=== PATIENT | male | born 1965 | race Caucasian/White ===

== ENCOUNTER 2017-05-06 04:30 | Inpatient (IN) | payer MEDICARE ==
--- NOTE | 2017-05-06 04:35 | ER Document Report ---
ED General - General Chief Complaint: Chest Pain Stated Complaint: PAIN UNDER LEFT ARM/BACK PAIN Time Seen by Provider: 05/06/17 04:33 Notes: Patient is a 52 year old male who presents to the ED via EMS with a chief complaint of sudden onset left subscapular pain with SOB and pain with inspiration. States it feels like when he had a PE in the past. Describes it as a sudden onset sharp stabbing pain below his scapula without any alleviating factors. Worse with inhalation. Denies productive cough, BALDERAS, orthopnea. Denies nausea, vomiting, fevers, chills, lethargy, weakness. 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 He is currently taking coumadin 2mg and recently holding it due to diverticulitis within the past month. His INR was 3 about one week ago and has been taking 2mg PO daily. PMH: PE, PVD with edema TRAVEL OUTSIDE OF THE [place] IN LAST 30 DAYS: No - Related Data Allergies/Adverse Reactions: Penicillins Allergy (Verified 05/06/17 07:00) Home Medications: Current Home Medications Unobtainable [Unobtainable] 05/06/17 [History] Past Medical History - Social History Smoking Status: Current Every Day Smoker Family History: Reviewed & Not Pertinent Review of Systems - Review of Systems Constitutional: No symptoms reported Cardiovascular: See HPI Respiratory: See HPI Gastrointestinal: No symptoms reported Skin: No symptoms reported Neurological/Psychological: No symptoms reported Physical Exam - Vital signs Vitals: Temp Pulse Resp BP Pulse Ox 98.0 F 111 H 24 H 115/75 98 05/06/17 04:35 05/06/17 04:35 05/06/17 04:35 05/06/17 04:35 05/06/17 04:35 - Notes Notes: PHYSICAL EXAM GENERAL: Alert, interacts well. HEAD: Normocephalic, atraumatic. EYES: Pupils equal, round, and reactive to light. Extraocular movements intact. ENT: Oral mucosa moist, tongue midline. NECK: Full range of motion. Supple. Trachea midline. LUNGS: Clear to auscultation bilaterally, no wheezes, rales, or rhonchi. No respiratory distress. HEART: Regular rate and rhythm. No murmurs, gallops, or rubs. ABDOMEN: Soft, nondistended, nontender. No guarding, rebound, or rigidity.. Bowel sounds present in all 4 quadrants. EXTREMITIES: Moves all 4 extremities spontaneously. plaques covering distal extremities with chronic vascular changes 3+ pitting edema, radial and dorsalis pedis pulses 2/4 bilaterally. No cyanosis. NEUROLOGICAL: Alert and oriented x4. Normal speech. PSYCH: Normal affect, normal mood. SKIN: Warm, dry, normal turgor. Course - Re-evaluation Re-evalutation: 05/06/17 06:15 Patient has a left upper lobe cavitary lesion concerning for tuberculosis. Patient is hemodynamically stable, no acute distress and afebrile. Pain is controlled at this time. Patient has been accepted by hospitalist for workup to rule out TB. Patient agrees with plan. 05/06/17 8:00 Lactic elevated at 3/1, IV fluids initiated and hospitalist will come eval the patient to assess for appropriate dispo/floor with negative pressure room - Vital Signs Vital signs: Temp Pulse Resp BP Pulse Ox 97.8 F 78 20 120/65 95 05/07/17 03:27 05/07/17 03:27 05/07/17 03:27 05/07/17 03:27 05/07/17 03:27 - Laboratory Result Diagrams: 05/07/17 03:53 05/07/17 03:53 Laboratory results interpreted by me: 05/06/17 05/06/17 05/06/17 04:45 04:45 07:24 RBC 3.87 L Hgb 12.9 L Hct 37.8 L MCV 98 H RDW 14.2 H Lactic Acid 3.1 H ALT 20 L Creatine Kinase 35 L - Diagnostic Test Radiology reviewed: Image reviewed, Reports reviewed - EKG Interpretation by Me EKG shows normal: Sinus rhythm Rate: Normal Rhythm: NSR When compared to previous EKG there are: Previous EKG unavailable Discharge - Discharge Clinical Impression: Cavitary lesion of lung Condition: Stable Disposition: ADMITTED INPATIENT Admitting Provider: Hospitalist
[2017-05-06 05:14] LABS: ABSOLUTE BASOPHILS # (AUTO) 0.1 10^3/uL (0.0-0.2); ABSOLUTE EOSINOPHILS # (AUTO) 0.2 10^3/uL (0.0-0.6); ABSOLUTE LYMPHOCYTES (AUTO) 1.7 10^3/uL (0.5-4.7); ABSOLUTE MONOCYTES (AUTO) 0.8 10^3/uL (0.1-1.4); ABSOLUTE NEUT (AUTO) 7.4 10^3/uL (1.7-8.2); BASOPHILS % (AUTO) 1.3 % (0-2); EOSINOPHILS % (AUTO) 2.2 % (0-6); HEMATOCRIT 37.8 % (37.9-51.0); HEMOGLOBIN 12.9 g/dL (13.5-17.0); LYMPHOCYTES % (AUTO) 16.9 % (13-45); MEAN CORPUSCULAR HEMOGLOBIN 33.4 pg (27.0-33.4); MEAN CORPUSCULAR HGB CONC 34.1 g/dL (32.0-36.0); MEAN CORPUSCULAR VOLUME 98 fl (80-97); MONOCYTES % (AUTO) 7.8 % (3-13); PLATELET COUNT 406 10^3/uL (150-450); RED BLOOD COUNT 3.87 10^6/uL (4.35-5.55); RED CELL DISTRIBUTION WIDTH 14.2 % (11.5-14.0); SEGMENTED NEUTROPHILS % (AUTO) 71.8 % (42-78); TOTAL CELLS COUNTED % (AUTO) 100 %; WHITE BLOOD COUNT 10.2 10^3/uL (4.0-10.5)
[2017-05-06 05:17] LABS: INTERNATIONAL RATION (INR) 1.08; PROTHROMBIN TIME 14.7 SEC (11.4-15.4)
[2017-05-06 05:35] LABS: ALANINE AMINOTRANSFERASE 20 U/L (21-72); ALKALINE PHOSPHATASE 59 U/L (38-126); ANION GAP 15 (5-19); ASPARTATE AMINO TRANSFERASE 39 U/L (17-59); BILIRUBIN,DIRECT 0.4 mg/dL (0.0-0.4); BILIRUBIN,TOTAL 0.4 mg/dL (0.2-1.3); BLOOD UREA NITROGEN 18 mg/dL (7-20); CALCIUM 9.6 mg/dL (8.4-10.2); CARBON DIOXIDE 25 mmol/L (22-30); CHLORIDE 100 mmol/L (98-107); CREATINE KINASE 35 U/L (55-170); GLUCOSE 105 mg/dL (75-110); POTASSIUM 3.8 mmol/L (3.6-5.0); SODIUM 139.9 mmol/L (137-145); TOTAL PROTEIN 7.9 g/dL (6.3-8.2)
--- NOTE | 2017-05-06 05:37 | RADIOLOGY REPORT (SQ) ---
EXAM DESCRIPTION: CHEST SINGLE VIEW CLINICAL HISTORY: chest pain COMPARISON: None. FINDINGS: Single frontal view of the chest. The cardiomediastinal silhouette has normal size and contour. 3.4 cm cavitary appearing lesion in the left upper lobe. No displaced rib fractures identified. Upper abdominal soft tissues are unremarkable. IMPRESSION: 1. 3.4 similar cavitary appearing lesion in the left upper lobe. This could be of infectious, inflammatory, or neoplastic etiology. CT of the chest recommended for further characterization.
[2017-05-06] MEDS ORDERED: ASPIRIN 81 MG TABLET, CHEWABLE PO ONE (05:46)
[2017-05-06 05:49] LABS: CREATINE KINASE MB < 0.22 ng/mL (<4.55); TROPONIN I < 0.012 ng/mL
--- NOTE | 2017-05-06 06:30 | RADIOLOGY REPORT (SQ) ---
EXAM DESCRIPTION: CTA of the chest per PE protocol with contrast. CLINICAL HISTORY: chest pain, h/o PE COMPARISON: None Available. TECHNIQUE: CTA of the chest obtained following the uncomplicated intravenous administration of 100 mL Isovue-370. 3-D/MIP reformatted images of the chest available for evaluation. FINDINGS: Chest: Mediastinal windows demonstrate an excellent contrast bolus. No pulmonary embolus identified. Enlargement of the main pulmonary artery. This could be seen with pulmonary arterial hypertension. Visualized thyroid gland is unremarkable. Great vessels have normal anatomic configuration. Atherosclerotic calcification aortic arch. Cardiomegaly. No definite calcified coronary artery atherosclerosis. No significant pericardial effusion. No abnormalities of the esophagus. Scattered mediastinal lymph nodes are not enlarged by CT criteria. Lung windows demonstrate left upper lobe thick-walled cavitary lesion measuring 3.6 x 3.4 cm. No abnormalities of the visualized trachea or airways. No other cavitary lesions identified. No pneumothorax, consolidation, or pleural effusion. Limited images of the upper abdomen demonstrate no abnormalities of visualized portions of the liver, spleen, pancreas, adrenal glands, and left kidney. No destructive osseous lesions. DLP: 452.14 mGycm IMPRESSION: 1. No pulmonary embolus. 2. There is 3.6 cm left upper lobe thick-walled cavitary lesion. This could be related to infectious causes such as abscess, mycobacterial pneumonia, or fungal pneumonia. This could be related to inflammatory causes such as Elin's granulomatosis. This could be seen with neoplastic lesions of primary or secondary etiology. This exam was performed according to our departmental dose-optimization program, which includes automated exposure control, adjustment of the mA and/or kV according to patient size and/or use of iterative reconstruction technique.
--- NOTE | 2017-05-06 07:56 | EKG REPORT ---
SEVERITY:- ABNORMAL ECG - SINUS TACHYCARDIA BORDERLINE LEFT AXIS DEVIATION ABNRM R PROG, CONSIDER ASMI OR LEAD PLACEMENT : Confirmed by: Jamey Modi MD 06-May-2017 07:55:33
[2017-05-06] MEDS ORDERED: NORMAL SALINE 1000 ML 2,000 ML IV ONE (08:13)
[2017-05-06] MEDS ORDERED: ONDANSETRON 4 MG TAB.RAPDIS PO PRN (08:33)
[2017-05-06] MEDS ORDERED: ACETAMINOPHEN 325 MG TABLET PO PRN (08:33)
[2017-05-06] MEDS ORDERED: LORAZEPAM INJ 2 MG/1 ML VIAL IV PRN (08:41)
--- NOTE | 2017-05-06 09:15 | PDOC H&P ---
History of Present Illness Admission Date/PCP: 05/06/17 08:21 Patient complains of: Left upper chest pain History of Present Illness: Mikael WHEATLEY JR is a 52 year old male presents with complaint of left shoulder pain patient states that he has not had fever or weight loss nausea vomiting or decreased appetite. Patient also states that he has not had a productive cough. Patient reports that he drinks bourbon nightly and he also reports that he uses tobacco productives regularly. Past Medical History Cardiac Medical History: Reports: Hypertension Pulmonary Medical History: Reports: None EENT Medical History: Reports: None Neurological Medical History: Reports: None Endocrine Medical History: Reports: None Renal/ Medical History: Reports: None Malignancy Medical History: Reports: None GI Medical History: Reports: None Musculoskeltal Medical History: Reports: None Psychiatric Medical History: Reports: None Traumatic Medical History: Reports: None Hematology: Reports: None Infectious Medical History: Reports: None Past Surgical History Past Surgical History: Reports: None Social History Information Source: Patient Lives with: Alone Smoking Status: Unknown if Ever Smoked Frequency of Alcohol Use: Heavy Hx Recreational Drug Use: No Drugs: None Family History Parental Family History Reviewed: Yes Children Family History Reviewed: Yes Sibling(s) Family History Reviewed.: Yes Medication/Allergy Allergies/Adverse Reactions: Penicillins Allergy (Verified 05/06/17 07:00) Review of Systems Constitutional: ABSENT: chills, fever(s), headache(s), weight gain, weight loss Eyes: ABSENT: visual disturbances Ears: ABSENT: hearing changes Cardiovascular: ABSENT: chest pain, dyspnea on exertion, edema, orthropnea, palpitations Respiratory: ABSENT: cough, hemoptysis Gastrointestinal: ABSENT: abdominal pain, constipation, diarrhea, hematemesis, hematochezia, nausea, vomiting Genitourinary: ABSENT: dysuria, hematuria Musculoskeletal: ABSENT: joint swelling Integumentary: ABSENT: rash, wounds Neurological: ABSENT: abnormal gait, abnormal speech, confusion, dizziness, focal weakness, syncope Psychiatric: ABSENT: anxiety, depression, homidical ideation, suicidal ideation Endocrine: ABSENT: cold intolerance, heat intolerance, polydipsia, polyuria Hematologic/Lymphatic: ABSENT: easy bleeding, easy bruising Physical Exam Vital Signs: Temp Pulse Resp BP Pulse Ox 98.0 F 97 27 H 128/73 H 94 05/06/17 04:35 05/06/17 05:01 05/06/17 07:01 05/06/17 07:00 05/06/17 08:42 General appearance: PRESENT: no acute distress, well-developed, well-nourished Head exam: PRESENT: atraumatic, normocephalic Eye exam: PRESENT: conjunctiva pink, EOMI. ABSENT: scleral icterus Ear exam: PRESENT: bleeding Mouth exam: PRESENT: moist, tongue midline Neck exam: ABSENT: carotid bruit, JVD, lymphadenopathy, thyromegaly Respiratory exam: PRESENT: clear to auscultation joe. ABSENT: rales, rhonchi, wheezes Cardiovascular exam: PRESENT: RRR, other - Bilateral lower extremity edema +3. ABSENT: diastolic murmur, rubs, systolic murmur Pulses: PRESENT: normal dorsalis pedis pul Vascular exam: PRESENT: normal capillary refill GI/Abdominal exam: PRESENT: normal bowel sounds, soft. ABSENT: distended, guarding, mass, organolmegaly, rebound, tenderness Rectal exam: PRESENT: deferred Extremities exam: PRESENT: full ROM, pedal edema, other - +3 pitting edema of lower extremities. ABSENT: calf tenderness, clubbing Musculoskeletal exam: PRESENT: full ROM Neurological exam: PRESENT: alert, awake, oriented to person, oriented to place , oriented to time, oriented to situation, CN II-XII grossly intact. ABSENT: motor sensory deficit Psychiatric exam: PRESENT: appropriate affect, normal mood. ABSENT: homicidal ideation, suicidal ideation Skin exam: PRESENT: dry, intact, warm, other - +3 lower extremity pitting with thick crusty skin. ABSENT: cyanosis, rash Results Impressions: Chest X-Ray 05/06/17 05:02 IMPRESSION: 1. 3.4 similar cavitary appearing lesion in the left upper lobe. This could be of infectious, inflammatory, or neoplastic etiology. CT of the chest recommended for further characterization. Chest/Abdomen CTA 05/06/17 05:02 IMPRESSION: 1. No pulmonary embolus. 2. There is 3.6 cm left upper lobe thick-walled cavitary lesion. This could be related to infectious causes such as abscess, mycobacterial pneumonia, or fungal pneumonia. This could be related to inflammatory causes such as Elin's granulomatosis. This could be seen with neoplastic lesions of primary or secondary etiology. This exam was performed according to our departmental dose-optimization program, which includes automated exposure control, adjustment of the mA and/or kV according to patient size and/or use of iterative reconstruction technique. Assessment & Plan - Diagnosis (1) Cavitary lesion of lung Is this a current diagnosis for this admission?: Yes Plan: Suspected tuberculosis: We will place patient in respiratory isolation. Will order AFBs daily. Will consult pulmonary. Will place patient on Zithromax to cover for mycoplasma (2) Left shoulder pain Qualifiers: Chronicity: chronic Qualified Code(s): M25.512 - Pain in left shoulder; G89.29 - Other chronic pain; G89.29 - Other chronic pain Is this a current diagnosis for this admission?: Yes Plan: Secondary to left upper lobe cavity: Supportive care (3) History of DVT of lower extremity Is this a current diagnosis for this admission?: Yes Plan: We will continue patient's Coumadin. INR subtherapeutic. Patient was diagnosed with DVT in 2009 has been on chronic anticoagulation. (4) EtOH dependence Is this a current diagnosis for this admission?: Yes Plan: We will give rally bag. Will also write for as needed Ativan for EtOH withdrawal (5) Lymphedema Is this a current diagnosis for this admission?: Yes Plan: Suspect bilateral lower extremity lymphedema: We will place patient on Lasix (6) Tobacco dependence Is this a current diagnosis for this admission?: Yes Plan: We will write for nicotine patch - Time Time Spent: 30 to 50 Minutes Anticipated discharge: Home
[2017-05-06] MEDS: AZITHROMYCIN 500 MG in DEXTROSE 5%-WATER 250 ML IV SCH (09:42)
[2017-05-06] MEDS ORDERED: LEVOFLOXACIN 500 MG/D5W RTU 500 MG/100 ML RTUPB IV SCH (10:00)
[2017-05-06 13:45] LABS: HEMATOCRIT 38.4 % (37.9-51.0); HEMOGLOBIN 13.5 g/dL (13.5-17.0); MEAN CORPUSCULAR HEMOGLOBIN 33.5 pg (27.0-33.4); MEAN CORPUSCULAR HGB CONC 35.1 g/dL (32.0-36.0); MEAN CORPUSCULAR VOLUME 95 fl (80-97); PLATELET COUNT 343 10^3/uL (150-450); RED BLOOD COUNT 4.03 10^6/uL (4.35-5.55); RED CELL DISTRIBUTION WIDTH 14.2 % (11.5-14.0); WHITE BLOOD COUNT 8.3 10^3/uL (4.0-10.5)
[2017-05-06 13:49] LABS: INTERNATIONAL RATION (INR) 1.18; PROTHROMBIN TIME 15.8 SEC (11.4-15.4)
[2017-05-06] MEDS: HEPARIN SOD (PORCINE) 5,000 UNIT/ML 1 ML SYRINGE SUBCUT SCH ×2 (14:03→22:47)
[2017-05-06] MEDS ORDERED: NORMAL SALINE 1000 ML 1,000 ML with POTASSIUM CHLORIDE 20 MEQ, MAGNESIUM SULFATE 8 MEQ,... IV SCH ×5 (18:00)
[2017-05-06] MEDS: WARFARIN SODIUM 2.5 MG TABLET PO SCH (22:47)
[2017-05-07 02:39] LABS: APPEARANCE,URINE CLEAR; BILIRUBIN,URINE NEGATIVE (NEGATIVE); COLOR,URINE YELLOW; GLUCOSE, URINE NEGATIVE (NEGATIVE); KETONES,URINE NEGATIVE (NEGATIVE); LEUKOCYTE ESTERASE,URINE NEGATIVE (NEGATIVE); NITRITE,URINE NEGATIVE (NEGATIVE); PROTEIN,URINE NEGATIVE (NEGATIVE); URINE SPECIFIC GRAVITY 1.012; UROBILINOGEN,URINE NEGATIVE mg/dL (<2.0)
[2017-05-07 04:33] LABS: HEMATOCRIT 33.5 % (37.9-51.0); HEMOGLOBIN 11.5 g/dL (13.5-17.0); MEAN CORPUSCULAR HEMOGLOBIN 33.3 pg (27.0-33.4); MEAN CORPUSCULAR HGB CONC 34.4 g/dL (32.0-36.0); MEAN CORPUSCULAR VOLUME 97 fl (80-97); PLATELET COUNT 299 10^3/uL (150-450); RED BLOOD COUNT 3.46 10^6/uL (4.35-5.55); RED CELL DISTRIBUTION WIDTH 14.5 % (11.5-14.0)
[2017-05-07 04:55] LABS: ANION GAP 8 (5-19); BLOOD UREA NITROGEN 12 mg/dL (7-20); CALCIUM 9.4 mg/dL (8.4-10.2); CARBON DIOXIDE 24 mmol/L (22-30); CHLORIDE 105 mmol/L (98-107); CHOLESTEROL 138.54 mg/dL (0-200); GLUCOSE 94 mg/dL (75-110); SODIUM 137.1 mmol/L (137-145); TRIGLYCERIDES 167 mg/dL (<150)
[2017-05-07 05:02] LABS: ABSOLUTE LYMPHOCYTES# (MANUAL) 1.8 10^3/uL (0.5-4.7); ABSOLUTE MONOCYTES # (MANUAL) 0.5 10^3/uL (0.1-1.4); ABSOLUTE NEUTROPHILS# (MANUAL) 4.5 10^3/uL (1.7-8.2); BASOPHILS % (MANUAL) 0 % (0-2); EOSINOPHILS % (MANUAL) 3 % (0-6); LYMPHOCYTES % (MANUAL) 26 % (13-45); MONOCYTES % (MANUAL) 7 % (3-13); SEGMENTED NEUTROPHILS % (MAN) 64 % (42-78); TOTAL CELLS COUNTED 100
[2017-05-07 05:03] LABS: PLATELET COMMENT ADEQUATE; RBC MORPHOLOGY COMMENT NORMO-CYTIC/CHROMIC
[2017-05-07 05:05] LABS: DIRECT LDL 65 mg/dL (<100)
[2017-05-07 05:10] LABS: VLDL CHOLESTEROL 33.4 mg/dL (10-31)
[2017-05-07 05:12] LABS: FREE T4 (FREE THYROXINE) 1.48 ng/dL (0.78-2.19)
[2017-05-07 05:25] LABS: THYROID STIMULATING HORMONE 3.23 uIU/mL (0.47-4.68)
[2017-05-07] MEDS: LANSOPRAZOLE 30 MG TAB.RAP.DR PO SCH (05:53)
[2017-05-07] MEDS: HEPARIN SOD (PORCINE) 5,000 UNIT/ML 1 ML SYRINGE SUBCUT SCH ×3 (05:53→21:23)
[2017-05-07] MEDS ORDERED: NORMAL SALINE 1000 ML 1,000 ML with POTASSIUM CHLORIDE 20 MEQ, MAGNESIUM SULFATE 8 MEQ,... IV SCH ×11 (08:00→18:00)
--- NOTE | 2017-05-07 08:46 | PDOC PROGRESS REPORT ---
Subjective Progress Note for:: 05/07/17 Subjective:: She states that he is feeling well today. Nursing states that they will place a PPD today. Reason For Visit: SUSPECT TB, ETOH DEPENDENCE Physical Exam Vital Signs: Temp Pulse Resp BP Pulse Ox 98.7 F 72 18 121/71 94 05/07/17 07:42 05/07/17 07:42 05/07/17 07:42 05/07/17 07:42 05/07/17 07:42 Intake & Output 05/06/17 05/07/17 05/08/17 06:59 06:59 06:59 Intake Total 1000 Output Total 0 Balance 1000 Weight 78 kg General appearance: PRESENT: no acute distress, well-developed, well-nourished Head exam: PRESENT: atraumatic, normocephalic Eye exam: PRESENT: conjunctiva pink, EOMI. ABSENT: scleral icterus Ear exam: PRESENT: normal external ear exam Mouth exam: PRESENT: moist, tongue midline Neck exam: ABSENT: carotid bruit, JVD, lymphadenopathy, thyromegaly Respiratory exam: PRESENT: clear to auscultation joe. ABSENT: rales, rhonchi, wheezes Cardiovascular exam: PRESENT: RRR. ABSENT: diastolic murmur, rubs, systolic murmur Pulses: PRESENT: normal dorsalis pedis pul Vascular exam: PRESENT: normal capillary refill GI/Abdominal exam: PRESENT: normal bowel sounds, soft. ABSENT: distended, guarding, mass, organolmegaly, rebound, tenderness Rectal exam: PRESENT: deferred Extremities exam: PRESENT: full ROM. ABSENT: calf tenderness, clubbing, pedal edema Neurological exam: PRESENT: alert, awake, oriented to person, oriented to place , oriented to time, oriented to situation, CN II-XII grossly intact. ABSENT: motor sensory deficit Psychiatric exam: PRESENT: appropriate affect, normal mood. ABSENT: homicidal ideation, suicidal ideation Skin exam: PRESENT: dry, intact, warm. ABSENT: cyanosis, rash Results Laboratory Results: 05/07/17 03:53 05/07/17 03:53 05/06/17 05/06/17 05/07/17 11:49 13:29 02:05 WBC 8.3 RBC 4.03 L Hgb 13.5 Hct 38.4 MCV 95 MCH 33.5 H MCHC 35.1 RDW 14.2 H Plt Count 343 Seg Neutrophils % Lymphocytes % Monocytes % Eosinophils % Basophils % Absolute Neutrophils Absolute Lymphocytes Absolute Monocytes Absolute Eosinophils Absolute Basophils Sodium Potassium Chloride Carbon Dioxide Anion Gap BUN Creatinine Est GFR ( Amer) Est GFR (Non-Af Amer) Glucose Lactic Acid 1.4 Calcium Triglycerides Cholesterol LDL Cholesterol Direct VLDL Cholesterol HDL Cholesterol TSH Free T4 Urine Color YELLOW Urine Appearance CLEAR Urine pH 6.0 Ur Specific Watson 1.012 Urine Protein NEGATIVE Urine Glucose (UA) NEGATIVE Urine Ketones NEGATIVE Urine Blood SMALL H Urine Nitrite NEGATIVE Ur Leukocyte Esterase NEGATIVE Urine WBC (Auto) 0 Urine RBC (Auto) 2 05/07/17 05/07/17 05/07/17 03:53 03:53 03:53 WBC 7.0 RBC 3.46 L Hgb 11.5 L Hct 33.5 L MCV 97 MCH 33.3 MCHC 34.4 RDW 14.5 H Plt Count 299 Seg Neutrophils % Not Reportable Lymphocytes % Not Reportable Monocytes % Not Reportable Eosinophils % Not Reportable Basophils % Not Reportable Absolute Neutrophils Not Reportable Absolute Lymphocytes Not Reportable Absolute Monocytes Not Reportable Absolute Eosinophils Not Reportable Absolute Basophils Not Reportable Sodium 137.1 Potassium 4.0 Chloride 105 Carbon Dioxide 24 Anion Gap 8 BUN 12 Creatinine 0.78 Est GFR ( Amer) > 60 Est GFR (Non-Af Amer) > 60 Glucose 94 Lactic Acid Calcium 9.4 Triglycerides 167 H Cholesterol 138.54 LDL Cholesterol Direct 65 VLDL Cholesterol 33.4 H HDL Cholesterol 41 TSH 3.23 Free T4 1.48 Urine Color Urine Appearance Urine pH Ur Specific Watson Urine Protein Urine Glucose (UA) Urine Ketones Urine Blood Urine Nitrite Ur Leukocyte Esterase Urine WBC (Auto) Urine RBC (Auto) 05/06/17 13:29 Troponin I < 0.012 Impressions: Chest X-Ray 05/06/17 05:02 IMPRESSION: 1. 3.4 similar cavitary appearing lesion in the left upper lobe. This could be of infectious, inflammatory, or neoplastic etiology. CT of the chest recommended for further characterization. Chest/Abdomen CTA 05/06/17 05:02 IMPRESSION: 1. No pulmonary embolus. 2. There is 3.6 cm left upper lobe thick-walled cavitary lesion. This could be related to infectious causes such as abscess, mycobacterial pneumonia, or fungal pneumonia. This could be related to inflammatory causes such as Elin's granulomatosis. This could be seen with neoplastic lesions of primary or secondary etiology. This exam was performed according to our departmental dose-optimization program, which includes automated exposure control, adjustment of the mA and/or kV according to patient size and/or use of iterative reconstruction technique. Assessment & Plan - Diagnosis (1) Cavitary lesion of lung Is this a current diagnosis for this admission?: Yes Plan: Suspected tuberculosis: Will continue patient's respiratory isolation. AFBs pending. Pulmonary Consulted. Will continue Zithromax to cover for mycoplasma (2) Left shoulder pain Qualifiers: Chronicity: chronic Qualified Code(s): M25.512 - Pain in left shoulder; G89.29 - Other chronic pain; G89.29 - Other chronic pain Is this a current diagnosis for this admission?: Yes Plan: Secondary to left upper lobe cavity: Supportive care (3) History of DVT of lower extremity Is this a current diagnosis for this admission?: Yes Plan: We will continue patient's Coumadin. INR subtherapeutic. Patient was diagnosed with DVT in 2009 has been on chronic anticoagulation. Will continue checking INR. (4) EtOH dependence Is this a current diagnosis for this admission?: Yes Plan: Will continue current treatment. Pt has received Rally bag. (5) Lymphedema Is this a current diagnosis for this admission?: Yes Plan: Suspect bilateral lower extremity lymphedema: Lasix 40 mg PO Qdaily. Will continue to monitor. (6) Tobacco dependence Is this a current diagnosis for this admission?: Yes Plan: Will continue nicotine patch - Time Time Spent with patient: 15-24 minutes
[2017-05-07 10:12] LABS: INTERNATIONAL RATION (INR) 1.14; PROTHROMBIN TIME 15.3 SEC (11.4-15.4)
[2017-05-07] MEDS: AZITHROMYCIN 500 MG in DEXTROSE 5%-WATER 250 ML IV SCH (10:19)
[2017-05-07] MEDS: FUROSEMIDE 40 MG TABLET PO SCH (10:19)
[2017-05-07] MEDS: AMMONIUM LACTATE 12% LOTION 225GM BOTTLE TP SCH ×2 (10:25→17:39)
--- NOTE | 2017-05-07 11:42 | PDOC CONSULTATION ---
Consultation Consult Date: 05/06/17 Attending physician:: SLAVA RENEE Consult reason:: abn cxr History of Present Illness Admission Date/PCP: 05/06/17 08:21 History of Present Illness: Mikael WHEATLEY JR is a 52 year old male began to experience left scapular pain approximately 3 days prior to presentation the became worse and he defeated with him taking a deep breath so he subsequently presented to the emergency room normal chest x-ray and CT scan. He denies shortness of breath or dyspnea on exertion although he admits that he really exerts himself. He denies a productive cough or hemoptysis he is unaware of any prior PPDs. He denies a history of chronic lung disease as a child or adolescent. He admits to exposure to large amounts of passive smoke as a child as well as an adult. He is smoked one half packs a day for 36 years him approximately [id number] history and he continues to smoke up until the time of admission. Occupational exposure to potential respiratory toxins. He has no pets. He denies any recent travel. He denies angina-like chest pain, sleeps on 2 pillows, no PND, no nocturnal cough and occasional admits to edema. He is unaware of any snoring , denies restless sleep, denies nocturia, denies unrestful sleep or excessive daytime somnolence. Past Medical History Cardiac Medical History: Reports: Hypertension, Peripheral Vascular Disease Pulmonary Medical History: Reports: None EENT Medical History: Denies: Ears, Nose Neurological Medical History: Denies: Migraine, Multiple Sclerosis, Seizures Endocrine Medical History: Denies: Gestational Diabetes, Hyperthyroidism, Hypothyroidism, Obesity Renal/ Medical History: Denies: End Stage Renal Disease, Nephrolithiasis Malignancy Medical History: Reports: None GI Medical History: Reports: None Musculoskeltal Medical History: Reports: None Psychiatric Medical History: Reports: Tobacco Dependency Traumatic Medical History: Denies: Gunshot Wound, Stab Wound, Traumatic Brain Injury Hematology: Reports: None Denies: Sickle Cell Disease, Bleeding Tendencies Infectious Medical History: Reports: None Denies: Hepatitis B, Hepatitis C Past Surgical History Past Surgical History: Reports: None Social History Information Source: Patient, [facility] Records Lives with: Alone Smoking Status: Current Every Day Smoker Cigarettes Packs Per Day: 1.5 Number of Years Smokin Passive smoke exposure as: Both Frequency of Alcohol Use: Heavy Hx Recreational Drug Use: No Drugs: None Hx Prescription Drug Abuse: No Do you have pets?: No Have you had any respiratory illnesses as a child?: No Have you been exposed to any sick contacts recently?: No Have you had any recent respiratory illnesses?: No Past Social History Note: Denies any recent incarceration or being around people that have recently been incarcerated Family History Family History: Hypertension, Malignancy Parental Family History Reviewed: Yes Children Family History Reviewed: NA Sibling(s) Family History Reviewed.: NA Medication/Allergy Home Medications: Unobtainable [Unobtainable] 05/06/17 Allergies/Adverse Reactions: Penicillins Allergy (Verified 05/06/17 07:00) Review of Systems Constitutional: ABSENT: anorexia, chills, fatigue, headache(s), night sweats, weakness, weight gain, weight loss Eyes: ABSENT: visual disturbances Ears: ABSENT: hearing changes Nose, Mouth, and Throat: ABSENT: mouth pain, sore throat Cardiovascular: PRESENT: chest pain. ABSENT: dyspnea on exertion, orthropnea, palpitations Respiratory: PRESENT: cough, dyspnea. ABSENT: hemoptysis Gastrointestinal: ABSENT: abdominal pain, bloating, coffee ground emesis, constipation, diarrhea, dysphagia, heartburn, hematemesis, hematochezia, melena , nausea Genitourinary: ABSENT: difficulty urinating, dysuria, hematuria, nocturia Musculoskeletal: ABSENT: back pain, deformity, joint swelling Integumentary: ABSENT: pruritus, rash Neurological: ABSENT: abnormal gait, abnormal movements, abnormal speech, confusion, focal weakness, frequent falls, memory loss Psychiatric: ABSENT: hallucinations, homidical ideation, suicidal ideation Endocrine: ABSENT: cold intolerance, flushing, heat intolerance, menstrual abnormalities, polydipsia, polyuria Physical Exam Vital Signs: Temp Pulse Resp BP Pulse Ox 98.0 F 97 19 124/69 96 05/06/17 04:35 05/06/17 05:01 05/06/17 12:01 05/06/17 12:01 05/06/17 12:01 General appearance: PRESENT: no acute distress, cooperative, disheveled, thin, well-developed. ABSENT: mild distress, morbidly obese, obese, severe distress Head exam: PRESENT: atraumatic, normocephalic Eye exam: PRESENT: conjunctiva pale, EOMI. ABSENT: conjunctival injection, conjunctiva pink, nystagmus, periorbital swelling, scleral icterus Mouth exam: PRESENT: dry mucosa, neck supple, tongue midline. ABSENT: laceration, moist Neck exam: ABSENT: carotid bruit, JVD, lymphadenopathy, thyromegaly, tracheal deviation, tracheostomy Respiratory exam: PRESENT: decreased breath sounds, prolonged expiratory phas, rales, rhonchi, symmetrical, unlabored. ABSENT: accessory muscle use, chest wall tenderness, clear to auscultation joe, crackles, retraction, stridor, tachypnea Cardiovascular exam: PRESENT: RRR, +S1, +S2. ABSENT: rubs Pulses: PRESENT: normal radial pulses GI/Abdominal exam: PRESENT: diminished bowel sounds, soft. ABSENT: tenderness Extremities exam: ABSENT: clubbing, joint swelling Musculoskeletal exam: ABSENT: deformity, dislocation Neurological exam: PRESENT: alert, awake Psychiatric exam: PRESENT: normal mood Skin exam: PRESENT: dry, warm Results Laboratory Results: 05/06/17 13:29 05/06/17 05/06/17 11:49 13:29 WBC 8.3 RBC 4.03 L Hgb 13.5 Hct 38.4 MCV 95 MCH 33.5 H MCHC 35.1 RDW 14.2 H Plt Count 343 Lactic Acid 1.4 05/06/17 13:29 Troponin I < 0.012 Impressions: Chest X-Ray 05/06/17 05:02 IMPRESSION: 1. 3.4 similar cavitary appearing lesion in the left upper lobe. This could be of infectious, inflammatory, or neoplastic etiology. CT of the chest recommended for further characterization. Chest/Abdomen CTA 05/06/17 05:02 IMPRESSION: 1. No pulmonary embolus. 2. There is 3.6 cm left upper lobe thick-walled cavitary lesion. This could be related to infectious causes such as abscess, mycobacterial pneumonia, or fungal pneumonia. This could be related to inflammatory causes such as Elin's granulomatosis. This could be seen with neoplastic lesions of primary or secondary etiology. This exam was performed according to our departmental dose-optimization program, which includes automated exposure control, adjustment of the mA and/or kV according to patient size and/or use of iterative reconstruction technique. Assessment & Plan - Diagnosis (1) Cavitary lesion of lung Is this a current diagnosis for this admission?: Yes Plan: ro tbc YOU ARE DOING COVER WITH ABX FOR ASPIRATION BUT SUSPECT PATIENT WILL NEED BRONCHOSCOPY (2) EtOH dependence Is this a current diagnosis for this admission?: Yes Plan: DT PRECAUTIONS (3) Left shoulder pain Qualifiers: Chronicity: chronic Qualified Code(s): M25.512 - Pain in left shoulder; G89.29 - Other chronic pain; G89.29 - Other chronic pain Is this a current diagnosis for this admission?: Yes (4) Tobacco dependence Is this a current diagnosis for this admission?: Yes Plan: TRANSDERMAL NICOTINE
[2017-05-07] MEDS ORDERED: NICOTINE 21 MG/24 HR PATCH.TD24 TD ONE ×2 (13:15→23:00)
[2017-05-07] MEDS: NICOTINE 21 MG/24 HR PATCH.TD24 TD SCH (13:35)
[2017-05-07] MEDS: WARFARIN SODIUM 2.5 MG TABLET PO SCH (21:23)
[2017-05-08] MEDS: LANSOPRAZOLE 30 MG TAB.RAP.DR PO SCH (05:32)
[2017-05-08] MEDS: HEPARIN SOD (PORCINE) 5,000 UNIT/ML 1 ML SYRINGE SUBCUT SCH ×3 (05:32→21:31)
[2017-05-08 05:39] LABS: HEMATOCRIT 32.5 % (37.9-51.0); HEMOGLOBIN 11.2 g/dL (13.5-17.0); MEAN CORPUSCULAR HEMOGLOBIN 33.3 pg (27.0-33.4); MEAN CORPUSCULAR HGB CONC 34.3 g/dL (32.0-36.0); MEAN CORPUSCULAR VOLUME 97 fl (80-97); PLATELET COUNT 282 10^3/uL (150-450); RED BLOOD COUNT 3.36 10^6/uL (4.35-5.55); RED CELL DISTRIBUTION WIDTH 14.4 % (11.5-14.0); WHITE BLOOD COUNT 5.5 10^3/uL (4.0-10.5)
[2017-05-08 06:18] LABS: ABSOLUTE LYMPHOCYTES# (MANUAL) 1.9 10^3/uL (0.5-4.7); ABSOLUTE MONOCYTES # (MANUAL) 0.4 10^3/uL (0.1-1.4); BASOPHILS % (MANUAL) 0 % (0-2); EOSINOPHILS % (MANUAL) 2 % (0-6); LYMPHOCYTES % (MANUAL) 33 % (13-45); MONOCYTES % (MANUAL) 8 % (3-13); SEGMENTED NEUTROPHILS % (MAN) 55 % (42-78); TOTAL CELLS COUNTED 100
[2017-05-08 06:20] LABS: ALANINE AMINOTRANSFERASE 26 U/L (21-72); ALKALINE PHOSPHATASE 50 U/L (38-126); ANION GAP 7 (5-19); ASPARTATE AMINO TRANSFERASE 20 U/L (17-59); BILIRUBIN,DIRECT 0.2 mg/dL (0.0-0.4); BILIRUBIN,TOTAL 0.3 mg/dL (0.2-1.3); BLOOD UREA NITROGEN 15 mg/dL (7-20); CALCIUM 9.6 mg/dL (8.4-10.2); CARBON DIOXIDE 26 mmol/L (22-30); CHLORIDE 104 mmol/L (98-107); GLUCOSE 98 mg/dL (75-110); HYPOCHROMASIA SLIGHT; MAGNESIUM 1.4 mg/dL (1.6-2.3); POTASSIUM 4.2 mmol/L (3.6-5.0); SODIUM 137.2 mmol/L (137-145)
[2017-05-08 06:21] LABS: ANISOCYTOSIS SLIGHT; PLATELET COMMENT ADEQUATE; PLATELET LARGE PRESENT; POIKILOCYTOSIS SLIGHT; STOMATOCYTES SLIGHT
[2017-05-08] MEDS: FUROSEMIDE 40 MG TABLET PO SCH (09:28)
[2017-05-08] MEDS: AZITHROMYCIN 500 MG in DEXTROSE 5%-WATER 250 ML IV SCH (09:28)
[2017-05-08] MEDS ORDERED: TUBERCULIN,PURIF.PROT.DERIV. 5 TU/0.1 ML TEST 1 ML VIAL ID ONE (10:00)
[2017-05-08 11:19] LABS: INTERNATIONAL RATION (INR) 0.96; PROTHROMBIN TIME 13.5 SEC (11.4-15.4)
--- NOTE | 2017-05-08 14:11 | PDOC PROGRESS REPORT ---
Subjective Progress Note for:: 05/08/17 Subjective:: Pt states that he is feeling well. Pt states that he is not coughing up much. Reason For Visit: SUSPECT TB, ETOH DEPENDENCE Physical Exam Vital Signs: Temp Pulse Resp BP Pulse Ox 98.2 F 79 18 123/83 99 05/08/17 11:27 05/08/17 13:42 05/08/17 11:27 05/08/17 11:27 05/08/17 11:27 Intake & Output 05/07/17 05/08/17 05/09/17 06:59 06:59 06:59 Intake Total 1000 474 237 Output Total 0 0 Balance 1000 474 237 Weight 78 kg 78.1 kg General appearance: PRESENT: no acute distress, well-developed, well-nourished Head exam: PRESENT: atraumatic, normocephalic Eye exam: PRESENT: conjunctiva pink, EOMI. ABSENT: scleral icterus Ear exam: PRESENT: normal external ear exam Mouth exam: PRESENT: moist, tongue midline Neck exam: ABSENT: carotid bruit, JVD, lymphadenopathy, thyromegaly Respiratory exam: PRESENT: clear to auscultation joe. ABSENT: rales, rhonchi, wheezes Cardiovascular exam: PRESENT: RRR. ABSENT: diastolic murmur, rubs, systolic murmur Pulses: PRESENT: normal dorsalis pedis pul Vascular exam: PRESENT: normal capillary refill GI/Abdominal exam: PRESENT: normal bowel sounds, soft. ABSENT: distended, guarding, mass, organolmegaly, rebound, tenderness Extremities exam: PRESENT: other - Pt with lower ext edema +2 pitting edema bilaterally, + thick flakey crusted debrie on lower ext. Musculoskeletal exam: PRESENT: full ROM Neurological exam: PRESENT: alert, awake, oriented to person, oriented to place , oriented to time, oriented to situation, CN II-XII grossly intact. ABSENT: motor sensory deficit Psychiatric exam: PRESENT: appropriate affect, normal mood. ABSENT: homicidal ideation, suicidal ideation Skin exam: PRESENT: warm, other - + 2 pitting edema Bilateral but improving, + thick flakey crusty skin on bilateral lower ext.. ABSENT: cyanosis, rash Results Laboratory Results: 05/08/17 05:12 05/08/17 05:12 05/08/17 05/08/17 05:12 05:12 WBC 5.5 RBC 3.36 L Hgb 11.2 L Hct 32.5 L MCV 97 MCH 33.3 MCHC 34.3 RDW 14.4 H Plt Count 282 Seg Neutrophils % Not Reportable Lymphocytes % Not Reportable Monocytes % Not Reportable Eosinophils % Not Reportable Basophils % Not Reportable Absolute Neutrophils Not Reportable Absolute Lymphocytes Not Reportable Absolute Monocytes Not Reportable Absolute Eosinophils Not Reportable Absolute Basophils Not Reportable Sodium 137.2 Potassium 4.2 Chloride 104 Carbon Dioxide 26 Anion Gap 7 BUN 15 Creatinine 1.01 Est GFR ( Amer) > 60 Est GFR (Non-Af Amer) > 60 Glucose 98 Calcium 9.6 Magnesium 1.4 L Total Bilirubin 0.3 AST 20 ALT 26 Alkaline Phosphatase 50 Total Protein 6.0 L Albumin 3.0 L 05/06/17 13:29 Troponin I < 0.012 Impressions: Chest X-Ray 05/06/17 05:02 IMPRESSION: 1. 3.4 similar cavitary appearing lesion in the left upper lobe. This could be of infectious, inflammatory, or neoplastic etiology. CT of the chest recommended for further characterization. Chest/Abdomen CTA 05/06/17 05:02 IMPRESSION: 1. No pulmonary embolus. 2. There is 3.6 cm left upper lobe thick-walled cavitary lesion. This could be related to infectious causes such as abscess, mycobacterial pneumonia, or fungal pneumonia. This could be related to inflammatory causes such as Elin's granulomatosis. This could be seen with neoplastic lesions of primary or secondary etiology. This exam was performed according to our departmental dose-optimization program, which includes automated exposure control, adjustment of the mA and/or kV according to patient size and/or use of iterative reconstruction technique. Assessment & Plan - Diagnosis (1) Cavitary lesion of lung Is this a current diagnosis for this admission?: Yes Plan: Suspected tuberculosis: Will continue patient's respiratory isolation. AFBs pending. Pulmonary Consulted. Will continue Zithromax to cover for mycoplasma (2) Left shoulder pain Qualifiers: Chronicity: chronic Qualified Code(s): M25.512 - Pain in left shoulder; G89.29 - Other chronic pain; G89.29 - Other chronic pain Is this a current diagnosis for this admission?: Yes Plan: Secondary to left upper lobe cavity: Supportive care (3) History of DVT of lower extremity Is this a current diagnosis for this admission?: Yes Plan: Will increase Coumadin 5 mg QHS. INR subtherapeutic. Patient was diagnosed with DVT in 2009 has been on chronic anticoagulation. (4) EtOH dependence Is this a current diagnosis for this admission?: Yes (5) Lymphedema Is this a current diagnosis for this admission?: Yes Plan: Suspect bilateral lower extremity lymphedema: Lasix 40 mg PO Qdaily. Will continue to monitor. (6) Hypomagnesemia Is this a current diagnosis for this admission?: Yes Plan: Will give magnesium replacement. Will check Magnesium in am (7) Tobacco dependence Is this a current diagnosis for this admission?: Yes Plan: Will continue nicotine patch - Time Time Spent with patient: 15-24 minutes
[2017-05-08] MEDS: COLLAGENASE CLOSTRIDIUM HIST. OINT 30 GM TOP SCH (14:27)
[2017-05-08] MEDS: MAGNESIUM SULFATE/D5W 1 GM/100 ML RTUPB IV SCH ×2 (16:36→18:25)
[2017-05-08] MEDS ORDERED: WARFARIN SODIUM 5 MG TABLET PO SCH (22:00)
[2017-05-09 05:03] LABS: ABSOLUTE EOSINOPHILS # (AUTO) 0.2 10^3/uL (0.0-0.6); ABSOLUTE LYMPHOCYTES (AUTO) 1.7 10^3/uL (0.5-4.7); ABSOLUTE MONOCYTES (AUTO) 0.5 10^3/uL (0.1-1.4); ABSOLUTE NEUT (AUTO) 2.9 10^3/uL (1.7-8.2); BASOPHILS % (AUTO) 0.3 % (0-2); EOSINOPHILS % (AUTO) 3.8 % (0-6); HEMOGLOBIN 11.4 g/dL (13.5-17.0); LYMPHOCYTES % (AUTO) 32.3 % (13-45); MEAN CORPUSCULAR HEMOGLOBIN 33.3 pg (27.0-33.4); MEAN CORPUSCULAR HGB CONC 34.4 g/dL (32.0-36.0); MEAN CORPUSCULAR VOLUME 97 fl (80-97); MONOCYTES % (AUTO) 8.8 % (3-13); PLATELET COUNT 282 10^3/uL (150-450); RED BLOOD COUNT 3.41 10^6/uL (4.35-5.55); RED CELL DISTRIBUTION WIDTH 14.2 % (11.5-14.0); SEGMENTED NEUTROPHILS % (AUTO) 54.8 % (42-78); TOTAL CELLS COUNTED % (AUTO) 100 %; WHITE BLOOD COUNT 5.3 10^3/uL (4.0-10.5)
[2017-05-09] MEDS: LANSOPRAZOLE 30 MG TAB.RAP.DR PO SCH (05:21)
[2017-05-09] MEDS: HEPARIN SOD (PORCINE) 5,000 UNIT/ML 1 ML SYRINGE SUBCUT SCH (05:21)
[2017-05-09 05:29] LABS: ANION GAP 8 (5-19); BLOOD UREA NITROGEN 18 mg/dL (7-20); CALCIUM 9.6 mg/dL (8.4-10.2); CARBON DIOXIDE 27 mmol/L (22-30); CHLORIDE 103 mmol/L (98-107); GLUCOSE 84 mg/dL (75-110); MAGNESIUM 1.8 mg/dL (1.6-2.3); POTASSIUM 4.5 mmol/L (3.6-5.0); SODIUM 138.3 mmol/L (137-145)
[2017-05-09] MEDS ORDERED: LEVALBUTEROL HCL NEB 1.25 MG/3 ML AMPUL NEB ONE (08:00)
--- NOTE | 2017-05-09 08:41 | RADIOLOGY REPORT (SQ) ---
EXAM DESCRIPTION: CHEST PA/LAT COMPLETED DATE/TIME: 05/09/2017 7:47 am REASON FOR STUDY: L lung lesion COMPARISON: 05/06/2017 NUMBER OF VIEWS: Two view TECHNIQUE: Frontal and lateral radiographic images of the chest acquired. LIMITATIONS: None. FINDINGS: LUNGS AND PLEURA: Left upper lobe cavitary mass not significantly changed. The right lung is clear. MEDIASTINUM AND HILAR STRUCTURES: Stable heart size and mediastinal structures. HEART AND VASCULAR STRUCTURES: Stable appearance. BONES: No acute findings. HARDWARE: None in the chest. OTHER: No other significant finding. IMPRESSION: Unchanged cavitary mass left upper lobe. TECHNICAL DOCUMENTATION: JOB ID: [id number] [employer]- All Rights Reserved
[2017-05-09] MEDS: NICOTINE 21 MG/24 HR PATCH.TD24 TD SCH (09:47)
[2017-05-09] MEDS ORDERED: DEXTROSE 40% GEL 15 GM TUBE PO PRN ×2 (09:47)
[2017-05-09] MEDS ORDERED: DEXTROSE 50%-WATER 25 GM/50 ML DISP.SYRIN IV PRN ×2 (09:47)
[2017-05-09] MEDS: FUROSEMIDE 40 MG TABLET PO SCH (09:47)
[2017-05-09] MEDS: AZITHROMYCIN 500 MG in DEXTROSE 5%-WATER 250 ML IV SCH (09:47)
[2017-05-09] MEDS ORDERED: GLUCAGON,HUMAN RECOMB 1 MG INJ SUBCUT PRN (09:47)
[2017-05-09] MEDS: COLLAGENASE CLOSTRIDIUM HIST. OINT 30 GM TOP SCH (09:54)
[2017-05-09 10:04] LABS: INTERNATIONAL RATION (INR) 0.96; PROTHROMBIN TIME 13.5 SEC (11.4-15.4)
[2017-05-09] MEDS ORDERED: PHYTONADIONE INJ 10 MG/1 ML AMPULE SUBCUT PRN (11:00)
--- NOTE | 2017-05-09 12:25 | PDOC PROGRESS REPORT ---
Subjective Progress Note for:: 05/09/17 Subjective:: Awake and alert Reason For Visit: SUSPECT TB, ETOH DEPENDENCE Physical Exam Vital Signs: Temp Pulse Resp BP Pulse Ox 98.1 F 62 12 130/72 H 100 05/09/17 07:51 05/09/17 07:51 05/09/17 07:51 05/09/17 07:51 05/09/17 07:51 Intake & Output 05/08/17 05/09/17 05/10/17 06:59 06:59 06:59 Intake Total 474 1066 Output Total 0 Balance 474 1066 Weight 78.1 kg 76.7 kg General appearance: PRESENT: no acute distress, cooperative, disheveled, well- developed, well-nourished. ABSENT: mild distress, morbidly obese, obese, severe distress, thin Head exam: PRESENT: atraumatic, normocephalic Eye exam: PRESENT: conjunctiva pale, EOMI. ABSENT: conjunctival injection, conjunctiva pink, nystagmus, periorbital swelling, scleral icterus Mouth exam: PRESENT: moist, neck supple, tongue midline. ABSENT: dry mucosa, laceration Neck exam: ABSENT: carotid bruit, JVD, lymphadenopathy, thyromegaly, tracheal deviation, tracheostomy Respiratory exam: PRESENT: decreased breath sounds, prolonged expiratory phas, rhonchi, symmetrical, unlabored. ABSENT: accessory muscle use, chest wall tenderness, rales, retraction, stridor, tachypnea Cardiovascular exam: PRESENT: RRR, +S1, +S2 Pulses: PRESENT: normal radial pulses GI/Abdominal exam: PRESENT: normal bowel sounds, soft Extremities exam: ABSENT: clubbing, joint swelling Musculoskeletal exam: ABSENT: deformity, dislocation Neurological exam: PRESENT: alert, awake Psychiatric exam: PRESENT: normal mood Skin exam: PRESENT: dry, warm Results Laboratory Results: 05/09/17 03:58 05/09/17 03:58 05/09/17 05/09/17 03:58 03:58 WBC 5.3 RBC 3.41 L Hgb 11.4 L Hct 33.0 L MCV 97 MCH 33.3 MCHC 34.4 RDW 14.2 H Plt Count 282 Seg Neutrophils % 54.8 Lymphocytes % 32.3 Monocytes % 8.8 Eosinophils % 3.8 Basophils % 0.3 Absolute Neutrophils 2.9 Absolute Lymphocytes 1.7 Absolute Monocytes 0.5 Absolute Eosinophils 0.2 Absolute Basophils 0.0 Sodium 138.3 Potassium 4.5 Chloride 103 Carbon Dioxide 27 Anion Gap 8 BUN 18 Creatinine 1.11 Est GFR ( Amer) > 60 Est GFR (Non-Af Amer) > 60 Glucose 84 Calcium 9.6 Magnesium 1.8 05/06/17 13:29 Troponin I < 0.012 Impressions: Chest/Abdomen CTA 05/06/17 05:02 IMPRESSION: 1. No pulmonary embolus. 2. There is 3.6 cm left upper lobe thick-walled cavitary lesion. This could be related to infectious causes such as abscess, mycobacterial pneumonia, or fungal pneumonia. This could be related to inflammatory causes such as Elin's granulomatosis. This could be seen with neoplastic lesions of primary or secondary etiology. This exam was performed according to our departmental dose-optimization program, which includes automated exposure control, adjustment of the mA and/or kV according to patient size and/or use of iterative reconstruction technique. Chest X-Ray 05/09/17 06:00 IMPRESSION: Unchanged cavitary mass left upper lobe. Assessment & Plan - Diagnosis (1) Cavitary lesion of lung Is this a current diagnosis for this admission?: Yes Plan: Fiberoptic bronchoscopy with bronchoalveolar lavage and transbronchial biopsies scheduled for Tuesday 10 AM risk and dangers benefits discussed with patient and he agrees that he would like to continue (2) EtOH dependence Is this a current diagnosis for this admission?: Yes Plan: No evidence of DTs (3) Left shoulder pain Qualifiers: Chronicity: chronic Qualified Code(s): M25.512 - Pain in left shoulder; G89.29 - Other chronic pain; G89.29 - Other chronic pain Is this a current diagnosis for this admission?: Yes Plan: Decreased but not resolved (4) Tobacco dependence Is this a current diagnosis for this admission?: Yes Plan: TRANSDERMAL NICOTINE
[2017-05-09 14:11] LABS: APPEARANCE,URINE CLEAR; BILIRUBIN,URINE NEGATIVE (NEGATIVE); COLOR,URINE YELLOW; GLUCOSE, URINE NEGATIVE (NEGATIVE); KETONES,URINE NEGATIVE (NEGATIVE); LEUKOCYTE ESTERASE,URINE NEGATIVE (NEGATIVE); NITRITE,URINE NEGATIVE (NEGATIVE); PROTEIN,URINE NEGATIVE (NEGATIVE); URINE SPECIFIC GRAVITY 1.012; UROBILINOGEN,URINE NEGATIVE mg/dL (<2.0)
[2017-05-10 05:31] LABS: ALANINE AMINOTRANSFERASE 31 U/L (21-72); ALBUMIN 3.3 g/dL (3.5-5.0); ALKALINE PHOSPHATASE 54 U/L (38-126); ANION GAP 8 (5-19); ASPARTATE AMINO TRANSFERASE 27 U/L (17-59); BILIRUBIN,DIRECT 0.2 mg/dL (0.0-0.4); BILIRUBIN,TOTAL 0.3 mg/dL (0.2-1.3); BLOOD UREA NITROGEN 22 mg/dL (7-20); CALCIUM 9.7 mg/dL (8.4-10.2); CARBON DIOXIDE 25 mmol/L (22-30); CHLORIDE 105 mmol/L (98-107); GLUCOSE 87 mg/dL (75-110); POTASSIUM 4.4 mmol/L (3.6-5.0); SODIUM 138.2 mmol/L (137-145); TOTAL PROTEIN 6.4 g/dL (6.3-8.2)
[2017-05-10] MEDS: LANSOPRAZOLE 30 MG TAB.RAP.DR PO SCH (05:32)
[2017-05-10] MEDS ORDERED: ONDANSETRON HCL INJ/PF 4 MG/2 ML SDV ONE (08:21)
[2017-05-10] MEDS ORDERED: SUCCINYLCHOLINE CHLORIDE INJ 200 MG/10 ML VIAL ONE (08:21)
[2017-05-10] MEDS ORDERED: LIDOCAINE 2% INJ-PF (20 MG/ML) 2 ML AMPUL ONE (08:21)
[2017-05-10] MEDS: FUROSEMIDE 40 MG TABLET PO SCH (08:36)
[2017-05-10] MEDS ORDERED: EPINEPHRINE INJ 1 MG/10 ML DISP.SYRIN ONE (10:30)
[2017-05-10] MEDS ORDERED: MIDAZOLAM 2 MG/2 ML INJ ONE (10:39)
[2017-05-10] MEDS ORDERED: PROPOFOL INJ 200 MG/20 ML VIAL IV ONE (10:39)
[2017-05-10] MEDS ORDERED: FENTANYL CITRATE INJ/PF 100 MCG/2 ML AMPUL ONE (10:39)
--- NOTE | 2017-05-10 12:45 | RADIOLOGY REPORT (SQ) ---
EXAM DESCRIPTION: CHEST SINGLE VIEW COMPLETED DATE/TIME: 05/10/2017 12:13 pm REASON FOR STUDY: S/P Lung Biospy and bronchoscopy COMPARISON: CT angio chest 05/06/2017 Chest film 05/06/2017, 05/09/2017 EXAM PARAMETERS: NUMBER OF VIEWS: One view. TECHNIQUE: Single frontal radiographic view of the chest acquired. RADIATION DOSE: NA LIMITATIONS: None. FINDINGS: LUNGS AND PLEURA: 3 to 4 cm cavitary mass left upper lobe is unchanged from prior studies. No focal infiltrates. No pleural effusion. No pneumothorax. MEDIASTINUM AND HILAR STRUCTURES: No masses. Contour normal. HEART AND VASCULAR STRUCTURES: Heart normal in size. Normal vasculature. BONES: No acute findings. HARDWARE: None in the chest. OTHER: No other significant finding. IMPRESSION: No pneumothorax post left lung biopsy. 3 to 4 cm cavitary mass left upper lobe stable compared to previous studies TECHNICAL DOCUMENTATION: JOB ID: [id number] [employer]- All Rights Reserved
[2017-05-10 13:31] LABS: FLUID APPEARANCE CLEAR; FLUID COLOR COLORLESS; FLUID SOURCE LUNG; FLUID TYPE BRONCHIAL WASH; FLUID VISCOSITY LIQUID
--- NOTE | 2017-05-10 13:31 | RADIOLOGY REPORT (SQ) ---
EXAM DESCRIPTION: CHEST SINGLE VIEW; NO CHG FLUORO COMPLETED DATE/TIME: 05/10/2017 1:19 pm REASON FOR STUDY: S/P LUNG BIOPSY COMPARISON: Two-view chest 05/09/2017 FLUOROSCOPY TIME: 3.1 minutes 2 digital C-arm images saved to PACS. TECHNIQUE: Intra-operative images acquired during surgical procedure to evaluate progress. NUMBER OF IMAGES: 2 digital C-arm images LIMITATIONS: None. FINDINGS: Intra procedural imaging and fluoro during bronchoscopy. IMPRESSION: Intra procedural imaging and fluoro COMMENT: Quality ID [id number]: Final reports for procedures using fluoroscopy that document radiation exp osure indices, or exposure time and number of fluorographic images (if radiation exposure indices are not available) Please consult full operative report of the attending physician for description of the procedure. TECHNICAL DOCUMENTATION: JOB ID: [id number] [employer]- All Rights Reserved
--- NOTE | 2017-05-10 13:31 | RADIOLOGY REPORT (SQ) ---
EXAM DESCRIPTION: CHEST SINGLE VIEW; NO CHG FLUORO COMPLETED DATE/TIME: 05/10/2017 1:19 pm REASON FOR STUDY: S/P LUNG BIOPSY COMPARISON: Two-view chest 05/09/2017 FLUOROSCOPY TIME: 3.1 minutes 2 digital C-arm images saved to PACS. TECHNIQUE: Intra-operative images acquired during surgical procedure to evaluate progress. NUMBER OF IMAGES: 2 digital C-arm images LIMITATIONS: None. FINDINGS: Intra procedural imaging and fluoro during bronchoscopy. IMPRESSION: Intra procedural imaging and fluoro COMMENT: Quality ID [id number]: Final reports for procedures using fluoroscopy that document radiation exp osure indices, or exposure time and number of fluorographic images (if radiation exposure indices are not available) Please consult full operative report of the attending physician for description of the procedure. TECHNICAL DOCUMENTATION: JOB ID: [id number] [employer]- All Rights Reserved
[2017-05-10] MEDS: AZITHROMYCIN 250 MG TABLET PO SCH (13:45)
[2017-05-10] MEDS: NICOTINE 21 MG/24 HR PATCH.TD24 TD SCH (13:46)
[2017-05-10] MEDS: COLLAGENASE CLOSTRIDIUM HIST. OINT 30 GM TOP SCH (13:47)
[2017-05-10 14:09] LABS: INTERNATIONAL RATION (INR) 1.01
--- NOTE | 2017-05-10 14:23 | Operative Report ---
Operative Report DATE OF SURGERY: 05/10/17 Operative Report: Patient was kept n.p.o. 14 hours prior to procedure. Taken to the preop area where IV access was secured consents were reviewed and signatures confirmed. He was then taken to the bronchoscopy suite where he was intubated by anesthesiology. Then using a T size [place] bronchoscope was tracheobronchial tree was explored there were no abnormalities of his distal trachea no splaying of the mary is right mainstem bronchus right bronchus intermedius right middle lobe right lower lobe and right upper lobe all appear to be within normal limits. There are no abnormalities of the left mainstem bronchus left lower lobe or lingula. There were no mucosal abnormalities or changes in the subsegments of the left upper left upper lobe multiple lavages of the left upper lobe and transbronchial biopsy of the left upper lobe were taken and sent to the laboratory for appropriate cultures and studies postprocedure chest x- ray showed no pneumothorax is postprocedure SaO2 was 99% . PREOPERATIVE DIAGNOSIS: EUSEBIO cavation POSTOPERATIVE DIAGNOSIS: same OPERATION: fiberoptic bronchoscopy with bronchchoalveolar lavage and trans bronchial biopsies SURGEON: FAIZA TIJERINA ANESTHESIA: GA TISSUE REMOVED OR ALTERED: EUSEBIO lavage. EUSEBIO transbroncial bx COMPLICATIONS: none ESTIMATED BLOOD LOSS: 0 ml
--- NOTE | 2017-05-10 15:46 | PDOC PROGRESS REPORT ---
Subjective Progress Note for:: 05/10/17 Reason For Visit: SUSPECT TB, ETOH DEPENDENCE 52-year-old male with history of Alcohol dependence Lymphedema Lower extremity DVT Tobacco dependence. He presented to the hospital with left-sided shoulder pain and was found to have a left upper lobe cavitary lung lesion. He is on respiratory isolation and AFBs are pending. Pulmonology service is following the patient and he is on Zithromax. Physical Exam Vital Signs: Temp Pulse Resp BP Pulse Ox 97.8 F 62 18 121/80 98 05/09/17 19:18 05/10/17 02:00 05/09/17 19:18 05/09/17 19:18 05/09/17 19:18 Intake & Output 05/09/17 05/10/17 05/11/17 06:59 06:59 06:59 Intake Total 1066 655 Balance 1066 655 Weight 76.7 kg General appearance: PRESENT: no acute distress Head exam: PRESENT: atraumatic, normocephalic Eye exam: PRESENT: conjunctiva pink Mouth exam: PRESENT: moist Neck exam: ABSENT: tracheal deviation Respiratory exam: PRESENT: clear to auscultation joe, symmetrical, unlabored. ABSENT: accessory muscle use, crackles Cardiovascular exam: PRESENT: RRR. ABSENT: systolic murmur Vascular exam: ABSENT: pallor GI/Abdominal exam: PRESENT: normal bowel sounds, soft. ABSENT: tenderness Rectal exam: PRESENT: deferred Extremities exam: PRESENT: other - positive pedal edema and chronic venous stasis skin changes bilateral lower extremities Results Laboratory Results: 05/09/17 03:58 05/10/17 04:11 05/09/17 05/09/17 05/10/17 13:50 13:50 04:11 Sodium 138.2 Potassium 4.4 Chloride 105 Carbon Dioxide 25 Anion Gap 8 BUN 22 H Creatinine 0.99 Est GFR ( Amer) > 60 Est GFR (Non-Af Amer) > 60 Glucose 87 Calcium 9.7 Total Bilirubin 0.3 AST 27 ALT 31 Alkaline Phosphatase 54 Total Protein 6.4 Albumin 3.3 L Urine Color YELLOW Urine Appearance CLEAR Urine pH 7.0 Ur Specific [place] 1.012 Urine Protein NEGATIVE Urine Glucose (UA) NEGATIVE Urine Ketones NEGATIVE Urine Blood NEGATIVE Urine Nitrite NEGATIVE Ur Leukocyte Esterase NEGATIVE Urine WBC (Auto) 2 Urine RBC (Auto) 1 Stool Occult Blood NEGATIVE 05/07/17 09:22 Sputum Gram Stain - Final 05/07/17 09:22 Sputum Sputum Culture - Final NORMAL MANDY 05/06/17 13:29 Troponin I < 0.012 Impressions: Chest/Abdomen CTA 05/06/17 05:02 IMPRESSION: 1. No pulmonary embolus. 2. There is 3.6 cm left upper lobe thick-walled cavitary lesion. This could be related to infectious causes such as abscess, mycobacterial pneumonia, or fungal pneumonia. This could be related to inflammatory causes such as Elin's granulomatosis. This could be seen with neoplastic lesions of primary or secondary etiology. This exam was performed according to our departmental dose-optimization program, which includes automated exposure control, adjustment of the mA and/or kV according to patient size and/or use of iterative reconstruction technique. Chest X-Ray 05/09/17 06:00 IMPRESSION: Unchanged cavitary mass left upper lobe. Assessment & Plan - Diagnosis (1) Cavitary lesion of lung Is this a current diagnosis for this admission?: Yes Plan: Bronchoscopy done today- will follow up on results (2) EtOH dependence Is this a current diagnosis for this admission?: Yes (3) History of DVT of lower extremity Is this a current diagnosis for this admission?: Yes (4) Hypomagnesemia Is this a current diagnosis for this admission?: Yes Plan: Replace and monitor (5) Left shoulder pain Qualifiers: Chronicity: chronic Qualified Code(s): M25.512 - Pain in left shoulder; G89.29 - Other chronic pain; G89.29 - Other chronic pain Is this a current diagnosis for this admission?: Yes Plan: Analgesics prn. (6) Lung mass Is this a current diagnosis for this admission?: Yes Plan: s/p Bronchoscopy. (7) Lymphedema Is this a current diagnosis for this admission?: Yes Plan: chronic. (8) Tobacco dependence Is this a current diagnosis for this admission?: Yes - Time Time Spent with patient: 25-34 minutes
[2017-05-11] MEDS: LANSOPRAZOLE 30 MG TAB.RAP.DR PO SCH (05:06)
[2017-05-11 05:14] LABS: HEMATOCRIT 33.8 % (37.9-51.0); HEMOGLOBIN 11.6 g/dL (13.5-17.0); MEAN CORPUSCULAR HEMOGLOBIN 33.2 pg (27.0-33.4); MEAN CORPUSCULAR HGB CONC 34.2 g/dL (32.0-36.0); MEAN CORPUSCULAR VOLUME 97 fl (80-97); PLATELET COUNT 242 10^3/uL (150-450); RED BLOOD COUNT 3.49 10^6/uL (4.35-5.55); RED CELL DISTRIBUTION WIDTH 14.2 % (11.5-14.0)
[2017-05-11 05:18] LABS: INTERNATIONAL RATION (INR) 1.05; PROTHROMBIN TIME 14.4 SEC (11.4-15.4)
[2017-05-11 05:40] LABS: ALANINE AMINOTRANSFERASE 33 U/L (21-72); ALBUMIN 3.3 g/dL (3.5-5.0); ALKALINE PHOSPHATASE 56 U/L (38-126); ANION GAP 8 (5-19); ASPARTATE AMINO TRANSFERASE 26 U/L (17-59); BILIRUBIN,DIRECT 0.2 mg/dL (0.0-0.4); BILIRUBIN,TOTAL 0.6 mg/dL (0.2-1.3); BLOOD UREA NITROGEN 19 mg/dL (7-20); CALCIUM 9.9 mg/dL (8.4-10.2); CARBON DIOXIDE 24 mmol/L (22-30); CHLORIDE 105 mmol/L (98-107); GLUCOSE 77 mg/dL (75-110); MAGNESIUM 1.6 mg/dL (1.6-2.3); POTASSIUM 4.1 mmol/L (3.6-5.0); SODIUM 137.4 mmol/L (137-145); TOTAL PROTEIN 6.5 g/dL (6.3-8.2)
[2017-05-11] MEDS: AZITHROMYCIN 250 MG TABLET PO SCH (09:51)
[2017-05-11] MEDS: NICOTINE 21 MG/24 HR PATCH.TD24 TD SCH (09:51)
[2017-05-11] MEDS: COLLAGENASE CLOSTRIDIUM HIST. OINT 30 GM TOP SCH (09:53)
[2017-05-11] MEDS: FUROSEMIDE 40 MG TABLET PO SCH (09:54)
[2017-05-11] MEDS: MAGNESIUM SULFATE/D5W 1 GM/100 ML RTUPB IV SCH ×2 (11:52→13:55)
[2017-05-11 15:42] VITALS: BP 123/79
--- NOTE | 2017-05-11 15:54 | PDOC PROGRESS REPORT ---
Subjective Progress Note for:: 05/11/17 Subjective:: 52-year-old male with history of Alcohol dependence Lymphedema Lower extremity DVT Tobacco dependence. He presented to the hospital with left-sided shoulder pain and was found to have a left upper lobe cavitary lung lesion. CT scan of the chest showed a 3.6 cm left upper lobe thick-walled cavitary lesion. Differential diagnosis includes abscess, mycobacterial pneumonia or fungal pneumonia. Primary or secondary neoplastic lesions or Elin's granulomatosis are also in the differential diagnosis. Bronchoscopy was performed on May [address] Avilez. Multiple lavages of the left upper lobe and transbronchial biopsy were performed. Postprocedure chest x-ray showed no pneumothorax and the patient did well. Sputum AFB smear showed no acid-fast bacilli. Results are pending. Sputum Gram stain and culture were negative. Blood cultures, 2 sets have been negative for 4 days. Reason For Visit: SUSPECT TB, ETOH DEPENDENCE Physical Exam Vital Signs: Temp Pulse Resp BP Pulse Ox 97.6 F 65 12 135/80 H 99 05/11/17 07:38 05/11/17 07:38 05/11/17 07:38 05/11/17 07:38 05/11/17 07:38 Intake & Output 05/10/17 05/11/17 05/12/17 06:59 06:59 06:59 Intake Total 655 1187 Output Total 10 Balance 655 1177 Weight 77.9 kg General appearance: PRESENT: no acute distress Eye exam: ABSENT: nystagmus Ear exam: PRESENT: normal external ear exam Neck exam: ABSENT: tracheal deviation Respiratory exam: PRESENT: rhonchi, unlabored. ABSENT: wheezes GI/Abdominal exam: PRESENT: normal bowel sounds, soft. ABSENT: tenderness Rectal exam: PRESENT: deferred Results Laboratory Results: 05/11/17 03:59 05/11/17 03:59 05/10/17 05/11/17 05/11/17 11:14 03:59 03:59 WBC 9.0 RBC 3.49 L Hgb 11.6 L Hct 33.8 L MCV 97 MCH 33.2 MCHC 34.2 RDW 14.2 H Plt Count 242 Sodium 137.4 Potassium 4.1 Chloride 105 Carbon Dioxide 24 Anion Gap 8 BUN 19 Creatinine 1.02 Est GFR ( Amer) > 60 Est GFR (Non-Af Amer) > 60 Glucose 77 Calcium 9.9 Phosphorus 4.0 Magnesium 1.6 Total Bilirubin 0.6 AST 26 ALT 33 Alkaline Phosphatase 56 Total Protein 6.5 Albumin 3.3 L Fluid Type BRONCHIAL WASH Fluid Source LUNG Fluid Color COLORLESS Fluid Appearance CLEAR Fluid Viscosity LIQUID Fluid WBC 14 Fluid RBC 17 05/06/17 13:29 Troponin I < 0.012 Impressions: Chest/Abdomen CTA 05/06/17 05:02 IMPRESSION: 1. No pulmonary embolus. 2. There is 3.6 cm left upper lobe thick-walled cavitary lesion. This could be related to infectious causes such as abscess, mycobacterial pneumonia, or fungal pneumonia. This could be related to inflammatory causes such as Elin's granulomatosis. This could be seen with neoplastic lesions of primary or secondary etiology. This exam was performed according to our departmental dose-optimization program, which includes automated exposure control, adjustment of the mA and/or kV according to patient size and/or use of iterative reconstruction technique. Fluoroscopy 05/10/17 00:00 IMPRESSION: Intra procedural imaging and fluoro Chest X-Ray 05/10/17 09:48 IMPRESSION: No pneumothorax post left lung biopsy. 3 to 4 cm cavitary mass left upper lobe stable compared to previous studies Assessment & Plan - Diagnosis (1) Cavitary lesion of lung Is this a current diagnosis for this admission?: Yes (2) EtOH dependence Is this a current diagnosis for this admission?: Yes (3) History of DVT of lower extremity Is this a current diagnosis for this admission?: Yes (4) Hypomagnesemia Is this a current diagnosis for this admission?: Yes (5) Left shoulder pain Qualifiers: Chronicity: chronic Qualified Code(s): M25.512 - Pain in left shoulder; G89.29 - Other chronic pain; G89.29 - Other chronic pain Is this a current diagnosis for this admission?: Yes (6) Lung mass Is this a current diagnosis for this admission?: Yes (7) Lymphedema Is this a current diagnosis for this admission?: Yes (8) Tobacco dependence Is this a current diagnosis for this admission?: Yes - Time Time Spent with patient: 15-24 minutes
--- NOTE | 2017-05-11 15:59 | PDOC DISCHARGE SUMMARY ---
General - Admit/Disc Date/PCP Admission Date/Primary Care Provider: 05/06/17 08:21 Dr. Alexandra Huerta Pulm: Dr. Dario Avilez Discharge Date: 05/11/17 - Discharge Diagnosis (1) Cavitary lesion of lung Is this a current diagnosis for this admission?: Yes Summary: s/p bronchoscopy with lavage and biopsies on 05/10/17- to f/u with Dr. Avilez (2) EtOH dependence Is this a current diagnosis for this admission?: Yes (3) History of DVT of lower extremity Is this a current diagnosis for this admission?: Yes (4) Hypomagnesemia Is this a current diagnosis for this admission?: Yes (5) Left shoulder pain Is this a current diagnosis for this admission?: Yes (6) Lung mass Is this a current diagnosis for this admission?: Yes (7) Lymphedema Is this a current diagnosis for this admission?: Yes (8) Tobacco dependence Is this a current diagnosis for this admission?: Yes - Additional Information Resuscitation Status: Full Code Discharge Diet: As Tolerated Discharge Activity: Activity As Tolerated Home Medications: Lisinopril [Zestril] 5 mg PO DAILY 05/11/17 Magnesium Oxide [Mag-Ox 400 mg Tablet] 400 mg PO DAILY@1100 tablet 05/11/17 Nicotine [Nicoderm 21 mg/24 Hr Transderm Patch] 1 each TD DAILY #0 patch.td24 Warfarin Sodium [Coumadin 4 mg Tablet] 4 mg PO DAILY 05/11/17 Warfarin Sodium [Coumadin 5 mg Tablet] 5 mg PO QHS tablet 05/11/17 History of Present Illness History of Present Illness: Mikael WHEATLEY JR is a 52 year old male with history of Alcohol dependence Lymphedema Lower extremity DVT Tobacco dependence. He presented to the hospital with left-sided shoulder pain and was found to have a left upper lobe cavitary lung lesion. Sputum AFB negative x 3 Bronchoscopy with lavage and biopsy done on 05/10/[address] Avilez. He tolerated the procedure well, and is stable for discharge. He needs to follow up with his PCP in [address] Avilez in 1 week Physical Exam Vital Signs: Temp Pulse Resp BP Pulse Ox 97.8 F 59 L 18 123/79 100 05/11/17 15:25 05/11/17 15:25 05/11/17 15:25 05/11/17 15:25 05/11/17 15:25 Intake & Output 05/10/17 05/11/17 05/12/17 06:59 06:59 06:59 Intake Total 655 1187 Output Total 10 Balance 655 1177 Weight 77.9 kg General appearance: PRESENT: no acute distress Eye exam: ABSENT: nystagmus Mouth exam: PRESENT: neck supple Neck exam: ABSENT: tracheal deviation Respiratory exam: PRESENT: rhonchi, unlabored Cardiovascular exam: PRESENT: RRR - He has b/l Lower extremity lymphedema Results Laboratory Results: 05/11/17 03:59 05/11/17 03:59 05/11/17 05/11/17 03:59 03:59 WBC 9.0 RBC 3.49 L Hgb 11.6 L Hct 33.8 L MCV 97 MCH 33.2 MCHC 34.2 RDW 14.2 H Plt Count 242 Sodium 137.4 Potassium 4.1 Chloride 105 Carbon Dioxide 24 Anion Gap 8 BUN 19 Creatinine 1.02 Est GFR ( Amer) > 60 Est GFR (Non-Af Amer) > 60 Glucose 77 Calcium 9.9 Phosphorus 4.0 Magnesium 1.6 Total Bilirubin 0.6 AST 26 ALT 33 Alkaline Phosphatase 56 Total Protein 6.5 Albumin 3.3 L 05/10/17 11:14 Bronchial Washings AFB Smear Concentration - Final 05/10/17 11:14 Bronchial Washings Acid Fast Bacilli Smear - Final 05/08/17 05:30 Sputum AFB Smear Concentration - Final 05/08/17 05:30 Sputum Acid Fast Bacilli Smear - Final 05/07/17 09:22 Sputum AFB Smear Concentration - Final 05/07/17 09:22 Sputum Acid Fast Bacilli Smear - Final 05/06/17 21:00 Sputum AFB Smear Concentration - Final 05/06/17 21:00 Sputum Acid Fast Bacilli Smear - Final 05/06/17 13:29 Blood Blood Culture - Final NO GROWTH IN 5 DAYS 05/06/17 09:45 Blood Blood Culture - Final NO GROWTH IN 5 DAYS 05/06/17 13:29 Troponin I < 0.012 Impressions: Chest/Abdomen CTA 05/06/17 05:02 IMPRESSION: 1. No pulmonary embolus. 2. There is 3.6 cm left upper lobe thick-walled cavitary lesion. This could be related to infectious causes such as abscess, mycobacterial pneumonia, or fungal pneumonia. This could be related to inflammatory causes such as Elin's granulomatosis. This could be seen with neoplastic lesions of primary or secondary etiology. This exam was performed according to our departmental dose-optimization program, which includes automated exposure control, adjustment of the mA and/or kV according to patient size and/or use of iterative reconstruction technique. Fluoroscopy 05/10/17 00:00 IMPRESSION: Intra procedural imaging and fluoro Chest X-Ray 05/10/17 09:48 IMPRESSION: No pneumothorax post left lung biopsy. 3 to 4 cm cavitary mass left upper lobe stable compared to previous studies Status: Image reviewed by me Plan Time Spent: Greater than 30 Minutes
[2017-05-12] MEDS ORDERED: MAGNESIUM OXIDE 400 MG TABLET PO SCH (11:00)
--- NOTE | 2017-05-12 19:17 | PDOC PROGRESS REPORT ---
Subjective Progress Note for:: 05/11/17 Subjective:: Awake and alert Reason For Visit: SUSPECT TB, ETOH DEPENDENCE Physical Exam Vital Signs: Temp Pulse Resp BP Pulse Ox 97.8 F 59 L 18 123/79 100 05/11/17 15:25 05/11/17 15:25 05/11/17 15:25 05/11/17 15:25 05/11/17 15:25 Intake & Output 05/11/17 05/12/17 05/13/17 06:59 06:59 06:59 Intake Total 1187 Output Total 10 Balance 1177 Weight 77.9 kg General appearance: PRESENT: no acute distress, cooperative, disheveled, thin, well-developed. ABSENT: mild distress, morbidly obese, obese, severe distress Head exam: PRESENT: atraumatic, normocephalic Eye exam: PRESENT: conjunctiva pale, EOMI. ABSENT: conjunctival injection, conjunctiva pink, scleral icterus Mouth exam: PRESENT: moist, neck supple, tongue midline. ABSENT: dry mucosa, laceration Neck exam: ABSENT: carotid bruit, JVD, lymphadenopathy, thyromegaly, tracheal deviation, tracheostomy Respiratory exam: PRESENT: decreased breath sounds, prolonged expiratory phas, rhonchi, symmetrical, unlabored. ABSENT: accessory muscle use, chest wall tenderness, clear to auscultation joe, crackles, rales, retraction, stridor, tachypnea Cardiovascular exam: PRESENT: RRR, +S1, +S2 Pulses: PRESENT: normal radial pulses GI/Abdominal exam: PRESENT: diminished bowel sounds, soft Extremities exam: PRESENT: full ROM. ABSENT: clubbing, joint swelling Musculoskeletal exam: PRESENT: ambulatory, full ROM. ABSENT: deformity, dislocation Neurological exam: PRESENT: alert, awake Psychiatric exam: PRESENT: normal mood Skin exam: PRESENT: dry, warm Results Laboratory Results: 05/11/17 03:59 05/11/17 03:59 05/10/17 11:14 Bronchial Washings Gram Stain - Final 05/10/17 11:14 Bronchial Washings Bronchial Washings Culture - Final NORMAL MANDY 05/10/17 11:14 Bronchial Washings AFB Smear Concentration - Final 05/10/17 11:14 Bronchial Washings Acid Fast Bacilli Smear - Final 05/08/17 05:30 Sputum AFB Smear Concentration - Final 05/08/17 05:30 Sputum Acid Fast Bacilli Smear - Final 05/07/17 09:22 Sputum AFB Smear Concentration - Final 05/07/17 09:22 Sputum Acid Fast Bacilli Smear - Final 05/06/17 21:00 Sputum AFB Smear Concentration - Final 05/06/17 21:00 Sputum Acid Fast Bacilli Smear - Final 05/06/17 13:29 Troponin I < 0.012 Impressions: Chest/Abdomen CTA 05/06/17 05:02 IMPRESSION: 1. No pulmonary embolus. 2. There is 3.6 cm left upper lobe thick-walled cavitary lesion. This could be related to infectious causes such as abscess, mycobacterial pneumonia, or fungal pneumonia. This could be related to inflammatory causes such as Elin's granulomatosis. This could be seen with neoplastic lesions of primary or secondary etiology. This exam was performed according to our departmental dose-optimization program, which includes automated exposure control, adjustment of the mA and/or kV according to patient size and/or use of iterative reconstruction technique. Fluoroscopy 05/10/17 00:00 IMPRESSION: Intra procedural imaging and fluoro Chest X-Ray 05/10/17 09:48 IMPRESSION: No pneumothorax post left lung biopsy. 3 to 4 cm cavitary mass left upper lobe stable compared to previous studies Assessment & Plan - Diagnosis (1) Cavitary lesion of lung Is this a current diagnosis for this admission?: Yes Plan: awaiting path report (2) EtOH dependence Is this a current diagnosis for this admission?: Yes Plan: No evidence of DTs (3) Left shoulder pain Qualifiers: Chronicity: chronic Qualified Code(s): M25.512 - Pain in left shoulder; G89.29 - Other chronic pain; G89.29 - Other chronic pain Is this a current diagnosis for this admission?: Yes Plan: improved (4) Tobacco dependence Is this a current diagnosis for this admission?: Yes Plan: TRANSDERMAL NICOTINE
== END 2017-05-11 16:00 | disposition home or self-care (01) | DRG 168 ==
LOC: ER 04:30 → EH 08:21 → 3N 20:45 → 4N 05-10 18:20
PROVIDERS: ADMIT Emergency Medicine; ATTEND Emergency Medicine
PROC: 0BBG8ZX Excision of Left Upper Lung Lobe, Via Natural or Artificial Opening Endoscopic, Diagnostic (ICD-10-PCS; principal; 2017-05-10 10:00)
PROC: 0B9G8ZX Drainage of Left Upper Lung Lobe, Via Natural or Artificial Opening Endoscopic, Diagnostic (ICD-10-PCS; 2017-05-10 10:00)
DX: R91.8 Other nonspecific abnormal finding of lung field (principal); I10 Essential (primary) hypertension; I73.1 Thromboangiitis obliterans [Buerger's disease]; F10.20 Alcohol dependence, uncomplicated; M25.512 Pain in left shoulder; G89.29 Other chronic pain; E83.42 Hypomagnesemia; I89.0 Lymphedema, not elsewhere classified; Z79.01 Long term (current) use of anticoagulants; Z79.899 Other long term (current) drug therapy; Z86.718 Personal history of other venous thrombosis and embolism; F17.210 Nicotine dependence, cigarettes, uncomplicated; Z88.0 Allergy status to penicillin
CPT/HCPCS: 31624; 31628; 36415; 520; 71045; 71046; 71275; 80048; 80053; 80061; 81001; 82272; 82550; 82553; 83036; 83605; 83735; 84100; 84439; 84443; 84484; 85025; 85027; 85610; 87015; 87040; 87070; 87101; 87116; 87205; 87206; 88305; 89050; 93005; 93010; 99285; J0171; J0330; J0456; J1644; J2250; J2405; J2704; J3010; J3411; J3475; J3480; J3490; J7030; J7060

== ENCOUNTER 2018-07-20 08:03 | Inpatient (IN) | payer MEDICARE ==
--- NOTE | 2018-07-20 09:28 | ER Document Report ---
ED General - General Chief Complaint: Abnormal Lab Results Stated Complaint: ABNORMAL LABS Time Seen by Provider: 07/20/18 09:00 TRAVEL OUTSIDE OF THE [place] IN LAST 30 DAYS: No - HPI Notes: Patient is a 53-year-old male that presents to the emergency department for chief complaint of anemia and chest pain. Patient was told to come the emergency room yesterday by his primary care doctor for anemia. He does have a history of anemia in the past. He denies any hemoptysis, hematemesis, or black/bloody stools. He states he did require blood transfusion the last time he was in the hospital. Patient is complaining of pain over his left chest that has been constant for the last few days. He states it is achy with periods of sharp exacerbation. He states it is worse with coughing. He denies associated fevers or chills. He does have a history of a cavitary lung lesion in his left upper lobe and states he is not on any active treatment for that currently. He states he has an appointment with Dr. Avilez, pulmonology, on October 25. He states that the lung lesion biopsies have all returned indeterminant or normal. Past Medical History: History of alcohol abuse, history of DVT, anemia, cavitary lung lesion Past Surgical History: Bronchoscopy x2, pulmonary biopsy Social History: Reviewed in chart Family History: Reviewed and noncontributory for presenting illness Allergies: Reviewed, see documented allergy list. REVIEW OF SYSTEMS: CONSTITUTIONAL : No fever No chills No diaphoresis No recent illness EENT: No vision changes No congestion No sore throat CARDIOVASCULAR: chest pain No palpitations RESPIRATORY: No shortness of breath cough No difficulty breathing GASTROINTESTINAL: No abdominal pain No nausea No vomiting No diarrhea GENITOURINARY: No dysuria No hematuria No difficulty urinating MUSCULOSKELETAL: No back pain No leg pain No arm pain SKIN: No rashes No lesions LYMPHATIC: No swollen, enlarged glands. NEUROLOGICAL: No lightheadedness No headache No weakness No paresthesias PSYCHIATRIC: No anxiety No depression PHYSICAL EXAMINATION: Vital signs reviewed, nursing noted reviewed. GENERAL: Well-appearing, well-nourished and in no acute distress. HEAD: Atraumatic, normocephalic. EYES: Eyes appear normal, extraocular movements intact, sclera anicteric, conjunctiva are pale ENT: nares patent, oropharynx clear without exudates. Moist mucous membranes. NECK: Normal range of motion, supple without lymphadenopathy LUNGS: Breath sounds diminished to auscultation bilaterally, left greater than right. No wheezes rales or rhonchi. No tachypnea or accessory muscle use HEART: Regular rate and rhythm without murmurs ABDOMEN: Soft, nontender, normoactive bowel sounds. No rebound, guarding, or rigidity. No masses appreciated. EXTREMITIES: Nontender, good range of motion, no pitting or edema. NEUROLOGICAL: No focal neurological deficits. Moves all extremities spontaneously Motor and sensory grossly intact on exam. PSYCH: Normal mood, normal affect. SKIN: Warm, Dry, normal turgor, no rashes or lesions noted on exposed skin, pale - Related Data Allergies/Adverse Reactions: Penicillins Allergy (Verified 07/20/18 08:05) Past Medical History - Social History Smoking Status: Never Smoker Family History: Hypertension, Malignancy - Mother with breast cancer - Past Medical History Cardiac Medical History: Reports: Hx Hypertension, Hx Peripheral Vascular Disease Pulmonary Medical History: Reports: Hx Pneumonia - With left upper lobe cavitation, negative AFB and bronchoscopy April 2017 Neurological Medical History: Denies: Hx Migraine, Hx Seizures Endocrine Medical History: Denies: Hx Hyperthyroidism, Hx Hypothyroidism Renal/ Medical History: Denies: Hx End Stage Renal Disease, Hx Peritoneal Dialysis Traumatic Medical History: Denies: Hx Gunshot Wound, Hx Traumatic Brain Injury Physical Exam - Vital signs Vitals: Temp Pulse Resp BP Pulse Ox 97.6 F 74 18 159/71 H 96 07/20/18 08:11 07/20/18 08:11 07/20/18 08:11 07/20/18 08:11 07/20/18 08:11 Course - Re-evaluation Re-evalutation: 07/20/18 09:27 Vitals reviewed. Nursing notes reviewed. Patient was unsure of the abnormal lab value when he presented so I did contact [facility] who informed me that he had a hemoglobin of 6.8 on blood draw Tuesday. Repeat hemoglobin will be obtained today however patient does appear pale so this is likely accurate. He has no signs of active bleeding. He is otherwise hemodynamically stable and in no acute distress. 07/20/18 10:51 Patient reevaluated and is still hemodynamically stable. He has no current complaints. His hemoglobin is 6.6 and he will be transfused 2 units packed red blood cells. Patient is also supratherapeutic on his INR greater than 6. Because of his acute anemia a dose of oral vitamin K will be given for INR reversal. Patient still has no signs of active bleeding. He does have chronic anemia however this is more significant than his baseline. Patient's chest x- ray shows a left upper lobe lesion consistent with his prior x-rays however does appear slightly enlarged. Patient has no leukocytosis or fevers. Antibiotics will be held until pulmonary consult can be obtained given the chronic nature of his lung lesion and history of biopsy in the past. Patient in agreement with admission. Case discussed with Dr. Avalos and Jodi Lutz NP who accepted admission. Laboratory 07/20/18 07/20/18 07/20/18 09:20 09:20 09:20 WBC 7.4 RBC 2.89 L Hgb 6.6 L Hct 21.3 L MCV 74 L MCH 22.8 L MCHC 31.0 L RDW 21.3 H Plt Count 378 Seg Neutrophils % 77.1 Lymphocytes % 11.3 L Monocytes % 7.4 Eosinophils % 3.8 Basophils % 0.4 Absolute Neutrophils 5.7 Absolute Lymphocytes 0.8 Absolute Monocytes 0.5 Absolute Eosinophils 0.3 Absolute Basophils 0.0 PT INR APTT Sodium 135.6 L Potassium 3.0 L* Chloride 100 Carbon Dioxide 27 Anion Gap 9 BUN 9 Creatinine 0.71 Est GFR ( Amer) > 60 Est GFR (Non-Af Amer) > 60 Glucose 82 Calcium 8.8 Total Bilirubin 0.2 Direct Bilirubin 0.1 Neonat Total Bilirubin Not Reportable Neonat Direct Bilirubin Not Reportable Neonat Indirect Bili Not Reportable AST 23 ALT 16 L Alkaline Phosphatase 97 Troponin I Total Protein 7.4 Albumin 3.3 L Blood Type A NEGATIVE Antibody Screen NEGATIVE Crossmatch See Detail 07/20/18 07/20/18 09:20 09:20 WBC RBC Hgb Hct MCV MCH MCHC RDW Plt Count Seg Neutrophils % Lymphocytes % Monocytes % Eosinophils % Basophils % Absolute Neutrophils Absolute Lymphocytes Absolute Monocytes Absolute Eosinophils Absolute Basophils PT 61.2 H* INR 6.68 H* APTT 100.8 H Sodium Potassium Chloride Carbon Dioxide Anion Gap BUN Creatinine Est GFR ( Amer) Est GFR (Non-Af Amer) Glucose Calcium Total Bilirubin Direct Bilirubin Neonat Total Bilirubin Neonat Direct Bilirubin Neonat Indirect Bili AST ALT Alkaline Phosphatase Troponin I < 0.012 Total Protein Albumin Blood Type Antibody Screen Crossmatch Chest X-Ray 07/20/18 09:20 IMPRESSION: There is increased size and conspicuity of a masslike opacity of the left upper lobe. Findings are very worrisome for malignancy although infection and inflammation are differential considerations per previously imaged cavitary lesion at this location. Recommend CT to further evaluate. - Vital Signs Vital signs: Temp Pulse Resp BP Pulse Ox 97.6 F 74 18 139/67 H 98 07/20/18 08:11 07/20/18 08:11 07/20/18 10:01 07/20/18 10:01 07/20/18 10:01 - Laboratory Result Diagrams: 07/20/18 09:20 07/20/18 09:20 Laboratory results interpreted by me: 07/20/18 07/20/18 07/20/18 09:20 09:20 09:20 RBC 2.89 L Hgb 6.6 L Hct 21.3 L MCV 74 L MCH 22.8 L MCHC 31.0 L RDW 21.3 H Lymphocytes % 11.3 L PT INR APTT Sodium 135.6 L Potassium 3.0 L* ALT 16 L Albumin 3.3 L Crossmatch See Detail 07/20/18 09:20 RBC Hgb Hct MCV MCH MCHC RDW Lymphocytes % PT 61.2 H* INR 6.68 H* APTT 100.8 H Sodium Potassium ALT Albumin Crossmatch - EKG Interpretation by Me Additional EKG results interpreted by me: 07/20/18 10:02 Interpreted by myself [id number]: Normal sinus rhythm, rate 79, PACs, first-degree AV block with LA of 212, normal axis Discharge - Discharge Clinical Impression: Supratherapeutic INR, Consolidation of left upper lobe of lung Anemia Qualifiers: Anemia type: other cause Other causes of anemia: other cause, not classified Qualified Code(s): D64.89 - Other specified anemias Condition: Stable Disposition: ADMITTED INPATIENT Admitting Provider: Hospitalist Unit Admitted: Medical Floor
[2018-07-20 09:41] LABS: ABSOLUTE EOSINOPHILS # (AUTO) 0.3 10^3/uL (0.0-0.6); ABSOLUTE LYMPHOCYTES (AUTO) 0.8 10^3/uL (0.5-4.7); ABSOLUTE MONOCYTES (AUTO) 0.5 10^3/uL (0.1-1.4); ABSOLUTE NEUT (AUTO) 5.7 10^3/uL (1.7-8.2); BASOPHILS % (AUTO) 0.4 % (0-2); EOSINOPHILS % (AUTO) 3.8 % (0-6); HEMATOCRIT 21.3 % (37.9-51.0); LYMPHOCYTES % (AUTO) 11.3 % (13-45); MEAN CORPUSCULAR HEMOGLOBIN 22.8 pg (27.0-33.4); MEAN CORPUSCULAR VOLUME 74 fl (80-97); MONOCYTES % (AUTO) 7.4 % (3-13); PLATELET COUNT 378 10^3/uL (150-450); RED BLOOD COUNT 2.89 10^6/uL (4.35-5.55); RED CELL DISTRIBUTION WIDTH 21.3 % (11.5-14.0); SEGMENTED NEUTROPHILS % (AUTO) 77.1 % (42-78); TOTAL CELLS COUNTED % (AUTO) 100 %; WHITE BLOOD COUNT 7.4 10^3/uL (4.0-10.5)
[2018-07-20 09:55] LABS: PARTIAL THROMBOPLASTIN TIME 100.8 SEC (23.5-35.8)
[2018-07-20 10:05] LABS: ALANINE AMINOTRANSFERASE 16 U/L (21-72); ALBUMIN 3.3 g/dL (3.5-5.0); ALKALINE PHOSPHATASE 97 U/L (38-126); ANION GAP 9 (5-19); ASPARTATE AMINO TRANSFERASE 23 U/L (17-59); BILIRUBIN,DIRECT 0.1 mg/dL (0.0-0.4); BILIRUBIN,TOTAL 0.2 mg/dL (0.2-1.3); BLOOD UREA NITROGEN 9 mg/dL (7-20); CALCIUM 8.8 mg/dL (8.4-10.2); CARBON DIOXIDE 27 mmol/L (22-30); CHLORIDE 100 mmol/L (98-107); GLUCOSE 82 mg/dL (75-110); SODIUM 135.6 mmol/L (137-145); TOTAL PROTEIN 7.4 g/dL (6.3-8.2)
[2018-07-20 10:09] LABS: HEMOGLOBIN 6.6 g/dL (13.5-17.0)
[2018-07-20 10:13] LABS: INTERNATIONAL RATION (INR) 6.68; PROTHROMBIN TIME 61.2 SEC (11.4-15.4)
[2018-07-20] MEDS ORDERED: NORMAL SALINE 250 ML IV PRN ×2 (10:17)
[2018-07-20] MEDS ORDERED: PHYTONADIONE 5 MG TABLET PO ONE (10:18)
[2018-07-20] MEDS ORDERED: POTASSIUM CHLORIDE 10 MEQ CAPSULE.ER PO ONE (10:18)
--- NOTE | 2018-07-20 10:49 | RADIOLOGY REPORT (SQ) ---
EXAM DESCRIPTION: CHEST SINGLE VIEW COMPLETED DATE/TIME: 07/20/2018 10:03 am REASON FOR STUDY: cough, hx of cavitary lesion COMPARISON: 12/26/2017 EXAM PARAMETERS: NUMBER OF VIEWS: One view. TECHNIQUE: Single frontal radiographic view of the chest acquired. RADIATION DOSE: NA LIMITATIONS: None. FINDINGS: LUNGS AND PLEURA: There is increased size and conspicuity of a masslike opacity of the lef t upper lobe. MEDIASTINUM AND HILAR STRUCTURES: No masses. Contour normal. HEART AND VASCULAR STRUCTURES: Heart normal in size. Normal vasculature. BONES: No acute findings. HARDWARE: None in the chest. OTHER: No other significant finding. IMPRESSION: There is increased size and conspicuity of a masslike opacity of the left upper lobe. F indings are very worrisome for malignancy although infection and inflammation are differential consid erations per previously imaged cavitary lesion at this location. Recommend CT to further evaluate. TECHNICAL DOCUMENTATION: JOB ID: [id number] [facility]- All Rights Reserved Reading location - IP/workstation name: [email or web address]
[2018-07-20] MEDS ORDERED: IPRATROPIUM/ALBUTEROL 0.5-2.5 MG/3 ML AMPUL NEB PRN (11:47)
[2018-07-20] MEDS ORDERED: ACETAMINOPHEN 325 MG TABLET PO PRN (11:47)
[2018-07-20] MEDS ORDERED: MAG HYDROX/AL HYDROX/SIMETH SUSP 30 ML UDCUP PO PRN (11:53)
[2018-07-20] MEDS ORDERED: ONDANSETRON HCL INJ/PF 4 MG/2 ML SDV IV PRN (11:53)
[2018-07-20 12:46] LABS: ABSOLUTE RETICS # 0.037 10^6/uL (0.028-0.122); RETICULOCYTE COUNT (AUTO) 1.28 % (0.66-2.85)
[2018-07-20] MEDS: PANTOPRAZOLE SODIUM 40 MG VIAL IV SCH (13:00)
[2018-07-20] MEDS: NORMAL SALINE 1000 ML 1,000 ML IV PRN (13:02)
--- NOTE | 2018-07-20 14:47 | EKG REPORT ---
SEVERITY:- ABNORMAL ECG - SINUS RHYTHM ATRIAL PREMATURE COMPLEX FIRST DEGREE AV BLOCK CONSIDER ANTEROSEPTAL INFARCT : Confirmed by: Sanam Talbot MD 20-Jul-2018 14:45:43
[2018-07-20 15:02] LABS: IRON(TIBC) 47.3 ug/dL (49-181)
--- NOTE | 2018-07-20 15:07 | RADIOLOGY REPORT (SQ) ---
EXAM DESCRIPTION: CT CHEST WITH COMPLETED DATE/TIME: 07/20/2018 2:46 pm REASON FOR STUDY: EUSEBIO cavitary mass COMPARISON: CT 12/22/2017. Chest x-ray 07/20/2018. TECHNIQUE: CT scan of the chest performed using helical scanning technique with dynamic intravenous contrast injection. Images reviewed with lung, soft tissue and bone windows. Reconstructed coronal and sagittal MPR and MIP images reviewed. All images stored on PACS. All CT scanners at this facility use dose modulation, iterative reconstruction, and/or weight based d osing when appropriate to reduce radiation dose to as low as reasonably achievable (ALARA). [facility]: Dose Right [facility]: CareDose [facility]: Dose Right [facility]: Teradose 4D [facility]: Revokom CONTRAST TYPE AND DOSE: contrast/concentration: Isovue 350.00 mg/ml; Total Contrast Delivered: 80.0 ml; Total Saline Delivered: 38.1 ml RENAL FUNCTION: BUN 9 creatinine 0.71 RADIATION DOSE: CT Rad equipment meets quality standard of care and radiation dose reduction techniq ues were employed. CTDIvol: 7.6 mGy. DLP: 318 mGy-cm. . LIMITATIONS: None. FINDINGS: LUNGS AND PLEURA: There is now a 66 x 67 mm mass in the left side of the chest. There is rib invasion. The mass is somewhat heterogeneous. There is no cavitation. HILAR AND MEDIASTINAL STRUCTURES: There is precarinal adenopathy with a node having short axis diamet er of 17 mm. HEART AND VASCULAR STRUCTURES: No aneurysm or dissection. No central pulmonary emboli. No pericardi al effusion. HARDWARE: None in the chest. UPPER ABDOMEN: Fatty liver. Cholelithiasis. THYROID AND OTHER SOFT TISSUES: No masses. No adenopathy. BONES: There is invasion of 2 ribs on the left side of the chest. No other osseous lesions are seen. OTHER: No other significant finding. IMPRESSION: 1. Left upper lobe lung mass is larger. There is chest wall invasion with involvement of two ribs. Precarinal adenopathy. 2. Fatty liver. Cholelithiasis. TECHNICAL DOCUMENTATION: JOB ID: [id number] Quality ID # [id number]: Final reports with documentation of one or more dose reduction techniques (e.g., Au tomated exposure control, adjustment of the mA and/or kV according to patient size, use of iterative reconstruction technique) 2010 [employer] All Rights Reserved Reading location - IP/workstation name: [email or web address]
[2018-07-20 16:08] LABS: FOLATE 2.48 ng/mL (>2.76)
[2018-07-20] MEDS ORDERED: LORAZEPAM INJ 2 MG/1 ML VIAL IV PRN (18:16)
[2018-07-20] MEDS: NICOTINE 21 MG/24 HR PATCH.TD24 TD SCH (19:00)
[2018-07-20] MEDS: MINERAL OIL/PETROLATUM,WHITE CREAM 114 GM TP SCH (19:00)
--- NOTE | 2018-07-20 19:01 | PDOC H&P ---
History of Present Illness Admission Date/PCP: 07/20/18 11:36 Patient complains of: abnormal labs, chest wall pain History of Present Illness: Mikael WHEATLEY JR is a 53 year old male with a past medical history significant for hypertension, left upper lobe lung mass (negative AFBs December 2017), multiple DVTs/PE, on chronic Coumadin, chronic anemia, tobacco dependence, alcohol dependence, and noncompliance who presents to the emergency department today with complaint of "abnormal labs." The patient reports that he sees his PCP every 1-3 months for routine labs (INR) and was called and instructed to report to the emergency department for abnormal labs related to Tuesday blood draw. He also reports left chest wall discomfort that has been present for several weeks to months and progressively worsening associated with chronic dyspnea. Patient has a known upper lobe mass followed by Dr. Comer (last visit March); reports he does not intend to return due to recommendations to have a "GPS bronchoscopy in [place]." Otherwise, he has no complaints. Evaluation in the ED revealed Hgb 6.6 (unknown baseline; during last admission Hgb was 9.1 at discharge), INR 6.68, hypokalemia (K 3.0), serum EtOH 42, and EUSEBIO mass noted on cXR (appeared enlarged from previous imaging). The patient was referred to the hospitalist service for admission and management of his anemia and supratherapeutic INR. Past Medical History Cardiac Medical History: Reports: Hypertension, Peripheral Vascular Disease Pulmonary Medical History: Reports: Pneumonia Neurological Medical History: Denies: Migraine, Seizures Endocrine Medical History: Denies: Diabetes Mellitus Type 2, Hypothyroidism Renal/ Medical History: Denies: Chronic Kidney Disease Malignancy Medical History: Reports: None GI Medical History: Reports: Gastroesophageal Reflux Disease Psychiatric Medical History: Reports: Alcohol Dependency, Tobacco Dependency Traumatic Medical History: Denies: Gunshot Wound, Traumatic Brain Injury Hematology: Reports: Anemia Denies: Bleeding Tendencies Social History Information Source: Patient Lives with: Spouse/Significant other Smoking Status: Current Every Day Smoker Cigarettes Packs Per Day: 1.5 Number of Years Smokin Frequency of Alcohol Use: Heavy Hx Recreational Drug Use: No Drugs: None Hx Prescription Drug Abuse: No - Advance Directive Resuscitation Status: Full Code Family History Family History: Hypertension, Malignancy - Mother with breast cancer Parental Family History Reviewed: Yes Children Family History Reviewed: Yes Sibling(s) Family History Reviewed.: Yes Medication/Allergy Home Medications: Lisinopril/Hydrochlorothiazide [Lisinopril-Hctz 20-25 mg Tab] 1 each PO DAILY 12/22/17 Warfarin Sodium 4 mg PO DAILY 07/20/18 Allergies/Adverse Reactions: Penicillins Allergy (Verified 07/20/18 08:05) Review of Systems Constitutional: ABSENT: chills, fever(s), headache(s), weight gain, weight loss Eyes: ABSENT: visual disturbances Ears: ABSENT: hearing changes Cardiovascular: ABSENT: chest pain, dyspnea on exertion, edema, orthropnea, palpitations Respiratory: PRESENT: dyspnea, other - left chest wall pain. ABSENT: cough, hemoptysis Gastrointestinal: ABSENT: abdominal pain, constipation, diarrhea, hematemesis, hematochezia, nausea, vomiting Genitourinary: ABSENT: dysuria, hematuria Musculoskeletal: ABSENT: joint swelling Integumentary: ABSENT: rash, wounds Neurological: ABSENT: abnormal gait, abnormal speech, confusion, dizziness, focal weakness, syncope Psychiatric: ABSENT: anxiety, depression, homidical ideation, suicidal ideation Endocrine: ABSENT: cold intolerance, heat intolerance, polydipsia, polyuria Hematologic/Lymphatic: ABSENT: easy bleeding, easy bruising Physical Exam Vital Signs: Temp Pulse Resp BP Pulse Ox 97.5 F 86 18 168/75 H 100 07/20/18 17:14 07/20/18 17:14 07/20/18 17:14 07/20/18 17:14 07/20/18 17:14 Intake & Output 07/19/18 07/20/18 07/21/18 06:59 06:59 06:59 Intake Total 600 Balance 600 Weight 72.8 kg General appearance: PRESENT: no acute distress, disheveled, well-developed Head exam: PRESENT: atraumatic, normocephalic Eye exam: PRESENT: conjunctiva pale, EOMI, PERRLA. ABSENT: scleral icterus Ear exam: PRESENT: normal external ear exam Mouth exam: PRESENT: moist, tongue midline Teeth exam: PRESENT: poor dentation Neck exam: ABSENT: carotid bruit, JVD, lymphadenopathy, thyromegaly Respiratory exam: PRESENT: clear to auscultation joe, decreased breath sounds - left, symmetrical, unlabored. ABSENT: rales, rhonchi, wheezes Cardiovascular exam: PRESENT: irregular rhythm. ABSENT: diastolic murmur, rubs, systolic murmur Pulses: PRESENT: normal dorsalis pedis pul Vascular exam: PRESENT: pallor GI/Abdominal exam: PRESENT: normal bowel sounds, soft. ABSENT: distended, guarding, mass, organolmegaly, rebound, tenderness Rectal exam: PRESENT: deferred Extremities exam: PRESENT: full ROM, +2 edema - pitting edema BLE. ABSENT: calf tenderness, clubbing, pedal edema Neurological exam: PRESENT: alert, awake, oriented to person, oriented to place, oriented to time, oriented to situation, CN II-XII grossly intact. ABSENT: motor sensory deficit Psychiatric exam: PRESENT: appropriate affect, normal mood. ABSENT: homicidal ideation, suicidal ideation Skin exam: PRESENT: dry, intact, warm, other - chronic venous stasis changes BLE. ABSENT: cyanosis, rash Results Laboratory Results: 07/20/18 09:20 07/20/18 09:20 07/20/18 07/20/18 07/20/18 09:20 09:20 09:20 WBC 7.4 RBC 2.89 L Hgb 6.6 L Hct 21.3 L MCV 74 L MCH 22.8 L MCHC 31.0 L RDW 21.3 H Plt Count 378 Seg Neutrophils % 77.1 Lymphocytes % 11.3 L Monocytes % 7.4 Eosinophils % 3.8 Basophils % 0.4 Absolute Neutrophils 5.7 Absolute Lymphocytes 0.8 Absolute Monocytes 0.5 Absolute Eosinophils 0.3 Absolute Basophils 0.0 Retic Count (auto) Absolute Retic Sodium 135.6 L Potassium 3.0 L* Chloride 100 Carbon Dioxide 27 Anion Gap 9 BUN 9 Creatinine 0.71 Est GFR ( Amer) > 60 Est GFR (Non-Af Amer) > 60 Glucose 82 Calcium 8.8 Iron TIBC % Saturation Ferritin Total Bilirubin 0.2 AST 23 ALT 16 L Alkaline Phosphatase 97 Total Protein 7.4 Albumin 3.3 L Vitamin B12 Folate Blood Type A NEGATIVE Antibody Screen NEGATIVE 07/20/18 07/20/18 07/20/18 09:20 09:20 14:18 WBC RBC Hgb Hct MCV MCH MCHC RDW Plt Count Seg Neutrophils % Lymphocytes % Monocytes % Eosinophils % Basophils % Absolute Neutrophils Absolute Lymphocytes Absolute Monocytes Absolute Eosinophils Absolute Basophils Retic Count (auto) 1.28 Absolute Retic 0.037 Sodium Potassium Chloride Carbon Dioxide Anion Gap BUN Creatinine Est GFR ( Amer) Est GFR (Non-Af Amer) Glucose Calcium Iron Cancelled 47.3 L TIBC Cancelled 380 % Saturation Cancelled 12 Ferritin Cancelled 15.20 L Total Bilirubin AST ALT Alkaline Phosphatase Total Protein Albumin Vitamin B12 Cancelled 418.0 Folate Cancelled 2.48 L Blood Type Antibody Screen 07/20/18 09:20 Troponin I < 0.012 Impressions: Chest CT 07/20/18 00:00 IMPRESSION: 1. Left upper lobe lung mass is larger. There is chest wall invasion with involvement of two ribs. Precarinal adenopathy. 2. Fatty liver. Cholelithiasis. Chest X-Ray 07/20/18 09:20 IMPRESSION: There is increased size and conspicuity of a masslike opacity of the left upper lobe. Findings are very worrisome for malignancy although infection and inflammation are differential considerations per previously imaged cavitary lesion at this location. Recommend CT to further evaluate. Assessment and Plan - Diagnosis (1) Anemia Qualifiers: Anemia type: iron deficiency Iron deficiency anemia type: unspecified iron deficiency Qualified Code(s): D50.9 - Iron deficiency anemia, unspecified Is this a current diagnosis for this admission?: Yes Plan: Patient was admitted with hemoglobin 6.6; unknown baseline. At discharge (December 2017) hemoglobin was 9.1. Patient denies active bleeding, hemoptysis, melena, [place] [facility]. He does continue to have heavy EtOH dependence; likely component of nutritional deficiency. Now s/p 2 units PRBC. Has received Vit K for elevated INR. Gentle IVF; banana bag nightly. We will monitor serial CBCs and transfuse for Hgb <8.0 (2) Supratherapeutic INR Is this a current diagnosis for this admission?: Yes Plan: Secondary to chronic Coumadin use and EtOH. During the last admission, it was decided that the patient was not safe to be discharged on Coumadin. He was recommended to transition to Xarelto. Patient reports that he never filled his Xarelto due to limited health insurance. He reports that he has his INR checked every 1-3 months. INR 6.68 Has received Vit K. s/p 2 units PRBC Gentle IVF Holding Coumadin. Hematology is consulted (pt reports multiple DVT/PEs; ?underlying coagulopathy); would appreciate assistance in evaluating safer anticoagulation options. Monitor daily PT/INR. (3) EtOH dependence Is this a current diagnosis for this admission?: Yes Plan: Patient with chronic heavy EtOH dependence. He denies history of withdrawal/seizure. Banana bag nightly. Scheduled p.o. Valium. As needed Ativan for anxiety/agitation/withdrawal symptoms. Fall, seizure, aspiration precautions. (4) Lung mass Is this a current diagnosis for this admission?: Yes Plan: Patient with known left upper lobe mass; during his last admission December 2017 he was evaluated with bronchoscopy (negative for malignancy) and TB was ruled out with serial sputum AFBs. Patient reports that he has been following with pulmonology; was recommended to go to [place] for specialized bronchoscopy procedure which he has declined to do. He does continue to smoke. Chest x-ray shows a left upper lobe mass which is lower from previous imaging. Recommended CT follow-up. Contrasted chest CT shows left upper lobe lung mass with chest wall invasion of 2 ribs with precarinal adenopathy. Pulmonology and oncology are consulted. (5) Tobacco dependence Is this a current diagnosis for this admission?: Yes Plan: Smoking cessation is encouraged; nicotine replacement therapies are provided. - Time Time Spent with patient: 35 or more minutes Medications reviewed and adjusted accordingly: Yes Anticipated discharge: Home - Inpatient Certification Based on my medical assessment, after consideration of the patient's comorbidities, presenting symptoms, or acuity I expect that the services needed warrant INPATIENT care.: Yes I certify that my determination is in accordance with my understanding of Medicare's requirements for reasonable and necessary INPATIENT services [42 CFR 412.3e].: Yes Medical Necessity: Need Close Monitoring Due to Risk of Patient Decompensation, Risk of Complication if Not Cared For in Hospital, Risk of Diagnosis Which Will Require Inpatient Eval/Care/Monitoring
[2018-07-20 19:47] LABS: HEMATOCRIT 26.6 % (37.9-51.0); HEMOGLOBIN 8.6 g/dL (13.5-17.0); MEAN CORPUSCULAR HEMOGLOBIN 23.9 pg (27.0-33.4); MEAN CORPUSCULAR HGB CONC 32.4 g/dL (32.0-36.0); MEAN CORPUSCULAR VOLUME 74 fl (80-97); PLATELET COUNT 357 10^3/uL (150-450); RED CELL DISTRIBUTION WIDTH 22.8 % (11.5-14.0); WHITE BLOOD COUNT 9.3 10^3/uL (4.0-10.5)
[2018-07-20 20:14] LABS: ANION GAP 10 (5-19); BLOOD UREA NITROGEN 11 mg/dL (7-20); CARBON DIOXIDE 25 mmol/L (22-30); CHLORIDE 98 mmol/L (98-107); GLUCOSE 137 mg/dL (75-110); POTASSIUM 3.7 mmol/L (3.6-5.0); SODIUM 132.8 mmol/L (137-145)
[2018-07-20] MEDS: MAGNESIUM SULFATE 1 GM/D5W 100 ML IV SCH ×2 (22:15→23:24)
[2018-07-20] MEDS: NORMAL SALINE 1000 ML 1,000 ML with POTASSIUM CHLORIDE 20 MEQ, MAGNESIUM SULFATE 8 MEQ,... IV SCH ×5 (22:16)
[2018-07-20] MEDS: DIAZEPAM 5 MG TABLET PO SCH (23:24)
[2018-07-21 01:52] LABS: ABSOLUTE BASOPHILS # (AUTO) 0.1 10^3/uL (0.0-0.2); ABSOLUTE EOSINOPHILS # (AUTO) 0.2 10^3/uL (0.0-0.6); ABSOLUTE LYMPHOCYTES (AUTO) 1.2 10^3/uL (0.5-4.7); ABSOLUTE MONOCYTES (AUTO) 0.7 10^3/uL (0.1-1.4); BASOPHILS % (AUTO) 1.1 % (0-2); EOSINOPHILS % (AUTO) 2.6 % (0-6); LYMPHOCYTES % (AUTO) 14.2 % (13-45); MEAN CORPUSCULAR HEMOGLOBIN 24.2 pg (27.0-33.4); MEAN CORPUSCULAR HGB CONC 32.5 g/dL (32.0-36.0); MEAN CORPUSCULAR VOLUME 75 fl (80-97); MONOCYTES % (AUTO) 8.1 % (3-13); PLATELET COUNT 274 10^3/uL (150-450); RED BLOOD COUNT 3.09 10^6/uL (4.35-5.55); RED CELL DISTRIBUTION WIDTH 22.2 % (11.5-14.0); TOTAL CELLS COUNTED % (AUTO) 100 %; WHITE BLOOD COUNT 8.2 10^3/uL (4.0-10.5)
[2018-07-21 01:53] LABS: HEMOGLOBIN 7.5 g/dL (13.5-17.0)
[2018-07-21] MEDS: DIAZEPAM 5 MG TABLET PO SCH ×4 (05:28→23:00)
[2018-07-21 06:27] LABS: APPEARANCE,URINE CLEAR; BILIRUBIN,URINE NEGATIVE (NEGATIVE); COLOR,URINE YELLOW; GLUCOSE, URINE NEGATIVE (NEGATIVE); KETONES,URINE NEGATIVE (NEGATIVE); LEUKOCYTE ESTERASE,URINE NEGATIVE (NEGATIVE); NITRITE,URINE NEGATIVE (NEGATIVE); PROTEIN,URINE 100 mg/dL (NEGATIVE); URINE SPECIFIC GRAVITY 1.036; UROBILINOGEN,URINE NEGATIVE mg/dL (<2.0)
[2018-07-21 08:23] LABS: HEMATOCRIT 23.2 % (37.9-51.0); MEAN CORPUSCULAR HGB CONC 31.6 g/dL (32.0-36.0); MEAN CORPUSCULAR VOLUME 76 fl (80-97); PLATELET COUNT 279 10^3/uL (150-450); RED BLOOD COUNT 3.06 10^6/uL (4.35-5.55); RED CELL DISTRIBUTION WIDTH 21.3 % (11.5-14.0); WHITE BLOOD COUNT 7.8 10^3/uL (4.0-10.5)
[2018-07-21 08:26] LABS: HEMOGLOBIN 7.3 g/dL (13.5-17.0)
[2018-07-21] MEDS ORDERED: MAGNESIUM HYDROXIDE SUSP 30 ML UDCUP PO ONE (08:29)
[2018-07-21] MEDS: NORMAL SALINE 1000 ML 1,000 ML IV PRN (08:33)
[2018-07-21 08:34] LABS: INTERNATIONAL RATION (INR) 2.19
--- NOTE | 2018-07-21 08:45 | PDOC CONSULTATION ---
Consultation Consult Date: 07/21/18 Attending physician:: SANCHEZ ROSSI Consult reason:: Left lung mass History of Present Illness Admission Date/PCP: 07/20/18 11:36 History of Present Illness: Mikael WHEATLEY JR is a 53 year old male with known history of a left lung mass. He originally presented in April of last year with a 3.3 cm left lung mass. Unfortunately, he has transportation to get to local office visits but does not have any family support to be able to get to subspecialist visits out of town. So that is been a limiting factor for him. At that time he had a bronchoscopy by Dr. Avilez that was nondiagnostic, he then presented in December of last year with supratherapeutic INR and once again a lung mass was noted and this time it was up to 4.[address] Comer attempted bronchoscopy, but once again it was nondiagnostic. He then did have follow-up couple times with Dr. Comer, who set him up for a navigational bronchoscopy in [place] but unfortunately the patient did not have transportation to get there. He presented here with increasing left-sided chest pain, over the last 2 months it has been worsening in a faster pace. INR was 6.6, hemoglobin was in the 6 range, he was transfused 2 units and dropped again thereafter. His INR still supratherapeutic today. Of note he is on 10-year history of warfarin because he has had recurrent bilateral DVT and PE. He is on lifelong anticoagulation. Of note he does have a [id number] history of tobacco and continues to smoke. He also has heavy EtOH history in the past, was up to almost 1/5 a day 5-6 years ago but currently only drinks 3-4 shots per day. Last drink was about 48 hours ago. However on 2 previous prolonged admissions he did not drink at all and did not have any withdrawal. Past Medical History Cardiac Medical History: Reports: Hypertension, Peripheral Vascular Disease Pulmonary Medical History: Reports: Pneumonia Neurological Medical History: Denies: Migraine, Seizures Endocrine Medical History: Denies: Diabetes Mellitus Type 2, Hyperthyroidism, Hypothyroidism Renal/ Medical History: Denies: Chronic Kidney Disease, End Stage Renal Disease Malignancy Medical History: Reports: None GI Medical History: Reports: Gastroesophageal Reflux Disease Psychiatric Medical History: Reports: Alcohol Dependency, Tobacco Dependency Traumatic Medical History: Denies: Gunshot Wound, Traumatic Brain Injury Hematology: Reports: Anemia Denies: Bleeding Tendencies Past Surgical History Past Surgical History: Reports: Other - Bronchoscopy x2 Social History Lives with: Spouse/Significant other Smoking Status: Current Every Day Smoker Cigarettes Packs Per Day: 1.5 Number of Years Smokin Frequency of Alcohol Use: Heavy Amount of Alcoholic Beverages Per Day: 4 Hx Recreational Drug Use: No Drugs: None Hx Prescription Drug Abuse: No - Advance Directive Resuscitation Status: Full Code Family History Family History: Hypertension, Malignancy - Mother with breast cancer Parental Family History Reviewed: Yes Children Family History Reviewed: Yes Sibling(s) Family History Reviewed.: Yes Medication/Allergy Home Medications: Lisinopril/Hydrochlorothiazide [Lisinopril-Hctz 20-25 mg Tab] 1 each PO DAILY 12/22/17 Warfarin Sodium 4 mg PO DAILY 07/20/18 Allergies/Adverse Reactions: Penicillins Allergy (Verified 07/20/18 08:05) Review of Systems Constitutional: ABSENT: chills, fever(s), headache(s), weight gain, weight loss Eyes: ABSENT: visual disturbances Ears: ABSENT: hearing changes Cardiovascular: ABSENT: chest pain, dyspnea on exertion, edema, orthropnea, palpitations Respiratory: ABSENT: cough, hemoptysis Gastrointestinal: ABSENT: abdominal pain, constipation, diarrhea, hematemesis, hematochezia, nausea, vomiting Genitourinary: ABSENT: dysuria, hematuria Musculoskeletal: ABSENT: joint swelling Integumentary: ABSENT: rash, wounds Neurological: ABSENT: abnormal gait, abnormal speech, confusion, dizziness, focal weakness, syncope Psychiatric: ABSENT: anxiety, depression, homidical ideation, suicidal ideation Endocrine: ABSENT: cold intolerance, heat intolerance, polydipsia, polyuria Hematologic/Lymphatic: ABSENT: easy bleeding, easy bruising Physical Exam Vital Signs: Temp Pulse Resp BP Pulse Ox 98.0 F 91 16 143/84 H 97 07/21/18 00:02 07/21/18 02:00 07/21/18 00:02 07/21/18 00:02 07/21/18 00:02 Intake & Output 07/20/18 07/21/18 07/22/18 06:59 06:59 06:59 Intake Total 2066 Output Total 500 Balance 1566 Weight 72.4 kg General appearance: PRESENT: no acute distress, well-developed, well-nourished Head exam: PRESENT: atraumatic, normocephalic Eye exam: PRESENT: conjunctiva pink, EOMI, PERRLA. ABSENT: scleral icterus Ear exam: PRESENT: normal external ear exam Mouth exam: PRESENT: moist, tongue midline Neck exam: ABSENT: carotid bruit, JVD, lymphadenopathy, thyromegaly Respiratory exam: PRESENT: clear to auscultation joe. ABSENT: rales, rhonchi, wheezes Cardiovascular exam: PRESENT: RRR. ABSENT: diastolic murmur, rubs, systolic murmur Pulses: PRESENT: normal dorsalis pedis pul Vascular exam: PRESENT: normal capillary refill GI/Abdominal exam: PRESENT: normal bowel sounds, soft. ABSENT: distended, guarding, mass, organolmegaly, rebound, tenderness Rectal exam: PRESENT: deferred Extremities exam: PRESENT: full ROM. ABSENT: calf tenderness, clubbing, pedal edema Neurological exam: PRESENT: alert, awake, oriented to person, oriented to place, oriented to time, oriented to situation, CN II-XII grossly intact. ABSENT: motor sensory deficit Psychiatric exam: PRESENT: appropriate affect, normal mood. ABSENT: homicidal ideation, suicidal ideation Skin exam: PRESENT: dry, intact, warm. ABSENT: cyanosis, rash Results Laboratory Results: 07/21/18 07:30 07/20/18 07/20/18 07/20/18 09:20 09:20 09:20 WBC 7.4 RBC 2.89 L Hgb 6.6 L Hct 21.3 L MCV 74 L MCH 22.8 L MCHC 31.0 L RDW 21.3 H Plt Count 378 Seg Neutrophils % 77.1 Lymphocytes % 11.3 L Monocytes % 7.4 Eosinophils % 3.8 Basophils % 0.4 Absolute Neutrophils 5.7 Absolute Lymphocytes 0.8 Absolute Monocytes 0.5 Absolute Eosinophils 0.3 Absolute Basophils 0.0 Retic Count (auto) Absolute Retic Sodium 135.6 L Potassium 3.0 L* Chloride 100 Carbon Dioxide 27 Anion Gap 9 BUN 9 Creatinine 0.71 Est GFR ( Amer) > 60 Est GFR (Non-Af Amer) > 60 Glucose 82 Calcium 8.8 Magnesium Iron TIBC % Saturation Ferritin Total Bilirubin 0.2 AST 23 ALT 16 L Alkaline Phosphatase 97 Total Protein 7.4 Albumin 3.3 L Vitamin B12 Folate Urine Color Urine Appearance Urine pH Ur Specific [place] Urine Protein Urine Glucose (UA) Urine Ketones Urine Blood Urine Nitrite Ur Leukocyte Esterase Urine WBC (Auto) Urine RBC (Auto) Blood Type A NEGATIVE Antibody Screen NEGATIVE 07/20/18 07/20/18 07/20/18 09:20 09:20 14:18 WBC RBC Hgb Hct MCV MCH MCHC RDW Plt Count Seg Neutrophils % Lymphocytes % Monocytes % Eosinophils % Basophils % Absolute Neutrophils Absolute Lymphocytes Absolute Monocytes Absolute Eosinophils Absolute Basophils Retic Count (auto) 1.28 Absolute Retic 0.037 Sodium Potassium Chloride Carbon Dioxide Anion Gap BUN Creatinine Est GFR ( Amer) Est GFR (Non-Af Amer) Glucose Calcium Magnesium Iron Cancelled 47.3 L TIBC Cancelled 380 % Saturation Cancelled 12 Ferritin Cancelled 15.20 L Total Bilirubin AST ALT Alkaline Phosphatase Total Protein Albumin Vitamin B12 Cancelled 418.0 Folate Cancelled 2.48 L Urine Color Urine Appearance Urine pH Ur Specific [place] Urine Protein Urine Glucose (UA) Urine Ketones Urine Blood Urine Nitrite Ur Leukocyte Esterase Urine WBC (Auto) Urine RBC (Auto) Blood Type Antibody Screen 07/20/18 07/20/18 07/20/18 19:31 19:31 19:31 WBC 9.3 RBC 3.60 L Hgb 8.6 L Hct 26.6 L MCV 74 L MCH 23.9 L MCHC 32.4 RDW 22.8 H Plt Count 357 Seg Neutrophils % Lymphocytes % Monocytes % Eosinophils % Basophils % Absolute Neutrophils Absolute Lymphocytes Absolute Monocytes Absolute Eosinophils Absolute Basophils Retic Count (auto) Absolute Retic Sodium 132.8 L Potassium 3.7 Chloride 98 Carbon Dioxide 25 Anion Gap 10 BUN 11 Creatinine 0.93 Est GFR ( Amer) > 60 Est GFR (Non-Af Amer) > 60 Glucose 137 H Calcium 9.0 Magnesium 1.2 L* Iron TIBC % Saturation Ferritin Total Bilirubin AST ALT Alkaline Phosphatase Total Protein Albumin Vitamin B12 Folate Urine Color Urine Appearance Urine pH Ur Specific [place] Urine Protein Urine Glucose (UA) Urine Ketones Urine Blood Urine Nitrite Ur Leukocyte Esterase Urine WBC (Auto) Urine RBC (Auto) Blood Type Antibody Screen 07/21/18 07/21/18 07/21/18 01:14 05:30 07:30 WBC 8.2 7.8 RBC 3.09 L 3.06 L Hgb 7.5 L 7.3 L Hct 23.0 L 23.2 L MCV 75 L 76 L MCH 24.2 L 24.0 L MCHC 32.5 31.6 L RDW 22.2 H 21.3 H Plt Count 274 279 Seg Neutrophils % 74.0 Lymphocytes % 14.2 Monocytes % 8.1 Eosinophils % 2.6 Basophils % 1.1 Absolute Neutrophils 6.0 Absolute Lymphocytes 1.2 Absolute Monocytes 0.7 Absolute Eosinophils 0.2 Absolute Basophils 0.1 Retic Count (auto) Absolute Retic Sodium Potassium Chloride Carbon Dioxide Anion Gap BUN Creatinine Est GFR ( Amer) Est GFR (Non-Af Amer) Glucose Calcium Magnesium Iron TIBC % Saturation Ferritin Total Bilirubin AST ALT Alkaline Phosphatase Total Protein Albumin Vitamin B12 Folate Urine Color YELLOW Urine Appearance CLEAR Urine pH 6.0 Ur Specific [place] 1.036 Urine Protein 100 H Urine Glucose (UA) NEGATIVE Urine Ketones NEGATIVE Urine Blood MODERATE H Urine Nitrite NEGATIVE Ur Leukocyte Esterase NEGATIVE Urine WBC (Auto) 1 Urine RBC (Auto) 25 Blood Type Antibody Screen 07/20/18 09:20 Troponin I < 0.012 Impressions: Chest CT 07/20/18 00:00 IMPRESSION: 1. Left upper lobe lung mass is larger. There is chest wall invasion with involvement of two ribs. Precarinal adenopathy. 2. Fatty liver. Cholelithiasis. Chest X-Ray 07/20/18 09:20 IMPRESSION: There is increased size and conspicuity of a masslike opacity of the left upper lobe. Findings are very worrisome for malignancy although infection and inflammation are differential considerations per previously imaged cavitary lesion at this location. Recommend CT to further evaluate. Status: Image reviewed by me Assessment & Plan - Diagnosis (1) Cavitary lesion of lung Is this a current diagnosis for this admission?: Yes Plan: Growing consolidation in the left lung overall worrisome for primary lung cancer. Discussed with radiology, CT-guided biopsy is possible. Plan for CT- guided biopsy to be done probably on Tuesday hopefully the INR will be under 1.5 by then. Otherwise we will have to wait until it gets done. At this point I would not discharge him without getting a biopsy done. (2) Anemia Qualifiers: Anemia type: iron deficiency Iron deficiency anemia type: chronic blood loss Qualified Code(s): D50.0 - Iron deficiency anemia secondary to blood loss (chronic) Is this a current diagnosis for this admission?: Yes Plan: Probably blood loss somewhere, on previous admission he had Hemoccult positive. Warfarin is not the right drug from unfortunately because I believe his vitamin K intake is not appropriate, especially with the malignancy ongoing and probably poor nutrition because of that. His ferritin was only 12 plan for IV iron x2, hold on transfusion for today but if it drops into the 6 range I will give him another 1-2 units. (3) History of DVT of lower extremity Is this a current diagnosis for this admission?: Yes Plan: Supratherapeutic INR, holding warfarin, but ultimately L get him on Xarelto. The cost was an issue before but will try and mitigate that issue for him. (4) Supratherapeutic INR Is this a current diagnosis for this admission?: Yes Plan: Holding warfarin, asked hospitalist to put a small dose of vitamin K on. Hopefully, that is not on back ordered we have some in-house. Would like to use oral vitamin K if possible. (5) EtOH dependence Qualifiers: Substance use status: uncomplicated Qualified Code(s): F10.20 - Alcohol dependence, uncomplicated Is this a current diagnosis for this admission?: Yes Plan: He does have EtOH use, but did not have withdrawal on last few hospital stay so hopefully that will not happen but we will need to watch closely. - Time Time Spent: Greater than 70 Minutes - Inpatient Certification Based on my medical assessment, after consideration of the patient's comorbidities, presenting symptoms, or acuity I expect that the services needed warrant INPATIENT care.: Yes I certify that my determination is in accordance with my understanding of Medicare's requirements for reasonable and necessary INPATIENT services [42 CFR 412.3e].: Yes Medical Necessity: Need for Surgery, Risk of Complication if Not Cared For in Hospital
[2018-07-21 09:07] LABS: ANION GAP 8 (5-19); BLOOD UREA NITROGEN 9 mg/dL (7-20); CALCIUM 8.5 mg/dL (8.4-10.2); CARBON DIOXIDE 25 mmol/L (22-30); CHLORIDE 103 mmol/L (98-107); GLUCOSE 92 mg/dL (75-110); POTASSIUM 3.8 mmol/L (3.6-5.0); SODIUM 136.2 mmol/L (137-145)
[2018-07-21 09:33] LABS: PROTHROMBIN TIME 25.4 SEC (11.4-15.4)
[2018-07-21] MEDS ORDERED: HYDRALAZINE HCL INJ/PF 20 MG/1 ML SDV IV PRN (09:37)
[2018-07-21] MEDS ORDERED: (PENDING PHARMACY ID) (Lisinopril/Hydrochlorothiazide [Lisinopril-Hctz 20-25 Mg Tab] 1 EAC PO SCH (10:00)
[2018-07-21] MEDS: FERUMOXYTOL (NON-ESRD) 510 MG/NS 100 ML IV SCH ×2 (10:33)
[2018-07-21] MEDS: LISINOPRIL 10 MG TABLET PO SCH (10:34)
[2018-07-21] MEDS: MINERAL OIL/PETROLATUM,WHITE CREAM 114 GM TP SCH ×2 (10:34→17:00)
[2018-07-21] MEDS: HYDROCHLOROTHIAZIDE 25 MG TABLET PO SCH (10:34)
[2018-07-21] MEDS: NICOTINE 21 MG/24 HR PATCH.TD24 TD SCH (10:34)
[2018-07-21] MEDS: DOCUSATE SODIUM 100 MG CAPSULE PO SCH (10:34)
[2018-07-21] MEDS: PANTOPRAZOLE SODIUM 40 MG VIAL IV SCH (10:39)
[2018-07-21] MEDS ORDERED: PHYTONADIONE 5 MG TABLET PO ONE (12:00)
--- NOTE | 2018-07-21 17:44 | PDOC PROGRESS REPORT ---
Subjective Progress Note for:: 07/21/18 Subjective:: Mikael WHEATLEY JR is a 53 year old male with a past medical history significant for hypertension, left upper lobe lung mass (negative AFBs December 2017), multiple DVTs/PE, on chronic Coumadin, chronic anemia, tobacco dependence, alcohol dependence, and noncompliance who was admitted 07/20/2018 for supratherapeutic INR and anemia. Patient seen on morning rounds. He is found resting in bed comfortably on room air. He reports that he is feeling well today and his only complaint is his left chest wall pain that worsens with movement and deep breath. He reports that his pain is well controlled at present. He is appreciative of having met with Dr. Chavez this morning and is looking forward to seeing Dr. Avilez today as well. He denies gross hematuria, hemoptysis, melena and hematochezia. He is reminded that he needs to provide a stool sample today so that we can rule out GI bleeding. He denies fever, chills, cardiac chest pain symptoms, palpitations, dyspnea, orthopnea, abdominal pain, nausea vomiting and diarrhea. He has no new questions or concerns. No concerns per nursing. Reason For Visit: ANEMIA,SUPRATHERAPEUTIC INR, LUNG MASS Physical Exam Vital Signs: Temp Pulse Resp BP Pulse Ox 97.4 F 85 18 154/83 H 100 07/21/18 16:00 07/21/18 16:00 07/21/18 16:00 07/21/18 16:00 07/21/18 16:00 Intake & Output 07/20/18 07/21/18 07/22/18 06:59 06:59 06:59 Intake Total 2066 1123 Output Total 500 288 Balance 1566 835 Weight 72.4 kg 72.4 kg General appearance: PRESENT: no acute distress, well-developed, well-nourished Head exam: PRESENT: atraumatic, normocephalic Eye exam: PRESENT: conjunctiva pale, EOMI, PERRLA. ABSENT: scleral icterus Mouth exam: PRESENT: moist, tongue midline Teeth exam: PRESENT: poor dentation Neck exam: ABSENT: carotid bruit, JVD, lymphadenopathy, thyromegaly Respiratory exam: PRESENT: clear to auscultation joe, decreased breath sounds - Left, symmetrical, unlabored. ABSENT: rales, rhonchi, wheezes Cardiovascular exam: PRESENT: RRR, +S1, +S2. ABSENT: diastolic murmur, rubs, systolic murmur Pulses: PRESENT: normal dorsalis pedis pul Vascular exam: PRESENT: normal capillary refill GI/Abdominal exam: PRESENT: normal bowel sounds, soft. ABSENT: distended, guarding, mass, organolmegaly, rebound, tenderness Rectal exam: PRESENT: deferred Extremities exam: PRESENT: full ROM. ABSENT: calf tenderness, clubbing, pedal edema Neurological exam: PRESENT: alert, awake, oriented to person, oriented to place, oriented to time, oriented to situation, CN II-XII grossly intact. ABSENT: motor sensory deficit Psychiatric exam: PRESENT: appropriate affect, normal mood. ABSENT: homicidal ideation, suicidal ideation Skin exam: PRESENT: dry, intact, warm, other - Chronic venous stasis changes BLE. ABSENT: cyanosis, rash Results Laboratory Results: 07/21/18 07:30 07/21/18 07:30 07/20/18 07/20/18 07/20/18 19:31 19:31 19:31 WBC 9.3 RBC 3.60 L Hgb 8.6 L Hct 26.6 L MCV 74 L MCH 23.9 L MCHC 32.4 RDW 22.8 H Plt Count 357 Seg Neutrophils % Lymphocytes % Monocytes % Eosinophils % Basophils % Absolute Neutrophils Absolute Lymphocytes Absolute Monocytes Absolute Eosinophils Absolute Basophils Sodium 132.8 L Potassium 3.7 Chloride 98 Carbon Dioxide 25 Anion Gap 10 BUN 11 Creatinine 0.93 Est GFR ( Amer) > 60 Est GFR (Non-Af Amer) > 60 Glucose 137 H Calcium 9.0 Magnesium 1.2 L* Urine Color Urine Appearance Urine pH Ur Specific [place] Urine Protein Urine Glucose (UA) Urine Ketones Urine Blood Urine Nitrite Ur Leukocyte Esterase Urine WBC (Auto) Urine RBC (Auto) Stool Occult Blood 07/21/18 07/21/18 07/21/18 01:14 05:30 07:30 WBC 8.2 7.8 RBC 3.09 L 3.06 L Hgb 7.5 L 7.3 L Hct 23.0 L 23.2 L MCV 75 L 76 L MCH 24.2 L 24.0 L MCHC 32.5 31.6 L RDW 22.2 H 21.3 H Plt Count 274 279 Seg Neutrophils % 74.0 Lymphocytes % 14.2 Monocytes % 8.1 Eosinophils % 2.6 Basophils % 1.1 Absolute Neutrophils 6.0 Absolute Lymphocytes 1.2 Absolute Monocytes 0.7 Absolute Eosinophils 0.2 Absolute Basophils 0.1 Sodium Potassium Chloride Carbon Dioxide Anion Gap BUN Creatinine Est GFR ( Amer) Est GFR (Non-Af Amer) Glucose Calcium Magnesium Urine Color YELLOW Urine Appearance CLEAR Urine pH 6.0 Ur Specific [place] 1.036 Urine Protein 100 H Urine Glucose (UA) NEGATIVE Urine Ketones NEGATIVE Urine Blood MODERATE H Urine Nitrite NEGATIVE Ur Leukocyte Esterase NEGATIVE Urine WBC (Auto) 1 Urine RBC (Auto) 25 Stool Occult Blood 07/21/18 07/21/18 07:30 12:32 WBC RBC Hgb Hct MCV MCH MCHC RDW Plt Count Seg Neutrophils % Lymphocytes % Monocytes % Eosinophils % Basophils % Absolute Neutrophils Absolute Lymphocytes Absolute Monocytes Absolute Eosinophils Absolute Basophils Sodium 136.2 L Potassium 3.8 Chloride 103 Carbon Dioxide 25 Anion Gap 8 BUN 9 Creatinine 0.74 Est GFR ( Amer) > 60 Est GFR (Non-Af Amer) > 60 Glucose 92 Calcium 8.5 Magnesium Urine Color Urine Appearance Urine pH Ur Specific [place] Urine Protein Urine Glucose (UA) Urine Ketones Urine Blood Urine Nitrite Ur Leukocyte Esterase Urine WBC (Auto) Urine RBC (Auto) Stool Occult Blood NEGATIVE 07/20/18 09:20 Troponin I < 0.012 Impressions: Chest CT 07/20/18 00:00 IMPRESSION: 1. Left upper lobe lung mass is larger. There is chest wall invasion with involvement of two ribs. Precarinal adenopathy. 2. Fatty liver. Cholelithiasis. Chest X-Ray 07/20/18 09:20 IMPRESSION: There is increased size and conspicuity of a masslike opacity of the left upper lobe. Findings are very worrisome for malignancy although infection and inflammation are differential considerations per previously imaged cavitary lesion at this location. Recommend CT to further evaluate. Assessment and Plan - Diagnosis (1) Anemia Qualifiers: Anemia type: iron deficiency Iron deficiency anemia type: chronic blood loss Qualified Code(s): D50.0 - Iron deficiency anemia secondary to blood loss (chronic) Is this a current diagnosis for this admission?: Yes Plan: Patient was admitted with hemoglobin 6.6; unknown baseline. At discharge (December 2017) hemoglobin was 9.1. Patient denies active bleeding, hematuria, hemoptysis, melena, hematochezia. He does continue to have heavy EtOH dependence; likely component of nutritional deficiency. Anemia panel revealed low iron (47.3) and low ferritin (15.20), and low folate (2.48). Now s/p 2 units PRBC. Hgb 6.6-> 8.6-> 7.5-> 7.3. He appears asymptomatic (normotensive, nml HR) Has received p.o. Vit K for elevated INR; improved today. Gentle IVF; banana bag nightly. Hematology is consulted; spoke with Dr. Chavez. Plans for IV iron infusion today and possible repeat transfusion tomorrow. We will monitor serial CBCs and transfuse for Hgb <7.0 (per discussion with Dr. Chavez). (2) Supratherapeutic INR Is this a current diagnosis for this admission?: Yes Plan: Improved; INR 6.68-> 2.19 Secondary to chronic Coumadin use and EtOH. During the last admission, it was decided that the patient was not safe to be discharged on Coumadin. He was recommended to transition to Xarelto. Patient reports that he never filled his Xarelto due to limited health insurance. He reports that he has his INR checked every 1-3 months. Has received p.o. Vit K 5 mg yesterday; repeat 2.5 mg today per discussion with Dr. Chavez. s/p 2 units PRBC Gentle IVF Holding Coumadin. Hematology is consulted (pt reports multiple DVT/PEs; ?underlying coagulopathy); would appreciate assistance in evaluating safer anticoagulation options. Monitor daily PT/INR. (3) EtOH dependence Qualifiers: Substance use status: uncomplicated Qualified Code(s): F10.20 - Alcohol dependence, uncomplicated Is this a current diagnosis for this admission?: Yes Plan: Patient with chronic heavy EtOH dependence. He denies history of withdrawal/seizure. Banana bag nightly. Scheduled p.o. Valium; dose decreased slightly due to lethargy. As needed Ativan for anxiety/agitation/withdrawal symptoms. Fall, seizure, aspiration precautions. (4) Lung mass Is this a current diagnosis for this admission?: Yes Plan: Patient with known left upper lobe mass; during his last admission December 2017 he was evaluated with bronchoscopy (negative for malignancy) and TB was ruled out with serial sputum AFBs. Patient reports that he has been following with pulmonology; was recommended to go to [place] for specialized bronchoscopy procedure which he has declined to do. He does continue to smoke. Chest x-ray shows a left upper lobe mass which is lower from previous imaging. Recommended CT follow-up. Contrasted chest CT shows left upper lobe lung mass with chest wall invasion of 2 ribs with precarinal adenopathy. Pulmonology and oncology are consulted. Dr. Chavez is planning for CT Guided needle biopsy once INR is acceptable. (5) Tobacco dependence Is this a current diagnosis for this admission?: Yes Plan: Smoking cessation is encouraged; nicotine replacement therapies are provided. (6) Hypokalemia Is this a current diagnosis for this admission?: Yes Plan: Replete. (7) Hypomagnesemia Is this a current diagnosis for this admission?: Yes Plan: Replaced; will follow labs and continue to replace as necessary. - Time Time Spent with patient: 25-34 minutes Medications reviewed and adjusted accordingly: Yes Anticipated discharge: Home
[2018-07-21] MEDS: NORMAL SALINE 1000 ML 1,000 ML with POTASSIUM CHLORIDE 20 MEQ, MAGNESIUM SULFATE 8 MEQ,... IV SCH ×5 (22:55)
[2018-07-22] MEDS: DIAZEPAM 5 MG TABLET PO SCH ×4 (05:57→23:30)
[2018-07-22 08:02] LABS: BLOOD UREA NITROGEN 7 mg/dL (7-20); CALCIUM 8.4 mg/dL (8.4-10.2); GLUCOSE 85 mg/dL (75-110); POTASSIUM 3.4 mmol/L (3.6-5.0)
[2018-07-22 08:05] LABS: INTERNATIONAL RATION (INR) 1.31; PROTHROMBIN TIME 16.9 SEC (11.4-15.4)
[2018-07-22 08:07] LABS: CARBON DIOXIDE 27 mmol/L (22-30); CHLORIDE 103 mmol/L (98-107); SODIUM 134.3 mmol/L (137-145)
[2018-07-22 08:11] LABS: ANION GAP 4 (5-19)
[2018-07-22 08:38] LABS: HEMATOCRIT 21.1 % (37.9-51.0); MEAN CORPUSCULAR HEMOGLOBIN 24.2 pg (27.0-33.4); MEAN CORPUSCULAR HGB CONC 32.2 g/dL (32.0-36.0); MEAN CORPUSCULAR VOLUME 75 fl (80-97); PLATELET COUNT 229 10^3/uL (150-450); RED BLOOD COUNT 2.79 10^6/uL (4.35-5.55); RED CELL DISTRIBUTION WIDTH 22.8 % (11.5-14.0); WHITE BLOOD COUNT 8.3 10^3/uL (4.0-10.5)
[2018-07-22 08:43] LABS: HEMOGLOBIN 6.8 g/dL (13.5-17.0)
[2018-07-22] MEDS ORDERED: NORMAL SALINE 250 ML IV PRN ×2 (08:57)
[2018-07-22] MEDS: DOCUSATE SODIUM 100 MG CAPSULE PO SCH (09:24)
[2018-07-22] MEDS: HYDROCHLOROTHIAZIDE 25 MG TABLET PO SCH (09:33)
[2018-07-22] MEDS: NICOTINE 21 MG/24 HR PATCH.TD24 TD SCH (09:34)
[2018-07-22] MEDS: LISINOPRIL 10 MG TABLET PO SCH (09:34)
[2018-07-22] MEDS: PANTOPRAZOLE SODIUM 40 MG VIAL IV SCH (09:34)
[2018-07-22] MEDS: MINERAL OIL/PETROLATUM,WHITE CREAM 114 GM TP SCH ×2 (09:38→17:31)
--- NOTE | 2018-07-22 12:36 | PDOC PROGRESS REPORT ---
Subjective Progress Note for:: 07/22/18 Subjective:: Mikael WHEATLEY JR is a 53 year old male with a past medical history significant for hypertension, left upper lobe lung mass (negative AFBs December 2017), multiple DVTs/PE, on chronic Coumadin, chronic anemia, tobacco dependence, alcohol dependence, and noncompliance who was admitted 07/20/2018 for supratherapeutic INR and anemia. Patient seen on morning rounds. He is found resting in bed comfortably on room air. He was sleeping when I entered the room but woke easily when I said his name. His only complaint is his left chest wall pain that worsens with movement and deep breath. He reports that his pain is well controlled at present. He denies gross hematuria, hemoptysis, melena and hematochezia. He denies fever, chills, cardiac chest pain symptoms, palpitations, dyspnea, orthopnea, abdominal pain, nausea vomiting and diarrhea. He has no new questions or concerns. No concerns per nursing. Reason For Visit: ANEMIA,SUPRATHERAPEUTIC INR, LUNG MASS Physical Exam Vital Signs: Temp Pulse Resp BP Pulse Ox 98.0 F 81 20 143/73 H 99 07/22/18 11:15 07/22/18 11:15 07/22/18 11:15 07/22/18 11:15 07/22/18 11:15 Intake & Output 07/21/18 07/22/18 07/23/18 06:59 06:59 06:59 Intake Total 2066 2273 1023 Output Total 500 288 Balance 1566 1985 1023 Weight 72.4 kg 75.9 kg General appearance: PRESENT: no acute distress, disheveled - Poor hygiene/body order, well-developed, well-nourished Head exam: PRESENT: atraumatic, normocephalic Eye exam: PRESENT: conjunctiva pink, EOMI, PERRLA. ABSENT: scleral icterus Mouth exam: PRESENT: moist, tongue midline Teeth exam: PRESENT: poor dentation Neck exam: ABSENT: carotid bruit, JVD, lymphadenopathy, thyromegaly Respiratory exam: PRESENT: clear to auscultation joe, symmetrical, unlabored. ABSENT: rales, rhonchi, wheezes Cardiovascular exam: PRESENT: RRR, +S1, +S2. ABSENT: diastolic murmur, rubs, systolic murmur Vascular exam: PRESENT: normal capillary refill GI/Abdominal exam: PRESENT: normal bowel sounds, soft. ABSENT: distended, guarding, mass, organolmegaly, rebound, tenderness Rectal exam: PRESENT: deferred Extremities exam: PRESENT: full ROM. ABSENT: calf tenderness, clubbing, pedal edema Neurological exam: PRESENT: alert, awake, oriented to person, oriented to place, oriented to time, oriented to situation, CN II-XII grossly intact, other - Tremulous hands. ABSENT: motor sensory deficit Psychiatric exam: PRESENT: normal mood, unusual affect. ABSENT: homicidal ideation, suicidal ideation Skin exam: PRESENT: dry, intact, warm. ABSENT: cyanosis, rash Results Laboratory Results: 07/22/18 07:18 07/22/18 07:18 07/20/18 07/21/18 07/22/18 09:20 12:32 07:18 WBC RBC Hgb Hct MCV MCH MCHC RDW Plt Count Sodium 134.3 L Potassium 3.4 L Chloride 103 Carbon Dioxide 27 Anion Gap 4 L BUN 7 Creatinine 0.66 Est GFR ( Amer) > 60 Est GFR (Non-Af Amer) > 60 Glucose 85 Calcium 8.4 Magnesium 1.9 Stool Occult Blood NEGATIVE Blood Type A NEGATIVE Antibody Screen NEGATIVE 07/22/18 07:18 WBC 8.3 RBC 2.79 L Hgb 6.8 L Hct 21.1 L MCV 75 L MCH 24.2 L MCHC 32.2 RDW 22.8 H Plt Count 229 Sodium Potassium Chloride Carbon Dioxide Anion Gap BUN Creatinine Est GFR ( Amer) Est GFR (Non-Af Amer) Glucose Calcium Magnesium Stool Occult Blood Blood Type Antibody Screen 07/20/18 09:20 Troponin I < 0.012 Impressions: Chest CT 07/20/18 00:00 IMPRESSION: 1. Left upper lobe lung mass is larger. There is chest wall invasion with involvement of two ribs. Precarinal adenopathy. 2. Fatty liver. Cholelithiasis. Chest X-Ray 07/20/18 09:20 IMPRESSION: There is increased size and conspicuity of a masslike opacity of the left upper lobe. Findings are very worrisome for malignancy although infection and inflammation are differential considerations per previously imaged cavitary lesion at this location. Recommend CT to further evaluate. Assessment and Plan - Diagnosis (1) Anemia Qualifiers: Anemia type: iron deficiency Iron deficiency anemia type: chronic blood loss Qualified Code(s): D50.0 - Iron deficiency anemia secondary to blood loss (chronic) Is this a current diagnosis for this admission?: Yes Plan: Patient was admitted with hemoglobin 6.6; unknown baseline. At discharge (December 2017) hemoglobin was 9.1. Patient denies active bleeding, hematuria, hemoptysis, melena, hematochezia. He does continue to have heavy EtOH dependence; likely component of nutritional deficiency. Anemia panel revealed low iron (47.3) and low ferritin (15.20), and low folate (2.48). Now s/p 2 units PRBC. Hgb 6.6-> 8.6-> 7.5-> 7.3-> 6.8. He appears asymptomatic (normotensive, nml HR) Occult stool is negative. Supratherapeutic INR has resolved. Gentle IVF; banana bag nightly. Hematology is consulted; spoke with Dr. Chavez. Has received 1 of 2 iron infusions. Transfuse an additional 1 unit PRBC today for hemoglobin 6.8. We will monitor serial CBCs and transfuse for Hgb <7.0 (per discussion with Dr. Chavez). (2) Supratherapeutic INR Is this a current diagnosis for this admission?: Yes Plan: Resolved; INR 6.68-> 2.19-> 1.31 Secondary to chronic Coumadin use and EtOH. During the last admission, it was decided that the patient was not safe to be discharged on Coumadin. He was recommended to transition to Xarelto. Patient reports that he never filled his Xarelto due to limited health insurance. He reports that he has his INR checked every 1-3 months. Has received p.o. Vit K x2 doses s/p 2 units PRBC; additional unit planned today. Gentle IVF Holding Coumadin. Hematology is consulted (pt reports multiple DVT/PEs; ?underlying coagulopathy); would appreciate assistance in evaluating safer anticoagulation options. Monitor daily PT/INR. (3) EtOH dependence Qualifiers: Substance use status: uncomplicated Qualified Code(s): F10.20 - Alcohol dependence, uncomplicated Is this a current diagnosis for this admission?: Yes Plan: Patient with chronic heavy EtOH dependence. He denies history of withdrawal/seizure. Some evidence of early withdrawal today; patient was tremulous. Banana bag nightly. Scheduled p.o. Valium As needed Ativan for anxiety/agitation/withdrawal symptoms. Fall, seizure, aspiration precautions. (4) Lung mass Is this a current diagnosis for this admission?: Yes Plan: Patient with known left upper lobe mass; during his last admission December 2017 he was evaluated with bronchoscopy (negative for malignancy) and TB was ruled out with serial sputum AFBs. Patient reports that he has been following with pulmonology; was recommended to go to [place] for specialized bronchoscopy procedure which he has declined to do. He does continue to smoke. Chest x-ray shows a left upper lobe mass which is lower from previous imaging. Recommended CT follow-up. Contrasted chest CT shows left upper lobe lung mass with chest wall invasion of 2 ribs with precarinal adenopathy. Pulmonology and oncology are consulted. Dr. Chavez is planning for CT Guided needle biopsy once INR is acceptable; possibly Tuesday. (5) Tobacco dependence Is this a current diagnosis for this admission?: Yes Plan: Smoking cessation is encouraged; nicotine replacement therapies are provided. (6) Hypokalemia Is this a current diagnosis for this admission?: Yes Plan: Replete. We will monitor with daily chemistries and replace as necessary. (7) Hypomagnesemia Is this a current diagnosis for this admission?: Yes Plan: Replete. - Time Time Spent with patient: 15-24 minutes Medications reviewed and adjusted accordingly: Yes Anticipated discharge: Home
--- NOTE | 2018-07-22 12:40 | PDOC PROGRESS REPORT ---
Subjective Progress Note for:: 07/22/18 Subjective:: Patient feeling okay today, hemoglobin is dropped so transfusion ongoing now. INR is down to 1.3. Reason For Visit: ANEMIA,SUPRATHERAPEUTIC INR, LUNG MASS Physical Exam Vital Signs: Temp Pulse Resp BP Pulse Ox 98.0 F 81 20 143/73 H 99 07/22/18 11:15 07/22/18 11:15 07/22/18 11:15 07/22/18 11:15 07/22/18 11:15 Intake & Output 07/21/18 07/22/18 07/23/18 06:59 06:59 06:59 Intake Total 2066 2273 1023 Output Total 500 288 Balance 1566 1985 1023 Weight 72.4 kg 75.9 kg General appearance: PRESENT: no acute distress, well-developed, well-nourished Head exam: PRESENT: atraumatic, normocephalic Eye exam: PRESENT: conjunctiva pink, EOMI, PERRLA. ABSENT: scleral icterus Ear exam: PRESENT: normal external ear exam Mouth exam: PRESENT: moist, tongue midline Neck exam: ABSENT: carotid bruit, JVD, lymphadenopathy, thyromegaly Respiratory exam: PRESENT: clear to auscultation joe. ABSENT: rales, rhonchi, wheezes Cardiovascular exam: PRESENT: RRR. ABSENT: diastolic murmur, rubs, systolic murmur Pulses: PRESENT: normal dorsalis pedis pul Vascular exam: PRESENT: normal capillary refill GI/Abdominal exam: PRESENT: normal bowel sounds, soft. ABSENT: distended, guarding, mass, organolmegaly, rebound, tenderness Rectal exam: PRESENT: deferred Extremities exam: PRESENT: full ROM. ABSENT: calf tenderness, clubbing, pedal edema Neurological exam: PRESENT: alert, awake, oriented to person, oriented to place, oriented to time, oriented to situation, CN II-XII grossly intact. ABSENT: motor sensory deficit Psychiatric exam: PRESENT: appropriate affect, normal mood. ABSENT: homicidal ideation, suicidal ideation Skin exam: PRESENT: dry, intact, warm. ABSENT: cyanosis, rash Results Laboratory Results: 07/22/18 07:18 07/22/18 07:18 07/20/18 07/21/18 07/22/18 09:20 12:32 07:18 WBC RBC Hgb Hct MCV MCH MCHC RDW Plt Count Sodium 134.3 L Potassium 3.4 L Chloride 103 Carbon Dioxide 27 Anion Gap 4 L BUN 7 Creatinine 0.66 Est GFR ( Amer) > 60 Est GFR (Non-Af Amer) > 60 Glucose 85 Calcium 8.4 Magnesium 1.9 Stool Occult Blood NEGATIVE Blood Type A NEGATIVE Antibody Screen NEGATIVE 07/22/18 07:18 WBC 8.3 RBC 2.79 L Hgb 6.8 L Hct 21.1 L MCV 75 L MCH 24.2 L MCHC 32.2 RDW 22.8 H Plt Count 229 Sodium Potassium Chloride Carbon Dioxide Anion Gap BUN Creatinine Est GFR ( Amer) Est GFR (Non-Af Amer) Glucose Calcium Magnesium Stool Occult Blood Blood Type Antibody Screen 07/20/18 09:20 Troponin I < 0.012 Impressions: Chest CT 07/20/18 00:00 IMPRESSION: 1. Left upper lobe lung mass is larger. There is chest wall invasion with involvement of two ribs. Precarinal adenopathy. 2. Fatty liver. Cholelithiasis. Chest X-Ray 07/20/18 09:20 IMPRESSION: There is increased size and conspicuity of a masslike opacity of the left upper lobe. Findings are very worrisome for malignancy although infection and inflammation are differential considerations per previously imaged cavitary lesion at this location. Recommend CT to further evaluate. Assessment & Plan - Diagnosis (1) Cavitary lesion of lung Is this a current diagnosis for this admission?: Yes Plan: Plan for CT-guided biopsy on Tuesday, INR is now appropriate for procedure (2) Anemia Qualifiers: Anemia type: iron deficiency Iron deficiency anemia type: chronic blood loss Qualified Code(s): D50.0 - Iron deficiency anemia secondary to blood loss (chronic) Is this a current diagnosis for this admission?: Yes Plan: Status post transfusion again, awaiting repeat CBCs. (3) History of DVT of lower extremity Is this a current diagnosis for this admission?: Yes Plan: Holding anticoagulation for procedure, ultimately will switch over to Xarelto (4) Supratherapeutic INR Is this a current diagnosis for this admission?: Yes Plan: Resolved now, monitor (5) EtOH dependence Qualifiers: Substance use status: uncomplicated Qualified Code(s): F10.20 - Alcohol dependence, uncomplicated Is this a current diagnosis for this admission?: Yes Plan: No evidence of withdrawal as of yet - Time Time Spent with patient: 35 or more minutes - Inpatient Certification Based on my medical assessment, after consideration of the patient's comorbidities, presenting symptoms, or acuity I expect that the services needed warrant INPATIENT care.: Yes I certify that my determination is in accordance with my understanding of Medicare's requirements for reasonable and necessary INPATIENT services [42 CFR 412.3e].: Yes Medical Necessity: Need for Surgery, Risk of Complication if Not Cared For in Hospital
[2018-07-22] MEDS: FOLIC ACID 1 MG TABLET PO SCH (14:21)
[2018-07-22 16:29] LABS: ABSOLUTE BASOPHILS # (AUTO) 0.1 10^3/uL (0.0-0.2); ABSOLUTE EOSINOPHILS # (AUTO) 0.2 10^3/uL (0.0-0.6); ABSOLUTE MONOCYTES (AUTO) 0.8 10^3/uL (0.1-1.4); ABSOLUTE NEUT (AUTO) 7.7 10^3/uL (1.7-8.2); BASOPHILS % (AUTO) 1.2 % (0-2); EOSINOPHILS % (AUTO) 2.5 % (0-6); HEMATOCRIT 24.1 % (37.9-51.0); LYMPHOCYTES % (AUTO) 9.9 % (13-45); MEAN CORPUSCULAR HEMOGLOBIN 24.4 pg (27.0-33.4); MEAN CORPUSCULAR HGB CONC 31.9 g/dL (32.0-36.0); MEAN CORPUSCULAR VOLUME 77 fl (80-97); MONOCYTES % (AUTO) 7.7 % (3-13); PLATELET COUNT 259 10^3/uL (150-450); RED BLOOD COUNT 3.15 10^6/uL (4.35-5.55); RED CELL DISTRIBUTION WIDTH 21.5 % (11.5-14.0); SEGMENTED NEUTROPHILS % (AUTO) 78.7 % (42-78); TOTAL CELLS COUNTED % (AUTO) 100 %; WHITE BLOOD COUNT 9.7 10^3/uL (4.0-10.5)
[2018-07-22 16:30] LABS: HEMOGLOBIN 7.7 g/dL (13.5-17.0)
[2018-07-22 20:10] LABS: MEAN CORPUSCULAR HEMOGLOBIN 24.5 pg (27.0-33.4); MEAN CORPUSCULAR HGB CONC 32.2 g/dL (32.0-36.0); MEAN CORPUSCULAR VOLUME 76 fl (80-97); PLATELET COUNT 261 10^3/uL (150-450); RED BLOOD COUNT 3.28 10^6/uL (4.35-5.55); RED CELL DISTRIBUTION WIDTH 21.6 % (11.5-14.0); WHITE BLOOD COUNT 9.6 10^3/uL (4.0-10.5)
[2018-07-22] MEDS: NORMAL SALINE 1000 ML 1,000 ML with POTASSIUM CHLORIDE 20 MEQ, MAGNESIUM SULFATE 8 MEQ,... IV SCH ×5 (21:57)
[2018-07-23] MEDS: DIAZEPAM 5 MG TABLET PO SCH ×4 (05:19→23:42)
[2018-07-23 07:41] LABS: PROTHROMBIN TIME 14.8 SEC (11.4-15.4)
[2018-07-23 07:48] LABS: HEMATOCRIT 24.9 % (37.9-51.0); MEAN CORPUSCULAR HEMOGLOBIN 24.1 pg (27.0-33.4); MEAN CORPUSCULAR HGB CONC 31.7 g/dL (32.0-36.0); MEAN CORPUSCULAR VOLUME 76 fl (80-97); PLATELET COUNT 234 10^3/uL (150-450); RED BLOOD COUNT 3.28 10^6/uL (4.35-5.55); RED CELL DISTRIBUTION WIDTH 21.8 % (11.5-14.0); WHITE BLOOD COUNT 7.6 10^3/uL (4.0-10.5)
[2018-07-23 07:49] LABS: HEMOGLOBIN 7.9 g/dL (13.5-17.0)
[2018-07-23 07:54] LABS: ANION GAP 8 (5-19); BLOOD UREA NITROGEN 7 mg/dL (7-20); CALCIUM 8.7 mg/dL (8.4-10.2); CARBON DIOXIDE 26 mmol/L (22-30); CHLORIDE 100 mmol/L (98-107); GLUCOSE 84 mg/dL (75-110); POTASSIUM 3.6 mmol/L (3.6-5.0); SODIUM 133.8 mmol/L (137-145)
[2018-07-23] MEDS: HYDROCHLOROTHIAZIDE 25 MG TABLET PO SCH (10:32)
[2018-07-23] MEDS: NICOTINE 21 MG/24 HR PATCH.TD24 TD SCH (10:32)
[2018-07-23] MEDS: LISINOPRIL 10 MG TABLET PO SCH (10:32)
[2018-07-23] MEDS: FERUMOXYTOL (NON-ESRD) 510 MG/NS 100 ML IV SCH ×2 (10:32)
[2018-07-23] MEDS: FOLIC ACID 1 MG TABLET PO SCH (10:32)
[2018-07-23] MEDS: MINERAL OIL/PETROLATUM,WHITE CREAM 114 GM TP SCH ×2 (10:43→17:27)
[2018-07-23] MEDS: DOCUSATE SODIUM 100 MG CAPSULE PO SCH (10:43)
[2018-07-23] MEDS: PANTOPRAZOLE SODIUM 40 MG VIAL IV SCH (11:27)
--- NOTE | 2018-07-23 13:37 | PDOC PROGRESS REPORT ---
Subjective Progress Note for:: 07/23/18 Subjective:: Patient did well post transfusion hemoglobin is in the 7 range now. Reason For Visit: ANEMIA,SUPRATHERAPEUTIC INR, LUNG MASS Physical Exam Vital Signs: Temp Pulse Resp BP Pulse Ox 98.8 F 89 18 179/88 H 100 07/23/18 07:44 07/23/18 07:44 07/23/18 07:44 07/23/18 07:44 07/23/18 07:44 Intake & Output 07/22/18 07/23/18 07/24/18 06:59 06:59 06:59 Intake Total 2273 2198 1123 Output Total 288 Balance 1985 2198 1123 Weight 75.9 kg 79.8 kg General appearance: PRESENT: no acute distress, well-developed, well-nourished Head exam: PRESENT: atraumatic, normocephalic Eye exam: PRESENT: conjunctiva pink, EOMI, PERRLA. ABSENT: scleral icterus Ear exam: PRESENT: normal external ear exam Mouth exam: PRESENT: moist, tongue midline Neck exam: ABSENT: carotid bruit, JVD, lymphadenopathy, thyromegaly Respiratory exam: PRESENT: clear to auscultation joe. ABSENT: rales, rhonchi, wheezes Cardiovascular exam: PRESENT: RRR. ABSENT: diastolic murmur, rubs, systolic murmur Pulses: PRESENT: normal dorsalis pedis pul Vascular exam: PRESENT: normal capillary refill GI/Abdominal exam: PRESENT: normal bowel sounds, soft. ABSENT: distended, guarding, mass, organolmegaly, rebound, tenderness Rectal exam: PRESENT: deferred Extremities exam: PRESENT: full ROM. ABSENT: calf tenderness, clubbing, pedal edema Neurological exam: PRESENT: alert, awake, oriented to person, oriented to place, oriented to time, oriented to situation, CN II-XII grossly intact. ABSENT: motor sensory deficit Psychiatric exam: PRESENT: appropriate affect, normal mood. ABSENT: homicidal ideation, suicidal ideation Skin exam: PRESENT: dry, intact, warm. ABSENT: cyanosis, rash Results Laboratory Results: 07/23/18 06:56 07/23/18 06:56 07/22/18 07/22/18 07/23/18 16:08 20:03 06:56 WBC 9.7 9.6 7.6 RBC 3.15 L 3.28 L 3.28 L Hgb 7.7 L 8.0 L 7.9 L Hct 24.1 L 25.0 L 24.9 L MCV 77 L 76 L 76 L MCH 24.4 L 24.5 L 24.1 L MCHC 31.9 L 32.2 31.7 L RDW 21.5 H 21.6 H 21.8 H Plt Count 259 261 234 Seg Neutrophils % 78.7 H Lymphocytes % 9.9 L Monocytes % 7.7 Eosinophils % 2.5 Basophils % 1.2 Absolute Neutrophils 7.7 Absolute Lymphocytes 1.0 Absolute Monocytes 0.8 Absolute Eosinophils 0.2 Absolute Basophils 0.1 Sodium Potassium Chloride Carbon Dioxide Anion Gap BUN Creatinine Est GFR ( Amer) Est GFR (Non-Af Amer) Glucose Calcium 07/23/18 06:56 WBC RBC Hgb Hct MCV MCH MCHC RDW Plt Count Seg Neutrophils % Lymphocytes % Monocytes % Eosinophils % Basophils % Absolute Neutrophils Absolute Lymphocytes Absolute Monocytes Absolute Eosinophils Absolute Basophils Sodium 133.8 L Potassium 3.6 Chloride 100 Carbon Dioxide 26 Anion Gap 8 BUN 7 Creatinine 0.73 Est GFR ( Amer) > 60 Est GFR (Non-Af Amer) > 60 Glucose 84 Calcium 8.7 07/20/18 09:20 Troponin I < 0.012 Impressions: Chest CT 07/20/18 00:00 IMPRESSION: 1. Left upper lobe lung mass is larger. There is chest wall invasion with involvement of two ribs. Precarinal adenopathy. 2. Fatty liver. Cholelithiasis. Chest X-Ray 07/20/18 09:20 IMPRESSION: There is increased size and conspicuity of a masslike opacity of the left upper lobe. Findings are very worrisome for malignancy although infection and inflammation are differential considerations per previously imaged cavitary lesion at this location. Recommend CT to further evaluate. Assessment & Plan - Diagnosis (1) Cavitary lesion of lung Is this a current diagnosis for this admission?: Yes Plan: Hopeful biopsy by tomorrow, INR is in appropriate range now. (2) Anemia Qualifiers: Anemia type: iron deficiency Iron deficiency anemia type: chronic blood loss Qualified Code(s): D50.0 - Iron deficiency anemia secondary to blood loss (chronic) Is this a current diagnosis for this admission?: Yes Plan: Will watch closely, will probably need another transfusion prior to discharge. (3) History of DVT of lower extremity Is this a current diagnosis for this admission?: Yes Plan: Holding all anticoagulation until biopsy is completed, thereafter we will need to initiate Xarelto. (4) Supratherapeutic INR Is this a current diagnosis for this admission?: Yes Plan: Resolved (5) EtOH dependence Qualifiers: Substance use status: uncomplicated Qualified Code(s): F10.20 - Alcohol dependence, uncomplicated Is this a current diagnosis for this admission?: Yes Plan: Doing well
--- NOTE | 2018-07-23 13:57 | PDOC PROGRESS REPORT ---
Subjective Progress Note for:: 07/23/18 Subjective:: Mikael WHEATLEY JR is a 53 year old male with a past medical history significant for hypertension, left upper lobe lung mass (negative AFBs December 2017), multiple DVTs/PE, on chronic Coumadin, chronic anemia, tobacco dependence, alcohol dependence, and noncompliance who was admitted 07/20/2018 for supratherapeutic INR and anemia. Patient seen on morning rounds. He is found sitting up to the edge of the bed comfortably on room air. He reports continued left chest wall pain that worsens with movement and deep breath. He is reminded that he has prn toradol which he has not been using. He denies gross hematuria, hemoptysis, melena and hematochezia. He denies fever, chills, cardiac chest pain symptoms, palpitations, dyspnea, orthopnea, abdominal pain, nausea vomiting and diarrhea. He has no new questions or concerns. No concerns per nursing. Reason For Visit: ANEMIA,SUPRATHERAPEUTIC INR, LUNG MASS Physical Exam Vital Signs: Temp Pulse Resp BP Pulse Ox 98.8 F 89 18 179/88 H 100 07/23/18 07:44 07/23/18 07:44 07/23/18 07:44 07/23/18 07:44 07/23/18 07:44 Intake & Output 07/22/18 07/23/18 07/24/18 06:59 06:59 06:59 Intake Total 2273 2198 1123 Output Total 288 Balance 1985 2198 1123 Weight 75.9 kg 79.8 kg General appearance: PRESENT: no acute distress, disheveled - Poor hygiene/body order, well-developed, well-nourished Head exam: PRESENT: atraumatic, normocephalic Eye exam: PRESENT: conjunctiva pink, EOMI, PERRLA. ABSENT: scleral icterus Ear exam: PRESENT: normal external ear exam Mouth exam: PRESENT: moist, tongue midline Neck exam: ABSENT: carotid bruit, JVD, lymphadenopathy, thyromegaly Respiratory exam: PRESENT: clear to auscultation joe, decreased breath sounds - decreased on left, symmetrical, unlabored. ABSENT: rales, rhonchi, wheezes Cardiovascular exam: PRESENT: RRR. ABSENT: diastolic murmur, rubs, systolic murmur Pulses: PRESENT: normal dorsalis pedis pul Vascular exam: PRESENT: normal capillary refill Rectal exam: PRESENT: deferred Extremities exam: PRESENT: full ROM, +2 edema - BLE; slightly worse on Left. ABSENT: calf tenderness, clubbing, pedal edema Neurological exam: PRESENT: alert, awake, oriented to person, oriented to place, oriented to time, oriented to situation, CN II-XII grossly intact. ABSENT: motor sensory deficit Psychiatric exam: PRESENT: appropriate affect, normal mood. ABSENT: homicidal ideation, suicidal ideation Skin exam: PRESENT: dry, intact, warm, other - chronic venous stasis changes BLE. ABSENT: cyanosis, rash Results Laboratory Results: 07/23/18 06:56 07/23/18 06:56 07/22/18 07/22/18 07/23/18 16:08 20:03 06:56 WBC 9.7 9.6 7.6 RBC 3.15 L 3.28 L 3.28 L Hgb 7.7 L 8.0 L 7.9 L Hct 24.1 L 25.0 L 24.9 L MCV 77 L 76 L 76 L MCH 24.4 L 24.5 L 24.1 L MCHC 31.9 L 32.2 31.7 L RDW 21.5 H 21.6 H 21.8 H Plt Count 259 261 234 Seg Neutrophils % 78.7 H Lymphocytes % 9.9 L Monocytes % 7.7 Eosinophils % 2.5 Basophils % 1.2 Absolute Neutrophils 7.7 Absolute Lymphocytes 1.0 Absolute Monocytes 0.8 Absolute Eosinophils 0.2 Absolute Basophils 0.1 Sodium Potassium Chloride Carbon Dioxide Anion Gap BUN Creatinine Est GFR ( Amer) Est GFR (Non-Af Amer) Glucose Calcium 07/23/18 06:56 WBC RBC Hgb Hct MCV MCH MCHC RDW Plt Count Seg Neutrophils % Lymphocytes % Monocytes % Eosinophils % Basophils % Absolute Neutrophils Absolute Lymphocytes Absolute Monocytes Absolute Eosinophils Absolute Basophils Sodium 133.8 L Potassium 3.6 Chloride 100 Carbon Dioxide 26 Anion Gap 8 BUN 7 Creatinine 0.73 Est GFR ( Amer) > 60 Est GFR (Non-Af Amer) > 60 Glucose 84 Calcium 8.7 07/20/18 09:20 Troponin I < 0.012 Impressions: Chest CT 07/20/18 00:00 IMPRESSION: 1. Left upper lobe lung mass is larger. There is chest wall inv asion with involvement of two ribs. Precarinal adenopathy. 2. Fatty liver. Cholelithiasis. Chest X-Ray 07/20/18 09:20 IMPRESSION: There is increased size and conspicuity of a masslike opacity of the left upper lobe. Findings are very worrisome for malignancy although infection and inflammation are differential considerations per previously imaged cavitary lesion at this location. Recommend CT to further evaluate. Assessment and Plan - Diagnosis (1) Anemia Qualifiers: Anemia type: iron deficiency Iron deficiency anemia type: chronic blood loss Qualified Code(s): D50.0 - Iron deficiency anemia secondary to blood loss (chronic) Is this a current diagnosis for this admission?: Yes Plan: Patient was admitted with hemoglobin 6.6; unknown baseline. At discharge (December 2017) hemoglobin was 9.1. Patient denies active bleeding, hematuria, hemoptysis, melena, hematochezia. He does continue to have heavy EtOH dependence; likely component of nutritional deficiency. Anemia panel revealed low iron (47.3) and low ferritin (15.20), and low folate (2.48). Now s/p 3 units PRBC. Hgb 6.6-> 8.6-> 7.5-> 7.3-> 6.8-> 7.7-> 8.0-> 7.9. He appears asymptomatic (normotensive, nml HR) Occult stool is negative. Supratherapeutic INR has resolved. Banana bag nightly. Hematology is consulted; spoke with Dr. Chavez. Has received 2 of 2 iron infusions. We will monitor serial CBCs and transfuse for Hgb <7.0 (per discussion with Dr. Chavez). (2) Supratherapeutic INR Is this a current diagnosis for this admission?: Yes Plan: Resolved; INR 6.68-> 2.19-> 1.31-> 1.10 Secondary to chronic Coumadin use and EtOH. During the last admission, it was decided that the patient was not safe to be discharged on Coumadin. He was recommended to transition to Xarelto. Patient reports that he never filled his Xarelto due to limited health insurance. He reports that he has his INR checked every 1-3 months. Has received p.o. Vit K x2 doses s/p 3 units PRBC Holding Coumadin. Hematology is consulted (pt reports multiple DVT/PEs; ?underlying coagulopathy); would appreciate assistance in evaluating safer anticoagulation options. Plans Xarelto at discharge Monitor daily PT/INR. (3) EtOH dependence Qualifiers: Substance use status: uncomplicated Qualified Code(s): F10.20 - Alcohol dependence, uncomplicated Is this a current diagnosis for this admission?: Yes Plan: Patient with chronic heavy EtOH dependence; doing well, no withdrawal symptoms. He denies history of withdrawal/seizure. Banana bag nightly. Scheduled p.o. Valium As needed Ativan for anxiety/agitation/withdrawal symptoms. Fall, seizure, aspiration precautions. (4) Lung mass Is this a current diagnosis for this admission?: Yes Plan: Patient with known left upper lobe mass; during his last admission December 2017 he was evaluated with bronchoscopy (negative for malignancy) and TB was ruled out with serial sputum AFBs. Patient reports that he has been following with pulmonology; was recommended to go to [place] for specialized bronchoscopy procedure which he has declined to do. He does continue to smoke. Chest x-ray shows a left upper lobe mass which is lower from previous imaging. Recommended CT follow-up. Contrasted chest CT shows left upper lobe lung mass with chest wall invasion of 2 ribs with precarinal adenopathy. Pulmonology and oncology are consulted. Dr. Chavez is planning for CT Guided needle biopsy once INR is acceptable; likely tomorrow. (5) Tobacco dependence Is this a current diagnosis for this admission?: Yes Plan: Smoking cessation is encouraged; nicotine replacement therapies are provided. (6) Hypokalemia Is this a current diagnosis for this admission?: Yes Plan: Replete. We will monitor with daily chemistries and replace as necessary. (7) Hypomagnesemia Is this a current diagnosis for this admission?: Yes Plan: Replete. - Time Time Spent with patient: 15-24 minutes Medications reviewed and adjusted accordingly: Yes Anticipated discharge: Home Within: within 48 hours
[2018-07-23] MEDS: TRAMADOL HCL 50 MG TABLET PO PRN ×2 (17:44→23:37)
[2018-07-23] MEDS: NORMAL SALINE 1000 ML 1,000 ML with POTASSIUM CHLORIDE 20 MEQ, MAGNESIUM SULFATE 8 MEQ,... IV SCH ×5 (21:11)
[2018-07-24] MEDS: DIAZEPAM 5 MG TABLET PO SCH ×2 (06:09→12:35)
[2018-07-24 06:54] LABS: HEMATOCRIT 23.8 % (37.9-51.0); MEAN CORPUSCULAR HEMOGLOBIN 24.2 pg (27.0-33.4); MEAN CORPUSCULAR VOLUME 76 fl (80-97); PLATELET COUNT 201 10^3/uL (150-450); RED BLOOD COUNT 3.14 10^6/uL (4.35-5.55); RED CELL DISTRIBUTION WIDTH 22.3 % (11.5-14.0); WHITE BLOOD COUNT 7.2 10^3/uL (4.0-10.5)
[2018-07-24 06:56] LABS: HEMOGLOBIN 7.6 g/dL (13.5-17.0)
[2018-07-24 07:01] LABS: INTERNATIONAL RATION (INR) 1.02; PROTHROMBIN TIME 13.9 SEC (11.4-15.4)
[2018-07-24 07:02] LABS: PARTIAL THROMBOPLASTIN TIME 36.4 SEC (23.5-35.8)
--- NOTE | 2018-07-24 08:31 | PDOC PROGRESS REPORT ---
Subjective Progress Note for:: 07/24/18 Subjective:: No acute events overnight, patient is having some pain, getting only tramadol but needs something stronger. Plan for CT-guided biopsy today. Reason For Visit: ANEMIA,SUPRATHERAPEUTIC INR, LUNG MASS Physical Exam Vital Signs: Temp Pulse Resp BP Pulse Ox 98.1 F 77 18 130/69 H 98 07/24/18 07:25 07/24/18 07:25 07/24/18 07:25 07/24/18 07:25 07/24/18 07:25 Intake & Output 07/23/18 07/24/18 07/25/18 06:59 06:59 06:59 Intake Total 2198 2146 Balance 2198 2146 Weight 79.8 kg General appearance: PRESENT: no acute distress, well-developed, well-nourished Head exam: PRESENT: atraumatic, normocephalic Eye exam: PRESENT: conjunctiva pink, EOMI, PERRLA. ABSENT: scleral icterus Ear exam: PRESENT: normal external ear exam Mouth exam: PRESENT: moist, tongue midline Neck exam: ABSENT: carotid bruit, JVD, lymphadenopathy, thyromegaly Respiratory exam: PRESENT: clear to auscultation joe. ABSENT: rales, rhonchi, wheezes Cardiovascular exam: PRESENT: RRR. ABSENT: diastolic murmur, rubs, systolic murmur Pulses: PRESENT: normal dorsalis pedis pul Vascular exam: PRESENT: normal capillary refill GI/Abdominal exam: PRESENT: normal bowel sounds, soft. ABSENT: distended, guarding, mass, organolmegaly, rebound, tenderness Rectal exam: PRESENT: deferred Extremities exam: PRESENT: full ROM. ABSENT: calf tenderness, clubbing, pedal edema Neurological exam: PRESENT: alert, awake, oriented to person, oriented to place, oriented to time, oriented to situation, CN II-XII grossly intact. ABSENT: motor sensory deficit Psychiatric exam: PRESENT: appropriate affect, normal mood. ABSENT: homicidal ideation, suicidal ideation Skin exam: PRESENT: dry, intact, warm. ABSENT: cyanosis, rash Results Laboratory Results: 07/24/18 06:34 07/23/18 06:56 07/24/18 06:34 WBC 7.2 RBC 3.14 L Hgb 7.6 L Hct 23.8 L MCV 76 L MCH 24.2 L MCHC 32.0 RDW 22.3 H Plt Count 201 07/20/18 09:20 Troponin I < 0.012 Impressions: Chest CT 07/20/18 00:00 IMPRESSION: 1. Left upper lobe lung mass is larger. There is chest wall invasion with involvement of two ribs. Precarinal adenopathy. 2. Fatty liver. Cholelithiasis. Chest X-Ray 07/20/18 09:20 IMPRESSION: There is increased size and conspicuity of a masslike opacity of the left upper lobe. Findings are very worrisome for malignancy although infection and inflammation are differential considerations per previously imaged cavitary lesion at this location. Recommend CT to further evaluate. Assessment & Plan - Diagnosis (1) Cavitary lesion of lung Is this a current diagnosis for this admission?: Yes Plan: CT-guided biopsy today (2) Anemia Qualifiers: Anemia type: iron deficiency Iron deficiency anemia type: chronic blood loss Qualified Code(s): D50.0 - Iron deficiency anemia secondary to blood loss (chronic) Is this a current diagnosis for this admission?: Yes Plan: After biopsy we will see what hemoglobin looks like tomorrow may benefit from another unit of blood prior to discharge. (3) History of DVT of lower extremity Is this a current diagnosis for this admission?: Yes Plan: Holding anticoagulation until biopsy. Will need Xarelto thereafter. (4) Supratherapeutic INR Is this a current diagnosis for this admission?: Yes Plan: Resolved (5) EtOH dependence Qualifiers: Substance use status: uncomplicated Qualified Code(s): F10.20 - Alcohol dependence, uncomplicated Is this a current diagnosis for this admission?: Yes Plan: No withdrawal symptoms as of yet
[2018-07-24] MEDS: NICOTINE 21 MG/24 HR PATCH.TD24 TD SCH (10:01)
[2018-07-24] MEDS ORDERED: MIDAZOLAM 2 MG/2 ML INJ ONE (10:34)
[2018-07-24] MEDS ORDERED: LIDOCAINE 1% INJ-PF (10 MG/ML) 30 ML SDV ONE (10:35)
[2018-07-24] MEDS ORDERED: FENTANYL CITRATE INJ/PF 100 MCG/2 ML AMPUL ONE (10:35)
--- NOTE | 2018-07-24 12:12 | RADIOLOGY REPORT (SQ) ---
EXAM DESCRIPTION: CHEST SINGLE VIEW COMPLETED DATE/TIME: 07/24/2018 11:55 am REASON FOR STUDY: POST LUNG BIOPSY COMPARISON: Chest film 07/20/2018 EXAM PARAMETERS: NUMBER OF VIEWS: One view. TECHNIQUE: Single frontal radiographic view of the chest acquired. RADIATION DOSE: NA LIMITATIONS: None. FINDINGS: LUNGS AND PLEURA: 7 cm left upper lobe mass with adjacent erosion of the left 3rd and 4th ribs. No pneumothorax post lung biopsy. Trace left pleural effusion with minimal blunting the lateral costophrenic sulcus, new compared to fi lms 07/20/2018. 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 Right lung well inflated and clear. No right pleural effusion or pneumothorax. MEDIASTINUM AND HILAR STRUCTURES: Widened upper mediastinum from adenopathy HEART AND VASCULAR STRUCTURES: Heart normal in size. Normal vasculature. BONES: Erosions of the left lateral 3rd and 4th ribs HARDWARE: None in the chest. OTHER: No other significant finding. IMPRESSION: No pneumothorax post left upper lobe lung mass biopsy. TECHNICAL DOCUMENTATION: JOB ID: [id number] [employer]- All Rights Reserved Reading location - IP/workstation name: [email or web address]
[2018-07-24] MEDS: LISINOPRIL 10 MG TABLET PO SCH (12:35)
[2018-07-24] MEDS: THIAMINE HCL 100 MG TABLET PO SCH (12:35)
[2018-07-24] MEDS: HYDROCHLOROTHIAZIDE 25 MG TABLET PO SCH (12:35)
[2018-07-24] MEDS: MULTIVITAMIN TABLET PO SCH (12:35)
[2018-07-24] MEDS: FOLIC ACID 1 MG TABLET PO SCH (12:35)
[2018-07-24] MEDS: DOCUSATE SODIUM 100 MG CAPSULE PO SCH (12:40)
[2018-07-24] MEDS: MINERAL OIL/PETROLATUM,WHITE CREAM 114 GM TP SCH ×2 (12:41→17:30)
--- NOTE | 2018-07-24 12:59 | RADIOLOGY REPORT (SQ) ---
EXAM DESCRIPTION: CT BIOPSY LUNG/MEDIASTINUM; CT NEEDLE PLACEMENT COMPLETED DATE/TIME: 07/24/2018 11:36 am; 07/24/2018 11:35 am REASON FOR STUDY: LUNG MASS; LUNG BIOPSY D50.9 IRON DEFICIENCY ANEMIA, UNSPECIFIED COMPARISON: CT angio chest 05/06/2017, 12/22/2017, 07/20/2018 TECHNIQUE: CT guided biopsy of the left upper lobe primary lung mass performed with conscious sedati on. CT Fluoroscopy Time: 8.[address] scanners at this facility use dose modulation, iterative reconstruction, and/or weight based d osing when appropriate to reduce radiation dose to as low as reasonably achievable (ALARA). [facility]: Dose Right [facility]: CareDose [facility]: Dose Right [facility]: Teradose 4D [facility]: [employer] RADIATION DOSE: mGy. FINDINGS: After obtaining informed consent and explaining the risks and benefits of conscious sedati on,the patient agreed to the procedure. Prior to the procedure, a time out was performed to verify th e patient's identity and planned procedure. IV sedation was administered and physician direction by the registered nurse using 1 milligrams of Ve rsed and 75 micrograms of fentanyl, for conscious sedation. Physiologic monitoring was provided befor e, during, and after sedation. The total sedation time was 32 minutes. Documentation face to face time, the performing proceduralist, spent monitoring the patient: [address] scanning was performed to localize the percutaneous site for the biopsy approach. After sterile skin prep and local lidocaine for skin and deep tissue anesthesia, a coaxial biopsy nee dle was used to obtain multiple cores of tissue. Dr Simeon from pathology was present during sampling, evaluating adequacy of the specimen. The biopsy tissue was submitted to the lab in formalin. A Bios entry closure device was placed along the biopsy tract upon removing the needle from the left thorax. There were no immediate complications. Post procedure chest x-ray dictated separately demonstrates no immediate post procedure pneumothorax. Follow-up chest film in 2 hours will be obtained. Pathology is pending at the time of dictation. IMPRESSION: CT GUIDED BIOPSY OF THE left upper lobe mass PERFORMED WITHOUT IMMEDIATE COMPLICATION. PATHOLOGY PENDING. IV conscious sedation COMMENT: Quality ID [id number]: Final reports for procedures using fluoroscopy that document radiation exp osure indices, or exposure time and number of fluorographic images (if radiation exposure indices are not available) Patient medication list reviewed: Yes- Quality ID# [id number]:Eligible professional attests to documenting i n the medical record they obtained, updated, or reviewed the patient's current medications.. TECHNICAL DOCUMENTATION: JOB ID: [id number] Quality ID# [id number]: Final reports with documentation of one or more dose reduction techniques (e.g., Aut omated exposure control, adjustment of the mA and/or kV according to patient size, use of iterative r econstruction technique) 2010 [employer]- All Rights Reserved Reading location - IP/workstation name: [email or web address]
--- NOTE | 2018-07-24 15:06 | RADIOLOGY REPORT (SQ) ---
EXAM DESCRIPTION: CHEST SINGLE VIEW COMPLETED DATE/TIME: 07/24/2018 2:20 pm REASON FOR STUDY: POST LUNG BIOPSY *2 HOUR FILM* COMPARISON: Earlier the same day. EXAM PARAMETERS: NUMBER OF VIEWS: One view. TECHNIQUE: Single frontal radiographic view of the chest acquired. RADIATION DOSE: NA LIMITATIONS: None. FINDINGS: LUNGS AND PLEURA: Left upper lobe mass is again noted. Small left effusion. Left basilar airspace disease probably atelectasis. No pneumothorax 2 hours following left lung biopsy. MEDIASTINUM AND HILAR STRUCTURES: No masses. Contour normal. HEART AND VASCULAR STRUCTURES: Heart normal in size. Normal vasculature. BONES: No acute findings. HARDWARE: None in the chest. OTHER: No other significant finding. IMPRESSION: No pneumothorax 2 hours following left lung biopsy. TECHNICAL DOCUMENTATION: JOB ID: [id number] [employer]- All Rights Reserved Reading location - IP/workstation name: [email or web address]
--- NOTE | 2018-07-24 15:37 | PDOC PROGRESS REPORT ---
Subjective Progress Note for:: 07/24/18 Subjective:: Mikael WHEATLEY JR is a 53 year old male with a past medical history significant for hypertension, left upper lobe lung mass (negative AFBs December 2017), multiple DVTs/PE, on chronic Coumadin, chronic anemia, tobacco dependence, alcohol dependence, and noncompliance who was admitted 07/20/2018 for supratherapeutic INR and anemia. Patient seen on morning rounds. He is found sitting up to the edge of the bed comfortably on room air. He reports continued left chest wall pain that worsens with movement and deep breath; especially at night. He denies gross hematuria, hemoptysis, melena and hematochezia. He denies fever, chills, cardiac chest pain symptoms, palpitations, dyspnea, orthopnea, abdominal pain, nausea vomiting and diarrhea. He has no new questions or concerns. No concerns per nursing. Reason For Visit: ANEMIA,SUPRATHERAPEUTIC INR, LUNG MASS Physical Exam Vital Signs: Temp Pulse Resp BP Pulse Ox 97.8 F 82 16 164/82 H 99 07/24/18 12:31 07/24/18 12:31 07/24/18 12:31 07/24/18 12:31 07/24/18 12:31 Intake & Output 07/23/18 07/24/18 07/25/18 06:59 06:59 06:59 Intake Total 2198 2146 Balance 2198 2146 Weight 79.8 kg General appearance: PRESENT: no acute distress, disheveled - Poor hygiene/body odor, well-developed, well-nourished Head exam: PRESENT: atraumatic, normocephalic Eye exam: PRESENT: conjunctiva pink, EOMI, PERRLA. ABSENT: scleral icterus Mouth exam: PRESENT: moist, tongue midline Neck exam: ABSENT: carotid bruit, JVD, lymphadenopathy, thyromegaly Respiratory exam: PRESENT: clear to auscultation joe, decreased breath sounds - Left upper hanna, symmetrical, unlabored. ABSENT: rales, rhonchi, wheezes Cardiovascular exam: PRESENT: RRR. ABSENT: diastolic murmur, rubs, systolic murmur Vascular exam: PRESENT: normal capillary refill GI/Abdominal exam: PRESENT: normal bowel sounds, soft. ABSENT: distended, guarding, mass, organolmegaly, rebound, tenderness Rectal exam: PRESENT: deferred Extremities exam: PRESENT: full ROM, +2 edema - BLE; worse on left. ABSENT: calf tenderness, clubbing, pedal edema Neurological exam: PRESENT: alert, awake, oriented to person, oriented to place, oriented to time, oriented to situation, CN II-XII grossly intact. ABSENT: motor sensory deficit Psychiatric exam: PRESENT: normal mood, unusual affect. ABSENT: homicidal ideation, suicidal ideation Skin exam: PRESENT: dry, intact, warm, other - chronic venous stasis changes BLE. ABSENT: cyanosis, rash Results Laboratory Results: 07/24/18 06:34 07/23/18 06:56 07/24/18 06:34 WBC 7.2 RBC 3.14 L Hgb 7.6 L Hct 23.8 L MCV 76 L MCH 24.2 L MCHC 32.0 RDW 22.3 H Plt Count 201 07/20/18 09:20 Troponin I < 0.012 Impressions: Chest CT 07/20/18 00:00 IMPRESSION: 1. Left upper lobe lung mass is larger. There is chest wall invasion with involvement of two ribs. Precarinal adenopathy. 2. Fatty liver. Cholelithiasis. Chest X-Ray 07/24/18 00:00 IMPRESSION: No pneumothorax 2 hours following left lung biopsy. Guidance Needle Placement CT 07/24/18 00:00 IMPRESSION: CT GUIDED BIOPSY OF THE left upper lobe mass PERFORMED WITHOUT IMMEDIATE COMPLICATION. PATHOLOGY PENDING. IV conscious sedation Lung Biopsy CT 07/24/18 00:00 IMPRESSION: CT GUIDED BIOPSY OF THE left upper lobe mass PERFORMED WITHOUT IMMEDIATE COMPLICATION. PATHOLOGY PENDING. IV conscious sedation Assessment and Plan - Diagnosis (1) Anemia Qualifiers: Anemia type: iron deficiency Iron deficiency anemia type: chronic blood loss Qualified Code(s): D50.0 - Iron deficiency anemia secondary to blood loss (chronic) Is this a current diagnosis for this admission?: Yes Plan: Patient was admitted with hemoglobin 6.6; unknown baseline. At discharge (December 2017) hemoglobin was 9.1. Patient denies active bleeding, hematuria, hemoptysis, melena, hematochezia. He does continue to have heavy EtOH dependence; likely component of nutritional deficiency. Anemia panel revealed low iron (47.3) and low ferritin (15.20), and low folate (2.48). Now s/p 3 units PRBC and 2 iron infusions. Hgb 6.6-> 8.6-> 7.5-> 7.3-> 6.8-> 7.7-> 8.0-> 7.9-> 7.6. He appears asy mptomatic (normotensive, nml HR) Occult stool is negative. Supratherapeutic INR has resolved. Multivitamin, thiamin, and folic acid daily. Hematology is consulted; spoke with Dr. Chavez. We will monitor serial CBCs and transfuse for Hgb <7.0 (per discussion with Dr. Chavez). (2) Supratherapeutic INR Is this a current diagnosis for this admission?: Yes Plan: Resolved; INR 6.68-> 2.19-> 1.31-> 1.10-> 1.02 Secondary to chronic Coumadin use and EtOH. During the last admission, it was decided that the patient was not safe to be discharged on Coumadin. He was recommended to transition to Xarelto. Patient reports that he never filled his Xarelto due to limited health insurance. He reports that he has his INR checked every 1-3 months. Has received p.o. Vit K x2 doses s/p 3 units PRBC Holding Coumadin. Hematology is consulted (pt reports multiple DVT/PEs; ?underlying coagulopathy); would appreciate assistance in evaluating safer anticoagulation options. Plans Xarelto at discharge (3) EtOH dependence Qualifiers: Substance use status: uncomplicated Qualified Code(s): F10.20 - Alcohol dependence, uncomplicated Is this a current diagnosis for this admission?: Yes Plan: Patient with chronic heavy EtOH dependence; doing well, no withdrawal symptoms. He denies history of withdrawal/seizure. Multivitamin, thiamine, folic acid daily supplementation. Scheduled p.o. Valium; will decrease dose again today. As needed Ativan for anxiety/agitation/withdrawal symptoms. Fall, seizure, aspiration precautions. (4) Lung mass Is this a current diagnosis for this admission?: Yes Plan: Patient with known left upper lobe mass; during his last admission December 2017 he was evaluated with bronchoscopy (negative for malignancy) and TB was ruled out with serial sputum AFBs. Patient reports that he has been following with pulmonology; was recommended to go to [place] for specialized bronchoscopy procedure which he has declined to do. He does continue to smoke. Chest x-ray shows a left upper lobe mass which is lower from previous imaging. Recommended CT follow-up. Contrasted chest CT shows left upper lobe lung mass with chest wall invasion of 2 ribs with precarinal adenopathy. Pulmonology and oncology are consulted. CT-guided needle biopsy done today; pathology pending. (5) Tobacco dependence Is this a current diagnosis for this admission?: Yes Plan: Smoking cessation is encouraged; nicotine replacement therapies are provided. (6) Hypokalemia Is this a current diagnosis for this admission?: Yes Plan: Replete. We will monitor with daily chemistries and replace as necessary. (7) Hypomagnesemia Is this a current diagnosis for this admission?: Yes Plan: Replete. (8) Hyponatremia Is this a current diagnosis for this admission?: Yes Plan: Mild; appears stable. Not clinically significant at this time. Likely secondary to low-sodium diet and HCTZ use for management of hypertension. May also be related to lung mass. Patient did receive IV fluids; now on p.o. only. We will continue to monitor on daily chemistries. - Time Time Spent with patient: 15-24 minutes Medications reviewed and adjusted accordingly: Yes Anticipated discharge: Home Within: within 24 hours - Monitor following lung biopsy today. Scott Brown with at discharge.
--- NOTE | 2018-07-24 16:15 | PDOC CONSULTATION ---
Consultation Consult Date: 07/21/18 Attending physician:: AVILA ESTEBAN Consult reason:: Lung abscess History of Present Illness Admission Date/PCP: 07/20/18 11:36 History of Present Illness: Mikael WHEATLEY JR is a 53 year old male Past Medical History Cardiac Medical History: Reports: Hypertension, Peripheral Vascular Disease Pulmonary Medical History: Reports: Pneumonia Neurological Medical History: Denies: Migraine, Seizures Endocrine Medical History: Denies: Diabetes Mellitus Type 2, Hyperthyroidism, Hypothyroidism Renal/ Medical History: Denies: Chronic Kidney Disease, End Stage Renal Disease Malignancy Medical History: Reports: None GI Medical History: Reports: Gastroesophageal Reflux Disease Psychiatric Medical History: Reports: Alcohol Dependency, Tobacco Dependency Traumatic Medical History: Denies: Gunshot Wound, Traumatic Brain Injury Hematology: Reports: Anemia Denies: Bleeding Tendencies Past Surgical History Past Surgical History: Reports: Other - Bronchoscopy x2 Social History Lives with: Spouse/Significant other Smoking Status: Current Every Day Smoker Cigarettes Packs Per Day: 1.5 Number of Years Smokin Frequency of Alcohol Use: Heavy Hx Recreational Drug Use: No Drugs: None Hx Prescription Drug Abuse: No - Advance Directive Resuscitation Status: Full Code Family History Family History: Hypertension, Malignancy - Mother with breast cancer Medication/Allergy Home Medications: Lisinopril/Hydrochlorothiazide [Lisinopril-Hctz 20-25 mg Tab] 1 each PO DAILY 12/22/17 Warfarin Sodium 4 mg PO DAILY 07/20/18 Allergies/Adverse Reactions: Penicillins Allergy (Verified 07/20/18 08:05) Physical Exam Vital Signs: Temp Pulse Resp BP Pulse Ox 97.8 F 82 16 164/82 H 99 07/24/18 12:31 07/24/18 12:31 07/24/18 12:31 07/24/18 12:31 07/24/18 12:31 Intake & Output 07/23/18 07/24/18 07/25/18 06:59 06:59 06:59 Intake Total 2198 2146 Balance 2198 2146 Weight 79.8 kg Results Laboratory Results: 07/24/18 06:34 07/23/18 06:56 07/24/18 06:34 WBC 7.2 RBC 3.14 L Hgb 7.6 L Hct 23.8 L MCV 76 L MCH 24.2 L MCHC 32.0 RDW 22.3 H Plt Count 201 07/20/18 09:20 Troponin I < 0.012 Impressions: Chest CT 07/20/18 00:00 IMPRESSION: 1. Left upper lobe lung mass is larger. There is chest wall invasion with involvement of two ribs. Precarinal adenopathy. 2. Fatty liver. Cholelithiasis. Chest X-Ray 07/24/18 00:00 IMPRESSION: No pneumothorax 2 hours following left lung biopsy. Guidance Needle Placement CT 07/24/18 00:00 IMPRESSION: CT GUIDED BIOPSY OF THE left upper lobe mass PERFORMED WITHOUT IMMEDIATE COMPLICATION. PATHOLOGY PENDING. IV conscious sedation Lung Biopsy CT 07/24/18 00:00
[2018-07-24] MEDS: DIAZEPAM 2 MG TABLET PO SCH (21:46)
[2018-07-24] MEDS: OXYCODONE HCL IR 5 MG TABLET PO PRN (23:40)
[2018-07-25] MEDS: DIAZEPAM 2 MG TABLET PO SCH ×3 (05:06→22:02)
[2018-07-25 05:45] LABS: HEMATOCRIT 24.1 % (37.9-51.0); MEAN CORPUSCULAR HEMOGLOBIN 24.8 pg (27.0-33.4); MEAN CORPUSCULAR HGB CONC 32.5 g/dL (32.0-36.0); MEAN CORPUSCULAR VOLUME 76 fl (80-97); PLATELET COUNT 215 10^3/uL (150-450); RED BLOOD COUNT 3.16 10^6/uL (4.35-5.55); RED CELL DISTRIBUTION WIDTH 22.7 % (11.5-14.0); WHITE BLOOD COUNT 7.1 10^3/uL (4.0-10.5)
[2018-07-25 05:49] LABS: HEMOGLOBIN 7.8 g/dL (13.5-17.0)
[2018-07-25 06:09] LABS: BLOOD UREA NITROGEN 9 mg/dL (7-20); CALCIUM 9.1 mg/dL (8.4-10.2); CARBON DIOXIDE 25 mmol/L (22-30); CHLORIDE 98 mmol/L (98-107); GLUCOSE 87 mg/dL (75-110); POTASSIUM 3.3 mmol/L (3.6-5.0); SODIUM 130.2 mmol/L (137-145)
[2018-07-25 06:10] LABS: ALANINE AMINOTRANSFERASE 12 U/L (21-72); ALBUMIN 2.5 g/dL (3.5-5.0); ALKALINE PHOSPHATASE 77 U/L (38-126); ANION GAP 7 (5-19); ASPARTATE AMINO TRANSFERASE 14 U/L (17-59); BILIRUBIN,DIRECT 0.3 mg/dL (0.0-0.4); BILIRUBIN,TOTAL 0.4 mg/dL (0.2-1.3); TOTAL PROTEIN 5.7 g/dL (6.3-8.2)
--- NOTE | 2018-07-25 08:41 | PDOC PROGRESS REPORT ---
Subjective Progress Note for:: 07/25/18 Subjective:: Biopsy done yesterday, hemoglobin 7.8 today Reason For Visit: ANEMIA,SUPRATHERAPEUTIC INR, LUNG MASS Physical Exam Vital Signs: Temp Pulse Resp BP Pulse Ox 98.7 F 79 18 152/78 H 95 07/25/18 00:00 07/25/18 07:00 07/25/18 04:00 07/25/18 04:00 07/25/18 04:00 Intake & Output 07/24/18 07/25/18 07/26/18 06:59 06:59 06:59 Intake Total 2146 1163 Balance 2146 1163 Weight 79.9 kg General appearance: PRESENT: no acute distress, well-developed, well-nourished Head exam: PRESENT: atraumatic, normocephalic Eye exam: PRESENT: conjunctiva pink, EOMI, PERRLA. ABSENT: scleral icterus Ear exam: PRESENT: normal external ear exam Mouth exam: PRESENT: moist, tongue midline Neck exam: ABSENT: carotid bruit, JVD, lymphadenopathy, thyromegaly Respiratory exam: PRESENT: clear to auscultation joe. ABSENT: rales, rhonchi, wheezes Cardiovascular exam: PRESENT: RRR. ABSENT: diastolic murmur, rubs, systolic murmur Pulses: PRESENT: normal dorsalis pedis pul Vascular exam: PRESENT: normal capillary refill GI/Abdominal exam: PRESENT: normal bowel sounds, soft. ABSENT: distended, guarding, mass, organolmegaly, rebound, tenderness Rectal exam: PRESENT: deferred Extremities exam: PRESENT: full ROM. ABSENT: calf tenderness, clubbing, pedal edema Neurological exam: PRESENT: alert, awake, oriented to person, oriented to place, oriented to time, oriented to situation, CN II-XII grossly intact. ABSENT: motor sensory deficit Psychiatric exam: PRESENT: appropriate affect, normal mood. ABSENT: homicidal ideation, suicidal ideation Skin exam: PRESENT: dry, intact, warm. ABSENT: cyanosis, rash Results Laboratory Results: 07/25/18 05:02 07/25/18 05:02 07/24/18 07/25/18 07/25/18 16:35 05:02 05:02 WBC 7.1 RBC 3.16 L Hgb 7.8 L Hct 24.1 L MCV 76 L MCH 24.8 L MCHC 32.5 RDW 22.7 H Plt Count 215 Sodium 130.2 L Potassium 3.3 L Chloride 98 Carbon Dioxide 25 Anion Gap 7 BUN 9 Creatinine 0.81 Est GFR ( Amer) > 60 Est GFR (Non-Af Amer) > 60 Glucose 87 Calcium 9.1 Total Bilirubin 0.4 AST 14 L ALT 12 L Alkaline Phosphatase 77 Total Protein 5.7 L Albumin 2.5 L Stool Occult Blood NEGATIVE 07/20/18 09:20 Troponin I < 0.012 Impressions: Chest CT 07/20/18 00:00 IMPRESSION: 1. Left upper lobe lung mass is larger. There is chest wall invasion with involvement of two ribs. Precarinal adenopathy. 2. Fatty liver. Cholelithiasis. Chest X-Ray 07/24/18 00:00 IMPRESSION: No pneumothorax 2 hours following left lung biopsy. Guidance Needle Placement CT 07/24/18 00:00 IMPRESSION: CT GUIDED BIOPSY OF THE left upper lobe mass PERFORMED WITHOUT IMMEDIATE COMPLICATION. PATHOLOGY PENDING. IV conscious sedation Lung Biopsy CT 07/24/18 00:00 IMPRESSION: CT GUIDED BIOPSY OF THE left upper lobe mass PERFORMED WITHOUT IMMEDIATE COMPLICATION. PATHOLOGY PENDING. IV conscious sedation Assessment & Plan - Diagnosis (1) Cavitary lesion of lung Is this a current diagnosis for this admission?: Yes Plan: Patient will follow up with biopsy in 1 week (2) Anemia Qualifiers: Anemia type: iron deficiency Iron deficiency anemia type: chronic blood loss Qualified Code(s): D50.0 - Iron deficiency anemia secondary to blood loss (chronic) Is this a current diagnosis for this admission?: Yes Plan: Ordered 1 more unit of blood today. Patient should receive 1 more Feraheme infusion tomorrow (3) History of DVT of lower extremity Is this a current diagnosis for this admission?: Yes Plan: Lower extremity ultrasound today. I am considering letting him go tomorrow without anticoagulation, to make sure that the biopsy does show a diagnostic finding, as well as to make sure that the patient does not bleed further. (4) Supratherapeutic INR Is this a current diagnosis for this admission?: Yes Plan: Resolved (5) EtOH dependence Qualifiers: Substance use status: uncomplicated Qualified Code(s): F10.20 - Alcohol dependence, uncomplicated Is this a current diagnosis for this admission?: Yes Plan: Stable - Time Time Spent with patient: 35 or more minutes
[2018-07-25] MEDS: MINERAL OIL/PETROLATUM,WHITE CREAM 114 GM TP SCH ×2 (09:17→18:44)
[2018-07-25] MEDS: DOCUSATE SODIUM 100 MG CAPSULE PO SCH (09:17)
[2018-07-25] MEDS: HYDROCHLOROTHIAZIDE 25 MG TABLET PO SCH (11:26)
[2018-07-25] MEDS: THIAMINE HCL 100 MG TABLET PO SCH (11:26)
[2018-07-25] MEDS: MULTIVITAMIN TABLET PO SCH (11:26)
[2018-07-25] MEDS: FOLIC ACID 1 MG TABLET PO SCH (11:26)
[2018-07-25] MEDS: LISINOPRIL 10 MG TABLET PO SCH (11:27)
[2018-07-25] MEDS: NICOTINE 21 MG/24 HR PATCH.TD24 TD SCH (11:27)
[2018-07-25] MEDS ORDERED: POTASSIUM CHLORIDE 10 MEQ CAPSULE.ER PO ONE ×2 (11:54→15:00)
--- NOTE | 2018-07-25 12:53 | RADIOLOGY REPORT (SQ) ---
EXAM DESCRIPTION: VENOUS BILATERAL LOWER COMPLETED DATE/TIME: 07/25/2018 12:14 pm REASON FOR STUDY: B/L LE U/S INDICATION DVT D50.9 IRON DEFICIENCY ANEMIA, UNSPECIFIED COMPARISON: None. TECHNIQUE: Dynamic and static winn scale and color images acquired of both lower extremity venous sy stems. Selected spectral images acquired with additional compression and augmentation maneuvers. Imag es stored on PACS. LIMITATIONS: None. FINDINGS: RIGHT LEG COMMON FEMORAL AND FEMORAL: Patent common femoral vein. Partially occlusive thrombus in the femoral vein. POPLITEAL: Partially occlusive thrombus. CALF VESSELS: Normal compression and augmentation. No visualized echogenic material on winn scale. No defects on color image. GSV AND SSV: Normal compression. No visualized echogenic material on winn scale. No defects on color images. ANY DEEP VENOUS INSUFFICIENCY: Not evaluated. ANY EVIDENCE OF POPLITEAL CYST: No. OTHER: No other significant finding. LEFT LEG COMMON FEMORAL AND FEMORAL: Normal phasicity, compression and augmentation. No visualized echogenic m aterial on winn scale. No defects on color images. POPLITEAL: Normal compression and augmentation. No visualized echogenic material on winn scale. No de fects on color images. CALF VESSELS: Normal compression and augmentation. No visualized echogenic material on winn scale. No defects on color images. GSV AND SSV: Superficial thrombosis in a segment of the greater saphenous vein in the thigh. Patent SSV. ANY DEEP VENOUS INSUFFICIENCY: Not evaluated. ANY EVIDENCE POPLITEAL CYST: No. OTHER: No other significant finding. IMPRESSION: 1. PARTIALLY OCCLUSIVE DEEP VENOUS THROMBOSIS IN THE FEMORAL VEIN AND POPLITEAL VEIN OF THE RIGHT LEG . 2. SHORT SEGMENT SUPERFICIAL VENOUS THROMBOSIS IN THE GREATER SAPHENOUS VEIN OF THE LEFT THIGH. NO D VT IN THE LEFT LEG. COMMENT: Preliminary report was called by the technologist to the referring clinician's office at th e time of the exam. TECHNICAL DOCUMENTATION: JOB ID: [id number] [employer]- All Rights Reserved Reading location - IP/workstation name: [email or web address]
[2018-07-25] MEDS: RIVAROXABAN 10 MG TABLET PO SCH (14:05)
[2018-07-25 18:49] LABS: ABSOLUTE BASOPHILS # (AUTO) 0.1 10^3/uL (0.0-0.2); ABSOLUTE EOSINOPHILS # (AUTO) 0.2 10^3/uL (0.0-0.6); ABSOLUTE LYMPHOCYTES (AUTO) 0.9 10^3/uL (0.5-4.7); ABSOLUTE MONOCYTES (AUTO) 1.1 10^3/uL (0.1-1.4); ABSOLUTE NEUT (AUTO) 5.4 10^3/uL (1.7-8.2); BASOPHILS % (AUTO) 1.5 % (0-2); EOSINOPHILS % (AUTO) 2.5 % (0-6); HEMATOCRIT 26.6 % (37.9-51.0); HEMOGLOBIN 8.8 g/dL (13.5-17.0); LYMPHOCYTES % (AUTO) 11.8 % (13-45); MEAN CORPUSCULAR HEMOGLOBIN 25.2 pg (27.0-33.4); MEAN CORPUSCULAR HGB CONC 32.9 g/dL (32.0-36.0); MEAN CORPUSCULAR VOLUME 77 fl (80-97); MONOCYTES % (AUTO) 14.8 % (3-13); PLATELET COUNT 251 10^3/uL (150-450); RED BLOOD COUNT 3.48 10^6/uL (4.35-5.55); RED CELL DISTRIBUTION WIDTH 22.8 % (11.5-14.0); SEGMENTED NEUTROPHILS % (AUTO) 69.4 % (42-78); TOTAL CELLS COUNTED % (AUTO) 100 %; WHITE BLOOD COUNT 7.7 10^3/uL (4.0-10.5)
[2018-07-25] MEDS: POTASSIUM CHLORIDE 10 MEQ CAPSULE.ER PO SCH (22:02)
[2018-07-25] MEDS: OXYCODONE HCL IR 5 MG TABLET PO PRN (23:53)
[2018-07-26 04:03] LABS: HEMATOCRIT 26.2 % (37.9-51.0); HEMOGLOBIN 8.5 g/dL (13.5-17.0); MEAN CORPUSCULAR HGB CONC 32.2 g/dL (32.0-36.0); MEAN CORPUSCULAR VOLUME 78 fl (80-97); PLATELET COUNT 246 10^3/uL (150-450); RED BLOOD COUNT 3.38 10^6/uL (4.35-5.55); RED CELL DISTRIBUTION WIDTH 22.5 % (11.5-14.0); WHITE BLOOD COUNT 7.7 10^3/uL (4.0-10.5)
[2018-07-26 04:27] LABS: ANION GAP 6 (5-19); BLOOD UREA NITROGEN 9 mg/dL (7-20); CALCIUM 9.3 mg/dL (8.4-10.2); CARBON DIOXIDE 26 mmol/L (22-30); CHLORIDE 97 mmol/L (98-107); GLUCOSE 89 mg/dL (75-110); POTASSIUM 3.7 mmol/L (3.6-5.0); SODIUM 128.9 mmol/L (137-145)
[2018-07-26] MEDS: DIAZEPAM 2 MG TABLET PO SCH ×3 (06:05→21:00)
--- NOTE | 2018-07-26 08:37 | PDOC PROGRESS REPORT ---
Subjective Progress Note for:: 07/26/18 Subjective:: Patient doing well, no acute events overnight. Yesterday we had results of the biopsy, this indicated squamous cell carcinoma, lower extremity ultrasound indicated positive DVT, I started patient on Xarelto 20 mg daily yesterday. Reason For Visit: ANEMIA,SUPRATHERAPEUTIC INR, LUNG MASS Physical Exam Vital Signs: Temp Pulse Resp BP Pulse Ox 98.5 F 77 17 149/72 H 97 07/26/18 04:00 07/26/18 04:00 07/26/18 04:00 07/26/18 04:00 07/26/18 04:00 Intake & Output 07/25/18 07/26/18 07/27/18 06:59 06:59 06:59 Intake Total 1163 2311 Balance 1163 2311 Weight 79.9 kg 79.8 kg General appearance: PRESENT: no acute distress, well-developed, well-nourished Head exam: PRESENT: atraumatic, normocephalic Eye exam: PRESENT: conjunctiva pink, EOMI, PERRLA. ABSENT: scleral icterus Ear exam: PRESENT: normal external ear exam Mouth exam: PRESENT: moist, tongue midline Neck exam: ABSENT: carotid bruit, JVD, lymphadenopathy, thyromegaly Respiratory exam: PRESENT: clear to auscultation joe. ABSENT: rales, rhonchi, wheezes Cardiovascular exam: PRESENT: RRR. ABSENT: diastolic murmur, rubs, systolic murmur Pulses: PRESENT: normal dorsalis pedis pul Vascular exam: PRESENT: normal capillary refill GI/Abdominal exam: PRESENT: normal bowel sounds, soft. ABSENT: distended, guarding, mass, organolmegaly, rebound, tenderness Rectal exam: PRESENT: deferred Extremities exam: PRESENT: full ROM. ABSENT: calf tenderness, clubbing, pedal edema Neurological exam: PRESENT: alert, awake, oriented to person, oriented to place, oriented to time, oriented to situation, CN II-XII grossly intact. ABSENT: motor sensory deficit Psychiatric exam: PRESENT: appropriate affect, normal mood. ABSENT: homicidal ideation, suicidal ideation Skin exam: PRESENT: dry, intact, warm. ABSENT: cyanosis, rash Results Laboratory Results: 07/26/18 03:40 07/26/18 03:40 07/25/18 07/25/18 07/26/18 09:25 18:37 03:40 WBC 7.7 7.7 RBC 3.48 L 3.38 L Hgb 8.8 L 8.5 L Hct 26.6 L 26.2 L MCV 77 L 78 L MCH 25.2 L 25.0 L MCHC 32.9 32.2 RDW 22.8 H 22.5 H Plt Count 251 246 Seg Neutrophils % 69.4 Lymphocytes % 11.8 L Monocytes % 14.8 H Eosinophils % 2.5 Basophils % 1.5 Absolute Neutrophils 5.4 Absolute Lymphocytes 0.9 Absolute Monocytes 1.1 Absolute Eosinophils 0.2 Absolute Basophils 0.1 Sodium Potassium Chloride Carbon Dioxide Anion Gap BUN Creatinine Est GFR ( Amer) Est GFR (Non-Af Amer) Glucose Calcium Blood Type A NEGATIVE Antibody Screen NEGATIVE 07/26/18 03:40 WBC RBC Hgb Hct MCV MCH MCHC RDW Plt Count Seg Neutrophils % Lymphocytes % Monocytes % Eosinophils % Basophils % Absolute Neutrophils Absolute Lymphocytes Absolute Monocytes Absolute Eosinophils Absolute Basophils Sodium 128.9 L Potassium 3.7 Chloride 97 L Carbon Dioxide 26 Anion Gap 6 BUN 9 Creatinine 0.81 Est GFR ( Amer) > 60 Est GFR (Non-Af Amer) > 60 Glucose 89 Calcium 9.3 Blood Type Antibody Screen 07/20/18 09:20 Troponin I < 0.012 Impressions: Chest CT 07/20/18 00:00 IMPRESSION: 1. Left upper lobe lung mass is larger. There is chest wall invasion with involvement of two ribs. Precarinal adenopathy. 2. Fatty liver. Cholelithiasis. Chest X-Ray 07/24/18 00:00 IMPRESSION: No pneumothorax 2 hours following left lung biopsy. Guidance Needle Placement CT 07/24/18 00:00 IMPRESSION: CT GUIDED BIOPSY OF THE left upper lobe mass PERFORMED WITHOUT IMMEDIATE COMPLICATION. PATHOLOGY PENDING. IV conscious sedation Lung Biopsy CT 07/24/18 00:00 IMPRESSION: CT GUIDED BIOPSY OF THE left upper lobe mass PERFORMED WITHOUT IMMEDIATE COMPLICATION. PATHOLOGY PENDING. IV conscious sedation Venous Doppler Study 07/25/18 08:15 IMPRESSION: 1. PARTIALLY OCCLUSIVE DEEP VENOUS THROMBOSIS IN THE FEMORAL VEIN AND POPLITEAL VEIN OF THE RIGHT LEG. 2. SHORT SEGMENT SUPERFICIAL VENOUS THROMBOSIS IN THE GREATER SAPHENOUS VEIN OF THE LEFT THIGH. NO DVT IN THE LEFT LEG. Assessment & Plan - Diagnosis (1) Anemia Qualifiers: Anemia type: iron deficiency Iron deficiency anemia type: chronic blood loss Qualified Code(s): D50.0 - Iron deficiency anemia secondary to blood loss (chronic) Is this a current diagnosis for this admission?: Yes Plan: Hemoglobin stable post transfusion and IV iron, we will need to follow closely as an outpatient (2) History of DVT of lower extremity Is this a current diagnosis for this admission?: Yes Plan: Has active DVT, continue Xarelto 20 mg daily, I will be getting him a 2-week supply of free medication (3) EtOH dependence Qualifiers: Substance use status: uncomplicated Qualified Code(s): F10.20 - Alcohol dependence, uncomplicated Is this a current diagnosis for this admission?: Yes Plan: Stable, hopefully will remain abstinent as an outpatient (4) Cancer of lung, upper lobe Qualifiers: Laterality: left Qualified Code(s): C34.12 - Malignant neoplasm of upper lobe, left bronchus or lung Is this a current diagnosis for this admission?: Yes Plan: Left upper lobe squamous cell carcinoma, 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 Okay to discharge home today, he will need a small course of pain medication for 1 week. We will take over pain control as an outpatient. We will set him up for a PET/CT this weekend and give him the instructions for that as well as follow-up in our office thereafter. - Time Time Spent with patient: 35 or more minutes Disposition: Had long discussion about patient course, he understands his prognosis and next steps of care.
[2018-07-26] MEDS: THIAMINE HCL 100 MG TABLET PO SCH (09:05)
[2018-07-26] MEDS: LISINOPRIL 10 MG TABLET PO SCH (09:06)
[2018-07-26] MEDS: DOCUSATE SODIUM 100 MG CAPSULE PO SCH (09:07)
[2018-07-26] MEDS: RIVAROXABAN 10 MG TABLET PO SCH (09:07)
[2018-07-26] MEDS: HYDROCHLOROTHIAZIDE 25 MG TABLET PO SCH (09:07)
[2018-07-26] MEDS: FOLIC ACID 1 MG TABLET PO SCH (09:07)
[2018-07-26] MEDS: NICOTINE 21 MG/24 HR PATCH.TD24 TD SCH (09:08)
[2018-07-26] MEDS: POTASSIUM CHLORIDE 10 MEQ CAPSULE.ER PO SCH ×2 (09:10→21:00)
[2018-07-26] MEDS: MULTIVITAMIN TABLET PO SCH (09:10)
[2018-07-26] MEDS: MINERAL OIL/PETROLATUM,WHITE CREAM 114 GM TP SCH ×2 (09:13→17:44)
[2018-07-26 16:40] LABS: ANION GAP 5 (5-19); BLOOD UREA NITROGEN 11 mg/dL (7-20); CALCIUM 9.6 mg/dL (8.4-10.2); CARBON DIOXIDE 30 mmol/L (22-30); CHLORIDE 96 mmol/L (98-107); GLUCOSE 123 mg/dL (75-110); SODIUM 130.9 mmol/L (137-145)
--- NOTE | 2018-07-26 17:04 | PDOC PROGRESS REPORT ---
Subjective Progress Note for:: 07/26/18 - seen on rounds this morning Subjective:: States that he is feeling fine. Would like to know when he can go home. I spoke with Dr. Chavez this morning and he has cleared the patient for discharge. I did speak with patient about his low sodium levels and I am concerned that this may continue to drop. I advised that he should stay another day or so to evaluate this. Spoke with patient and he tells me that he has no pain at this time-denies chest pain, shortness of breath, abdominal pain, nausea vomiting or dizziness. Reason For Visit: ANEMIA,SUPRATHERAPEUTIC INR, LUNG MASS Physical Exam Vital Signs: Temp Pulse Resp BP Pulse Ox 98.5 F 83 17 149/72 H 97 07/26/18 04:00 07/26/18 07:00 07/26/18 04:00 07/26/18 04:00 07/26/18 04:00 Intake & Output 07/25/18 07/26/18 07/27/18 06:59 06:59 06:59 Intake Total 1163 2311 Balance 1163 2311 Weight 176 lb 2.389 oz 175 lb 14.862 oz General appearance: PRESENT: no acute distress Head exam: PRESENT: atraumatic, normocephalic Eye exam: PRESENT: EOMI. ABSENT: conjunctival injection, scleral icterus Ear exam: PRESENT: normal external ear exam Mouth exam: PRESENT: moist, tongue midline Neck exam: ABSENT: tracheal deviation Respiratory exam: PRESENT: clear to auscultation joe, symmetrical Cardiovascular exam: PRESENT: +S1, +S2, systolic murmur Pulses: PRESENT: +2 pedal pulses bilateral GI/Abdominal exam: PRESENT: normal bowel sounds, soft. ABSENT: tenderness Extremities exam: PRESENT: pedal edema Neurological exam: PRESENT: alert, awake, oriented to person, oriented to place, oriented to time, oriented to situation, CN II-XII grossly intact Skin exam: PRESENT: dry, warm Results Laboratory Results: 07/26/18 03:40 07/26/18 03:40 07/25/18 07/25/18 07/26/18 09:25 18:37 03:40 WBC 7.7 7.7 RBC 3.48 L 3.38 L Hgb 8.8 L 8.5 L Hct 26.6 L 26.2 L MCV 77 L 78 L MCH 25.2 L 25.0 L MCHC 32.9 32.2 RDW 22.8 H 22.5 H Plt Count 251 246 Seg Neutrophils % 69.4 Lymphocytes % 11.8 L Monocytes % 14.8 H Eosinophils % 2.5 Basophils % 1.5 Absolute Neutrophils 5.4 Absolute Lymphocytes 0.9 Absolute Monocytes 1.1 Absolute Eosinophils 0.2 Absolute Basophils 0.1 Sodium Potassium Chloride Carbon Dioxide Anion Gap BUN Creatinine Est GFR ( Amer) Est GFR (Non-Af Amer) Glucose Calcium Blood Type A NEGATIVE Antibody Screen NEGATIVE 07/26/18 03:40 WBC RBC Hgb Hct MCV MCH MCHC RDW Plt Count Seg Neutrophils % Lymphocytes % Monocytes % Eosinophils % Basophils % Absolute Neutrophils Absolute Lymphocytes Absolute Monocytes Absolute Eosinophils Absolute Basophils Sodium 128.9 L Potassium 3.7 Chloride 97 L Carbon Dioxide 26 Anion Gap 6 BUN 9 Creatinine 0.81 Est GFR ( Amer) > 60 Est GFR (Non-Af Amer) > 60 Glucose 89 Calcium 9.3 Blood Type Antibody Screen 07/20/18 09:20 Troponin I < 0.012 Impressions: Chest CT 07/20/18 00:00 IMPRESSION: 1. Left upper lobe lung mass is larger. There is chest wall invasion with involvement of two ribs. Precarinal adenopathy. 2. Fatty liver. Cholelithiasis. Chest X-Ray 07/24/18 00:00 IMPRESSION: No pneumothorax 2 hours following left lung biopsy. Guidance Needle Placement CT 07/24/18 00:00 IMPRESSION: CT GUIDED BIOPSY OF THE left upper lobe mass PERFORMED WITHOUT IMMEDIATE COMPLICATION. PATHOLOGY PENDING. IV conscious sedation Lung Biopsy CT 07/24/18 00:00 IMPRESSION: CT GUIDED BIOPSY OF THE left upper lobe mass PERFORMED WITHOUT IMMEDIATE COMPLICATION. PATHOLOGY PENDING. IV conscious sedation Venous Doppler Study 07/25/18 08:15 IMPRESSION: 1. PARTIALLY OCCLUSIVE DEEP VENOUS THROMBOSIS IN THE FEMORAL VEIN AND POPLITEAL VEIN OF THE RIGHT LEG. 2. SHORT SEGMENT SUPERFICIAL VENOUS THROMBOSIS IN THE GREATER SAPHENOUS VEIN OF THE LEFT THIGH. NO DVT IN THE LEFT LEG. Assessment and Plan - Diagnosis (1) Cancer of lung, upper lobe Qualifiers: Laterality: left Qualified Code(s): C34.12 - Malignant neoplasm of upper lobe, left bronchus or lung Is this a current diagnosis for this admission?: Yes Plan: EUSEBIO mass- biopsy done- shows squamous cell Ca unfortunately. Dr Chavez consulted, appreciate his assistance. patient will f/u with him outpatient. he's cleared from Oncology for discharge. he will likely get PET scan next week. Dr Mitchell also requests that we d/c patient with some pain medications for his cancer (2) Hyponatremia Is this a current diagnosis for this admission?: Yes Plan: his Na has been slowly trending down- i have stopped his HCTz at this time. repeat BMP this evening. concern for SIADH given his EUSEBIO lung ca recently diagnosed. will fluid restrict to 1.5L (3) Supratherapeutic INR Is this a current diagnosis for this admission?: Yes Plan: resolved- started on xarelto (4) Cavitary lesion of lung Is this a current diagnosis for this admission?: Yes Plan: see plan above for lung ca (5) Constipation Is this a current diagnosis for this admission?: Yes (6) History of DVT of lower extremity Is this a current diagnosis for this admission?: Yes Plan: started on xarelto (7) Tobacco dependence Is this a current diagnosis for this admission?: Yes - Plan Summary Plan Summary: i think he can be discharged once his Na has improved
[2018-07-26] MEDS: OXYCODONE HCL IR 5 MG TABLET PO PRN (23:33)
[2018-07-27 03:28] VITALS: BP 130/75
[2018-07-27] MEDS: DIAZEPAM 2 MG TABLET PO SCH (05:33)
[2018-07-27 06:14] LABS: ABSOLUTE BASOPHILS # (AUTO) 0.1 10^3/uL (0.0-0.2); ABSOLUTE EOSINOPHILS # (AUTO) 0.2 10^3/uL (0.0-0.6); ABSOLUTE LYMPHOCYTES (AUTO) 1.2 10^3/uL (0.5-4.7); ABSOLUTE MONOCYTES (AUTO) 1.2 10^3/uL (0.1-1.4); ABSOLUTE NEUT (AUTO) 4.7 10^3/uL (1.7-8.2); BASOPHILS % (AUTO) 1.8 % (0-2); EOSINOPHILS % (AUTO) 3.1 % (0-6); HEMATOCRIT 27.5 % (37.9-51.0); HEMOGLOBIN 8.9 g/dL (13.5-17.0); LYMPHOCYTES % (AUTO) 15.8 % (13-45); MEAN CORPUSCULAR HEMOGLOBIN 25.3 pg (27.0-33.4); MEAN CORPUSCULAR HGB CONC 32.5 g/dL (32.0-36.0); MEAN CORPUSCULAR VOLUME 78 fl (80-97); MONOCYTES % (AUTO) 16.4 % (3-13); PLATELET COUNT 285 10^3/uL (150-450); RED BLOOD COUNT 3.52 10^6/uL (4.35-5.55); RED CELL DISTRIBUTION WIDTH 24.8 % (11.5-14.0); SEGMENTED NEUTROPHILS % (AUTO) 62.9 % (42-78); TOTAL CELLS COUNTED % (AUTO) 100 %; WHITE BLOOD COUNT 7.4 10^3/uL (4.0-10.5)
[2018-07-27 06:28] LABS: ANION GAP 7 (5-19); BLOOD UREA NITROGEN 10 mg/dL (7-20); CALCIUM 9.5 mg/dL (8.4-10.2); CARBON DIOXIDE 25 mmol/L (22-30); CHLORIDE 97 mmol/L (98-107); GLUCOSE 85 mg/dL (75-110); POTASSIUM 4.1 mmol/L (3.6-5.0); SODIUM 129.3 mmol/L (137-145)
[2018-07-27 06:41] LABS: ANISOCYTOSIS 3+; HYPOCHROMASIA SLIGHT; PLATELET COMMENT ADEQUATE
[2018-07-27] MEDS: POTASSIUM CHLORIDE 10 MEQ CAPSULE.ER PO SCH (08:59)
[2018-07-27] MEDS: DOCUSATE SODIUM 100 MG CAPSULE PO SCH (08:59)
[2018-07-27] MEDS: MULTIVITAMIN TABLET PO SCH (08:59)
[2018-07-27] MEDS: NICOTINE 21 MG/24 HR PATCH.TD24 TD SCH (08:59)
[2018-07-27] MEDS: THIAMINE HCL 100 MG TABLET PO SCH (08:59)
[2018-07-27] MEDS: RIVAROXABAN 10 MG TABLET PO SCH (08:59)
[2018-07-27] MEDS: FOLIC ACID 1 MG TABLET PO SCH (08:59)
[2018-07-27] MEDS: LISINOPRIL 10 MG TABLET PO SCH (08:59)
[2018-07-27] MEDS: MINERAL OIL/PETROLATUM,WHITE CREAM 114 GM TP SCH (09:00)
--- NOTE | 2018-07-27 22:23 | PDOC PROGRESS REPORT ---
Subjective Progress Note for:: 07/25/18 Subjective:: The patient is sitting at the edge of the bed resting comfortably. He does have discomfort in the left axilla. Ultrasound reveals deep venous thrombosis in his leg. Reason For Visit: ANEMIA,SUPRATHERAPEUTIC INR, LUNG MASS Physical Exam Vital Signs: Temp Pulse Resp BP Pulse Ox 98.7 F 79 18 152/78 H 95 07/25/18 00:00 07/25/18 07:00 07/25/18 04:00 07/25/18 04:00 07/25/18 04:00 Intake & Output 07/24/18 07/25/18 07/26/18 06:59 06:59 06:59 Intake Total 2146 1163 Balance 2146 1163 Weight 79.9 kg General appearance: PRESENT: no acute distress, well-developed Head exam: PRESENT: atraumatic, normocephalic Eye exam: PRESENT: conjunctiva pale. ABSENT: scleral icterus Ear exam: PRESENT: normal external ear exam Mouth exam: PRESENT: moist, tongue midline Respiratory exam: PRESENT: rales - On the left, rhonchi - Coarse on the left clear on the right, symmetrical, unlabored. ABSENT: tachypnea, wheezes Cardiovascular exam: PRESENT: RRR, +S1, +S2 GI/Abdominal exam: PRESENT: normal bowel sounds, soft. ABSENT: distended, tenderness Rectal exam: PRESENT: deferred Extremities exam: PRESENT: pedal edema, +2 edema Neurological exam: PRESENT: alert, awake, oriented to person, oriented to place, oriented to time, oriented to situation Psychiatric exam: PRESENT: normal mood. ABSENT: agitated, anxious Focused psych exam: ABSENT: delusional, restlessness Results Laboratory Results: 07/25/18 05:02 07/25/18 05:02 07/24/18 07/25/18 07/25/18 16:35 05:02 05:02 WBC 7.1 RBC 3.16 L Hgb 7.8 L Hct 24.1 L MCV 76 L MCH 24.8 L MCHC 32.5 RDW 22.7 H Plt Count 215 Sodium 130.2 L Potassium 3.3 L Chloride 98 Carbon Dioxide 25 Anion Gap 7 BUN 9 Creatinine 0.81 Est GFR ( Amer) > 60 Est GFR (Non-Af Amer) > 60 Glucose 87 Calcium 9.1 Total Bilirubin 0.4 AST 14 L ALT 12 L Alkaline Phosphatase 77 Total Protein 5.7 L Albumin 2.5 L Stool Occult Blood NEGATIVE Blood Type Antibody Screen 07/25/18 09:25 WBC RBC Hgb Hct MCV MCH MCHC RDW Plt Count Sodium Potassium Chloride Carbon Dioxide Anion Gap BUN Creatinine Est GFR ( Amer) Est GFR (Non-Af Amer) Glucose Calcium Total Bilirubin AST ALT Alkaline Phosphatase Total Protein Albumin Stool Occult Blood Blood Type A NEGATIVE Antibody Screen NEGATIVE 07/20/18 09:20 Troponin I < 0.012 Impressions: Chest CT 07/20/18 00:00 IMPRESSION: 1. Left upper lobe lung mass is larger. There is chest wall invasion with involvement of two ribs. Precarinal adenopathy. 2. Fatty liver. Cholelithiasis. Chest X-Ray 07/24/18 00:00 IMPRESSION: No pneumothorax 2 hours following left lung biopsy. Guidance Needle Placement CT 07/24/18 00:00 IMPRESSION: CT GUIDED BIOPSY OF THE left upper lobe mass PERFORMED WITHOUT IMMEDIATE COMPLICATION. PATHOLOGY PENDING. IV conscious sedation Lung Biopsy CT 07/24/18 00:00 IMPRESSION: CT GUIDED BIOPSY OF THE left upper lobe mass PERFORMED WITHOUT IMMEDIATE COMPLICATION. PATHOLOGY PENDING. IV conscious sedation Assessment and Plan - Diagnosis (1) Cancer of lung, upper lobe Qualifiers: Laterality: left Qualified Code(s): C34.12 - Malignant neoplasm of upper lobe, left bronchus or lung Is this a current diagnosis for this admission?: Yes Plan: Biopsy results provided to the patient. Dr. Piter toth will be following the patient as an outpatient. Biopsy is positive for squamous cell carcinoma. (2) EtOH dependence Qualifiers: Substance use status: uncomplicated Qualified Code(s): F10.20 - Alcohol dependence, uncomplicated Is this a current diagnosis for this admission?: Yes Plan: Continue diazepam as well as thiamine and vitamins. (3) History of DVT of lower extremity Is this a current diagnosis for this admission?: Yes Plan: Patient is now on Xarelto. (4) Hypokalemia Is this a current diagnosis for this admission?: Yes Plan: Monitor potassium level and replete as indicated. (5) Hypomagnesemia Is this a current diagnosis for this admission?: Yes Plan: Monitor magnesium level and replete as indicated. (6) Hyponatremia Is this a current diagnosis for this admission?: Yes Plan: Most likely related to the squamous cell carcinoma. Continue to monitor the sodium and if it continues to worsen we will likely introduce a fluid restriction. - Time Time Spent with patient: 15-24 minutes Medications reviewed and adjusted accordingly: Yes Anticipated discharge: Home
--- NOTE | 2018-07-27 22:34 | PDOC DISCHARGE SUMMARY ---
General - Admit/Disc Date/PCP Admission Date/Primary Care Provider: 07/20/18 11:36 Discharge Date: 07/27/18 - Discharge Diagnosis (1) Cancer of lung, upper lobe Is this a current diagnosis for this admission?: Yes Summary: Biopsy-proven squamous cell carcinoma of the lung. Follow-up with Dr. Piter toth for outpatient management. (2) EtOH dependence Is this a current diagnosis for this admission?: Yes Summary: Continue Valium as well as thiamine and multivitamins. Encourage abstinence from alcohol. (3) Anemia Is this a current diagnosis for this admission?: Yes Summary: The patient required 4 units of packed red blood cells. Oncology will follow his anemia as an outpatient. Continue vitamins and consider iron supplement. (4) History of DVT of lower extremity Is this a current diagnosis for this admission?: Yes Summary: The patient was on warfarin therapy. He did have a supratherapeutic INR and he will now be on Eliquis. (5) Hypomagnesemia Is this a current diagnosis for this admission?: Yes Summary: Serum magnesium is now normal. Follow serum magnesium level as an outpatient. (6) Hyponatremia Is this a current diagnosis for this admission?: Yes Summary: A 1.5 L fluid restriction was instituted yesterday. The hydrochlorothiazide component of his antihypertensive medication was removed. The sodium is beginning to improve. The patient will continue a fluid restriction and to use only the lisinopril. If his blood pressure increases then additional adjustments can be made as an outpatient. He will have blood work at the oncology office next week. - Additional Information Resuscitation Status: Full Code Discharge Diet: Cardiac Discharge Activity: Activity As Tolerated, Balance Activity w/Rest Prescriptions: Diazepam [Valium 2 mg Tablet] 2 mg PO Q12 PRN 7 Days #14 tablet PRN Reason: Anxiety Lisinopril 20 mg PO DAILY 30 Days #30 tablet Oxycodone HCl [Oxy-Ir 5 mg Tablet] 5 mg PO Q6HP PRN 7 Days #20 tablet PRN Reason: Potassium Chloride [Klor-Con 10 Meq Capsule ER] 20 meq PO Q12 7 Days #14 capsule.er Rivaroxaban [Xarelto] 20 mg PO DAILY 30 Days #30 tablet Home Medications: Diazepam [Valium 2 mg Tablet] 2 mg PO Q12 PRN 7 Days #14 tablet 07/27/18 Docusate Sodium [Colace 100 mg Capsule] 100 mg PO DAILY capsule 07/27/18 Folic Acid [Folvite 1 mg Tablet] 1 mg PO DAILY tablet 07/27/18 Lisinopril 20 mg PO DAILY 30 Days #30 tablet 07/27/18 Mineral Oil/Petrolatum,White [Eucerin Cream 114 gm] 1 applic TP BID jar 07/27/18 Multivitamin [Tab-A-Tiki (Multiple Vitamin) Tablet] 1 tab PO DAILY tablet 07/27/18 Nicotine [Nicoderm 21 mg/24 Hr Transderm Patch] 1 each TD DAILY patch.td24 07/27/18 Oxycodone HCl [Oxy-Ir 5 mg Tablet] 5 mg PO Q6HP PRN 7 Days #20 tablet 07/27/18 Potassium Chloride [Klor-Con 10 Meq Capsule ER] 20 meq PO Q12 7 Days #14 capsule.er 07/27/18 Rivaroxaban [Xarelto] 20 mg PO DAILY 30 Days #30 tablet 07/27/18 Thiamine HCl [Thiamine 100 mg Tablet] 100 mg PO DAILY tablet 07/27/18 History of Present Illness Patient complains of: Referred to the emergency department for supratherapeutic INR as well as hypokalemia History of Present Illness: Mikael WHEATLEY JR is a 53 year old male with a history of alcohol and tobacco dependence. He has a history of deep venous thromboses and a known mass in the left lung. He is on warfarin therapy for history of DVT. After routine blood work his primary care provider instructed him to go to the emergency department. His INR was supratherapeutic at 6.68 with hemoglobin of 6.6 as well as low potassium, elevated serum alcohol level in the left upper lobe mass that in fact have been causing increasing left upper chest pain. The patient was referred to the hospital service for admission. Hospital Course Hospital Course: The patient had multiple issues during the admission. He received 4 units of packed red blood cells by transfusion. He was placed on thiamine, multivitamins and diazepam for alcohol withdrawal prophylaxis. His serum potassium and magnesium were low and supplemented. Biopsy of the lung mass revealed squamous cell carcinoma. The patient did begin to exhibit decreasing serum sodium levels. Changes were made in his regimen as outlined above and his serum sodium level began to improve. He is stable for discharge and will be seeing Dr. Piter toth as an outpatient. Physical Exam Vital Signs: Temp Pulse Resp BP Pulse Ox 98.3 F 70 16 130/75 H 98 07/27/18 09:27 07/27/18 09:27 07/27/18 09:27 07/27/18 09:27 07/27/18 09:27 Intake & Output 07/26/18 07/27/18 07/28/18 06:59 06:59 06:59 Intake Total 2311 1078 Balance 2311 1078 Weight 79.8 kg 79.8 kg General appearance: PRESENT: no acute distress, cooperative, well-developed Eye exam: PRESENT: conjunctiva pale. ABSENT: scleral icterus Mouth exam: PRESENT: moist, tongue midline Respiratory exam: PRESENT: clear to auscultation joe, symmetrical, unlabored. ABSENT: chest wall tenderness, rales, rhonchi, tachypnea, wheezes Cardiovascular exam: PRESENT: RRR, +S1, +S2 GI/Abdominal exam: PRESENT: normal bowel sounds, soft. ABSENT: distended, tend erness Rectal exam: PRESENT: deferred Gentrourinary exam: ABSENT: indwelling catheter Extremities exam: PRESENT: pedal edema Neurological exam: PRESENT: alert, awake, oriented to person, oriented to place, oriented to time, oriented to situation Psychiatric exam: PRESENT: appropriate affect, normal mood. ABSENT: agitated, anxious Focused psych exam: ABSENT: delusional, restlessness Results Laboratory Results: 07/27/18 05:34 07/27/18 05:34 07/26/18 07/27/18 07/27/18 15:30 05:34 05:34 WBC 7.4 RBC 3.52 L Hgb 8.9 L Hct 27.5 L MCV 78 L MCH 25.3 L MCHC 32.5 RDW 24.8 H Plt Count 285 Seg Neutrophils % 62.9 Lymphocytes % 15.8 Monocytes % 16.4 H Eosinophils % 3.1 Basophils % 1.8 Absolute Neutrophils 4.7 Absolute Lymphocytes 1.2 Absolute Monocytes 1.2 Absolute Eosinophils 0.2 Absolute Basophils 0.1 Sodium 130.9 L 129.3 L Potassium 4.0 4.1 Chloride 96 L 97 L Carbon Dioxide 30 25 Anion Gap 5 7 BUN 11 10 Creatinine 0.90 0.82 Est GFR ( Amer) > 60 > 60 Est GFR (Non-Af Amer) > 60 > 60 Glucose 123 H 85 Calcium 9.6 9.5 03/28/19 09:20 Troponin I < 0.012 Impressions: Chest CT 07/20/18 00:00 IMPRESSION: 1. Left upper lobe lung mass is larger. There is chest wall invasion with involvement of two ribs. Precarinal adenopathy. 2. Fatty liver. Cholelithiasis. Chest X-Ray 07/24/18 00:00 IMPRESSION: No pneumothorax 2 hours following left lung biopsy. Guidance Needle Placement CT 07/24/18 00:00 IMPRESSION: CT GUIDED BIOPSY OF THE left upper lobe mass PERFORMED WITHOUT IMMEDIATE COMPLICATION. PATHOLOGY PENDING. IV conscious sedation Lung Biopsy CT 07/24/18 00:00 IMPRESSION: CT GUIDED BIOPSY OF THE left upper lobe mass PERFORMED WITHOUT IMMEDIATE COMPLICATION. PATHOLOGY PENDING. IV conscious sedation Venous Doppler Study 07/25/18 08:15 IMPRESSION: 1. PARTIALLY OCCLUSIVE DEEP VENOUS THROMBOSIS IN THE FEMORAL VEIN AND POPLITEAL VEIN OF THE RIGHT LEG. 2. SHORT SEGMENT SUPERFICIAL VENOUS THROMBOSIS IN THE GREATER SAPHENOUS VEIN OF THE LEFT THIGH. NO DVT IN THE LEFT LEG. Qualifiers - * PATIENT BEING DISCHARGED WITH ANY OF THE FOLLOWING DIAGNOSIS: No Plan Discharge Plan: Follow-up with oncology as well as primary care. Time Spent: Greater than 30 Minutes
== END 2018-07-27 11:45 | disposition home or self-care (01) | DRG 181 ==
LOC: ER 08:03 → INTOOBSV 11:36 → OBSVTOIN 11:36 → EH 11:36 → 4S 16:58
PROVIDERS: ADMIT Internal Medicine; ATTEND Internal Medicine
PROC: 30233N1 Transfusion of Nonautologous Red Blood Cells into Peripheral Vein, Percutaneous Approach (ICD-10-PCS; 2018-07-20)
PROC: 3E0F73Z Introduction of Anti-inflammatory into Respiratory Tract, Via Natural or Artificial Opening (ICD-10-PCS; 2018-07-21)
PROC: 30233N1 Transfusion of Nonautologous Red Blood Cells into Peripheral Vein, Percutaneous Approach (ICD-10-PCS; 2018-07-22)
PROC: 0BBG3ZX Excision of Left Upper Lung Lobe, Percutaneous Approach, Diagnostic (ICD-10-PCS; principal; 2018-07-24)
PROC: 30233N1 Transfusion of Nonautologous Red Blood Cells into Peripheral Vein, Percutaneous Approach (ICD-10-PCS; 2018-07-25)
DX: C34.12 Malignant neoplasm of upper lobe, left bronchus or lung (principal); E87.1 Hypo-osmolality and hyponatremia; F10.239 Alcohol dependence with withdrawal, unspecified; Y90.2 Blood alcohol level of 40-59 mg/100 ml; E83.42 Hypomagnesemia; I73.9 Peripheral vascular disease, unspecified; I10 Essential (primary) hypertension; K21.9 Gastro-esophageal reflux disease without esophagitis; D50.0 Iron deficiency anemia secondary to blood loss (chronic); F17.210 Nicotine dependence, cigarettes, uncomplicated; R79.1 Abnormal coagulation profile; T45.515A Adverse effect of anticoagulants, initial encounter; K59.00 Constipation, unspecified; Z91.19 Patient's noncompliance with other medical treatment and regimen; Z86.718 Personal history of other venous thrombosis and embolism; Z79.899 Other long term (current) drug therapy; Z79.01 Long term (current) use of anticoagulants; Z88.0 Allergy status to penicillin; Z82.49 Family history of ischemic heart disease and other diseases of the circulatory system; Z80.3 Family history of malignant neoplasm of breast
CPT/HCPCS: 32405; 36415; 36430; 71045; 71260; 77012; 80048; 80053; 80307; 81001; 82272; 82607; 82728; 82746; 83540; 83550; 83735; 84484; 85025; 85027; 85045; 85610; 85730; 86850; 86900; 86901; 86920; 88305; 93005; 93010; 93970; 99285; G0378; J2250; J3010; J3411; J3475; J3480; J3490; J7030; P9016; Q0138; S0164

== ENCOUNTER 2018-08-01 01:48 | Emergency (ER) | payer MEDICARE ==
[2018-08-01] MEDS ORDERED: NORMAL SALINE 1000 ML 1,000 ML IV ONE ×2 (02:31→04:50)
--- NOTE | 2018-08-01 02:37 | ER Document Report ---
ED General - General Stated Complaint: FALL Time Seen by Provider: 08/01/18 01:57 Primary Care Provider: ULICES MCGEE MD [Primary Care Provider] - Follow up as needed TRAVEL OUTSIDE OF THE [place] IN LAST 30 DAYS: No - HPI Notes: Patient is a 53-year-old male that presents to the emergency department for chief complaint of generalized fatigue and frequent falls. Patient reports just being diagnosed with lung cancer. He states he is not coping well and has been using alcohol to manage his pain. He reports drinking 5 shots of whiskey today. Patient has had multiple falls in the last 2 days. He states yesterday he fell twice and today he fell once. He states all of the falls have been related to loss of balance. He denied any injury during any of the falls. Today he was turning off the light and pivoted tripping over a chair. He states he landed on his buttocks in the chair but had a hard time getting back up. He called EMS because he was too fatigued to get back up. Patient is currently on Xarelto for history of DVT and PE. He denies any black or bloody stools. He does state he also has chronic iron deficiency anemia and has required blood transfusion recently for hemoglobin of 6.6. He denies any lightheadedness or syncope Past Medical History: Lung cancer, DVT/PE, hypertension, iron deficiency anemia Past Surgical History: Reviewed in chart Social History: Frequent heavy alcohol consumption, daily tobacco, denies drug use Family History: Reviewed and noncontributory for presenting illness Allergies: Reviewed, see documented allergy list. REVIEW OF SYSTEMS: CONSTITUTIONAL : No fever No chills No diaphoresis No recent illness Generalized weakness EENT: No vision changes No congestion No sore throat CARDIOVASCULAR: No chest pain No palpitations RESPIRATORY: No shortness of breath No cough No difficulty breathing GASTROINTESTINAL: No abdominal pain No nausea No vomiting No diarrhea GENITOURINARY: No dysuria No hematuria No difficulty urinating MUSCULOSKELETAL: No back pain No leg pain No arm pain SKIN: No rashes No lesions LYMPHATIC: No swollen, enlarged glands. NEUROLOGICAL: No lightheadedness No headache No weakness No paresthesias PSYCHIATRIC: No anxiety No depression PHYSICAL EXAMINATION: Vital signs reviewed, nursing noted reviewed. GENERAL: Appears intoxicated g, well-nourished and in no acute distress. HEAD: Atraumatic, normocephalic. EYES: Eyes appear normal, extraocular movements intact, sclera anicteric, conjunctiva are pale ENT: nares patent, oropharynx clear without exudates. Dry mucous membranes. NECK: Normal range of motion, supple without lymphadenopathy LUNGS: Breath sounds clear to auscultation bilaterally and equal. No wheezes rales or rhonchi. HEART: Regular rate and rhythm without murmurs ABDOMEN: Soft, nontender, normoactive bowel sounds. No rebound, guarding, or rigidity. No masses appreciated. EXTREMITIES: Clubbing of fingers, nontender, good range of motion, bilateral +2 pitting edema in the lower extremity with chronic venous stasis NEUROLOGICAL: No focal neurological deficits. Moves all extremities spontaneously Motor and sensory grossly intact on exam. PSYCH: Normal mood, normal affect. SKIN: Warm, Dry, normal turgor, venous stasis color changes to bilateral lower extremities - Related Data Allergies/Adverse Reactions: Penicillins Allergy (Verified 07/20/18 08:05) Past Medical History - Social History Smoking Status: Current Every Day Smoker Family History: Hypertension, Malignancy - Past Medical History Cardiac Medical History: Reports: Hx Hypertension, Hx Peripheral Vascular Disease Pulmonary Medical History: Reports: Hx Pneumonia Neurological Medical History: Denies: Hx Migraine, Hx Seizures Endocrine Medical History: Denies: Hx Diabetes Mellitus Type 2, Hx Hyperthy roidism, Hx Hypothyroidism Renal/ Medical History: Denies: Hx End Stage Renal Disease, Hx Peritoneal Dialysis GI Medical History: Reports: Hx Gastroesophageal Reflux Disease Traumatic Medical History: Denies: Hx Gunshot Wound, Hx Traumatic Brain Injury Past Surgical History: Reports: Other - Bronchoscopy x2 Physical Exam - Vital signs Vitals: Temp Pulse Resp BP Pulse Ox 97.4 F 97 17 117/65 93 08/01/18 01:58 08/01/18 01:58 08/01/18 01:58 08/01/18 01:58 08/01/18 01:58 Course - Re-evaluation Re-evalutation: 08/01/18 02:35 Vitals reviewed. Nursing notes reviewed. Patient has no signs of acute injury from his recent falls. He denies any head injury and can describe his falls accurately. He does have a history of anemia and appears pale. Blood work will be obtained. Patient given IV hydration. 08/01/18 04:57 Patient reevaluated. His hemoglobin is 9.9 which is improved from his previous hospitalization. He has no signs of active bleeding. Patient does have a hyponatremia at 127. Chart review shows he was 129 and he left the hospital. Patient has been drinking alcohol and is dehydrated. He received 2 L normal saline bolus in the emergency room. His x-ray is consistent with his new diagnosis of lung cancer with no other acute process. I did offer admission to the hospital for monitoring of his hyponatremia and referral to rehab given his recent falls. Patient does not wish to be readmitted to the hospital. He would like to be discharged home. He has an appointment with Dr. Garibay on 08/08/18 which he will keep. Patient has capacity to make decisions and is clinically sober. He is able to ambulate. Patient will be discharged home in stable condition with close outpatient follow-up. He was counseled on return precautions and verbalized understanding. Laboratory 08/01/18 08/01/18 08/01/18 03:10 03:10 03:10 WBC 10.6 H RBC 3.83 L Hgb 9.9 L Hct 30.2 L MCV 79 L MCH 25.8 L MCHC 32.7 RDW 27.7 H Plt Count 435 Total Counted 100 Seg Neutrophils % Not Reportable Seg Neuts % (Manual) 89 H Band Neutrophils % 1 L Lymphocytes % Not Reportable Lymphocytes % (Manual) 5 L Monocytes % Not Reportable Monocytes % (Manual) 2 L Eosinophils % Not Reportable Eosinophils % (Manual) 1 Basophils % Not Reportable Basophils % (Manual) 2 Absolute Neutrophils Not Reportable Abs Neuts (Manual) 9.5 H Absolute Lymphocytes Not Reportable Abs Lymphs (Manual) 0.5 Absolute Monocytes Not Reportable Abs Monocytes (Manual) 0.2 Absolute Eosinophils Not Reportable Absolute Eos (Manual) 0.1 Absolute Basophils Not Reportable Abs Basophils (Manual) 0.2 Toxic Granulation 2+ Platelet Comment ADEQUATE Poikilocytosis 3+ Anisocytosis 3+ Tear Drop Cells 1+ Ovalocytes 2+ Ajith Cells SLIGHT Schistocytes SLIGHT Sodium 127.6 L Potassium 4.3 Chloride 96 L Carbon Dioxide 19 L Anion Gap 13 BUN 6 L Creatinine 0.76 Est GFR ( Amer) > 60 Est GFR (Non-Af Amer) > 60 Glucose 90 Calcium 9.1 Total Bilirubin 0.2 Direct Bilirubin 0.2 Neonat Total Bilirubin Not Reportable Neonat Direct Bilirubin Not Reportable Neonat Indirect Bili Not Reportable AST 24 ALT 18 L Alkaline Phosphatase 96 Troponin I < 0.012 Total Protein 6.5 Albumin 3.1 L Chest X-Ray 08/01/18 02:30 IMPRESSION: Persistent left upper lobe mass most likely representing malignancy. Please correlate with patient's prior imaging and prior biopsy results. - Vital Signs Vital signs: Temp Pulse Resp BP Pulse Ox 97.4 F 97 17 117/65 93 08/01/18 01:58 08/01/18 01:58 08/01/18 01:58 08/01/18 01:58 08/01/18 01:58 - Laboratory Result Diagrams: 08/01/18 03:10 08/01/18 03:10 Laboratory results interpreted by me: 08/01/18 08/01/18 03:10 03:10 WBC 10.6 H RBC 3.83 L Hgb 9.9 L Hct 30.2 L MCV 79 L MCH 25.8 L RDW 27.7 H Seg Neuts % (Manual) 89 H Band Neutrophils % 1 L Lymphocytes % (Manual) 5 L Monocytes % (Manual) 2 L Abs Neuts (Manual) 9.5 H Sodium 127.6 L Chloride 96 L Carbon Dioxide 19 L BUN 6 L ALT 18 L Albumin 3.1 L - EKG Interpretation by Me Additional EKG results interpreted by me: 08/01/18 02:54 Interpreted by myself [id number]: Normal sinus rhythm, rate 93, borderline left axis, no STEMI, no significant change from 07/20/18 Discharge - Discharge Clinical Impression: Hyponatremia Alcohol intoxication Qualifiers: Complication of substance-induced condition: uncomplicated Qualified Code(s): F 10.920 - Alcohol use, unspecified with intoxication, uncomplicated Falls Qualifiers: Encounter type: initial encounter Qualified Code(s): W19.XXXA - Unspecified fall, initial encounter Condition: Stable Disposition: HOME, SELF-CARE Instructions: Hyponatremia ([facility]), Chronic Alcoholism ([facility]) Additional Instructions: Please return to the emergency department if you have any worsening, or concern of your symptoms. Please return to the emergency department if you develop chest pain, difficulty breathing, severe abdominal pain, or ongoing vomiting. Please follow-up with your primary care physician in 2-3 days and any other recommended physicians. If prescribed, take all medications as directed. If you have any questions or concerns do not hesitate to return the emergency department for evaluation. Your sodium levels were low today. You need to increase the amount of water you are drinking at home. Referrals: ULICES CMGEE MD [Primary Care Provider] - Follow up in 3-5 days
[2018-08-01 03:32] LABS: HEMATOCRIT 30.2 % (37.9-51.0); HEMOGLOBIN 9.9 g/dL (13.5-17.0); MEAN CORPUSCULAR HEMOGLOBIN 25.8 pg (27.0-33.4); MEAN CORPUSCULAR HGB CONC 32.7 g/dL (32.0-36.0); MEAN CORPUSCULAR VOLUME 79 fl (80-97); PLATELET COUNT 435 10^3/uL (150-450); RED BLOOD COUNT 3.83 10^6/uL (4.35-5.55); RED CELL DISTRIBUTION WIDTH 27.7 % (11.5-14.0); WHITE BLOOD COUNT 10.6 10^3/uL (4.0-10.5)
[2018-08-01 03:49] LABS: ALANINE AMINOTRANSFERASE 18 U/L (21-72); ALBUMIN 3.1 g/dL (3.5-5.0); ALKALINE PHOSPHATASE 96 U/L (38-126); ANION GAP 13 (5-19); ASPARTATE AMINO TRANSFERASE 24 U/L (17-59); BILIRUBIN,DIRECT 0.2 mg/dL (0.0-0.4); BILIRUBIN,TOTAL 0.2 mg/dL (0.2-1.3); BLOOD UREA NITROGEN 6 mg/dL (7-20); CALCIUM 9.1 mg/dL (8.4-10.2); CARBON DIOXIDE 19 mmol/L (22-30); CHLORIDE 96 mmol/L (98-107); GLUCOSE 90 mg/dL (75-110); POTASSIUM 4.3 mmol/L (3.6-5.0); SODIUM 127.6 mmol/L (137-145); TOTAL PROTEIN 6.5 g/dL (6.3-8.2)
[2018-08-01 04:30] LABS: ABSOLUTE LYMPHOCYTES# (MANUAL) 0.5 10^3/uL (0.5-4.7); ABSOLUTE MONOCYTES # (MANUAL) 0.2 10^3/uL (0.1-1.4); ABSOLUTE NEUTROPHILS# (MANUAL) 9.5 10^3/uL (1.7-8.2); BAND NEUTROPHILS % (MANUAL) 1 % (3-5); BASOPHILS % (MANUAL) 2 % (0-2); EOSINOPHILS % (MANUAL) 1 % (0-6); LYMPHOCYTES % (MANUAL) 5 % (13-45); MONOCYTES % (MANUAL) 2 % (3-13); SEGMENTED NEUTROPHILS % (MAN) 89 % (42-78); TOTAL CELLS COUNTED 100
[2018-08-01 04:33] LABS: ANISOCYTOSIS 3+; BURR CELLS SLIGHT; OVALOCYTES 2+; POIKILOCYTOSIS 3+; TOXIC GRANULATION 2+
[2018-08-01 04:34] LABS: PLATELET COMMENT ADEQUATE; SCHISTOCYTES SLIGHT; TEAR DROP CELLS 1+
--- NOTE | 2018-08-01 04:40 | RADIOLOGY REPORT (SQ) ---
Chest single view on 08/01/2018 at 4:22 AM CLINICAL INDICATION: Chest pain after fall COMPARISON: 07/24/2018 FINDINGS: There remains left upper lobe mass most consistent with malignancy, please correlate with prior imaging and tissue diagnosis. Lungs are otherwise clear. Cardiac, hilar and mediastinal contours are within normal limits. Pulmonary vascularity is within normal limits. IMPRESSION: Persistent left upper lobe mass most likely representing malignancy. Please correlate with patient's prior imaging and prior biopsy results.
[2018-08-01 05:30] VITALS: BP 128/73
--- NOTE | 2018-08-01 23:58 | EKG REPORT ---
SEVERITY:- ABNORMAL ECG - SINUS RHYTHM ABNRM R PROG, CONSIDER ASMI OR LEAD PLACEMENT : Confirmed by: Harvinder Tilley 01-Aug-2018 23:57:09
== END 2018-08-01 06:25 | disposition home or self-care (01) ==
LOC: ER 01:48
DX: E87.1 Hypo-osmolality and hyponatremia (principal); F10.920 Alcohol use, unspecified with intoxication, uncomplicated; F17.200 Nicotine dependence, unspecified, uncomplicated; C34.90 Malignant neoplasm of unspecified part of unspecified bronchus or lung; W19.XXXA Unspecified fall, initial encounter; I10 Essential (primary) hypertension; Z88.0 Allergy status to penicillin; Z86.718 Personal history of other venous thrombosis and embolism; Z79.01 Long term (current) use of anticoagulants
CPT/HCPCS: 93005; 99284; 96360; 36415; 85025; 80053; 84484; 71045; 93010; J7030

== ENCOUNTER → 2018-08-27 | Outpatient (CLI) | payer MEDICARE ==
--- NOTE | 2018-08-28 09:47 | RADIOLOGY REPORT (SQ) ---
EXAM DESCRIPTION: PET CT SKULL/THIGH COMPLETED DATE/TIME: 08/28/2018 9:16 am REASON FOR STUDY: C34.12 MALIGNANT NEOPLASM OF UPPER LOBE, LEFT BRONCHUS OR LUNG C34.12 MALIGNANT N EOPLASM OF UPPER LOBE, LEFT BRONCHUS OR BALBIR COMPARISON: None. RADIONUCLIDE AND DOSE: 11.08 mCi F18 FDG The route of agent administration: Intravenous FASTING BLOOD SUGAR: 130 mg/dl CONTRAST TYPE AND DOSE: No CT contrast given. TECHNIQUE: Blood glucose level was verified. Above dose of FDG was injected intravenously. 2-D seg mented attenuation correction images were obtained from the base of the skull to the midthighs. Nonc ontrast CT images were obtained for attenuation correction and fusion with emission images. CT image s were performed without oral or intravenous contrast and are not sensitive for parenchymal lesions. A series of overlapping emission PET images were obtained. Images reviewed and manipulated at [facility] work station by the radiologist. Images stored on PACS. LIMITATIONS: None. FINDINGS: HEAD AND NECK: No areas of abnormal metabolic activity in the soft tissues of the head and neck. CHEST: 9 cm mass left upper lobe measuring 18 SUV. 1.7 cm level 4 node measuring 9.8 SUV. 1.5 cm 10 R node measuring 5.8 SUV. ABDOMEN AND PELVIS: No areas of abnormal metabolic activity in the abdomen or pelvis. Expected physi ologic activity is present in the genitourinary system and bowel. PROXIMAL LOWER EXTREMITIES: No areas of abnormal metabolic activity in the soft tissues of the lower extremities. BONES: Hypermetabolic activity associated with chest wall invasion/rib destruction left upper lobe ma ss. ADDITIONAL CT FINDINGS: Cholelithiasis. OTHER: No other significant findings. IMPRESSION: Hypermetabolic left upper lobe mass. Hypermetabolic mediastinal and hilar lymph nodes. TECHNICAL DOCUMENTATION: JOB ID: [id number] [employer]- All Rights Reserved Reading location - IP/workstation name: [email or web address]
== END ==
LOC: RAD 17:22
PROVIDERS: ATTEND Internal Medicine
DX: C34.12 Malignant neoplasm of upper lobe, left bronchus or lung (principal)
CPT/HCPCS: 78815; A9552

== ENCOUNTER → 2018-09-04 | Outpatient (CLI) | payer MEDICARE ==
--- NOTE | 2018-09-04 16:25 | RADIOLOGY REPORT (SQ) ---
EXAM DESCRIPTION: MRI HEAD COMBO COMPLETED DATE/TIME: 09/04/2018 4:09 pm REASON FOR STUDY: C34.12 MALIGNANT NEOPLASM OF UPPER LOBE, LEFT BRONCHUS OR LUNG C34.12 MALIGNANT N EOPLASM OF UPPER LOBE, LEFT BRONCHUS OR BALBIR COMPARISON: None. TECHNIQUE: Multiplanar imaging includes noncontrasted T1, T2, FLAIR, diffusion with ADC map and post gadolinium contrast T1 sequences. Images stored on PACS. CONTRAST TYPE AND DOSE: 10 mL Dotarem. RENAL FUNCTION: Not indicated. ACR Type II contrast agent associated with few, if any, unconfounded cases of NSF LIMITATIONS: None. FINDINGS: ANATOMY: No anomalies. Normal vascular flow voids. Pituitary fossa normal. CSF SPACES: Normal in size and contour. No hemorrhage. CEREBRUM: Sulci and gyri normal in size and contour. Normal white matter signal on FLAIR imaging. No evidence of hemorrhage, mass, or extraaxial fluid collection. No abnormal enhancement post contrast. POSTERIOR FOSSA: No signal alteration. No hemorrhage. No edema, masses, or mass effect. Internal ame tory canals, cerebellopontine angles, normal. Small amount of fluid left mastoids. No enhancing lesi ons. No abnormal enhancement post contrast. DIFFUSION IMAGING: Negative for acute or subacute infarction. ORBITS: No masses. Globes normal. PARANASAL SINUSES: No fluid levels. Mucosa normal. OTHER: No other significant finding. IMPRESSION: No evidence of metastatic disease. EVIDENCE OF ACUTE STROKE: NO. TECHNICAL DOCUMENTATION: JOB ID: [id number] [employer]- All Rights Reserved Reading location - IP/workstation name: [email or web address]
== END ==
LOC: RAD 15:20
PROVIDERS: ATTEND Internal Medicine
DX: C34.12 Malignant neoplasm of upper lobe, left bronchus or lung (principal)
CPT/HCPCS: 70553; A9576

== ENCOUNTER 2018-09-20 11:09 | Inpatient (IN) | payer MEDICARE ==
--- NOTE | 2018-09-20 11:45 | ER Document Report ---
ED Medical Screen (RME) - General Chief Complaint: Fever Stated Complaint: WEAKNESS Time Seen by Provider: 09/20/18 11:32 Primary Care Provider: BERNARD FRANKEL PA-C [Primary Care Provider] - Follow up as needed Mode of Arrival: Ambulatory Information source: Patient Notes: 53-year-old male presented to ED for possible sepsis. He was sent by his primary care provider. Patient has a history of stage III lung cancer recent chemo temperature 101 in the clinic hemoglobin 6.7 with an tachycardic. He will have blood urine x-rays and evaluated for sepsis. She is alert oriented respirations regular and unlabored. He states she does not feel any different from normal he is just tired and weak. I have greeted and performed a rapid initial assessment of this patient. A comprehensive ED assessment and evaluation of the patient, analysis of test results and completion of medical decision making process will be conducted by an additional ED providers. Dictation of this chart was performed using voice recognition software; therefore, there may be some unintended grammatical errors. TRAVEL OUTSIDE OF THE [place] IN LAST 30 DAYS: No - Related Data Allergies/Adverse Reactions: Penicillins Allergy (Verified 09/20/18 11:13) Past Medical History - Social History Frequency of alcohol use: Heavy Drug Abuse: None - Past Medical History Cardiac Medical History: Reports: Hx Hypertension, Hx Peripheral Vascular Disease Pulmonary Medical History: Reports: Hx Pneumonia Neurological Medical History: Denies: Hx Migraine, Hx Seizures Endocrine Medical History: Denies: Hx Diabetes Mellitus Type 2, Hx Hyperthyroidism, Hx Hypothyroidism Renal/ Medical History: Denies: Hx End Stage Renal Disease, Hx Peritoneal Dialysis GI Medical History: Reports: Hx Gastroesophageal Reflux Disease Traumatic Medical History: Denies: Hx Gunshot Wound, Hx Traumatic Brain Injury Past Surgical History: Reports: Other - Bronchoscopy x2 - Immunizations History of Influenza Vaccine for 01/2017 - 06/2017 Season: Refused Physical Exam - Vital signs Vitals: Temp Pulse Resp BP Pulse Ox 100.5 F H 138 H 18 120/58 L 100 09/20/18 11:18 09/20/18 11:18 09/20/18 11:18 09/20/18 11:18 09/20/18 11:18 Course - Vital Signs Vital signs: Temp Pulse Resp BP Pulse Ox 100.5 F H 138 H 18 120/58 L 100 09/20/18 11:18 09/20/18 11:18 09/20/18 11:18 09/20/18 11:18 09/20/18 11:18 Doctor's Discharge - Discharge Referrals: BERNARD FRANKEL PA-C [Primary Care Provider] - Follow up as needed
[2018-09-20 12:13] LABS: VENOUS BLOOD BASE EXCESS -2.2 mmol/L; VENOUS BLOOD HCO3 22.2 mmol/L (20-32); VENOUS BLOOD PCO2 36.1 mmHg (35-63); VENOUS BLOOD PH 7.41 (7.30-7.42)
[2018-09-20 12:18] LABS: ABSOLUTE LYMPHOCYTES (AUTO) 0.1 10^3/uL (0.5-4.7); ABSOLUTE MONOCYTES (AUTO) 0.1 10^3/uL (0.1-1.4); ABSOLUTE NEUT (AUTO) 0.1 10^3/uL (1.7-8.2); BASOPHILS % (AUTO) 1.9 % (0-2); EOSINOPHILS % (AUTO) 7.4 % (0-6); HEMATOCRIT 20.1 % (37.9-51.0); LYMPHOCYTES % (AUTO) 41.9 % (13-45); MEAN CORPUSCULAR HEMOGLOBIN 28.8 pg (27.0-33.4); MEAN CORPUSCULAR HGB CONC 33.5 g/dL (32.0-36.0); MEAN CORPUSCULAR VOLUME 86 fl (80-97); MONOCYTES % (AUTO) 23.2 % (3-13); RED BLOOD COUNT 2.33 10^6/uL (4.35-5.55); RED CELL DISTRIBUTION WIDTH 24.1 % (11.5-14.0); SEGMENTED NEUTROPHILS % (AUTO) 25.6 % (42-78); TOTAL CELLS COUNTED % (AUTO) 100 %
[2018-09-20 12:20] LABS: INTERNATIONAL RATION (INR) 1.03
--- NOTE | 2018-09-20 12:29 | RADIOLOGY REPORT (SQ) ---
EXAM DESCRIPTION: CHEST 2 VIEWS COMPLETED DATE/TIME: 09/20/2018 12:16 pm REASON FOR STUDY: Possible sepsis COMPARISON: None. EXAM PARAMETERS: NUMBER OF VIEWS: two views TECHNIQUE: Digital Frontal and Lateral radiographic views of the chest acquired. RADIATION DOSE: NA LIMITATIONS: none FINDINGS: LUNGS AND PLEURA: Left upper lobe lung mass now shows eccentric cavitation. MEDIASTINUM AND HILAR STRUCTURES: No masses or contour abnormalities. HEART AND VASCULAR STRUCTURES: Heart normal size. No evidence for failure. BONES: No acute findings. HARDWARE: None in the chest. OTHER: No other significant finding. IMPRESSION: Persistent left upper lobe lung mass narrow shows cavitation. No acute infiltrate. TECHNICAL DOCUMENTATION: JOB ID: [id number] [employer]- All Rights Reserved Reading location - IP/workstation name: [email or web address]
[2018-09-20] MEDS: NORMAL SALINE 1000 ML 1,000 ML IV PRN ×2 (12:30→17:47)
[2018-09-20 12:32] LABS: ALANINE AMINOTRANSFERASE 13 U/L (21-72); ALBUMIN 2.9 g/dL (3.5-5.0); ALKALINE PHOSPHATASE 81 U/L (38-126); ANION GAP 15 (5-19); ASPARTATE AMINO TRANSFERASE 14 U/L (17-59); BILIRUBIN,DIRECT 0.4 mg/dL (0.0-0.4); BILIRUBIN,TOTAL 0.6 mg/dL (0.2-1.3); BLOOD UREA NITROGEN 31 mg/dL (7-20); CARBON DIOXIDE 21 mmol/L (22-30); CHLORIDE 102 mmol/L (98-107); GLUCOSE 88 mg/dL (75-110); POTASSIUM 3.5 mmol/L (3.6-5.0); SODIUM 138.3 mmol/L (137-145); TOTAL PROTEIN 6.1 g/dL (6.3-8.2)
[2018-09-20 12:41] LABS: CALCIUM 6.8 mg/dL (8.4-10.2)
[2018-09-20] MEDS ORDERED: CALCIUM GLUCONATE 1000 MG/10 ML INJ IV ONE (12:47)
[2018-09-20 12:53] LABS: PLATELET COUNT 48 10^3/uL (150-450)
[2018-09-20 12:57] LABS: HEMOGLOBIN 6.7 g/dL (13.5-17.0); WHITE BLOOD COUNT 0.3 10^3/uL (4.0-10.5)
[2018-09-20 12:59] LABS: ANISOCYTOSIS 2+; HYPOCHROMASIA 2+
[2018-09-20 13:01] LABS: PLATELET COMMENT DECREASED
[2018-09-20] MEDS ORDERED: MEROPENEM 1 GM VIAL IV ONE (13:51)
[2018-09-20] MEDS ORDERED: NORMAL SALINE 250 ML IV PRN (13:53)
[2018-09-20] MEDS ORDERED: VANCOMYCIN HCL INJ 1000 MG VIAL IV ONE (13:58)
--- NOTE | 2018-09-20 14:06 | ER Document Report ---
ED General - General Chief Complaint: Fever Stated Complaint: WEAKNESS Time Seen by Provider: 09/20/18 11:32 Primary Care Provider: BERNARD FRANKEL PA-C [ALLIED HEALTH PROFESSIONAL] - Follow up as needed Mode of Arrival: Ambulatory TRAVEL OUTSIDE OF THE [place] IN LAST 30 DAYS: No - HPI Notes: Patient is a 53-year-old dominant with a history of stage IV lung cancer, currently receiving chemotherapy, who presents to the emergency department for evaluation. He went to have his second chemo treatment today. On arrival he found him to be febrile and tachycardic, so they sent to the emergency department. Patient states he is felt extremely weak. He has had some diarrhea. Otherwise he has a minimal cough, no worse than what his normal is. He denies any drainage or redness to his skin. No dental pain. No nausea or vomiting. Mildly diminished appetite, which again is not new. - Related Data Allergies/Adverse Reactions: Penicillins Allergy (Verified 09/20/18 11:13) Past Medical History - General Information source: Patient - Social History Smoking Status: Current Every Day Smoker Frequency of alcohol use: Heavy Drug Abuse: None Family History: Hypertension, Malignancy - Mother with breast cancer Patient has suicidal ideation: No Patient has homicidal ideation: No - Past Medical History Cardiac Medical History: Reports: Hx Hypertension, Hx Peripheral Vascular Disease Pulmonary Medical History: Reports: Hx Pneumonia Neurological Medical History: Denies: Hx Migraine, Hx Seizures Endocrine Medical History: Denies: Hx Diabetes Mellitus Type 2, Hx Hyperthyroidism, Hx Hypothyroidism Renal/ Medical History: Denies: Hx End Stage Renal Disease, Hx Peritoneal Dialysis GI Medical History: Reports: Hx Gastroesophageal Reflux Disease Traumatic Medical History: Denies: Hx Gunshot Wound, Hx Traumatic Brain Injury Past Surgical History: Reports: Other - Bronchoscopy x2 Review of Systems - Review of Systems Constitutional: See HPI EENT: No symptoms reported Cardiovascular: No symptoms reported Respiratory: No symptoms reported Gastrointestinal: See HPI Genitourinary: No symptoms reported Musculoskeletal: No symptoms reported Skin: No symptoms reported Neurological/Psychological: No symptoms reported Physical Exam - Vital signs Vitals: Temp Pulse Resp BP Pulse Ox 100.5 F H 138 H 18 120/58 L 100 09/20/18 11:18 09/20/18 11:18 09/20/18 11:18 09/20/18 11:18 09/20/18 11:18 - Notes Notes: 53-year-old gentleman, appears stated age in no acute distress. Vital signs reviewed, please refer to chart. Head is normocephalic, atraumatic. Pupils equal round, reactive to light. Neck is supple without meningismus. Heart is regular rate and rhythm. Lungs reveal diminished breath sounds without wheezes, rales, rhonchi. Abdomen is soft, nontender, normoactive bowel sounds throughout. Extremities without cyanosis, clubbing. Appearing skin changes to bilateral lower extremities. Posterior calves are nontender. Peripheral pulses are equal. Skin is warm and dry. Patient is awake, alert, neurological exam is nonfocal. Course - Re-evaluation Re-evalutation: 09/20/18 14:03 Patient presents to the emergency department for evaluation. He has stage III cancer. He is febrile and tachycardic upon arrival. His lactate is normal. Laboratory investigations revealed leukopenia, anemia, hypocalcemia, hypomagnesemia. Patient was administered calcium. He was administered magnesium. He was given vancomycin and Merrem to cover for his neutropenic fever. No obvious source has been found. He is 2 units of packed red blood cells ordered. I spoke with Dr. Chavez, who agrees that the patient is admitted to the hospital. He will see the patient in consult. Awaiting conversation with Dr. Puente regarding acceptance of this patient. 09/20/18 14:04 - Vital Signs Vital signs: Temp Pulse Resp BP Pulse Ox 100.5 F H 138 H 18 120/58 L 100 09/20/18 11:18 09/20/18 11:18 09/20/18 11:18 09/20/18 11:18 09/20/18 11:18 - Laboratory Result Diagrams: 09/20/18 11:58 09/20/18 11:58 Laboratory results interpreted by me: 09/20/18 09/20/18 09/20/18 11:58 11:58 11:58 WBC 0.3 L* RBC 2.33 L Hgb 6.7 L Hct 20.1 L RDW 24.1 H Plt Count 48 L Seg Neutrophils % 25.6 L Monocytes % 23.2 H Eosinophils % 7.4 H Absolute Neutrophils 0.1 L Absolute Lymphocytes 0.1 L Potassium 3.5 L Carbon Dioxide 21 L BUN 31 H Creatinine 1.68 H Est GFR ( Amer) 52 L Est GFR (Non-Af Amer) 43 L Calcium 6.8 L* Magnesium AST 14 L ALT 13 L Total Protein 6.1 L Albumin 2.9 L Crossmatch See Detail 09/20/18 11:58 WBC RBC Hgb Hct RDW Plt Count Seg Neutrophils % Monocytes % Eosinophils % Absolute Neutrophils Absolute Lymphocytes Potassium Carbon Dioxide BUN Creatinine Est GFR ( Amer) Est GFR (Non-Af Amer) Calcium Magnesium 0.7 L* AST ALT Total Protein Albumin Crossmatch - Diagnostic Test Radiology reviewed: Reports reviewed Radiology results interpreted by me: 09/20/18 14:05 Chest X-Ray 09/20/18 11:43 IMPRESSION: Persistent left upper lobe lung mass narrow shows cavitation. No acute infiltrate. - EKG Interpretation by Me Additional EKG results interpreted by me: 09/20/18 14:05 Sinus mechanism with a rate of 96 bpm. PVCs and PACs noted. Normal axis and intervals, no acute ST changes concerning for ischemia or infarction. Critical Care Note - Critical Care Note Total time excluding time spent on procedures (mins): 20 Discharge - Discharge Clinical Impression: Neutropenic fever, Sepsis, Hypomagnesemia, Hypocalcemia Condition: Stable Disposition: ADMITTED INPATIENT Admitting Provider: Kwame (Hospitalist) - Bushra Perera NP Unit Admitted: IMCU Referrals: BERNARD FRANKEL PA-C [ALLIED HEALTH PROFESSIONAL] - Follow up as needed
[2018-09-20] MEDS ORDERED: ONDANSETRON 4 MG TAB.RAPDIS PO PRN (15:18)
[2018-09-20] MEDS ORDERED: ACETAMINOPHEN 325 MG TABLET PO PRN (15:18)
[2018-09-20] MEDS ORDERED: OXYCODONE-ACETAMINOPHEN 5-325 MG TABLET PO PRN (15:18)
[2018-09-20] MEDS ORDERED: ACETAMINOPHEN 325 MG TABLET ONE (15:43)
[2018-09-20] MEDS: MAGNESIUM SULFATE/D5W 1 GM/100 ML RTUPB IV SCH ×3 (15:45→20:07)
--- NOTE | 2018-09-20 16:50 | PDOC H&P ---
History of Present Illness Admission Date/PCP: 09/20/18 14:25 GRETA CEDILLO PA-C Patient complains of: ABNORMAL LABS History of Present Illness: Mikael WHEATLEY II is a 53 year old male with a PMH significant for left upper lobe lung mass (undergoing chemotherapy, first treatment 09/12/2018), multiple DVTs/PE, on chronic Xarelto, chronic anemia, tobacco dependence, alcohol dependence. The patient reports he went to Dr. Millard's office for " IVF infusion." Upon arrival to the facility, the patient was noted to be tachycardic, febrile (unknown temperature), and laboratory studies indicative of leukopenia and significant anemia. The patient was sent to [facility] emergency department by his oncologist. Upon arrival to the ED, EKG reveals sinus tachycardia, no evidence of ischemia or infarction. CXR reveals left upper lobe lung mass, now showing cavitation. No acute infiltrate. Laboratory studies reveal leukopenia (WBC 0.3), anemia (Hgb 6.7), cytopenia (platelets 48k), hypocalcemia (Ca 6.3) and hypomagnesemia (MG 0.7). Upon assessment, patient is resting comfortably in bed on room air. He denies any symptoms of fever, chills, malaise, nausea or vomiting. The patient endorses symptoms of profound weakness and "0 energy "for the last "few weeks."Additionally, the patient states he has been experiencing intermittent diarrhea for the last week, since his initial chemotherapy treatment. In the emergency department, the patient received meropenem and vancomycin IV for empiric treatment of his neutropenic fever. Additionally, the patient received 2 U PRBC for his Hgb of 6.7. Plan to admit to hospitalist service for neutropenic fever and anemia. Oncology has been consulted. Past Medical History Cardiac Medical History: Reports: Peripheral Vascular Disease Pulmonary Medical History: Reports: Pneumonia Neurological Medical History: Denies: Migraine, Seizures Endocrine Medical History: Denies: Diabetes Mellitus Type 2, Hyperthyroidism, Hypothyroidism Renal/ Medical History: Denies: End Stage Renal Disease GI Medical History: Reports: Gastroesophageal Reflux Disease Traumatic Medical History: Denies: Gunshot Wound, Traumatic Brain Injury Hematology: Reports: Anemia Denies: Bleeding Tendencies Past Surgical History Past Surgical History: Reports: Other - Bronchoscopy x2 Social History Information Source: Patient Lives with: Alone Smoking Status: Current Every Day Smoker Number of Years Smokin Frequency of Alcohol Use: Heavy - 8 SHOTS OF LIQUOR PER DAY Hx Recreational Drug Use: No Drugs: None Hx Prescription Drug Abuse: No - Advance Directive Resuscitation Status: Full Code Family History Family History: Hypertension, Malignancy - Mother with breast cancer Parental Family History Reviewed: Yes Children Family History Reviewed: NA Sibling(s) Family History Reviewed.: NA Medication/Allergy Home Medications: Potassium Chloride 20 meq PO DAILY 09/20/18 Rivaroxaban [Xarelto] 20 mg PO DAILY 09/20/18 Allergies/Adverse Reactions: Penicillins Allergy (Verified 09/20/18 11:13) Review of Systems Constitutional: PRESENT: weakness Eyes: ABSENT: visual disturbances Ears: ABSENT: hearing changes Nose, Mouth, and Throat: ABSENT: mouth pain, sore throat Cardiovascular: PRESENT: edema - LOWER EXTREMITIES. ABSENT: palpitations Respiratory: ABSENT: dyspnea, hemoptysis Gastrointestinal: PRESENT: diarrhea - INCONTINENT OF STOOL INTERMITTENTLY X 1 WK Genitourinary: ABSENT: dysuria Musculoskeletal: PRESENT: deformity, joint swelling - LOWER EXTREMITIES Integumentary: ABSENT: diaphoresis Neurological: PRESENT: weakness. ABSENT: confusion, syncope Psychiatric: ABSENT: anxiety Endocrine: ABSENT: cold intolerance, heat intolerance Hematologic/Lymphatic: PRESENT: easy bruising Physical Exam Vital Signs: Temp Pulse Resp BP Pulse Ox 101.6 F H 99 31 H 116/76 95 09/20/18 15:20 09/20/18 15:20 09/20/18 15:20 09/20/18 15:20 09/20/18 15:20 Intake & Output 09/19/18 09/20/18 09/21/18 06:59 06:59 06:59 Intake Total 0 Balance 0 Weight 65.4 kg General appearance: PRESENT: thin Head exam: PRESENT: atraumatic Eye exam: PRESENT: conjunctiva pale, PERRLA Mouth exam: PRESENT: moist, tongue midline Teeth exam: PRESENT: poor dentation Neck exam: PRESENT: full ROM Respiratory exam: PRESENT: clear to auscultation joe, decreased breath sounds - RML RLL, symmetrical, unlabored Cardiovascular exam: PRESENT: RRR, tachycardia Pulses: PRESENT: normal radial pulses Vascular exam: PRESENT: pallor GI/Abdominal exam: PRESENT: normal bowel sounds, soft. ABSENT: distended, tenderness Rectal exam: PRESENT: deferred Extremities exam: PRESENT: full ROM, pedal edema - SEVERE Musculoskeletal exam: PRESENT: full ROM Neurological exam: PRESENT: alert, awake, oriented to person, oriented to place, oriented to time, oriented to situation Psychiatric exam: PRESENT: appropriate affect Skin exam: PRESENT: pallor Results Laboratory Results: 09/20/18 11:58 09/20/18 11:58 09/20/18 09/20/18 09/20/18 11:58 11:58 11:58 WBC 0.3 L* RBC 2.33 L Hgb 6.7 L Hct 20.1 L MCV 86 MCH 28.8 MCHC 33.5 RDW 24.1 H Plt Count 48 L Seg Neutrophils % 25.6 L Lymphocytes % 41.9 Monocytes % 23.2 H Eosinophils % 7.4 H Basophils % 1.9 Absolute Neutrophils 0.1 L Absolute Lymphocytes 0.1 L Absolute Monocytes 0.1 Absolute Eosinophils 0.0 Absolute Basophils 0.0 VBG pH VBG pCO2 VBG HCO3 VBG Base Excess Sodium 138.3 Potassium 3.5 L Chloride 102 Carbon Dioxide 21 L Anion Gap 15 BUN 31 H Creatinine 1.68 H Est GFR ( Amer) 52 L Est GFR (Non-Af Amer) 43 L Glucose 88 Lactic Acid Calcium 6.8 L* Magnesium Total Bilirubin 0.6 AST 14 L ALT 13 L Alkaline Phosphatase 81 Total Protein 6.1 L Albumin 2.9 L Blood Type A NEGATIVE Antibody Screen NEGATIVE 09/20/18 09/20/18 09/20/18 11:58 11:58 11:58 WBC RBC Hgb Hct MCV MCH MCHC RDW Plt Count Seg Neutrophils % Lymphocytes % Monocytes % Eosinophils % Basophils % Absolute Neutrophils Absolute Lymphocytes Absolute Monocytes Absolute Eosinophils Absolute Basophils VBG pH 7.41 VBG pCO2 36.1 VBG HCO3 22.2 VBG Base Excess -2.2 Sodium Potassium Chloride Carbon Dioxide Anion Gap BUN Creatinine Est GFR ( Amer) Est GFR (Non-Af Amer) Glucose Lactic Acid 1.6 Calcium Magnesium 0.7 L* Total Bilirubin AST ALT Alkaline Phosphatase Total Protein Albumin Blood Type Antibody Screen Impressions: Chest X-Ray 09/20/18 11:43 IMPRESSION: Persistent left upper lobe lung mass narrow shows cavitation. No acute infiltrate. Status: Imported from PACS Assessment and Plan - Diagnosis (1) Neutropenic fever Is this a current diagnosis for this admission?: Yes Plan: Neutropenic fever in a cancer patient who recently received his first chem otherapy treatment (09/12/2018) No source of infection at this time ANC 75 - severe neutropenia Will check UA CT scan chest ordered to evaluate for PNA as possible source of neutropenic fever Tylenol for fever control (2) Hypocalcemia Is this a current diagnosis for this admission?: Yes Plan: Could be secondary to nutritional deficits Calcium 6.8 upon arrival Transfuse 1Gm Calcium Gluconate Will follow up with chemistry at 1800 today (3) Hypomagnesemia Is this a current diagnosis for this admission?: Yes Plan: Could be secondary to nutritional deficits Magnesium 0.3 upon arrival Transfuse 3Gm Magnesium sulfate Will follow up with chemistry at 1800 today (4) Anemia Qualifiers: Anemia type: bone marrow failure Is this a current diagnosis for this admission?: Yes Plan: Multifactorial Anemia could be stemming from recent chemotherapy treatment, history of malignancy, heavy EtOH dependence -possible component of nutritional deficiency No evidence of gross blood loss Patient was admitted for, among other things, anemia 2 months ago. Hgb was 6.6. Plan to transfuse 2U PRBCs Thiamine and folate p.o. daily Monitor serial CBCs and transfuse for Hgb<8.0 (5) Cancer of lung, upper lobe Qualifiers: Laterality: left Qualified Code(s): C34.12 - Malignant neoplasm of upper lobe, left bronchus or lung Is this a current diagnosis for this admission?: Yes Plan: Currently undergoing chemotherapy, received first treatment 09/12/[address] Arriaga, management per his expertise (6) Cavitary lesion of lung Is this a current diagnosis for this admission?: Yes Plan: Seen on CXR Lesion noted to be expanding on previous chest CT June [address] to help identify source of neutropenic fever (7) EtOH dependence Qualifiers: Substance use status: uncomplicated Qualified Code(s): F10.20 - Alcohol dependence, uncomplicated Is this a current diagnosis for this admission?: Yes Plan: Patient admits to drinking 8 shots per day Denies history of alcohol withdrawal seizures or DT Initiate daily p.o. thiamine and folate (8) History of DVT of lower extremity Is this a current diagnosis for this admission?: Yes Plan: History of multiple DVTs Continue home dose Xarelto (9) Lymphedema Is this a current diagnosis for this admission?: Yes Plan: Chronic lymphedema Keep extremities elevated (10) Tobacco dependence Is this a current diagnosis for this admission?: Yes Plan: Patient admits to continuing to smoke despite lung cancer diagnosis [id number] smoking history We will offer nicotine patch - Time Time Spent with patient: 25-34 minutes Medications reviewed and adjusted accordingly: Yes Anticipated discharge: Home - when medically stable Within: within 24 hours - Inpatient Certification Based on my medical assessment, after consideration of the patient's comorbidities, presenting symptoms, or acuity I expect that the services needed warrant INPATIENT care.: Yes I certify that my determination is in accordance with my understanding of Medicare's requirements for reasonable and necessary INPATIENT services [42 CFR 412.3e].: Yes Medical Necessity: Need For IV Fluids, Need For Continuous Telemetry Monitoring, Need for IV Antibiotics, Risk of Complication if Not Cared For in Hospital
[2018-09-20] MEDS ORDERED: NORMAL SALINE 1000 ML 1,000 ML IV ONE (17:39)
--- NOTE | 2018-09-20 18:23 | RADIOLOGY REPORT (SQ) ---
EXAM DESCRIPTION: CT CHEST WITHOUT COMPLETED DATE/TIME: 09/20/2018 5:47 pm REASON FOR STUDY: eval for PNA. Poss. source of neutropenic fever COMPARISON: 07/20/2018 TECHNIQUE: CT scan performed of the chest without intravenous contrast. Images reviewed with lung, soft tissue and bone windows. Reconstructed coronal and sagittal MPR images reviewed. All images st ored on PACS. All CT scanners at this facility use dose modulation, iterative reconstruction, and/or weight based d osing when appropriate to reduce radiation dose to as low as reasonably achievable (ALARA). [facility]: Dose Right [facility]: CareDose [facility]: Dose Right [facility]: Teradose 4D [facility]: Smart Woldme RADIATION DOSE: CT Rad equipment meets quality standard of care and radiation dose reduction techniq ues were employed. CTDIvol: 5.8 mGy. DLP: 238 mGy-cm. mGy. LIMITATIONS: No technical limitations. FINDINGS: LUNGS AND PLEURA: Left upper lobe lung mass is larger, measuring 71 x 76 mm. There is no pulmonary infiltrate. There are no additional pulmonary masses. HILAR AND MEDIASTINAL STRUCTURES: No identified masses or abnormal nodes. No obvious aneurysm. HEART AND VASCULAR STRUCTURES: No aneurysm. No pericardial effusion. UPPER ABDOMEN: Cholelithiasis. THYROID AND OTHER SOFT TISSUES: No masses. No adenopathy. BONES: The left upper lobe lung mass involves a couple of ribs. HARDWARE: None in the chest. OTHER: No other significant findings. IMPRESSION: Left upper lobe lung mass with direct involvement of a couple of ribs. No acute pulmona ry infiltrate. TECHNICAL DOCUMENTATION: JOB ID: [id number] Quality ID # [id number]: Final reports with documentation of one or more dose reduction techniques (e.g., Au tomated exposure control, adjustment of the mA and/or kV according to patient size, use of iterative reconstruction technique) 2010 [employer]- All Rights Reserved Reading location - IP/workstation name: [email or web address]
[2018-09-20] MEDS ORDERED: DIPHENHYDRAMINE HCL 50 MG/ML VIAL ONE (19:46)
[2018-09-20] MEDS ORDERED: MAGNESIUM SULFATE/D5W 1 GM/100 ML RTUPB IV ONE (20:15)
[2018-09-20 20:37] LABS: ALANINE AMINOTRANSFERASE 13 U/L (21-72); ALBUMIN 2.5 g/dL (3.5-5.0); ALKALINE PHOSPHATASE 79 U/L (38-126); ANION GAP 10 (5-19); ASPARTATE AMINO TRANSFERASE 11 U/L (17-59); BILIRUBIN,DIRECT 0.3 mg/dL (0.0-0.4); BILIRUBIN,TOTAL 0.7 mg/dL (0.2-1.3); BLOOD UREA NITROGEN 28 mg/dL (7-20); CARBON DIOXIDE 24 mmol/L (22-30); CHLORIDE 102 mmol/L (98-107); GLUCOSE 156 mg/dL (75-110); PHOSPHORUS 3.3 mg/dL (2.5-4.5); POTASSIUM 3.5 mmol/L (3.6-5.0); SODIUM 136.4 mmol/L (137-145); TOTAL PROTEIN 5.4 g/dL (6.3-8.2)
[2018-09-20 20:57] LABS: CALCIUM 6.5 mg/dL (8.4-10.2)
--- NOTE | 2018-09-20 22:14 | EKG REPORT ---
SEVERITY:- ABNORMAL ECG - SINUS TACHYCARDIA : Confirmed by: Sanam Talbot MD 20-Sep-2018 22:14:15
[2018-09-20] MEDS: MEROPENEM 1 GM in NORMAL SALINE 50 ML IV SCH (22:48)
[2018-09-20] MEDS: THIAMINE HCL 100 MG TABLET PO SCH (22:49)
[2018-09-20] MEDS: FOLIC ACID 1 MG TABLET PO SCH (22:49)
[2018-09-21] MEDS: NORMAL SALINE 1000 ML 1,000 ML IV PRN ×2 (01:25→18:24)
[2018-09-21] MEDS ORDERED: VANCOMYCIN HCL INJ 500 MG VIAL ONE (06:31)
[2018-09-21] MEDS: VANCOMYCIN HCL INJ 500 MG VIAL PO SCH ×4 (06:35→23:37)
[2018-09-21] MEDS: MEROPENEM 1 GM in NORMAL SALINE 50 ML IV SCH ×3 (06:35→21:49)
[2018-09-21] MEDS ORDERED: CALCIUM GLUCONATE 1,000 MG in DEXTROSE 5%-WATER 50 ML IV ONE (08:20)
--- NOTE | 2018-09-21 08:33 | PDOC CONSULTATION ---
Consultation Consult Date: 09/21/18 Provider Consulted: JANETH HAMM Consult reason:: Hematology/Oncology consultation was requested for patient on active chemotherapy for lung cancer. History of Present Illness Admission Date/PCP: 09/20/18 14:25 GRETA CEDILLO PA-C History of Present Illness: Mikael WHEATLEY II is a 53 year old male who was diagnosed with Stage III non-small cell lung cancer in July of this year. He was started on chemotherapy for the lung cancer and received his first dose carboplatin/paclitaxel on 09/12/2018. He has also been on Folic Acid 1 mg daily for folic acid deficiency. Patient states that he has had severe fatigue and poor appetite for several months. He continues to have 2-5 alcoholic drinks per day, despite counseling about this. Patient presented to the office yesterday for routine labs and fluids and was found to have neutropenic fever. He was admitted and started on antibiotics. He also has had diarrhea which is C. dif positive. Today, he states that he eats much better in the hospital than at home. However, he is still extremely fatigued. He denies any pain. Past Medical History Cardiac Medical History: Reports: Hypertension, Peripheral Vascular Disease Pulmonary Medical History: Reports: Pneumonia Neurological Medical History: Denies: Migraine, Seizures Endocrine Medical History: Denies: Diabetes Mellitus Type 2, Hyperthyroidism, Hypothyroidism Renal/ Medical History: Denies: End Stage Renal Disease GI Medical History: Reports: Gastroesophageal Reflux Disease Psychiatric Medical History: Denies: Depression Traumatic Medical History: Denies: Gunshot Wound, Traumatic Brain Injury Hematology: Reports: Anemia Denies: Bleeding Tendencies Past Surgical History Past Surgical History: Reports: Other - Bronchoscopy x2 Social History Lives with: Alone Smoking Status: Current Every Day Smoker Number of Years Smokin Frequency of Alcohol Use: Heavy Hx Recreational Drug Use: No Drugs: None Hx Prescription Drug Abuse: No - Advance Directive Resuscitation Status: Full Code Family History Family History: Hypertension, Malignancy - Mother with breast cancer Parental Family History Reviewed: Yes - Mother of breast cancer. Children Family History Reviewed: No Sibling(s) Family History Reviewed.: No Medication/Allergy Home Medications: Potassium Chloride 20 meq PO DAILY 09/20/18 Rivaroxaban [Xarelto] 20 mg PO DAILY 09/20/18 Allergies/Adverse Reactions: Penicillins Allergy (Verified 09/20/18 11:13) Review of Systems Constitutional: PRESENT: fatigue, weakness. ABSENT: headache(s) Eyes: ABSENT: visual disturbances Ears: ABSENT: hearing changes Nose, Mouth, and Throat: ABSENT: sore throat Cardiovascular: ABSENT: chest pain, palpitations Respiratory: ABSENT: dyspnea Gastrointestinal: PRESENT: heartburn Genitourinary: ABSENT: dysuria Musculoskeletal: PRESENT: muscle weakness Integumentary: ABSENT: rash Neurological: PRESENT: weakness Hematologic/Lymphatic: ABSENT: easy bleeding Physical Exam Vital Signs: Temp Pulse Resp BP Pulse Ox 98.2 F 89 24 H 120/73 95 09/21/18 06:17 09/21/18 06:17 09/21/18 06:17 09/21/18 06:17 09/21/18 06:17 Intake & Output 09/20/18 09/21/18 09/22/18 06:59 06:59 06:59 Intake Total 3288 50 Output Total 200 Balance 3088 50 Weight 67.8 kg General appearance: PRESENT: no acute distress, thin, well-developed Exam: 53 year old male. Eye exam: PRESENT: EOMI, PERRLA Mouth exam: PRESENT: neck supple, tongue midline Teeth exam: PRESENT: poor dentation Neck exam: ABSENT: lymphadenopathy, tenderness Respiratory exam: PRESENT: decreased breath sounds, unlabored Cardiovascular exam: PRESENT: RRR GI/Abdominal exam: PRESENT: soft. ABSENT: tenderness Extremities exam: PRESENT: other - [place] lymphedema and chronic skin changes bilateral ankles. Neurological exam: PRESENT: alert, awake Psychiatric exam: PRESENT: appropriate affect Skin exam: PRESENT: normal color, other - clubbing of nails. Results Laboratory Results: 09/20/18 11:58 09/20/18 19:55 09/20/18 09/20/18 09/20/18 11:58 11:58 11:58 WBC 0.3 L* RBC 2.33 L Hgb 6.7 L Hct 20.1 L MCV 86 MCH 28.8 MCHC 33.5 RDW 24.1 H Plt Count 48 L Seg Neutrophils % 25.6 L Lymphocytes % 41.9 Monocytes % 23.2 H Eosinophils % 7.4 H Basophils % 1.9 Absolute Neutrophils 0.1 L Absolute Lymphocytes 0.1 L Absolute Monocytes 0.1 Absolute Eosinophils 0.0 Absolute Basophils 0.0 VBG pH VBG pCO2 VBG HCO3 VBG Base Excess Sodium 138.3 Potassium 3.5 L Chloride 102 Carbon Dioxide 21 L Anion Gap 15 BUN 31 H Creatinine 1.68 H Est GFR ( Amer) 52 L Est GFR (Non-Af Amer) 43 L Glucose 88 Lactic Acid Calcium 6.8 L* Phosphorus Magnesium Total Bilirubin 0.6 AST 14 L ALT 13 L Alkaline Phosphatase 81 Total Protein 6.1 L Albumin 2.9 L Blood Type A NEGATIVE Antibody Screen NEGATIVE 09/20/18 09/20/18 09/20/18 11:58 11:58 11:58 WBC RBC Hgb Hct MCV MCH MCHC RDW Plt Count Seg Neutrophils % Lymphocytes % Monocytes % Eosinophils % Basophils % Absolute Neutrophils Absolute Lymphocytes Absolute Monocytes Absolute Eosinophils Absolute Basophils VBG pH 7.41 VBG pCO2 36.1 VBG HCO3 22.2 VBG Base Excess -2.2 Sodium Potassium Chloride Carbon Dioxide Anion Gap BUN Creatinine Est GFR ( Amer) Est GFR (Non-Af Amer) Glucose Lactic Acid 1.6 Calcium Phosphorus Magnesium 0.7 L* Total Bilirubin AST ALT Alkaline Phosphatase Total Protein Albumin Blood Type Antibody Screen 09/20/18 19:55 WBC RBC Hgb Hct MCV MCH MCHC RDW Plt Count Seg Neutrophils % Lymphocytes % Monocytes % Eosinophils % Basophils % Absolute Neutrophils Absolute Lymphocytes Absolute Monocytes Absolute Eosinophils Absolute Basophils VBG pH VBG pCO2 VBG HCO3 VBG Base Excess Sodium 136.4 L Potassium 3.5 L Chloride 102 Carbon Dioxide 24 Anion Gap 10 BUN 28 H Creatinine 1.64 H Est GFR ( Amer) 53 L Est GFR (Non-Af Amer) 44 L Glucose 156 H Lactic Acid Calcium 6.5 L* Phosphorus 3.3 Magnesium 1.3 L Total Bilirubin 0.7 AST 11 L ALT 13 L Alkaline Phosphatase 79 Total Protein 5.4 L Albumin 2.5 L Blood Type Antibody Screen Impressions: Chest CT 09/20/18 00:00 IMPRESSION: Left upper lobe lung mass with direct involvement of a couple of ribs. No acute pulmonary infiltrate. Chest X-Ray 09/20/18 11:43 IMPRESSION: Persistent left upper lobe lung mass narrow shows cavitation. No acute infiltrate. Assessment & Plan - Diagnosis (1) Cancer of lung, upper lobe Qualifiers: Laterality: left Qualified Code(s): C34.12 - Malignant neoplasm of upper lobe, left bronchus or lung Is this a current diagnosis for this admission?: Yes Plan: All treatment currently on hold. (2) Neutropenic fever Is this a current diagnosis for this admission?: Yes Plan: On appropriate antibiotics. (3) C. difficile diarrhea Is this a current diagnosis for this admission?: Yes Plan: Continue oral Vancomycin. (4) Anemia Qualifiers: Anemia type: bone marrow failure Bone marrow failure anemia type: pancytopenia, antineoplastic chemotherapy-induced Qualified Code(s): D61.810 - Antineoplastic chemotherapy induced pancytopenia; T45.1X5A - Adverse effect of antineoplastic and immunosuppressive drugs, initial encounter Is this a current diagnosis for this admission?: Yes Plan: Transfused 2 units yesterday. Continue transfusion support for HGB <8. - Plan Summary Plan Summary: watch for DTs due to alcohol withdrawal.
[2018-09-21 08:56] LABS: ABSOLUTE EOSINOPHILS # (AUTO) 0.1 10^3/uL (0.0-0.6); ABSOLUTE LYMPHOCYTES (AUTO) 0.3 10^3/uL (0.5-4.7); ABSOLUTE MONOCYTES (AUTO) 0.1 10^3/uL (0.1-1.4); ABSOLUTE NEUT (AUTO) 0.1 10^3/uL (1.7-8.2); BASOPHILS % (AUTO) 0.9 % (0-2); EOSINOPHILS % (AUTO) 9.4 % (0-6); HEMATOCRIT 20.5 % (37.9-51.0); LYMPHOCYTES % (AUTO) 52.7 % (13-45); MEAN CORPUSCULAR HEMOGLOBIN 29.4 pg (27.0-33.4); MEAN CORPUSCULAR HGB CONC 33.7 g/dL (32.0-36.0); MEAN CORPUSCULAR VOLUME 87 fl (80-97); MONOCYTES % (AUTO) 15.1 % (3-13); RED BLOOD COUNT 2.35 10^6/uL (4.35-5.55); RED CELL DISTRIBUTION WIDTH 20.9 % (11.5-14.0); SEGMENTED NEUTROPHILS % (AUTO) 21.9 % (42-78); TOTAL CELLS COUNTED % (AUTO) 100 %
[2018-09-21] MEDS ORDERED: CALCIUM GLUCONATE 1000 MG/10 ML INJ IV ONE (09:15)
[2018-09-21 09:18] LABS: ALANINE AMINOTRANSFERASE 14 U/L (21-72); ALBUMIN 2.3 g/dL (3.5-5.0); ALKALINE PHOSPHATASE 72 U/L (38-126); ANION GAP 9 (5-19); ASPARTATE AMINO TRANSFERASE 11 U/L (17-59); BILIRUBIN,DIRECT 0.4 mg/dL (0.0-0.4); BILIRUBIN,TOTAL 0.5 mg/dL (0.2-1.3); BLOOD UREA NITROGEN 27 mg/dL (7-20); CARBON DIOXIDE 22 mmol/L (22-30); CHLORIDE 105 mmol/L (98-107); GLUCOSE 116 mg/dL (75-110); SODIUM 135.8 mmol/L (137-145); TOTAL PROTEIN 5.1 g/dL (6.3-8.2); TRIGLYCERIDES 98 mg/dL (<150)
[2018-09-21 09:37] LABS: ANISOCYTOSIS 2+; HYPOCHROMASIA 2+
[2018-09-21 09:38] LABS: PLATELET COMMENT DECREASED
[2018-09-21 09:42] LABS: DIRECT LDL < 30 mg/dL (<100)
[2018-09-21 09:44] LABS: PLATELET COUNT 24 10^3/uL (150-450); WHITE BLOOD COUNT 0.6 10^3/uL (4.0-10.5)
[2018-09-21 09:45] LABS: CALCIUM 6.5 mg/dL (8.4-10.2); HEMOGLOBIN 6.9 g/dL (13.5-17.0)
[2018-09-21] MEDS: THIAMINE HCL 100 MG TABLET PO SCH (09:56)
[2018-09-21] MEDS ORDERED: NORMAL SALINE 250 ML IV PRN ×2 (09:56)
[2018-09-21] MEDS: FOLIC ACID 1 MG TABLET PO SCH (09:57)
[2018-09-21] MEDS: POTASSIUM CHLORIDE 10 MEQ CAPSULE.ER PO SCH (09:57)
[2018-09-21] MEDS: NICOTINE 21 MG/24 HR PATCH.TD24 TD SCH (09:57)
[2018-09-21] MEDS ORDERED: RIVAROXABAN 10 MG TABLET PO SCH (10:00)
[2018-09-21] MEDS ORDERED: ENOXAPARIN SODIUM INJ 30 MG/0.3 ML DISP.SYRIN SUBCUT SCH (10:00)
[2018-09-21] MEDS ORDERED: POTASSIUM CHLORIDE 10 MEQ CAPSULE.ER PO ONE (11:00)
[2018-09-21] MEDS: MAGNESIUM SULFATE/D5W 1 GM/100 ML RTUPB IV SCH ×2 (12:25→14:02)
[2018-09-21] MEDS: POTASSI CL 20 MEQ/50 ML RIDER 20 MEQ/50 ML RTUPB IV SCH ×2 (12:35→14:10)
[2018-09-21 14:32] LABS: PATH REVIEW PATHOLOGIST REVIEWED
[2018-09-21 15:28] LABS: AMORPHOUS SEDIMENT,URINE 1+ /HPF; APPEARANCE,URINE SLIGHTLY-CLOUDY; BILIRUBIN,URINE NEGATIVE (NEGATIVE); COLOR,URINE YELLOW; GLUCOSE, URINE 50 mg/dL (NEGATIVE); KETONES,URINE TRACE mg/dL (NEGATIVE); LEUKOCYTE ESTERASE,URINE NEGATIVE (NEGATIVE); NITRITE,URINE NEGATIVE (NEGATIVE); PROTEIN,URINE 30 mg/dL (NEGATIVE); URINE SPECIFIC GRAVITY 1.017; UROBILINOGEN,URINE NEGATIVE mg/dL (<2.0)
[2018-09-21 21:15] LABS: HEMATOCRIT 24.6 % (37.9-51.0); HEMOGLOBIN 8.4 g/dL (13.5-17.0); MEAN CORPUSCULAR HEMOGLOBIN 29.6 pg (27.0-33.4); MEAN CORPUSCULAR HGB CONC 34.3 g/dL (32.0-36.0); MEAN CORPUSCULAR VOLUME 86 fl (80-97); RED BLOOD COUNT 2.85 10^6/uL (4.35-5.55); RED CELL DISTRIBUTION WIDTH 18.9 % (11.5-14.0)
[2018-09-21 21:24] LABS: PLATELET COUNT 33 10^3/uL (150-450)
[2018-09-21 21:26] LABS: WHITE BLOOD COUNT 0.6 10^3/uL (4.0-10.5)
[2018-09-21 21:39] LABS: ANION GAP 8 (5-19); BLOOD UREA NITROGEN 28 mg/dL (7-20); CALCIUM 7.1 mg/dL (8.4-10.2); CARBON DIOXIDE 21 mmol/L (22-30); CHLORIDE 109 mmol/L (98-107); GLUCOSE 112 mg/dL (75-110); POTASSIUM 3.7 mmol/L (3.6-5.0); SODIUM 137.6 mmol/L (137-145)
[2018-09-22 04:58] LABS: HEMATOCRIT 23.3 % (37.9-51.0); HEMOGLOBIN 8.2 g/dL (13.5-17.0); MEAN CORPUSCULAR HEMOGLOBIN 30.1 pg (27.0-33.4); MEAN CORPUSCULAR VOLUME 86 fl (80-97); RED BLOOD COUNT 2.71 10^6/uL (4.35-5.55); RED CELL DISTRIBUTION WIDTH 19.4 % (11.5-14.0)
[2018-09-22 05:21] LABS: ALANINE AMINOTRANSFERASE 14 U/L (21-72); ALBUMIN 2.1 g/dL (3.5-5.0); ALKALINE PHOSPHATASE 77 U/L (38-126); ANION GAP 9 (5-19); ASPARTATE AMINO TRANSFERASE 17 U/L (17-59); BILIRUBIN,DIRECT 0.3 mg/dL (0.0-0.4); BILIRUBIN,TOTAL 0.4 mg/dL (0.2-1.3); BLOOD UREA NITROGEN 26 mg/dL (7-20); CALCIUM 7.4 mg/dL (8.4-10.2); CARBON DIOXIDE 19 mmol/L (22-30); CHLORIDE 112 mmol/L (98-107); GLUCOSE 93 mg/dL (75-110); PHOSPHORUS 2.6 mg/dL (2.5-4.5); POTASSIUM 3.6 mmol/L (3.6-5.0); SODIUM 140.2 mmol/L (137-145); TOTAL PROTEIN 4.8 g/dL (6.3-8.2)
[2018-09-22] MEDS: MEROPENEM 1 GM in NORMAL SALINE 50 ML IV SCH (05:28)
[2018-09-22] MEDS: VANCOMYCIN HCL INJ 500 MG VIAL PO SCH ×4 (05:28→23:29)
[2018-09-22 05:35] LABS: WHITE BLOOD COUNT 0.7 10^3/uL (4.0-10.5)
[2018-09-22 05:36] LABS: PLATELET COUNT 26 10^3/uL (150-450)
--- NOTE | 2018-09-22 08:30 | PDOC PROGRESS REPORT ---
Subjective Progress Note for:: 09/22/18 Subjective:: Patient still had diarrhea yesterday. But overall feels better today. Reason For Visit: ANEMIA, LEUKOPENIA Physical Exam Vital Signs: Temp Pulse Resp BP Pulse Ox 98.4 F 85 24 H 143/82 H 93 09/22/18 03:37 09/22/18 07:00 09/22/18 03:37 09/22/18 03:37 09/22/18 03:37 Intake & Output 09/21/18 09/22/18 09/23/18 06:59 06:59 06:59 Intake Total 3288 3283 Output Total 200 Balance 3088 3283 Weight 67.8 kg 71.5 kg General appearance: PRESENT: no acute distress, well-developed, well-nourished Head exam: PRESENT: atraumatic, normocephalic Eye exam: PRESENT: conjunctiva pink, EOMI, PERRLA. ABSENT: scleral icterus Ear exam: PRESENT: normal external ear exam Mouth exam: PRESENT: moist, tongue midline Neck exam: ABSENT: carotid bruit, JVD, lymphadenopathy, thyromegaly Respiratory exam: PRESENT: clear to auscultation joe. ABSENT: rales, rhonchi, wheezes Cardiovascular exam: PRESENT: RRR. ABSENT: diastolic murmur, rubs, systolic murmur Pulses: PRESENT: normal dorsalis pedis pul Vascular exam: PRESENT: normal capillary refill GI/Abdominal exam: PRESENT: normal bowel sounds, soft. ABSENT: distended, guarding, mass, organolmegaly, rebound, tenderness Rectal exam: PRESENT: deferred Extremities exam: PRESENT: full ROM. ABSENT: calf tenderness, clubbing, pedal edema Neurological exam: PRESENT: alert, awake, oriented to person, oriented to place, oriented to time, oriented to situation, CN II-XII grossly intact. ABSENT: motor sensory deficit Psychiatric exam: PRESENT: appropriate affect, normal mood. ABSENT: homicidal ideation, suicidal ideation Skin exam: PRESENT: dry, intact, warm. ABSENT: cyanosis, rash Results Laboratory Results: 09/22/18 04:02 09/22/18 04:02 09/20/18 09/21/18 09/21/18 11:58 08:37 08:37 WBC 0.6 L* RBC 2.35 L Hgb 6.9 L Hct 20.5 L MCV 87 MCH 29.4 MCHC 33.7 RDW 20.9 H Plt Count 24 L* Seg Neutrophils % 21.9 L Lymphocytes % 52.7 H Monocytes % 15.1 H Eosinophils % 9.4 H Basophils % 0.9 Absolute Neutrophils 0.1 L Absolute Lymphocytes 0.3 L Absolute Monocytes 0.1 Absolute Eosinophils 0.1 Absolute Basophils 0.0 Sodium 135.8 L Potassium 3.0 L* Chloride 105 Carbon Dioxide 22 Anion Gap 9 BUN 27 H Creatinine 1.50 H Est GFR ( Amer) 59 L Est GFR (Non-Af Amer) 49 L Glucose 116 H Calcium 6.5 L* Phosphorus 3.0 Magnesium 1.3 L Total Bilirubin 0.5 AST 11 L ALT 14 L Alkaline Phosphatase 72 Total Protein 5.1 L Albumin 2.3 L Triglycerides 98 Cholesterol 69.70 LDL Cholesterol Direct < 30 VLDL Cholesterol 20.0 HDL Cholesterol 42 Urine Color Urine Appearance Urine pH Ur Specific [place] Urine Protein Urine Glucose (UA) Urine Ketones Urine Blood Urine Nitrite Ur Leukocyte Esterase Urine WBC (Auto) Urine RBC (Auto) Blood Type A NEGATIVE Antibody Screen NEGATIVE 09/21/18 09/21/18 09/21/18 14:47 20:59 20:59 WBC 0.6 L* RBC 2.85 L Hgb 8.4 L Hct 24.6 L MCV 86 MCH 29.6 MCHC 34.3 RDW 18.9 H Plt Count 33 L Seg Neutrophils % Lymphocytes % Monocytes % Eosinophils % Basophils % Absolute Neutrophils Absolute Lymphocytes Absolute Monocytes Absolute Eosinophils Absolute Basophils Sodium 137.6 Potassium 3.7 Chloride 109 H Carbon Dioxide 21 L Anion Gap 8 BUN 28 H Creatinine 1.34 H Est GFR ( Amer) > 60 Est GFR (Non-Af Amer) 56 L Glucose 112 H Calcium 7.1 L Phosphorus Magnesium 1.6 Total Bilirubin AST ALT Alkaline Phosphatase Total Protein Albumin Triglycerides Cholesterol LDL Cholesterol Direct VLDL Cholesterol HDL Cholesterol Urine Color YELLOW Urine Appearance SLIGHTLY-CLOUDY Urine pH 5.0 Ur Specific [place] 1.017 Urine Protein 30 H Urine Glucose (UA) 50 H Urine Ketones TRACE H Urine Blood MODERATE H Urine Nitrite NEGATIVE Ur Leukocyte Esterase NEGATIVE Urine WBC (Auto) 1 Urine RBC (Auto) 13 Blood Type Antibody Screen 09/22/18 09/22/18 04:02 04:02 WBC 0.7 L* RBC 2.71 L Hgb 8.2 L Hct 23.3 L MCV 86 MCH 30.1 MCHC 35.0 RDW 19.4 H Plt Count 26 L* Seg Neutrophils % Lymphocytes % Monocytes % Eosinophils % Basophils % Absolute Neutrophils Absolute Lymphocytes Absolute Monocytes Absolute Eosinophils Absolute Basophils Sodium 140.2 Potassium 3.6 Chloride 112 H Carbon Dioxide 19 L Anion Gap 9 BUN 26 H Creatinine 1.22 Est GFR ( Amer) > 60 Est GFR (Non-Af Amer) > 60 Glucose 93 Calcium 7.4 L Phosphorus 2.6 Magnesium 1.5 L Total Bilirubin 0.4 AST 17 ALT 14 L Alkaline Phosphatase 77 Total Protein 4.8 L Albumin 2.1 L Triglycerides Cholesterol LDL Cholesterol Direct VLDL Cholesterol HDL Cholesterol Urine Color Urine Appearance Urine pH Ur Specific [place] Urine Protein Urine Glucose (UA) Urine Ketones Urine Blood Urine Nitrite Ur Leukocyte Esterase Urine WBC (Auto) Urine RBC (Auto) Blood Type Antibody Screen 09/21/18 08:37 NT-Pro-B Natriuret Pep 6250 H Impressions: Chest CT 09/20/18 00:00 IMPRESSION: Left upper lobe lung mass with direct involvement of a couple of ribs. No acute pulmonary infiltrate. Chest X-Ray 09/20/18 11:43 IMPRESSION: Persistent left upper lobe lung mass narrow shows cavitation. No acute infiltrate. Status: Image reviewed by me Assessment & Plan - Diagnosis (1) C. difficile diarrhea Is this a current diagnosis for this admission?: Yes Plan: Continue with treatment per hospitalist team, continue enteric precautions. (2) Cancer of lung, upper lobe Qualifiers: Laterality: left Qualified Code(s): C34.12 - Malignant neoplasm of upper lobe, left bronchus or lung Is this a current diagnosis for this admission?: Yes Plan: Plan to continue therapy as an outpatient but we discussed that patient definitely needs to get stronger. (4) Anemia Qualifiers: Anemia type: bone marrow failure Bone marrow failure anemia type: pancytopenia, antineoplastic chemotherapy-induced Qualified Code(s): D61.810 - Antineoplastic chemotherapy induced pancytopenia; T45.1X5A - Adverse effect of antineoplastic and immunosuppressive drugs, initial encounter Is this a current diagnosis for this admission?: Yes Plan: Secondary to chemotherapy, would transfuse red blood cells if hemoglobin gets under 7, or platelets if platelet gets under 20. (5) Neutropenic fever Is this a current diagnosis for this admission?: Yes Plan: Continue with current antibiotic regimen
[2018-09-22] MEDS: POTASSIUM CHLORIDE 10 MEQ CAPSULE.ER PO SCH (09:33)
[2018-09-22] MEDS: NICOTINE 21 MG/24 HR PATCH.TD24 TD SCH (09:34)
[2018-09-22] MEDS: THIAMINE HCL 100 MG TABLET PO SCH (09:34)
[2018-09-22] MEDS: FOLIC ACID 1 MG TABLET PO SCH (09:34)
[2018-09-22] MEDS: NORMAL SALINE 1000 ML 1,000 ML IV PRN ×2 (10:23→23:30)
--- NOTE | 2018-09-22 21:17 | PDOC PROGRESS REPORT ---
Subjective Progress Note for:: 09/22/18 Subjective:: Mikael WHEATLEY II is a 53 year old male with a PMH significant for left upper lobe lung mass (undergoing chemotherapy, first treatment 09/12/2018), multiple DVTs/PE, on chronic Xarelto, chronic anemia, tobacco dependence, alcohol dependence. The patient was seen this morning on rounds. He is resting comfortably in bed on room air, states he feels mildly better when compared to yesterday. Hgb has improved following 4 U PRBC (6.7-->6.9-->8.1). Platelets also increased 48k-->24k-->33k. Electrolytes (potassium, magnesium) remain low. The patient is seen on rounds. He is in good spirits. Reports his fatigue has improved, but he still requires assistance to ambulate (which is not his baseline, normally walks independently). He reports he has a good appetite. Denies any complaints at this time. Oncology has been consulted, continue to appreciate their recommendations. The source of the patient's neutropentic fever is likely the CDIFF infection. Plan to continue PO vancomycin and d/c meropenem. Reason For Visit: ANEMIA, LEUKOPENIA Physical Exam Vital Signs: Temp Pulse Resp BP Pulse Ox 98.3 F 82 21 H 139/79 H 97 09/22/18 19:43 09/22/18 19:43 09/22/18 19:43 09/22/18 19:43 09/22/18 19:43 Intake & Output 09/21/18 09/22/18 09/23/18 06:59 06:59 06:59 Intake Total 3288 3283 2301 Output Total 200 Balance 3088 3283 2301 Weight 67.8 kg 71.5 kg General appearance: PRESENT: thin Eye exam: PRESENT: conjunctiva pale, PERRLA Teeth exam: PRESENT: poor dentation Neck exam: PRESENT: full ROM Respiratory exam: PRESENT: clear to auscultation joe, symmetrical, unlabored Cardiovascular exam: PRESENT: +S1, +S2, systolic murmur Pulses: PRESENT: normal radial pulses Vascular exam: PRESENT: pallor GI/Abdominal exam: PRESENT: normal bowel sounds, soft. ABSENT: tenderness Rectal exam: PRESENT: deferred Extremities exam: PRESENT: full ROM Musculoskeletal exam: PRESENT: ambulatory, full ROM Neurological exam: PRESENT: alert, awake, oriented to person, oriented to place, oriented to time, oriented to situation Psychiatric exam: PRESENT: appropriate affect Skin exam: PRESENT: dry, intact, pallor Results Laboratory Results: 09/22/18 04:02 09/22/18 04:02 09/21/18 09/21/18 09/22/18 20:59 20:59 04:02 WBC 0.6 L* 0.7 L* RBC 2.85 L 2.71 L Hgb 8.4 L 8.2 L Hct 24.6 L 23.3 L MCV 86 86 MCH 29.6 30.1 MCHC 34.3 35.0 RDW 18.9 H 19.4 H Plt Count 33 L 26 L* Sodium 137.6 Potassium 3.7 Chloride 109 H Carbon Dioxide 21 L Anion Gap 8 BUN 28 H Creatinine 1.34 H Est GFR ( Amer) > 60 Est GFR (Non-Af Amer) 56 L Glucose 112 H Calcium 7.1 L Phosphorus Magnesium 1.6 Total Bilirubin AST ALT Alkaline Phosphatase Total Protein Albumin 09/22/18 04:02 WBC RBC Hgb Hct MCV MCH MCHC RDW Plt Count Sodium 140.2 Potassium 3.6 Chloride 112 H Carbon Dioxide 19 L Anion Gap 9 BUN 26 H Creatinine 1.22 Est GFR ( Amer) > 60 Est GFR (Non-Af Amer) > 60 Glucose 93 Calcium 7.4 L Phosphorus 2.6 Magnesium 1.5 L Total Bilirubin 0.4 AST 17 ALT 14 L Alkaline Phosphatase 77 Total Protein 4.8 L Albumin 2.1 L 09/21/18 08:37 NT-Pro-B Natriuret Pep 6250 H Impressions: Chest CT 09/20/18 00:00 IMPRESSION: Left upper lobe lung mass with direct involvement of a couple of ribs. No acute pulmonary infiltrate. Chest X-Ray 09/20/18 11:43 IMPRESSION: Persistent left upper lobe lung mass narrow shows cavitation. No acute infiltrate. Status: Imported from PACS Assessment and Plan - Diagnosis (1) C. difficile diarrhea Is this a current diagnosis for this admission?: Yes Plan: Diarrhea in an immunocompromised patient who just received chemotherapy 2 weeks ago (+) CDIFF PCR Started on PO vancomycin This is patient's first incident, treatment guidelines are 10 days of PO vancomycin 125mg PO QID x 10 days (2) Neutropenic fever Is this a current diagnosis for this admission?: Yes Plan: Neutropenic fever in a cancer patient who recently received his first chemotherapy treatment (09/12/2018) Fever is likely the result of direct toxic effects of chemotherapy in addition to the underlying malignancy Source of infection is likely CDIFF CT scan chest negative for PNA UA negative Patient does not have any indwelling devices or open wounds as potential sources of infection Systolic murmur auscultated on exam, ?possible infectious endocarditis? or chemotherapy induced cardiotoxicity ECHOcardiogram done, currently pending Blood cultures pending Tylenol for fever control (3) Hypocalcemia Is this a current diagnosis for this admission?: Yes Plan: Improving 6.5-->7.4 Could be secondary to nutritional deficits vs. side effects of chemotherapy Requiring calcium gluconate yesterday Will follow up with chemistry with AM labs (4) Hypomagnesemia Is this a current diagnosis for this admission?: Yes Plan: Slightly improved but still very low Could be secondary to nutritional deficits Magnesium 1.3 upon arrival, today 1.5 Transfuse 2Gm Magnesium sulfate today Follow daily chemistries (5) Anemia Qualifiers: Anemia type: bone marrow failure Bone marrow failure anemia type: pancytope flor, antineoplastic chemotherapy-induced Qualified Code(s): D61.810 - Ant ineoplastic chemotherapy induced pancytopenia; T45.1X5A - Adverse effect of antineoplastic and immunosuppressive drugs, initial encounter Is this a current diagnosis for this admission?: Yes Plan: Multifactorial Anemia could be stemming from recent chemotherapy treatment, history of malignancy, heavy EtOH dependence -possible component of nutritional deficiency No evidence of gross blood loss Patient was admitted for, among other things, anemia 2 months ago. Hgb was 6.9. Now s/p 4U PRBCs this hospitalization, patient remains anemic (Hgb 8.1), but no need for transfusion today. Thiamine and folate p.o. daily Monitor serial CBCs and transfuse for Hgb<8.0 (6) Cancer of lung, upper lobe Qualifiers: Laterality: left Qualified Code(s): C34.12 - Malignant neoplasm of upper lobe, left bronchus or lung Is this a current diagnosis for this admission?: Yes Plan: Currently undergoing chemotherapy, received first treatment 09/12/[address] Arriaga, management per his expertise (7) Cavitary lesion of lung Is this a current diagnosis for this admission?: Yes Plan: Seen on CXR Lesion noted to be expanding on chest CT June [address] upon admission only shows EUSEBIO lung mass, no infiltrate or pleural effusion (8) EtOH dependence Qualifiers: Substance use status: uncomplicated Qualified Code(s): F10.20 - Alcohol dependence, uncomplicated Is this a current diagnosis for this admission?: Yes Plan: Patient admits to drinking 8 shots per day Denies history of alcohol withdrawal seizures or DT daily p.o. thiamine and folate Seizure precautions (9) History of DVT of lower extremity Is this a current diagnosis for this admission?: Yes Plan: History of multiple DVTs Home dose Xarelto currently on hold due to severe anemia (10) Lymphedema Is this a current diagnosis for this admission?: Yes Plan: Chronic lymphedema Keep extremities elevated (11) Tobacco dependence Is this a current diagnosis for this admission?: Yes Plan: Patient admits to continuing to smoke despite lung cancer diagnosis [id number] smoking history We will offer nicotine patch - Time Time Spent with patient: 15-24 minutes Medications reviewed and adjusted accordingly: Yes Anticipated discharge: Home Within: Other - when stabilized - Inpatient Certification Based on my medical assessment, after consideration of the patient's comorbidities, presenting symptoms, or acuity I expect that the services needed warrant INPATIENT care.: Yes I certify that my determination is in accordance with my understanding of Medicare's requirements for reasonable and necessary INPATIENT services [42 CFR 412.3e].: Yes Medical Necessity: Risk of Complication if Not Cared For in Hospital
--- NOTE | 2018-09-22 21:17 | PDOC PROGRESS REPORT ---
Subjective Progress Note for:: 09/21/18 Subjective:: Mikael WHEATLEY II is a 53 year old male with a PMH significant for left upper lobe lung mass (undergoing chemotherapy, first treatment 09/12/2018), multiple DVTs/PE, on chronic Xarelto, chronic anemia, tobacco dependence, alcohol dependence. The patient was seen this morning on rounds. He is resting comfortably in bed on room air, states he feels mildly better when compared to yesterday. Hgb has not improved when compared to yesterday (6.7-->6.9). Plan to transfuse 2U PRBC again today. Platelets dropped from 48k-->24k. Plan for platelet transfusion today. Electrolytes (potassium, magnesium, calcium) remain low. The patient's laboratory derrangements and neutropenic fever are the result of the effects of chemotherapy. Will continue to monitor closely, transfuse blood products and replace electrolytes as needed. Oncology has been consulted, appreciate their recommendations. Reason For Visit: ANEMIA, LEUKOPENIA Physical Exam Vital Signs: Temp Pulse Resp BP Pulse Ox 98.5 F 94 17 112/75 93 09/21/18 07:19 09/21/18 07:19 09/21/18 07:19 09/21/18 07:19 09/21/18 07:19 Intake & Output 09/20/18 09/21/18 09/22/18 06:59 06:59 06:59 Intake Total 3288 50 Output Total 200 Balance 3088 50 Weight 67.8 kg General appearance: PRESENT: thin Head exam: PRESENT: atraumatic Eye exam: PRESENT: conjunctiva pink, PERRLA Mouth exam: PRESENT: moist, tongue midline Teeth exam: PRESENT: poor dentation Neck exam: PRESENT: full ROM Respiratory exam: PRESENT: clear to auscultation joe, symmetrical, unlabored Cardiovascular exam: PRESENT: RRR Pulses: PRESENT: normal radial pulses, other - UNBLE TO ASSESS DUE TO SIGNIFICANT PERIPHERAL EDEMA Vascular exam: PRESENT: normal capillary refill GI/Abdominal exam: PRESENT: normal bowel sounds, soft. ABSENT: distended, tenderness Rectal exam: PRESENT: deferred Extremities exam: PRESENT: full ROM, pedal edema - EXTREMELY SEVERE LYMPHEDEMA IN THE LOWER EXTREMITIES Musculoskeletal exam: PRESENT: ambulatory, deformity, full ROM. ABSENT: normal inspection Neurological exam: PRESENT: alert, awake, oriented to person, oriented to place, oriented to time, oriented to situation Psychiatric exam: PRESENT: appropriate affect Skin exam: PRESENT: pallor, other - SIGNIFICANT LYMPHEDEMA. Results Laboratory Results: 09/21/18 08:37 09/21/18 08:37 09/20/18 09/20/18 09/20/18 11:58 11:58 11:58 WBC 0.3 L* RBC 2.33 L Hgb 6.7 L Hct 20.1 L MCV 86 MCH 28.8 MCHC 33.5 RDW 24.1 H Plt Count 48 L Seg Neutrophils % 25.6 L Lymphocytes % 41.9 Monocytes % 23.2 H Eosinophils % 7.4 H Basophils % 1.9 Absolute Neutrophils 0.1 L Absolute Lymphocytes 0.1 L Absolute Monocytes 0.1 Absolute Eosinophils 0.0 Absolute Basophils 0.0 VBG pH VBG pCO2 VBG HCO3 VBG Base Excess Sodium 138.3 Potassium 3.5 L Chloride 102 Carbon Dioxide 21 L Anion Gap 15 BUN 31 H Creatinine 1.68 H Est GFR ( Amer) 52 L Est GFR (Non-Af Amer) 43 L Glucose 88 Lactic Acid Calcium 6.8 L* Phosphorus Magnesium Total Bilirubin 0.6 AST 14 L ALT 13 L Alkaline Phosphatase 81 Total Protein 6.1 L Albumin 2.9 L Triglycerides Cholesterol LDL Cholesterol Direct VLDL Cholesterol HDL Cholesterol Blood Type A NEGATIVE Antibody Screen NEGATIVE 09/20/18 09/20/18 09/20/18 11:58 11:58 11:58 WBC RBC Hgb Hct MCV MCH MCHC RDW Plt Count Seg Neutrophils % Lymphocytes % Monocytes % Eosinophils % Basophils % Absolute Neutrophils Absolute Lymphocytes Absolute Monocytes Absolute Eosinophils Absolute Basophils VBG pH 7.41 VBG pCO2 36.1 VBG HCO3 22.2 VBG Base Excess -2.2 Sodium Potassium Chloride Carbon Dioxide Anion Gap BUN Creatinine Est GFR ( Amer) Est GFR (Non-Af Amer) Glucose Lactic Acid 1.6 Calcium Phosphorus Magnesium 0.7 L* Total Bilirubin AST ALT Alkaline Phosphatase Total Protein Albumin Triglycerides Cholesterol LDL Cholesterol Direct VLDL Cholesterol HDL Cholesterol Blood Type Antibody Screen 09/20/18 09/21/18 09/21/18 19:55 08:37 08:37 WBC 0.6 L* RBC 2.35 L Hgb 6.9 L Hct 20.5 L MCV 87 MCH 29.4 MCHC 33.7 RDW 20.9 H Plt Count 24 L* Seg Neutrophils % 21.9 L Lymphocytes % 52.7 H Monocytes % 15.1 H Eosinophils % 9.4 H Basophils % 0.9 Absolute Neutrophils 0.1 L Absolute Lymphocytes 0.3 L Absolute Monocytes 0.1 Absolute Eosinophils 0.1 Absolute Basophils 0.0 VBG pH VBG pCO2 VBG HCO3 VBG Base Excess Sodium 136.4 L 135.8 L Potassium 3.5 L 3.0 L* Chloride 102 105 Carbon Dioxide 24 22 Anion Gap 10 9 BUN 28 H 27 H Creatinine 1.64 H 1.50 H Est GFR ( Amer) 53 L 59 L Est GFR (Non-Af Amer) 44 L 49 L Glucose 156 H 116 H Lactic Acid Calcium 6.5 L* 6.5 L* Phosphorus 3.3 3.0 Magnesium 1.3 L 1.3 L Total Bilirubin 0.7 0.5 AST 11 L 11 L ALT 13 L 14 L Alkaline Phosphatase 79 72 Total Protein 5.4 L 5.1 L Albumin 2.5 L 2.3 L Triglycerides 98 Cholesterol 69.70 LDL Cholesterol Direct < 30 VLDL Cholesterol 20.0 HDL Cholesterol 42 Blood Type Antibody Screen 09/21/18 08:37 NT-Pro-B Natriuret Pep 6250 H Impressions: Chest CT 09/20/18 00:00 IMPRESSION: Left upper lobe lung mass with direct involvement of a couple of ribs. No acute pulmonary infiltrate. Chest X-Ray 09/20/18 11:43 IMPRESSION: Persistent left upper lobe lung mass narrow shows cavitation. No acute infiltrate. Status: Imported from PACS Assessment and Plan - Diagnosis (1) Neutropenic fever Is this a current diagnosis for this admission?: Yes Plan: Neutropenic fever in a cancer patient who recently received his first chemotherapy treatment (09/12/2018) Fever is likely the result of direct toxic effects of chemotherapy in addition to the uerlying malignancy No source of infection at this time ANC 131 - severe neutropenia CT scan chest negative for PNA UA pending Patient does not have any indwelling devices or open wounds as potential sources of infection Systolic murmur auscultated on exam, ?possible infectious endocarditis? or chemotherapy induced cardiotoxicity ECHOcardiogram ordered Blood cultures pending Tylenol for fever control (2) Hypocalcemia Is this a current diagnosis for this admission?: Yes Plan: Worsening Could be secondary to nutritional deficits vs. side effects of chemotherapy Corrected calcium is 7.9, remains low despite Calcium gluconate infusion yesterday Transfuse 1Gm Calcium Gluconate again today Will follow up with chemistry at 1800 today (3) Hypomagnesemia Is this a current diagnosis for this admission?: Yes Plan: Slightly improved but still very low Could be secondary to nutritional deficits Magnesium 1.3 upon arrival Transfuse 2Gm Magnesium sulfate today Will follow up with chemistry at 1800 today (4) Anemia Qualifiers: Anemia type: bone marrow failure Bone marrow failure anemia type: pancytopenia, antineoplastic chemotherapy-induced Qualified Code(s): D61.810 - Antineoplastic chemotherapy induced pancytopenia; T45.1X5A - Adverse effect of antineoplastic and immunosuppressive drugs, initial encounter Is this a current diagnosis for this admission?: Yes Plan: Multifactorial Anemia could be stemming from recent chemotherapy treatment, history of malignancy, heavy EtOH dependence -possible component of nutritional deficiency No evidence of gross blood loss Patient was admitted for, among other things, anemia 2 months ago. Hgb was 6.9. Tranfused 2U PRBCs yesterday, patient remains anemic (Hgb 6.9), will transfuse 2UPRBC again today. Thiamine and folate p.o. daily Monitor serial CBCs and transfuse for Hgb<8.0 (5) Cancer of lung, upper lobe Qualifiers: Laterality: left Qualified Code(s): C34.12 - Malignant neoplasm of upper lobe, left bronchus or lung Is this a current diagnosis for this admission?: Yes Plan: Currently undergoing chemotherapy, received first treatment 09/12/[address] Arriaga, management per his expertise (6) Cavitary lesion of lung Is this a current diagnosis for this admission?: Yes Plan: Seen on CXR Lesion noted to be expanding on chest CT June [address] upon admission only hows EUSEBIO lung mass, no infiltrate or pleural effusion (7) EtOH dependence Qualifiers: Substance use status: uncomplicated Qualified Code(s): F10.20 - Alcohol dependence, uncomplicated Is this a current diagnosis for this admission?: Yes Plan: Patient admits to drinking 8 shots per day Denies history of alcohol withdrawal seizures or DT Initiate daily p.o. thiamine and folate Seizure precautions (8) History of DVT of lower extremity Is this a current diagnosis for this admission?: Yes Plan: History of multiple DVTs Home dose Xarelto currently on hold due to severe anemia (9) Lymphedema Is this a current diagnosis for this admission?: Yes Plan: Chronic lymphedema Keep extremities elevated (10) Tobacco dependence Is this a current diagnosis for this admission?: Yes Plan: Patient admits to continuing to smoke despite lung cancer diagnosis [id number] smoking history We will offer nicotine patch - Time Time Spent with patient: 15-24 minutes Medications reviewed and adjusted accordingly: Yes Anticipated discharge: Home Within: within 48 hours - Inpatient Certification Based on my medical assessment, after consideration of the patient's comorbidities, presenting symptoms, or acuity I expect that the services needed warrant INPATIENT care.: Yes I certify that my determination is in accordance with my understanding of Medicare's requirements for reasonable and necessary INPATIENT services [42 CFR 412.3e].: Yes Medical Necessity: Significant Comorbidiites Make Outpatient Treatment Too Risky, Need For IV Fluids, Need For Continuous Telemetry Monitoring, Need for IV Antibiotics, Risk of Complication if Not Cared For in Hospital
[2018-09-23] MEDS: VANCOMYCIN HCL INJ 500 MG VIAL PO SCH ×4 (05:07→23:09)
[2018-09-23 05:35] LABS: HEMOGLOBIN 8.7 g/dL (13.5-17.0); MEAN CORPUSCULAR HEMOGLOBIN 30.4 pg (27.0-33.4); MEAN CORPUSCULAR HGB CONC 34.7 g/dL (32.0-36.0); MEAN CORPUSCULAR VOLUME 88 fl (80-97); RED BLOOD COUNT 2.85 10^6/uL (4.35-5.55); RED CELL DISTRIBUTION WIDTH 19.4 % (11.5-14.0)
[2018-09-23 05:56] LABS: ALANINE AMINOTRANSFERASE 15 U/L (21-72); ALBUMIN 2.2 g/dL (3.5-5.0); ALKALINE PHOSPHATASE 79 U/L (38-126); ANION GAP 8 (5-19); ASPARTATE AMINO TRANSFERASE 19 U/L (17-59); BILIRUBIN,DIRECT 0.2 mg/dL (0.0-0.4); BILIRUBIN,TOTAL 0.2 mg/dL (0.2-1.3); BLOOD UREA NITROGEN 21 mg/dL (7-20); CALCIUM 7.5 mg/dL (8.4-10.2); CARBON DIOXIDE 19 mmol/L (22-30); CHLORIDE 114 mmol/L (98-107); GLUCOSE 93 mg/dL (75-110); PHOSPHORUS 3.1 mg/dL (2.5-4.5); POTASSIUM 3.4 mmol/L (3.6-5.0); SODIUM 141.2 mmol/L (137-145); TOTAL PROTEIN 4.8 g/dL (6.3-8.2)
[2018-09-23 06:00] LABS: PLATELET COUNT 18 10^3/uL (150-450)
[2018-09-23] MEDS: MAGNESIUM SULFATE/D5W 1 GM/100 ML RTUPB IV SCH ×3 (06:46→09:08)
[2018-09-23] MEDS: FOLIC ACID 1 MG TABLET PO SCH (09:08)
[2018-09-23] MEDS: NICOTINE 21 MG/24 HR PATCH.TD24 TD SCH (09:08)
[2018-09-23] MEDS: POTASSIUM CHLORIDE 10 MEQ CAPSULE.ER PO SCH (09:08)
[2018-09-23] MEDS: THIAMINE HCL 100 MG TABLET PO SCH (09:09)
[2018-09-23] MEDS: POTASSI CL 20 MEQ/50 ML RIDER 20 MEQ/50 ML RTUPB IV SCH ×2 (10:32→11:30)
--- NOTE | 2018-09-23 10:52 | PDOC PROGRESS REPORT ---
Subjective Progress Note for:: 09/23/18 Subjective:: Patient states that he got a good night' sleep last night and is feeling much better today. Still with diarrhea. Able to walk to bathroom today without assistance. Great appetite. ROS: No pain. No dyspnea. No nausea. Reason For Visit: ANEMIA, LEUKOPENIA Physical Exam Vital Signs: Temp Pulse Resp BP Pulse Ox 97.5 F 76 22 H 141/90 H 97 09/23/18 10:35 09/23/18 10:35 09/23/18 10:35 09/23/18 10:35 09/23/18 10:35 Intake & Output 09/22/18 09/23/18 09/24/18 06:59 06:59 06:59 Intake Total 3283 3285 630 Balance 3283 3285 630 Weight 71.5 kg 72.9 kg General appearance: PRESENT: well-developed, well-nourished Head exam: PRESENT: normocephalic Respiratory exam: PRESENT: clear to auscultation joe, unlabored Cardiovascular exam: PRESENT: RRR GI/Abdominal exam: PRESENT: soft. ABSENT: tenderness Extremities exam: PRESENT: other - No change in ankles. Chronic skin changes with some erythema. Neurological exam: PRESENT: alert, awake, oriented to person, oriented to place, oriented to time, oriented to situation Psychiatric exam: PRESENT: appropriate affect Skin exam: PRESENT: normal color Results Laboratory Results: 09/23/18 05:20 09/23/18 05:20 09/20/18 09/23/18 09/23/18 11:58 05:20 05:20 WBC 1.0 L* RBC 2.85 L Hgb 8.7 L Hct 25.0 L MCV 88 MCH 30.4 MCHC 34.7 RDW 19.4 H Plt Count 18 L* Sodium 141.2 Potassium 3.4 L Chloride 114 H Carbon Dioxide 19 L Anion Gap 8 BUN 21 H Creatinine 1.01 Est GFR ( Amer) > 60 Est GFR (Non-Af Amer) > 60 Glucose 93 Calcium 7.5 L Phosphorus 3.1 Magnesium 1.1 L* Total Bilirubin 0.2 AST 19 ALT 15 L Alkaline Phosphatase 79 Total Protein 4.8 L Albumin 2.2 L Blood Type A NEGATIVE Antibody Screen NEGATIVE 09/21/18 08:37 NT-Pro-B Natriuret Pep 6250 H Impressions: Chest CT 09/20/18 00:00 IMPRESSION: Left upper lobe lung mass with direct involvement of a couple of ribs. No acute pulmonary infiltrate. Chest X-Ray 09/20/18 11:43 IMPRESSION: Persistent left upper lobe lung mass narrow shows cavitation. No acute infiltrate. Assessment & Plan - Diagnosis (1) Cancer of lung, upper lobe Qualifiers: Laterality: left Qualified Code(s): C34.12 - Malignant neoplasm of upper lobe, left bronchus or lung Is this a current diagnosis for this admission?: Yes Plan: All treatment on hold. (2) Neutropenic fever Is this a current diagnosis for this admission?: Yes Plan: Resolving, on antibiotics. Await resolution of neutropenia. (3) C. difficile diarrhea Is this a current diagnosis for this admission?: Yes Plan: Continue oral vancomycin (4) Anemia Qualifiers: Anemia type: bone marrow failure Bone marrow failure anemia type: pancytopenia, antineoplastic chemotherapy-induced Qualified Code(s): D61.810 - Antineoplastic chemotherapy induced pancytopenia; T45.1X5A - Adverse effect of antineoplastic and immunosuppressive drugs, initial encounter Is this a current diagnosis for this admission?: Yes Plan: pancytopenia. Receiving platelet transfusions as PLT were <20. Continue transfusion support as indicated.
--- NOTE | 2018-09-23 12:26 | PDOC PROGRESS REPORT ---
Subjective Progress Note for:: 09/23/18 Subjective:: Mikael WHEATLEY II is a 53 year old male with a PMH significant for left upper lobe lung mass (undergoing chemotherapy, first treatment 09/12/2018), multiple DVTs/PE, on chronic Xarelto, chronic anemia, tobacco dependence, alcohol dependence. Patient is admitted to the hospitalist service for neutropenic fever and C. difficile. The patient was seen this morning on rounds. He is resting comfortably in bed on room air, states he feels well today. He is in good spirits. Reports his fatigue has improved. He reports he has a good appetite. States he had multiple liquid bowel movements yesterday, has not had any today but is passing gas. Denies any complaints at this time. Hgb remains > 8.0 not requiring transfusion today. Platelets decreased 48k-->24k-->33k-->18k, requiring 2U platelets . Electrolytes (potassium, magnesium) remain low. Oncology has been consulted, continue to appreciate their recommendations. The source of the patient's neutropentic fever is likely the CDIFF infection. Plan to continue PO vancomycin Reason For Visit: ANEMIA, LEUKOPENIA Physical Exam Vital Signs: Temp Pulse Resp BP Pulse Ox 97.5 F 76 22 H 141/90 H 97 09/23/18 10:35 09/23/18 10:35 09/23/18 10:35 09/23/18 10:35 09/23/18 10:35 Intake & Output 09/22/18 09/23/18 09/24/18 06:59 06:59 06:59 Intake Total 3283 3285 730 Balance 3283 3285 730 Weight 71.5 kg 72.9 kg General appearance: PRESENT: thin Eye exam: PRESENT: conjunctiva pale, PERRLA Mouth exam: PRESENT: moist, tongue midline Teeth exam: PRESENT: poor dentation Neck exam: PRESENT: full ROM Respiratory exam: PRESENT: clear to auscultation joe, symmetrical, unlabored Cardiovascular exam: PRESENT: RRR Pulses: PRESENT: normal radial pulses. ABSENT: +1 pedal pulses bilateral - Diff icult to assess due to lower extremity lymphedema Vascular exam: PRESENT: pallor GI/Abdominal exam: PRESENT: normal bowel sounds, soft. ABSENT: distended, tenderness Rectal exam: PRESENT: deferred Extremities exam: PRESENT: full ROM, pedal edema Musculoskeletal exam: PRESENT: ambulatory, full ROM Neurological exam: PRESENT: alert, awake, oriented to person, oriented to place, oriented to time, oriented to situation Psychiatric exam: PRESENT: appropriate affect. ABSENT: homicidal ideation, suicidal ideation Skin exam: PRESENT: pallor, other - brown discoloration and thickening of the skin Results Laboratory Results: 09/23/18 05:20 09/23/18 05:20 09/20/18 09/23/18 09/23/18 11:58 05:20 05:20 WBC 1.0 L* RBC 2.85 L Hgb 8.7 L Hct 25.0 L MCV 88 MCH 30.4 MCHC 34.7 RDW 19.4 H Plt Count 18 L* Sodium 141.2 Potassium 3.4 L Chloride 114 H Carbon Dioxide 19 L Anion Gap 8 BUN 21 H Creatinine 1.01 Est GFR ( Amer) > 60 Est GFR (Non-Af Amer) > 60 Glucose 93 Calcium 7.5 L Phosphorus 3.1 Magnesium 1.1 L* Total Bilirubin 0.2 AST 19 ALT 15 L Alkaline Phosphatase 79 Total Protein 4.8 L Albumin 2.2 L Blood Type A NEGATIVE Antibody Screen NEGATIVE 09/23/18 11:10 WBC RBC Hgb Hct MCV MCH MCHC RDW Plt Count Sodium Potassium Chloride Carbon Dioxide Anion Gap BUN Creatinine Est GFR ( Amer) Est GFR (Non-Af Amer) Glucose Calcium Phosphorus Magnesium Total Bilirubin AST ALT Alkaline Phosphatase Total Protein Albumin Blood Type A NEGATIVE Antibody Screen 09/21/18 08:37 NT-Pro-B Natriuret Pep 6250 H Impressions: Chest CT 09/20/18 00:00 IMPRESSION: Left upper lobe lung mass with direct involvement of a couple of ribs. No acute pulmonary infiltrate. Chest X-Ray 09/20/18 11:43 IMPRESSION: Persistent left upper lobe lung mass narrow shows cavitation. No acute infiltrate. Status: Imported from PACS Assessment and Plan - Diagnosis (1) C. difficile diarrhea Is this a current diagnosis for this admission?: Yes Plan: Diarrhea in an immunocompromised patient who just received chemotherapy 2 weeks ago (+) CDIFF PCR Started on PO vancomycin This is patient's first incident, treatment guidelines are 10 days of PO vancomycin 125mg PO QID x 10 days Will need to remain inpatient as long as the patient is experiencing diarrhea (2) Neutropenic fever Is this a current diagnosis for this admission?: Yes Plan: Neutropenic fever in a cancer patient who recently received his first chemotherapy treatment (09/12/2018) Fever is likely the result of direct toxic effects of chemotherapy in addition to the underlying malignancy Source of infection is likely CDIFF CT scan chest negative for PNA UA negative Patient does not have any indwelling devices or open wounds as potential sources of infection Systolic murmur auscultated on exam, ?possible infectious endocarditis? or chemotherapy induced cardiotoxicity ECHOcardiogram done yesterday, results are still pending Blood cultures negative at 48 hours Tylenol for fever control (3) Hypocalcemia Is this a current diagnosis for this admission?: Yes Plan: Improving 6.5-->7.5 Could be secondary to nutritional deficits vs. side effects of chemotherapy Requiring calcium gluconate yesterday Will follow up with chemistry with AM labs (4) Hypomagnesemia Is this a current diagnosis for this admission?: Yes Plan: Slightly improved but still very low Could be secondary to nutritional deficits Magnesium 1.3 upon arrival, today 1.0 Transfuse IV Magnesium sulfate today Follow daily chemistries (5) Anemia Qualifiers: Anemia type: bone marrow failure Bone marrow failure anemia type: pancytopenia, antineoplastic chemotherapy-induced Qualified Code(s): D61.810 - Antineoplastic chemotherapy induced pancytopenia; T45.1X5A - Adverse effect of antineoplastic and immunosuppressive drugs, initial encounter Is this a current diagnosis for this admission?: Yes Plan: Multifactorial Anemia could be stemming from recent chemotherapy treatment, history of mal ignancy, heavy EtOH dependence -possible component of nutritional deficiency No evidence of gross blood loss Patient was admitted for, among other things, anemia 2 months ago. Hgb was 6.9. Now s/p 4U PRBCs this hospitalization, patient remains anemic (Hgb 8.1), but no need for transfusion today. Thiamine and folate p.o. daily Monitor serial CBCs and transfuse for Hgb<8.0 (6) Cancer of lung, upper lobe Qualifiers: Laterality: left Qualified Code(s): C34.12 - Malignant neoplasm of upper lobe, left bronchus or lung Is this a current diagnosis for this admission?: Yes Plan: Currently undergoing chemotherapy, received first treatment 09/12/[address] Arriaga, management per his expertise (7) Cavitary lesion of lung Is this a current diagnosis for this admission?: Yes Plan: Seen on CXR Lesion noted to be expanding on chest CT June [address] upon admission only shows EUSEBIO lung mass, no infiltrate or pleural effusion (8) EtOH dependence Qualifiers: Substance use status: uncomplicated Qualified Code(s): F10.20 - Alcohol dependence, uncomplicated Is this a current diagnosis for this admission?: Yes Plan: Patient admits to drinking 8 shots per day Denies history of alcohol withdrawal seizures or DT Last drink over 72 hours ago, no evidence of alcohol withdrawal symptoms daily p.o. thiamine and folate Seizure precautions (9) History of DVT of lower extremity Is this a current diagnosis for this admission?: Yes Plan: History of multiple DVTs Home dose Xarelto currently on hold due to severe anemia (10) Lymphedema Is this a current diagnosis for this admission?: Yes Plan: Chronic lymphedema Keep extremities elevated Offered referral to lymphedema specialist, patient declined (11) Tobacco dependence Is this a current diagnosis for this admission?: Yes Plan: Patient admits to continuing to smoke despite lung cancer diagnosis [id number] smoking history We will offer nicotine patch - Time Time Spent with patient: 15-24 minutes Medications reviewed and adjusted accordingly: Yes Anticipated discharge: Home Within: Other - UNTIL STABILIZED - Inpatient Certification Based on my medical assessment, after consideration of the patient's comorbidities, presenting symptoms, or acuity I expect that the services needed warrant INPATIENT care.: Yes I certify that my determination is in accordance with my understanding of Medicare's requirements for reasonable and necessary INPATIENT services [42 CFR 412.3e].: Yes Medical Necessity: Risk of Complication if Not Cared For in Hospital, Other - NEED FOR PO ANTIBIOTICS FOR ACTIVE CDIFF INFECTION
[2018-09-23] MEDS: NORMAL SALINE 1000 ML 1,000 ML IV PRN (13:51)
[2018-09-23 15:42] LABS: ABSOLUTE EOSINOPHILS # (AUTO) 0.1 10^3/uL (0.0-0.6); ABSOLUTE LYMPHOCYTES (AUTO) 0.5 10^3/uL (0.5-4.7); ABSOLUTE MONOCYTES (AUTO) 0.1 10^3/uL (0.1-1.4); ABSOLUTE NEUT (AUTO) 0.4 10^3/uL (1.7-8.2); BASOPHILS % (AUTO) 0.6 % (0-2); EOSINOPHILS % (AUTO) 5.6 % (0-6); HEMATOCRIT 25.3 % (37.9-51.0); HEMOGLOBIN 8.5 g/dL (13.5-17.0); LYMPHOCYTES % (AUTO) 47.5 % (13-45); MEAN CORPUSCULAR HEMOGLOBIN 29.6 pg (27.0-33.4); MEAN CORPUSCULAR HGB CONC 33.6 g/dL (32.0-36.0); MEAN CORPUSCULAR VOLUME 88 fl (80-97); RED BLOOD COUNT 2.87 10^6/uL (4.35-5.55); RED CELL DISTRIBUTION WIDTH 18.9 % (11.5-14.0); SEGMENTED NEUTROPHILS % (AUTO) 33.3 % (42-78); TOTAL CELLS COUNTED % (AUTO) 100 %
[2018-09-23 16:18] LABS: PLATELET COUNT 36 10^3/uL (150-450)
[2018-09-23 16:20] LABS: WHITE BLOOD COUNT 1.1 10^3/uL (4.0-10.5)
[2018-09-23 16:21] LABS: ANISOCYTOSIS 2+; OVALOCYTES SLIGHT; PLATELET COMMENT DECREASED; POIKILOCYTOSIS SLIGHT
[2018-09-24] MEDS: NORMAL SALINE 1000 ML 1,000 ML IV PRN ×2 (03:06→17:09)
[2018-09-24 04:31] LABS: HEMATOCRIT 23.8 % (37.9-51.0); MEAN CORPUSCULAR HEMOGLOBIN 29.5 pg (27.0-33.4); MEAN CORPUSCULAR HGB CONC 33.5 g/dL (32.0-36.0); MEAN CORPUSCULAR VOLUME 88 fl (80-97); RED BLOOD COUNT 2.71 10^6/uL (4.35-5.55); RED CELL DISTRIBUTION WIDTH 18.2 % (11.5-14.0)
[2018-09-24 04:47] LABS: ALANINE AMINOTRANSFERASE 21 U/L (21-72); ALBUMIN 2.1 g/dL (3.5-5.0); ALKALINE PHOSPHATASE 80 U/L (38-126); ANION GAP 6 (5-19); ASPARTATE AMINO TRANSFERASE 16 U/L (17-59); BILIRUBIN,DIRECT 0.2 mg/dL (0.0-0.4); BILIRUBIN,TOTAL 0.3 mg/dL (0.2-1.3); BLOOD UREA NITROGEN 18 mg/dL (7-20); CALCIUM 7.6 mg/dL (8.4-10.2); CARBON DIOXIDE 21 mmol/L (22-30); CHLORIDE 115 mmol/L (98-107); GLUCOSE 90 mg/dL (75-110); PHOSPHORUS 3.5 mg/dL (2.5-4.5); POTASSIUM 3.6 mmol/L (3.6-5.0); SODIUM 142.4 mmol/L (137-145); TOTAL PROTEIN 4.7 g/dL (6.3-8.2)
[2018-09-24 04:50] LABS: PLATELET COUNT 28 10^3/uL (150-450); WHITE BLOOD COUNT 1.2 10^3/uL (4.0-10.5)
[2018-09-24] MEDS: MAGNESIUM SULFATE 1 GM/D5W 100 ML IV SCH ×2 (05:35→06:45)
[2018-09-24] MEDS: VANCOMYCIN HCL INJ 500 MG VIAL PO SCH ×4 (05:35→23:06)
[2018-09-24] MEDS ORDERED: POTASSI CL 20 MEQ/50 ML RIDER 20 MEQ/50 ML RTUPB IV ONE (08:00)
[2018-09-24] MEDS: NICOTINE 21 MG/24 HR PATCH.TD24 TD SCH (09:26)
[2018-09-24] MEDS: THIAMINE HCL 100 MG TABLET PO SCH (09:26)
[2018-09-24] MEDS: FOLIC ACID 1 MG TABLET PO SCH (09:26)
[2018-09-24] MEDS: POTASSIUM CHLORIDE 10 MEQ CAPSULE.ER PO SCH (09:26)
--- NOTE | 2018-09-24 11:12 | PDOC PROGRESS REPORT ---
Subjective Progress Note for:: 09/24/18 Subjective:: Mikael WHEATLEY II is a 53 year old male with a PMH significant for left upper lobe lung mass (undergoing chemotherapy, first treatment 09/12/2018), multiple DVTs/PE, on chronic Xarelto, chronic anemia, tobacco dependence, alcohol dependence. Patient is admitted to the hospitalist service for neutropenic fever and C. difficile. The patient was seen this morning on rounds. He is resting comfortably in bed on room air, states he feels well today. He is in good spirits. States his diarrhea is beginning to solidify. Denies any complaints at this time. Hgb remains > 8.0 not requiring transfusion today. Platelets increased 18k-->24k, no transfusion today. Electrolytes (potassium, magnesium) remain low. Oncology has been consulted, continue to appreciate their recommendations. The source of the patient's neutropentic fever (TMAX 101.6) is likely the CDIFF infection. Plan to continue PO vancomycin. Will need to remain inpatient until diarrhea subsides and pancytopenia improves. Reason For Visit: ANEMIA, LEUKOPENIA Physical Exam Vital Signs: Temp Pulse Resp BP Pulse Ox 97.5 F 70 16 150/80 H 96 09/24/18 07:26 09/24/18 07:26 09/24/18 07:26 09/24/18 07:26 09/24/18 07:26 Intake & Output 09/23/18 09/24/18 09/25/18 06:59 06:59 06:59 Intake Total 3285 4333 690 Output Total 2 Balance 3285 4331 690 Weight 72.9 kg 72.6 kg General appearance: PRESENT: thin Eye exam: PRESENT: conjunctiva pink, PERRLA Mouth exam: PRESENT: moist, tongue midline Teeth exam: PRESENT: poor dentation Neck exam: PRESENT: full ROM Respiratory exam: PRESENT: clear to auscultation joe, symmetrical, unlabored Cardiovascular exam: PRESENT: RRR Pulses: PRESENT: normal radial pulses. ABSENT: +1 pedal pulses bilateral - unabel to assess due to severe lymphedema Vascular exam: PRESENT: pallor GI/Abdominal exam: PRESENT: normal bowel sounds, soft. ABSENT: distended, tenderness Rectal exam: PRESENT: deferred Extremities exam: PRESENT: full ROM, pedal edema - severe Musculoskeletal exam: PRESENT: ambulatory, full ROM Neurological exam: PRESENT: alert, awake, oriented to person, oriented to place, oriented to time, oriented to situation Psychiatric exam: PRESENT: appropriate affect Skin exam: PRESENT: dry, intact, other - brown discoloration and thickening of the skin secondary to PVD and lymphedema Results Laboratory Results: 09/24/18 03:54 09/24/18 03:54 09/23/18 09/23/18 09/24/18 11:10 15:32 03:54 WBC 1.1 L* 1.2 L* RBC 2.87 L 2.71 L Hgb 8.5 L 8.0 L Hct 25.3 L 23.8 L MCV 88 88 MCH 29.6 29.5 MCHC 33.6 33.5 RDW 18.9 H 18.2 H Plt Count 36 L 28 L* Seg Neutrophils % 33.3 L Lymphocytes % 47.5 H Monocytes % 13.0 Eosinophils % 5.6 Basophils % 0.6 Absolute Neutrophils 0.4 L Absolute Lymphocytes 0.5 Absolute Monocytes 0.1 Absolute Eosinophils 0.1 Absolute Basophils 0.0 Sodium Potassium Chloride Carbon Dioxide Anion Gap BUN Creatinine Est GFR ( Amer) Est GFR (Non-Af Amer) Glucose Calcium Phosphorus Magnesium Total Bilirubin AST ALT Alkaline Phosphatase Total Protein Albumin Blood Type A NEGATIVE 09/24/18 03:54 WBC RBC Hgb Hct MCV MCH MCHC RDW Plt Count Seg Neutrophils % Lymphocytes % Monocytes % Eosinophils % Basophils % Absolute Neutrophils Absolute Lymphocytes Absolute Monocytes Absolute Eosinophils Absolute Basophils Sodium 142.4 Potassium 3.6 Chloride 115 H Carbon Dioxide 21 L Anion Gap 6 BUN 18 Creatinine 0.95 Est GFR ( Amer) > 60 Est GFR (Non-Af Amer) > 60 Glucose 90 Calcium 7.6 L Phosphorus 3.5 Magnesium 1.3 L Total Bilirubin 0.3 AST 16 L ALT 21 Alkaline Phosphatase 80 Total Protein 4.7 L Albumin 2.1 L Blood Type 09/21/18 04:28 Stool - Stool - Final 09/21/18 04:28 Stool - Stool Stool Culture - Final NO SALMONELLA, SHIGELLA, CAMPYLOBACTER, OR E.COLI 0157 RECOVERED. NEGATIVE FOR SHIGA TOXINS 1&2. 09/21/18 14:47 Clean Catch Midstream Urine Culture - Final NO GROWTH 2 DAYS 09/21/18 08:37 NT-Pro-B Natriuret Pep 6250 H Impressions: Chest CT 09/20/18 00:00 IMPRESSION: Left upper lobe lung mass with direct involvement of a couple of ribs. No acute pulmonary infiltrate. Chest X-Ray 09/20/18 11:43 IMPRESSION: Persistent left upper lobe lung mass narrow shows cavitation. No acute infiltrate. Status: Imported from PACS Assessment and Plan - Diagnosis (1) C. difficile diarrhea Is this a current diagnosis for this admission?: Yes Plan: Diarrhea in an immunocompromised patient who just received chemotherapy 2 weeks ago (+) CDIFF PCR Started on PO vancomycin This is patient's first incident, treatment guidelines are 10 days of PO vancomycin 125mg PO QID x 10 days Will need to remain inpatient as long as the patient is experiencing diarrhea (2) Neutropenic fever Is this a current diagnosis for this admission?: Yes Plan: GRCS753.6 Now afebrile for 48hrs+ Neutropenic fever in a cancer patient who recently received his first chemotherapy treatment (09/12/2018) Fever is likely the result of direct toxic effects of chemotherapy in addition to the underlying malignancy Source of infection is likely CDIFF CT scan chest negative for PNA UA negative Patient does not have any indwelling devices or open wounds as potential sources of infection Systolic murmur auscultated on exam, ?possible infectious endocarditis? or chemotherapy induced cardiotoxicity ECHOcardiogram done 2 days ago, results are still pending Blood cultures negative at 72 hours Tylenol for fever control (3) Hypocalcemia Is this a current diagnosis for this admission?: Yes Plan: Resolved Corrected calcium 9.12 Hypocalcemia could be secondary to nutritional deficits vs. side effects of chemotherapy No need for calcium gluconate today Will follow up with chemistry with AM labs (4) Hypomagnesemia Is this a current diagnosis for this admission?: Yes Plan: Slightly improved but still very low Could be secondary to nutritional deficits Magnesium 1.3 upon arrival, today 1.3 Transfuse IV Magnesium sulfate today Follow daily chemistries (5) Anemia Qualifiers: Anemia type: bone marrow failure Bone marrow failure anemia type: pancytopenia, antineoplastic chemotherapy-induced Qualified Code(s): D61.810 - Antineoplastic chemotherapy induced pancytopenia; T45.1X5A - Adverse effect of antineoplastic and immunosuppressive drugs, initial encounter Is this a current diagnosis for this admission?: Yes Plan: Multifactorial Anemia could be stemming from recent chemotherapy treatment, history of malignancy, heavy EtOH dependence -possible component of nutritional deficiency No evidence of gross blood loss Patient was admitted for, among other things, anemia 2 months ago. Hgb was 6.9. Now s/p 4U PRBCs this hospitalization, patient remains anemic (Hgb 8.0), but no need for transfusion today. Thiamine and folate p.o. daily Monitor serial CBCs and transfuse for Hgb<8.0 (6) Cancer of lung, upper lobe Qualifiers: Laterality: left Qualified Code(s): C34.12 - Malignant neoplasm of upper lobe, left bronchus or lung Is this a current diagnosis for this admission?: Yes Plan: Currently undergoing chemotherapy, received first treatment 09/12/[address] Arriaga, management per his expertise (7) Cavitary lesion of lung Is this a current diagnosis for this admission?: Yes Plan: Seen on CXR Lesion noted to be expanding on chest CT June [address] upon admission only shows EUSEBIO lung mass, no infiltrate or pleural effusion (8) EtOH dependence Qualifiers: Substance use status: uncomplicated Qualified Code(s): F10.20 - Alcohol dependence, uncomplicated Is this a current diagnosis for this admission?: Yes Plan: Patient admits to drinking 8 shots per day Denies history of alcohol withdrawal seizures or DT Last drink over 72 hours ago, no evidence of alcohol withdrawal symptoms daily p.o. thiamine and folate Seizure precautions (9) History of DVT of lower extremity Is this a current diagnosis for this admission?: Yes Plan: History of multiple DVTs Home dose Xarelto currently on hold due to severe anemia (10) Lymphedema Is this a current diagnosis for this admission?: Yes Plan: Chronic lymphedema Keep extremities elevated Offered referral to lymphedema specialist, patient declined (11) Tobacco dependence Is this a current diagnosis for this admission?: Yes Plan: Patient admits to continuing to smoke despite lung cancer diagnosis [id number] smoking history We will offer nicotine patch - Time Time Spent with patient: 15-24 minutes Medications reviewed and adjusted accordingly: Yes Anticipated discharge: Home - Inpatient Certification Based on my medical assessment, after consideration of the patient's comorbidities, presenting symptoms, or acuity I expect that the services needed warrant INPATIENT care.: Yes I certify that my determination is in accordance with my understanding of Medicare's requirements for reasonable and necessary INPATIENT services [42 CFR 412.3e].: Yes Medical Necessity: Need Close Monitoring Due to Risk of Patient Decompensation, Need For Continuous Telemetry Monitoring, Risk of Complication if Not Cared For in Hospital
--- NOTE | 2018-09-24 20:59 | XCELERA REPORT ---
[address] [address] Transthoracic Echocardiogram Report Name: Mikael WHEATLEY II JR Age: 53 yrs Gender: Male : 1965 Patient Status: Inpatient Patient Location: [facility]A Study Date: 09/21/2018 07:15 PM Height: 71 in Weight: 149 lb BSA: 1.9 m2 Procedure: A complete two-dimensional transthoracic echocardiogram was performed (2D, M-mode, spectral and color flow Doppler). The study was technically adequate with some images being suboptimal in quality. Reason For Study: everton murdede Ordering Physician: ED MODI Performed By: Jennifer Lopez Interpretation Summary The left ventricular ejection fraction is normal. There is borderline concentric left ventricular hypertrophy. The left ventricle is grossly normal size. Doppler measurements suggest normal left ventricular diastolic function No regional wall motion abnormalities noted. The right ventricular systolic function is normal. The left atrial size is normal. The right atrium is normal. There is a mild amount of mitral regurgitation There is no mitral valve stenosis. There is no aortic valve stenosis No aortic regurgitation is present. There is a trace or physiologic amount of tricuspid regurgitation Tricuspid regurgitation jet envelope not well defined to measure RV systolic pressure accurately. There is no tricuspid stenosis. There is a mild amount of pulmonic regurgitation The aortic root is not well visualized but is probably normal size. The inferior vena cava appeared normal and decreased > 50% with respiration (RAP 5-10 mmHg) There is no pericardial effusion. No definite vegetations noted but if clinical suspicion is high, then consider RIC and multiple blood cultures. MMode/2D Measurements & Calculations RVDd: 2.7 cm LVIDd: 4.5 cm FS: 29.9 % Ao root diam: 3.6 cm IVSd: 1.3 cm LVIDs: 3.2 cm EDV(Teich): Ao root area: 94.3 ml LVPWd: 1.0 cm 10.4 cm2 ESV(Teich): LA dimension: 3.8 cm 40.4 ml EF(Teich): 57.2 % LVLd ap4: 8.8 cm SV(MOD-sp4): EDV(MOD-sp4): 65.0 ml 106.0 ml LVLs ap4: 7.0 cm ESV(MOD-sp4): 41.0 ml EF(MOD-sp4): 61.3 % Doppler Measurements & Calculations MV E max jakob: MV P1/2t max jakob: Ao V2 max: LV V1 max P.9 cm/sec 94.7 cm/sec 168.9 cm/sec 7.4 mmHg MV A max jakob: MV P1/2t: 45.4 msec Ao max PG: LV V1 max: 64.7 cm/sec 11.4 mmHg 135.7 cm/sec MVA(P1/2t): 4.8 cm2 MV E/A: 1.3 MV dec slope: 611.2 cm/sec2 MV dec time: 0.18 sec PA V2 max: PI end-d jakob: TR max jakob: MV P1/2t-pr_phl: 84.7 cm/sec 84.7 cm/sec 223.3 cm/sec 45.4 msec PA max PG: TR max P.9 mmHg 19.9 mmHg Left Ventricle The left ventricle is grossly normal size. There is borderline concentric left ventricular hypertrophy. The left ventricular ejection fraction is normal. Doppler measurements suggest normal left ventricular diastolic function. No regional wall motion abnormalities noted. Right Ventricle The right ventricle is grossly normal size. There is normal right ventricular wall thickness. The right ventricular systolic function is normal. Atria The right atrium is normal. The left atrial size is normal. Interarterial septum not well visualized and not well dopplered. Cannot comment on ASD/PFO presence. Mitral Valve The mitral valve is grossly normal. There is no mitral valve stenosis. There is a mild amount of mitral regurgitation. Aortic Valve The aortic valve is grossly normal. There is no aortic valve stenosis. No aortic regurgitation is present. Tricuspid Valve The tricuspid valve is not well visualized, but is grossly normal. There is no tricuspid stenosis. There is a trace or physiologic amount of tricuspid regurgitation. Tricuspid regurgitation jet envelope not well defined to measure RV systolic pressure accurately. Pulmonic Valve The pulmonic valve is not well visualized. There is a mild amount of pulmonic regurgitation. Great Vessels The aortic root is not well visualized but is probably normal size. The inferior vena cava appeared normal and decreased > 50% with respiration (RAP 5-10 mmHg). Effusions There is no pericardial effusion. Incidental Findings No definite vegetations noted but if clinical suspicion is high, then consider RIC and multiple blood cultures. : ED MODI > Harvinder Tilley
[2018-09-25 05:25] LABS: HEMATOCRIT 23.5 % (37.9-51.0); HEMOGLOBIN 8.1 g/dL (13.5-17.0); MEAN CORPUSCULAR HEMOGLOBIN 30.4 pg (27.0-33.4); MEAN CORPUSCULAR HGB CONC 34.4 g/dL (32.0-36.0); MEAN CORPUSCULAR VOLUME 89 fl (80-97); RED BLOOD COUNT 2.65 10^6/uL (4.35-5.55); RED CELL DISTRIBUTION WIDTH 18.5 % (11.5-14.0)
[2018-09-25 05:49] LABS: ALANINE AMINOTRANSFERASE 17 U/L (21-72); ALBUMIN 2.1 g/dL (3.5-5.0); ALKALINE PHOSPHATASE 77 U/L (38-126); ASPARTATE AMINO TRANSFERASE 17 U/L (17-59); BILIRUBIN,DIRECT 0.3 mg/dL (0.0-0.4); BILIRUBIN,TOTAL 0.3 mg/dL (0.2-1.3); BLOOD UREA NITROGEN 14 mg/dL (7-20); CALCIUM 7.7 mg/dL (8.4-10.2); CARBON DIOXIDE 21 mmol/L (22-30); CHLORIDE 115 mmol/L (98-107); GLUCOSE 84 mg/dL (75-110); PHOSPHORUS 3.6 mg/dL (2.5-4.5); POTASSIUM 3.4 mmol/L (3.6-5.0); TOTAL PROTEIN 4.7 g/dL (6.3-8.2)
[2018-09-25 05:50] LABS: ANION GAP 5 (5-19); SODIUM 141.1 mmol/L (137-145)
[2018-09-25] MEDS: VANCOMYCIN HCL INJ 500 MG VIAL PO SCH ×3 (05:52→18:00)
[2018-09-25] MEDS: NORMAL SALINE 1000 ML 1,000 ML IV PRN ×2 (05:52→18:00)
[2018-09-25 06:11] LABS: PLATELET COUNT 19 10^3/uL (150-450); WHITE BLOOD COUNT 1.5 10^3/uL (4.0-10.5)
--- NOTE | 2018-09-25 08:26 | PDOC PROGRESS REPORT ---
Subjective Progress Note for:: 09/25/18 Subjective:: Seems better today, diarrhea is improving. Reason For Visit: ANEMIA, LEUKOPENIA Physical Exam Vital Signs: Temp Pulse Resp BP Pulse Ox 98.2 F 76 26 H 155/77 H 98 09/25/18 08:07 09/25/18 08:07 09/25/18 07:49 09/25/18 08:07 09/25/18 08:07 Intake & Output 09/24/18 09/25/18 09/26/18 06:59 06:59 06:59 Intake Total 4333 3014 286 Output Total 2 Balance 4331 3014 286 Weight 72.6 kg 73 kg General appearance: PRESENT: no acute distress, well-developed, well-nourished Head exam: PRESENT: atraumatic, normocephalic Eye exam: PRESENT: conjunctiva pink, EOMI, PERRLA. ABSENT: scleral icterus Ear exam: PRESENT: normal external ear exam Mouth exam: PRESENT: moist, tongue midline Neck exam: ABSENT: carotid bruit, JVD, lymphadenopathy, thyromegaly Respiratory exam: PRESENT: clear to auscultation joe. ABSENT: rales, rhonchi, wheezes Cardiovascular exam: PRESENT: RRR. ABSENT: diastolic murmur, rubs, systolic murmur Pulses: PRESENT: normal dorsalis pedis pul Vascular exam: PRESENT: normal capillary refill GI/Abdominal exam: PRESENT: normal bowel sounds, soft. ABSENT: distended, guarding, mass, organolmegaly, rebound, tenderness Rectal exam: PRESENT: deferred Extremities exam: PRESENT: full ROM. ABSENT: calf tenderness, clubbing, pedal edema Neurological exam: PRESENT: alert, awake, oriented to person, oriented to place, oriented to time, oriented to situation, CN II-XII grossly intact. ABSENT: motor sensory deficit Psychiatric exam: PRESENT: appropriate affect, normal mood. ABSENT: homicidal ideation, suicidal ideation Skin exam: PRESENT: dry, intact, warm. ABSENT: cyanosis, rash Results Laboratory Results: 09/25/18 04:53 09/25/18 04:53 09/23/18 09/25/18 09/25/18 11:10 04:53 04:53 WBC 1.5 L* RBC 2.65 L Hgb 8.1 L Hct 23.5 L MCV 89 MCH 30.4 MCHC 34.4 RDW 18.5 H Plt Count 19 L* Sodium 141.1 Potassium 3.4 L Chloride 115 H Carbon Dioxide 21 L Anion Gap 5 BUN 14 Creatinine 0.90 Est GFR ( Amer) > 60 Est GFR (Non-Af Amer) > 60 Glucose 84 Calcium 7.7 L Phosphorus 3.6 Magnesium 1.3 L Total Bilirubin 0.3 AST 17 ALT 17 L Alkaline Phosphatase 77 Total Protein 4.7 L Albumin 2.1 L Blood Type A NEGATIVE 09/21/18 08:37 NT-Pro-B Natriuret Pep 6250 H Impressions: Chest CT 09/20/18 00:00 IMPRESSION: Left upper lobe lung mass with direct involvement of a couple of ribs. No acute pulmonary infiltrate. Chest X-Ray 09/20/18 11:43 IMPRESSION: Persistent left upper lobe lung mass narrow shows cavitation. No acute infiltrate. Assessment & Plan - Diagnosis (1) C. difficile diarrhea Is this a current diagnosis for this admission?: Yes Plan: Improving, continue with current therapy per hospitalist team (2) Cancer of lung, upper lobe Qualifiers: Laterality: left Qualified Code(s): C34.12 - Malignant neoplasm of upper lobe, left bronchus or lung Is this a current diagnosis for this admission?: Yes Plan: Plan to continue therapy as an outpatient but patient will need to recover fully from this event as well as cytopenias have to fully recover. (3) Pancytopenia Is this a current diagnosis for this admission?: Yes Plan: Improved, transfuse packed red blood if hemoglobin under 7, transfuse platelets if under 10. (4) Anemia Qualifiers: Anemia type: bone marrow failure Bone marrow failure anemia type: pancytopenia, antineoplastic chemotherapy-induced Qualified Code(s): D61.810 - Antineoplastic chemotherapy induced pancytopenia; T45.1X5A - Adverse effect of antineoplastic and immunosuppressive drugs, initial encounter Is this a current diagnosis for this admission?: Yes Plan: Improved posttransfusion, will need to monitor closely (5) Neutropenic fever Is this a current diagnosis for this admission?: Yes Plan: Improving, awaiting differential from today, added to labs today, added to labs daily as well.
[2018-09-25 08:35] LABS: ABSOLUTE LYMPHOCYTES# (MANUAL) 0.8 10^3/uL (0.5-4.7); ABSOLUTE NEUTROPHILS# (MANUAL) 0.7 10^3/uL (1.7-8.2); BASOPHILS % (MANUAL) 0 % (0-2); EOSINOPHILS % (MANUAL) 0 % (0-6); LYMPHOCYTES % (MANUAL) 50 % (13-45); MONOCYTES % (MANUAL) 2 % (3-13); SEGMENTED NEUTROPHILS % (MAN) 48 % (42-78); TOTAL CELLS COUNTED 50
[2018-09-25 08:38] LABS: ANISOCYTOSIS 2+; HYPOCHROMASIA SLIGHT; PLATELET COMMENT DECREASED; POIKILOCYTOSIS SLIGHT; SCHISTOCYTES SLIGHT
[2018-09-25] MEDS ORDERED: POTASSI CL 20 MEQ/50 ML RIDER 20 MEQ/50 ML RTUPB IV ONE (08:45)
[2018-09-25] MEDS: FOLIC ACID 1 MG TABLET PO SCH (10:15)
[2018-09-25] MEDS: POTASSIUM CHLORIDE 10 MEQ CAPSULE.ER PO SCH (10:15)
[2018-09-25] MEDS: NICOTINE 21 MG/24 HR PATCH.TD24 TD SCH (10:15)
[2018-09-25] MEDS: THIAMINE HCL 100 MG TABLET PO SCH (10:16)
[2018-09-25] MEDS: MAGNESIUM SULFATE/D5W 1 GM/100 ML RTUPB IV SCH ×2 (10:17→13:00)
[2018-09-25] MEDS ORDERED: MAGNESIUM SULFATE/D5W 1 GM/100 ML RTUPB IV ONE (12:51)
--- NOTE | 2018-09-25 14:40 | PDOC PROGRESS REPORT ---
Addendum entered and electronically signed by ED MODI NP 09/25/18 14:45: Assessment and Plan - Assessment and Plan (1) C. difficile diarrhea Is this a current diagnosis for this admission?: Yes (2) Neutropenic fever Is this a current diagnosis for this admission?: Yes (3) Hypocalcemia Is this a current diagnosis for this admission?: Yes (4) Hypomagnesemia Is this a current diagnosis for this admission?: Yes (5) Anemia Qualifiers: Anemia type: bone marrow failure Bone marrow failure anemia type: pancytopenia, antineoplastic chemotherapy-induced Qualified Code(s): D61.810 - Antineoplastic chemotherapy induced pancytopenia; T45.1X5A - Adverse effect of antineoplastic and immunosuppressive drugs, initial encounter Is this a current diagnosis for this admission?: Yes (6) Cancer of lung, upper lobe Qualifiers: Laterality: left Qualified Code(s): C34.12 - Malignant neoplasm of upper lobe, left bronchus or lung Is this a current diagnosis for this admission?: Yes (7) Cavitary lesion of lung Is this a current diagnosis for this admission?: Yes (8) EtOH dependence Qualifiers: Substance use status: uncomplicated Qualified Code(s): F10.20 - Alcohol dependence, uncomplicated Is this a current diagnosis for this admission?: Yes (9) History of DVT of lower extremity Is this a current diagnosis for this admission?: Yes (10) Lymphedema Is this a current diagnosis for this admission?: Yes (11) Tobacco dependence Is this a current diagnosis for this admission?: Yes (12) Thrombocytopenia Is this a current diagnosis for this admission?: Yes Plan: Thrombocytopenia could be stemming from recent chemotherapy treatment and history of malignancy Now s/p 1U platelets this hospitalization, patient remains thrombocytopenic (platelets 19k), plan to transfuse 2 U today Monitor serial CBCs. Per Oncology recommendations, transfuse for platelets<10k - Time Spent with Patient Medications reviewed and adjusted accordingly: Yes - Disposition Anticipated Discharge: Home Original Note: Subjective Progress Note for:: 09/25/18 Subjective:: Mikael WHEATLEY II is a 53 year old male with a PMH significant for left upper lobe lung mass (undergoing chemotherapy, first treatment 09/12/2018), multiple DVTs/PE, on chronic Xarelto, chronic anemia, tobacco dependence, alcohol dependence. Patient is admitted to the hospitalist service for neutropenic fever and C. difficile. The patient was seen this morning on rounds. He is resting comfortably in bed on room air, states he feels well today. He is in good spirits. States his diarrhea continues to improve. States he is able to ambulate to the bathroom without assistance. Denies any complaints at this time. Hgb remains > 8.0 not requiring transfusion today. Platelets decreased 24k-->19k, transfused 2 units platelets today. Electrolytes (potassium, magnesium) remain low. Oncology has been consulted, continue to appreciate their recommendations. The source of the patient's neutropentic fever (TMAX 101.6) is likely the CDIFF infection. Plan to continue PO vancomycin. Will need to remain inpatient until diarrhea subsides and pancytopenia improves. Reason For Visit: ANEMIA, LEUKOPENIA Physical Exam Vital Signs: Temp Pulse Resp BP Pulse Ox 97 F L 75 20 169/94 H 96 09/25/18 12:31 09/25/18 12:31 09/25/18 12:31 09/25/18 12:31 09/25/18 11:36 Intake & Output 09/24/18 09/25/18 09/26/18 06:59 06:59 06:59 Intake Total 4333 3014 587 Output Total 2 Balance 4331 3014 587 Weight 72.6 kg 73 kg General appearance: PRESENT: thin Eye exam: PRESENT: conjunctiva pink, PERRLA Mouth exam: PRESENT: moist, tongue midline Teeth exam: PRESENT: poor dentation Neck exam: PRESENT: full ROM Respiratory exam: PRESENT: clear to auscultation joe, symmetrical, unlabored Cardiovascular exam: PRESENT: RRR Pulses: PRESENT: normal radial pulses, normal dorsalis pedis pul Vascular exam: PRESENT: normal capillary refill GI/Abdominal exam: PRESENT: soft. ABSENT: distended, tenderness Rectal exam: PRESENT: deferred Extremities exam: PRESENT: full ROM, pedal edema - Severe bilateral lymphedema and lower extremities Musculoskeletal exam: PRESENT: ambulatory, full ROM Neurological exam: PRESENT: alert, awake, oriented to person, oriented to place, oriented to time, oriented to situation Psychiatric exam: PRESENT: appropriate affect Skin exam: PRESENT: dry, intact, other - brown discoloration and thickening of the skin secondary to PVD and lymphedema. ABSENT: normal color Results Laboratory Results: 09/25/18 04:53 09/25/18 04:53 09/23/18 09/25/18 09/25/18 11:10 04:53 04:53 WBC 1.5 L* RBC 2.65 L Hgb 8.1 L Hct 23.5 L MCV 89 MCH 30.4 MCHC 34.4 RDW 18.5 H Plt Count 19 L* Seg Neutrophils % Not Reportable Lymphocytes % Not Reportable Monocytes % Not Reportable Eosinophils % Not Reportable Basophils % Not Reportable Absolute Neutrophils Not Reportable Absolute Lymphocytes Not Reportable Absolute Monocytes Not Reportable Absolute Eosinophils Not Reportable Absolute Basophils Not Reportable Sodium 141.1 Potassium 3.4 L Chloride 115 H Carbon Dioxide 21 L Anion Gap 5 BUN 14 Creatinine 0.90 Est GFR ( Amer) > 60 Est GFR (Non-Af Amer) > 60 Glucose 84 Calcium 7.7 L Phosphorus 3.6 Magnesium 1.3 L Total Bilirubin 0.3 AST 17 ALT 17 L Alkaline Phosphatase 77 Total Protein 4.7 L Albumin 2.1 L Blood Type A NEGATIVE 09/25/18 04:53 WBC Cancelled RBC Cancelled Hgb Cancelled Hct Cancelled MCV Cancelled MCH Cancelled MCHC Cancelled RDW Cancelled Plt Count Cancelled Seg Neutrophils % Cancelled Lymphocytes % Cancelled Monocytes % Cancelled Eosinophils % Cancelled Basophils % Cancelled Absolute Neutrophils Cancelled Absolute Lymphocytes Cancelled Absolute Monocytes Cancelled Absolute Eosinophils Cancelled Absolute Basophils Cancelled Sodium Potassium Chloride Carbon Dioxide Anion Gap BUN Creatinine Est GFR ( Amer) Est GFR (Non-Af Amer) Glucose Calcium Phosphorus Magnesium Total Bilirubin AST ALT Alkaline Phosphatase Total Protein Albumin Blood Type 09/20/18 12:59 Blood Blood Culture - Final NO GROWTH IN 5 DAYS 09/20/18 11:58 Blood Blood Culture - Final NO GROWTH IN 5 DAYS 09/21/18 08:37 NT-Pro-B Natriuret Pep 6250 H Impressions: Chest CT 09/20/18 00:00 IMPRESSION: Left upper lobe lung mass with direct involvement of a couple of ribs. No acute pulmonary infiltrate. Chest X-Ray 09/20/18 11:43 IMPRESSION: Persistent left upper lobe lung mass narrow shows cavitation. No acute infiltrate. Assessment and Plan - Diagnosis (1) C. difficile diarrhea Is this a current diagnosis for this admission?: Yes Plan: Diarrhea in an immunocompromised patient who just received chemotherapy 2 weeks ago (+) CDIFF PCR Started on PO vancomycin This is patient's first incident, treatment guidelines are 10 days of PO vancomycin 125mg PO QID x 10 days Will need to remain inpatient as long as the patient is experiencing diarrhea (2) Neutropenic fever Is this a current diagnosis for this admission?: Yes Plan: [id number] Now afebrile for 48hrs+ Neutropenic fever in a cancer patient who recently received his first ch emotherapy treatment (09/12/2018) Fever is likely the result of direct toxic effects of chemotherapy in addition to the underlying malignancy Source of infection is likely CDIFF CT scan chest negative for PNA UA negative Patient does not have any indwelling devices or open wounds as potential sources of infection Systolic murmur auscultated on exam, ?possible infectious endocarditis? or chemotherapy induced cardiotoxicity ECHOcardiogram done 2 days ago, results are still pending Blood cultures negative at 72 hours Tylenol for fever control (3) Hypocalcemia Is this a current diagnosis for this admission?: Yes Plan: Resolved Corrected calcium >9.0 Hypocalcemia could be secondary to nutritional deficits vs. side effects of chemotherapy No need for calcium gluconate today Will follow up with chemistry with AM labs (4) Hypomagnesemia Is this a current diagnosis for this admission?: Yes Plan: Slightly improved but still very low Could be secondary to nutritional deficits Magnesium 1.3 upon arrival, today 1.3 Transfuse IV Magnesium sulfate today Follow daily chemistries (5) Anemia Qualifiers: Anemia type: bone marrow failure Bone marrow failure anemia type: pancytopenia, antineoplastic chemotherapy-induced Qualified Code(s): D61.810 - Antineoplastic chemotherapy induced pancytopenia; T45.1X5A - Adverse effect of antineoplastic and immunosuppressive drugs, initial encounter Is this a current diagnosis for this admission?: Yes Plan: Multifactorial Anemia could be stemming from recent chemotherapy treatment, history of malignancy, heavy EtOH dependence -possible component of nutritional deficiency No evidence of gross blood loss Patient was admitted for, among other things, anemia 2 months ago. Hgb was 6.9. Now s/p 4U PRBCs this hospitalization, patient remains anemic (Hgb 8.1), but no need for transfusion today. Thiamine and folate p.o. daily Monitor serial CBCs. Per Oncology recommendations, transfuse for Hgb<7.0 (6) Cancer of lung, upper lobe Qualifiers: Laterality: left Qualified Code(s): C34.12 - Malignant neoplasm of upper lobe, left bronchus or lung Is this a current diagnosis for this admission?: Yes Plan: Currently undergoing chemotherapy, received first treatment 09/12/[address] Arriaga, management per his expertise (7) Cavitary lesion of lung Is this a current diagnosis for this admission?: Yes Plan: Seen on CXR Lesion noted to be expanding on chest CT June [address] upon admission only shows EUSEBIO lung mass, no infiltrate or pleural effusion (8) EtOH dependence Qualifiers: Substance use status: uncomplicated Qualified Code(s): F10.20 - Alcohol dependence, uncomplicated Is this a current diagnosis for this admission?: Yes Plan: Patient admits to drinking 8 shots per day Denies history of alcohol withdrawal seizures or DT Last drink over 72 hours ago, no evidence of alcohol withdrawal symptoms daily p.o. thiamine and folate Seizure precautions (9) History of DVT of lower extremity Is this a current diagnosis for this admission?: Yes Plan: History of multiple DVTs Home dose Xarelto currently on hold due to severe anemia (10) Lymphedema Is this a current diagnosis for this admission?: Yes Plan: Chronic lymphedema Keep extremities elevated Offered referral to lymphedema specialist, patient declined (11) Tobacco dependence Is this a current diagnosis for this admission?: Yes Plan: Patient admits to continuing to smoke despite lung cancer diagnosis [id number] smoking history We will offer nicotine patch - Time Time Spent with patient: 15-24 minutes Medications reviewed and adjusted accordingly: Yes Anticipated discharge: Home Within: within 24 hours - Inpatient Certification Based on my medical assessment, after consideration of the patient's comorbidities, presenting symptoms, or acuity I expect that the services needed warrant INPATIENT care.: Yes I certify that my determination is in accordance with my understanding of Medicare's requirements for reasonable and necessary INPATIENT services [42 CFR 412.3e].: Yes Medical Necessity: Need For Continuous Telemetry Monitoring, Risk of Complication if Not Cared For in Hospital
[2018-09-26] MEDS: VANCOMYCIN HCL INJ 500 MG VIAL PO SCH ×5 (00:05→23:34)
[2018-09-26 06:00] LABS: HEMATOCRIT 21.5 % (37.9-51.0); MEAN CORPUSCULAR HGB CONC 34.1 g/dL (32.0-36.0); MEAN CORPUSCULAR VOLUME 88 fl (80-97); RED BLOOD COUNT 2.45 10^6/uL (4.35-5.55); RED CELL DISTRIBUTION WIDTH 17.3 % (11.5-14.0)
[2018-09-26 06:08] LABS: HEMOGLOBIN 7.3 g/dL (13.5-17.0)
[2018-09-26 06:09] LABS: ALANINE AMINOTRANSFERASE 16 U/L (21-72); ALBUMIN 2.1 g/dL (3.5-5.0); ALKALINE PHOSPHATASE 72 U/L (38-126); ANION GAP 5 (5-19); ASPARTATE AMINO TRANSFERASE 16 U/L (17-59); BILIRUBIN,DIRECT 0.2 mg/dL (0.0-0.4); BILIRUBIN,TOTAL 0.2 mg/dL (0.2-1.3); BLOOD UREA NITROGEN 13 mg/dL (7-20); CALCIUM 7.7 mg/dL (8.4-10.2); CARBON DIOXIDE 22 mmol/L (22-30); CHLORIDE 114 mmol/L (98-107); GLUCOSE 81 mg/dL (75-110); PHOSPHORUS 3.6 mg/dL (2.5-4.5); POTASSIUM 3.4 mmol/L (3.6-5.0); SODIUM 141.4 mmol/L (137-145); TOTAL PROTEIN 4.6 g/dL (6.3-8.2)
[2018-09-26] MEDS: NORMAL SALINE 1000 ML 1,000 ML IV PRN ×2 (06:25→22:52)
[2018-09-26 06:52] LABS: ABSOLUTE LYMPHOCYTES# (MANUAL) 0.7 10^3/uL (0.5-4.7); ABSOLUTE MONOCYTES # (MANUAL) 0.1 10^3/uL (0.1-1.4); ABSOLUTE NEUTROPHILS# (MANUAL) 0.8 10^3/uL (1.7-8.2); BASOPHILS % (MANUAL) 0 % (0-2); EOSINOPHILS % (MANUAL) 0 % (0-6); LYMPHOCYTES % (MANUAL) 45 % (13-45); MONOCYTES % (MANUAL) 5 % (3-13); SEGMENTED NEUTROPHILS % (MAN) 49 % (42-78); TOTAL CELLS COUNTED 100
[2018-09-26 06:54] LABS: OVALOCYTES 1+; PLATELET COMMENT DECREASED
[2018-09-26 06:55] LABS: PLATELET COUNT 26 10^3/uL (150-450); WHITE BLOOD COUNT 1.6 10^3/uL (4.0-10.5)
[2018-09-26] MEDS: NICOTINE 21 MG/24 HR PATCH.TD24 TD SCH (09:21)
[2018-09-26] MEDS: MAGNESIUM OXIDE 400 MG TABLET PO SCH ×2 (09:21→17:38)
[2018-09-26] MEDS: THIAMINE HCL 100 MG TABLET PO SCH (09:22)
[2018-09-26] MEDS: POTASSIUM CHLORIDE 10 MEQ CAPSULE.ER PO SCH (09:22)
[2018-09-26] MEDS: FOLIC ACID 1 MG TABLET PO SCH (09:22)
--- NOTE | 2018-09-26 09:42 | PDOC PROGRESS REPORT ---
Subjective Progress Note for:: 09/26/18 Subjective:: Feeling better, had formed BMs yesterday PM and today am. Wt ct improving, almost out of neutropenia. Asked nursing to walk pt down mario today. He is also getting 1 unit PRBC Reason For Visit: ANEMIA, LEUKOPENIA Physical Exam Vital Signs: Temp Pulse Resp BP Pulse Ox 97.4 F 74 16 152/84 H 97 09/26/18 08:56 09/26/18 08:56 09/26/18 08:56 09/26/18 08:56 09/26/18 08:56 Intake & Output 09/25/18 09/26/18 09/27/18 06:59 06:59 06:59 Intake Total 3014 5168 Balance 3014 5168 Weight 73 kg 79.4 kg General appearance: PRESENT: no acute distress, well-developed, well-nourished Head exam: PRESENT: atraumatic, normocephalic Eye exam: PRESENT: conjunctiva pink, EOMI, PERRLA. ABSENT: scleral icterus Ear exam: PRESENT: normal external ear exam Mouth exam: PRESENT: moist, tongue midline Neck exam: ABSENT: carotid bruit, JVD, lymphadenopathy, thyromegaly Respiratory exam: PRESENT: clear to auscultation joe. ABSENT: rales, rhonchi, wheezes Cardiovascular exam: PRESENT: RRR. ABSENT: diastolic murmur, rubs, systolic murmur Pulses: PRESENT: normal dorsalis pedis pul Vascular exam: PRESENT: normal capillary refill GI/Abdominal exam: PRESENT: normal bowel sounds, soft. ABSENT: distended, guarding, mass, organolmegaly, rebound, tenderness Rectal exam: PRESENT: deferred Extremities exam: PRESENT: full ROM. ABSENT: calf tenderness, clubbing, pedal edema Neurological exam: PRESENT: alert, awake, oriented to person, oriented to place, oriented to time, oriented to situation, CN II-XII grossly intact. ABSENT: motor sensory deficit Psychiatric exam: PRESENT: appropriate affect, normal mood. ABSENT: homicidal ideation, suicidal ideation Skin exam: PRESENT: dry, intact, warm. ABSENT: cyanosis, rash Results Laboratory Results: 09/26/18 04:37 09/26/18 04:37 09/23/18 09/26/18 09/26/18 11:10 04:37 04:37 WBC 1.6 L RBC 2.45 L Hgb 7.3 L Hct 21.5 L MCV 88 MCH 30.0 MCHC 34.1 RDW 17.3 H Plt Count 26 L* Seg Neutrophils % Not Reportable Lymphocytes % Not Reportable Monocytes % Not Reportable Eosinophils % Not Reportable Basophils % Not Reportable Absolute Neutrophils Not Reportable Absolute Lymphocytes Not Reportable Absolute Monocytes Not Reportable Absolute Eosinophils Not Reportable Absolute Basophils Not Reportable Sodium 141.4 Potassium 3.4 L Chloride 114 H Carbon Dioxide 22 Anion Gap 5 BUN 13 Creatinine 0.87 Est GFR ( Amer) > 60 Est GFR (Non-Af Amer) > 60 Glucose 81 Calcium 7.7 L Phosphorus 3.6 Magnesium 1.3 L Total Bilirubin 0.2 AST 16 L ALT 16 L Alkaline Phosphatase 72 Total Protein 4.6 L Albumin 2.1 L Blood Type A NEGATIVE 09/20/18 12:59 Blood Blood Culture - Final NO GROWTH IN 5 DAYS 09/20/18 11:58 Blood Blood Culture - Final NO GROWTH IN 5 DAYS 09/21/18 08:37 NT-Pro-B Natriuret Pep 6250 H Impressions: Chest CT 09/20/18 00:00 IMPRESSION: Left upper lobe lung mass with direct involvement of a couple of ribs. No acute pulmonary infiltrate. Chest X-Ray 09/20/18 11:43 IMPRESSION: Persistent left upper lobe lung mass narrow shows cavitation. No acute infiltrate. Assessment & Plan - Diagnosis (1) C. difficile diarrhea Is this a current diagnosis for this admission?: Yes Plan: Cont rx per hospitalist team, getting better (2) Cancer of lung, upper lobe Qualifiers: Laterality: left Qualified Code(s): C34.12 - Malignant neoplasm of upper lobe, left bronchus or lung Is this a current diagnosis for this admission?: Yes Plan: Cont rx as oupt but will need full count recovery and improved PS to continue (3) Pancytopenia Is this a current diagnosis for this admission?: Yes Plan: Still severe 2nd to chemo, getting blood today (4) Anemia Qualifiers: Anemia type: bone marrow failure Bone marrow failure anemia type: pancytopenia, antineoplastic chemotherapy-induced Qualified Code(s): D61.810 - Antineoplastic chemotherapy induced pancytopenia; T45.1X5A - Adverse effect of antineoplastic and immunosuppressive drugs, initial encounter Is this a current diagnosis for this admission?: Yes Plan: Tx today planned 1 unit (5) Neutropenic fever Is this a current diagnosis for this admission?: Yes Plan: Cont broad spec atbx until ANC >1000
[2018-09-26 16:23] LABS: HEMATOCRIT 25.5 % (37.9-51.0); HEMOGLOBIN 8.7 g/dL (13.5-17.0); MEAN CORPUSCULAR HEMOGLOBIN 29.8 pg (27.0-33.4); MEAN CORPUSCULAR VOLUME 88 fl (80-97); RED BLOOD COUNT 2.91 10^6/uL (4.35-5.55); RED CELL DISTRIBUTION WIDTH 16.6 % (11.5-14.0)
[2018-09-26 17:06] LABS: ABSOLUTE LYMPHOCYTES# (MANUAL) 0.8 10^3/uL (0.5-4.7); ABSOLUTE MONOCYTES # (MANUAL) 0.2 10^3/uL (0.1-1.4); BASOPHILS % (MANUAL) 0 % (0-2); EOSINOPHILS % (MANUAL) 0 % (0-6); LYMPHOCYTES % (MANUAL) 38 % (13-45); MONOCYTES % (MANUAL) 10 % (3-13); SEGMENTED NEUTROPHILS % (MAN) 52 % (42-78); TOTAL CELLS COUNTED 50
[2018-09-26 17:08] LABS: ANISOCYTOSIS 1+; PLATELET COMMENT DECREASED
[2018-09-26 17:10] LABS: PLATELET COUNT 30 10^3/uL (150-450)
--- NOTE | 2018-09-26 18:31 | PDOC PROGRESS REPORT ---
Subjective Progress Note for:: 09/26/18 Subjective:: Mikael WHEATLEY II is a 53 year old male with a PMH significant for left upper lobe lung mass (undergoing chemotherapy, first treatment 09/12/2018), multiple DVTs/PE, on chronic Xarelto, chronic anemia, tobacco dependence, alcohol dependence. Patient is admitted to the hospitalist service for neutropenic fever and C. difficile. The patient was seen on morning rounds. He was found resting in bed comfortably on room air. He is in good spirits today; tells me that he had a formed bowel movement this morning. He denies abdominal discomfort, nausea, and vomiting. He reports that overall, he is feeling well, and hopeful to be discharged to home soon. He further denies fever, chills, headache, dizziness, chest pain, palpitations, dyspnea, orthopnea, and cough. He has no other questions or concerns at this time. No concerns per nursing. Reason For Visit: ANEMIA, LEUKOPENIA Physical Exam Vital Signs: Temp Pulse Resp BP Pulse Ox 98.1 F 72 22 H 157/80 H 97 09/26/18 14:14 09/26/18 14:14 09/26/18 14:14 09/26/18 14:14 09/26/18 14:14 Intake & Output 09/25/18 09/26/18 09/27/18 06:59 06:59 06:59 Intake Total 3014 5168 300 Balance 3014 5168 300 Weight 73 kg 79.4 kg General appearance: PRESENT: no acute distress, cooperative, well-developed Head exam: PRESENT: atraumatic, normocephalic Eye exam: PRESENT: conjunctiva pale, EOMI, PERRLA. ABSENT: scleral icterus Ear exam: PRESENT: normal external ear exam Mouth exam: PRESENT: moist, tongue midline Teeth exam: PRESENT: poor dentation Neck exam: ABSENT: carotid bruit, JVD, lymphadenopathy, thyromegaly Respiratory exam: PRESENT: clear to auscultation joe, symmetrical, unlabored. ABSENT: rales, rhonchi, wheezes Cardiovascular exam: PRESENT: RRR. ABSENT: diastolic murmur, rubs, systolic murmur Vascular exam: PRESENT: normal capillary refill GI/Abdominal exam: PRESENT: normal bowel sounds, soft. ABSENT: distended, guarding, mass, organolmegaly, rebound, tenderness Rectal exam: PRESENT: deferred Extremities exam: PRESENT: full ROM, +2 edema - severe bilateral lower extremity lymphedema. ABSENT: calf tenderness, clubbing, pedal edema Neurological exam: PRESENT: alert, awake, oriented to person, oriented to place, oriented to time, oriented to situation, CN II-XII grossly intact. ABSENT: motor sensory deficit Psychiatric exam: PRESENT: appropriate affect, normal mood. ABSENT: homicidal ideation, suicidal ideation Skin exam: PRESENT: dry, intact, warm, other - Chronic peripheral vascular and lymphedema skin changes to bilateral lower extremities. ABSENT: cyanosis, rash Results Laboratory Results: 09/26/18 16:00 09/26/18 04:37 09/23/18 09/26/18 09/26/18 11:10 04:37 04:37 WBC 1.6 L RBC 2.45 L Hgb 7.3 L Hct 21.5 L MCV 88 MCH 30.0 MCHC 34.1 RDW 17.3 H Plt Count 26 L* Seg Neutrophils % Not Reportable Lymphocytes % Not Reportable Monocytes % Not Reportable Eosinophils % Not Reportable Basophils % Not Reportable Absolute Neutrophils Not Reportable Absolute Lymphocytes Not Reportable Absolute Monocytes Not Reportable Absolute Eosinophils Not Reportable Absolute Basophils Not Reportable Sodium 141.4 Potassium 3.4 L Chloride 114 H Carbon Dioxide 22 Anion Gap 5 BUN 13 Creatinine 0.87 Est GFR ( Amer) > 60 Est GFR (Non-Af Amer) > 60 Glucose 81 Calcium 7.7 L Phosphorus 3.6 Magnesium 1.3 L Total Bilirubin 0.2 AST 16 L ALT 16 L Alkaline Phosphatase 72 Total Protein 4.6 L Albumin 2.1 L Blood Type A NEGATIVE Antibody Screen 09/26/18 09/26/18 08:54 16:00 WBC 2.0 L RBC 2.91 L Hgb 8.7 L Hct 25.5 L MCV 88 MCH 29.8 MCHC 34.0 RDW 16.6 H Plt Count 30 L* Seg Neutrophils % Not Reportable Lymphocytes % Not Reportable Monocytes % Not Reportable Eosinophils % Not Reportable Basophils % Not Reportable Absolute Neutrophils Not Reportable Absolute Lymphocytes Not Reportable Absolute Monocytes Not Reportable Absolute Eosinophils Not Reportable Absolute Basophils Not Reportable Sodium Potassium Chloride Carbon Dioxide Anion Gap BUN Creatinine Est GFR ( Amer) Est GFR (Non-Af Amer) Glucose Calcium Phosphorus Magnesium Total Bilirubin AST ALT Alkaline Phosphatase Total Protein Albumin Blood Type A NEGATIVE Antibody Screen NEGATIVE 09/21/18 08:37 NT-Pro-B Natriuret Pep 6250 H Impressions: Chest CT 09/20/18 00:00 IMPRESSION: Left upper lobe lung mass with direct involvement of a couple of ribs. No acute pulmonary infiltrate. Chest X-Ray 09/20/18 11:43 IMPRESSION: Persistent left upper lobe lung mass narrow shows cavitation. No acute infiltrate. Assessment and Plan - Diagnosis (1) C. difficile diarrhea Is this a current diagnosis for this admission?: Yes Plan: Significantly improved; formed bm today. Diarrhea in an immunocompromised patient who received chemotherapy 2 weeks ago (+) CDIFF PCR Continue PO vancomycin This is patient's first incident, treatment guidelines are 10 days of PO vancomycin 125mg PO QID x 10 days; currently Day #6 (2) Hypomagnesemia Is this a current diagnosis for this admission?: Yes Plan: Slightly improved but still very low; 1.3 today Received IV Magnesium sulfate yesterday Will start p.o. Magnesium oxide 800 mg BID Follow daily chemistries (3) Neutropenic fever Is this a current diagnosis for this admission?: Yes Plan: [id number] Now afebrile for 48hrs+ Neutropenic fever in a cancer patient who recently received his first chemotherapy treatment (09/12/2018) C. diff PCR positive. CT scan chest negative for PNA UA negative Systolic murmur auscultated on exam, fortunately echocardiogram is benign. Blood cultures negative (final) Stool cultures are negative Tylenol for fever control p.o. Vancomycin for treatment of C. diff as above. (4) Anemia Qualifiers: Anemia type: bone marrow failure Bone marrow failure anemia type: pancytopenia, antineoplastic chemotherapy-induced Qualified Code(s): D61.810 - Antineoplastic chemotherapy induced pancytopenia; T45.1X5A - Adverse effect of antineoplastic and immunosuppressive drugs, initial encounter Is this a current diagnosis for this admission?: Yes Plan: Multifactorial; recent chemotherapy treatment, history of malignancy, heavy EtOH dependence, and nutritional deficiency all likely. No evidence of gross blood loss Patient was admitted for, among other things, anemia 2 months ago. Hgb was 6.9 at that time. Now s/p 5U PRBCs this hospitalization, post-transfusion Hgb 8.7 today Thiamine, folate, and multivitamin supplement daily Monitor serial CBCs. Per Oncology recommendations, transfuse for Hgb<7.0 (5) Cancer of lung, upper lobe Qualifiers: Laterality: left Qualified Code(s): C34.12 - Malignant neoplasm of upper lobe, left bronchus or lung Is this a current diagnosis for this admission?: Yes Plan: Currently undergoing chemotherapy, received first treatment 09/12/[address] Arriaga, management per his expertise (6) Cavitary lesion of lung Is this a current diagnosis for this admission?: Yes Plan: Secondary to Lung CA. Seen on CXR Lesion noted to be expanding on chest CT June [address] upon admission only shows EUSEBIO lung mass, no infiltrate or pleural effusion Management per Oncology. (7) EtOH dependence Qualifiers: Substance use status: uncomplicated Qualified Code(s): F10.20 - Alcohol dependence, uncomplicated Is this a current diagnosis for this admission?: Yes Plan: Patient admits to drinking 8 shots per day Denies history of alcohol withdrawal seizures or DT Last drink over 72 hours ago, no evidence of alcohol withdrawal symptoms Continue daily multivitamin, thiamine and folate supplements Seizure precautions (8) History of DVT of lower extremity Is this a current diagnosis for this admission?: Yes Plan: History of multiple DVTs Home dose Xarelto currently on hold due to severe anemia Chronic anticoagulation per Heme/Oncology's expertise. (9) Lymphedema Is this a current diagnosis for this admission?: Yes Plan: Chronic lymphedema Keep extremities elevated ALEXANDRE hose as tolerated. Offered referral to lymphedema specialist, patient declined (10) Tobacco dependence Is this a current diagnosis for this admission?: Yes Plan: Patient admits to continuing to smoke despite lung cancer diagnosis [id number] smoking history Smoking cessation encouraged; nicotine patch offered (11) Hypocalcemia Is this a current diagnosis for this admission?: Yes Plan: Resolved Corrected calcium >9.0 - Time Time Spent with patient: 25-34 minutes Smoking Cessation Education: 3 to 10 minutes Medications reviewed and adjusted accordingly: Yes Anticipated discharge: Home Within: within 48 hours
[2018-09-27 05:16] LABS: HEMATOCRIT 23.9 % (37.9-51.0); HEMOGLOBIN 8.2 g/dL (13.5-17.0); MEAN CORPUSCULAR HEMOGLOBIN 29.9 pg (27.0-33.4); MEAN CORPUSCULAR HGB CONC 34.1 g/dL (32.0-36.0); MEAN CORPUSCULAR VOLUME 88 fl (80-97); RED BLOOD COUNT 2.73 10^6/uL (4.35-5.55); RED CELL DISTRIBUTION WIDTH 17.2 % (11.5-14.0); WHITE BLOOD COUNT 1.9 10^3/uL (4.0-10.5)
[2018-09-27 05:29] LABS: ALANINE AMINOTRANSFERASE 18 U/L (21-72); ALBUMIN 2.2 g/dL (3.5-5.0); ALKALINE PHOSPHATASE 71 U/L (38-126); ANION GAP 5 (5-19); ASPARTATE AMINO TRANSFERASE 15 U/L (17-59); BILIRUBIN,DIRECT 0.2 mg/dL (0.0-0.4); BILIRUBIN,TOTAL 0.4 mg/dL (0.2-1.3); BLOOD UREA NITROGEN 12 mg/dL (7-20); CALCIUM 7.7 mg/dL (8.4-10.2); CARBON DIOXIDE 22 mmol/L (22-30); CHLORIDE 113 mmol/L (98-107); GLUCOSE 81 mg/dL (75-110); PHOSPHORUS 3.7 mg/dL (2.5-4.5); POTASSIUM 3.3 mmol/L (3.6-5.0); SODIUM 140.1 mmol/L (137-145); TOTAL PROTEIN 4.8 g/dL (6.3-8.2)
[2018-09-27] MEDS: VANCOMYCIN HCL INJ 500 MG VIAL PO SCH ×4 (05:36→23:00)
[2018-09-27 06:30] LABS: ABSOLUTE LYMPHOCYTES# (MANUAL) 0.8 10^3/uL (0.5-4.7); ABSOLUTE MONOCYTES # (MANUAL) 0.1 10^3/uL (0.1-1.4); ANISOCYTOSIS 1+; BAND NEUTROPHILS % (MANUAL) 2 % (3-5); BASOPHILS % (MANUAL) 0 % (0-2); EOSINOPHILS % (MANUAL) 0 % (0-6); LYMPHOCYTES % (MANUAL) 44 % (13-45); MONOCYTES % (MANUAL) 4 % (3-13); NUCLEATED RED BLOOD CELLS 2 /100 WBC (0); PLATELET COMMENT DECREASED; SEGMENTED NEUTROPHILS % (MAN) 50 % (42-78); TOTAL CELLS COUNTED 50
[2018-09-27 06:31] LABS: HYPOCHROMASIA SLIGHT; OVALOCYTES SLIGHT; PLATELET COUNT 20 10^3/uL (150-450)
[2018-09-27] MEDS: MAGNESIUM SULFATE/D5W 1 GM/100 ML RTUPB IV SCH ×3 (06:48→10:00)
[2018-09-27] MEDS ORDERED: POTASSIUM CHLORIDE 10 MEQ CAPSULE.ER PO ONE (07:00)
[2018-09-27] MEDS: THIAMINE HCL 100 MG TABLET PO SCH (09:59)
[2018-09-27] MEDS: FOLIC ACID 1 MG TABLET PO SCH (09:59)
[2018-09-27] MEDS: POTASSIUM CHLORIDE 10 MEQ CAPSULE.ER PO SCH (09:59)
[2018-09-27] MEDS: NICOTINE 21 MG/24 HR PATCH.TD24 TD SCH (10:00)
[2018-09-27] MEDS: MAGNESIUM OXIDE 400 MG TABLET PO SCH ×2 (10:00→18:45)
--- NOTE | 2018-09-27 13:06 | PDOC PROGRESS REPORT ---
Subjective Progress Note for:: 09/27/18 Subjective:: Feeling better, hasn't walked yet, plt ct down to 20 Reason For Visit: ANEMIA, LEUKOPENIA Physical Exam Vital Signs: Temp Pulse Resp BP Pulse Ox 97.7 F 66 16 160/93 H 97 09/27/18 11:52 09/27/18 11:52 09/27/18 11:52 09/27/18 11:52 09/27/18 11:52 Intake & Output 09/26/18 09/27/18 09/28/18 06:59 06:59 06:59 Intake Total 5168 2310 200 Balance 5168 2310 200 Weight 79.4 kg 80.3 kg General appearance: PRESENT: no acute distress, well-developed, well-nourished Head exam: PRESENT: atraumatic, normocephalic Eye exam: PRESENT: conjunctiva pink, EOMI, PERRLA. ABSENT: scleral icterus Ear exam: PRESENT: normal external ear exam Mouth exam: PRESENT: moist, tongue midline Neck exam: ABSENT: carotid bruit, JVD, lymphadenopathy, thyromegaly Respiratory exam: PRESENT: clear to auscultation joe. ABSENT: rales, rhonchi, wheezes Cardiovascular exam: PRESENT: RRR. ABSENT: diastolic murmur, rubs, systolic murmur Pulses: PRESENT: normal dorsalis pedis pul Vascular exam: PRESENT: normal capillary refill GI/Abdominal exam: PRESENT: normal bowel sounds, soft. ABSENT: distended, guarding, mass, organolmegaly, rebound, tenderness Rectal exam: PRESENT: deferred Extremities exam: PRESENT: full ROM. ABSENT: calf tenderness, clubbing, pedal edema Neurological exam: PRESENT: alert, awake, oriented to person, oriented to place, oriented to time, oriented to situation, CN II-XII grossly intact. ABSENT: motor sensory deficit Psychiatric exam: PRESENT: appropriate affect, normal mood. ABSENT: homicidal ideation, suicidal ideation Skin exam: PRESENT: dry, intact, warm. ABSENT: cyanosis, rash Results Laboratory Results: 09/27/18 04:29 09/27/18 04:29 09/26/18 09/27/18 09/27/18 16:00 04:29 04:29 WBC 2.0 L 1.9 L RBC 2.91 L 2.73 L Hgb 8.7 L 8.2 L Hct 25.5 L 23.9 L MCV 88 88 MCH 29.8 29.9 MCHC 34.0 34.1 RDW 16.6 H 17.2 H Plt Count 30 L* 20 L* Seg Neutrophils % Not Reportable Not Reportable Lymphocytes % Not Reportable Not Reportable Monocytes % Not Reportable Not Reportable Eosinophils % Not Reportable Not Reportable Basophils % Not Reportable Not Reportable Absolute Neutrophils Not Reportable Not Reportable Absolute Lymphocytes Not Reportable Not Reportable Absolute Monocytes Not Reportable Not Reportable Absolute Eosinophils Not Reportable Not Reportable Absolute Basophils Not Reportable Not Reportable Sodium 140.1 Potassium 3.3 L Chloride 113 H Carbon Dioxide 22 Anion Gap 5 BUN 12 Creatinine 0.87 Est GFR ( Amer) > 60 Est GFR (Non-Af Amer) > 60 Glucose 81 Calcium 7.7 L Phosphorus 3.7 Magnesium 1.1 L* Total Bilirubin 0.4 AST 15 L ALT 18 L Alkaline Phosphatase 71 Total Protein 4.8 L Albumin 2.2 L 09/21/18 08:37 NT-Pro-B Natriuret Pep 6250 H Impressions: Chest CT 09/20/18 00:00 IMPRESSION: Left upper lobe lung mass with direct involvement of a couple of ribs. No acute pulmonary infiltrate. Chest X-Ray 09/20/18 11:43 IMPRESSION: Persistent left upper lobe lung mass narrow shows cavitation. No acute infiltrate. Assessment & Plan - Diagnosis (1) C. difficile diarrhea Is this a current diagnosis for this admission?: Yes Plan: Improved (2) Cancer of lung, upper lobe Qualifiers: Laterality: left Qualified Code(s): C34.12 - Malignant neoplasm of upper lobe, left bronchus or lung Is this a current diagnosis for this admission?: Yes Plan: con't rx as ouptt but still w/ pancytopenia (3) Pancytopenia Is this a current diagnosis for this admission?: Yes Plan: plt downt to 20k, give plt today (4) Anemia Qualifiers: Anemia type: bone marrow failure Bone marrow failure anemia type: pancytopenia, antineoplastic chemotherapy-induced Qualified Code(s): D61.810 - Antineoplastic chemotherapy induced pancytopenia; T45.1X5A - Adverse effect of antineoplastic and immunosuppressive drugs, initial encounter Is this a current diagnosis for this admission?: Yes Plan: hb 8, hold on transfusion (5) Neutropenic fever Is this a current diagnosis for this admission?: Yes Plan: neutropenia resolved, will con't to improve
[2018-09-27] MEDS: NORMAL SALINE 1000 ML 1,000 ML IV PRN (15:13)
[2018-09-27] MEDS ORDERED: MAGNESIUM SULFATE/D5W 1 GM/100 ML RTUPB IV SCH (16:00)
--- NOTE | 2018-09-27 20:50 | PDOC PROGRESS REPORT ---
Subjective Progress Note for:: 09/27/18 Subjective:: Mikael WHEATLEY II is a 53 year old male with a PMH significant for left upper lobe lung mass (undergoing chemotherapy, first treatment 09/12/2018), multiple DVTs/PE, on chronic Xarelto, chronic anemia, tobacco dependence, alcohol dependence. Patient is admitted to the hospitalist service for neutropenic fever and C. difficile. The patient was seen on morning rounds. He was found resting in bed comfortably on room air. He reports he is feeling well today; continues to have formed bowel movement. He denies abdominal discomfort, nausea, and vomiting. He reports that overall, he is feeling well, and hopeful to be discharged to home soon. He further denies fever, chills, headache, dizziness, chest pain, palpitations, dyspnea, orthopnea, and cough. He has no other questions or concerns at this time. No concerns per nursing. Reason For Visit: ANEMIA, LEUKOPENIA Physical Exam Vital Signs: Temp Pulse Resp BP Pulse Ox 97.7 F 66 16 160/93 H 97 09/27/18 11:52 09/27/18 11:52 09/27/18 11:52 09/27/18 11:52 09/27/18 11:52 Intake & Output 09/26/18 09/27/18 09/28/18 06:59 06:59 06:59 Intake Total 5168 2310 1800 Balance 5168 2310 1800 Weight 79.4 kg 80.3 kg General appearance: PRESENT: no acute distress, cooperative, disheveled, well- developed, well-nourished Head exam: PRESENT: atraumatic, normocephalic Eye exam: PRESENT: conjunctiva pink, EOMI, PERRLA. ABSENT: scleral icterus Ear exam: PRESENT: normal external ear exam Mouth exam: PRESENT: moist, tongue midline Neck exam: ABSENT: carotid bruit, JVD, lymphadenopathy, thyromegaly Respiratory exam: PRESENT: clear to auscultation joe, symmetrical, unlabored. ABSENT: rales, rhonchi, wheezes Cardiovascular exam: PRESENT: RRR, +S1, +S2. ABSENT: diastolic murmur, rubs, systolic murmur Vascular exam: PRESENT: normal capillary refill GI/Abdominal exam: PRESENT: normal bowel sounds, soft. ABSENT: distended, guarding, mass, organolmegaly, rebound, tenderness Rectal exam: PRESENT: deferred Extremities exam: PRESENT: full ROM, +2 edema - BLE; chronic lymphedema. ABSENT: calf tenderness, clubbing, pedal edema Neurological exam: PRESENT: alert, awake, oriented to person, oriented to place, oriented to time, oriented to situation, CN II-XII grossly intact. ABSENT: motor sensory deficit Psychiatric exam: PRESENT: appropriate affect, normal mood. ABSENT: homicidal ideation, suicidal ideation Skin exam: PRESENT: dry, intact, warm, other - chronic venous stasis/PAD changes to BLE. ABSENT: cyanosis, rash Results Laboratory Results: 09/27/18 04:29 09/27/18 04:29 09/26/18 09/27/18 09/27/18 16:00 04:29 04:29 WBC 2.0 L 1.9 L RBC 2.91 L 2.73 L Hgb 8.7 L 8.2 L Hct 25.5 L 23.9 L MCV 88 88 MCH 29.8 29.9 MCHC 34.0 34.1 RDW 16.6 H 17.2 H Plt Count 30 L* 20 L* Seg Neutrophils % Not Reportable Not Reportable Lymphocytes % Not Reportable Not Reportable Monocytes % Not Reportable Not Reportable Eosinophils % Not Reportable Not Reportable Basophils % Not Reportable Not Reportable Absolute Neutrophils Not Reportable Not Reportable Absolute Lymphocytes Not Reportable Not Reportable Absolute Monocytes Not Reportable Not Reportable Absolute Eosinophils Not Reportable Not Reportable Absolute Basophils Not Reportable Not Reportable Sodium 140.1 Potassium 3.3 L Chloride 113 H Carbon Dioxide 22 Anion Gap 5 BUN 12 Creatinine 0.87 Est GFR ( Amer) > 60 Est GFR (Non-Af Amer) > 60 Glucose 81 Calcium 7.7 L Phosphorus 3.7 Magnesium 1.1 L* Total Bilirubin 0.4 AST 15 L ALT 18 L Alkaline Phosphatase 71 Total Protein 4.8 L Albumin 2.2 L 09/21/18 08:37 NT-Pro-B Natriuret Pep 6250 H Impressions: Chest CT 09/20/18 00:00 IMPRESSION: Left upper lobe lung mass with direct involvement of a couple of ribs. No acute pulmonary infiltrate. Chest X-Ray 09/20/18 11:43 IMPRESSION: Persistent left upper lobe lung mass narrow shows cavitation. No acute infiltrate. Assessment and Plan - Diagnosis (1) C. difficile diarrhea Is this a current diagnosis for this admission?: Yes Plan: Significantly improved; formed bm today. Diarrhea in an immunocompromised patient who received chemotherapy 2 weeks ago (+) CDIFF PCR Continue PO vancomycin This is patient's first incident, treatment guidelines are 10 days of PO vancomycin 125mg PO QID x 10 days; currently Day #7 (2) Hypomagnesemia Is this a current diagnosis for this admission?: Yes Plan: Persistent; 1.1 today IV magnesium x 3 gm today Continue p.o. Magnesium oxide 800 mg BID Follow daily chemistries (3) Neutropenic fever Is this a current diagnosis for this admission?: Yes Plan: Improved; ANC now 1.0 and afebrile for >48 hours [id number] Neutropenic fever in a cancer patient who recently received his first chemotherapy treatment (09/12/2018) C. diff PCR positive. CT scan chest negative for PNA UA negative Systolic murmur auscultated on exam, fortunately echocardiogram is benign. Blood cultures negative (final) Stool cultures are negative Tylenol for fever control p.o. Vancomycin for treatment of C. diff as above. (4) Anemia Qualifiers: Anemia type: bone marrow failure Bone marrow failure anemia type: pancytopenia, antineoplastic chemotherapy-induced Qualified Code(s): D61.810 - Antineoplastic chemotherapy induced pancytopenia; T45.1X5A - Adverse effect of antineoplastic and immunosuppressive drugs, initial encounter Is this a current diagnosis for this admission?: Yes Plan: Multifactorial; recent chemotherapy treatment, history of malignancy, heavy EtOH dependence, and nutritional deficiency all likely. No evidence of gross blood loss Patient was admitted for, among other things, anemia 2 months ago. Hgb was 6.9 at that time. Now s/p 5U PRBCs this hospitalization, post-transfusion Hgb 8.7 today Thiamine, folate, and multivitamin supplement daily Monitor serial CBCs. Per Oncology recommendations, transfuse for Hgb<7.0 (5) Cancer of lung, upper lobe Qualifiers: Laterality: left Qualified Code(s): C34.12 - Malignant neoplasm of upper lobe, left bronchus or lung Is this a current diagnosis for this admission?: Yes Plan: Currently undergoing chemotherapy, received first treatment 09/12/[address] Arriaga, management per his expertise (6) Cavitary lesion of lung Is this a current diagnosis for this admission?: Yes Plan: Secondary to Lung CA. Seen on CXR Lesion noted to be expanding on chest CT June [address] upon admission only shows EUSEBIO lung mass, no infiltrate or pleural effusion Management per Oncology. (7) EtOH dependence Qualifiers: Substance use status: uncomplicated Qualified Code(s): F10.20 - Alcohol dependence, uncomplicated Is this a current diagnosis for this admission?: Yes Plan: Patient admits to drinking 8 shots per day Denies history of alcohol withdrawal seizures or DT Last drink over 72 hours ago, no evidence of alcohol withdrawal symptoms Continue daily multivitamin, thiamine and folate supplements Seizure precautions (8) History of DVT of lower extremity Is this a current diagnosis for this admission?: Yes Plan: History of multiple DVTs Home dose Xarelto currently on hold due to severe anemia Chronic anticoagulation per Heme/Oncology's expertise. (9) Lymphedema Is this a current diagnosis for this admission?: Yes Plan: Chronic lymphedema Keep extremities elevated ALEXANDRE hose as tolerated. Offered referral to lymphedema specialist, patient declined (10) Tobacco dependence Is this a current diagnosis for this admission?: Yes Plan: Patient admits to continuing to smoke despite lung cancer diagnosis [id number] smoking history Smoking cessation encouraged; nicotine patch offered (11) Hypocalcemia Is this a current diagnosis for this admission?: Yes Plan: Resolved Corrected calcium >9.0 (12) Thrombocytopenia Is this a current diagnosis for this admission?: Yes Plan: Secondary to malignancy and chemotherapy treatments. Receiving platelets today. - Time Time Spent with patient: 15-24 minutes Medications reviewed and adjusted accordingly: Yes Anticipated discharge: Home Within: within 48 hours - discussed w/ oncology; continue to monitor until Hgb and PLT stabalize. ANC trending up; now 1.0
[2018-09-28] MEDS: NORMAL SALINE 1000 ML 1,000 ML IV PRN (03:57)
[2018-09-28] MEDS ORDERED: VANCOMYCIN HCL INJ 500 MG VIAL ONE (06:34)
[2018-09-28 06:41] LABS: ABSOLUTE MONOCYTES (AUTO) 0.1 10^3/uL (0.1-1.4); ABSOLUTE NEUT (AUTO) 0.9 10^3/uL (1.7-8.2); BASOPHILS % (AUTO) 0.7 % (0-2); EOSINOPHILS % (AUTO) 1.2 % (0-6); HEMATOCRIT 23.9 % (37.9-51.0); HEMOGLOBIN 8.2 g/dL (13.5-17.0); LYMPHOCYTES % (AUTO) 48.8 % (13-45); MEAN CORPUSCULAR HEMOGLOBIN 29.9 pg (27.0-33.4); MEAN CORPUSCULAR HGB CONC 34.2 g/dL (32.0-36.0); MEAN CORPUSCULAR VOLUME 87 fl (80-97); MONOCYTES % (AUTO) 4.8 % (3-13); RED BLOOD COUNT 2.74 10^6/uL (4.35-5.55); RED CELL DISTRIBUTION WIDTH 16.7 % (11.5-14.0); SEGMENTED NEUTROPHILS % (AUTO) 44.5 % (42-78); TOTAL CELLS COUNTED % (AUTO) 100 %; WHITE BLOOD COUNT 2.1 10^3/uL (4.0-10.5)
[2018-09-28] MEDS: VANCOMYCIN HCL INJ 500 MG VIAL PO SCH ×4 (06:51→23:47)
[2018-09-28 06:59] LABS: ALANINE AMINOTRANSFERASE 19 U/L (21-72); ALBUMIN 2.4 g/dL (3.5-5.0); ALKALINE PHOSPHATASE 84 U/L (38-126); ANION GAP 7 (5-19); ASPARTATE AMINO TRANSFERASE 18 U/L (17-59); BILIRUBIN,DIRECT 0.3 mg/dL (0.0-0.4); BILIRUBIN,TOTAL 0.3 mg/dL (0.2-1.3); BLOOD UREA NITROGEN 10 mg/dL (7-20); CALCIUM 8.2 mg/dL (8.4-10.2); CARBON DIOXIDE 22 mmol/L (22-30); CHLORIDE 111 mmol/L (98-107); GLUCOSE 79 mg/dL (75-110); PHOSPHORUS 4.1 mg/dL (2.5-4.5); POTASSIUM 3.8 mmol/L (3.6-5.0); SODIUM 139.5 mmol/L (137-145); TOTAL PROTEIN 5.3 g/dL (6.3-8.2)
[2018-09-28 07:47] LABS: PLATELET COUNT 34 10^3/uL (150-450)
[2018-09-28 07:55] LABS: ANISOCYTOSIS 1+; HYPOCHROMASIA 3+; SCHISTOCYTES SLIGHT
[2018-09-28 07:56] LABS: PLATELET COMMENT DECREASED
--- NOTE | 2018-09-28 08:35 | PDOC PROGRESS REPORT ---
Subjective Progress Note for:: 09/28/18 Subjective:: No acute events overnight, patient was able to walk yesterday. Reason For Visit: ANEMIA, LEUKOPENIA Physical Exam Vital Signs: Temp Pulse Resp BP Pulse Ox 97.4 F 69 16 167/87 H 96 09/28/18 07:18 09/28/18 07:18 09/28/18 07:18 09/28/18 07:18 09/28/18 07:18 Intake & Output 09/27/18 09/28/18 09/29/18 06:59 06:59 06:59 Intake Total 2310 4023 Balance 2310 4023 Weight 80.3 kg 81.8 kg General appearance: PRESENT: no acute distress, well-developed, well-nourished Head exam: PRESENT: atraumatic, normocephalic Eye exam: PRESENT: conjunctiva pink, EOMI, PERRLA. ABSENT: scleral icterus Ear exam: PRESENT: normal external ear exam Mouth exam: PRESENT: moist, tongue midline Neck exam: ABSENT: carotid bruit, JVD, lymphadenopathy, thyromegaly Respiratory exam: PRESENT: clear to auscultation joe. ABSENT: rales, rhonchi, wheezes Cardiovascular exam: PRESENT: RRR. ABSENT: diastolic murmur, rubs, systolic murmur Pulses: PRESENT: normal dorsalis pedis pul Vascular exam: PRESENT: normal capillary refill GI/Abdominal exam: PRESENT: normal bowel sounds, soft. ABSENT: distended, guarding, mass, organolmegaly, rebound, tenderness Rectal exam: PRESENT: deferred Extremities exam: PRESENT: full ROM. ABSENT: calf tenderness, clubbing, pedal edema Neurological exam: PRESENT: alert, awake, oriented to person, oriented to place, oriented to time, oriented to situation, CN II-XII grossly intact. ABSENT: motor sensory deficit Psychiatric exam: PRESENT: appropriate affect, normal mood. ABSENT: homicidal ideation, suicidal ideation Skin exam: PRESENT: dry, intact, warm. ABSENT: cyanosis, rash Results Laboratory Results: 09/28/18 06:13 09/28/18 06:13 09/26/18 09/28/18 09/28/18 08:54 06:13 06:13 WBC 2.1 L RBC 2.74 L Hgb 8.2 L Hct 23.9 L MCV 87 MCH 29.9 MCHC 34.2 RDW 16.7 H Plt Count 34 L Seg Neutrophils % 44.5 Lymphocytes % 48.8 H Monocytes % 4.8 Eosinophils % 1.2 Basophils % 0.7 Absolute Neutrophils 0.9 L Absolute Lymphocytes 1.0 Absolute Monocytes 0.1 Absolute Eosinophils 0.0 Absolute Basophils 0.0 Sodium 139.5 Potassium 3.8 Chloride 111 H Carbon Dioxide 22 Anion Gap 7 BUN 10 Creatinine 0.89 Est GFR ( Amer) > 60 Est GFR (Non-Af Amer) > 60 Glucose 79 Calcium 8.2 L Phosphorus 4.1 Magnesium 1.4 L Total Bilirubin 0.3 AST 18 ALT 19 L Alkaline Phosphatase 84 Total Protein 5.3 L Albumin 2.4 L Blood Type A NEGATIVE Antibody Screen NEGATIVE 09/21/18 08:37 NT-Pro-B Natriuret Pep 6250 H Impressions: Chest CT 09/20/18 00:00 IMPRESSION: Left upper lobe lung mass with direct involvement of a couple of ribs. No acute pulmonary infiltrate. Chest X-Ray 09/20/18 11:43 IMPRESSION: Persistent left upper lobe lung mass narrow shows cavitation. No acute infiltrate. Assessment & Plan - Diagnosis (1) C. difficile diarrhea Is this a current diagnosis for this admission?: Yes Plan: Proved still having about 5 bowel movements a day but formed now (2) Cancer of lung, upper lobe Qualifiers: Laterality: left Qualified Code(s): C34.12 - Malignant neoplasm of upper lobe, left bronchus or lung Is this a current diagnosis for this admission?: Yes Plan: Plan for continued therapy as an outpatient but will need to longer chemo break to allow count recovery and bowels to normalize (3) Pancytopenia Is this a current diagnosis for this admission?: Yes Plan: Still severe, ANC to 0.9 again, hemoglobin is stable in the 8 range, platelets have improved after transfusion of 34 (4) Anemia Qualifiers: Anemia type: bone marrow failure Bone marrow failure anemia type: pancytopenia, antineoplastic chemotherapy-induced Qualified Code(s): D61.810 - Antineoplastic chemotherapy induced pancytopenia; T45.1X5A - Adverse effect of antineoplastic and immunosuppressive drugs, initial encounter Is this a current diagnosis for this admission?: Yes Plan: Stable no transfusion today (5) Neutropenic fever Is this a current diagnosis for this admission?: Yes Plan: Neutropenic again, fevers resolved however
[2018-09-28] MEDS: NICOTINE 21 MG/24 HR PATCH.TD24 TD SCH (09:02)
[2018-09-28] MEDS: POTASSIUM CHLORIDE 10 MEQ CAPSULE.ER PO SCH (09:02)
[2018-09-28] MEDS: LISINOPRIL 10 MG TABLET PO SCH (09:02)
[2018-09-28] MEDS: FOLIC ACID 1 MG TABLET PO SCH (09:03)
[2018-09-28] MEDS: MAGNESIUM OXIDE 400 MG TABLET PO SCH ×2 (09:03→18:16)
[2018-09-28] MEDS: THIAMINE HCL 100 MG TABLET PO SCH (09:03)
--- NOTE | 2018-09-28 18:00 | PDOC PROGRESS REPORT ---
Subjective Progress Note for:: 09/28/18 Subjective:: Mikael WHEATLEY II is a 53 year old male with a PMH significant for left upper lobe lung mass (undergoing chemotherapy, first treatment 09/12/2018), multiple DVTs/PE, on chronic Xarelto, chronic anemia, tobacco dependence, alcohol dependence. Patient is admitted to the hospitalist service for neutropenic fever and C. difficile. The patient was seen on morning rounds. He was found resting in bed comfortably on room air. He reports he is feeling well today; continues to have formed bowel movement. He denies abdominal discomfort, nausea, and vomiting. He further denies fever, chills, headache, dizziness, chest pain, palpitations, dyspnea, orthopnea, and cough. He has no new questions or concerns at this time. Does request discharge home tomorrow morning. No concerns per nursing. Reason For Visit: ANEMIA, LEUKOPENIA Physical Exam Vital Signs: Temp Pulse Resp BP Pulse Ox 97.8 F 70 18 172/86 H 98 09/28/18 15:21 09/28/18 15:21 09/28/18 15:21 09/28/18 15:21 09/28/18 15:21 Intake & Output 09/27/18 09/28/18 09/29/18 06:59 06:59 06:59 Intake Total 2310 4023 960 Balance 2310 4023 960 Weight 80.3 kg 81.8 kg General appearance: PRESENT: no acute distress, cooperative, disheveled, well- developed, well-nourished Head exam: PRESENT: atraumatic, normocephalic Eye exam: PRESENT: conjunctiva pink, EOMI, PERRLA. ABSENT: scleral icterus Ear exam: PRESENT: normal external ear exam Mouth exam: PRESENT: moist, tongue midline Teeth exam: PRESENT: poor dentation Neck exam: ABSENT: carotid bruit, JVD, lymphadenopathy, thyromegaly Respiratory exam: PRESENT: clear to auscultation joe, symmetrical, unlabored. ABSENT: rales, rhonchi, wheezes Cardiovascular exam: PRESENT: RRR, +S1, +S2. ABSENT: diastolic murmur, rubs, systolic murmur Pulses: PRESENT: normal dorsalis pedis pul Vascular exam: PRESENT: normal capillary refill GI/Abdominal exam: PRESENT: normal bowel sounds, soft. ABSENT: distended, guarding, mass, organolmegaly, rebound, tenderness Rectal exam: PRESENT: deferred Extremities exam: PRESENT: full ROM. ABSENT: calf tenderness, clubbing, pedal edema Musculoskeletal exam: PRESENT: ambulatory Neurological exam: PRESENT: alert, awake, oriented to person, oriented to place, oriented to time, oriented to situation, CN II-XII grossly intact. ABSENT: motor sensory deficit Psychiatric exam: PRESENT: appropriate affect, normal mood. ABSENT: homicidal ideation, suicidal ideation Skin exam: PRESENT: dry, intact, warm. ABSENT: cyanosis, rash Results Laboratory Results: 09/28/18 06:13 09/28/18 06:13 09/26/18 09/28/18 09/28/18 08:54 06:13 06:13 WBC 2.1 L RBC 2.74 L Hgb 8.2 L Hct 23.9 L MCV 87 MCH 29.9 MCHC 34.2 RDW 16.7 H Plt Count 34 L Seg Neutrophils % 44.5 Lymphocytes % 48.8 H Monocytes % 4.8 Eosinophils % 1.2 Basophils % 0.7 Absolute Neutrophils 0.9 L Absolute Lymphocytes 1.0 Absolute Monocytes 0.1 Absolute Eosinophils 0.0 Absolute Basophils 0.0 Sodium 139.5 Potassium 3.8 Chloride 111 H Carbon Dioxide 22 Anion Gap 7 BUN 10 Creatinine 0.89 Est GFR ( Amer) > 60 Est GFR (Non-Af Amer) > 60 Glucose 79 Calcium 8.2 L Phosphorus 4.1 Magnesium 1.4 L Total Bilirubin 0.3 AST 18 ALT 19 L Alkaline Phosphatase 84 Total Protein 5.3 L Albumin 2.4 L Blood Type A NEGATIVE Antibody Screen NEGATIVE 09/21/18 08:37 NT-Pro-B Natriuret Pep 6250 H Impressions: Chest CT 09/20/18 00:00 IMPRESSION: Left upper lobe lung mass with direct involvement of a couple of ribs. No acute pulmonary infiltrate. Chest X-Ray 09/20/18 11:43 IMPRESSION: Persistent left upper lobe lung mass narrow shows cavitation. No acute infiltrate. Assessment and Plan - Diagnosis (1) C. difficile diarrhea Is this a current diagnosis for this admission?: Yes Plan: Significantly improved; formed bowel movements. Diarrhea in an immunocompromised patient who received chemotherapy 2 weeks ago (+) CDIFF PCR Continue PO vancomycin This is patient's first incident, treatment guidelines are 10 days of PO vancomycin 125mg PO QID x 10 days; currently Day #8 (2) Hypomagnesemia Is this a current diagnosis for this admission?: Yes Plan: Improved; 1.4 today Did receive IV magnesium x 3 gm yesterday Continue p.o. Magnesium oxide 800 mg BID Follow daily chemistries (3) Neutropenic fever Is this a current diagnosis for this admission?: Yes Plan: Improved; ANC now 0.9. Afebrile for >48 hours [id number] Neutropenic fever in a cancer patient who recently received his first chemotherapy treatment (09/12/2018) C. diff PCR positive. CT scan chest negative for PNA UA negative Systolic murmur auscultated on exam, fortunately echocardiogram is benign. Blood cultures negative (final) Stool cultures are negative Tylenol for fever control p.o. Vancomycin for treatment of C. diff as above. (4) Anemia Qualifiers: Anemia type: bone marrow failure Bone marrow failure anemia type: pancytopenia, antineoplastic chemotherapy-induced Qualified Code(s): D61.810 - Antineoplastic chemotherapy induced pancytopenia; T45.1X5A - Adverse effect of antineoplastic and immunosuppressive drugs, initial encounter Is this a current diagnosis for this admission?: Yes Plan: Appears to have stabalized; 7.3-> PRBC-> 8.7-> 8.2-> 8.2 Multifactorial; recent chemotherapy treatment, history of malignancy, heavy EtOH dependence, and nutritional deficiency all likely. No evidence of gross blood loss Patient was admitted for, among other things, anemia 2 months ago. Hgb was 6.9 at that time. Now s/p 5U PRBCs this hospitalization, post-transfusion Hgb 8.7 today Thiamine, folate, and multivitamin supplement daily Monitor serial CBCs. Per Oncology recommendations, transfuse for Hgb<7.0 (5) Cancer of lung, upper lobe Qualifiers: Laterality: left Qualified Code(s): C34.12 - Malignant neoplasm of upper lobe, left bronchus or lung Is this a current diagnosis for this admission?: Yes Plan: Currently undergoing chemotherapy, received first treatment 09/12/[address] Arriaga, management per his expertise (6) Cavitary lesion of lung Is this a current diagnosis for this admission?: Yes Plan: Secondary to Lung CA. Seen on CXR Lesion noted to be expanding on chest CT June [address] upon admission only shows EUSEBIO lung mass, no infiltrate or pleural effusion Management per Oncology. (7) EtOH dependence Qualifiers: Substance use status: uncomplicated Qualified Code(s): F10.20 - Alcohol dependence, uncomplicated Is this a current diagnosis for this admission?: Yes Plan: Patient admits to drinking 8 shots per day Denies history of alcohol withdrawal seizures or DT Last drink over 72 hours ago, no evidence of alcohol withdrawal symptoms Continue daily multivitamin, thiamine and folate supplements Seizure precautions (8) History of DVT of lower extremity Is this a current diagnosis for this admission?: Yes Plan: History of multiple DVTs Home dose Xarelto currently on hold due to severe anemia Chronic anticoagulation per Heme/Oncology's expertise. (9) Lymphedema Is this a current diagnosis for this admission?: Yes Plan: Chronic lymphedema Keep extremities elevated ALEXANDRE hose as tolerated. Offered referral to lymphedema specialist, patient declined (10) Tobacco dependence Is this a current diagnosis for this admission?: Yes Plan: Patient admits to continuing to smoke despite lung cancer diagnosis [id number] smoking history Smoking cessation encouraged; nicotine patch offered (11) Hypocalcemia Is this a current diagnosis for this admission?: Yes Plan: Resolved Corrected calcium >9.0 (12) Thrombocytopenia Is this a current diagnosis for this admission?: Yes Plan: PLT 34 today; did receive PLT transfusion yesterday. Secondary to malignancy and chemotherapy treatments. Holding anticoagulation. Check CBC in am. Transfuse as directed by Heme/Onc. (13) HTN (hypertension) Qualifiers: Hypertension type: essential hypertension Qualified Code(s): I10 - Essential (primary) hypertension Is this a current diagnosis for this admission?: Yes Plan: Persistently elevated blood pressures this admission; 142/72 - 172/86. Cardiac diet. Start lisinopril 10 mg daily today. - Time Time Spent with patient: 15-24 minutes Anticipated discharge: Home Within: within 24 hours
[2018-09-29] MEDS: VANCOMYCIN HCL INJ 500 MG VIAL PO SCH ×4 (05:08→23:56)
[2018-09-29 05:29] LABS: HEMATOCRIT 21.2 % (37.9-51.0); MEAN CORPUSCULAR HEMOGLOBIN 30.4 pg (27.0-33.4); MEAN CORPUSCULAR HGB CONC 34.8 g/dL (32.0-36.0); MEAN CORPUSCULAR VOLUME 88 fl (80-97); RED BLOOD COUNT 2.42 10^6/uL (4.35-5.55); RED CELL DISTRIBUTION WIDTH 16.9 % (11.5-14.0); WHITE BLOOD COUNT 1.8 10^3/uL (4.0-10.5)
[2018-09-29 05:44] LABS: ANION GAP 7 (5-19); BLOOD UREA NITROGEN 12 mg/dL (7-20); CALCIUM 8.2 mg/dL (8.4-10.2); CARBON DIOXIDE 22 mmol/L (22-30); CHLORIDE 109 mmol/L (98-107); GLUCOSE 79 mg/dL (75-110); POTASSIUM 3.7 mmol/L (3.6-5.0); SODIUM 138.1 mmol/L (137-145)
[2018-09-29 05:57] LABS: HEMOGLOBIN 7.4 g/dL (13.5-17.0)
[2018-09-29 06:20] LABS: ABSOLUTE LYMPHOCYTES# (MANUAL) 0.9 10^3/uL (0.5-4.7); ABSOLUTE MONOCYTES # (MANUAL) 0.1 10^3/uL (0.1-1.4); ABSOLUTE NEUTROPHILS# (MANUAL) 0.8 10^3/uL (1.7-8.2); BASOPHILS % (MANUAL) 1 % (0-2); EOSINOPHILS % (MANUAL) 1 % (0-6); LYMPHOCYTES % (MANUAL) 48 % (13-45); MONOCYTES % (MANUAL) 6 % (3-13); SEGMENTED NEUTROPHILS % (MAN) 44 % (42-78); TOTAL CELLS COUNTED 100
[2018-09-29 06:21] LABS: ANISOCYTOSIS 1+; HYPOCHROMASIA 1+; PLATELET COMMENT DECREASED; SCHISTOCYTES 1+
[2018-09-29 06:22] LABS: PLATELET COUNT 27 10^3/uL (150-450)
--- NOTE | 2018-09-29 08:18 | PDOC PROGRESS REPORT ---
Subjective Progress Note for:: 09/29/18 Subjective:: Patient feeling better but counts are worse. Hemoglobin is dropped to 7.4, ANC is dropped to 800. Reason For Visit: ANEMIA, LEUKOPENIA Physical Exam Vital Signs: Temp Pulse Resp BP Pulse Ox 97.8 F 80 20 164/90 H 91 L 09/29/18 03:14 09/29/18 07:00 09/29/18 03:14 09/29/18 03:14 09/29/18 03:14 Intake & Output 09/28/18 09/29/18 09/30/18 06:59 06:59 06:59 Intake Total 4023 2200 Balance 4023 2200 Weight 81.8 kg 81.2 kg General appearance: PRESENT: no acute distress, well-developed, well-nourished Head exam: PRESENT: atraumatic, normocephalic Eye exam: PRESENT: conjunctiva pink, EOMI, PERRLA. ABSENT: scleral icterus Ear exam: PRESENT: normal external ear exam Mouth exam: PRESENT: moist, tongue midline Neck exam: ABSENT: carotid bruit, JVD, lymphadenopathy, thyromegaly Respiratory exam: PRESENT: clear to auscultation joe. ABSENT: rales, rhonchi, wheezes Cardiovascular exam: PRESENT: RRR. ABSENT: diastolic murmur, rubs, systolic murmur Pulses: PRESENT: normal dorsalis pedis pul Vascular exam: PRESENT: normal capillary refill GI/Abdominal exam: PRESENT: normal bowel sounds, soft. ABSENT: distended, guarding, mass, organolmegaly, rebound, tenderness Rectal exam: PRESENT: deferred Extremities exam: PRESENT: full ROM. ABSENT: calf tenderness, clubbing, pedal edema Neurological exam: PRESENT: alert, awake, oriented to person, oriented to place, oriented to time, oriented to situation, CN II-XII grossly intact. ABSENT: motor sensory deficit Psychiatric exam: PRESENT: appropriate affect, normal mood. ABSENT: homicidal ideation, suicidal ideation Skin exam: PRESENT: dry, intact, warm. ABSENT: cyanosis, rash Results Laboratory Results: 09/29/18 04:39 09/29/18 04:39 09/29/18 09/29/18 04:39 04:39 WBC 1.8 L RBC 2.42 L Hgb 7.4 L Hct 21.2 L MCV 88 MCH 30.4 MCHC 34.8 RDW 16.9 H Plt Count 27 L* Seg Neutrophils % Not Reportable Lymphocytes % Not Reportable Monocytes % Not Reportable Eosinophils % Not Reportable Basophils % Not Reportable Absolute Neutrophils Not Reportable Absolute Lymphocytes Not Reportable Absolute Monocytes Not Reportable Absolute Eosinophils Not Reportable Absolute Basophils Not Reportable Sodium 138.1 Potassium 3.7 Chloride 109 H Carbon Dioxide 22 Anion Gap 7 BUN 12 Creatinine 0.95 Est GFR ( Amer) > 60 Est GFR (Non-Af Amer) > 60 Glucose 79 Calcium 8.2 L Magnesium 1.3 L 09/21/18 08:37 NT-Pro-B Natriuret Pep 6250 H Impressions: Chest CT 09/20/18 00:00 IMPRESSION: Left upper lobe lung mass with direct involvement of a couple of ribs. No acute pulmonary infiltrate. Chest X-Ray 09/20/18 11:43 IMPRESSION: Persistent left upper lobe lung mass narrow shows cavitation. No acute infiltrate. Assessment & Plan - Diagnosis (1) C. difficile diarrhea Is this a current diagnosis for this admission?: Yes Plan: Improved, continue vancomycin (2) Cancer of lung, upper lobe Qualifiers: Laterality: left Qualified Code(s): C34.12 - Malignant neoplasm of upper lobe, left bronchus or lung Is this a current diagnosis for this admission?: Yes Plan: Continue treatment as an outpatient but will need a prolonged treatment delay most likely (3) Pancytopenia Is this a current diagnosis for this admission?: Yes Plan: Persistent, probably secondary to infection at this point, I will initiate Neupogen for him. He is not ready for discharge yet, will need to be monitored closely. If hemoglobin drops into the low sevens by tomorrow, would transfuse 1 unit of packed blood, if platelets drop below 20 would give 1 unit of platelets. (4) Anemia Qualifiers: Anemia type: bone marrow failure Bone marrow failure anemia type: pancytopenia, antineoplastic chemotherapy-induced Qualified Code(s): D61.810 - Antineoplastic chemotherapy induced pancytopenia; T45.1X5A - Adverse effect of antineoplastic and immunosuppressive drugs, initial encounter Is this a current diagnosis for this admission?: Yes Plan: Hold on transfusion today but probable transfusion tomorrow may be needed (5) Neutropenic fever Is this a current diagnosis for this admission?: Yes Plan: Start Neupogen today
[2018-09-29] MEDS: NICOTINE 21 MG/24 HR PATCH.TD24 TD SCH (10:10)
[2018-09-29] MEDS: MAGNESIUM OXIDE 400 MG TABLET PO SCH ×2 (10:11→17:20)
[2018-09-29] MEDS: FOLIC ACID 1 MG TABLET PO SCH (10:11)
[2018-09-29] MEDS: THIAMINE HCL 100 MG TABLET PO SCH (10:11)
[2018-09-29] MEDS: POTASSIUM CHLORIDE 10 MEQ CAPSULE.ER PO SCH (10:11)
[2018-09-29] MEDS: LISINOPRIL 10 MG TABLET PO SCH (10:11)
[2018-09-29] MEDS: FILGRASTIM INJ 480 MCG/1.6 ML VIAL SUBCUT SCH (10:20)
--- NOTE | 2018-09-29 18:58 | PDOC PROGRESS REPORT ---
Subjective Progress Note for:: 09/29/18 Subjective:: Mikael WHEATLEY II is a 53 year old male with a PMH significant for left upper lobe lung mass (undergoing chemotherapy, first treatment 09/12/2018), multiple DVTs/PE, on chronic Xarelto, chronic anemia, tobacco dependence, alcohol dependence. Patient is admitted to the hospitalist service for neutropenic fever and C. difficile. The patient was seen on morning rounds. He was found resting in bed comfortably on room air. He reports he is feeling well today; continues to have formed bowel movement. He denies abdominal discomfort, nausea, and vomiting. He further denies fever, chills, headache, dizziness, chest pain, palpitations, dyspnea, orthopnea, and cough. He has no new questions or concerns at this time. No concerns per nursing. Reason For Visit: ANEMIA, LEUKOPENIA Physical Exam Vital Signs: Temp Pulse Resp BP Pulse Ox 98.4 F 74 16 159/84 H 97 09/29/18 15:36 09/29/18 15:36 09/29/18 15:36 09/29/18 15:36 09/29/18 15:36 Intake & Output 09/28/18 09/29/18 09/30/18 06:59 06:59 06:59 Intake Total 4023 2200 595 Balance 4023 2200 595 Weight 81.8 kg 81.2 kg General appearance: PRESENT: no acute distress, cooperative, disheveled, well- developed, well-nourished - Overweight Head exam: PRESENT: atraumatic, normocephalic Eye exam: PRESENT: conjunctiva pink, EOMI, PERRLA. ABSENT: scleral icterus Ear exam: PRESENT: normal external ear exam Mouth exam: PRESENT: moist, tongue midline Teeth exam: PRESENT: poor dentation Neck exam: ABSENT: carotid bruit, JVD, lymphadenopathy, thyromegaly Respiratory exam: PRESENT: clear to auscultation joe, symmetrical, unlabored. ABSENT: rales, rhonchi, wheezes Cardiovascular exam: PRESENT: RRR, +S1, +S2. ABSENT: diastolic murmur, rubs, systolic murmur Pulses: PRESENT: normal dorsalis pedis pul Vascular exam: PRESENT: normal capillary refill GI/Abdominal exam: PRESENT: normal bowel sounds, soft. ABSENT: distended, guarding, mass, organolmegaly, rebound, tenderness Rectal exam: PRESENT: deferred Extremities exam: PRESENT: full ROM. ABSENT: calf tenderness, clubbing, pedal edema Neurological exam: PRESENT: alert, awake, oriented to person, oriented to place, oriented to time, oriented to situation, CN II-XII grossly intact. ABSENT: motor sensory deficit Psychiatric exam: PRESENT: appropriate affect, normal mood. ABSENT: homicidal ideation, suicidal ideation Skin exam: PRESENT: dry, intact, warm. ABSENT: cyanosis, rash Results Laboratory Results: 09/29/18 04:39 09/29/18 04:39 09/29/18 09/29/18 04:39 04:39 WBC 1.8 L RBC 2.42 L Hgb 7.4 L Hct 21.2 L MCV 88 MCH 30.4 MCHC 34.8 RDW 16.9 H Plt Count 27 L* Seg Neutrophils % Not Reportable Lymphocytes % Not Reportable Monocytes % Not Reportable Eosinophils % Not Reportable Basophils % Not Reportable Absolute Neutrophils Not Reportable Absolute Lymphocytes Not Reportable Absolute Monocytes Not Reportable Absolute Eosinophils Not Reportable Absolute Basophils Not Reportable Sodium 138.1 Potassium 3.7 Chloride 109 H Carbon Dioxide 22 Anion Gap 7 BUN 12 Creatinine 0.95 Est GFR ( Amer) > 60 Est GFR (Non-Af Amer) > 60 Glucose 79 Calcium 8.2 L Magnesium 1.3 L 09/21/18 08:37 NT-Pro-B Natriuret Pep 6250 H Impressions: Chest CT 09/20/18 00:00 IMPRESSION: Left upper lobe lung mass with direct involvement of a couple of ribs. No acute pulmonary infiltrate. Chest X-Ray 09/20/18 11:43 IMPRESSION: Persistent left upper lobe lung mass narrow shows cavitation. No acute infiltrate. Assessment and Plan - Diagnosis (1) C. difficile diarrhea Is this a current diagnosis for this admission?: Yes Plan: Significantly improved; formed bowel movements. Diarrhea in an immunocompromised patient who received chemotherapy 2 weeks ago (+) CDIFF PCR Continue PO vancomycin This is patient's first incident, treatment guidelines are 10 days of PO vancomycin 125mg PO QID x 10 days; currently Day #9 (2) Hypomagnesemia Is this a current diagnosis for this admission?: Yes Plan: Improved; 1.3 today Continue p.o. Magnesium oxide 800 mg BID Follow daily chemistries (3) Neutropenic fever Is this a current diagnosis for this admission?: Yes Plan: Improved; ANC now 0.8. Afebrile for >48 hours [id number] Neutropenic fever in a cancer patient who recently received his first chemoth erapy treatment (09/12/2018) C. diff PCR positive. CT scan chest negative for PNA UA negative Systolic murmur auscultated on exam, fortunately echocardiogram is benign. Blood cultures negative (final) Stool cultures are negative Tylenol for fever control p.o. Vancomycin for treatment of C. diff as above. Discussed with Dr. Chavez today; recommends keeping patient in house until ANC > 1.2. Dr. Chavez has started patient on Neupogen. 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 No evidence of gross blood loss Patient was admitted for, among other things, anemia 2 months ago. Hgb was 6.9 at that time. Now s/p 5U PRBCs this hospitalization, post-transfusion Hgb 8.7 today Thiamine, folate, and multivitamin supplement daily Monitor serial CBCs. Spoke with Dr. Chavez today; recommends additional PRBC if hemoglobin drops further tomorrow. He started the patient on Neupogen today. (5) Cancer of lung, upper lobe Qualifiers: Laterality: left Qualified Code(s): C34.12 - Malignant neoplasm of upper lobe, left bronchus or lung Is this a current diagnosis for this admission?: Yes Plan: Currently undergoing chemotherapy, received first treatment 09/12/[address] Arriaga, management per his expertise (6) Cavitary lesion of lung Is this a current diagnosis for this admission?: Yes Plan: Secondary to Lung CA. Seen on CXR Lesion noted to be expanding on chest CT June [address] upon admission only shows EUSEBIO lung mass, no infiltrate or pleural effusion Management per Oncology. (7) EtOH dependence Qualifiers: Substance use status: uncomplicated Qualified Code(s): F10.20 - Alcohol dependence, uncomplicated Is this a current diagnosis for this admission?: Yes Plan: Patient admits to drinking 8 shots per day Denies history of alcohol withdrawal seizures or DT Last drink over 72 hours ago, no evidence of alcohol withdrawal symptoms Continue daily multivitamin, thiamine and folate supplements Seizure precautions (8) History of DVT of lower extremity Is this a current diagnosis for this admission?: Yes Plan: History of multiple DVTs Home dose Xarelto currently on hold due to severe anemia Chronic anticoagulation per Heme/Oncology's expertise. (9) Lymphedema Is this a current diagnosis for this admission?: Yes Plan: Chronic lymphedema Keep extremities elevated ALEXANDRE hose as tolerated. Offered referral to lymphedema specialist, patient declined (10) Tobacco dependence Is this a current diagnosis for this admission?: Yes Plan: Patient admits to continuing to smoke despite lung cancer diagnosis [id number] smoking history Smoking cessation encouraged; nicotine patch offered (11) Hypocalcemia Is this a current diagnosis for this admission?: Yes Plan: Resolved Corrected calcium >9.0 (12) Thrombocytopenia Is this a current diagnosis for this admission?: Yes Plan: PLT 27 today Secondary to malignancy and chemotherapy treatments. Has received PLT x6 Holding anticoagulation. Check CBC in am. Transfuse as directed by Heme/Onc. (13) HTN (hypertension) Qualifiers: Hypertension type: essential hypertension Qualified Code(s): I10 - Essential (primary) hypertension Is this a current diagnosis for this admission?: Yes Plan: Persistently elevated blood pressures this admission; 142/72 - 172/86. Cardiac diet. Start lisinopril 10 mg daily today. - Time Time Spent with patient: 15-24 minutes Medications reviewed and adjusted accordingly: Yes Anticipated discharge: Home Within: within 48 hours
[2018-09-30 04:56] LABS: ABSOLUTE MONOCYTES (AUTO) 0.3 10^3/uL (0.1-1.4); ABSOLUTE NEUT (AUTO) 2.1 10^3/uL (1.7-8.2); BASOPHILS % (AUTO) 0.6 % (0-2); EOSINOPHILS % (AUTO) 0.8 % (0-6); HEMATOCRIT 21.3 % (37.9-51.0); LYMPHOCYTES % (AUTO) 28.7 % (13-45); MEAN CORPUSCULAR HEMOGLOBIN 30.2 pg (27.0-33.4); MEAN CORPUSCULAR HGB CONC 34.7 g/dL (32.0-36.0); MEAN CORPUSCULAR VOLUME 87 fl (80-97); MONOCYTES % (AUTO) 8.3 % (3-13); RED BLOOD COUNT 2.45 10^6/uL (4.35-5.55); RED CELL DISTRIBUTION WIDTH 16.6 % (11.5-14.0); SEGMENTED NEUTROPHILS % (AUTO) 61.6 % (42-78); TOTAL CELLS COUNTED % (AUTO) 100 %; WHITE BLOOD COUNT 3.5 10^3/uL (4.0-10.5)
[2018-09-30 05:05] LABS: HEMOGLOBIN 7.4 g/dL (13.5-17.0); PLATELET COUNT 38 10^3/uL (150-450)
[2018-09-30] MEDS: VANCOMYCIN HCL INJ 500 MG VIAL PO SCH ×3 (05:35→17:00)
[2018-09-30] MEDS: THIAMINE HCL 100 MG TABLET PO SCH (09:22)
[2018-09-30] MEDS: FILGRASTIM INJ 480 MCG/1.6 ML VIAL SUBCUT SCH (09:22)
[2018-09-30] MEDS: LISINOPRIL 10 MG TABLET PO SCH (09:22)
[2018-09-30] MEDS: POTASSIUM CHLORIDE 10 MEQ CAPSULE.ER PO SCH (09:22)
[2018-09-30] MEDS: NICOTINE 21 MG/24 HR PATCH.TD24 TD SCH (09:22)
[2018-09-30] MEDS: MAGNESIUM OXIDE 400 MG TABLET PO SCH ×2 (09:22→17:00)
[2018-09-30] MEDS: FOLIC ACID 1 MG TABLET PO SCH (09:22)
[2018-09-30] MEDS ORDERED: HYDROCHLOROTHIAZIDE 25 MG TABLET PO SCH (10:00)
[2018-09-30 14:47] LABS: HEMATOCRIT 24.6 % (37.9-51.0); HEMOGLOBIN 8.6 g/dL (13.5-17.0); MEAN CORPUSCULAR HEMOGLOBIN 30.4 pg (27.0-33.4); MEAN CORPUSCULAR HGB CONC 34.8 g/dL (32.0-36.0); MEAN CORPUSCULAR VOLUME 87 fl (80-97); RED BLOOD COUNT 2.81 10^6/uL (4.35-5.55); WHITE BLOOD COUNT 3.6 10^3/uL (4.0-10.5)
[2018-09-30 15:44] LABS: PLATELET COUNT 49 10^3/uL (150-450)
[2018-09-30 16:46] VITALS: BP 155/7
--- NOTE | 2018-10-03 11:48 | PDOC DISCHARGE SUMMARY ---
General - Admit/Disc Date/PCP Admission Date/Primary Care Provider: 09/20/18 14:25 GRETA CEDILLO PA-C Discharge Date: 09/30/18 - Discharge Diagnosis (1) C. difficile diarrhea Is this a current diagnosis for this admission?: Yes Summary: Resolved. Diarrhea in an immunocompromised patient who received chemotherapy 2 weeks ago (+) CDIFF PCR Received full 10 day course of PO vancomycin 125mg PO QID (2) Hypomagnesemia Is this a current diagnosis for this admission?: Yes Summary: Gradually improving. 1.3 today Continue p.o. Magnesium oxide 800 mg BID Recommend follow up BMP and Magnesium within 5-7 days. (3) Neutropenic fever Is this a current diagnosis for this admission?: Yes Summary: Resolved. ANC now 2.1. Afebrile for >48 hours [id number] Neutropenic fever in a cancer patient who recently received his first chemotherapy treatment (09/12/2018) C. diff PCR positive. CT scan chest negative for PNA UA negative Systolic murmur auscultated on exam, fortunately echocardiogram is benign. Blood cultures negative (final) Stool cultures are negative Treatment for C. diff as above. Dr. Chavez was consulted; started on neupogen. (4) Anemia Is this a current diagnosis for this admission?: Yes Summary: Improved. Hgb 7.3-> 8.7-> 8.2-> 8.2-> 7.4-> 8.6 Multifactorial; recent chemotherapy treatment, history of malignancy, heavy EtOH dependence, and nutritional deficiency all likely. No evidence of gross blood loss Now s/p 5U PRBCs this hospitalization Continue Thiamine, folate, and multivitamin supplement daily Dr. Chavez consulted; started the patient on Neupogen (5) Cancer of lung, upper lobe Is this a current diagnosis for this admission?: Yes Summary: Currently undergoing chemotherapy, received first treatment 09/12/[address] Arriaga, management per his expertise (6) Cavitary lesion of lung Is this a current diagnosis for this admission?: Yes Summary: Secondary to Lung CA. Seen on CXR Lesion noted to be expanding on chest CT June [address] upon admission only shows EUSEBIO lung mass, no infiltrate or pleural effusion Management per Oncology. (7) EtOH dependence Is this a current diagnosis for this admission?: Yes Summary: Patient admits to drinking 8 shots per day Denies history of alcohol withdrawal seizures or DT No evidence of alcohol withdrawal symptoms during admission Continue daily multivitamin, thiamine and folate supplements (8) History of DVT of lower extremity Is this a current diagnosis for this admission?: Yes Summary: History of multiple DVTs Home dose Xarelto currently on hold due to severe anemia Chronic anticoagulation per Heme/Oncology's expertise. (9) Lymphedema Is this a current diagnosis for this admission?: Yes Summary: Chronic lymphedema Keep extremities elevated ALEXANDRE hose as tolerated. Offered referral to lymphedema specialist, patient declined (10) Tobacco dependence Is this a current diagnosis for this admission?: Yes Summary: Patient admits to continuing to smoke despite lung cancer diagnosis [id number] smoking history Smoking cessation encouraged; nicotine patches provided (11) Hypocalcemia Is this a current diagnosis for this admission?: Yes Summary: Resolved Corrected calcium >9.0 (12) Thrombocytopenia Is this a current diagnosis for this admission?: Yes Summary: PLT 49 today Secondary to malignancy and chemotherapy treatments. Has received PLT x6 Holding anticoagulation. Heme/Onc consulted; started on neupogen. (13) HTN (hypertension) Is this a current diagnosis for this admission?: Yes Summary: Persistently elevated blood pressures this admission; 142/72 - 172/86. Continue cardiac diet and lisinopril 10 mg daily - Additional Information Resuscitation Status: Full Code Discharge Diet: Regular Discharge Activity: Activity As Tolerated, Balance Activity w/Rest Prescriptions: Ferrous Sulfate [Feosol 325 mg Tablet] 325 mg PO DAILY #30 tab Folic Acid [Folvite 1 mg Tablet] 1 mg PO DAILY #90 tablet Hydrochlorothiazide [Hydrodiuril 25 mg Tablet] 25 mg PO DAILY #30 tablet Lisinopril [Prinivil 10 mg Tablet] 10 mg PO DAILY #30 tablet Magnesium Oxide [Mag-Ox 400 mg Tablet] 800 mg PO BID #120 tablet Multivitamin [Multiple Vitamins] 1 each PO DAILY #90 tablet Nicotine [Nicoderm 21 mg/24 Hr Transderm Patch] 1 each TD DAILY #30 patch.td24 Thiamine HCl [Thiamine 100 mg Tablet] 100 mg PO DAILY #90 tablet Vancomycin HCl 125 mg PO Q6 #4 capsule Home Medications: Potassium Chloride 20 meq PO DAILY 09/20/18 Acetaminophen [Tylenol 325 mg Tablet] 975 mg PO Q6HP PRN tablet 09/30/18 Ferrous Sulfate [Feosol 325 mg Tablet] 325 mg PO DAILY #30 tab 09/30/18 Folic Acid [Folvite 1 mg Tablet] 1 mg PO DAILY #90 tablet 09/30/18 Hydrochlorothiazide [Hydrodiuril 25 mg Tablet] 25 mg PO DAILY #30 tablet Lisinopril [Prinivil 10 mg Tablet] 10 mg PO DAILY #30 tablet 09/30/18 Magnesium Oxide [Mag-Ox 400 mg Tablet] 800 mg PO BID #120 tablet 09/30/18 Multivitamin [Multiple Vitamins] 1 each PO DAILY #90 tablet 09/30/18 Nicotine [Nicoderm 21 mg/24 Hr Transderm Patch] 1 each TD DAILY #30 patch.td24 0 09/30/18 Thiamine HCl [Thiamine 100 mg Tablet] 100 mg PO DAILY #90 tablet 09/30/18 Vancomycin HCl 125 mg PO Q6 #4 capsule 09/30/18 History of Present Illness History of Present Illness: Per H&P by Sejal Perera NP: Mikael Chandler CORRY ROSS is a 53 year old male with a PMH significant for left upper lobe lung mass (undergoing chemotherapy, first treatment 09/12/2018), multiple DVTs/PE, on chronic Xarelto, chronic anemia, tobacco dependence, alcohol dependence. The patient reports he went to Dr. Millard's office for " IVF infusion." Upon arrival to the facility, the patient was noted to be tachycardic, febrile (unknown temperature), and laboratory studies indicative of leukopenia and significant anemia. The patient was sent to [facility] emergency department by his oncologist. Upon arrival to the ED, EKG reveals sinus tachycardia, no evidence of ischemia or infarction. CXR reveals left upper lobe lung mass, now showing cavitation. No acute infiltrate. Laboratory studies reveal leukopenia (WBC 0.3), anemia (Hgb 6.7), cytopenia (platelets 48k), hypocalcemia (Ca 6.3) and hypomagnesemia (MG 0.7). Upon assessment, patient is resting comfortably in bed on room air. He denies any symptoms of fever, chills, malaise, nausea or vomiting. The patient endorses symptoms of profound weakness and "0 energy "for the last "few weeks."Additionally, the patient states he has been experiencing intermittent diarrhea for the last week, since his initial chemotherapy treatment. In the emergency department, the patient received meropenem and vancomycin IV for empiric treatment of his neutropenic fever. Additionally, the patient received 2 U PRBC for his Hgb of 6.7. Plan to admit to hospitalist service for neutropenic fever and anemia. Oncology has been consulted. Physical Exam Vital Signs: Temp Pulse Resp BP Pulse Ox 98.2 F 74 16 155/7 H 93 09/30/18 16:45 09/30/18 16:45 09/30/18 16:45 09/30/18 16:45 09/30/18 16:45 General appearance: PRESENT: no acute distress, cooperative, disheveled, well- developed, well-nourished - overweight Head exam: PRESENT: atraumatic, normocephalic Eye exam: PRESENT: conjunctiva pink, EOMI, PERRLA. ABSENT: scleral icterus Ear exam: PRESENT: normal external ear exam Mouth exam: PRESENT: moist, tongue midline Teeth exam: PRESENT: poor dentation Neck exam: ABSENT: carotid bruit, JVD, lymphadenopathy, thyromegaly Respiratory exam: PRESENT: clear to auscultation joe, symmetrical, unlabored. ABSENT: rales, rhonchi, wheezes Cardiovascular exam: PRESENT: RRR, +S1, +S2. ABSENT: diastolic murmur, rubs, systolic murmur Pulses: PRESENT: normal dorsalis pedis pul Vascular exam: PRESENT: normal capillary refill GI/Abdominal exam: PRESENT: normal bowel sounds, soft. ABSENT: distended, guarding, mass, organolmegaly, rebound, tenderness Rectal exam: PRESENT: deferred Extremities exam: PRESENT: full ROM. ABSENT: calf tenderness, clubbing, pedal edema Neurological exam: PRESENT: alert, awake, oriented to person, oriented to place, oriented to time, oriented to situation, CN II-XII grossly intact. ABSENT: motor sensory deficit Psychiatric exam: PRESENT: appropriate affect, normal mood. ABSENT: homicidal ideation, suicidal ideation Skin exam: PRESENT: dry, intact, warm. ABSENT: cyanosis, rash Results Laboratory Results: 09/30/18 13:46 09/29/18 04:39 09/21/18 08:37 NT-Pro-B Natriuret Pep 6250 H Impressions: Chest CT 09/20/18 00:00 IMPRESSION: Left upper lobe lung mass with direct involvement of a couple of ribs. No acute pulmonary infiltrate. Chest X-Ray 09/20/18 11:43 IMPRESSION: Persistent left upper lobe lung mass narrow shows cavitation. No acute infiltrate. Qualifiers - * PATIENT BEING DISCHARGED WITH ANY OF THE FOLLOWING DIAGNOSIS: No Acute Heart Failure - Is this a Heart Failure Patient?: No LVEF < 40%?: No- if no continue to question #3 Plan Discharge Plan: Follow-up with Dr. Chavez next week. Hold Xarelto until instructed to resume by Dr. Chavez. Take medications as prescribed. STOP smoking and reduce EtOH intake. Return to the emergency department as needed for concerning symptoms. Time Spent: Greater than 30 Minutes
== END 2018-09-30 17:13 | disposition home or self-care (01) | DRG 809 ==
LOC: ER 11:09 → EH 14:25 → 3N 18:55
PROVIDERS: ADMIT Family Medicine; ATTEND Family Medicine
PROC: 30233N1 Transfusion of Nonautologous Red Blood Cells into Peripheral Vein, Percutaneous Approach (ICD-10-PCS; principal; 2018-09-20)
PROC: 30233N1 Transfusion of Nonautologous Red Blood Cells into Peripheral Vein, Percutaneous Approach (ICD-10-PCS; 2018-09-21)
PROC: 30233R1 Transfusion of Nonautologous Platelets into Peripheral Vein, Percutaneous Approach (ICD-10-PCS; 2018-09-21)
PROC: 30233R1 Transfusion of Nonautologous Platelets into Peripheral Vein, Percutaneous Approach (ICD-10-PCS; 2018-09-23)
PROC: 30233R1 Transfusion of Nonautologous Platelets into Peripheral Vein, Percutaneous Approach (ICD-10-PCS; 2018-09-25)
PROC: 30233N1 Transfusion of Nonautologous Red Blood Cells into Peripheral Vein, Percutaneous Approach (ICD-10-PCS; 2018-09-26)
PROC: 30233R1 Transfusion of Nonautologous Platelets into Peripheral Vein, Percutaneous Approach (ICD-10-PCS; 2018-09-27)
DX: D70.3 Neutropenia due to infection (principal); C34.12 Malignant neoplasm of upper lobe, left bronchus or lung; A04.72 Enterocolitis due to Clostridium difficile, not specified as recurrent; R50.81 Fever presenting with conditions classified elsewhere; E83.51 Hypocalcemia; E83.42 Hypomagnesemia; D64.9 Anemia, unspecified; I10 Essential (primary) hypertension; I73.9 Peripheral vascular disease, unspecified; K21.9 Gastro-esophageal reflux disease without esophagitis; D89.9 Disorder involving the immune mechanism, unspecified; F10.20 Alcohol dependence, uncomplicated; F17.210 Nicotine dependence, cigarettes, uncomplicated; Y90.9 Presence of alcohol in blood, level not specified; Z86.718 Personal history of other venous thrombosis and embolism; Z86.711 Personal history of pulmonary embolism; Z79.01 Long term (current) use of anticoagulants
CPT/HCPCS: 36415; 36430; 71046; 71250; 80048; 80053; 80061; 81001; 82803; 83036; 83605; 83735; 83880; 84100; 85025; 85027; 85610; 86850; 86900; 86901; 86920; 87040; 87045; 87086; 87205; 87493; 93005; 93010; 93306; 96361; 96374; 99285; J0610; J1442; J2185; J3370; J3475; J3480; J7030; J7050; P9016; P9035

== ENCOUNTER 2018-10-13 15:26 | Outpatient (CLI) | payer MEDICARE ==
[~2018-10-13 15:26] MED LIST: PEGFILGRASTIM INJ 6 MG/0.6 ML DISP.SYRIN SUBCUT PRN
[2018-10-13 16:03] VITALS: BP 140/71
== END 2018-10-13 16:21 | disposition home or self-care (01) ==
LOC: 5TH 15:26 → II 15:26
PROVIDERS: ATTEND Internal Medicine
PROC: 3E013GC Introduction of Other Therapeutic Substance into Subcutaneous Tissue, Percutaneous Approach (ICD-10-PCS; principal; 2018-10-13)
DX: Z76.89 Persons encountering health services in other specified circumstances (principal); C34.12 Malignant neoplasm of upper lobe, left bronchus or lung; D70.2 Other drug-induced agranulocytosis
CPT/HCPCS: 96372; J2505

== ENCOUNTER 2018-10-30 09:53 | Outpatient (CLI) | payer MEDICARE ==
[~2018-10-30 09:53] MED LIST changes: +ACETAMINOPHEN 325 MG TABLET PO PRN; +DIPHENHYDRAMINE HCL 25 MG CAPSULE PO PRN; +FUROSEMIDE INJ/PF 20 MG/2 ML SDV IV PRN; -PEGFILGRASTIM INJ 6 MG/0.6 ML DISP.SYRIN SUBCUT PRN
[2018-10-30 11:12] LABS: MEAN CORPUSCULAR HEMOGLOBIN 33.1 pg (27.0-33.4); MEAN CORPUSCULAR HGB CONC 35.3 g/dL (32.0-36.0); RED BLOOD COUNT 1.92 10^6/uL (4.35-5.55); WHITE BLOOD COUNT 5.2 10^3/uL (4.0-10.5)
[2018-10-30] MEDS ORDERED: NORMAL SALINE 250 ML IV PRN (11:30)
[2018-10-30 11:49] LABS: HEMOGLOBIN 6.3 g/dL (13.5-17.0)
[2018-10-30 11:50] LABS: MEAN CORPUSCULAR VOLUME 94 fl (80-97); PLATELET COUNT 92 10^3/uL (150-450)
[2018-10-30 18:41] VITALS: BP 135/74
== END 2018-10-30 18:50 | disposition home or self-care (01) ==
LOC: II 09:53 → 2S 10:50 → II 18:50
PROVIDERS: ATTEND Internal Medicine
PROC: 30233N1 Transfusion of Nonautologous Red Blood Cells into Peripheral Vein, Percutaneous Approach (ICD-10-PCS; principal; 2018-10-30)
DX: D50.9 Iron deficiency anemia, unspecified (principal)
CPT/HCPCS: 86900; 86901; 36415; 36430; 86850; 86920; P9016

== ENCOUNTER → 2018-10-31 | Outpatient (CLI) | payer MEDICARE ==
--- NOTE | 2018-10-31 10:31 | RADIOLOGY REPORT (SQ) ---
EXAM DESCRIPTION: CT CHEST WITH; CT ABD/PELVIS WITH IV ONLY COMPLETED DATE/TIME: 10/31/2018 9:46 am; 10/31/2018 9:35 am REASON FOR STUDY: C34.12 MALIGNANT NEOPLASM OF UPPER LOBE, LEFT BRONCHUS OR LUNG C34.12 MALIGNANT N EOPLASM OF UPPER LOBE, LEFT BRONCHUS OR BALBIR COMPARISON: CT chest 07/20/2018, 09/20/2018 PET-CT 08/27/2018 CONTRAST TYPE AND DOSE: contrast/concentration: Isovue 350.00 mg/ml; Total Contrast Delivered: 78.0 ml; Total Saline Delivered: 67.0 ml RENAL FUNCTION: Creatinine 1.3 TECHNIQUE: CT scan of the chest performed using helical scanning technique with dynamic intravenous contrast injection. Images reviewed with lung, soft tissue and bone windows. Reconstructed coronal a nd sagittal MPR images reviewed. All images stored on PACS. CT scan of the abdomen and pelvis performed with intravenous and without oral contrastusing helical s kae technique with dynamic intravenous contrast injection. Images reviewed with lung, soft tissu e and bone windows. Reconstructed coronal and sagittal MPR images reviewed. Delayed images for eval uation of the urinary system also acquired and evaluated. All images stored on PACS. All CT scanners at this facility use dose modulation, iterative reconstruction, and/or weight based d osing when appropriate to reduce radiation dose to as low as reasonably achievable (ALARA). [facility]: Dose Right [facility]: CareDose [facility]: Dose Right [facility]: Teradose 4D [facility]: [employer] RADIATION DOSE: CT Rad equipment meets quality standard of care and radiation dose reduction techniq ues were employed. CTDIvol: 4.4 - 4.5 mGy. DLP: 869 mGy-cm. . LIMITATIONS: None. FINDINGS: CHEST: LUNGS AND PLEURA: The left upper lobe mass is now a thin walled cavitary nodule with debris centrally , 5 cm transverse by 5.3 cm AP (was 7.6 x 7 cm on 09/20/2018). There is adjacent erosion of the left lateral 4th and 5th ribs. No bulky left chest wall tumor. Remainder of the lungs are well inflated and clear. No other pulmonary nodules. No pleural effusion or pneumothorax. HILAR AND MEDIASTINAL STRUCTURES: Enlarged right paratracheal and precarinal lymph nodes have resolve d. HEART AND VASCULAR STRUCTURES: No aneurysm or dissection. No central pulmonary emboli. No pericardi al effusion. HARDWARE: None. THYROID AND OTHER SOFT TISSUES: Mild gynecomastia BONES: No significant finding. OTHER: No other significant finding. ABDOMEN AND PELVIS: LIVER: Normal size. No masses. No dilated ducts. SPLEEN: Normal size. No focal lesions. PANCREAS: No masses. No significant calcifications. No adjacent inflammation or peripancreatic fluid collections. Pancreatic duct not dilated. GALLBLADDER: Gallstones. No inflammatory changes to suggest cholecystitis. ADRENAL GLANDS: No significant masses or asymmetry. RIGHT KIDNEY AND URETER: No solid masses. 6 mm right midpole intrarenal nonobstructive stone, 540 Ho unsfield units. No hydronephrosis or hydroureter. LEFT KIDNEY AND URETER: No solid masses. Less than 5 mm left midpole and lower pole intrarenal nonob structive stones. No hydronephrosis or hydroureter. AORTA AND VESSELS: No aneurysm. No dissection. Renal arteries, SMA, celiac without stenosis. RETROPERITONEUM: No retroperitoneal adenopathy, hemorrhage or masses. BOWEL AND PERITONEAL CAVITY: There is abnormal thickening of the distal sigmoid colon from chronic in flammation. Tumor could not entirely be excluded. In the tissue planes between the undersurface of the sigmoid colon and bladder dome, a fluid-filled abscess or tract is present 1.6 x 1.3 cm in size. Adjacent bladder dome thickening is present. This likely represents an evolving colovesical fistula from diverticulitis. Underlying colon malignancy could not be excluded. These findings are best sh own on axial images 60-68, and coronal image 38-43. Remainder of the gastrointestinal tract is otherwise unremarkable aside from a mobile cecum in the mi d epigastric region. Normal duodenojejunal junction suggests against foregut malrotation. APPENDIX: Not identified ABDOMINAL WALL: No masses. No hernias. PELVIS: No mass or free fluid. Bladder dome thickening adjacent to a small abscess or fistula from t he sigmoid colon, best shown on coronal images 37 through 43. BONES: No significant or acute findings. OTHER: No other significant finding. 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
== END ==
LOC: RAD 08:55
PROVIDERS: ATTEND Internal Medicine
DX: C34.12 Malignant neoplasm of upper lobe, left bronchus or lung (principal); K63.2 Fistula of intestine
CPT/HCPCS: 71260; 74177

== ENCOUNTER 2018-12-15 07:44 | Outpatient (CLI) | payer MEDICARE ==
[~2018-12-15 07:44] MED LIST changes: -ACETAMINOPHEN 325 MG TABLET PO PRN; +CARBOPLATIN IV PRN; +DEXAMETHASONE 10 MG in NS 50 ML IV PRN; +DIPHENHYDRAMINE 50 MG in NS 50 ML IV PRN; -DIPHENHYDRAMINE HCL 25 MG CAPSULE PO PRN; +FAMOTIDINE 20 MG in NS 50 ML IV PRN; -FUROSEMIDE INJ/PF 20 MG/2 ML SDV IV PRN; +NORMAL SALINE 250 ML @ KVO IV PRN; +NORMAL SALINE IV PRN; +PACLITAXEL SEMI SYNTHETIC IV PRN; +PALONOSETRON 0.25 MG/5 ML VIAL IV PRN
[2018-12-15 08:13] VITALS: BP 155/86
== END 2018-12-15 11:35 | disposition home or self-care (01) ==
LOC: II 07:44 → 5TH 08:08 → II 11:35
PROVIDERS: ATTEND Internal Medicine
PROC: 3E03305 Introduction of Other Antineoplastic into Peripheral Vein, Percutaneous Approach (ICD-10-PCS; principal; 2018-12-15)
PROC: 3E0333Z Introduction of Anti-inflammatory into Peripheral Vein, Percutaneous Approach (ICD-10-PCS; 2018-12-15)
PROC: 3E033GC Introduction of Other Therapeutic Substance into Peripheral Vein, Percutaneous Approach (ICD-10-PCS; 2018-12-15)
DX: Z51.11 Encounter for antineoplastic chemotherapy (principal); C34.12 Malignant neoplasm of upper lobe, left bronchus or lung
CPT/HCPCS: 96413; 96415; 96367; 96375; J1200; J9045; J7050; J9267; S0028; J1100; J2469; 96417

== ENCOUNTER 2018-12-22 07:40 | Outpatient (CLI) | payer MEDICARE ==
[~2018-12-22 07:40] MED LIST changes: -CARBOPLATIN IV PRN; -DEXAMETHASONE 10 MG in NS 50 ML IV PRN; -DIPHENHYDRAMINE 50 MG in NS 50 ML IV PRN; -FAMOTIDINE 20 MG in NS 50 ML IV PRN; -NORMAL SALINE IV PRN; -PACLITAXEL SEMI SYNTHETIC IV PRN; -PALONOSETRON 0.25 MG/5 ML VIAL IV PRN
[2018-12-22 07:54] VITALS: BP 165/87
[2018-12-22] MEDS ORDERED: DEXAMETHASONE 10 MG in NS 50 ML IV PRN ×4 (08:00)
[2018-12-22] MEDS ORDERED: DIPHENHYDRAMINE 50 MG in NS 50 ML IV PRN (08:00)
[2018-12-22] MEDS ORDERED: CARBOPLATIN 250 MG in NORMAL SALINE 250 ML IV PRN (08:00)
[2018-12-22] MEDS ORDERED: FAMOTIDINE 20 MG in NS 50 ML IV PRN (08:00)
[2018-12-22] MEDS ORDERED: PACLITAXEL SEMI SYNTHETIC IV PRN (08:00)
[2018-12-22] MEDS ORDERED: NORMAL SALINE IV PRN (08:00)
[2018-12-22] MEDS ORDERED: PALONOSETRON 0.25 MG/5 ML VIAL IV PRN (08:00)
== END 2018-12-22 11:45 | disposition home or self-care (01) ==
LOC: II 07:40 → 5TH 07:42 → II 11:45
PROVIDERS: ATTEND Internal Medicine
PROC: 3E03305 Introduction of Other Antineoplastic into Peripheral Vein, Percutaneous Approach (ICD-10-PCS; principal; 2018-12-22)
PROC: 3E0333Z Introduction of Anti-inflammatory into Peripheral Vein, Percutaneous Approach (ICD-10-PCS; 2018-12-22)
PROC: 3E033GC Introduction of Other Therapeutic Substance into Peripheral Vein, Percutaneous Approach (ICD-10-PCS; 2018-12-22)
DX: Z51.11 Encounter for antineoplastic chemotherapy (principal); C34.12 Malignant neoplasm of upper lobe, left bronchus or lung
CPT/HCPCS: 96413; 96367; 96375; 96417; J1200; J9045; J7050; J9267; S0028; J1100; J2469

== ENCOUNTER → 2019-03-14 | Outpatient (CLI) | payer MEDICARE ==
--- NOTE | 2019-03-14 12:36 | RADIOLOGY REPORT (SQ) ---
EXAM DESCRIPTION: CT CHEST WITHOUT COMPLETED DATE/TIME: 03/14/2019 8:59 am REASON FOR STUDY: LUNG CA (C34.92) C34.92 MALIGNANT NEOPLASM OF UNSP PART OF LEFT BRONCHUS OR L COMPARISON: 10/31/2018 TECHNIQUE: CT scan performed of the chest without intravenous contrast. Images reviewed with lung, soft tissue and bone windows. Reconstructed coronal and sagittal MPR images reviewed. All images st ored on PACS. All CT scanners at this facility use dose modulation, iterative reconstruction, and/or weight based d osing when appropriate to reduce radiation dose to as low as reasonably achievable (ALARA). [facility]: Dose Right [facility]: CareDose [facility]: Dose Right [facility]: Teradose 4D [facility]: [employer] RADIATION DOSE: CT Rad equipment meets quality standard of care and radiation dose reduction techniq ues were employed. CTDIvol: 4.4 mGy. DLP: 198 mGy-cm. mGy. LIMITATIONS: No technical limitations. FINDINGS: LUNGS AND PLEURA: Cavitary left upper lobe pleural-based mass is smaller on the current st udy, measuring 38.8 45.5 mm compared to 51 x 52.7 mm on the prior study. There is some underlying kerwin ne destruction. No metastatic lesions in the lungs. HILAR AND MEDIASTINAL STRUCTURES: No identified masses or abnormal nodes. No obvious aneurysm. HEART AND VASCULAR STRUCTURES: No aneurysm. No pericardial effusion. UPPER ABDOMEN: Gallstones are present renal calculi are present. THYROID AND OTHER SOFT TISSUES: No masses. No adenopathy. BONES: No significant finding. HARDWARE: None in the chest. OTHER: No other significant findings. IMPRESSION: There appears to be further treatment response to the left upper lobe mass that is small er as described. Cholelithiasis. Nephrolithiasis. TECHNICAL DOCUMENTATION: JOB ID: [id number] Quality ID # [id number]: Final reports with documentation of one or more dose reduction techniques (e.g., Au tomated exposure control, adjustment of the mA and/or kV according to patient size, use of iterative reconstruction technique) 2010 [employer]- All Rights Reserved Reading location - IP/workstation name: [email or web address]
== END ==
LOC: RAD 08:38
PROVIDERS: ATTEND Radiology Radiation Oncology
DX: C34.92 Malignant neoplasm of unspecified part of left bronchus or lung (principal)
CPT/HCPCS: 71250

== ENCOUNTER → 2019-05-29 | Outpatient (CLI) | payer MEDICARE ==
--- NOTE | 2019-05-30 10:51 | RADIOLOGY REPORT (SQ) ---
EXAM DESCRIPTION: PET CT SKULL/THIGH COMPLETED DATE/TIME: 05/29/2019 9:08 pm REASON FOR STUDY: Lung Cancer C34.12 MALIGNANT NEOPLASM OF UPPER LOBE, LEFT BRONCHUS OR BALBIR COMPARISON: PET from 08/27/[address] of the chest without contrast from 03/14/2019. RADIONUCLIDE AND DOSE: 8.2 mCi F18 FDG The route of agent administration: Intravenous FASTING BLOOD SUGAR: 76 mg/dl CONTRAST TYPE AND DOSE: No CT contrast given. TECHNIQUE: Blood glucose level was verified. Above dose of FDG was injected intravenously. 2-D seg mented attenuation correction images were obtained from the base of the skull to the midthighs. Nonc ontrast CT images were obtained for attenuation correction and fusion with emission images. CT image s were performed without oral or intravenous contrast and are not sensitive for parenchymal lesions. A series of overlapping emission PET images were obtained. Images reviewed and manipulated at [facility] work station by the radiologist. Images stored on PACS. LIMITATIONS: None. FINDINGS: HEAD AND NECK: No areas of abnormal metabolic activity in the soft tissues of the head and neck. CHEST: The 3.9 x 3.3 cm partially necrotic mass in the left upper lobe (image 77 of series 3) that ab uts the pleura and erodes the adjacent 5th rib is unchanged in size compared to the 03/14/2019 CT; on PET, and there is a single focus of mild FDG uptake along the anterior aspect of the mass that has a maximum SUV of 2.9. There is a right upper paratracheal lymph node (image 67 of series 3) that mary ures 7 mm in short axis diameter and that has increased in size from the prior CT; on PET the lymph n ode demonstrates mild FDG uptake with a maximum SUV of 2.5. There is a 10 mm short-axis lateral charles cardial lymph node on image 93 of series 3 that has increased in size and it demonstrates avid FDG up take with a maximum SUV of 5.9. In the right hemithorax there is a new tubular branching opacity in the right upper lobe that measure s 2.5 x 1.6 cm and is FDG avid with a maximum SUV of 4. There are 2 new 6 mm subsolid nodules in the right upper lobe (images 72 and 74 of series 3) that dem onstrate no FDG uptake. ABDOMEN AND PELVIS: The liver demonstrates heterogeneous non focal FDG uptake with an average SUV of 1.4. There is a focus of increased FDG uptake (with a maximum SUV of 7) between the dome of the live r and an adjacent loop of thickened sigmoid colon that could represent a colovesical fistula. PROXIMAL LOWER EXTREMITIES: No areas of abnormal metabolic activity in the soft tissues of the lower extremities. BONES: No areas of abnormal metabolic activity in the imaged axial and appendicular skeleton. ADDITIONAL CT FINDINGS: The thyroid gland is enlarged and heterogeneous. The heart is enlarged. The re is no pericardial effusion. The diffuse low attenuation hepatic parenchyma is consistent with hep atic steatosis. There is cholelithiasis without acute cholecystitis. The spleen is normal in size. There is no adrenal mass or abnormality of the pancreas. There are bilateral caliceal calculi that measure up to 7 mm in diameter ; on the left there is a duplex kind electing system draining into a b ifid ureter. The 5 x 4 mm calculus in the distal left ureter (image 210 of series 3) is unchanged. The wall of the nerve bladder is circumferentially thickened. The prostate gland is enlarged. There is colonic diverticulosis without diverticulitis. OTHER: No other findings. IMPRESSION: 1. The partially necrotic mass in the left upper lobe that abuts the pleura and erodes the adjacent 5th rib is unchanged in size compared to the 03/14/2019 CT and on PET there is a focus o f mild FDG uptake along the anterior aspect of the mass that has a maximum SUV of 2.9. 2. Enlarging right upper paratracheal and lateral pericardial lymph nodes that demonstrate varying d egrees of mild FDG uptake. 3. New tubular branching opacity in the right upper lobe that measures 2.5 x 1.6 cm and is FDG avid with a maximum SUV of 4 - the finding could represent a metastasis. 4. New 6 mm sub solid nodules in the right upper lobe (image 72 and 74 series 3) that demonstrate no avid FDG uptake - continued CT follow-up is recommended. 5. Colovesical fistula. TECHNICAL DOCUMENTATION: JOB ID: [id number] 1027 [employer]- All Rights Reserved Reading location - IP/workstation name: [email or web address]
== END ==
LOC: RAD 09:31
PROVIDERS: ATTEND Internal Medicine
DX: C34.12 Malignant neoplasm of upper lobe, left bronchus or lung (principal)
CPT/HCPCS: 78815; A9552

== ENCOUNTER 2019-09-18 12:53 | Emergency (ER) | payer MEDICARE ==
[2019-09-18] MEDS ORDERED: NORMAL SALINE 1000 ML 1,000 ML IV PRN (13:00)
[2019-09-18] MEDS ORDERED: NORMAL SALINE 1000 ML 1,000 ML IV ONE (13:10)
[2019-09-18 13:34] LABS: ABSOLUTE LYMPHOCYTES (AUTO) 0.2 10^3/uL (0.5-4.7); ABSOLUTE MONOCYTES (AUTO) 0.2 10^3/uL (0.1-1.4); ABSOLUTE NEUT (AUTO) 3.2 10^3/uL (1.7-8.2); BASOPHILS % (AUTO) 0.6 % (0-2); EOSINOPHILS % (AUTO) 1.1 % (0-6); HEMATOCRIT 23.1 % (37.9-51.0); HEMOGLOBIN 8.5 g/dL (13.5-17.0); MEAN CORPUSCULAR HEMOGLOBIN 49.7 pg (27.0-33.4); MEAN CORPUSCULAR HGB CONC 36.9 g/dL (32.0-36.0); MONOCYTES % (AUTO) 5.9 % (3-13); PLATELET COUNT 100 10^3/uL (150-450); RED BLOOD COUNT 1.72 10^6/uL (4.35-5.55); RED CELL DISTRIBUTION WIDTH 14.4 % (11.5-14.0); SEGMENTED NEUTROPHILS % (AUTO) 86.4 % (42-78); TOTAL CELLS COUNTED % (AUTO) 100 %; WHITE BLOOD COUNT 3.7 10^3/uL (4.0-10.5)
--- NOTE | 2019-09-18 13:36 | RADIOLOGY REPORT (SQ) ---
EXAM DESCRIPTION: CT HEAD WITHOUT IMAGES COMPLETED DATE/TIME: 09/18/2019 1:23 pm REASON FOR STUDY: t1 -per dr spears r/o stroke COMPARISON: None. TECHNIQUE: Axial images acquired through the brain without intravenous contrast. Images reviewed wi th bone, brain and subdural windows. Additional sagittal and coronal reconstructions were generated. Images stored on PACS. All CT scanners at this facility use dose modulation, iterative reconstruction, and/or weight based d osing when appropriate to reduce radiation dose to as low as reasonably achievable (ALARA). [facility]: Dose Right [facility]: CareDose [facility]: Dose Right [facility]: Teradose 4D [facility]: [employer] RADIATION DOSE: CT Rad equipment meets quality standard of care and radiation dose reduction techniq ues were employed. CTDIvol: 53.2 mGy. DLP: 1070 mGy-cm. LIMITATIONS: None. FINDINGS: There is no acute intracranial hemorrhage, vascular territorial infarct, extra-axial fluid collection, mass effect, vasogenic edema, or midline shift. The winn-white matter differentiation i s preserved. There is no effacement of the cerebral sulci or basal subarachnoid cisterns. The calib er of the ventricles is concordant with the degree of sulcation ; there is no ventriculomegaly. There is a polypoid low-attenuation lesion in the right frontal sinus that could represent a mucous r etention cyst. The other paranasal sinuses are clear. The orbits and globes are intact. There is n o fracture of the calvarium. IMPRESSION: No acute intracranial abnormality. EVIDENCE OF ACUTE STROKE: NO. COMMENT: Quality ID # 436: Final reports with documentation of one or more dose reduction techniques (e.g., Automated exposure control, adjustment of the mA and/or kV according to patient size, use of iterative reconstruction technique) TECHNICAL DOCUMENTATION: JOB ID: [id number] 2010 [employer]- All Rights Reserved Reading location - IP/workstation name: [email or web address]
[2019-09-18 13:43] LABS: INTERNATIONAL RATION (INR) 0.97; PROTHROMBIN TIME 12.9 SEC (11.4-15.4)
[2019-09-18 13:49] LABS: ALBUMIN 3.9 g/dL (3.5-5.0); ALCOHOL 32 mg/dL (NONE DETECTED); ALKALINE PHOSPHATASE 85 U/L (38-126); ANION GAP 15 (5-19); ASPARTATE AMINO TRANSFERASE 59 U/L (17-59); BILIRUBIN,DIRECT 0.2 mg/dL (0.0-0.4); BILIRUBIN,TOTAL 0.7 mg/dL (0.2-1.3); BLOOD UREA NITROGEN 19 mg/dL (7-20); CALCIUM 7.6 mg/dL (8.4-10.2); CARBON DIOXIDE 17 mmol/L (22-30); CHLORIDE 99 mmol/L (98-107); GLUCOSE 79 mg/dL (75-110); POTASSIUM 4.5 mmol/L (3.6-5.0); TOTAL PROTEIN 7.3 g/dL (6.3-8.2)
[2019-09-18 13:58] LABS: VENOUS BLOOD BASE EXCESS -8.9 mmol/L; VENOUS BLOOD HCO3 15.8 mmol/L (20-32); VENOUS BLOOD PCO2 29.8 mmHg (35-63); VENOUS BLOOD PH 7.34 (7.30-7.42)
[2019-09-18 14:00] LABS: MEAN CORPUSCULAR VOLUME 135 fl (80-97)
[2019-09-18 14:03] LABS: ANISOCYTOSIS SLIGHT; PLATELET COMMENT DECREASED
[2019-09-18 16:24] LABS: URINE AMPHETAMINES SCREEN NEGATIVE; URINE BARBITURATES SCREEN NEGATIVE; URINE BENZODIAZEPINES SCREEN NEGATIVE; URINE COCAINE SCREEN NEGATIVE; URINE MARIJUANA (THC) SCREEN NEGATIVE; URINE METHADONE SCREEN NEGATIVE; URINE PHENCYCLIDINE SCREEN NEGATIVE
[2019-09-18] MEDS ORDERED: NORMAL SALINE 250 ML IV PRN (17:34)
--- NOTE | 2019-09-18 17:42 | ER Document Report ---
ED Dizziness/Weakness - General Chief Complaint: Syncope Stated Complaint: SYNCOPE Time Seen by Provider: 09/18/19 13:00 Primary Care Provider: ULICES MCGEE MD [Primary Care Provider] - Follow up as needed Mode of Arrival: Medic Information source: Patient TRAVEL OUTSIDE OF THE [place] IN LAST 30 DAYS: No - HPI Notes: Patient presents after a syncopal episode. Patient states that he remembers turning on the light in his bedroom and walking towards the kitchen. He states the next thing he remembers he was lying facedown on the floor. He states that he tried to get up but he was too weak and cannot get his arms or legs to work to get him off of the floor. When a friend came over this morning to visit they found him lying face down and called the ambulance. The ambulance crew states they found the patient lying facedown on the floor. There is no incontinence of urine or stool. Ambulance states that they were able to ambulate the patient without difficulty at the scene but patient with orthostatic so they brought the patient to the emergency department. Patient states is not any recent fever. No vomiting or diarrhea. He states he normally has 2 drinks of alcohol per day and did not have any extra yesterday. He denies any drug use. He states he does have lung cancer and is currently undergoing chemotherapy for that. He is also had radiation in the past but none recently. He states he has never had any type of "passing out" in the past. He denies any pain at this time. Patient symptoms were severe. They were constant. Nothing made them better or worse. The weakness apparently rated throughout his body. - Related Data Allergies/Adverse Reactions: Penicillins Allergy (Verified 09/20/18 11:13) Past Medical History - General Information source: Patient - Social History Smoking Status: Current Every Day Smoker Chew tobacco use (# tins/day): No Frequency of alcohol use: Heavy Drug Abuse: None Family History: Hypertension, Malignancy - Mother with breast cancer Patient has homicidal ideation: No - Past Medical History Cardiac Medical History: Reports: Hx Hypertension, Hx Peripheral Vascular Disease Denies: Hx Congestive Heart Failure, Hx Heart Attack Pulmonary Medical History: Reports: Hx Pneumonia Denies: Hx Asthma, Hx Bronchitis, Hx COPD, Hx Tuberculosis Neurological Medical History: Denies: Hx Migraine, Hx Seizures, Hx Parkinson's Disease Endocrine Medical History: Denies: Hx Diabetes Mellitus Type 2, Hx Hyperthyroidism, Hx Hypothyroidism Renal/ Medical History: Denies: Hx Benign Prostatic Hyperplasia, Hx End Stage Renal Disease, Hx Kidney Stones, Hx Peritoneal Dialysis GI Medical History: Reports: Hx Gastroesophageal Reflux Disease. Denies: Hx Cirrhosis Musculoskeletal Medical History: Denies Hx Arthritis, Denies Hx Multiple Sclerosis Psychiatric Medical History: Denies: Hx Bipolar Disorder, Hx Depression, Hx Schizophrenia Traumatic Medical History: Denies: Hx Gunshot Wound, Hx Traumatic Brain Injury Past Surgical History: Reports: Other - Bronchoscopy x2 - Immunizations Hx Diphtheria, Pertussis, Tetanus Vaccination: Yes Review of Systems - Review of Systems Constitutional: denies: Chills, Fever Cardiovascular: denies: Chest pain, Palpitations Respiratory: denies: Cough, Short of breath -: Yes All other systems reviewed and negative Physical Exam - Vital signs Vitals: Temp 98.0 F 09/18/19 12:54 Interpretation: Normal - General General appearance: Appears well, Alert - HEENT Head: Normocephalic, Atraumatic Eyes: Normal Pupils: PERRL - Respiratory Respiratory status: No respiratory distress Chest status: Nontender Breath sounds: Normal Chest palpation: Normal - Cardiovascular Rhythm: Regular Heart sounds: Normal auscultation Murmur: No - Abdominal Inspection: Normal Distension: No distension Bowel sounds: Normal Tenderness: Nontender Organomegaly: No organomegaly - Back Back: Normal, Nontender - Extremities General upper extremity: Normal inspection, Nontender, Normal color, Normal ROM, Normal temperature General lower extremity: Normal inspection, Nontender, Normal color, Normal ROM, Normal temperature, Normal weight bearing. 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 No: Pronator drift Sensory: Normal - Psychological Associated symptoms: Normal affect, Normal mood - Skin Skin Temperature: Warm Skin Moisture: Dry Skin Color: Normal Course - Re-evaluation Re-evalutation: 09/18/19 17:41 Patient had an apparent syncopal episode at home and was too weak to get himself to stand up. However now patient can ambulate about the emergency department without problem. He states he does not feel dizzy or weak when he walks. However he still has an increase of his heart rate when he stands up. His blood pressure remained stable but his heart rate goes from approximately 80-130. This is despite 2 L of fluid. His hemoglobin is 8.5 and he has had to be transfused in the past. I did call and discussed the patient with Dr. Mcgee he states it would be reasonable to transfuse the patient 1 unit of blood, this has been ordered. Also a CTA is currently been ordered to rule out pulmonary embolism. Despite laying on the floor all evening patient had no incontinence of urine or stool and has no elevated CPK. Patient does have an elevated lactate but no obvious evidence of infection. 09/18/19 19:11 At this time patient is awaiting results of his CTA as well as of his blood transfusion. Care of the patient in the past after Dr. Harmon will follow up on the CTA as well as reassess the patient after the blood transfusion. - Vital Signs Vital signs: Temp Pulse Resp BP Pulse Ox 97.9 F 90 21 H 137/83 H 100 09/18/19 18:49 09/18/19 15:55 09/18/19 17:30 09/18/19 17:30 09/18/19 18:00 - Laboratory Result Diagrams: 09/18/19 13:16 09/18/19 13:16 Laboratory results interpreted by me: 09/18/19 09/18/19 09/18/19 13:16 13:16 13:40 WBC 3.7 L RBC 1.72 L Hgb 8.5 L Hct 23.1 L MCV 135 H MCH 49.7 H MCHC 36.9 H RDW 14.4 H Plt Count 100 L Lymph % (Auto) 6.0 L Absolute Lymphs (auto) 0.2 L Seg Neutrophils % 86.4 H VBG pCO2 VBG HCO3 Sodium 130.8 L Carbon Dioxide 17 L Lactic Acid 3.8 H Calcium 7.6 L Crossmatch 09/18/19 09/18/19 09/18/19 13:40 17:42 18:34 WBC RBC Hgb Hct MCV MCH MCHC RDW Plt Count Lymph % (Auto) Absolute Lymphs (auto) Seg Neutrophils % VBG pCO2 29.8 L VBG HCO3 15.8 L Sodium Carbon Dioxide Lactic Acid Calcium Crossmatch See Detail See Detail - Diagnostic Test Radiology reviewed: Image reviewed, Reports reviewed - EKG Interpretation by Me EKG shows normal: Sinus rhythm Rate: Normal - 68 Rhythm: NSR Jenkins/QRS: No: Right axis deviation, Left axis deviation Discharge - Discharge Clinical Impression: Syncope and collapse, Tobacco dependence Anemia Qualifiers: Anemia type: iron deficiency Iron deficiency anemia type: chronic blood loss Q ualified Code(s): 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
--- NOTE | 2019-09-18 18:17 | EKG REPORT ---
SEVERITY:- ABNORMAL ECG - SINUS RHYTHM. ANTERIOR INFARCT, AGE INDETERMINATE : Confirmed by: Jamey Modi MD 18-Sep-2019 18:16:56
--- NOTE | 2019-09-18 19:01 | RADIOLOGY REPORT (SQ) ---
EXAM DESCRIPTION: CTA CHEST IMAGES COMPLETED DATE/TIME: 09/18/2019 5:07 pm REASON FOR STUDY: SYNCOPE-HX OF CANCER. Malignant neoplasm of the left upper lobe. COMPARISON: CT chest, 03/14/2019. CT chest, 09/20/2018. PET CT, 05/29/2019. TECHNIQUE: CT scan of the chest performed using helical scanning technique with dynamic intravenous contrast injection. Images reviewed with lung, soft tissue and bone windows. Reconstructed coronal and sagittal MPR images reviewed. Additional 3 dimensional post-processing performed to develop Maximal Intensity Projection images (VT P). All images stored on PACS. All CT scanners at this facility use dose modulation, iterative reconstruction, and/or weight based d osing when appropriate to reduce radiation dose to as low as reasonably achievable (ALARA). [facility]: Dose Right [facility]: CareDose [facility]: Dose Right [facility]: Teradose 4D [facility]: Joroto CONTRAST TYPE AND DOSE: 100 mL Omnipaque 350- low osmolar. Contrast bolus optimized for the pulmonary arteries. Not diagnostic for the aorta. RENAL FUNCTION: GFR > 60. RADIATION DOSE: . LIMITATIONS: None. FINDINGS: LUNGS AND PLEURA: The trachea has normal caliber and appearance. New bilateral areas of g round-glass attenuation in the left upper, superior segment left lower, and right hilar regions. Inc reased size of the right perihilar mass now measuring 3.2 x 2.5 cm, most recently 2.5 x 1.1 cm on rec ent PET scan. This was the PET CABG right upper lobe mass. Decreasing size of a cavitary mass in th e left upper lobe now measuring 3.7 x 2.5 cm, previously 3.9 x 3.2 cm. Decreasing cavitary component . There is a 5 mm endobronchial mass in the left main bronchus, new from prior. Left pleural thicke amaris/ effusion adjacent to a cavitary lesion. AORTA AND GREAT VESSELS: No aneurysm. Contrast bolus not optimized for the aorta. HEART: No pericardial effusion. No significant coronary artery calcifications. PULMONARY ARTERIES: There is no pulmonary embolism. The pulmonary arteries are enlarged, with main p ulmonary artery measuring 3.6 cm diameter, right pulmonary artery measuring 2 cm diameter, and left p ulmonary artery measuring 2.1 cm diameter. HILAR AND MEDIASTINAL STRUCTURES: Interval increase in size of multiple right hilar and mediastinal l ymph nodes. For example, a right hilar node now measures 2.6 x 2.3 cm, previously subcentimeter on r ecent PET CT. Increased size of a right pericardiac node now measuring 2.2 x 1.6 cm, previously 1.1 x 1.1 cm. Increased size of a precarinal node now measuring 2.8 x 2 cm, previously 1.3 x 0.7 cm with hypermetabolic activity. Additional right paratracheal lymph nodes have also increased significantl y in size, for example a 2.9 x 2.8 cm lymph node was previously subcentimeter. There is no supraclav icular adenopathy. No axillary adenopathy. The esophagus is normal. HARDWARE: None in the chest. UPPER ABDOMEN: Moderate hepatic steatosis. No adrenal nodule. THYROID AND OTHER SOFT TISSUES: No thyroid nodules. Bilateral gynecomastia. BONES: Destruction of the left lateral 4th and 5th ribs is similar in appearance to previous. No new bone lesions. 3D MIPS: Confirm above findings. OTHER: No other significant finding. IMPRESSION: 1. Interval increase in size of a right perihilar mass with probable endobronchial component, previou sly demonstrated to be hypermetabolic on PET scan, suspicious for new or metastatic disease. This ma y be amenable to endobronchial sampling as clinically indicated. 2. Interval increase in size of mediastinal and right hilar lymphadenopathy, suspicious for metastati c disease. 3. Decreasing size of the left upper lobe cavitary nodule. 4. New areas of consolidation in the left upper and lower lobes and right upper lobe, possibly repres enting infectious/inflammatory process. Radiation pneumonitis could have this appearance. Clinical correlation is recommended. 5. Pulmonary arteries are enlarged which can be seen with pulmonary arterial hypertension. There is no pulmonary embolism. Clinical correlation is recommended. Echocardiogram may provide additional i nformation. 6. Mild hepatic steatosis. COMMENT: Quality ID # [id number]: Final reports with documentation of one or more dose reduction techniques (e.g., Automated exposure control, adjustment of the mA and/or kV according to patient size, use of iterative reconstruction technique) TECHNICAL DOCUMENTATION: JOB ID: [id number] 2010 [employer]- All Rights Reserved Reading location - IP/workstation name: [email or web address]
[2019-09-18 22:57] VITALS: BP 127/87
[2019-09-19 10:52] LABS: PATH REVIEW PATHOLOGIST REVIEWED
== END 2019-09-18 22:57 | disposition other institution (70) ==
LOC: ER 12:53
DX: R55 Syncope and collapse (principal); D50.0 Iron deficiency anemia secondary to blood loss (chronic); C34.11 Malignant neoplasm of upper lobe, right bronchus or lung; F17.200 Nicotine dependence, unspecified, uncomplicated; I10 Essential (primary) hypertension
CPT/HCPCS: 93005; 99284; 96360; 96361; 86900; 86901; 36415; 87040; 36430; 86850; 80307 ×2; 82550; 83605; 85025; 85610; 80053; 84484; 86920; 82803; 70450; 71275; 93010; P9016; J7030

== ENCOUNTER 2019-09-29 07:04 | Emergency (ER) | payer MEDICARE ==
[2019-09-29 07:09] VITALS: BP 133/89
[2019-09-29] MEDS ORDERED: LIDOCAINE 2% URO-JET 5 ML KIT MM ONE (09:01)
--- NOTE | 2019-09-29 09:04 | ER Document Report ---
ED GI/ - General Chief Complaint: Urinary Incontinence Stated Complaint: URINARY INCONTINENCE Time Seen by Provider: 09/29/19 08:17 Primary Care Provider: GRETA CEDILLO PA-C [Primary Care Provider] - Follow up as needed ULICES MCGEE MD [ACTIVE STAFF] - 10/01/19 Information source: Patient Notes: Patient presents complaining of urge incontinence for the past 2 days. Patient denies any dysuria or fever. Patient states he is only been voiding frequent small amounts. Patient denies any abdominal pain or back pain. Patient does have a history of lung cancer and states he received a blood transfusion and a calcium infusion this week. TRAVEL OUTSIDE OF THE [place] IN LAST 30 DAYS: No - HPI Patient complains to provider of: Other - Urinary frequency. No: Abdominal pain, Dysuria, Vomiting Onset: Other - 2 days Timing/Duration: Persistent Quality of pain: No pain Associated symptoms: Urinary frequency, Urinary urgency. denies: Dizzy, Dysuria, Fever Exacerbated by: Denies Relieved by: Denies Similar symptoms previously: No Recently seen / treated by doctor: Yes - Related Data Allergies/Adverse Reactions: Penicillins Allergy (Verified 09/20/18 11:13) Past Medical History - General Information source: Patient - Social History Smoking Status: Current Every Day Smoker Frequency of alcohol use: Occasional Drug Abuse: None Lives with: Alone Family History: Hypertension, Malignancy - Mother with breast cancer Patient has homicidal ideation: No - Past Medical History Cardiac Medical History: Reports: Hx DVT, Hx Hypertension, Hx Peripheral Vascular Disease Denies: Hx Congestive Heart Failure, Hx Heart Attack Pulmonary Medical History: Reports: Hx Pneumonia Neurological Medical History: Denies: Hx Migraine, Hx Seizures, Hx Parkinson's Disease Endocrine Medical History: Denies: Hx Diabetes Mellitus Type 2, Hx Hyper thyroidism, Hx Hypothyroidism Renal/ Medical History: Denies: Hx Benign Prostatic Hyperplasia, Hx End Stage Renal Disease, Hx Kidney Stones, Hx Peritoneal Dialysis Malignancy Medical History: Reports Hx Lung Cancer GI Medical History: Reports: Hx Gastroesophageal Reflux Disease. Denies: Hx Cirrhosis Musculoskeletal Medical History: Denies Hx Arthritis, Denies Hx Multiple Sclerosis Traumatic Medical History: Denies: Hx Gunshot Wound, Hx Traumatic Brain Injury Past Surgical History: Reports: Other - Bronchoscopy x2 - Immunizations Hx Diphtheria, Pertussis, Tetanus Vaccination: Yes Review of Systems - Review of Systems Constitutional: No symptoms reported. denies: Fever, Recent illness EENT: No symptoms reported Cardiovascular: No symptoms reported. denies: Chest pain Respiratory: No symptoms reported. denies: Cough, Short of breath Gastrointestinal: No symptoms reported. denies: Abdominal pain, Nausea, Vomiting Genitourinary: Frequency, Incontinence. denies: Dysuria Male Genitourinary: No symptoms reported Musculoskeletal: No symptoms reported. denies: Back pain Skin: No symptoms reported Hematologic/Lymphatic: No symptoms reported Neurological/Psychological: No symptoms reported Physical Exam - Vital signs Vitals: Temp Pulse Resp BP Pulse Ox 97.5 F 99 16 133/89 H 100 09/29/19 07:08 09/29/19 07:08 09/29/19 07:08 09/29/19 07:08 09/29/19 07:08 - General General appearance: Alert In distress: None Notes: clothing soiled with urine - Respiratory Respiratory status: No respiratory distress Chest status: Nontender Breath sounds: Wheezing Chest palpation: Normal - Cardiovascular Rhythm: Regular Heart sounds: S1 appreciated, S2 appreciated - Abdominal Inspection: Normal Distension: No distension Bowel sounds: Normal Tenderness: Nontender Organomegaly: No organomegaly - Back Back: Normal, Nontender. No: CVA tenderness - Extremities General upper extremity: Normal inspection, Normal strength General lower extremity: Other - Lymphedema - Neurological Neuro grossly intact: Yes Cognition: Normal [place] Coma Scale Eye Opening: Spontaneous [place] Coma Scale Verbal: Oriented Elaine Coma Scale Motor: Obeys Commands [place] Coma Scale Total: 15 - Psychological Associated symptoms: Normal affect, Normal mood - Skin Skin Temperature: Warm Skin Moisture: Dry Skin Color: Normal Course - Re-evaluation Re-evalutation: 09/29/19 11:[address] Hinkle regarding patient presentation and diagnostic evaluation. Recommends adding on liver function test to include an albumin at this time. Does not recommend imaging at this time as patient is not having any abdominal or flank pain symptoms. 09/29/19 13:[address] Swann guarding patient's presentation and electrolyte abnormalities. Discussed plan of care. Dr. Swann advises giving patient a prescription for 20 of KCl daily for 5 days and having patient contact the office on Tuesday to make a follow-up appointment for this week. - Vital Signs Vital signs: Temp Pulse Resp BP Pulse Ox 97.5 F 99 16 133/89 H 100 09/29/19 08:16 09/29/19 07:08 09/29/19 07:08 09/29/19 07:08 09/29/19 07:08 - Laboratory Result Diagrams: 09/29/19 09:45 09/29/19 09:45 Laboratory results interpreted by me: 09/29/19 09/29/19 09/29/19 09:45 09:45 09:45 RBC 2.28 L Hgb 9.4 L Hct 26.2 L MCV 115 H D MCH 41.3 H RDW 29.0 H Plt Count 92 L Seg Neuts % (Manual) 92 H Lymphocytes % (Manual) 4 L Abs Lymphs (Manual) 0.2 L Potassium 2.5 L* Chloride 115 H Carbon Dioxide 18 L Anion Gap 4 L Calcium 6.2 L* Magnesium Total Protein Albumin PTH Intact Urine Protein 100 H Urine Blood LARGE H Urine Nitrite POSITIVE H Ur Leukocyte Esterase LARGE H 09/29/19 09/29/19 09/29/19 09:45 09:45 11:59 RBC Hgb Hct MCV MCH RDW Plt Count Seg Neuts % (Manual) Lymphocytes % (Manual) Abs Lymphs (Manual) Potassium Chloride Carbon Dioxide Anion Gap Calcium Magnesium 1.3 L Total Protein 4.9 L Albumin 2.4 L PTH Intact 269.1 H Urine Protein Urine Blood Urine Nitrite Ur Leukocyte Esterase - EKG Interpretation by Me EKG shows normal: Sinus rhythm Rate: Normal Rhythm: NSR Additional EKG results interpreted by me: 09/29/19 13:51 No acute ischemic changes, prior EKG reviewed, today's EKG actually appears improved as compared to previous. QTc 444, normal T waves Discharge - Discharge Clinical Impression: Hypomagnesemia, Hypocalcemia, Hypokalemia, Elevated parathyroid hormone Anemia Qualifiers: Anemia type: unspecified type Qualified Code(s): D64.9 - Anemia, unspecified UTI (urinary tract infection) Qualifiers: Urinary tract infection type: site unspecified Hematuria presence: with hematuria Qualified Code(s): N39.0 - Urinary tract infection, site not specified Condition: Stable Disposition: HOME, SELF-CARE Instructions: Hypokalemia ([facility]), Rocephin ([facility]), Urinary Anesthetic Agent ([facility]), Urinary Tract Infection ([facility]) Additional Instructions: Return immediately for any new or worsening symptoms Followup with Dr Jayaram this week, call Tuesday to make a follow-up appointment. Urine culture is pending, we will call if you need any different treatment Your parathyroid hormone level was elevated here today. Your primary doctor or oncologist can further evaluate this finding. Use pull-ups at home to prevent urine staying in constant contact with your skin as this can cause skin breakdown Prescriptions: Cefdinir 300 mg PO BID #20 capsule Potassium Chloride [Klor-Con M20] 20 meq PO DAILY #5 tab.er.prt Phenazopyridine HCl [Pyridium 200 mg Tablet] 200 mg PO TID #15 tablet Referrals: GRETA CEDILLO PA-C [Primary Care Provider] - Follow up as needed ULICES MCGEE MD [ACTIVE STAFF] - 10/01/19
[2019-09-29 10:09] LABS: HEMATOCRIT 26.2 % (37.9-51.0); HEMOGLOBIN 9.4 g/dL (13.5-17.0); MEAN CORPUSCULAR HEMOGLOBIN 41.3 pg (27.0-33.4); MEAN CORPUSCULAR HGB CONC 35.9 g/dL (32.0-36.0); RED BLOOD COUNT 2.28 10^6/uL (4.35-5.55); WHITE BLOOD COUNT 4.9 10^3/uL (4.0-10.5)
[2019-09-29 10:14] LABS: APPEARANCE,URINE TURBID; BILIRUBIN,URINE NEGATIVE (NEGATIVE); COLOR,URINE AMBER; GLUCOSE, URINE NEGATIVE (NEGATIVE); KETONES,URINE NEGATIVE (NEGATIVE); LEUKOCYTE ESTERASE,URINE LARGE (NEGATIVE); NITRITE,URINE POSITIVE (NEGATIVE); PROTEIN,URINE 100 mg/dL (NEGATIVE); URINE SPECIFIC GRAVITY 1.013; UROBILINOGEN,URINE NEGATIVE mg/dL (<2.0)
[2019-09-29 10:20] LABS: BLOOD UREA NITROGEN 12 mg/dL (7-20); GLUCOSE 82 mg/dL (75-110)
[2019-09-29 10:26] LABS: CARBON DIOXIDE 18 mmol/L (22-30); CHLORIDE 115 mmol/L (98-107)
[2019-09-29 10:30] LABS: ANION GAP 4 (5-19); CALCIUM 6.2 mg/dL (8.4-10.2); MEAN CORPUSCULAR VOLUME 115 fl (80-97); PLATELET COUNT 92 10^3/uL (150-450); POTASSIUM 2.5 mmol/L (3.6-5.0)
[2019-09-29] MEDS ORDERED: CEFTRIAXONE 1 GM/D5W RTU 1 GM/50 ML RTUPB IV ONE (10:38)
[2019-09-29 10:39] LABS: ABSOLUTE LYMPHOCYTES# (MANUAL) 0.2 10^3/uL (0.5-4.7); ABSOLUTE MONOCYTES # (MANUAL) 0.2 10^3/uL (0.1-1.4); BASOPHILS % (MANUAL) 0 % (0-2); EOSINOPHILS % (MANUAL) 0 % (0-6); LYMPHOCYTES % (MANUAL) 4 % (13-45); MONOCYTES % (MANUAL) 4 % (3-13); SEGMENTED NEUTROPHILS % (MAN) 92 % (42-78); TOTAL CELLS COUNTED 100
[2019-09-29 10:43] LABS: ANISOCYTOSIS 4+; OVALOCYTES 1+; PLATELET COMMENT DECREASED; POIKILOCYTOSIS 1+
[2019-09-29] MEDS ORDERED: CALCIUM GLUC IN NACL, ISO-OSM 1 GM/50 ML RTUPB IV ONE (10:45)
[2019-09-29] MEDS ORDERED: POTASSIUM CHLORIDE 10 MEQ TABLET.ER PO ONE (10:46)
[2019-09-29] MEDS: POTASSI CL 20 MEQ/50 ML RIDER 20 MEQ/50 ML RTUPB IV SCH ×2 (11:14→13:09)
[2019-09-29] MEDS ORDERED: MAGNESIUM SULFATE/D5W 1 GM/100 ML RTUPB IV ONE (11:28)
[2019-09-29 11:40] LABS: ALBUMIN 2.4 g/dL (3.5-5.0); ALKALINE PHOSPHATASE 62 U/L (38-126); ASPARTATE AMINO TRANSFERASE 20 U/L (17-59); BILIRUBIN,TOTAL 0.7 mg/dL (0.2-1.3); TOTAL PROTEIN 4.9 g/dL (6.3-8.2)
[2019-09-29] MEDS ORDERED: PHENAZOPYRIDINE HCL 200 MG TABLET PO ONE (13:27)
--- NOTE | 2019-09-29 20:47 | EKG REPORT ---
SEVERITY:- NORMAL ECG - SINUS RHYTHM : Confirmed by: Harvinder Tilley 29-Sep-2019 20:47:07
== END 2019-09-29 15:16 | disposition home or self-care (01) ==
LOC: ER 07:04
DX: E83.42 Hypomagnesemia (principal); E83.51 Hypocalcemia; E87.6 Hypokalemia; D64.9 Anemia, unspecified; N39.0 Urinary tract infection, site not specified; R32 Unspecified urinary incontinence; R94.6 Abnormal results of thyroid function studies; F17.200 Nicotine dependence, unspecified, uncomplicated; I10 Essential (primary) hypertension; Z88.0 Allergy status to penicillin; Z86.718 Personal history of other venous thrombosis and embolism
CPT/HCPCS: 93005; 99283; 51701; 96375; 96365; 96366; 96367; 96368; 36415; 87086; 83735; 85025; 87088; 80076; 80048; 81001; 87186; 83970; 93010; A9270 ×2; J3475; J3480; J0696; J0610; J3490

== ENCOUNTER 2019-10-04 17:00 | Inpatient (IN) | payer MEDICARE ==
--- NOTE | 2019-10-04 17:56 | ER Document Report ---
ED Dizziness/Weakness - General Chief Complaint: General Weakness Stated Complaint: GENERAL WEAKNESS Time Seen by Provider: 10/04/19 17:46 Primary Care Provider: GRETA CEDILLO PA-C [Primary Care Provider] - Follow up as needed Information source: Patient TRAVEL OUTSIDE OF THE [place] IN LAST 30 DAYS: No - HPI Patient complains to provider of: Weakness - This a 54-year-old male presents to the emergency room today stating that he has had extreme fatigue and weakness progressive over approximately the last week he was seen here last Tuesday diagnosed with a UTI put on antibiotics and Pyridium he states that that has gotten better although he has not retained complete control of his bladder he has no fever no nausea no vomiting no lower back pain at this point of time. - Related Data Allergies/Adverse Reactions: Penicillins Allergy (Verified 09/20/18 11:13) Home Medications: lisinopril, calcium, xeralto, potassium, cefdinir, pyridium Past Medical History - General Information source: Patient - Social History Smoking Status: Current Every Day Smoker Frequency of alcohol use: Occasional Family History: Hypertension, Malignancy - Mother with breast cancer Patient has homicidal ideation: No - Past Medical History Cardiac Medical History: Reports: Hx DVT, Hx Hypertension, Hx Peripheral Vascular Disease Denies: Hx Congestive Heart Failure, Hx Heart Attack Pulmonary Medical History: Reports: Hx Pneumonia Denies: Hx Asthma, Hx Bronchitis, Hx COPD, Hx Tuberculosis Neurological Medical History: Denies: Hx Migraine, Hx Seizures, Hx Parkinson's Disease Endocrine Medical History: Denies: Hx Diabetes Mellitus Type 2, Hx Hyperthyroidism, Hx Hypothyroidism Renal/ Medical History: Denies: Hx Benign Prostatic Hyperplasia, Hx End Stage Renal Disease, Hx Kidney Stones, Hx Peritoneal Dialysis Malignancy Medical History: Reports Hx Lung Cancer GI Medical History: Reports: Hx Gastroesophageal Reflux Disease. Denies: Hx Cirrhosis Musculoskeletal Medical History: Denies Hx Arthritis, Denies Hx Multiple Sclerosis Psychiatric Medical History: Denies: Hx Bipolar Disorder, Hx Depression, Hx Schizophrenia Traumatic Medical History: Denies: Hx Gunshot Wound, Hx Traumatic Brain Injury Past Surgical History: Reports: Other - Bronchoscopy x2 - Immunizations Hx Diphtheria, Pertussis, Tetanus Vaccination: Yes Review of Systems - Review of Systems Constitutional: No symptoms reported EENT: No symptoms reported Cardiovascular: No symptoms reported Respiratory: No symptoms reported Gastrointestinal: No symptoms reported, Poor fluid intake Genitourinary: No symptoms reported Male Genitourinary: No symptoms reported Musculoskeletal: No symptoms reported Skin: No symptoms reported Hematologic/Lymphatic: No symptoms reported Neurological/Psychological: No symptoms reported Physical Exam - Vital signs Vitals: Temp 98 F 10/04/19 17:09 Interpretation: Normal - General General appearance: Appears well, Alert - HEENT Head: Normocephalic, Atraumatic Eyes: Normal Pupils: PERRL - Respiratory Respiratory status: No respiratory distress Chest status: Nontender Breath sounds: Normal Chest palpation: Normal - Cardiovascular Rhythm: Regular Heart sounds: Normal auscultation Murmur: No - Abdominal Inspection: Normal Distension: No distension Bowel sounds: Normal Tenderness: Nontender Organomegaly: No organomegaly - Back Back: Normal, Nontender - Extremities General upper extremity: Normal inspection, Nontender, Normal color, Normal ROM, Normal temperature General lower extremity: Normal inspection, Nontender, Normal color, Normal ROM, Normal temperature, Normal weight bearing. No: Abner's sign - Neurological Neuro grossly intact: Yes Cognition: Normal Orientation: AAOx4 [place] Coma Scale Eye Opening: Spontaneous [place] Coma Scale Verbal: Oriented Elaine Coma Scale Motor: Obeys Commands Elaine Coma Scale Total: 15 Speech: Normal Motor strength normal: LUE, RUE, LLE, RLE Sensory: Normal - Psychological Associated symptoms: Normal affect, Normal mood - Skin Skin Temperature: Warm Skin Moisture: Dry Skin Color: Normal Course - Re-evaluation Re-evalutation: 10/04/19 19:20 Patient's most current labs were assessed patient does not fact have a carcinoma in the lung and is currently being treated by Dr. Piter toth. Dr. Zhu of hospitalist services was called will admit the patient he has a little bit of hydronephrosis on the left 4 mm stone pyelonephritis he apparently just had a culture done and Dr. Zhu will be putting in an order for meropenem as he is allergic to to penicillin I was about to put in [facility] when we had this discussion. Patient is getting [address] Zhu will admit and put him on a telemetry for please - Vital Signs Vital signs: Temp Pulse Resp BP Pulse Ox 98 F 24 H 109/74 96 10/04/19 17:09 10/04/19 19:00 10/04/19 18:22 10/04/19 19:00 - Laboratory Result Diagrams: 10/04/19 17:45 10/04/19 17:45 Laboratory results interpreted by me: 10/04/19 10/04/19 17:45 17:45 WBC 3.8 L RBC 2.15 L Hgb 8.6 L Hct 24.3 L MCV 113 H MCH 40.1 H RDW 27.6 H Plt Count 89 L Seg Neuts % (Manual) 94 H Lymphocytes % (Manual) 2 L Abs Lymphs (Manual) 0.1 L Sodium 134.6 L Potassium 3.2 L Carbon Dioxide 21 L BUN 29 H Creatinine 1.39 H Est GFR (MDRD) Non-Af 53 L Glucose 117 H Calcium 7.9 L Creatine Kinase 26 L Albumin 3.2 L Labs- All tests 24 hr 10/04/19 10/04/19 10/04/19 17:45 17:45 17:45 WBC 3.8 L RBC 2.15 L Hgb 8.6 L Hct 24.3 L MCV 113 H MCH 40.1 H MCHC 35.6 RDW 27.6 H Plt Count 89 L Lymph % (Auto) Not Reportable [place] % (Auto) Not Reportable Eos % (Auto) Not Reportable Baso % (Auto) Not Reportable Absolute Neuts (auto) Not Reportable Absolute Lymphs (auto) Not Reportable Absolute Monos (auto) Not Reportable Absolute Eos (auto) Not Reportable Absolute Basos (auto) Not Reportable Total Counted 100 Seg Neutrophils % Not Reportable Seg Neuts % (Manual) 94 H Lymphocytes % (Manual) 2 L Monocytes % (Manual) 4 Eosinophils % (Manual) 0 Basophils % (Manual) 0 Abs Neuts (Manual) 3.6 Abs Lymphs (Manual) 0.1 L Abs Monocytes (Manual) 0.2 Absolute Eos (Manual) 0.0 Abs Basophils (Manual) 0.0 Platelet Comment DECREASED Anisocytosis 3+ Macrocytosis 3+ Sodium 134.6 L Potassium 3.2 L Chloride 107 Carbon Dioxide 21 L Anion Gap 7 BUN 29 H Creatinine 1.39 H Est GFR ( Amer) > 60 Est GFR (MDRD) Non-Af 53 L Glucose 117 H Lactic Acid Calcium 7.9 L Total Bilirubin 0.9 Direct Bilirubin 0.0 Neonat Total Bilirubin Not Reportable Neonat Direct Bilirubin Not Reportable Neonat Indirect Bili Not Reportable AST 48 ALT 17 Alkaline Phosphatase 84 Creatine Kinase 26 L CK-MB (CK-2) 0.26 Troponin I 0.057 Total Protein 6.5 Albumin 3.2 L 10/04/19 18:22 WBC RBC Hgb Hct MCV MCH MCHC RDW Plt Count Lymph % (Auto) [place] % (Auto) Eos % (Auto) Baso % (Auto) Absolute Neuts (auto) Absolute Lymphs (auto) Absolute Monos (auto) Absolute Eos (auto) Absolute Basos (auto) Total Counted Seg Neutrophils % Seg Neuts % (Manual) Lymphocytes % (Manual) Monocytes % (Manual) Eosinophils % (Manual) Basophils % (Manual) Abs Neuts (Manual) Abs Lymphs (Manual) Abs Monocytes (Manual) Absolute Eos (Manual) Abs Basophils (Manual) Platelet Comment Anisocytosis Macrocytosis Sodium Potassium Chloride Carbon Dioxide Anion Gap BUN Creatinine Est GFR ( Amer) Est GFR (MDRD) Non-Af Glucose Lactic Acid 1.0 Calcium Total Bilirubin Direct Bilirubin Neonat Total Bilirubin Neonat Direct Bilirubin Neonat Indirect Bili AST ALT Alkaline Phosphatase Creatine Kinase CK-MB (CK-2) Troponin I Total Protein Albumin - Diagnostic Test Radiology results interpreted by me: 10/04/19 19:23 Abdomen/Pelvis CT 10/04/19 17:53 IMPRESSION: 1. Mild left hydroureter secondary to a 4 mm calculus in the d istal left ureter as described. 2. Multiple intrarenal calculi on each side. 3. Cholelithiasis. Discharge - Discharge Clinical Impression: Pyelonephritis due to Escherichia coli, General weakness Carcinoma, lung Qualifiers: Laterality: left Qualified Code(s): C34.92 - Malignant neoplasm of unspecified part of left bronchus or lung Disposition: ADMITTED INPATIENT Admitting Provider: Marko (Hospitalist) Unit Admitted: Telemetry Referrals: GRETA CEDILLO PA-C [Primary Care Provider] - Follow up as needed
[2019-10-04 18:13] LABS: HEMATOCRIT 24.3 % (37.9-51.0); HEMOGLOBIN 8.6 g/dL (13.5-17.0); MEAN CORPUSCULAR HEMOGLOBIN 40.1 pg (27.0-33.4); MEAN CORPUSCULAR HGB CONC 35.6 g/dL (32.0-36.0); MEAN CORPUSCULAR VOLUME 113 fl (80-97); RED BLOOD COUNT 2.15 10^6/uL (4.35-5.55); RED CELL DISTRIBUTION WIDTH 27.6 % (11.5-14.0); WHITE BLOOD COUNT 3.8 10^3/uL (4.0-10.5)
[2019-10-04 18:22] LABS: ALBUMIN 3.2 g/dL (3.5-5.0); ALKALINE PHOSPHATASE 84 U/L (38-126); ANION GAP 7 (5-19); ASPARTATE AMINO TRANSFERASE 48 U/L (17-59); BILIRUBIN,TOTAL 0.9 mg/dL (0.2-1.3); BLOOD UREA NITROGEN 29 mg/dL (7-20); CALCIUM 7.9 mg/dL (8.4-10.2); CARBON DIOXIDE 21 mmol/L (22-30); CHLORIDE 107 mmol/L (98-107); CREATINE KINASE 26 U/L (55-170); GLUCOSE 117 mg/dL (75-110); POTASSIUM 3.2 mmol/L (3.6-5.0); TOTAL PROTEIN 6.5 g/dL (6.3-8.2)
[2019-10-04 18:25] LABS: PLATELET COUNT 89 10^3/uL (150-450)
[2019-10-04 18:28] LABS: ABSOLUTE LYMPHOCYTES# (MANUAL) 0.1 10^3/uL (0.5-4.7); ABSOLUTE MONOCYTES # (MANUAL) 0.2 10^3/uL (0.1-1.4); BASOPHILS % (MANUAL) 0 % (0-2); EOSINOPHILS % (MANUAL) 0 % (0-6); LYMPHOCYTES % (MANUAL) 2 % (13-45); MONOCYTES % (MANUAL) 4 % (3-13); SEGMENTED NEUTROPHILS % (MAN) 94 % (42-78); TOTAL CELLS COUNTED 100
[2019-10-04 18:29] LABS: PLATELET COMMENT DECREASED
[2019-10-04 18:30] LABS: ANISOCYTOSIS 3+
[2019-10-04 18:33] LABS: CREATINE KINASE MB 0.26 ng/mL (<4.55)
[2019-10-04 18:36] LABS: TROPONIN I 0.057 ng/mL
--- NOTE | 2019-10-04 19:11 | RADIOLOGY REPORT (SQ) ---
EXAM DESCRIPTION: CT ABD/PELVIS NO ORAL OR IV IMAGES COMPLETED DATE/TIME: 10/04/2019 6:35 pm REASON FOR STUDY: pain COMPARISON: None. TECHNIQUE: CT scan of the abdomen and pelvis performed without intravenous or oral contrast. Images reviewed with lung, soft tissue, and bone windows. Reconstructed coronal and sagittal MPR images revi ewed. All images stored on PACS. All CT scanners at this facility use dose modulation, iterative reconstruction, and/or weight based d osing when appropriate to reduce radiation dose to as low as reasonably achievable (ALARA). [facility]: Dose Right [facility]: CareDose [facility]: Dose Right [facility]: Teradose 4D [facility]: Smart [employer] RADIATION DOSE: CT Rad equipment meets quality standard of care and radiation dose reduction techniq ues were employed. CTDIvol: 3.8 mGy. DLP: 207 mGy-cm.mGy. LIMITATIONS: None. FINDINGS: LOWER CHEST: No significant findings. No nodules or infiltrates. NON-CONTRASTED LIVER, SPLEEN, ADRENALS: Evaluation limited by lack of IV contrast. No identified sign ificant masses. PANCREAS: No masses. No peripancreatic inflammatory changes. GALLBLADDER: Multiple small gallstones. RIGHT KIDNEY AND URETER: No suspicious masses. Assessment limited by lack of IV contrast. Nonobstru cting intrarenal calculi. No hydronephrosis or hydroureter. LEFT KIDNEY AND URETER: No suspicious masses. Assessment limited by lack of IV contrast. Nonobstruc ting intrarenal calculi. No hydronephrosis, but the ureter is prominent and there appears to be a 4 mm calculus in the distal left ureter on image 74 series 2. AORTA AND RETROPERITONEUM: No aneurysm. No retroperitoneal masses or adenopathy. BOWEL AND PERITONEAL CAVITY: No obvious masses or inflammatory changes. No free fluid. APPENDIX: Not identified. PELVIS, BLADDER, AND ABDOMINAL WALL:No abnormal masses. No free fluid. Bladder normal. BONES: No significant findings. OTHER: No other significant finding. IMPRESSION: 1. Mild left hydroureter secondary to a 4 mm calculus in the distal left ureter as desc ribed. 2. Multiple intrarenal calculi on each side. 3. Cholelithiasis. COMMENT: Quality ID # [id number]: Final reports with documentation of one or more dose reduction techniques (e.g., Automated exposure control, adjustment of the mA and/or kV according to patient size, use of iterative reconstruction technique) TECHNICAL DOCUMENTATION: JOB ID: [id number] 2010 [employer] [facility]- All Rights Reserved Reading location - IP/workstation name: [email or web address]
[2019-10-04] MEDS ORDERED: NORMAL SALINE 1000 ML 2,700 ML IV PRN (19:12)
[2019-10-04] MEDS ORDERED: MAG HYDROX/AL HYDROX/SIMETH SUSP 30 ML UDCUP PO PRN (19:20)
[2019-10-04] MEDS ORDERED: ACETAMINOPHEN 325 MG TABLET PO PRN (19:20)
[2019-10-04] MEDS ORDERED: MAGNESIUM HYDROXIDE SUSP 30 ML UDCUP PO PRN (19:20)
[2019-10-04] MEDS ORDERED: NORMAL SALINE 1000 ML 1,000 ML IV PRN (19:30)
[2019-10-04 19:43] LABS: PHOSPHORUS 1.2 mg/dL (2.5-4.5)
[2019-10-04 19:44] LABS: APPEARANCE,URINE CLEAR; BILIRUBIN,URINE NEGATIVE (NEGATIVE); COLOR,URINE AMBER; GLUCOSE, URINE NEGATIVE (NEGATIVE); KETONES,URINE NEGATIVE (NEGATIVE); LEUKOCYTE ESTERASE,URINE NEGATIVE (NEGATIVE); NITRITE,URINE POSITIVE (NEGATIVE); PROTEIN,URINE 30 mg/dL (NEGATIVE); URINE SPECIFIC GRAVITY 1.011
[2019-10-04] MEDS: IPRATROPIUM/ALBUTEROL 0.5-2.5 MG/3 ML AMPUL NEB SCH (20:13)
[2019-10-04] MEDS: CEFTRIAXONE 1 GM/D5W RTU 1 GM/50 ML RTUPB IV SCH (20:18)
[2019-10-04] MEDS ORDERED: MAGNESIUM SULFATE 4 GM/100 ML RTUPB IV ONE (20:34)
[2019-10-04 22:11] LABS: IRON(TIBC) 64.5 ug/dL (49-181)
[2019-10-04] MEDS: HEPARIN SOD (PORCINE) 5,000 UNIT/ML 1 ML VIAL SUBCUT SCH (22:16)
[2019-10-04 23:18] LABS: FOLATE 1.62 ng/mL (>2.76)
[2019-10-04] MEDS: NORMAL SALINE 1000 ML 1,000 ML IV PRN (23:35)
[2019-10-05] MEDS ORDERED: PHOSPHORUS #1 250 MG TABLET ONE (00:15)
[2019-10-05] MEDS: PHOSPHORUS #1 250 MG TABLET PO SCH ×4 (00:31→15:32)
[2019-10-05] MEDS: HEPARIN SOD (PORCINE) 5,000 UNIT/ML 1 ML VIAL SUBCUT SCH ×3 (05:03→21:00)
--- NOTE | 2019-10-05 05:09 | PDOC H&P ---
History of Present Illness Admission Date/PCP: 10/04/19 19:42 GRETA CEDILLO PA-C Patient complains of: Generalized weakness History of Present Illness: Mikael WHEATLEY II is a 54 year old male with a past medical history of COPD, lung cancer undergoing chemotherapy with Dr. Chavez, anemia, lower extremity DVT, alcohol and tobacco dependence. He presents with generalized weakness. In the emergency department he is found to have pancytopenia, hypomagnesemia, hypophosphatemia, and positive urine culture for E. coli resulting from [address] reveals mild left-sided hydro-nephrosis with a 4 mm stone and pyelonephritis without abscess. He started on Rocephin given high sensitivity to cultured E. coli, IV fluid challenge and referred to the hospitalist for admission. Patient admits to poor appetite, living alone without access to food. Past Medical History Cardiac Medical History: Reports: DVT, Hypertension, Peripheral Vascular Disease Denies: Congestive Heart Failure, Myocardial Infarction Pulmonary Medical History: Reports: Pneumonia Denies: Asthma, Bronchitis, Chronic Obstructive Pulmonary Disease (COPD), Tuberculosis Neurological Medical History: Denies: Migraine, Seizures Endocrine Medical History: Denies: Diabetes Mellitus Type 2, Hyperthyroidism, Hypothyroidism Renal/ Medical History: Denies: End Stage Renal Disease Malignancy Medical History: Reports: Lung Cancer GI Medical History: Reports: Gastroesophageal Reflux Disease Denies: Cirrhosis Musculoskeltal Medical History: Denies: Arthritis Psychiatric Medical History: Denies: Bipolar Disorder, Depression Traumatic Medical History: Denies: Gunshot Wound, Traumatic Brain Injury Hematology: Reports: Anemia Denies: Bleeding Tendencies Past Surgical History Past Surgical History: Reports: Other - Bronchoscopy x2 Social History Information Source: Patient Smoking Status: Current Every Day Smoker Cigarettes Packs Per Day: 1 Frequency of Alcohol Use: Heavy Hx Recreational Drug Use: No Drugs: None Hx Prescription Drug Abuse: No - Advance Directive Resuscitation Status: Full Code Family History Family History: Hypertension, Malignancy - Mother with breast cancer Parental Family History Reviewed: Yes Children Family History Reviewed: Yes Sibling(s) Family History Reviewed.: Yes Medication/Allergy Home Medications: Cefdinir 300 mg PO BID #20 capsule 09/29/19 Phenazopyridine HCl [Pyridium 200 mg Tablet] 200 mg PO TID #15 tablet 09/29/19 Allergies/Adverse Reactions: Penicillins Allergy (Verified 09/20/18 11:13) Review of Systems Constitutional: PRESENT: as per HPI, anorexia, fatigue, weakness, weight loss. ABSENT: chills, fever(s), headache(s), weight gain Eyes: ABSENT: visual disturbances Ears: ABSENT: hearing changes Cardiovascular: ABSENT: chest pain, dyspnea on exertion, edema, orthropnea, palpitations Respiratory: ABSENT: cough, hemoptysis Gastrointestinal: ABSENT: abdominal pain, constipation, diarrhea, hematemesis, h ematochezia, nausea, vomiting Genitourinary: ABSENT: dysuria, hematuria Musculoskeletal: ABSENT: joint swelling Integumentary: ABSENT: rash, wounds Neurological: ABSENT: abnormal gait, abnormal speech, confusion, dizziness, focal weakness, syncope Psychiatric: ABSENT: anxiety, depression, homidical ideation, suicidal ideation Endocrine: ABSENT: cold intolerance, heat intolerance, polydipsia, polyuria Hematologic/Lymphatic: ABSENT: easy bleeding, easy bruising Physical Exam Vital Signs: Temp Pulse Resp BP Pulse Ox 98.2 F 86 16 121/67 95 10/04/19 23:20 10/05/19 02:00 10/04/19 23:20 10/04/19 23:20 10/04/19 23:20 Intake & Output 10/03/19 10/04/19 10/05/19 11:59 11:59 11:59 Intake Total 150 Balance 150 Weight 61.5 kg General appearance: PRESENT: cooperative, disheveled, mild distress, thin, well- developed, other - Chronically ill appearing with temporal wasting and global muscular atrophy. ABSENT: well-nourished Head exam: PRESENT: atraumatic, normocephalic Eye exam: PRESENT: conjunctiva pale, EOMI, PERRLA. ABSENT: scleral icterus Ear exam: PRESENT: normal external ear exam Mouth exam: PRESENT: moist, tongue midline Neck exam: ABSENT: carotid bruit, JVD, lymphadenopathy, thyromegaly Respiratory exam: PRESENT: crackles, prolonged expiratory phas. ABSENT: rales, rhonchi, symmetrical, wheezes Cardiovascular exam: PRESENT: RRR. ABSENT: diastolic murmur, rubs, systolic murmur Pulses: PRESENT: normal dorsalis pedis pul Vascular exam: PRESENT: normal capillary refill GI/Abdominal exam: PRESENT: normal bowel sounds, soft. ABSENT: distended, guarding, mass, organolmegaly, rebound, tenderness Rectal exam: PRESENT: deferred Extremities exam: PRESENT: full ROM. ABSENT: calf tenderness, clubbing, pedal edema Musculoskeletal exam: ABSENT: tenderness Neurological exam: PRESENT: alert, awake, oriented to person, oriented to place, oriented to time, oriented to situation, CN II-XII grossly intact. ABSENT: motor sensory deficit Psychiatric exam: PRESENT: appropriate affect, normal mood. ABSENT: homicidal ideation, suicidal ideation Skin exam: PRESENT: dry, intact, warm. ABSENT: cyanosis, rash Results Laboratory Results: 10/04/19 17:45 10/04/19 17:45 10/04/19 10/04/19 10/04/19 17:45 17:45 17:45 WBC 3.8 L RBC 2.15 L Hgb 8.6 L Hct 24.3 L MCV 113 H MCH 40.1 H MCHC 35.6 RDW 27.6 H Plt Count 89 L Seg Neutrophils % Not Reportable Retic Count (auto) Sodium 134.6 L Potassium 3.2 L Chloride 107 Carbon Dioxide 21 L Anion Gap 7 BUN 29 H Creatinine 1.39 H Est GFR ( Amer) > 60 Glucose 117 H Lactic Acid Calcium 7.9 L Phosphorus 1.2 L Magnesium 0.9 L* Iron TIBC % Saturation Transferrin Ferritin Total Bilirubin 0.9 AST 48 Alkaline Phosphatase 84 Total Protein 6.5 Albumin 3.2 L Vitamin B12 Folate Urine Color Urine Appearance Urine pH Ur Specific [place] Urine Protein Urine Glucose (UA) Urine Ketones Urine Blood Urine Nitrite Ur Leukocyte Esterase Urine WBC (Auto) Urine RBC (Auto) 10/04/19 10/04/19 10/04/19 18:22 19:10 21:43 WBC RBC Hgb Hct MCV MCH MCHC RDW Plt Count Seg Neutrophils % Retic Count (auto) Sodium Potassium Chloride Carbon Dioxide Anion Gap BUN Creatinine Est GFR ( Amer) Glucose Lactic Acid 1.0 0.7 Calcium Phosphorus Magnesium Iron TIBC % Saturation Transferrin Ferritin Total Bilirubin AST Alkaline Phosphatase Total Protein Albumin Vitamin B12 Folate Urine Color JINA Urine Appearance CLEAR Urine pH 5.0 Ur Specific [place] 1.011 Urine Protein 30 H Urine Glucose (UA) NEGATIVE Urine Ketones NEGATIVE Urine Blood SMALL H Urine Nitrite POSITIVE H Ur Leukocyte Esterase NEGATIVE Urine WBC (Auto) 7 Urine RBC (Auto) 2 10/04/19 10/04/19 10/04/19 21:43 21:43 21:43 WBC RBC Hgb Hct MCV MCH MCHC RDW Plt Count Seg Neutrophils % Retic Count (auto) 0.50 L Sodium Potassium Chloride Carbon Dioxide Anion Gap BUN Creatinine Est GFR ( Amer) Glucose Lactic Acid Calcium Phosphorus Magnesium Iron 64.5 TIBC 204 L % Saturation 32 Transferrin 141.84 L Ferritin 599.00 H Total Bilirubin AST Alkaline Phosphatase Total Protein Albumin Vitamin B12 486.0 Folate 1.62 L Urine Color Urine Appearance Urine pH Ur Specific [place] Urine Protein Urine Glucose (UA) Urine Ketones Urine Blood Urine Nitrite Ur Leukocyte Esterase Urine WBC (Auto) Urine RBC (Auto) 10/05/19 00:30 WBC RBC Hgb Hct MCV MCH MCHC RDW Plt Count Seg Neutrophils % Retic Count (auto) Sodium Potassium Chloride Carbon Dioxide Anion Gap BUN Creatinine Est GFR ( Amer) Glucose Lactic Acid 0.9 Calcium Phosphorus Magnesium Iron TIBC % Saturation Transferrin Ferritin Total Bilirubin AST Alkaline Phosphatase Total Protein Albumin Vitamin B12 Folate Urine Color Urine Appearance Urine pH Ur Specific [place] Urine Protein Urine Glucose (UA) Urine Ketones Urine Blood Urine Nitrite Ur Leukocyte Esterase Urine WBC (Auto) Urine RBC (Auto) 10/04/19 10/04/19 17:45 17:45 Creatine Kinase 26 L CK-MB (CK-2) 0.26 Troponin I 0.057 Impressions: Abdomen/Pelvis CT 10/04/19 17:53 IMPRESSION: 1. Mild left hydroureter secondary to a 4 mm calculus in the distal left ureter as described. 2. Multiple intrarenal calculi on each side. 3. Cholelithiasis. Assessment and Plan - Diagnosis (1) Pancytopenia Is this a current diagnosis for this admission?: Yes Plan: Likely secondary to malignancy and its treatment, defer to hematology, oncology, follow-up CBC (2) Hypomagnesemia Is this a current diagnosis for this admission?: Yes Plan: Secondary to malnutrition, IV repletion and reevaluation. (3) Hypophosphatemia Is this a current diagnosis for this admission?: Yes Plan: Secondary to malnutrition, K-Phos, follow-up phosphorus level (4) Carcinoma, lung Qualifiers: Laterality: left Qualified Code(s): C34.92 - Malignant neoplasm of unspecified part of left bronchus or lung Is this a current diagnosis for this admission?: Yes Plan: Defer to oncology. (5) Pyelonephritis due to Escherichia coli Is this a current diagnosis for this admission?: Yes Plan: Complicated by nephrolithiasis, mild hydronephrosis, IV fluid challenge in an attempt to dislodge 4 mm stone, follow-up CT stone study if without significant improvement in 48 hours. Rocephin initiated for E. coli sensitivity on urine culture of September 29, 2019 follow-up CBC and urine culture (6) Malnutrition Is this a current diagnosis for this admission?: Yes Plan: Complicated by malignancy and poor access to food, discharge planning consulted. - Time Time Spent with patient: 25-34 minutes - Inpatient Certification Medical Necessity: Need Close Monitoring Due to Risk of Patient Decompensation
[2019-10-05 06:18] LABS: HEMATOCRIT 22.7 % (37.9-51.0); MEAN CORPUSCULAR HEMOGLOBIN 39.9 pg (27.0-33.4); MEAN CORPUSCULAR HGB CONC 35.2 g/dL (32.0-36.0); RED CELL DISTRIBUTION WIDTH 28.2 % (11.5-14.0); WHITE BLOOD COUNT 3.5 10^3/uL (4.0-10.5)
[2019-10-05 06:37] LABS: ANION GAP 6 (5-19); BLOOD UREA NITROGEN 25 mg/dL (7-20); CALCIUM 7.6 mg/dL (8.4-10.2); CARBON DIOXIDE 20 mmol/L (22-30); CHLORIDE 109 mmol/L (98-107); GLUCOSE 100 mg/dL (75-110)
[2019-10-05 06:46] LABS: PLATELET COUNT 82 10^3/uL (150-450)
[2019-10-05 06:48] LABS: MEAN CORPUSCULAR VOLUME 113 fl (80-97)
[2019-10-05 06:55] LABS: ABSOLUTE LYMPHOCYTES# (MANUAL) 0.3 10^3/uL (0.5-4.7); BASOPHILS % (MANUAL) 1 % (0-2); EOSINOPHILS % (MANUAL) 1 % (0-6); LYMPHOCYTES % (MANUAL) 9 % (13-45); MONOCYTES % (MANUAL) 1 % (3-13); SEGMENTED NEUTROPHILS % (MAN) 88 % (42-78); TOTAL CELLS COUNTED 100
[2019-10-05 06:57] LABS: TOXIC VACUOLATION PRESENT
[2019-10-05] MEDS ORDERED: POTASSIUM CHLORIDE 10 MEQ TABLET.ER PO ONE (07:00)
[2019-10-05 07:02] LABS: ANISOCYTOSIS 4+; PLATELET COMMENT DECREASED
[2019-10-05 07:03] LABS: TOXIC GRANULATION SLIGHT
[2019-10-05] MEDS: IPRATROPIUM/ALBUTEROL 0.5-2.5 MG/3 ML AMPUL NEB SCH ×2 (08:41→19:45)
[2019-10-05] MEDS: MEGESTROL ACETATE 20 MG TABLET PO SCH (10:27)
[2019-10-05] MEDS: DOCUSATE SODIUM 100 MG CAPSULE PO SCH ×2 (10:30→17:21)
--- NOTE | 2019-10-05 11:10 | PDOC PROGRESS REPORT ---
Subjective Progress Note for:: 10/05/19 Subjective:: Patient appears to be comfortable. He did 80s breakfast which he was surprised that because his appetite has been extremely poor. He still feels very very weak. Reason For Visit: PYELONEPHRITIS Physical Exam Vital Signs: Temp Pulse Resp BP Pulse Ox 98.4 F 98 21 H 146/73 H 97 10/05/19 07:23 10/05/19 07:23 10/05/19 07:23 10/05/19 07:23 10/05/19 07:23 Intake & Output 10/04/19 10/05/19 10/06/19 06:59 06:59 06:59 Intake Total 150 Balance 150 Weight 61.5 kg General appearance: PRESENT: no acute distress, cooperative, thin - And frail- appearing, well-developed Head exam: PRESENT: atraumatic, normocephalic Mouth exam: PRESENT: moist, tongue midline Neck exam: ABSENT: carotid bruit, JVD, tracheostomy Respiratory exam: PRESENT: clear to auscultation joe, symmetrical, unlabored. ABSENT: rales, rhonchi, tachypnea, wheezes Cardiovascular exam: PRESENT: RRR, +S1, +S2, systolic murmur - For over 6. ABSENT: irregular rhythm GI/Abdominal exam: PRESENT: normal bowel sounds, soft. ABSENT: distended, guarding, tenderness Rectal exam: PRESENT: deferred Gentrourinary exam: ABSENT: indwelling catheter Extremities exam: ABSENT: pedal edema Neurological exam: PRESENT: alert, awake, oriented to person, oriented to place, oriented to time, oriented to situation, CN II-XII grossly intact. ABSENT: altered Psychiatric exam: ABSENT: agitated, anxious Focused psych exam: ABSENT: delusional, paranoid, restlessness Results Laboratory Results: 10/05/19 06:06 10/05/19 06:06 10/04/19 10/04/19 10/04/19 17:45 17:45 17:45 WBC 3.8 L RBC 2.15 L Hgb 8.6 L Hct 24.3 L MCV 113 H MCH 40.1 H MCHC 35.6 RDW 27.6 H Plt Count 89 L Seg Neutrophils % Not Reportable Retic Count (auto) Sodium 134.6 L Potassium 3.2 L Chloride 107 Carbon Dioxide 21 L Anion Gap 7 BUN 29 H Creatinine 1.39 H Est GFR ( Amer) > 60 Glucose 117 H Lactic Acid Calcium 7.9 L Phosphorus 1.2 L Magnesium 0.9 L* Iron TIBC % Saturation Transferrin Ferritin Total Bilirubin 0.9 AST 48 Alkaline Phosphatase 84 Total Protein 6.5 Albumin 3.2 L Vitamin B12 Folate Urine Color Urine Appearance Urine pH Ur Specific Ames Urine Protein Urine Glucose (UA) Urine Ketones Urine Blood Urine Nitrite Ur Leukocyte Esterase Urine WBC (Auto) Urine RBC (Auto) 10/04/19 10/04/19 10/04/19 18:22 19:10 21:43 WBC RBC Hgb Hct MCV MCH MCHC RDW Plt Count Seg Neutrophils % Retic Count (auto) Sodium Potassium Chloride Carbon Dioxide Anion Gap BUN Creatinine Est GFR ( Amer) Glucose Lactic Acid 1.0 0.7 Calcium Phosphorus Magnesium Iron TIBC % Saturation Transferrin Ferritin Total Bilirubin AST Alkaline Phosphatase Total Protein Albumin Vitamin B12 Folate Urine Color JINA Urine Appearance CLEAR Urine pH 5.0 Ur Specific Ames 1.011 Urine Protein 30 H Urine Glucose (UA) NEGATIVE Urine Ketones NEGATIVE Urine Blood SMALL H Urine Nitrite POSITIVE H Ur Leukocyte Esterase NEGATIVE Urine WBC (Auto) 7 Urine RBC (Auto) 2 10/04/19 10/04/19 10/04/19 21:43 21:43 21:43 WBC RBC Hgb Hct MCV MCH MCHC RDW Plt Count Seg Neutrophils % Retic Count (auto) 0.50 L Sodium Potassium Chloride Carbon Dioxide Anion Gap BUN Creatinine Est GFR ( Amer) Glucose Lactic Acid Calcium Phosphorus Magnesium Iron 64.5 TIBC 204 L % Saturation 32 Transferrin 141.84 L Ferritin 599.00 H Total Bilirubin AST Alkaline Phosphatase Total Protein Albumin Vitamin B12 486.0 Folate 1.62 L Urine Color Urine Appearance Urine pH Ur Specific Ames Urine Protein Urine Glucose (UA) Urine Ketones Urine Blood Urine Nitrite Ur Leukocyte Esterase Urine WBC (Auto) Urine RBC (Auto) 10/05/19 10/05/19 10/05/19 00:30 06:06 06:06 WBC 3.5 L RBC 2.00 L Hgb 8.0 L Hct 22.7 L MCV 113 H MCH 39.9 H MCHC 35.2 RDW 28.2 H Plt Count 82 L Seg Neutrophils % Not Reportable Retic Count (auto) Sodium 135.0 L Potassium 3.0 L* Chloride 109 H Carbon Dioxide 20 L Anion Gap 6 BUN 25 H Creatinine 1.29 H Est GFR ( Amer) > 60 Glucose 100 Lactic Acid 0.9 Calcium 7.6 L Phosphorus Magnesium Iron TIBC % Saturation Transferrin Ferritin Total Bilirubin AST Alkaline Phosphatase Total Protein Albumin Vitamin B12 Folate Urine Color Urine Appearance Urine pH Ur Specific Ames Urine Protein Urine Glucose (UA) Urine Ketones Urine Blood Urine Nitrite Ur Leukocyte Esterase Urine WBC (Auto) Urine RBC (Auto) 10/05/19 06:06 WBC RBC Hgb Hct MCV MCH MCHC RDW Plt Count Seg Neutrophils % Retic Count (auto) Sodium Potassium Chloride Carbon Dioxide Anion Gap BUN Creatinine Est GFR ( Amer) Glucose Lactic Acid Calcium Phosphorus Magnesium 2.1 D Iron TIBC % Saturation Transferrin Ferritin Total Bilirubin AST Alkaline Phosphatase Total Protein Albumin Vitamin B12 Folate Urine Color Urine Appearance Urine pH Ur Specific Ames Urine Protein Urine Glucose (UA) Urine Ketones Urine Blood Urine Nitrite Ur Leukocyte Esterase Urine WBC (Auto) Urine RBC (Auto) 10/04/19 10/04/19 17:45 17:45 Creatine Kinase 26 L CK-MB (CK-2) 0.26 Troponin I 0.057 Impressions: Abdomen/Pelvis CT 10/04/19 17:53 IMPRESSION: 1. Mild left hydroureter secondary to a 4 mm calculus in the distal left ureter as described. 2. Multiple intrarenal calculi on each side. 3. Cholelithiasis. Assessment and Plan - Diagnosis (1) Pancytopenia Is this a current diagnosis for this admission?: Yes Plan: Likely secondary to malignancy and its treatment, defer to hematology, oncology, follow-up CBC 10/05/2019 Continue to monitor CBC. Will discuss benchmarks for transfusion with oncology. (2) Hypomagnesemia Is this a current diagnosis for this admission?: Yes Plan: Secondary to malnutrition, IV repletion and reevaluation. 10/05/2019 We will supplement to achieve normal levels. Continue to monitor and supplement accordingly. (3) Hypophosphatemia Is this a current diagnosis for this admission?: Yes Plan: Secondary to malnutrition, K-Phos, follow-up phosphorus level 10/05/2019 Due to malnutrition as noted above. K-Phos is ordered. I will order recurrent laboratory studies. (4) Carcinoma, lung Qualifiers: Laterality: left Qualified Code(s): C34.92 - Malignant neoplasm of unspecified part of left bronchus or lung Is this a current diagnosis for this admission?: Yes Plan: Defer to oncology. 10/05/2019 The patient is a patient of Dr. Chavez. I have placed a consult. (5) General weakness Is this a current diagnosis for this admission?: Yes Plan: 10/05/2019 The patient complains of profound weakness. He admits it is likely related to his poor oral intake and the underlying malignancy. Hopefully if his appetite p icks up his strength should improve somewhat. (6) Malnutrition Qualifiers: Malnutrition type: protein-calorie malnutrition Is this a current diagnosis for this admission?: Yes Plan: 10/05/2019 The patient reports that his appetite is been very poor. This is due to the malignancy. I will asked the registered dietitian to offer suggestions however the patient's appetite is still poor. I will start with supplements if the patient is willing to try. (7) Pyelonephritis due to Escherichia coli Is this a current diagnosis for this admission?: Yes Plan: Complicated by nephrolithiasis, mild hydronephrosis, IV fluid challenge in an attempt to dislodge 4 mm stone, follow-up CT stone study if without significant improvement in 48 hours. Rocephin initiated for E. coli sensitivity on urine culture of September 29, 2019 follow-up CBC and urine culture 10/05/2019 As noted above the patient had a recent urine culture submitted on September 28. On identification and sensitivities usually available 48 hours after. A pansensitive E. coli was identified. The patient is currently on Rocephin. - Time Time Spent with patient: 15-24 minutes Medications reviewed and adjusted accordingly: Yes
[2019-10-05] MEDS: PHENAZOPYRIDINE HCL 200 MG TABLET PO SCH ×2 (15:31→21:02)
[2019-10-05] MEDS: NORMAL SALINE 1000 ML 1,000 ML IV PRN ×2 (17:13→23:27)
[2019-10-05] MEDS: CEFTRIAXONE 1 GM/D5W RTU 1 GM/50 ML RTUPB IV SCH (17:16)
--- NOTE | 2019-10-05 19:02 | EKG REPORT ---
SEVERITY:- ABNORMAL ECG - SINUS TACHYCARDIA LOW VOLTAGE IN FRONTAL LEADS CONSIDER ANTEROSEPTAL INFARCT MINIMAL ST DEPRESSION, LATERAL LEADS : Confirmed by: Sanam Talbot MD 05-Oct-2019 19:01:38
--- NOTE | 2019-10-05 23:26 | CDI QUERY ---
CDI Query CDI Review: Dear Provider: To better reflect your patients severity of illness, morbidity, and resource utilization Please specify and document in the Progress Notes and Discharge Summary if you are monitoring / treating / evaluating any of the following conditions: Query Clinical indicators Please clarify the degree of protein-calorie malnutrition: Severe Moderate Mild Unable to determine Please clarify and document if you are monitoring / treating / evaluating any of the following conditions: Cachexia / BMI 18.9 Underweight / BMI 18.9 Hypoalbuminemia Unable to determine Other Per Progress Notes: Malnutrition Qualifiers: Malnutrition type: protein-calorie malnutrition Is this a current diagnosis for this admission?: Yes Plan: 10/05/2019 The patient reports that his appetite is been very poor. This is due to the malignancy. I will asked the registered dietitian to offer suggestions however the patient's appetite is still poor. I will start with supplements if the patient is willing to try Height: 5 ft 11 in Weight 61.5 kg (135.3 lbs) BMI 18.9 The terms probable, suspected, likely, possible or still to be ruled out may be used if you are unable to determine the exact nature of a condition. Thank you for your consideration, Clinical Documentation Physician Advisors CHAD Shelley RN, BSN RN
[2019-10-06] MEDS: HEPARIN SOD (PORCINE) 5,000 UNIT/ML 1 ML VIAL SUBCUT SCH ×3 (05:07→21:43)
[2019-10-06] MEDS: PHENAZOPYRIDINE HCL 200 MG TABLET PO SCH ×3 (06:10→21:42)
[2019-10-06] MEDS: IPRATROPIUM/ALBUTEROL 0.5-2.5 MG/3 ML AMPUL NEB SCH ×2 (08:11→19:55)
[2019-10-06] MEDS: PHOSPHORUS #1 250 MG TABLET PO SCH ×3 (08:38→17:01)
--- NOTE | 2019-10-06 09:49 | PDOC PROGRESS REPORT ---
Subjective Progress Note for:: 10/06/19 Subjective:: Patient is feeling somewhat better. Dr. Chavez was in visiting the patient just prior to my visit. He is requesting a nicotine patch. Dr. Chavez also informed me that the patient is now DNR. Reason For Visit: PYELONEPHRITIS Physical Exam Vital Signs: Temp Pulse Resp BP Pulse Ox 98.2 F 86 16 129/81 H 98 10/06/19 07:17 10/06/19 08:11 10/06/19 08:11 10/06/19 07:17 10/06/19 08:11 Intake & Output 10/05/19 10/06/19 10/07/19 06:59 06:59 06:59 Intake Total 1150 2025 Balance 1150 2025 Weight 61.5 kg 61.5 kg General appearance: PRESENT: no acute distress, cooperative, thin, well- developed Head exam: PRESENT: atraumatic, normocephalic Eye exam: PRESENT: conjunctiva pale. ABSENT: scleral icterus Ear exam: PRESENT: normal external ear exam. ABSENT: bleeding, drainage Mouth exam: PRESENT: moist, tongue midline Respiratory exam: PRESENT: clear to auscultation joe, symmetrical, unlabored. ABSENT: prolonged expiratory phas, rales, rhonchi, tachypnea, wheezes Cardiovascular exam: PRESENT: RRR, +S1, +S2, systolic murmur - 4/6 harsh radiates to left axilla GI/Abdominal exam: PRESENT: normal bowel sounds, soft. ABSENT: distended, guarding, tenderness Rectal exam: PRESENT: deferred Extremities exam: ABSENT: pedal edema Musculoskeletal exam: PRESENT: ambulatory, normal inspection Neurological exam: PRESENT: alert, awake, oriented to person, oriented to place, oriented to time, oriented to situation, CN II-XII grossly intact. ABSENT: altered Psychiatric exam: PRESENT: appropriate affect. ABSENT: agitated, anxious Focused psych exam: ABSENT: delusional, paranoid, restlessness Skin exam: PRESENT: dry, normal color, warm. ABSENT: rash Results Laboratory Results: 10/05/19 06:06 10/05/19 06:06 10/04/19 10/04/19 17:45 17:45 Creatine Kinase 26 L CK-MB (CK-2) 0.26 Troponin I 0.057 Impressions: Abdomen/Pelvis CT 10/04/19 17:53 IMPRESSION: 1. Mild left hydroureter secondary to a 4 mm calculus in the distal left ureter as described. 2. Multiple intrarenal calculi on each side. 3. Cholelithiasis. Assessment and Plan - Diagnosis (1) Pancytopenia Is this a current diagnosis for this admission?: Yes Plan: Likely secondary to malignancy and its treatment, defer to hematology, oncology, follow-up CBC 10/05/2019 Continue to monitor CBC. Will discuss benchmarks for transfusion with oncology. 10/06/2019 Laboratory studies ordered for tomorrow. I have ordered laboratory studies now as I did not order them for this morning. His hemoglobin was 8.0 yesterday if it has dropped I will discuss transfusion with Dr. Chavez. The patient is slat ed for 4 more infusions of immunotherapy. Oncology will monitor his counts throughout. (2) Hypomagnesemia Is this a current diagnosis for this admission?: Yes Plan: Secondary to malnutrition, IV repletion and reevaluation. 10/05/2019 We will supplement to achieve normal levels. Continue to monitor and supplement accordingly. 10/06/2019 Currently normal. Recheck in the morning. (3) Hypophosphatemia Is this a current diagnosis for this admission?: Yes Plan: Secondary to malnutrition, K-Phos, follow-up phosphorus level 10/05/2019 Due to malnutrition as noted above. K-Phos is ordered. I will order recurrent laboratory studies. 10/06/2019 Continue K-Phos. Recheck in the morning. (4) Carcinoma, lung Qualifiers: Laterality: left Qualified Code(s): C34.92 - Malignant neoplasm of unspe cified part of left bronchus or lung Is this a current diagnosis for this admission?: Yes Plan: Defer to oncology. 10/05/2019 The patient is a patient of Dr. Chavez. I have placed a consult. 10/06/2019 I reviewed the case with Dr. Chavez. The patient has 4 more infusions of immunotherapy as he has only had 2 up to this point. He will receive those as an outpatient. (5) General weakness Is this a current diagnosis for this admission?: Yes Plan: 10/05/2019 The patient complains of profound weakness. He admits it is likely related to his poor oral intake and the underlying malignancy. Hopefully if his appetite picks up his strength should improve somewhat. 10/06/2019 It is still early but with his improved appetite the patient is likely to not feel as weak. Physical therapy will be seeing the patient. (6) Malnutrition Qualifiers: Malnutrition type: protein-calorie malnutrition Is this a current diagnosis for this admission?: Yes Plan: 10/05/2019 The patient reports that his appetite is been very poor. This is due to the malignancy. I will asked the registered dietitian to offer suggestions however the patient's appetite is still poor. I will start with supplements if the patient is willing to try. 10/06/2019 The patient states that he has done very well with his meals since being admitted. Consult has been placed with the dietitian as well. (7) Pyelonephritis due to Escherichia coli Is this a current diagnosis for this admission?: Yes Plan: Complicated by nephrolithiasis, mild hydronephrosis, IV fluid challenge in an attempt to dislodge 4 mm stone, follow-up CT stone study if without significant improvement in 48 hours. Rocephin initiated for E. coli sensitivity on urine c ulture of September 29, 2019 follow-up CBC and urine culture 10/05/2019 As noted above the patient had a recent urine culture submitted on September 28. On identification and sensitivities usually available 48 hours after. A pansensitive E. coli was identified. The patient is currently on Rocephin. 10/06/2019 Continue antibiotics. - Time Time Spent with patient: 15-24 minutes Medications reviewed and adjusted accordingly: Yes Anticipated discharge: Home with Homehealth
[2019-10-06] MEDS ORDERED: THIAMINE HCL 100 MG PO SCH (10:00)
[2019-10-06] MEDS ORDERED: POTASSIUM CHLORIDE 10 MEQ TABLET.ER PO SCH (10:00)
[2019-10-06] MEDS ORDERED: (PENDING PHARMACY ID) (Lisinopril/Hydrochlorothiazide [Lisinopril-Hctz 20-25 Mg Tab] 1 EAC PO SCH (10:00)
[2019-10-06] MEDS ORDERED: NICOTINE 14 MG/24 HR PATCH.TD24 TD SCH (10:00)
[2019-10-06] MEDS ORDERED: (PENDING PHARMACY ID) (Potassium Chloride [Potassium Chloride] 40 MEQ) PO SCH (10:00)
--- NOTE | 2019-10-06 10:02 | PDOC CONSULTATION ---
Consultation Consult Date: 10/06/19 Attending physician:: SOPHIA LAWRENCE Provider Consulted: ULICES MCGEE Consult reason:: Previous history of stage III lung cancer, now stage IV currently on therapy History of Present Illness Admission Date/PCP: 10/04/19 19:42 GRETA CEDILLO PA-C Patient complains of: Fever, back pain, found to have pyelonephritis History of Present Illness: Mikael WHEATLEY II is a 54 year old male with diagnosis of pyelonephritis, he did have weakness and overall just feeling bad, upon presentation he had CT of the abdomen pelvis which indicated some mild hydronephrosis along with nephrolithiasis and stranding consistent with pyelonephritis, he has been placed on appropriate antibiotics. In terms of his cancer, he was diagnosed with stage III lung cancer and was treated with concurrent chemoradiation, was being followed thereafter and in 05/2019 was found on imaging to have progression. To that extent we initiated second line therapy with Opdivo, and by now he should have received a full initial course of therapy but because of the coronavirus pandemic, treatment have been delayed, so he only received 2 treatments prior to an imaging done 09/18/2019 that indicated progressive disease in the lung. We barry d discussed that it was too soon for consideration of progression because not enough time was given for the immunotherapy to work, therefore another infusion was given and he was continued as an outpatient. Today had a long discussion about CODE STATUS and he is DNR. However, he does not feel ready for hospice, and we agreed with this given the fact that he only had a short course of immunotherapy before last imaging. We did discuss however that if immunotherapy does not work noted on imaging in the next 6 weeks, that third line therapy has less likelihood of helping. He understands that but currently feels that his performance status is good enough to continue to treat. Past Medical History Cardiac Medical History: Reports: DVT, Hypertension, Peripheral Vascular Disease Denies: Congestive Heart Failure, Myocardial Infarction Pulmonary Medical History: Reports: Pneumonia Denies: Asthma, Bronchitis, Chronic Obstructive Pulmonary Disease (COPD), Tuberculosis Neurological Medical History: Denies: Migraine, Seizures Endocrine Medical History: Denies: Diabetes Mellitus Type 2, Hyperthyroidism, Hypothyroidism Renal/ Medical History: Denies: End Stage Renal Disease Malignancy Medical History: Reports: Lung Cancer GI Medical History: Reports: Gastroesophageal Reflux Disease Denies: Cirrhosis Musculoskeltal Medical History: Denies: Arthritis Psychiatric Medical History: Denies: Bipolar Disorder, Depression Traumatic Medical History: Denies: Gunshot Wound, Traumatic Brain Injury Hematology: Reports: Anemia Denies: Bleeding Tendencies Past Surgical History Past Surgical History: Reports: Other - Bronchoscopy x2 Social History Smoking Status: Current Every Day Smoker Cigarettes Packs Per Day: 1 Frequency of Alcohol Use: Heavy Hx Recreational Drug Use: No Drugs: None Hx Prescription Drug Abuse: No - Advance Directive Resuscitation Status: Do Not Resuscitate Family History Family History: Hypertension, Malignancy - Mother with breast cancer Parental Family History Reviewed: Yes Children Family History Reviewed: Yes Sibling(s) Family History Reviewed.: Yes Medication/Allergy Home Medications: Cefdinir 300 mg PO BID #20 capsule 09/29/19 Phenazopyridine HCl [Pyridium 200 mg Tablet] 200 mg PO TID #15 tablet 09/29/19 Lisinopril/Hydrochlorothiazide [Lisinopril-Hctz 20-25 mg Tab] 1 each PO DAILY 10/05/19 Potassium Chloride 40 meq PO DAILY 10/05/19 Thiamine HCl [B-1] 100 mg PO DAILY 10/05/19 Allergies/Adverse Reactions: Penicillins Allergy (Verified 09/20/18 11:13) Review of Systems Constitutional: ABSENT: chills, fever(s), headache(s), weight gain, weight loss Eyes: ABSENT: visual disturbances Ears: ABSENT: hearing changes Cardiovascular: ABSENT: chest pain, dyspnea on exertion, edema, orthropnea, palp itations Respiratory: ABSENT: cough, hemoptysis Gastrointestinal: ABSENT: abdominal pain, constipation, diarrhea, hematemesis, hematochezia, nausea, vomiting Genitourinary: ABSENT: dysuria, hematuria Musculoskeletal: ABSENT: joint swelling Integumentary: ABSENT: rash, wounds Neurological: ABSENT: abnormal gait, abnormal speech, confusion, dizziness, focal weakness, syncope Psychiatric: ABSENT: anxiety, depression, homidical ideation, suicidal ideation Endocrine: ABSENT: cold intolerance, heat intolerance, polydipsia, polyuria Hematologic/Lymphatic: ABSENT: easy bleeding, easy bruising Physical Exam Vital Signs: Temp Pulse Resp BP Pulse Ox 98.2 F 86 16 129/81 H 98 10/06/19 07:17 10/06/19 08:11 10/06/19 08:11 10/06/19 07:17 10/06/19 08:11 Intake & Output 10/05/19 10/06/19 10/07/19 06:59 06:59 06:59 Intake Total 1150 2025 Balance 1150 2025 Weight 61.5 kg 61.5 kg General appearance: PRESENT: no acute distress, well-developed, well-nourished Head exam: PRESENT: atraumatic, normocephalic Eye exam: PRESENT: conjunctiva pink, EOMI, PERRLA. ABSENT: scleral icterus Ear exam: PRESENT: normal external ear exam Mouth exam: PRESENT: moist, tongue midline Neck exam: ABSENT: carotid bruit, JVD, lymphadenopathy, thyromegaly Respiratory exam: PRESENT: clear to auscultation joe. ABSENT: rales, rhonchi, wheezes Cardiovascular exam: PRESENT: RRR. ABSENT: diastolic murmur, rubs, systolic murmur Pulses: PRESENT: normal dorsalis pedis pul Vascular exam: PRESENT: normal capillary refill GI/Abdominal exam: PRESENT: normal bowel sounds, soft. ABSENT: distended, guarding, mass, organolmegaly, rebound, tenderness Rectal exam: PRESENT: deferred Extremities exam: PRESENT: full ROM. ABSENT: calf tenderness, clubbing, pedal edema Neurological exam: PRESENT: alert, awake, oriented to person, oriented to place, oriented to time, oriented to situation, CN II-XII grossly intact. ABSENT: motor sensory deficit Psychiatric exam: PRESENT: appropriate affect, normal mood. ABSENT: homicidal ideation, suicidal ideation Skin exam: PRESENT: dry, intact, warm. ABSENT: cyanosis, rash Results Laboratory Results: 10/05/19 06:06 10/05/19 06:06 10/04/19 10/04/19 17:45 17:45 Creatine Kinase 26 L CK-MB (CK-2) 0.26 Troponin I 0.057 Impressions: Abdomen/Pelvis CT 10/04/19 17:53 IMPRESSION: 1. Mild left hydroureter secondary to a 4 mm calculus in the distal left ureter as described. 2. Multiple intrarenal calculi on each side. 3. Cholelithiasis. Status: Image reviewed by me Assessment & Plan - Diagnosis (1) Carcinoma, lung Qualifiers: Laterality: left Qualified Code(s): C34.92 - Malignant neoplasm of unspecified part of left bronchus or lung Is this a current diagnosis for this admission?: Yes Plan: Stage IV lung cancer, currently on Opdivo, we will plan to continue as an outp atient. Do not feel that this is causing any of his current presentation. Discussed with patient as well as hospitalist team. (2) Pancytopenia Is this a current diagnosis for this admission?: Yes Plan: Pancytopenia, this also is not related to chemotherapy as current chemotherapy does not cause cytopenias. Probably related in some part to the pyelonephritis. He may have some element of cirrhosis as he was a previous heavy drinker. This could be contributing as well. Otherwise, no need for transfusion currently. Will follow. - Time Time Spent: Greater than 70 Minutes
[2019-10-06] MEDS: HYDROCHLOROTHIAZIDE 25 MG TABLET PO SCH (10:45)
[2019-10-06] MEDS: THIAMINE HCL 100 MG TABLET PO SCH (10:46)
[2019-10-06] MEDS: MEGESTROL ACETATE 20 MG TABLET PO SCH (10:46)
[2019-10-06] MEDS: LISINOPRIL 10 MG TABLET PO SCH (10:46)
[2019-10-06] MEDS: NICOTINE 14 MG/24 HR PATCH.TD24 TD SCH (10:47)
[2019-10-06] MEDS: DOCUSATE SODIUM 100 MG CAPSULE PO SCH ×2 (11:16→17:09)
[2019-10-06 13:51] LABS: HEMATOCRIT 20.4 % (37.9-51.0); MEAN CORPUSCULAR HEMOGLOBIN 40.5 pg (27.0-33.4); MEAN CORPUSCULAR HGB CONC 35.6 g/dL (32.0-36.0); MEAN CORPUSCULAR VOLUME 114 fl (80-97); RED CELL DISTRIBUTION WIDTH 27.9 % (11.5-14.0)
[2019-10-06 14:07] LABS: ANION GAP 7 (5-19); BLOOD UREA NITROGEN 22 mg/dL (7-20); CALCIUM 7.4 mg/dL (8.4-10.2); CARBON DIOXIDE 21 mmol/L (22-30); CHLORIDE 110 mmol/L (98-107); GLUCOSE 127 mg/dL (75-110); POTASSIUM 3.1 mmol/L (3.6-5.0)
[2019-10-06 14:13] LABS: WHITE BLOOD COUNT 2.3 10^3/uL (4.0-10.5)
[2019-10-06 14:15] LABS: PLATELET COUNT 75 10^3/uL (150-450)
[2019-10-06 14:17] LABS: HEMOGLOBIN 7.3 g/dL (13.5-17.0)
[2019-10-06 14:20] LABS: ABSOLUTE LYMPHOCYTES# (MANUAL) 0.2 10^3/uL (0.5-4.7); ABSOLUTE MONOCYTES # (MANUAL) 0.3 10^3/uL (0.1-1.4); BASOPHILS % (MANUAL) 2 % (0-2); EOSINOPHILS % (MANUAL) 3 % (0-6); LYMPHOCYTES % (MANUAL) 9 % (13-45); MONOCYTES % (MANUAL) 15 % (3-13); SEGMENTED NEUTROPHILS % (MAN) 71 % (42-78); TOTAL CELLS COUNTED 100
[2019-10-06 14:21] LABS: ANISOCYTOSIS 3+; PLATELET COMMENT DECREASED; POIKILOCYTOSIS SLIGHT; SCHISTOCYTES SLIGHT; TOXIC GRANULATION SLIGHT; TOXIC VACUOLATION PRESENT
[2019-10-06] MEDS ORDERED: NORMAL SALINE 250 ML IV PRN ×2 (14:54)
[2019-10-06 15:42] LABS: PARTIAL THROMBOPLASTIN TIME 31.8 SEC (23.5-35.8)
[2019-10-06] MEDS: CEFTRIAXONE 1 GM/D5W RTU 1 GM/50 ML RTUPB IV SCH (17:02)
[2019-10-07 01:17] LABS: HEMATOCRIT 22.9 % (37.9-51.0); MEAN CORPUSCULAR HEMOGLOBIN 38.2 pg (27.0-33.4); MEAN CORPUSCULAR HGB CONC 34.4 g/dL (32.0-36.0); RED BLOOD COUNT 2.06 10^6/uL (4.35-5.55); RED CELL DISTRIBUTION WIDTH 28.2 % (11.5-14.0); WHITE BLOOD COUNT 2.8 10^3/uL (4.0-10.5)
[2019-10-07 01:20] LABS: MEAN CORPUSCULAR VOLUME 111 fl (80-97)
[2019-10-07 01:21] LABS: HEMOGLOBIN 7.9 g/dL (13.5-17.0); PLATELET COUNT 76 10^3/uL (150-450)
[2019-10-07 01:26] LABS: ABSOLUTE LYMPHOCYTES# (MANUAL) 0.5 10^3/uL (0.5-4.7); ABSOLUTE MONOCYTES # (MANUAL) 0.1 10^3/uL (0.1-1.4); BASOPHILS % (MANUAL) 0 % (0-2); EOSINOPHILS % (MANUAL) 0 % (0-6); LYMPHOCYTES % (MANUAL) 17 % (13-45); MONOCYTES % (MANUAL) 5 % (3-13); SEGMENTED NEUTROPHILS % (MAN) 78 % (42-78); TOTAL CELLS COUNTED 100
[2019-10-07 01:28] LABS: ANISOCYTOSIS 3+; POIKILOCYTOSIS 3+; TOXIC GRANULATION 1+
[2019-10-07 01:29] LABS: BURR CELLS 1+; OVALOCYTES SLIGHT; PLATELET COMMENT DECREASED; TEAR DROP CELLS SLIGHT
[2019-10-07 05:08] LABS: HEMOGLOBIN 8.1 g/dL (13.5-17.0); MEAN CORPUSCULAR HEMOGLOBIN 38.6 pg (27.0-33.4); MEAN CORPUSCULAR HGB CONC 35.3 g/dL (32.0-36.0); MEAN CORPUSCULAR VOLUME 109 fl (80-97); RED CELL DISTRIBUTION WIDTH 28.5 % (11.5-14.0); WHITE BLOOD COUNT 2.9 10^3/uL (4.0-10.5)
[2019-10-07 05:25] LABS: ANION GAP 5 (5-19); BLOOD UREA NITROGEN 26 mg/dL (7-20); CALCIUM 7.6 mg/dL (8.4-10.2); CARBON DIOXIDE 23 mmol/L (22-30); CHLORIDE 109 mmol/L (98-107); GLUCOSE 85 mg/dL (75-110); POTASSIUM 3.3 mmol/L (3.6-5.0)
[2019-10-07 05:35] LABS: PLATELET COUNT 85 10^3/uL (150-450)
[2019-10-07 05:41] LABS: ABSOLUTE LYMPHOCYTES# (MANUAL) 0.5 10^3/uL (0.5-4.7); ABSOLUTE MONOCYTES # (MANUAL) 0.1 10^3/uL (0.1-1.4); BASOPHILS % (MANUAL) 0 % (0-2); EOSINOPHILS % (MANUAL) 0 % (0-6); LYMPHOCYTES % (MANUAL) 16 % (13-45); MONOCYTES % (MANUAL) 2 % (3-13); SEGMENTED NEUTROPHILS % (MAN) 82 % (42-78); TOTAL CELLS COUNTED 100
[2019-10-07 05:46] LABS: ANISOCYTOSIS 3+; BURR CELLS SLIGHT; OVALOCYTES 1+; PLATELET COMMENT DECREASED; POIKILOCYTOSIS 3+; TEAR DROP CELLS SLIGHT; TOXIC GRANULATION 1+
[2019-10-07] MEDS: MAGNESIUM SULFATE/D5W 1 GM/100 ML RTUPB IV SCH ×3 (06:15→08:47)
[2019-10-07] MEDS: PHENAZOPYRIDINE HCL 200 MG TABLET PO SCH ×3 (06:16→22:06)
[2019-10-07] MEDS: HEPARIN SOD (PORCINE) 5,000 UNIT/ML 1 ML VIAL SUBCUT SCH ×3 (06:23→22:00)
--- NOTE | 2019-10-07 06:54 | PDOC PROGRESS REPORT ---
Subjective Progress Note for:: 10/07/19 Subjective:: The patient is feeling very good today. He has been up to the bathroom. He states that he ate a good breakfast. Reason For Visit: PYELONEPHRITIS Physical Exam Vital Signs: Temp Pulse Resp BP Pulse Ox 98.1 F 70 16 152/81 H 100 10/06/19 22:05 10/07/19 02:00 10/06/19 22:05 10/06/19 21:15 10/06/19 22:05 Intake & Output 10/05/19 10/06/19 10/07/19 06:59 06:59 06:59 Intake Total 1150 2025 179 Balance 1150 2025 179 Weight 61.5 kg 61.5 kg 63.8 kg General appearance: PRESENT: no acute distress, cooperative, thin, well- developed Head exam: PRESENT: atraumatic, normocephalic Eye exam: PRESENT: conjunctiva pale. ABSENT: scleral icterus Ear exam: PRESENT: normal external ear exam. ABSENT: bleeding, drainage Mouth exam: PRESENT: moist, tongue midline Respiratory exam: PRESENT: clear to auscultation joe, symmetrical, unlabored. ABSENT: prolonged expiratory phas, rales, rhonchi, tachypnea, wheezes Cardiovascular exam: PRESENT: RRR, +S1, +S2, systolic murmur - 2/6. ABSENT: diastolic murmur GI/Abdominal exam: PRESENT: normal bowel sounds, soft. ABSENT: distended, guarding, tenderness Rectal exam: PRESENT: deferred Extremities exam: PRESENT: pedal edema, other - Pigmented cobblestoning lower extremities from chronic edema. Skin wrinkling suggesting recent improvement in edema. Musculoskeletal exam: PRESENT: ambulatory Neurological exam: PRESENT: alert, awake, oriented to person, oriented to place, oriented to time, oriented to situation, CN II-XII grossly intact. ABSENT: altered Psychiatric exam: PRESENT: appropriate affect. ABSENT: agitated, anxious, unusual affect Focused psych exam: ABSENT: delusional, paranoid, restlessness Results Laboratory Results: 10/07/19 03:28 10/07/19 03:28 10/06/19 10/06/19 10/06/19 13:29 13:35 15:30 WBC 2.3 L D RBC 1.80 L Hgb 7.3 L Hct 20.4 L MCV 114 H MCH 40.5 H MCHC 35.6 RDW 27.9 H Plt Count 75 L Seg Neutrophils % Not Reportable Sodium 137.7 Potassium 3.1 L Chloride 110 H Carbon Dioxide 21 L Anion Gap 7 BUN 22 H Creatinine 1.19 Est GFR ( Amer) > 60 Glucose 127 H Calcium 7.4 L Magnesium Stool Occult Blood Blood Type A NEGATIVE Antibody Screen NEGATIVE 10/06/19 10/07/19 10/07/19 16:20 00:30 03:28 WBC 2.8 L 2.9 L RBC 2.06 L 2.10 L Hgb 7.9 L 8.1 L Hct 22.9 L 23.0 L MCV 111 H 109 H MCH 38.2 H 38.6 H MCHC 34.4 35.3 RDW 28.2 H 28.5 H Plt Count 76 L 85 L Seg Neutrophils % Not Reportable Not Reportable Sodium Potassium Chloride Carbon Dioxide Anion Gap BUN Creatinine Est GFR ( Amer) Glucose Calcium Magnesium Stool Occult Blood NEGATIVE Blood Type Antibody Screen 10/07/19 03:28 WBC RBC Hgb Hct MCV MCH MCHC RDW Plt Count Seg Neutrophils % Sodium 137.4 Potassium 3.3 L Chloride 109 H Carbon Dioxide 23 Anion Gap 5 BUN 26 H Creatinine 1.33 H Est GFR ( Amer) > 60 Glucose 85 Calcium 7.6 L Magnesium 1.2 L* Stool Occult Blood Blood Type Antibody Screen 10/04/19 10/04/19 17:45 17:45 Creatine Kinase 26 L CK-MB (CK-2) 0.26 Troponin I 0.057 Impressions: Abdomen/Pelvis CT 10/04/19 17:53 IMPRESSION: 1. Mild left hydroureter secondary to a 4 mm calculus in the distal left ureter as described. 2. Multiple intrarenal calculi on each side. 3. Cholelithiasis. Assessment and Plan - Diagnosis (1) Pancytopenia Is this a current diagnosis for this admission?: Yes Plan: Likely secondary to malignancy and its treatment, defer to hematology, oncology, follow-up CBC 10/05/2019 Continue to monitor CBC. Will discuss benchmarks for transfusion with oncology. 10/06/2019 Laboratory studies ordered for tomorrow. I have ordered laboratory studies now as I did not order them for this morning. His hemoglobin was 8.0 yesterday if it has dropped I will discuss transfusion with Dr. Chavez. The patient is slated for 4 more infusions of immunotherapy. Oncology will monitor his counts throughout. 10/07/2019 Hemoglobin is up to 8.1 from 7.9. He received 1 unit of packed red blood cells yesterday. Unfortunately his reticulocyte count was only 0.25. Stool for occult blood was negative. Platelet count is up to 85 from 76. White blood cell count is 2.9 up slightly from 2.8 yesterday. The plan is to recheck a CBC tomorrow. If stable then discharge to home with follow-up in Dr. Chavez's office. (2) Hypomagnesemia Is this a current diagnosis for this admission?: Yes Plan: Secondary to malnutrition, IV repletion and reevaluation. 10/05/2019 We will supplement to achieve normal levels. Continue to monitor and supplement accordingly. 10/06/2019 Currently normal. Recheck in the morning. 10/07/2019 Magnesium was 1.2 this morning. He will receive 3 g of magnesium sulfate IV. I will increase his magnesium oxide with meals to 800 mg 3 times a day. Laboratory studies are ordered for tomorrow. (3) Hypophosphatemia Is this a current diagnosis for this admission?: Yes Plan: Secondary to malnutrition, K-Phos, follow-up phosphorus level 10/05/2019 Due to malnutrition as noted above. K-Phos is ordered. I will order recurrent laboratory studies. 10/06/2019 Continue K-Phos. Recheck in the morning. 10/07/2019 We will add phosphorus level to today's blood work. Continue potassium phosphate. Level ordered for the morning. (4) Carcinoma, lung Qualifiers: Laterality: left Qualified Code(s): C34.92 - Malignant neoplasm of unspecif ied part of left bronchus or lung Is this a current diagnosis for this admission?: Yes Plan: Defer to oncology. 10/05/2019 The patient is a patient of Dr. Chavez. I have placed a consult. 10/06/2019 I reviewed the case with Dr. Chavez. The patient has 4 more infusions of immunotherapy as he has only had 2 up to this point. He will receive those as an outpatient. 10/07/2019 Patient reports that he is actually had 3 treatments already and has 3 to go. He reports an appointment with Dr. Chavez on Tuesday. They will likely repeat blood work and decide when the next infusion will be. (5) General weakness Is this a current diagnosis for this admission?: Yes Plan: 10/05/2019 The patient complains of profound weakness. He admits it is likely related to his poor oral intake and the underlying malignancy. Hopefully if his appetite picks up his strength should improve somewhat. 10/06/2019 It is still early but with his improved appetite the patient is likely to not feel as weak. Physical therapy will be seeing the patient. 10/07/2019 The patient has been very robust lately. You can tell he is not feeling as weak. His appetite is improved. He was very demonstrative about wanting to fight his cancer. (6) Pyelonephritis due to Escherichia coli Is this a current diagnosis for this admission?: Yes Plan: Complicated by nephrolithiasis, mild hydronephrosis, IV fluid challenge in an attempt to dislodge 4 mm stone, follow-up CT stone study if without significant improvement in 48 hours. Rocephin initiated for E. coli sensitivity on urine culture of September 29, 2019 follow-up CBC and urine culture 10/05/2019 As noted above the patient had a recent urine culture submitted on September 28. On identification and sensitivities usually available 48 hours after. A pansensitive E. coli was identified. The patient is currently on Rocephin. 10/06/2019 Continue antibiotics. 10/07/2019 Antibiotics through October 10. Urine culture prior to admission showed the E. coli noted above. With a plan to discharge tomorrow the patient will finish antibiotic therapy as an outpatient. (7) Malnutrition Qualifiers: Malnutrition type: protein-calorie malnutrition Is this a current diagnosis for this admission?: Yes Plan: 10/05/2019 The patient reports that his appetite is been very poor. This is due to the ma lignancy. I will asked the registered dietitian to offer suggestions however the patient's appetite is still poor. I will start with supplements if the patient is willing to try. 10/06/2019 The patient states that he has done very well with his meals since being admitted. Consult has been placed with the dietitian as well. 10/07/2019 Due to the anticipated short length of stay monitoring body weight, albumin, protein and other serum chemistry markers would not be meaningful. Unable to determine the level of malnutrition at this point. Awaiting dietitian consult. The patient's appetite has improved significantly however and so this is being corrected. - Time Time Spent with patient: 15-24 minutes Medications reviewed and adjusted accordingly: Yes Anticipated discharge: Home Within: within 24 hours
[2019-10-07] MEDS ORDERED: MAGNESIUM SULFATE/D5W 1 GM/100 ML RTUPB IV SCH (07:00)
[2019-10-07] MEDS: PHOSPHORUS #1 250 MG TABLET PO SCH ×3 (07:44→17:14)
[2019-10-07] MEDS: IPRATROPIUM/ALBUTEROL 0.5-2.5 MG/3 ML AMPUL NEB SCH ×2 (07:57→20:34)
[2019-10-07] MEDS ORDERED: MAGNESIUM OXIDE 400 MG TABLET PO SCH (08:00)
[2019-10-07] MEDS: POTASSIUM CHLORIDE 10 MEQ TABLET.ER PO SCH ×2 (10:03→17:14)
[2019-10-07] MEDS: NICOTINE 14 MG/24 HR PATCH.TD24 TD SCH (10:03)
[2019-10-07] MEDS: LISINOPRIL 10 MG TABLET PO SCH (10:04)
[2019-10-07] MEDS: HYDROCHLOROTHIAZIDE 25 MG TABLET PO SCH (10:04)
[2019-10-07] MEDS: MEGESTROL ACETATE 20 MG TABLET PO SCH (10:04)
[2019-10-07] MEDS: THIAMINE HCL 100 MG TABLET PO SCH (10:04)
[2019-10-07] MEDS: DOCUSATE SODIUM 100 MG CAPSULE PO SCH ×2 (10:08→17:14)
[2019-10-07] MEDS: MAGNESIUM OXIDE 400 MG TABLET PO SCH ×2 (13:07→17:14)
[2019-10-07 16:47] LABS: ANION GAP 5 (5-19); BLOOD UREA NITROGEN 23 mg/dL (7-20); CALCIUM 7.5 mg/dL (8.4-10.2); CARBON DIOXIDE 25 mmol/L (22-30); CHLORIDE 105 mmol/L (98-107); GLUCOSE 101 mg/dL (75-110); POTASSIUM 3.6 mmol/L (3.6-5.0)
[2019-10-07] MEDS: CEFTRIAXONE 1 GM/D5W RTU 1 GM/50 ML RTUPB IV SCH (17:14)
[2019-10-08] MEDS: HEPARIN SOD (PORCINE) 5,000 UNIT/ML 1 ML VIAL SUBCUT SCH ×3 (05:24→22:24)
[2019-10-08] MEDS: PHENAZOPYRIDINE HCL 200 MG TABLET PO SCH ×3 (05:48→22:22)
[2019-10-08 06:20] LABS: ABSOLUTE EOSINOPHILS # (AUTO) 0.1 10^3/uL (0.0-0.6); ABSOLUTE LYMPHOCYTES (AUTO) 0.4 10^3/uL (0.5-4.7); ABSOLUTE MONOCYTES (AUTO) 0.2 10^3/uL (0.1-1.4); ABSOLUTE NEUT (AUTO) 2.5 10^3/uL (1.7-8.2); BASOPHILS % (AUTO) 0.9 % (0-2); EOSINOPHILS % (AUTO) 2.4 % (0-6); HEMATOCRIT 24.7 % (37.9-51.0); HEMOGLOBIN 8.8 g/dL (13.5-17.0); LYMPHOCYTES % (AUTO) 12.7 % (13-45); MEAN CORPUSCULAR HEMOGLOBIN 38.6 pg (27.0-33.4); MEAN CORPUSCULAR HGB CONC 35.5 g/dL (32.0-36.0); MEAN CORPUSCULAR VOLUME 109 fl (80-97); MONOCYTES % (AUTO) 7.6 % (3-13); RED BLOOD COUNT 2.27 10^6/uL (4.35-5.55); RED CELL DISTRIBUTION WIDTH 28.1 % (11.5-14.0); SEGMENTED NEUTROPHILS % (AUTO) 76.4 % (42-78); TOTAL CELLS COUNTED % (AUTO) 100 %; WHITE BLOOD COUNT 3.2 10^3/uL (4.0-10.5)
[2019-10-08 06:50] LABS: ANION GAP 6 (5-19); BLOOD UREA NITROGEN 26 mg/dL (7-20); CALCIUM 7.8 mg/dL (8.4-10.2); CARBON DIOXIDE 24 mmol/L (22-30); CHLORIDE 105 mmol/L (98-107); GLUCOSE 90 mg/dL (75-110); PHOSPHORUS 2.2 mg/dL (2.5-4.5); PLATELET COUNT 88 10^3/uL (150-450)
[2019-10-08 06:53] LABS: ANISOCYTOSIS 4+; OVALOCYTES 1+; PLATELET COMMENT DECREASED; POIKILOCYTOSIS 1+
--- NOTE | 2019-10-08 08:03 | PDOC PROGRESS REPORT ---
Subjective Progress Note for:: 10/08/19 Subjective:: Getting better, feels that he needs one more day inpt to recover and get stronger Reason For Visit: PYELONEPHRITIS Physical Exam Vital Signs: Temp Pulse Resp BP Pulse Ox 98.9 F 69 16 136/85 H 93 10/07/19 23:32 10/08/19 07:00 10/07/19 23:32 10/07/19 23:32 10/07/19 23:32 Intake & Output 10/07/19 10/08/19 10/09/19 06:59 06:59 06:59 Intake Total 1840 2570 Balance 1840 2570 Weight 63.8 kg 64.4 kg General appearance: PRESENT: no acute distress, well-developed, well-nourished Head exam: PRESENT: atraumatic, normocephalic Eye exam: PRESENT: conjunctiva pink, EOMI, PERRLA. ABSENT: scleral icterus Ear exam: PRESENT: normal external ear exam Mouth exam: PRESENT: moist, tongue midline Neck exam: ABSENT: carotid bruit, JVD, lymphadenopathy, thyromegaly Respiratory exam: PRESENT: clear to auscultation joe. ABSENT: rales, rhonchi, wheezes Cardiovascular exam: PRESENT: RRR. ABSENT: diastolic murmur, rubs, systolic murmur Pulses: PRESENT: normal dorsalis pedis pul Vascular exam: PRESENT: normal capillary refill GI/Abdominal exam: PRESENT: normal bowel sounds, soft. ABSENT: distended, guarding, mass, organolmegaly, rebound, tenderness Rectal exam: PRESENT: deferred Extremities exam: PRESENT: full ROM. ABSENT: calf tenderness, clubbing, pedal edema Neurological exam: PRESENT: alert, awake, oriented to person, oriented to place, oriented to time, oriented to situation, CN II-XII grossly intact. ABSENT: motor sensory deficit Psychiatric exam: PRESENT: appropriate affect, normal mood. ABSENT: homicidal ideation, suicidal ideation Skin exam: PRESENT: dry, intact, warm. ABSENT: cyanosis, rash Results Laboratory Results: 10/08/19 05:04 10/08/19 05:04 10/07/19 10/07/19 10/08/19 03:28 16:24 05:04 WBC RBC Hgb Hct MCV MCH MCHC RDW Plt Count Seg Neutrophils % Sodium 135.3 L 134.5 L Potassium 3.6 4.0 Chloride 105 105 Carbon Dioxide 25 24 Anion Gap 5 6 BUN 23 H 26 H Creatinine 1.40 H 1.06 Est GFR ( Amer) > 60 > 60 Glucose 101 90 Calcium 7.5 L 7.8 L Phosphorus 2.4 L 2.2 L Magnesium 1.9 1.6 10/08/19 05:04 WBC 3.2 L RBC 2.27 L Hgb 8.8 L Hct 24.7 L MCV 109 H MCH 38.6 H MCHC 35.5 RDW 28.1 H Plt Count 88 L Seg Neutrophils % 76.4 Sodium Potassium Chloride Carbon Dioxide Anion Gap BUN Creatinine Est GFR ( Amer) Glucose Calcium Phosphorus Magnesium 10/04/19 10/04/19 17:45 17:45 Creatine Kinase 26 L CK-MB (CK-2) 0.26 Troponin I 0.057 Impressions: Abdomen/Pelvis CT 10/04/19 17:53 IMPRESSION: 1. Mild left hydroureter secondary to a 4 mm calculus in the distal left ureter as described. 2. Multiple intrarenal calculi on each side. 3. Cholelithiasis. Assessment & Plan - Diagnosis (1) Carcinoma, lung Qualifiers: Laterality: left Qualified Code(s): C34.92 - Malignant neoplasm of un specified part of left bronchus or lung Is this a current diagnosis for this admission?: Yes Plan: Further rx planned as outpt (2) Pancytopenia Is this a current diagnosis for this admission?: Yes Plan: stabilized. should improve as pyelo resolves. - Time Time Spent with patient: 15-24 minutes Within: within 24 hours Disposition: Suggest 1 more day in w/ IV Atbx and inpt care. D/c by tomorrow. he has f/u in our office on tuesday for continued rx.
[2019-10-08] MEDS: IPRATROPIUM/ALBUTEROL 0.5-2.5 MG/3 ML AMPUL NEB SCH ×2 (08:08→20:13)
[2019-10-08] MEDS: MAGNESIUM OXIDE 400 MG TABLET PO SCH ×3 (08:13→17:13)
[2019-10-08] MEDS ORDERED: HYDRALAZINE HCL INJ/PF 20 MG/1 ML SDV IV PRN (09:59)
[2019-10-08] MEDS: DOCUSATE SODIUM 100 MG CAPSULE PO SCH ×2 (10:40→17:12)
[2019-10-08] MEDS: NICOTINE 14 MG/24 HR PATCH.TD24 TD SCH (10:41)
[2019-10-08] MEDS: POTASSIUM CHLORIDE 10 MEQ TABLET.ER PO SCH ×2 (10:43→17:13)
[2019-10-08] MEDS: THIAMINE HCL 100 MG TABLET PO SCH (10:43)
[2019-10-08] MEDS: LISINOPRIL 10 MG TABLET PO SCH (10:43)
[2019-10-08] MEDS: MEGESTROL ACETATE 20 MG TABLET PO SCH (10:44)
[2019-10-08] MEDS: HYDROCHLOROTHIAZIDE 25 MG TABLET PO SCH (10:44)
--- NOTE | 2019-10-08 10:49 | PDOC PROGRESS REPORT ---
Subjective Progress Note for:: 10/08/19 Subjective:: The patient is feeling good. Dr. Chavez saw him earlier. The plan is discharge tomorrow on oral antibiotics to complete his course of therapy. Reason For Visit: PYELONEPHRITIS Physical Exam Vital Signs: Temp Pulse Resp BP Pulse Ox 98.1 F 85 17 152/100 H 100 10/08/19 08:00 10/08/19 08:00 10/08/19 08:00 10/08/19 08:00 10/08/19 08:00 Intake & Output 10/07/19 10/08/19 10/09/19 06:59 06:59 06:59 Intake Total 1840 2570 Balance 1840 2570 Weight 63.8 kg 64.4 kg General appearance: PRESENT: no acute distress, thin, well-developed Ear exam: PRESENT: normal external ear exam. ABSENT: bleeding, drainage Mouth exam: PRESENT: moist, tongue midline Respiratory exam: PRESENT: clear to auscultation joe, symmetrical, unlabored. ABSENT: rales, rhonchi, tachypnea, wheezes Cardiovascular exam: PRESENT: RRR, +S1, +S2, systolic murmur. ABSENT: irregular rhythm GI/Abdominal exam: PRESENT: normal bowel sounds, soft. ABSENT: distended, guarding, tenderness Rectal exam: PRESENT: deferred Gentrourinary exam: ABSENT: indwelling catheter Neurological exam: PRESENT: alert, awake, oriented to person, oriented to place, oriented to time, oriented to situation, CN II-XII grossly intact. ABSENT: altered Psychiatric exam: PRESENT: appropriate affect. ABSENT: agitated, anxious Focused psych exam: ABSENT: delusional, paranoid, restlessness Skin exam: PRESENT: dry, normal color, warm Results Laboratory Results: 10/08/19 05:04 10/08/19 05:04 10/07/19 10/07/19 10/08/19 03:28 16:24 05:04 WBC RBC Hgb Hct MCV MCH MCHC RDW Plt Count Seg Neutrophils % Sodium 135.3 L 134.5 L Potassium 3.6 4.0 Chloride 105 105 Carbon Dioxide 25 24 Anion Gap 5 6 BUN 23 H 26 H Creatinine 1.40 H 1.06 Est GFR ( Amer) > 60 > 60 Glucose 101 90 Calcium 7.5 L 7.8 L Phosphorus 2.4 L 2.2 L Magnesium 1.9 1.6 10/08/19 05:04 WBC 3.2 L RBC 2.27 L Hgb 8.8 L Hct 24.7 L MCV 109 H MCH 38.6 H MCHC 35.5 RDW 28.1 H Plt Count 88 L Seg Neutrophils % 76.4 Sodium Potassium Chloride Carbon Dioxide Anion Gap BUN Creatinine Est GFR ( Amer) Glucose Calcium Phosphorus Magnesium 10/04/19 10/04/19 17:45 17:45 Creatine Kinase 26 L CK-MB (CK-2) 0.26 Troponin I 0.057 Impressions: Abdomen/Pelvis CT 10/04/19 17:53 IMPRESSION: 1. Mild left hydroureter secondary to a 4 mm calculus in the distal left ureter as described. 2. Multiple intrarenal calculi on each side. 3. Cholelithiasis. Assessment and Plan - Diagnosis (1) Pancytopenia Is this a current diagnosis for this admission?: Yes Plan: Likely secondary to malignancy and its treatment, defer to hematology, oncology, follow-up CBC 10/05/2019 Continue to monitor CBC. Will discuss benchmarks for transfusion with oncology. 10/06/2019 Laboratory studies ordered for tomorrow. I have ordered laboratory studies now as I did not order them for this morning. His hemoglobin was 8.0 yesterday if it has dropped I will discuss transfusion with Dr. Chavez. The patient is slated for 4 more infusions of immunotherapy. Oncology will monitor his counts throughout. 10/07/2019 Hemoglobin is up to 8.1 from 7.9. He received 1 unit of packed red blood cells yesterday. Unfortunately his reticulocyte count was only 0.25. Stool for occult blood was negative. Platelet count is up to 85 from 76. White blood cell count is 2.9 up slightly from 2.8 yesterday. The plan is to recheck a CBC tomorrow. If stable then discharge to home with follow-up in Dr. Chavez's office. 10/08/2019 All counts are slowly improving. The patient has an appointment this week with Dr. Chavez. He will repeat blood work at that time. (2) Hypomagnesemia Is this a current diagnosis for this admission?: Yes Plan: Secondary to malnutrition, IV repletion and reevaluation. 10/05/2019 We will supplement to achieve normal levels. Continue to monitor and supplement accordingly. 10/06/2019 Currently normal. Recheck in the morning. 10/07/2019 Magnesium was 1.2 this morning. He will receive 3 g of magnesium sulfate IV. I will increase his magnesium oxide with meals to 800 mg 3 times a day. Laboratory studies are ordered for tomorrow. 10/08/2019 Oral magnesium dose increased. Recheck levels. (3) Hypophosphatemia Is this a current diagnosis for this admission?: Yes Plan: Secondary to malnutrition, K-Phos, follow-up phosphorus level 10/05/2019 Due to malnutrition as noted above. K-Phos is ordered. I will order recurrent laboratory studies. 10/06/2019 Continue K-Phos. Recheck in the morning. 10/07/2019 We will add phosphorus level to today's blood work. Continue potassium phosphate. Level ordered for the morning. 10/08/2019 Phosphorus still low. Add K-Phos (4) Carcinoma, lung Qualifiers: Laterality: left Qualified Code(s): C34.92 - Malignant neoplasm of unspecified part of left bronchus or lung Is this a current diagnosis for this admission?: Yes Plan: Defer to oncology. 10/05/2019 The patient is a patient of Dr. Chavez. I have placed a consult. 10/06/2019 I reviewed the case with Dr. Chavez. The patient has 4 more infusions of immunotherapy as he has only had 2 up to this point. He will receive those as an outpatient. 10/07/2019 Patient reports that he is actually had 3 treatments already and has 3 to go. He reports an appointment with Dr. Chavez on Tuesday. They will likely repeat blood work and decide when the next infusion will be. 10/08/2019 Dr. Chavez to decide when the next infusion will be (5) General weakness Is this a current diagnosis for this admission?: Yes Plan: 10/05/2019 The patient complains of profound weakness. He admits it is likely related to his poor oral intake and the underlying malignancy. Hopefully if his appetite p icks up his strength should improve somewhat. 10/06/2019 It is still early but with his improved appetite the patient is likely to not feel as weak. Physical therapy will be seeing the patient. 10/07/2019 The patient has been very robust lately. You can tell he is not feeling as weak. His appetite is improved. He was very demonstrative about wanting to fight his cancer. 10/08/2019 Improving daily (6) Pyelonephritis due to Escherichia coli Is this a current diagnosis for this admission?: Yes Plan: Complicated by nephrolithiasis, mild hydronephrosis, IV fluid challenge in an attempt to dislodge 4 mm stone, follow-up CT stone study if without significant improvement in 48 hours. Rocephin initiated for E. coli sensitivity on urine culture of September 29, 2019 follow-up CBC and urine culture 10/05/2019 As noted above the patient had a recent urine culture submitted on September 28. On identification and sensitivities usually available 48 hours after. A pansensitive E. coli was identified. The patient is currently on Rocephin. 10/06/2019 Continue antibiotics. 10/07/2019 Antibiotics through October 10. Urine culture prior to admission showed the E. coli noted above. With a plan to discharge tomorrow the patient will finish antibiotic therapy as an outpatient. (7) Malnutrition Qualifiers: Malnutrition type: protein-calorie malnutrition Is this a current diagnosis for this admission?: Yes Plan: 10/05/2019 The patient reports that his appetite is been very poor. This is due to the malignancy. I will asked the registered dietitian to offer suggestions however the patient's appetite is still poor. I will start with supplements if the patient is willing to try. 10/06/2019 The patient states that he has done very well with his meals since being admitted. Consult has been placed with the dietitian as well. 10/07/2019 Due to the anticipated short length of stay monitoring body weight, albumin, protein and other serum chemistry markers would not be meaningful. Unable to determine the level of malnutrition at this point. Awaiting dietitian consult. The patient's appetite has improved significantly however and so this is being corrected. - Time Time Spent with patient: Less than 15 minutes Medications reviewed and adjusted accordingly: Yes Anticipated discharge: Home Within: within 24 hours
[2019-10-08] MEDS: PHOSPHORUS #1 250 MG TABLET PO SCH (17:13)
[2019-10-08] MEDS: CEFTRIAXONE 1 GM/D5W RTU 1 GM/50 ML RTUPB IV SCH (17:14)
[2019-10-09] MEDS: HEPARIN SOD (PORCINE) 5,000 UNIT/ML 1 ML VIAL SUBCUT SCH (05:45)
[2019-10-09] MEDS: PHENAZOPYRIDINE HCL 200 MG TABLET PO SCH (05:54)
[2019-10-09] MEDS: MAGNESIUM OXIDE 400 MG TABLET PO SCH ×2 (08:38→11:47)
[2019-10-09] MEDS: PHOSPHORUS #1 250 MG TABLET PO SCH ×2 (08:38→11:46)
[2019-10-09] MEDS: IPRATROPIUM/ALBUTEROL 0.5-2.5 MG/3 ML AMPUL NEB SCH (09:37)
[2019-10-09] MEDS: DOCUSATE SODIUM 100 MG CAPSULE PO SCH (11:45)
[2019-10-09] MEDS: HYDROCHLOROTHIAZIDE 25 MG TABLET PO SCH (11:46)
[2019-10-09] MEDS: POTASSIUM CHLORIDE 10 MEQ TABLET.ER PO SCH (11:47)
[2019-10-09] MEDS: MEGESTROL ACETATE 20 MG TABLET PO SCH (11:47)
[2019-10-09] MEDS: THIAMINE HCL 100 MG TABLET PO SCH (11:48)
[2019-10-09] MEDS: NICOTINE 14 MG/24 HR PATCH.TD24 TD SCH (11:48)
[2019-10-09] MEDS: LISINOPRIL 10 MG TABLET PO SCH (11:48)
--- NOTE | 2019-10-09 12:38 | PDOC DISCHARGE SUMMARY ---
Impression - Admit/DC Date/PCP Admission Date/Primary Care Provider: 10/04/19 19:42 GRETA CEDILLO PA-C Discharge Date: 10/09/19 - Assessment Summary: 54 year old male with a past medical history of COPD, lung cancer undergoing chemotherapy with Dr. Mcgee, anemia, lower extremity DVT, alcohol and tobacco dependence. He presents with generalized weakness. In the emergency department he is found to have pancytopenia, hypomagnesemia, hypophosphatemia, and positive urine culture for E. coli resulting from [address] reveals mild left-sided hydro-nephrosis with a 4 mm stone and pyelonephritis without abscess. He started on Rocephin given high sensitivity to cultured E. coli, IV fluid challenge and referred to the hospitalist for admission. Patient admits to poor appetite, living alone without access to food. 54-year-old male with multiple medical problems admitted with pancytopenia, electrolyte abnormalities and urine culture was positive prior to admission. Pansensitive. Afebrile blood cultures are negative here in the hospital. Patient is advised to continue cefdinir at home. He was also advised to follow- up with primary care physician in the next few days. Oncology consult was done during the hospital stay because of pancytopenia. - Additional Information Resuscitation Status: Do Not Resuscitate Discharge Diet: Cardiac Discharge Activity: Activity As Tolerated Referrals: ULICES MCGEE MD [ACTIVE STAFF] - 10/10/19 9:30 am Home Medications: Cefdinir 300 mg PO BID #20 capsule 09/29/19 Phenazopyridine HCl [Pyridium 200 mg Tablet] 200 mg PO TID #15 tablet 09/29/19 Lisinopril/Hydrochlorothiazide [Lisinopril-Hctz 20-25 mg Tab] 1 each PO DAILY 10/05/19 Potassium Chloride 40 meq PO DAILY 10/05/19 Thiamine HCl [B-1] 100 mg PO DAILY 10/05/19 Megestrol Acetate [Megace 20 mg Tablet] 20 mg PO DAILY tablet 10/09/19 History of Present Illiness History of Present Illness: Mikael WHEATLEY II is a 54 year old male 54 year old male with a past medical history of COPD, lung cancer undergoing c hemotherapy with Dr. Mcgee, anemia, lower extremity DVT, alcohol and tobacco dependence. He presents with generalized weakness. In the emergency department he is found to have pancytopenia, hypomagnesemia, hypophosphatemia, and positive urine culture for E. coli resulting from [address] reveals mild left-sided hydro-nephrosis with a 4 mm stone and pyelonephritis without abscess. He star kelli on Rocephin given high sensitivity to cultured E. coli, IV fluid challenge and referred to the hospitalist for admission. Patient admits to poor appetite, living alone without access to food. Hospital Course Hospital Course: 54 year old male with a past medical history of COPD, lung cancer undergoing chemotherapy with Dr. Mcgee, anemia, lower extremity DVT, alcohol and tobacco dependence. He presents with generalized weakness. In the emergency department he is found to have pancytopenia, hypomagnesemia, hypophosphatemia, and positive urine culture for E. coli resulting from [address] reveals mild left-sided hydro-nephrosis with a 4 mm stone and pyelonephritis without abscess. He started on Rocephin given high sensitivity to cultured E. coli, IV fluid challenge and referred to the hospitalist for admission. Patient admits to poor appetite, living alone without access to food. 10/04-Patient appears to be comfortable. He did 80s breakfast which he was surprised that because his appetite has been extremely poor. He still feels very very weak. 10/05-Patient is feeling somewhat better. Dr. Mcgee was in visiting the patient just prior to my visit. He is requesting a nicotine patch. Dr. Mcgee also informed me that the patient is now DNR. 10/06-The patient is feeling very good today. He has been up to the bathroom. He states that he ate a good breakfast. 10/07 The patient is feeling good. Dr. Mcgee saw him earlier. The plan is discharge tomorrow on oral antibiotics to complete his course of therapy. 10/10/2019-comfortably in the bed communicating well expressing desire to go home today. Patient is advised to continue cefdinir at home. He was found to be positive for E. coli in urine which is pansensitive. Physical Exam Vital Signs: Temp Pulse Resp BP Pulse Ox 97.8 F 83 17 117/76 97 10/09/19 11:56 10/09/19 11:56 10/09/19 11:56 10/09/19 11:56 10/09/19 11:56 Intake & Output 10/08/19 10/09/19 10/10/19 06:59 06:59 06:59 Intake Total 2570 1460 Balance 2570 1460 Weight 64.4 kg 64.2 kg General appearance: PRESENT: no acute distress, well-developed Head exam: PRESENT: atraumatic Eye exam: PRESENT: PERRLA Mouth exam: PRESENT: moist, tongue midline Neck exam: ABSENT: carotid bruit, JVD, lymphadenopathy, thyromegaly Respiratory exam: PRESENT: decreased breath sounds Cardiovascular exam: PRESENT: RRR. ABSENT: diastolic murmur, rubs, systolic murmur Pulses: PRESENT: normal dorsalis pedis pul GI/Abdominal exam: PRESENT: normal bowel sounds, soft. ABSENT: distended, guarding, mass, organolmegaly, rebound, tenderness Rectal exam: PRESENT: deferred Gentrourinary exam: PRESENT: indwelling catheter Neurological exam: PRESENT: alert, awake, oriented to person, oriented to place, oriented to time, oriented to situation, CN II-XII grossly intact. ABSENT: motor sensory deficit Psychiatric exam: PRESENT: appropriate affect, normal mood. ABSENT: homicidal ideation, suicidal ideation Results Laboratory Results: WBC 3.2 10^3/uL (4.0-10.5) L 10/08/19 05:04 RBC 2.27 10^6/uL (4.35-5.55) L 10/08/19 05:04 Hgb 8.8 g/dL (13.5-17.0) L 10/08/19 05:04 Hct 24.7 % (37.9-51.0) L 10/08/19 05:04 MCV 109 fl (80-97) H 10/08/19 05:04 MCH 38.6 pg (27.0-33.4) H 10/08/19 05:04 MCHC 35.5 g/dL (32.0-36.0) 10/08/19 05:04 RDW 28.1 % (11.5-14.0) H 10/08/19 05:04 Plt Count 88 10^3/uL (150-450) L 10/08/19 05:04 Lymph % (Auto) 12.7 % (13-45) L 10/08/19 05:04 [place] % (Auto) 7.6 % (3-13) 10/08/19 05:04 Eos % (Auto) 2.4 % (0-6) 10/08/19 05:04 Baso % (Auto) 0.9 % (0-2) 10/08/19 05:04 Reticulocyte # 0.010 10^6/uL (0.028-0.122) L 10/04/19 21:43 Absolute Neuts (auto) 2.5 10^3/uL (1.7-8.2) 10/08/19 05:04 Absolute Lymphs (auto) 0.4 10^3/uL (0.5-4.7) L 10/08/19 05:04 Absolute Monos (auto) 0.2 10^3/uL (0.1-1.4) 10/08/19 05:04 Absolute Eos (auto) 0.1 10^3/uL (0.0-0.6) 10/08/19 05:04 Absolute Basos (auto) 0.0 10^3/uL (0.0-0.2) 10/08/19 05:04 Total Counted 100 10/07/19 03:28 Seg Neutrophils % 76.4 % (42-78) 10/08/19 05:04 Seg Neuts % (Manual) 82 % (42-78) H 10/07/19 03:28 Lymphocytes % (Manual) 16 % (13-45) 10/07/19 03:28 Monocytes % (Manual) 2 % (3-13) L 10/07/19 03:28 Eosinophils % (Manual) 0 % (0-6) 10/07/19 03:28 Basophils % (Manual) 0 % (0-2) 10/07/19 03:28 Abs Neuts (Manual) 2.4 10^3/uL (1.7-8.2) 10/07/19 03:28 Abs Lymphs (Manual) 0.5 10^3/uL (0.5-4.7) 10/07/19 03:28 Abs Monocytes (Manual) 0.1 10^3/uL (0.1-1.4) 10/07/19 03:28 Absolute Eos (Manual) 0.0 10^3/uL (0.0-0.6) 10/07/19 03:28 Abs Basophils (Manual) 0.0 10^3/uL (0.0-0.2) 10/07/19 03:28 Toxic Granulation 1+ 10/07/19 03:28 Toxic Vacuolation PRESENT 10/06/19 13:35 Platelet Comment DECREASED 10/08/19 05:04 Poikilocytosis 1+ 10/08/19 05:04 Anisocytosis 4+ 10/08/19 05:04 Macrocytosis 2+ 10/08/19 05:04 Tear Drop Cells SLIGHT 10/07/19 03:28 Ovalocytes 1+ 10/08/19 05:04 [place] Cells SLIGHT 10/07/19 03:28 Schistocytes SLIGHT 10/06/19 13:35 Retic Count (auto) 0.50 % (0.66-2.85) L 10/04/19 21:43 APTT 31.8 SEC (23.5-35.8) 10/06/19 15:30 Fibrinogen 461 mg/dL (209-497) 10/06/19 15:30 Sodium 134.5 mmol/L (137-145) L 10/08/19 05:04 Potassium 4.0 mmol/L (3.6-5.0) 10/08/19 05:04 Chloride 105 mmol/L (98-107) 10/08/19 05:04 Carbon Dioxide 24 mmol/L (22-30) 10/08/19 05:04 Anion Gap 6 (5-19) 10/08/19 05:04 BUN 26 mg/dL (7-20) H 10/08/19 05:04 Creatinine 1.06 mg/dL (0.52-1.25) 10/08/19 05:04 Est GFR ( Amer) > 60 (>60) 10/08/19 05:04 Est GFR (MDRD) Non-Af > 60 (>60) 10/08/19 05:04 Glucose 90 mg/dL (75-110) 10/08/19 05:04 Lactic Acid 0.9 mmol/L (0.7-2.1) 10/05/19 00:30 Calcium 7.8 mg/dL (8.4-10.2) L 10/08/19 05:04 Phosphorus 2.2 mg/dL (2.5-4.5) L 10/08/19 05:04 Magnesium 1.6 mg/dL (1.6-2.3) 10/08/19 05:04 Iron 64.5 ug/dL (49-181) 10/04/19 21:43 TIBC 204 ug/dL (250-450) L 10/04/19 21:43 % Saturation 32 % 10/04/19 21:43 Transferrin 141.84 mg/dL (206.00-381.00) L 10/04/19 21:43 Ferritin 599.00 ng/mL (17.9-464.0) H 10/04/19 21:43 Total Bilirubin 0.9 mg/dL (0.2-1.3) 10/04/19 17:45 Direct Bilirubin 0.0 mg/dL (0.0-0.4) 10/04/19 17:45 Neonat Total Bilirubin Not Reportable 10/04/19 17:45 Neonat Direct Bilirubin Not Reportable 10/04/19 17:45 Neonat Indirect Bili Not Reportable 10/04/19 17:45 AST 48 U/L (17-59) 10/04/19 17:45 ALT 17 U/L (<50) 10/04/19 17:45 Alkaline Phosphatase 84 U/L (38-126) 10/04/19 17:45 Creatine Kinase 26 U/L (55-170) L 10/04/19 17:45 CK-MB (CK-2) 0.26 ng/mL (<4.55) 10/04/19 17:45 Troponin I 0.057 ng/mL 10/04/19 17:45 Total Protein 6.5 g/dL (6.3-8.2) 10/04/19 17:45 Albumin 3.2 g/dL (3.5-5.0) L 10/04/19 17:45 Vitamin B12 486.0 pg/mL (239-931) 10/04/19 21:43 Folate 1.62 ng/mL (>2.76) L 10/04/19 21:43 Urine Color JINA 10/04/19 19:10 Urine Appearance CLEAR 10/04/19 19:10 Urine pH 5.0 (5.0-9.0) 10/04/19 19:10 Ur Specific [place] 1.011 10/04/19 19:10 Urine Protein 30 mg/dL (NEGATIVE) H 10/04/19 19:10 Urine Glucose (UA) NEGATIVE mg/dL (NEGATIVE) 10/04/19 19:10 Urine Ketones NEGATIVE mg/dL (NEGATIVE) 10/04/19 19:10 Urine Blood SMALL (NEGATIVE) H 10/04/19 19:10 Urine Nitrite POSITIVE (NEGATIVE) H 10/04/19 19:10 Urine Bilirubin NEGATIVE (NEGATIVE) 10/04/19 19:10 Urine Urobilinogen 4.0 mg/dL (<2.0) H 10/04/19 19:10 Ur Leukocyte Esterase NEGATIVE (NEGATIVE) 10/04/19 19:10 Urine WBC (Auto) 7 /HPF 10/04/19 19:10 Urine RBC (Auto) 2 /HPF 10/04/19 19:10 U Hyaline Cast (Auto) 1 /LPF 10/04/19 19:10 Urine Bacteria (Auto) TRACE /HPF 10/04/19 19:10 Squamous Epi Cells Auto <1 /HPF 10/04/19 19:10 Urine Mucus (Auto) RARE /LPF 10/04/19 19:10 Urine Ascorbic Acid NEGATIVE (NEGATIVE) 10/04/19 19:10 Stool Occult Blood NEGATIVE (NEGATIVE) 10/06/19 16:20 Blood Type A NEGATIVE 10/06/19 15:30 Antibody Screen NEGATIVE 10/06/19 15:30 Crossmatch See Detail 10/06/19 15:30 10/04/19 17:45 CK-MB (CK-2) 0.26 Troponin I 0.057 Impressions: Abdomen/Pelvis CT 10/04/19 17:53 IMPRESSION: 1. Mild left hydroureter secondary to a 4 mm calculus in the distal left ureter as described. 2. Multiple intrarenal calculi on each side. 3. Cholelithiasis. Plan Plan of Treatment: Patient is advised to continue cefdinir to follow-up with primary care physician in the next few days. Time Spent: Greater than 30 Minutes Stroke Is this a Stroke Patient?: No Acute Heart Failure - Is this a Heart Failure Patient?: No
[2019-10-09 12:40] VITALS: BP 158/86
== END 2019-10-09 13:45 | disposition home health service (06) | DRG 690 ==
LOC: ER 17:00 → EH 19:42 → 4W 22:23
PROVIDERS: ADMIT Internal Medicine; ATTEND Internal Medicine
PROC: 30233N1 Transfusion of Nonautologous Red Blood Cells into Peripheral Vein, Percutaneous Approach (ICD-10-PCS; principal; 2019-10-06)
DX: N13.6 Pyonephrosis (principal); C34.92 Malignant neoplasm of unspecified part of left bronchus or lung; D61.818 Other pancytopenia; E46 Unspecified protein-calorie malnutrition; Z68.1 Body mass index [BMI] 19.9 or less, adult; B96.20 Unspecified Escherichia coli [E. coli] as the cause of diseases classified elsewhere; I73.9 Peripheral vascular disease, unspecified; K21.9 Gastro-esophageal reflux disease without esophagitis; F17.210 Nicotine dependence, cigarettes, uncomplicated; E83.42 Hypomagnesemia; E83.39 Other disorders of phosphorus metabolism; Z66 Do not resuscitate; Z88.0 Allergy status to penicillin; Z86.718 Personal history of other venous thrombosis and embolism; Z79.899 Other long term (current) drug therapy; F10.20 Alcohol dependence, uncomplicated; Z60.2 Problems related to living alone
CPT/HCPCS: 36415; 36430; 74176; 80048; 80053; 81001; 82272; 82550; 82553; 82607; 82728; 82746; 83540; 83550; 83605; 83735; 84100; 84466; 84484; 85025; 85045; 85384; 85730; 86850; 86900; 86901; 86920; 87040; 93005; 93010; 99285; J0696; J3475; J3490; J7030; J7620; P9016

== ENCOUNTER 2019-10-22 14:13 | Emergency (ER) | payer MEDICARE ==
--- NOTE | 2019-10-22 15:46 | ER Document Report ---
ED Medical Screen (RME) - General Chief Complaint: General Weakness Stated Complaint: WEAKNESS Primary Care Provider: GRETA CEDILLO PA-C [Primary Care Provider] - Follow up as needed Notes: 54-year-old male with past medical history of malnutrition, hypokalemia, hypocalcemia presents today with generalized weakness and fatigue for many months. Also reports he has had a cough for 2 months and has been coughing up some blood. States he is extremely fatigued going from his living room to the bathroom. States he does have nonbloody diarrhea. Denies any fevers, chills, headache, shortness of breath, chest pain. I have greeted and performed a rapid initial assessment of this patient. A comprehesive ED assessment and evaluation of this patient, analysis of test results and completion of the medical decision-making process will be conducted by additional ED providers. TRAVEL OUTSIDE OF THE [place] IN LAST 30 DAYS: No - Related Data Allergies/Adverse Reactions: Penicillins Allergy (Verified 09/20/18 11:13) Past Medical History - Social History Cigarette use (# per day): Yes Family history: Reviewed & Not Pertinent - Past Medical History Cardiac Medical History: Reports: Hx DVT, Hx Hypertension, Hx Peripheral Vascular Disease Denies: Hx Congestive Heart Failure, Hx Heart Attack Pulmonary Medical History: Reports: Hx Pneumonia Denies: Hx Asthma, Hx Bronchitis, Hx COPD, Hx Tuberculosis Neurological Medical History: Denies: Hx Migraine, Hx Seizures, Hx Parkinson's Disease Endocrine Medical History: Denies: Hx Diabetes Mellitus Type 2, Hx Hyperth yroidism, Hx Hypothyroidism Renal/ Medical History: Denies: Hx Benign Prostatic Hyperplasia, Hx End Stage Renal Disease, Hx Kidney Stones, Hx Peritoneal Dialysis Malignancy Medical History: Reports Hx Lung Cancer GI Medical History: Reports: Hx Gastroesophageal Reflux Disease. Denies: Hx Cirrhosis Musculoskeltal Medical History: Denies Hx Arthritis, Denies Hx Multiple Sclerosis Psychiatric Medical History: Denies: Hx Bipolar Disorder, Hx Depression, Hx Schizophrenia Traumatic Medical History: Denies: Hx Gunshot Wound, Hx Traumatic Brain Injury Past Surgical History: Reports: Other - Bronchoscopy x2 - Immunizations Hx Diphtheria, Pertussis, Tetanus Vaccination: Yes Review of Systems - Review of Systems Constitutional: See HPI EENT: No symptoms reported Cardiovascular: No symptoms reported Respiratory: See HPI Gastrointestinal: See HPI Genitourinary: No symptoms reported Male Genitourinary: No symptoms reported Musculoskeletal: No symptoms reported Skin: No symptoms reported Physical Exam - Vital signs Vitals: Temp Pulse Resp BP Pulse Ox 97.7 F 105 H 14 159/88 H 99 10/22/19 14:16 10/22/19 14:16 10/22/19 14:16 10/22/19 14:16 10/22/19 14:16 - Notes Notes: Patient is in no acute distress. Lungs are clear to auscultation bilaterally, no wheezes rhonchi or rales. Heart regular rate rhythm no murmurs rubs or gallops. Course - Vital Signs Vital signs: Temp Pulse Resp BP Pulse Ox 97.7 F 105 H 14 159/88 H 99 10/22/19 14:16 10/22/19 14:16 10/22/19 14:16 10/22/19 14:16 10/22/19 14:16 Doctor's Discharge - Discharge Referrals: GRETA CEDILLO PA-C [Primary Care Provider] - Follow up as needed
--- NOTE | 2019-10-22 16:18 | RADIOLOGY REPORT (SQ) ---
EXAM DESCRIPTION: CHEST SINGLE VIEW IMAGES COMPLETED DATE/TIME: 10/22/2019 4:07 pm REASON FOR STUDY: cough COMPARISON: 09/20/2018 EXAM PARAMETERS: NUMBER OF VIEWS: One view. TECHNIQUE: Single frontal radiographic view of the chest acquired. RADIATION DOSE: NA LIMITATIONS: None. FINDINGS: LUNGS AND PLEURA: The left upper lobe cavitary mid mass is less opaque on today's study. Right perihilar mass now has surrounding airspace disease. No pneumothorax. Stable left apical pleu ral thickening. MEDIASTINUM AND HILAR STRUCTURES: No masses. Contour normal. HEART AND VASCULAR STRUCTURES: Heart normal in size. Normal vasculature. BONES: No acute findings. HARDWARE: None in the chest. OTHER: No other significant finding. IMPRESSION: Increasing right perihilar airspace disease. Left upper lobe cavitary mass appears impr sondra on today's film. TECHNICAL DOCUMENTATION: JOB ID: [id number] 2010 [email or web address] All Rights Reserved Reading location - IP/workstation name: [email or web address]
[2019-10-22 16:33] LABS: HEMATOCRIT 25.3 % (37.9-51.0); HEMOGLOBIN 8.7 g/dL (13.5-17.0); MEAN CORPUSCULAR HEMOGLOBIN 37.3 pg (27.0-33.4); MEAN CORPUSCULAR HGB CONC 34.2 g/dL (32.0-36.0); MEAN CORPUSCULAR VOLUME 109 fl (80-97); PLATELET COUNT 125 10^3/uL (150-450); RED BLOOD COUNT 2.32 10^6/uL (4.35-5.55)
[2019-10-22 16:50] LABS: ALBUMIN 3.8 g/dL (3.5-5.0); ALKALINE PHOSPHATASE 132 U/L (38-126); ANION GAP 9 (5-19); ASPARTATE AMINO TRANSFERASE 64 U/L (17-59); BILIRUBIN,TOTAL 0.4 mg/dL (0.2-1.3); BLOOD UREA NITROGEN 20 mg/dL (7-20); CALCIUM 8.3 mg/dL (8.4-10.2); CARBON DIOXIDE 15 mmol/L (22-30); CHLORIDE 110 mmol/L (98-107); GLUCOSE 91 mg/dL (75-110); POTASSIUM 4.3 mmol/L (3.6-5.0); TOTAL PROTEIN 7.5 g/dL (6.3-8.2)
[2019-10-22 17:03] LABS: ABSOLUTE LYMPHOCYTES# (MANUAL) 0.3 10^3/uL (0.5-4.7); ABSOLUTE MONOCYTES # (MANUAL) 0.3 10^3/uL (0.1-1.4); BASOPHILS % (MANUAL) 0 % (0-2); EOSINOPHILS % (MANUAL) 1 % (0-6); LYMPHOCYTES % (MANUAL) 7 % (13-45); MONOCYTES % (MANUAL) 8 % (3-13); PLATELET COMMENT DECREASED; SEGMENTED NEUTROPHILS % (MAN) 84 % (42-78); TOTAL CELLS COUNTED 100
[2019-10-22 17:05] LABS: FREE T4 (FREE THYROXINE) 1.42 ng/dL (0.78-2.19)
[2019-10-22 17:07] LABS: POLYCHROMASIA SLIGHT
[2019-10-22 17:08] LABS: OVALOCYTES SLIGHT; SCHISTOCYTES SLIGHT
[2019-10-22 17:19] LABS: THYROID STIMULATING HORMONE 1.39 uIU/mL (0.47-4.68)
--- NOTE | 2019-10-22 17:33 | EKG REPORT ---
SEVERITY:- NORMAL ECG - SINUS RHYTHM : Confirmed by: Sanam Talbot MD 22-Oct-2019 17:32:26
--- NOTE | 2019-10-22 18:13 | ER Document Report ---
ED General - General Chief Complaint: General Weakness Stated Complaint: WEAKNESS Time Seen by Provider: 10/22/19 18:12 Primary Care Provider: GRETA CEDILLO PA-C [Primary Care Provider] - Follow up as needed Notes: 10/22/19 15:44 - ED Nursing Note by ILANA KAN Ning Num: [id number] : 1965 Patient Age: 54 patient complains of feeling weak and fatigued for "a while" patient states well over a month. patient states for the past month he has been coughing up blood. patient states its not every day but this morning it was alot more and lumpy red. patient breaths e/u, nad [facility] [employer] notes 54-year-old male with past medical history of malnutrition, hypokalemia, hypoc alcemia presents today with generalized weakness and fatigue for many months. Also reports he has had a cough for 2 months and has been coughing up some blood. States he is extremely fatigued going from his living room to the bathroom. States he does have nonbloody diarrhea. Denies any fevers, chills, headache, shortness of breath, chest pain. my notes 54-year-old male advises he has had 4 weeks of severe weakness and also mild bloody cough today. His right perihilar mass with airspace disease and left upper lobe mass has improved according to radiologist. Patient reports he has been diagnosed with lung cancer for a few months now. He has been a continual smoker of 1-1/2 packs/day since he was 16 years old. Patient reports she has had blood in the past magnesium in the past vitamins in the past and still feels very weak. TRAVEL OUTSIDE OF THE [place] IN LAST 30 DAYS: No - HPI Onset: Other - x 3-4 weeks Onset/Duration: Gradual, Persistent, Worse Quality of pain: No pain Severity: None Pain Level: Denies Associated symptoms: Body/muscle aches, Nausea, Weakness Exacerbated by: Denies Relieved by: Denies Similar symptoms previously: Yes Recently seen / treated by doctor: No - Related Data Allergies/Adverse Reactions: Penicillins Allergy (Verified 09/20/18 11:13) Home Medications: lisinopril, xarelto Past Medical History - General Information source: Patient - Social History Smoking Status: Current Every Day Smoker Cigarette use (# per day): Yes Chew tobacco use (# tins/day): No Smoking Education Provided: Yes Frequency of alcohol use: Rare - bourbon Drug Abuse: None Lives with: Alone Family History: Hypertension, Malignancy - Mother with breast cancer Patient has suicidal ideation: No Patient has homicidal ideation: No - Past Medical History Cardiac Medical History: Reports: Hx DVT, Hx Hypertension, Hx Peripheral Vascular Disease Denies: Hx Congestive Heart Failure, Hx Heart Attack Pulmonary Medical History: Reports: Hx Pneumonia Denies: Hx Asthma, Hx Bronchitis, Hx COPD, Hx Tuberculosis Neurological Medical History: Denies: Hx Migraine, Hx Seizures, Hx Parkinson's Disease Endocrine Medical History: Denies: Hx Diabetes Mellitus Type 2, Hx Hyp erthyroidism, Hx Hypothyroidism Renal/ Medical History: Denies: Hx Benign Prostatic Hyperplasia, Hx End Stage Renal Disease, Hx Kidney Stones, Hx Peritoneal Dialysis Malignancy Medical History: Reports Hx Lung Cancer GI Medical History: Reports: Hx Gastroesophageal Reflux Disease. Denies: Hx Cirrhosis Musculoskeletal Medical History: Denies Hx Arthritis, Denies Hx Multiple Sclerosis Psychiatric Medical History: Denies: Hx Bipolar Disorder, Hx Depression, Hx Schizophrenia Traumatic Medical History: Denies: Hx Gunshot Wound, Hx Traumatic Brain Injury Past Surgical History: Reports: Other - Bronchoscopy x2 - Immunizations Hx Diphtheria, Pertussis, Tetanus Vaccination: Yes Review of Systems - Review of Systems Constitutional: See HPI, Malaise, Weakness EENT: No symptoms reported Cardiovascular: See HPI, Chest pain, Dizziness Respiratory: See HPI, Short of breath Gastrointestinal: No symptoms reported Genitourinary: No symptoms reported Male Genitourinary: No symptoms reported Musculoskeletal: No symptoms reported Skin: No symptoms reported Hematologic/Lymphatic: No symptoms reported Neurological/Psychological: No symptoms reported Physical Exam - Vital signs Vitals: Temp Pulse Resp BP Pulse Ox 97.7 F 105 H 14 159/88 H 99 10/22/19 14:16 10/22/19 14:16 10/22/19 14:16 10/22/19 14:16 10/22/19 14:16 Interpretation: Hypertensive, Tachycardic - General General appearance: Alert - HEENT Head: Normocephalic, Atraumatic Eyes: Normal Pupils: PERRL Mouth/Lips: Normal Mucous membranes: Dry Pharynx: Normal Neck: Normal - Respiratory Respiratory status: No respiratory distress Chest status: Nontender Breath sounds: Normal Chest palpation: Normal - Cardiovascular Rhythm: Tachycardia Heart sounds: Normal auscultation Murmur: No - Abdominal Inspection: Normal - Rectal Hemorrhoids: Other - deferred - Genitourinary Tenderness: Other - deferred - Back Back: Normal - Extremities General upper extremity: Normal inspection, Nontender, Normal color, Normal ROM, Normal temperature General lower extremity: Edema - Patient reports he has had a lifelong stasis dermatitis and has leathery appearance to his lower extremities, Normal color, Normal ROM. No: Abner's sign - Neurological Neuro grossly intact: Yes Cognition: Normal Orientation: AAOx4 Elaine Coma Scale Eye Opening: Spontaneous [place] Coma Scale Verbal: Oriented Elaine Coma Scale Motor: Obeys Commands Elaine Coma Scale Total: 15 Speech: Normal Motor strength normal: LUE, RUE, LLE, RLE Sensory: Normal - Psychological Associated symptoms: Normal affect - Skin Skin Temperature: Warm Skin Turgor: Tenting Course - Vital Signs Vital signs: Temp Pulse Resp BP Pulse Ox 97.7 F 105 H 14 159/88 H 99 10/22/19 15:43 10/22/19 14:16 10/22/19 14:16 10/22/19 14:16 10/22/19 14:16 - Laboratory Result Diagrams: 10/22/19 15:56 10/22/19 15:56 Laboratory results interpreted by me: 10/22/19 10/22/19 10/22/19 15:56 15:56 20:23 RBC 2.32 L Hgb 8.7 L Hct 25.3 L MCV 109 H MCH 37.3 H RDW 25.0 H Plt Count 125 L Seg Neuts % (Manual) 84 H Lymphocytes % (Manual) 7 L Abs Lymphs (Manual) 0.3 L Sodium 133.9 L Chloride 110 H Carbon Dioxide 15 L Calcium 8.3 L Magnesium 1.3 L AST 64 H Alkaline Phosphatase 132 H Crossmatch See Detail - Diagnostic Test Radiology reviewed: Reports reviewed Radiology results interpreted by me: 10/22/19 18:23 r perihilar mass with air space dz;l upper lobe mass improved per radiology Critical Care Note - Critical Care Note Total time excluding time spent on procedures (mins): 60 Discharge - Discharge Clinical Impression: Consolidation of left upper lobe of lung, Mass of right lung, Pernicious anemia Carcinoma, lung Qualifiers: Laterality: unspecified laterality Qualified Code(s): C34.90 - Malignant neop lasm of unspecified part of unspecified bronchus or lung Anemia Qualifiers: Anemia type: unspecified type Qualified Code(s): D64.9 - Anemia, unspecified Condition: Good Disposition: HOME, SELF-CARE Additional Instructions: Follow-up with personal doctor ; return to ER as needed ;take medicines as directed ; encourage fluids Prescriptions: Cyanocobalamin/Cobamamide [B-12 5,000 Mcg Sublingual Tab] 1 each SL DAILY 30 D ays #30 [email or web address] Referrals: GRETA CEDILLO PA-C [Primary Care Provider] - Follow up as needed
[2019-10-22] MEDS ORDERED: DEXAMETHASONE SOD PHOS INJ 10 MG/1 ML VIAL IV ONE (19:45)
[2019-10-22] MEDS ORDERED: NORMAL SALINE 250 ML IV PRN ×2 (19:50)
[2019-10-22] MEDS ORDERED: THIAMINE HCL 100 MG, FOLIC ACID 1 MG in NORMAL SALINE 250 ML IV ONE (19:53)
[2019-10-23 04:00] VITALS: BP 170/90
== END 2019-10-23 04:45 | disposition home or self-care (01) ==
LOC: ER 14:13
DX: D51.0 Vitamin B12 deficiency anemia due to intrinsic factor deficiency (principal); J18.1 Lobar pneumonia, unspecified organism; C34.90 Malignant neoplasm of unspecified part of unspecified bronchus or lung; R91.8 Other nonspecific abnormal finding of lung field; R53.83 Other fatigue; R53.1 Weakness; R04.2 Hemoptysis; M79.10 Myalgia, unspecified site; R53.81 Other malaise; R07.9 Chest pain, unspecified; R42 Dizziness and giddiness; R00.0 Tachycardia, unspecified; F17.210 Nicotine dependence, cigarettes, uncomplicated; I10 Essential (primary) hypertension; E11.51 Type 2 diabetes mellitus with diabetic peripheral angiopathy without gangrene; Z79.01 Long term (current) use of anticoagulants; Z79.899 Other long term (current) drug therapy; Z88.0 Allergy status to penicillin
CPT/HCPCS: 93005; 99291; 96374; 96375; 86900; 86901; 36415; 84439; 36430; 86850; 83735; 84443; 85025; 80053; 86920; 71045; 93010; P9016; J3490; J3411; J7050; J1100

== ENCOUNTER 2019-10-31 14:14 | Emergency (ER) | payer MEDICARE ==
[2019-10-31] MEDS ORDERED: HYDROCODONE/ACETAMINOPHEN 10-325 MG TABLET PO ONE (15:48)
--- NOTE | 2019-10-31 16:02 | ER Document Report ---
ED Medical Screen (RME) - General Mode of Arrival: Medic Information source: Patient TRAVEL OUTSIDE OF THE U.S. IN LAST 30 DAYS: No <MIGUEL JEAN-BAPTISTE - Last Filed: 10/31/19 15:48> <NARENDRA STEPHENS JR - Last Filed: 10/31/19 16:58> - General Chief Complaint: Back Pain Stated Complaint: LEFT HIP PAIN Time Seen by Provider: 10/31/19 15:35 Primary Care Provider: ULICES MCGEE MD [ACTIVE STAFF] - Follow up as needed - [facility] Notes: 10/31/19 16:04 54 yr old male history of lung cancer, malnutrition presents to the ER via EMS for c/o of sudden onset lbp and left hip pain that started 3 days ago while he was resting. Denies any trauma, no falls. Patient states pain is 5 out of 5 to his lumbar spine and his left hip. Has tried BenGay and Tylenol without relief. Urinating without any issues, states he has not had a bowel movement in 3 days. Denies any bowel dysfunction, no bladder dysfunction, no saddle anesthesia. Denies any fevers or chills. Pain started at 3 PM Tuesday afternoon. Denies any rashes. Patient came to the emergency room because the pain was so severe. He is followed by Dr. Dr. Clark. Denies any chest pain shortness of breath, nausea vomiting or diarrhea I have greeted and performed a rapid initial assessment of this patient. A comprehensive ED assessment and evaluation of the patient, analysis of test results and completion of the medical decision making process will be conducted by additional ED providers. PHYSICAL EXAMINATION: GENERAL: chronically ill, malnourish, and in no acute distress. HEAD: Atraumatic, normocephalic. Musculoskeletal: Normal range of motion. left hip pain on palpation, lumbar spine pain on palpation. NEUROLOGICAL: Normal speech, normal gait. SKIN: Warm, Dry, normal turgor, no rashes or lesions noted. (MIGUEL JEAN-BAPTISTE) - Related Data Allergies/Adverse Reactions: Penicillins Allergy (Verified 09/20/18 11:13) Past Medical History - Social History Family history: Reviewed & Not Pertinent - Past Medical History Cardiac Medical History: Reports: Hx DVT, Hx Hypertension, Hx Peripheral Vascular Disease Denies: Hx Congestive Heart Failure, Hx Heart Attack Pulmonary Medical History: Reports: Hx Pneumonia Denies: Hx Asthma, Hx Bronchitis, Hx COPD, Hx Tuberculosis Neurological Medical History: Denies: Hx Migraine, Hx Seizures, Hx Parkinson's Disease Endocrine Medical History: Denies: Hx Diabetes Mellitus Type 2, Hx Hyperthyroidism, Hx Hypothyroidism Renal/ Medical History: Denies: Hx Benign Prostatic Hyperplasia, Hx End Stage Renal Disease, Hx Kidney Stones, Hx Peritoneal Dialysis Malignancy Medical History: Reports Hx Lung Cancer GI Medical History: Reports: Hx Gastroesophageal Reflux Disease. Denies: Hx Cirrhosis Musculoskeltal Medical History: Denies Hx Arthritis, Denies Hx Multiple Sclerosis Psychiatric Medical History: Denies: Hx Bipolar Disorder, Hx Depression, Hx Schizophrenia Traumatic Medical History: Denies: Hx Gunshot Wound, Hx Traumatic Brain Injury Past Surgical History: Reports: Other - Bronchoscopy x2 - Immunizations Hx Diphtheria, Pertussis, Tetanus Vaccination: Yes <MIGUEL JEAN-BAPTISTE - Last Filed: 10/31/19 15:48> Physical Exam - Vital signs Vitals: Temp Pulse Resp BP Pulse Ox 98.4 F 74 18 158/99 H 99 10/31/19 14:51 10/31/19 14:51 10/31/19 14:51 10/31/19 14:51 10/31/19 14:51 Course - Laboratory Result Diagrams: 10/31/19 16:25 10/31/19 16:25 <NARENDRA STEPHENS JR - Last Filed: 10/31/19 16:58> - Vital Signs Vital signs: Temp Pulse Resp BP Pulse Ox 98.4 F 74 18 158/99 H 99 10/31/19 14:51 10/31/19 14:51 10/31/19 14:51 10/31/19 14:51 10/31/19 14:51 Doctor's Discharge <MIGUEL JEAN-BAPTISTE - Last Filed: 10/31/19 15:48> <NARENDRA STEPHENS JR - Last Filed: 10/31/19 16:58> - Discharge Referrals: ULICES MCGEE MD [ACTIVE STAFF] - Follow up as needed
--- NOTE | 2019-10-31 16:13 | RADIOLOGY REPORT (SQ) ---
EXAM DESCRIPTION: CT LUMBAR SPINE WITHOUT IMAGES COMPLETED DATE/TIME: 10/31/2019 4:03 pm REASON FOR STUDY: left hip pain x 3 days, no trauma, hx lung ca COMPARISON: 10/04/2019 TECHNIQUE: Axial images acquired through the lumbar spine without intravenous contrast. Images revi ewed with lung, soft tissue and bone windows. Reconstructed coronal and sagittal MPR images reviewed . All images stored on PACS. All CT scanners at this facility use dose modulation, iterative reconstruction, and/or weight based d osing when appropriate to reduce radiation dose to as low as reasonably achievable (ALARA). [facility]: Dose Right [facility]: CareDose [facility]: Dose Right [facility]: Teradose 4D [facility]: [employer] RADIATION DOSE: mGy. LIMITATIONS: None. FINDINGS: SEGMENTATION: Normal. No transitional anatomy. ALIGNMENT: Normal. VERTEBRAL BODIES: No fractures. No dislocation. No acute findings. DISCS: Mild disc protrusions are seen at all levels ; there does not appear to be any significant tho ral foraminal or central canal stenosis. PEDICLES, TRANSVERSE PROCESSES: No fractures. No dislocation. No acute findings. FACETS, POSTERIOR ELEMENTS: No fractures. No dislocation. No spinal stenosis. HARDWARE: None in the spine. VISUALIZED RIBS: No fractures. SOFT TISSUES: Nonobstructive nephrolithiasis and scattered retroperitoneal lymph nodes similar to anastasiia t seen on comparison imaging. OTHER: No other significant finding. IMPRESSION: Mild multilevel spondylotic changes. No suspicious lytic or blastic osseous lesions. N o acute findings. TECHNICAL DOCUMENTATION: JOB ID: [id number] Quality ID # [id number]: Final reports with documentation of one or more dose reduction techniques (e.g., Au tomated exposure control, adjustment of the mA and/or kV according to patient size, use of iterative reconstruction technique) 2010 [employer]- All Rights Reserved Reading location - IP/workstation name: [email or web address]
--- NOTE | 2019-10-31 16:31 | RADIOLOGY REPORT (SQ) ---
EXAM DESCRIPTION: HIP LEFT AP/LATERAL IMAGES COMPLETED DATE/TIME: 10/31/2019 4:14 pm REASON FOR STUDY: left hip pain x 3 days, no trauma, hx lung ca COMPARISON: None. NUMBER OF VIEWS: Two views. TECHNIQUE: AP pelvis and additional frog-leg view of the left hip. LIMITATIONS: None. FINDINGS: MINERALIZATION: Normal. LEFT HIP: No fracture or dislocation. No worrisome bone lesions. RIGHT HIP: No fracture or dislocation. No worrisome bone lesions. PUBIS AND ISCHIUM: No fracture. PELVIS: No fracture. SACRUM: No fracture or dislocation. No worrisome bone lesions. LOWER LUMBAR SPINE: No fracture or dislocation. No worrisome bone lesions. No significant disc disea se. SOFT TISSUES: Scattered calcific densities overlie pelvis. 5mm Left-sided density may represent prev iously-seen the left distal ureteral stone. OTHER: No other significant finding. IMPRESSION: 1. Negative study of the left hip and pelvis. No evidence of acute bony abnormality. No discrete lytic or blastic osseous lesions. 2. 5 mm Left-sided pelvic density may represent previously-seen left distal ureteral stone. TECHNICAL DOCUMENTATION: JOB ID: [id number] 2010 [employer]- All Rights Reserved Reading location - IP/workstation name: [email or web address]
[2019-10-31 16:57] LABS: HEMATOCRIT 30.9 % (37.9-51.0); HEMOGLOBIN 10.6 g/dL (13.5-17.0); MEAN CORPUSCULAR HEMOGLOBIN 34.9 pg (27.0-33.4); MEAN CORPUSCULAR HGB CONC 34.3 g/dL (32.0-36.0); PLATELET COUNT 105 10^3/uL (150-450); RED BLOOD COUNT 3.04 10^6/uL (4.35-5.55); WHITE BLOOD COUNT 10.1 10^3/uL (4.0-10.5)
--- NOTE | 2019-10-31 16:58 | ER Document Report ---
ED General Pain - General Chief Complaint: Back Pain Stated Complaint: LEFT HIP PAIN Time Seen by Provider: 10/31/19 15:35 Primary Care Provider: ULICES MCGEE MD [ACTIVE STAFF] - Follow up as needed Mode of Arrival: Medic Information source: Patient Notes: 10/31/19 15:34 - ED Nursing Note by JERARDO SANTOS Acct Num: [id number] : 1965 Patient Age: 54 Pt presents to the ED via EMS for c/o hip and back pain. Pt reports pain in his L hip and L-side back started 3 days ago that has progressively worsened. Report pain with movement and states he can hardly walk, that he shuffles and is very unstable. Pt states he was laying down Tuesday afternoon and pain came on suddenly out of nowhere. Reports utilizing icyhot, bengay, and Tylenol without relief. Pt also notes no BM x3days, denies any urinary issues or incontinence. Pt is A&Ox4, breaths e/u, NAD. Initialized on 10/31/19 15:34 - END OF NOTE [facility] notes 10/31/19 16:04 54 yr old male history of lung cancer, malnutrition presents to the ER via EMS for c/o of sudden onset lbp and left hip pain that started 3 days ago while he was resting. Denies any trauma, no falls. Patient states pain is 5 out of 5 to his lumbar spine and his left hip. Has tried BenGay and Tylenol without relief. Urinating without any issues, states he has not had a bowel movement in 3 days. Denies any bowel dysfunction, no bladder dysfunction, no saddle anesthesia. Denies any fevers or chills. Pain started at 3 PM Tuesday afternoon. Denies any rashes. Patient came to the emergency room because the pain was so severe. He is followed by Dr. Dr. Clark. Denies any chest pain shortness of breath, nausea vomiting or diarrhea my notes 54-year-old male arrives by EMS with chief complaint of 3-day left- sided hip left lower back pain that has progressively worsened. Patient reports he cannot bend at waist to pick anything up rotate to left or right because all of these motions induce a 8 out of 10 pain. He denies any trauma. He denies any cancer in his back. He does have a history of lung cancer. Patient reports he has no appetite for several days. He also advises he has had no bowel movement for 3 days. TRAVEL OUTSIDE OF THE [place] IN LAST 30 DAYS: No - HPI Onset: Other - x 3 days Onset/Duration: Sudden Quality of pain: Achy Severity: Severe Pain Level: 4 Context: New onset Typical of prior episodes of painful crisis: Yes - Related Data Allergies/Adverse Reactions: Penicillins Allergy (Verified 09/20/18 11:13) Past Medical History - General Information source: Patient - Social History Smoking Status: Current Every Day Smoker Cigarette use (# per day): Yes Chew tobacco use (# tins/day): No Smoking Education Provided: Yes Frequency of alcohol use: None Drug Abuse: None Lives with: Family Family History: Reviewed & Not Pertinent, Hypertension, Malignancy - Mother with breast cancer Patient has suicidal ideation: No Patient has homicidal ideation: No - Past Medical History Cardiac Medical History: Reports: Hx DVT, Hx Hypertension, Hx Peripheral Vascular Disease Denies: Hx Congestive Heart Failure, Hx Heart Attack Pulmonary Medical History: Reports: Hx Pneumonia Denies: Hx Asthma, Hx Bronchitis, Hx COPD, Hx Tuberculosis Neurological Medical History: Denies: Hx Migraine, Hx Seizures, Hx Parkinson's Disease Endocrine Medical History: Denies: Hx Diabetes Mellitus Type 2, Hx Hyperthyroidism, Hx Hypothyroidism Renal/ Medical History: Denies: Hx Benign Prostatic Hyperplasia, Hx End Stage Renal Disease, Hx Kidney Stones, Hx Peritoneal Dialysis Malignancy Medical History: Reports Hx Lung Cancer GI Medical History: Reports: Hx Gastroesophageal Reflux Disease. Denies: Hx Cirrhosis Musculoskeletal Medical History: Denies Hx Arthritis, Denies Hx Multiple Sclerosis Psychiatric Medical History: Denies: Hx Bipolar Disorder, Hx Depression, Hx Schizophrenia Traumatic Medical History: Denies: Hx Gunshot Wound, Hx Traumatic Brain Injury Past Surgical History: Reports: Other - Bronchoscopy x2 - Immunizations Hx Diphtheria, Pertussis, Tetanus Vaccination: Yes Review of Systems - Review of Systems Constitutional: See HPI, Weakness, Weight loss EENT: No symptoms reported Cardiovascular: No symptoms reported Respiratory: No symptoms reported Gastrointestinal: See HPI, Constipation, Poor appetite Genitourinary: No symptoms reported Male Genitourinary: No symptoms reported Musculoskeletal: See HPI, Back pain, Joint pain, Muscle pain Skin: No symptoms reported Hematologic/Lymphatic: No symptoms reported Neurological/Psychological: See HPI, Weakness, Gait changes Physical Exam - Vital signs Vitals: Temp Pulse Resp BP Pulse Ox 98.4 F 74 18 158/99 H 99 10/31/19 14:51 10/31/19 14:51 10/31/19 14:51 10/31/19 14:51 10/31/19 14:51 Interpretation: Hypertensive - General General appearance: Alert - HEENT Head: Normocephalic, Atraumatic Eyes: Normal Pupils: PERRL Mouth/Lips: Normal Mucous membranes: Normal Pharynx: Normal Neck: Normal - Respiratory Respiratory status: No respiratory distress Chest status: Nontender Breath sounds: Normal Chest palpation: Normal - Cardiovascular Rhythm: Tachycardia - 99 Heart sounds: Normal auscultation Murmur: No - Abdominal Inspection: Normal Distension: No distension Bowel sounds: Normal Tenderness: Nontender Organomegaly: No organomegaly - Rectal Hemorrhoids: Other - deferred - Genitourinary Scrotum: Other - deferred - Back Back: Tender - left midline and left SI - Extremities General upper extremity: Normal inspection, Nontender, Normal color, Normal ROM, Normal temperature General lower extremity: Tender - left hip, Normal color, Normal ROM. No: Abner's sign - Neurological Neuro grossly intact: Yes Cognition: Normal Orientation: AAOx4 [place] Coma Scale Eye Opening: Spontaneous Elaine Coma Scale Verbal: Oriented Elaine Coma Scale Motor: Obeys Commands [place] Coma Scale Total: 15 Speech: Normal Motor strength normal: LUE, RUE, LLE, RLE Sensory: Normal - Psychological Associated symptoms: Normal affect - Skin Skin Temperature: Warm Skin Moisture: Dry Skin Color: Normal Course - Vital Signs Vital signs: Temp Pulse Resp BP Pulse Ox 98.4 F 74 18 158/99 H 99 10/31/19 14:51 10/31/19 14:51 10/31/19 14:51 10/31/19 14:51 10/31/19 14:51 - Laboratory Result Diagrams: 10/31/19 16:25 10/31/19 16:25 Laboratory results interpreted by me: 10/31/19 10/31/19 16:25 16:25 RBC 3.04 L Hgb 10.6 L Hct 30.9 L MCV 102 H D MCH 34.9 H RDW 26.0 H Plt Count 105 L Seg Neuts % (Manual) 91 H Lymphocytes % (Manual) 1 L Abs Neuts (Manual) 9.2 H Abs Lymphs (Manual) 0.1 L Sodium 135.2 L Potassium 3.4 L Chloride 110 H Carbon Dioxide 17 L BUN 23 H Glucose 119 H Alkaline Phosphatase 219 H - Diagnostic Test Radiology reviewed: Reports reviewed Critical Care Note - Critical Care Note Total time excluding time spent on procedures (mins): 90 Discharge - Discharge Clinical Impression: Poor appetite Low back pain Qualifiers: Chronicity: acute Back pain laterality: left Sciatica presence: with sciatica Sciatica laterality: sciatica of left side Qualified Code(s): M54.42 - Lumbago with sciatica, left side Sciatica Qualifiers: Laterality: left Qualified Code(s): M54.32 - Sciatica, left side Constipation Qualifiers: Constipation type: unspecified constipation type Qualified Code(s): K59.00 - Constipation, unspecified Condition: Good Disposition: HOME, SELF-CARE Additional Instructions: Follow-up with personal doctor this week if symptoms continue or worsen and also may return to ER if symptoms worsen or continue. Take medicines as directed. Take Periactin to assess whether your appetite improves. Try to eat small amounts of ice cream with malted milk twice a day and take multi-B vitamins 1 tablet daily Prescriptions: Prednisone [Deltasone 20 mg Tablet] 2 tab PO DAILY 5 Days tablet Chlorzoxazone [Parafon Forte Dsc 500 Mg Tablet] 500 mg PO BID #20 tablet Cyproheptadine HCl [Periactin 4 Mg Tablet] 4 mg PO DAILY #10 tablet Referrals: ULICES MCGEE MD [ACTIVE STAFF] - Follow up as needed
[2019-10-31 17:09] LABS: ALBUMIN 3.7 g/dL (3.5-5.0); ALKALINE PHOSPHATASE 219 U/L (38-126); ANION GAP 8 (5-19); ASPARTATE AMINO TRANSFERASE 53 U/L (17-59); BILIRUBIN,DIRECT 0.1 mg/dL (0.0-0.4); BILIRUBIN,TOTAL 0.6 mg/dL (0.2-1.3); BLOOD UREA NITROGEN 23 mg/dL (7-20); CALCIUM 8.9 mg/dL (8.4-10.2); CARBON DIOXIDE 17 mmol/L (22-30); CHLORIDE 110 mmol/L (98-107); GLUCOSE 119 mg/dL (75-110); POTASSIUM 3.4 mmol/L (3.6-5.0); TOTAL PROTEIN 7.6 g/dL (6.3-8.2)
[2019-10-31 17:13] LABS: MEAN CORPUSCULAR VOLUME 102 fl (80-97)
[2019-10-31 17:17] LABS: ABSOLUTE LYMPHOCYTES# (MANUAL) 0.1 10^3/uL (0.5-4.7); ABSOLUTE MONOCYTES # (MANUAL) 0.8 10^3/uL (0.1-1.4); BASOPHILS % (MANUAL) 0 % (0-2); EOSINOPHILS % (MANUAL) 0 % (0-6); LYMPHOCYTES % (MANUAL) 1 % (13-45); MONOCYTES % (MANUAL) 8 % (3-13); SEGMENTED NEUTROPHILS % (MAN) 91 % (42-78); TOTAL CELLS COUNTED 100
[2019-10-31 17:18] LABS: ANISOCYTOSIS 3+; PLATELET CLUMPS PRESENT; PLATELET COMMENT DECREASED
[2019-10-31] MEDS ORDERED: FENTANYL CITRATE INJ/PF 100 MCG/2 ML AMPUL IV ONE (17:21)
[2019-10-31] MEDS ORDERED: CYANOCOBALAMIN (VITAMIN B-12) INJ 1000 MCG/1 ML VIAL IM ONE (17:22)
[2019-10-31] MEDS ORDERED: DEXAMETHASONE SOD PHOS INJ 10 MG/1 ML VIAL IV ONE (17:22)
[2019-10-31] MEDS ORDERED: METHOCARBAMOL INJ/PF 1000 MG/10 ML SDV IV ONE (17:22)
[2019-10-31] MEDS ORDERED: LACTULOSE SYRUP 20 GM/30 ML UDCUP PO ONE (17:23)
[2019-10-31] MEDS ORDERED: NORMAL SALINE 250 ML IV ONE (17:23)
[2019-10-31 20:41] VITALS: BP 165/87
== END 2019-10-31 20:41 | disposition home or self-care (01) ==
LOC: ER 14:14
DX: M54.42 Lumbago with sciatica, left side (principal); K59.00 Constipation, unspecified; M25.552 Pain in left hip; R63.0 Anorexia; F17.210 Nicotine dependence, cigarettes, uncomplicated
CPT/HCPCS: 99285; 96372; 96375; 96365; 36415; 85025; 80053; 73502; 72131; J3420; J3010; A9270 ×2; J2800; J7050; J1100

== ENCOUNTER 2019-11-05 02:36 | Emergency (ER) | payer MEDICARE ==
[2019-11-05 02:50] VITALS: BP 137/99
[2019-11-05] MEDS ORDERED: MORPHINE SULFATE 10 MG/ML INJ IV ONE (03:35)
[2019-11-05] MEDS ORDERED: ONDANSETRON HCL INJ/PF 4 MG/2 ML SDV IV ONE (03:35)
[2019-11-05] MEDS ORDERED: NORMAL SALINE 1000 ML 1,000 ML IV ONE (03:35)
--- NOTE | 2019-11-05 03:37 | ER Document Report ---
ED General - General Chief Complaint: Back Pain Stated Complaint: LOWER BACK PAIN Time Seen by Provider: 11/05/19 03:25 Primary Care Provider: GRETA CEDILLO PA-C [Primary Care Provider] - Follow up as needed Notes: Patient is a 54-year-old male that comes emergency department for chief complaint of sharp pain in his left lower back, left side, and left abdomen that has been intermittent for a week but worsening and he could not stand it tonight. He was evaluated recently and had a CAT scan of the lumbar spine and x-ray of the left hip, he states he was prescribed Percocet by his oncologist, he states that this does not seem to be helping. He denies injury, fever, nausea, vomiting, dysuria, hematuria, testicular pain. He states he is slightly constipated. He denies abdominal surgeries. Past medical history includes stage III lung cancer status post chemo and currently not on any chemotherapy or radiation. He is a current smoker. TRAVEL OUTSIDE OF THE [place] IN LAST 30 DAYS: No - Related Data Allergies/Adverse Reactions: Penicillins Allergy (Verified 09/20/18 11:13) Past Medical History - General Information source: Patient - Social History Smoking Status: Current Every Day Smoker Smoking Education Provided: Yes - <3 min Lives with: Alone Family History: Reviewed & Not Pertinent, Hypertension, Malignancy - Mother with breast cancer - Past Medical History Cardiac Medical History: Reports: Hx DVT, Hx Hypertension, Hx Peripheral Vascular Disease Denies: Hx Congestive Heart Failure, Hx Heart Attack Pulmonary Medical History: Reports: Hx Pneumonia Denies: Hx Asthma, Hx Bronchitis, Hx COPD, Hx Tuberculosis Neurological Medical History: Denies: Hx Migraine, Hx Seizures, Hx Parkinson's Disease Endocrine Medical History: Denies: Hx Diabetes Mellitus Type 2, Hx Hyperthyroidism, Hx Hypothyroidism Renal/ Medical History: Denies: Hx Benign Prostatic Hyperplasia, Hx End Stage Renal Disease, Hx Kidney Stones, Hx Peritoneal Dialysis Malignancy Medical History: Reports Hx Lung Cancer GI Medical History: Reports: Hx Gastroesophageal Reflux Disease. Denies: Hx Cirrhosis Musculoskeletal Medical History: Denies Hx Arthritis, Denies Hx Multiple Sclerosis Psychiatric Medical History: Denies: Hx Bipolar Disorder, Hx Depression, Hx Schizophrenia Traumatic Medical History: Denies: Hx Gunshot Wound, Hx Traumatic Brain Injury Past Surgical History: Reports: Other - Bronchoscopy x2 - Immunizations Hx Diphtheria, Pertussis, Tetanus Vaccination: Yes Review of Systems - Review of Systems Constitutional: No symptoms reported EENT: No symptoms reported Cardiovascular: No symptoms reported Respiratory: No symptoms reported Gastrointestinal: See HPI Genitourinary: See HPI Male Genitourinary: No symptoms reported Musculoskeletal: See HPI Skin: No symptoms reported Hematologic/Lymphatic: No symptoms reported Neurological/Psychological: No symptoms reported Physical Exam - Vital signs Vitals: Temp Pulse Resp BP Pulse Ox 98.5 F 120 H 15 137/99 H 98 11/05/19 02:47 11/05/19 02:47 11/05/19 02:47 11/05/19 02:47 11/05/19 02:47 - Notes Notes: GENERAL: Patient is thin and chronically ill-appearing. Patient does not appear to be in distress HEAD: Normocephalic, atraumatic. EYES: Pupils equal, round, and reactive to light. Extraocular movements intact. ENT: Oral mucosa moist, tongue midline. Oropharynx unremarkable. Airway patent. LUNGS: Clear to auscultation bilaterally, no wheezes, rales, or rhonchi. No respiratory distress. Non-tender chest wall. HEART: Regular rate and rhythm. No murmur ABDOMEN: There is some generalized tenderness over the mid to lower left abdomen although there is no guarding. Remaining abdomen is benign and unremarkable. GENITOURINARY: No swelling or abnormal findings noted EXTREMITIES: Moves all 4 extremities spontaneously. No edema, normal radial and dorsalis pedis pulses bilaterally. No cyanosis. Clubbing of all the fingers noted. BACK: no cervical, thoracic, lumbar midline tenderness. No saddle anesthesia, normal distal neurovascular exam. Moves all extremities in full range of motion. NEUROLOGICAL: Alert and oriented x3. Normal speech. Cranial nerves II through XII grossly intact. Strength 5/5 in all extremities. PSYCH: Normal affect, normal mood. SKIN: Chronic buildup skin changes in both lower extremities with no obvious acute abnormality or abnormal erythema Course - Re-evaluation Re-evalutation: CBC shows anemia at 9.1 although this is not significantly changed from prior, no leukocytosis, nonspecific otherwise. Chemistry shows slightly elevated BUN and creatinine, patient was given IV fluids, bicarbonate is low at 16, however this is consistent with patient's previous 2 evaluations. Patient has no change in his baseline respiratory status, he is alert, he has no evidence of confusion, he is completely oriented. Patient has some generalized tenderness over the left lower abdomen, his hip exam is actually unremarkable and he has full range of motion of the hip without pain. He also has nonspecific pain in his back which is not reproducible on palpation. Patient has urinary hesitancy. CT will be performed. CT shows left-sided 5 mm ureterolithiasis. Urine is not infected. Patient was given additional fluids, after 3 mg of morphine symptoms completely resolved. Patient is very appreciative. Patient states he is ready to go home although he does state he will follow close with urology workers compensation coordinator today. I discussed details, medications, follow-up, return precautions at length. Patient states understanding and agreement. Stable and well-appearing at time of discharge. - Vital Signs Vital signs: Temp Pulse Resp BP Pulse Ox 98.5 F 120 H 15 137/99 H 100 11/05/19 02:47 11/05/19 02:47 11/05/19 06:00 11/05/19 02:47 11/05/19 06:00 - Laboratory Result Diagrams: 11/05/19 04:04 11/05/19 04:04 Laboratory results interpreted by me: 11/05/19 11/05/19 11/05/19 04:04 04:04 05:53 RBC 2.66 L Hgb 9.1 L Hct 26.5 L MCV 100 H MCH 34.2 H RDW 25.7 H Plt Count 63 L Seg Neuts % (Manual) 95 H Lymphocytes % (Manual) 3 L Monocytes % (Manual) 2 L Abs Lymphs (Manual) 0.2 L Sodium 135.4 L Chloride 111 H Carbon Dioxide 16 L BUN 37 H Creatinine 1.35 H Est GFR (MDRD) Non-Af 55 L Glucose 141 H Calcium 8.1 L AST 98 H Alkaline Phosphatase 303 H Albumin 3.0 L Urine Protein 100 H Urine Blood MODERATE H Discharge - Discharge Clinical Impression: Left flank pain, Ureterolithiasis Abdominal pain Qualifiers: Abdominal location: lower abdomen, unspecified Qualified Code(s): R10.30 - Lower abdominal pain, unspecified Condition: Stable Disposition: HOME, SELF-CARE Additional Instructions: Your evaluation shows a 5 mm passing kidney stone on the left side. Take the Flomax as prescribed, take the pain medication if needed, take the nausea medica tion as prescribed, drink plenty of fluids. If you do take the pain medication also take the stool softener to avoid constipation. Call the urology referral listed below for close follow-up and additional management. Return if you worsen including vomiting, severe worsening pain, fever, or any ot her concerning or worsening symptoms. [facility] [address] [place] [phone] [facility] [address] [place], [place] [id number] Neville Rasheed MD Doctor in [place], [place] Address: [facility] [address], [place] [address] Prescriptions: Morphine Sulfate [Morphine Ir 15 Mg Tablet] 15 mg PO Q4HP PRN #15 tablet PRN Reason: Tamsulosin HCl [Flomax 0.4 mg Cap.sr] 0.4 mg PO DAILY #7 cap.sr.24h Polyethylene Glycol 3350 [Miralax Powder 17 gm/Packet] 1 packet PO DAILY PRN #1 pkg PRN Reason: Ondansetron [Zofran Odt 4 mg Tablet] 1 - 2 tab PO Q4H PRN #15 tab.rapdis PRN Reason: For Nausea/Vomiting Referrals: GRETA CEDILLO PA-C [Primary Care Provider] - Follow up as needed
--- NOTE | 2019-11-05 04:19 | RADIOLOGY REPORT (SQ) ---
CT ABDOMEN AND PELVIS WITHOUT INTRAVENOUS CONTRAST: 11/05/2019 3:10 AM CDT HISTORY: 54-year old with left-sided flank pain, abdominal pain. COMPARISON: CT of abdomen and pelvis from 10/04/2019 TECHNIQUE: Axial contiguous images were obtained from the lung bases to the proximal femurs without intravenous contrast administered. Sagittal and coronal reconstructions were also obtained and reviewed. This exam was performed according to our departmental dose-optimization program, which includes automated exposure control, adjustment of the mA and/or KV according to the patient's size and/or use of iterative reconstruction technique. FINDINGS: The lung bases appear clear without evidence of a focal consolidative airspace opacity or effusions. Evaluation of the solid organs is limited by the lack of intravenous contrast. The visualized hepatic parenchyma is unremarkable. Cholelithiasis is seen. The pancreas and adrenals are normal in size and contour. The spleen is enlarged and measures at least 14.2 cm in length. There is mild left hydronephrosis again noted with prominence of the left ureter. There is a 4 to 5 mm calculus at the distal left ureter, unchanged since prior imaging. There are punctate bilateral nonobstructive renal calculi. No right ureteral calculi are seen. No bladder calculi are apparent. There are also bilateral renal vascular calcifications present. The urinary bladder is mildly distended, and appears grossly unremarkable. The stomach is not well distended. The small bowel loops appear unremarkable. No pericolonic inflammatory stranding is seen. There are multiple diverticula seen within the sigmoid and descending colon, without evidence to suggest diverticulitis. There is no evidence of pneumoperitoneum or free fluid. The aorta and IVC appear normal in size. There is atherosclerotic calcification seen at the aorta and into the iliac arteries. No significantly enlarged lymph nodes are seen in the abdomen or pelvis. Review of the bone show no evidence of any suspicious lytic or blastic lesions. IMPRESSION: There is mild left hydroureteronephrosis with a 4 to 5 mm calculus again noted at the distal left ureter.
[2019-11-05 04:25] LABS: HEMATOCRIT 26.5 % (37.9-51.0); HEMOGLOBIN 9.1 g/dL (13.5-17.0); MEAN CORPUSCULAR HEMOGLOBIN 34.2 pg (27.0-33.4); MEAN CORPUSCULAR HGB CONC 34.3 g/dL (32.0-36.0); MEAN CORPUSCULAR VOLUME 100 fl (80-97); RED BLOOD COUNT 2.66 10^6/uL (4.35-5.55); RED CELL DISTRIBUTION WIDTH 25.7 % (11.5-14.0); WHITE BLOOD COUNT 6.6 10^3/uL (4.0-10.5)
[2019-11-05 04:34] LABS: ALKALINE PHOSPHATASE 303 U/L (38-126); ANION GAP 8 (5-19); ASPARTATE AMINO TRANSFERASE 98 U/L (17-59); BILIRUBIN,DIRECT 0.1 mg/dL (0.0-0.4); BILIRUBIN,TOTAL 0.5 mg/dL (0.2-1.3); BLOOD UREA NITROGEN 37 mg/dL (7-20); CALCIUM 8.1 mg/dL (8.4-10.2); CARBON DIOXIDE 16 mmol/L (22-30); CHLORIDE 111 mmol/L (98-107); GLUCOSE 141 mg/dL (75-110); POTASSIUM 3.7 mmol/L (3.6-5.0); TOTAL PROTEIN 6.5 g/dL (6.3-8.2)
[2019-11-05 04:46] LABS: PLATELET COUNT 63 10^3/uL (150-450)
[2019-11-05 04:48] LABS: ABSOLUTE LYMPHOCYTES# (MANUAL) 0.2 10^3/uL (0.5-4.7); ABSOLUTE MONOCYTES # (MANUAL) 0.1 10^3/uL (0.1-1.4); BASOPHILS % (MANUAL) 0 % (0-2); EOSINOPHILS % (MANUAL) 0 % (0-6); LYMPHOCYTES % (MANUAL) 3 % (13-45); MONOCYTES % (MANUAL) 2 % (3-13); SEGMENTED NEUTROPHILS % (MAN) 95 % (42-78); TOTAL CELLS COUNTED 100
[2019-11-05 04:49] LABS: ANISOCYTOSIS 3+; HELMET CELLS SLIGHT; OVALOCYTES 2+; POIKILOCYTOSIS 3+; TOXIC GRANULATION SLIGHT
[2019-11-05 04:50] LABS: BURR CELLS SLIGHT; PLATELET COMMENT DECREASED; TEAR DROP CELLS 1+
[2019-11-05] MEDS ORDERED: RINGERS SOLUTION,LACTATED 1,000 ML IV ONE (04:53)
[2019-11-05 06:19] LABS: APPEARANCE,URINE SLIGHTLY-CLOUDY; BILIRUBIN,URINE NEGATIVE (NEGATIVE); COLOR,URINE YELLOW; GLUCOSE, URINE NEGATIVE (NEGATIVE); KETONES,URINE NEGATIVE (NEGATIVE); LEUKOCYTE ESTERASE,URINE NEGATIVE (NEGATIVE); NITRITE,URINE NEGATIVE (NEGATIVE); PROTEIN,URINE 100 mg/dL (NEGATIVE); URINE SPECIFIC GRAVITY 1.017; UROBILINOGEN,URINE NEGATIVE mg/dL (<2.0)
== END 2019-11-05 07:55 | disposition home or self-care (01) ==
LOC: ER 02:36
DX: N13.2 Hydronephrosis with renal and ureteral calculous obstruction (principal); M54.5 Low back pain; D64.9 Anemia, unspecified; I10 Essential (primary) hypertension; F17.200 Nicotine dependence, unspecified, uncomplicated; Z88.0 Allergy status to penicillin; Z85.118 Personal history of other malignant neoplasm of bronchus and lung; Z92.21 Personal history of antineoplastic chemotherapy
CPT/HCPCS: 99406; 99284; 96361; 96374; 96375; 36415; 83690; 85025; 80053; 81001; 74176; J2270; J2405; J7030; J7120

== ENCOUNTER 2019-11-07 12:57 | Inpatient (IN) | payer MEDICARE ==
--- NOTE | 2019-11-07 13:37 | ER Document Report ---
ED Medical Screen (RME) - General Chief Complaint: Weakness Stated Complaint: WEAKNESS Time Seen by Provider: 11/07/19 13:30 Primary Care Provider: GRETA CEDILLO PA-C [Primary Care Provider] - Follow up as needed Mode of Arrival: Wheelchair Information source: Patient Notes: 54-year-old male presented to ED for weakness shortness of breath and back pain all over. He has stage IV lung CA. He went to Dr. BOSS's office today. Dr. BOSS asked him did not think she was ready to be admitted for the pain and the patient stated yes he was. He states he is hurting pretty bad. He states he takes morphine every night does not take it in the morning. He does smoke a pack a day drinks weekly and does not use any illicit drugs. He does have a history of high blood pressure. Patient is able to answer all questions appropriately. I have greeted and performed a rapid initial assessment of this patient. A comprehensive ED assessment and evaluation of the patient, analysis of test results and completion of medical decision making process will be conducted by an additional ED providers. TRAVEL OUTSIDE OF THE [place] IN LAST 30 DAYS: No - Related Data Allergies/Adverse Reactions: Penicillins Allergy (Verified 09/20/18 11:13) Past Medical History - Social History Family history: Reviewed & Not Pertinent - Past Medical History Cardiac Medical History: Reports: Hx DVT, Hx Hypertension, Hx Peripheral Vascular Disease Denies: Hx Congestive Heart Failure, Hx Heart Attack Pulmonary Medical History: Reports: Hx Pneumonia Denies: Hx Asthma, Hx Bronchitis, Hx COPD, Hx Tuberculosis Neurological Medical History: Denies: Hx Migraine, Hx Seizures, Hx Parkinson's Disease Endocrine Medical History: Denies: Hx Diabetes Mellitus Type 2, Hx Hyperthyroidism, Hx Hypothyroidism Renal/ Medical History: Denies: Hx Benign Prostatic Hyperplasia, Hx End Stage Renal Disease, Hx Kidney Stones, Hx Peritoneal Dialysis Malignancy Medical History: Reports Hx Lung Cancer GI Medical History: Reports: Hx Gastroesophageal Reflux Disease. Denies: Hx Cirrhosis Musculoskeltal Medical History: Denies Hx Arthritis, Denies Hx Multiple Sclerosis Psychiatric Medical History: Denies: Hx Bipolar Disorder, Hx Depression, Hx Schizophrenia Traumatic Medical History: Denies: Hx Gunshot Wound, Hx Traumatic Brain Injury Past Surgical History: Reports: Other - Bronchoscopy x2 - Immunizations Hx Diphtheria, Pertussis, Tetanus Vaccination: Yes Physical Exam - Vital signs Vitals: Temp Pulse Resp BP Pulse Ox 97.8 F 128 H 18 136/86 H 98 11/07/19 13:26 11/07/19 13:26 11/07/19 13:26 11/07/19 13:26 11/07/19 13:26 Course - Vital Signs Vital signs: Temp Pulse Resp BP Pulse Ox 97.8 F 128 H 18 136/86 H 98 11/07/19 13:26 11/07/19 13:26 11/07/19 13:26 11/07/19 13:26 11/07/19 13:26 Doctor's Discharge - Discharge Referrals: GRETA CEDILLO PA-C [Primary Care Provider] - Follow up as needed
[2019-11-07] MEDS ORDERED: RINGERS SOLUTION,LACTATED 1,000 ML IV ONE (13:43)
[2019-11-07] MEDS ORDERED: NORMAL SALINE 1000 ML 1,000 ML IV ONE (13:43)
[2019-11-07 14:05] LABS: HEMATOCRIT 25.9 % (37.9-51.0); MEAN CORPUSCULAR HEMOGLOBIN 34.1 pg (27.0-33.4); MEAN CORPUSCULAR HGB CONC 34.6 g/dL (32.0-36.0); MEAN CORPUSCULAR VOLUME 99 fl (80-97); RED BLOOD COUNT 2.63 10^6/uL (4.35-5.55); RED CELL DISTRIBUTION WIDTH 25.4 % (11.5-14.0)
[2019-11-07 14:10] LABS: INTERNATIONAL RATION (INR) 1.17
[2019-11-07 14:11] LABS: PARTIAL THROMBOPLASTIN TIME 34.3 SEC (23.5-35.8); PLATELET COUNT 76 10^3/uL (150-450)
--- NOTE | 2019-11-07 14:14 | RADIOLOGY REPORT (SQ) ---
EXAM DESCRIPTION: CHEST 2 VIEWS IMAGES COMPLETED DATE/TIME: 11/07/2019 1:54 pm REASON FOR STUDY: Lungs CA short of breath total body weakness pain COMPARISON: 10/22/2019 EXAM PARAMETERS: NUMBER OF VIEWS: two views TECHNIQUE: Digital Frontal and Lateral radiographic views of the chest acquired. RADIATION DOSE: NA LIMITATIONS: none FINDINGS: LUNGS AND PLEURA: Grossly stable appearance of the known left upper lobe cavitary mass. R ight upper lobe and perihilar opacities appear stable. MEDIASTINUM AND HILAR STRUCTURES: No masses or contour abnormalities. HEART AND VASCULAR STRUCTURES: Heart normal size. No evidence for failure. BONES: No acute findings. HARDWARE: None in the chest. OTHER: No other significant finding. IMPRESSION: Stable left upper lobe and right perihilar opacities from prior. Likely combination of known mass and postobstructive atelectasis/pneumonia. No evidence of new acute cardiopulmonary process. TECHNICAL DOCUMENTATION: JOB ID: [id number] 2010 [employer]- All Rights Reserved Reading location - IP/workstation name: [email or web address]
[2019-11-07 14:19] LABS: ALKALINE PHOSPHATASE 313 U/L (38-126); ANION GAP 7 (5-19); ASPARTATE AMINO TRANSFERASE 53 U/L (17-59); BILIRUBIN,DIRECT 0.1 mg/dL (0.0-0.4); BILIRUBIN,TOTAL 0.6 mg/dL (0.2-1.3); BLOOD UREA NITROGEN 27 mg/dL (7-20); CALCIUM 8.3 mg/dL (8.4-10.2); CARBON DIOXIDE 20 mmol/L (22-30); CHLORIDE 109 mmol/L (98-107); GLUCOSE 110 mg/dL (75-110); POTASSIUM 3.3 mmol/L (3.6-5.0); TOTAL PROTEIN 6.4 g/dL (6.3-8.2)
[2019-11-07 14:32] LABS: ABSOLUTE LYMPHOCYTES# (MANUAL) 0.4 10^3/uL (0.5-4.7); ABSOLUTE MONOCYTES # (MANUAL) 0.3 10^3/uL (0.1-1.4); BAND NEUTROPHILS % (MANUAL) 1 % (3-5); BASOPHILS % (MANUAL) 0 % (0-2); EOSINOPHILS % (MANUAL) 0 % (0-6); LYMPHOCYTES % (MANUAL) 5 % (13-45); MONOCYTES % (MANUAL) 4 % (3-13); SEGMENTED NEUTROPHILS % (MAN) 89 % (42-78); TOTAL CELLS COUNTED 100
[2019-11-07 14:38] LABS: ANISOCYTOSIS 3+; HYPOCHROMASIA 2+; POLYCHROMASIA SLIGHT
[2019-11-07 14:39] LABS: BURR CELLS 1+; PLATELET COMMENT DECREASED; POIKILOCYTOSIS 1+; TEAR DROP CELLS 1+
[2019-11-07 14:41] LABS: TOXIC GRANULATION SLIGHT
[2019-11-07 15:03] LABS: APPEARANCE,URINE SLIGHTLY-CLOUDY; BILIRUBIN,URINE NEGATIVE (NEGATIVE); COLOR,URINE YELLOW; GLUCOSE, URINE NEGATIVE (NEGATIVE); KETONES,URINE NEGATIVE (NEGATIVE); LEUKOCYTE ESTERASE,URINE NEGATIVE (NEGATIVE); NITRITE,URINE NEGATIVE (NEGATIVE); PROTEIN,URINE 100 mg/dL (NEGATIVE); URINE SPECIFIC GRAVITY 1.017; UROBILINOGEN,URINE NEGATIVE mg/dL (<2.0)
[2019-11-07] MEDS ORDERED: POTASSIUM CHLORIDE 10 MEQ TABLET.ER PO ONE (18:14)
--- NOTE | 2019-11-07 18:34 | RADIOLOGY REPORT (SQ) ---
EXAM DESCRIPTION: CT CHEST WITH IMAGES COMPLETED DATE/TIME: 11/07/2019 6:10 pm REASON FOR STUDY: lung cancer pain all over COMPARISON: 09/18/2019 TECHNIQUE: CT scan of the chest performed using helical scanning technique with dynamic intravenous contrast injection. Images reviewed with lung, soft tissue and bone windows. Reconstructed coronal and sagittal MPR and MIP images reviewed. All images stored on PACS. All CT scanners at this facility use dose modulation, iterative reconstruction, and/or weight based d osing when appropriate to reduce radiation dose to as low as reasonably achievable (ALARA). [facility]: Dose Right [facility]: CareDose [facility]: Dose Right [facility]: Teradose 4D [facility]: [employer] CONTRAST TYPE AND DOSE: 80 mL Omnipaque 350- low osmolar. RENAL FUNCTION: BUN 37 creatinine 1.3 RADIATION DOSE: CT Rad equipment meets quality standard of care and radiation dose reduction techniq ues were employed. CTDIvol: 6.3 - 6.6 mGy. DLP: 872 mGy-cm. . LIMITATIONS: None. FINDINGS: LUNGS AND PLEURA: Right hilar/ perihilar mass now measures 56.3 mm in largest AP diameter end 56.6 mm in largest transverse diameter. There is once again considerable opacification the left upper lobe and superior segments of the left lower lobe ground-glass opacification is present In this area. There is solid appearing pleural base mass on the left. This measures 34.6 mm by 21.1 mm. HILAR AND MEDIASTINAL STRUCTURES: There is a 34.6 mm peritracheal node on the right there is a 29.9 m m precarinal node. HEART AND VASCULAR STRUCTURES: No aneurysm or dissection. No central pulmonary emboli. No pericardi al effusion. HARDWARE: None in the chest. UPPER ABDOMEN: See separate report of the CT of the abdomen. THYROID AND OTHER SOFT TISSUES: No masses. No adenopathy. BONES: There is bone destruction in the lateral 4th and 5th ribs on the left that is stable. OTHER: No other significant finding. IMPRESSION: There is a worsening disease in the lungs and mediastinum. Metastatic disease to bone. TECHNICAL DOCUMENTATION: JOB ID: [id number] Quality ID # [id number]: Final reports with documentation of one or more dose reduction techniques (e.g., Au tomated exposure control, adjustment of the mA and/or kV according to patient size, use of iterative reconstruction technique) 2010 [employer]- All Rights Reserved Reading location - IP/workstation name: [email or web address]
--- NOTE | 2019-11-07 18:44 | RADIOLOGY REPORT (SQ) ---
EXAM DESCRIPTION: CT ABD/PELVIS WITH IV ORAL IMAGES COMPLETED DATE/TIME: 11/07/2019 6:10 pm REASON FOR STUDY: lung cancer pain all over COMPARISON: 11/05/2019 TECHNIQUE: CT scan of the abdomen and pelvis performed using helical scanning technique with dynamic intravenous contrast injection. Oral contrast. Images reviewed with lung, soft tissue, and bone win dows. Reconstructed coronal and sagittal MPR images reviewed. Delayed images for evaluation of the ur inary system also acquired. All images stored on PACS. All CT scanners at this facility use dose modulation, iterative reconstruction, and/or weight based d osing when appropriate to reduce radiation dose to as low as reasonably achievable (ALARA). [facility]: Dose Right [facility]: CareDose [facility]: Dose Right [facility]: Teradose 4D [facility]: [facility] [place] CONTRAST TYPE AND DOSE: contrast/concentration: Isovue 350.00 mmol/ml; Total Contrast Delivered: 80. 0 ml; Total Saline Delivered: 24.6 ml RENAL FUNCTION: See report for CT of the chest. RADIATION DOSE: . LIMITATIONS: None. FINDINGS: LOWER CHEST: See separate report of the CT of the chest. LIVER: Normal size. No masses. No dilated ducts. SPLEEN: Normal size. No focal lesions. PANCREAS: No masses. No significant calcifications. No adjacent inflammation or peripancreatic fluid collections. Pancreatic duct not dilated. GALLBLADDER: Multiple small gallstones. No evidence of cholecystitis. ADRENAL GLANDS: No significant masses or asymmetry. RIGHT KIDNEY AND URETER: No solid masses. Nonobstructing intrarenal calculi. No hydronephrosis or hydroureter. LEFT KIDNEY AND URETER: No solid masses. There are some small intrarenal calculi. Mild hydroureter secondary to a 5 mm calculus in the distal ureter on image 113 series 3. No significant hydronephr osis. AORTA AND VESSELS: No aneurysm. No dissection. Renal arteries, SMA, celiac without stenosis. RETROPERITONEUM: No retroperitoneal adenopathy, hemorrhage or masses. BOWEL AND PERITONEAL CAVITY: Mild diverticulosis. There is thickening of a segment of the sigmoid co jonny seen best on image 95 series 3. APPENDIX: Not identified. PELVIS: No mass. No free fluid. Normal bladder. ABDOMINAL WALL: No masses. No hernias. BONES: No significant or acute findings. OTHER: No other significant finding. IMPRESSION: There is mild left hydroureter secondary to the presence of 5 mm calculus in the distal ureter. Intrarenal calculi are seen bilaterally. There is mild sigmoid diverticulosis. There is th ickening of a segment of the sigmoid colon that could indicate inflammation or neoplasm. TECHNICAL DOCUMENTATION: JOB ID: [id number] Quality ID # [id number]: Final reports with documentation of one or more dose reduction techniques (e.g., Au tomated exposure control, adjustment of the mA and/or kV according to patient size, use of iterative reconstruction technique) 2010 [employer]- All Rights Reserved Reading location - IP/workstation name: [email or web address]
[2019-11-07] MEDS ORDERED: MAGNESIUM OXIDE 400 MG TABLET PO ONE (18:47)
--- NOTE | 2019-11-07 19:44 | ER Document Report ---
ED Dizziness/Weakness - General Chief Complaint: General Weakness Stated Complaint: WEAKNESS Time Seen by Provider: 11/07/19 13:30 Mode of Arrival: Wheelchair Information source: Patient Notes: Patient presents complaining of low back pain, hip pain and bilateral knee pain. Patient reports having generalized weakness and difficulty with ambulating. Patient was seen at his oncologist office and had profound weakness causing him to have difficulty with ambulation and getting out of his vehicle. Patient denies any fever, nausea or vomiting. Patient is currently being treated for stage IV lung cancer. Patient's oncologist wanted him to come here for evaluation and admission to the hospital. TRAVEL OUTSIDE OF THE [place] IN LAST 30 DAYS: No - HPI Patient complains to provider of: Weakness Onset/Duration: Worse Quality of pain: Achy Pain Level: 3 Associated symptoms: Diarrhea, Weak all over. denies: Fainted, Nausea, Swe ating, Vomiting Baseline gait: Walks w/o assistance - Related Data Allergies/Adverse Reactions: Penicillins Allergy (Verified 09/20/18 11:13) Past Medical History - General Information source: Patient - Social History Smoking Status: Current Every Day Smoker Chew tobacco use (# tins/day): No Frequency of alcohol use: Occasional Drug Abuse: None Occupation: None Lives with: Alone Family History: Reviewed & Not Pertinent, Hypertension, Malignancy - Mother with breast cancer Patient has homicidal ideation: No - Past Medical History Cardiac Medical History: Reports: Hx DVT, Hx Hypertension, Hx Peripheral V ascular Disease Denies: Hx Congestive Heart Failure, Hx Heart Attack Pulmonary Medical History: Reports: Hx Pneumonia Denies: Hx Asthma, Hx Bronchitis, Hx COPD, Hx Tuberculosis Neurological Medical History: Denies: Hx Migraine, Hx Seizures, Hx Parkinson's Disease Endocrine Medical History: Denies: Hx Diabetes Mellitus Type 2, Hx Hyperthyroidism, Hx Hypothyroidism Renal/ Medical History: Denies: Hx Benign Prostatic Hyperplasia, Hx End Stage Renal Disease, Hx Kidney Stones, Hx Peritoneal Dialysis Malignancy Medical History: Reports Hx Lung Cancer GI Medical History: Reports: Hx Gastroesophageal Reflux Disease Past Surgical History: Reports: Other - Bronchoscopy x2 - Immunizations Hx Diphtheria, Pertussis, Tetanus Vaccination: Yes Review of Systems - Review of Systems Constitutional: Weakness. denies: Chills, Fever EENT: No symptoms reported Cardiovascular: No symptoms reported. denies: Chest pain Respiratory: Cough Gastrointestinal: No symptoms reported. denies: Abdominal pain, Vomiting Genitourinary: No symptoms reported. denies: Dysuria Male Genitourinary: No symptoms reported Musculoskeletal: Back pain, Joint pain - Hips, knees Skin: No symptoms reported Hematologic/Lymphatic: No symptoms reported Neurological/Psychological: Weakness Physical Exam - Vital signs Vitals: Temp Pulse Resp BP Pulse Ox 97.8 F 128 H 18 136/86 H 98 11/07/19 13:26 11/07/19 13:26 11/07/19 13:26 11/07/19 13:26 11/07/19 13:26 - General General appearance: Alert In distress: None - HEENT Head: Normocephalic, Atraumatic Eyes: Normal - Respiratory Respiratory status: No respiratory distress Chest status: Nontender Breath sounds: Nonproductive cough, Rhonchi - Occasional Chest palpation: Normal - Cardiovascular Rhythm: Regular Heart sounds: S1 appreciated, S2 appreciated - Abdominal Inspection: Normal Distension: No distension Bowel sounds: Normal Tenderness: Nontender - Back Back: Tender - Lumbar paraspinal tenderness, Vertebra tenderness - Lower lumbar tenderness, sacral tenderness - Extremities General upper extremity: Normal inspection General lower extremity: Edema - Lymphedema bilateral lower extremities. No: Normal strength - Weakness, patient unable to lift bilateral lower extremities against gravity off the stretcher - Neurological Mcfaddin Coma Scale Eye Opening: Spontaneous [place]faddin Coma Scale Verbal: Oriented Elaine Coma Scale Motor: Obeys Commands Elaine Coma Scale Total: 15 - Psychological Associated symptoms: Normal affect, Normal mood - Skin Skin Temperature: Warm Skin Moisture: Dry Skin Color: Pale Course - Re-evaluation Re-evalutation: 11/07/19 19:[address] Chavez regarding patient presentation. Dr. Chavez voiced concerns about patient's deconditioned status as well as dehydration and g eneralized weakness and inability to care for himself. He recommends calling hospitalist for admission so that he can and discussed with patient continuing chemotherapy or moving towards hospice. 11/07/19 19:[address] Puente regarding patient presentation. Dr. woodard is agreeable with admitting patient to medical floor at this time. - Vital Signs Vital signs: Temp Pulse Resp BP Pulse Ox 98.3 F 128 H 25 H 172/94 H 100 11/07/19 20:31 11/07/19 13:26 11/07/19 21:01 11/07/19 21:01 11/07/19 21:01 - Laboratory Result Diagrams: 11/07/19 13:42 11/07/19 13:42 Laboratory results interpreted by me: 11/07/19 11/07/19 11/07/19 13:42 13:42 13:42 RBC 2.63 L Hgb 9.0 L Hct 25.9 L MCV 99 H MCH 34.1 H RDW 25.4 H Plt Count 76 L Seg Neuts % (Manual) 89 H Band Neutrophils % 1 L Lymphocytes % (Manual) 5 L Abs Lymphs (Manual) 0.4 L Sodium 135.8 L Potassium 3.3 L Chloride 109 H Carbon Dioxide 20 L BUN 27 H Creatinine 1.30 H Est GFR (MDRD) Non-Af 57 L Calcium 8.3 L Magnesium 1.5 L Alkaline Phosphatase 313 H Albumin 3.0 L Urine Protein Urine Blood 11/07/19 14:41 RBC Hgb Hct MCV MCH RDW Plt Count Seg Neuts % (Manual) Band Neutrophils % Lymphocytes % (Manual) Abs Lymphs (Manual) Sodium Potassium Chloride Carbon Dioxide BUN Creatinine Est GFR (MDRD) Non-Af Calcium Magnesium Alkaline Phosphatase Albumin Urine Protein 100 H Urine Blood MODERATE H 11/07/19 21:46 Labs- All tests 24 hr 11/07/19 11/07/19 11/07/19 13:42 13:42 13:42 WBC 7.0 RBC 2.63 L Hgb 9.0 L Hct 25.9 L MCV 99 H MCH 34.1 H MCHC 34.6 RDW 25.4 H Plt Count 76 L Lymph % (Auto) Not Reportable [place] % (Auto) Not Reportable Eos % (Auto) Not Reportable Baso % (Auto) Not Reportable Absolute Neuts (auto) Not Reportable Absolute Lymphs (auto) Not Reportable Absolute Monos (auto) Not Reportable Absolute Eos (auto) Not Reportable Absolute Basos (auto) Not Reportable Total Counted 100 Seg Neutrophils % Not Reportable Seg Neuts % (Manual) 89 H Band Neutrophils % 1 L Lymphocytes % (Manual) 5 L Atypical Lymphs % 1 Monocytes % (Manual) 4 Eosinophils % (Manual) 0 Basophils % (Manual) 0 Abs Neuts (Manual) 6.3 Abs Lymphs (Manual) 0.4 L Abs Monocytes (Manual) 0.3 Absolute Eos (Manual) 0.0 Abs Basophils (Manual) 0.0 Toxic Granulation SLIGHT Platelet Comment DECREASED Polychromasia SLIGHT Hypochromasia 2+ Poikilocytosis 1+ Anisocytosis 3+ Macrocytosis SLIGHT Tear Drop Cells 1+ [place] Cells 1+ PT 15.0 INR 1.17 APTT 34.3 Sodium 135.8 L Potassium 3.3 L Chloride 109 H Carbon Dioxide 20 L Anion Gap 7 BUN 27 H Creatinine 1.30 H Est GFR ( Amer) > 60 Est GFR (MDRD) Non-Af 57 L Glucose 110 Calcium 8.3 L Magnesium Total Bilirubin 0.6 Direct Bilirubin 0.1 Neonat Total Bilirubin Not Reportable Neonat Direct Bilirubin Not Reportable Neonat Indirect Bili Not Reportable AST 53 ALT 15 Alkaline Phosphatase 313 H Total Protein 6.4 Albumin 3.0 L Lipase 91.5 Urine Color Urine Appearance Urine pH Ur Specific [place] Urine Protein Urine Glucose (UA) Urine Ketones Urine Blood Urine Nitrite Urine Bilirubin Urine Urobilinogen Ur Leukocyte Esterase Urine WBC (Auto) Urine RBC (Auto) U Hyaline Cast (Auto) Squamous Epi Cells Auto Urine Mucus (Auto) Urine Ascorbic Acid 11/07/19 11/07/19 13:42 14:41 WBC RBC Hgb Hct MCV MCH MCHC RDW Plt Count Lymph % (Auto) [place] % (Auto) Eos % (Auto) Baso % (Auto) Absolute Neuts (auto) Absolute Lymphs (auto) Absolute Monos (auto) Absolute Eos (auto) Absolute Basos (auto) Total Counted Seg Neutrophils % Seg Neuts % (Manual) Band Neutrophils % Lymphocytes % (Manual) Atypical Lymphs % Monocytes % (Manual) Eosinophils % (Manual) Basophils % (Manual) Abs Neuts (Manual) Abs Lymphs (Manual) Abs Monocytes (Manual) Absolute Eos (Manual) Abs Basophils (Manual) Toxic Granulation Platelet Comment Polychromasia Hypochromasia Poikilocytosis Anisocytosis Macrocytosis Tear Drop Cells Ajith Cells PT INR APTT Sodium Potassium Chloride Carbon Dioxide Anion Gap BUN Creatinine Est GFR ( Amer) Est GFR (MDRD) Non-Af Glucose Calcium Magnesium 1.5 L Total Bilirubin Direct Bilirubin Neonat Total Bilirubin Neonat Direct Bilirubin Neonat Indirect Bili AST ALT Alkaline Phosphatase Total Protein Albumin Lipase Urine Color YELLOW Urine Appearance SLIGHTLY-CLOUDY Urine pH 5.0 Ur Specific [place] 1.017 Urine Protein 100 H Urine Glucose (UA) NEGATIVE Urine Ketones NEGATIVE Urine Blood MODERATE H Urine Nitrite NEGATIVE Urine Bilirubin NEGATIVE Urine Urobilinogen NEGATIVE Ur Leukocyte Esterase NEGATIVE Urine WBC (Auto) 4 Urine RBC (Auto) 20 U Hyaline Cast (Auto) 4 Squamous Epi Cells Auto <1 Urine Mucus (Auto) RARE Urine Ascorbic Acid NEGATIVE - Diagnostic Test Radiology reviewed: Reports reviewed Discharge - Discharge Clinical Impression: Hypomagnesemia, Hypokalemia, General weakness Anemia Qualifiers: Anemia type: unspecified type Qualified Code(s): D64.9 - Anemia, unspecified Low back pain Qualifiers: Chronicity: unspecified Back pain laterality: bilateral Sciatica presence: unspecified whether sciatica present Qualified Code(s): M54.5 - Low back pain Lung cancer Qualifiers: Laterality: unspecified laterality Lung location: unspecified part of lung Qualified Code(s): C34.90 - Malignant neoplasm of unspecified part of unspecified bronchus or lung Condition: Fair Disposition: ADMITTED INPATIENT Admitting Provider: Kwame (Hospitalist) Unit Admitted: Medical Floor
[2019-11-07] MEDS ORDERED: ONDANSETRON HCL INJ/PF 4 MG/2 ML SDV IV PRN (20:26)
--- NOTE | 2019-11-07 20:43 | PDOC H&P ---
History of Present Illness Admission Date/PCP: 11/07/19 19:59 GRETA CEDILLO PA-C History of Present Illness: Mikael WHEATLEY II is a 54 year old male with a history of stage IV lung cancer who is on chemotherapy that he gets about once a month who comes in with generalized weakness. He apparently has been getting progressively weaker since October 26. He has been taking fluids okay but his appetite is been very poor. He managed to get to the oncologist office today but was sent over here from that office in an ambulance. His labs are not too far off from what his baseline is, with a l ittle bit of chronic kidney disease, but he is extremely weak. His blood pressure was little elevated but has come down without intervention in the ER. He denies fever, chest pain, shortness of breath, cough, abdominal pain, nausea, vomiting, diarrhea, flank pain, or dysuria. His work-up in the ER was unremarkable. Past Medical History Cardiac Medical History: Reports: DVT, Hypertension, Peripheral Vascular Disease Denies: Congestive Heart Failure, Myocardial Infarction Pulmonary Medical History: Reports: Pneumonia Denies: Asthma, Bronchitis, Chronic Obstructive Pulmonary Disease (COPD), Tuberculosis Neurological Medical History: Denies: Migraine, Seizures Endocrine Medical History: Denies: Diabetes Mellitus Type 2, Hyperthyroidism, Hypothyroidism Renal/ Medical History: Denies: End Stage Renal Disease Malignancy Medical History: Reports: Lung Cancer GI Medical History: Reports: Gastroesophageal Reflux Disease Denies: Cirrhosis Musculoskeltal Medical History: Denies: Arthritis Psychiatric Medical History: Denies: Bipolar Disorder, Depression Traumatic Medical History: Denies: Gunshot Wound, Traumatic Brain Injury Hematology: Reports: Anemia Denies: Bleeding Tendencies Past Surgical History Past Surgical History: Reports: Other - Bronchoscopy x2 Social History Smoking Status: Unknown if Ever Smoked Electronic Cigarette use?: No Frequency of Alcohol Use: Heavy Hx Recreational Drug Use: No Drugs: None Hx Prescription Drug Abuse: No Family History Family History: Reviewed & Not Pertinent, Hypertension, Malignancy - Mother with breast cancer Parental Family History Reviewed: Yes Children Family History Reviewed: Yes Sibling(s) Family History Reviewed.: Yes Medication/Allergy Home Medications: Cefdinir 300 mg PO BID #20 capsule 09/29/19 Phenazopyridine HCl [Pyridium 200 mg Tablet] 200 mg PO TID #15 tablet 09/29/19 Lisinopril/Hydrochlorothiazide [Lisinopril-Hctz 20-25 mg Tab] 1 each PO DAILY 10/05/19 Potassium Chloride 40 meq PO DAILY 10/05/19 Thiamine HCl [B-1] 100 mg PO DAILY 10/05/19 Megestrol Acetate [Megace 20 Mg Tablet] 20 mg PO DAILY 30 Days #30 tablet 10/09/19 Megestrol Acetate [Megace 20 mg Tablet] 20 mg PO DAILY tablet 10/09/19 Cyanocobalamin/Cobamamide [B-12 5,000 Mcg Sublingual Tab] 1 each SL DAILY 30 Days #30 tab.subl 10/22/19 Chlorzoxazone [Parafon Forte Dsc 500 Mg Tablet] 500 mg PO BID #20 tablet 10/31/19 Cyproheptadine HCl [Periactin 4 Mg Tablet] 4 mg PO DAILY #10 tablet 10/31/19 Prednisone [Deltasone 20 mg Tablet] 2 tab PO DAILY 5 Days tablet 10/31/19 Morphine Sulfate [Morphine Ir 15 Mg Tablet] 15 mg PO Q4HP PRN #15 tablet 11/05/19 Ondansetron [Zofran Odt 4 mg Tablet] 1 - 2 tab PO Q4H PRN #15 tab.rapdis 11/05/19 Polyethylene Glycol 3350 [Miralax Powder 17 gm/Packet] 1 packet PO DAILY PRN #1 pkg 11/05/19 Tamsulosin HCl [Flomax 0.4 mg Cap.sr] 0.4 mg PO DAILY #7 cap.sr.24h 11/05/19 Allergies/Adverse Reactions: Penicillins Allergy (Verified 09/20/18 11:13) Review of Systems All systems: reviewed and no additional remarkable complaints except as stated - All systems were reviewed and were negative except as noted in the HPI Physical Exam Vital Signs: Temp Pulse Resp BP Pulse Ox 97.8 F 128 H 24 H 155/91 H 100 11/07/19 13:26 11/07/19 13:26 11/07/19 19:01 11/07/19 19:01 11/07/19 19:01 Intake & Output 11/06/19 11/07/19 11/08/19 06:59 06:59 06:59 Intake Total 1000 Output Total 100 Balance 900 Weight 83.2 kg General appearance: PRESENT: no acute distress, cooperative, disheveled Head exam: PRESENT: atraumatic, normocephalic Eye exam: PRESENT: EOMI, PERRLA. ABSENT: conjunctival injection, nystagmus, scleral icterus Ear exam: PRESENT: normal external ear exam Mouth exam: PRESENT: dry mucosa, neck supple Teeth exam: PRESENT: poor dentation Throat exam: ABSENT: post pharyngeal erythema Neck exam: PRESENT: full ROM. ABSENT: carotid bruit, JVD, lymphadenopathy, meningismus, tenderness, thyromegaly Respiratory exam: PRESENT: clear to auscultation joe, symmetrical, unlabored. ABSENT: accessory muscle use, chest wall tenderness, crackles, prolonged expiratory phas, rhonchi, tachypnea, wheezes Cardiovascular exam: PRESENT: RRR, +S1, +S2 Pulses: PRESENT: normal carotid pulses Vascular exam: PRESENT: normal capillary refill GI/Abdominal exam: PRESENT: normal bowel sounds, soft. ABSENT: distended, guarding, rebound, tenderness Extremities exam: ABSENT: clubbing, pedal edema Musculoskeletal exam: PRESENT: normal inspection. ABSENT: deformity Neurological exam: PRESENT: alert, awake, oriented to person, oriented to place, oriented to situation, CN II-XII grossly intact. ABSENT: motor sensory deficit Psychiatric exam: PRESENT: flat affect Skin exam: PRESENT: dry, warm Results Laboratory Results: 11/07/19 13:42 11/07/19 13:42 11/07/19 11/07/19 11/07/19 13:42 13:42 13:42 WBC 7.0 RBC 2.63 L Hgb 9.0 L Hct 25.9 L MCV 99 H MCH 34.1 H MCHC 34.6 RDW 25.4 H Plt Count 76 L Seg Neutrophils % Not Reportable Sodium 135.8 L Potassium 3.3 L Chloride 109 H Carbon Dioxide 20 L Anion Gap 7 BUN 27 H Creatinine 1.30 H Est GFR ( Amer) > 60 Glucose 110 Calcium 8.3 L Magnesium 1.5 L Total Bilirubin 0.6 AST 53 Alkaline Phosphatase 313 H Total Protein 6.4 Albumin 3.0 L Lipase 91.5 Urine Color Urine Appearance Urine pH Ur Specific [place] Urine Protein Urine Glucose (UA) Urine Ketones Urine Blood Urine Nitrite Ur Leukocyte Esterase Urine WBC (Auto) Urine RBC (Auto) 11/07/19 14:41 WBC RBC Hgb Hct MCV MCH MCHC RDW Plt Count Seg Neutrophils % Sodium Potassium Chloride Carbon Dioxide Anion Gap BUN Creatinine Est GFR ( Amer) Glucose Calcium Magnesium Total Bilirubin AST Alkaline Phosphatase Total Protein Albumin Lipase Urine Color YELLOW Urine Appearance SLIGHTLY-CLOUDY Urine pH 5.0 Ur Specific [place] 1.017 Urine Protein 100 H Urine Glucose (UA) NEGATIVE Urine Ketones NEGATIVE Urine Blood MODERATE H Urine Nitrite NEGATIVE Ur Leukocyte Esterase NEGATIVE Urine WBC (Auto) 4 Urine RBC (Auto) 20 Impressions: Chest X-Ray 11/07/19 13:35 IMPRESSION: Stable left upper lobe and right perihilar opacities from prior. Likely combination of known mass and postobstructive atelectasis/pneumonia. No evidence of new acute cardiopulmonary process. Abdomen/Pelvis CT 11/07/19 13:40 IMPRESSION: There is mild left hydroureter secondary to the presence of 5 mm calculus in the distal ureter. Intrarenal calculi are seen bilaterally. There is mild sigmoid diverticulosis. There is thickening of a segment of the sigmoid colon that could indicate inflammation or neoplasm. Chest CT 11/07/19 13:40 IMPRESSION: There is a worsening disease in the lungs and mediastinum. Metastatic disease to bone. Assessment and Plan - Diagnosis (1) Anemia Qualifiers: Anemia type: unspecified type Qualified Code(s): D64.9 - Anemia, unspecified Is this a current diagnosis for this admission?: Yes Plan: Close to his baseline (2) General weakness Is this a current diagnosis for this admission?: Yes Plan: Dr. Chavez asked that the patient be admitted and he will see the patient in consultation. Organ to give him some IV fluids and encourage him to eat. We will get physical therapy to see him. No definite cause for this right now other than physical decline, poor appetite, and deconditioning. (3) Hypokalemia Is this a current diagnosis for this admission?: Yes Plan: Place with supplement (4) Hypomagnesemia Is this a current diagnosis for this admission?: Yes Plan: Replaced with supplement (5) Lung cancer Qualifiers: Laterality: unspecified laterality Lung location: unspecified part of lung Qualified Code(s): C34.90 - Malignant neoplasm of unspecified part of unspecified bronchus or lung Is this a current diagnosis for this admission?: Yes (6) History of DVT of lower extremity Is this a current diagnosis for this admission?: Yes Plan: Continue anticoagulant - Time Time Spent with patient: 35 or more minutes
[2019-11-07] MEDS ORDERED: HYDRALAZINE HCL INJ/PF 20 MG/1 ML SDV IV ONE (21:26)
[2019-11-07] MEDS: RINGERS SOLUTION,LACTATED 1,000 ML IV PRN (21:40)
[2019-11-07] MEDS: MORPHINE SULFATE IR 15 MG TABLET PO PRN (23:36)
[2019-11-08] MEDS: MORPHINE SULFATE IR 15 MG TABLET PO PRN (03:54)
[2019-11-08 07:06] LABS: BLOOD UREA NITROGEN 21 mg/dL (7-20); CALCIUM 7.5 mg/dL (8.4-10.2); GLUCOSE 76 mg/dL (75-110); HEMATOCRIT 19.5 % (37.9-51.0); MEAN CORPUSCULAR HEMOGLOBIN 34.2 pg (27.0-33.4); MEAN CORPUSCULAR HGB CONC 34.6 g/dL (32.0-36.0); MEAN CORPUSCULAR VOLUME 99 fl (80-97); POTASSIUM 3.8 mmol/L (3.6-5.0); RED BLOOD COUNT 1.97 10^6/uL (4.35-5.55); WHITE BLOOD COUNT 4.4 10^3/uL (4.0-10.5)
[2019-11-08 07:12] LABS: CARBON DIOXIDE 19 mmol/L (22-30); CHLORIDE 110 mmol/L (98-107)
[2019-11-08 07:16] LABS: ANION GAP 4 (5-19)
[2019-11-08 07:53] LABS: PLATELET COUNT 50 10^3/uL (150-450)
[2019-11-08 07:56] LABS: HEMOGLOBIN 6.7 g/dL (13.5-17.0)
[2019-11-08] MEDS: RINGERS SOLUTION,LACTATED 1,000 ML IV PRN ×2 (07:58→09:22)
[2019-11-08] MEDS ORDERED: NORMAL SALINE 250 ML IV PRN ×2 (08:44)
[2019-11-08] MEDS ORDERED: HYDROCHLOROTHIAZIDE 12.5 MG TABLET PO SCH (08:45)
[2019-11-08] MEDS: TAMSULOSIN HCL 0.4 MG CAP.SR.24H PO SCH (09:21)
[2019-11-08] MEDS: MAGNESIUM SULFATE/D5W 1 GM/100 ML RTUPB IV SCH ×2 (09:21→10:51)
[2019-11-08] MEDS: LISINOPRIL 10 MG TABLET PO SCH (09:21)
[2019-11-08] MEDS ORDERED: NORMAL SALINE 1000 ML 1,000 ML IV ONE (11:00)
[2019-11-08] MEDS ORDERED: NORMAL SALINE 1000 ML 500 ML IV ONE (11:00)
[2019-11-08] MEDS ORDERED: HYDROCHLOROTHIAZIDE 12.5 MG TABLET PO ONE (11:02)
[2019-11-08] MEDS ORDERED: ACETAMINOPHEN 325 MG TABLET PO PRN (11:04)
--- NOTE | 2019-11-08 11:33 | PDOC PROGRESS REPORT ---
Subjective Progress Note for:: 11/08/19 Subjective:: Patient is pleasant this morning. He states he has been having very little appetite since October 26. Denies any nausea and states that that does not impede his food consumption. He has tried to get boost supplements to help his oral intake. Has not been very well-hydrated. States he has been getting very weak while at home. Denies fever or chills. Also complains of pain in his left hip that goes across to his right. Reason For Visit: WEAKNESS,STAGE 4 LUNG CA Physical Exam Vital Signs: Temp Pulse Resp BP Pulse Ox 98.1 F 121 H 18 166/88 H 100 11/08/19 07:39 11/08/19 07:39 11/08/19 07:39 11/08/19 07:39 11/08/19 07:39 Intake & Output 11/07/19 11/08/19 11/09/19 06:59 06:59 06:59 Intake Total 1680 1100 Output Total 375 Balance 1305 1100 Weight 60 kg General appearance: PRESENT: no acute distress, cooperative, thin. ABSENT: disheveled Neck exam: ABSENT: JVD Respiratory exam: PRESENT: clear to auscultation joe, unlabored. ABSENT: tachypnea, wheezes Cardiovascular exam: PRESENT: +S1, +S2, tachycardia. ABSENT: irregular rhythm GI/Abdominal exam: PRESENT: soft. ABSENT: rebound, rigid, tenderness Neurological exam: PRESENT: alert, awake, oriented to person, oriented to place, oriented to time Results Laboratory Results: 11/08/19 05:34 11/08/19 05:34 11/07/19 11/07/19 11/07/19 13:42 13:42 13:42 WBC 7.0 RBC 2.63 L Hgb 9.0 L Hct 25.9 L MCV 99 H MCH 34.1 H MCHC 34.6 RDW 25.4 H Plt Count 76 L Seg Neutrophils % Not Reportable Sodium 135.8 L Potassium 3.3 L Chloride 109 H Carbon Dioxide 20 L Anion Gap 7 BUN 27 H Creatinine 1.30 H Est GFR ( Amer) > 60 Glucose 110 Calcium 8.3 L Magnesium 1.5 L Total Bilirubin 0.6 AST 53 Alkaline Phosphatase 313 H Total Protein 6.4 Albumin 3.0 L Lipase 91.5 Urine Color Urine Appearance Urine pH Ur Specific [place] Urine Protein Urine Glucose (UA) Urine Ketones Urine Blood Urine Nitrite Ur Leukocyte Esterase Urine WBC (Auto) Urine RBC (Auto) Blood Type Antibody Screen 11/07/19 11/08/19 11/08/19 14:41 05:34 05:34 WBC 4.4 RBC 1.97 L Hgb 6.7 L D Hct 19.5 L MCV 99 H MCH 34.2 H MCHC 34.6 RDW 25.0 H Plt Count 50 L Seg Neutrophils % Sodium 133.3 L Potassium 3.8 Chloride 110 H Carbon Dioxide 19 L Anion Gap 4 L BUN 21 H Creatinine 0.98 Est GFR ( Amer) > 60 Glucose 76 Calcium 7.5 L Magnesium 1.3 L Total Bilirubin AST Alkaline Phosphatase Total Protein Albumin Lipase Urine Color YELLOW Urine Appearance SLIGHTLY-CLOUDY Urine pH 5.0 Ur Specific [place] 1.017 Urine Protein 100 H Urine Glucose (UA) NEGATIVE Urine Ketones NEGATIVE Urine Blood MODERATE H Urine Nitrite NEGATIVE Ur Leukocyte Esterase NEGATIVE Urine WBC (Auto) 4 Urine RBC (Auto) 20 Blood Type Antibody Screen 11/08/19 09:11 WBC RBC Hgb Hct MCV MCH MCHC RDW Plt Count Seg Neutrophils % Sodium Potassium Chloride Carbon Dioxide Anion Gap BUN Creatinine Est GFR ( Amer) Glucose Calcium Magnesium Total Bilirubin AST Alkaline Phosphatase Total Protein Albumin Lipase Urine Color Urine Appearance Urine pH Ur Specific [place] Urine Protein Urine Glucose (UA) Urine Ketones Urine Blood Urine Nitrite Ur Leukocyte Esterase Urine WBC (Auto) Urine RBC (Auto) Blood Type A NEGATIVE Antibody Screen NEGATIVE Impressions: Chest X-Ray 11/07/19 13:35 IMPRESSION: Stable left upper lobe and right perihilar opacities from prior. Likely combination of known mass and postobstructive atelectasis/pneumonia. No evidence of new acute cardiopulmonary process. Abdomen/Pelvis CT 11/07/19 13:40 IMPRESSION: There is mild left hydroureter secondary to the presence of 5 mm calculus in the distal ureter. Intrarenal calculi are seen bilaterally. There is mild sigmoid diverticulosis. There is thickening of a segment of the sigmoid colon that could indicate inflammation or neoplasm. Chest CT 11/07/19 13:40 IMPRESSION: There is a worsening disease in the lungs and mediastinum. Metastatic disease to bone. Assessment and Plan - Diagnosis (1) Anemia of chronic disease Is this a current diagnosis for this admission?: Yes Plan: Anemia work-up last month was consistent with anemia of chronic disease. Likely secondary to malignancy. Does also have folic acid deficiency for which he is taking folate-we will continue. Hemoglobin is 6.7 today and we will transfuse patient some PRBC. Have discussed with patient and he is agreeable. He denies any hematochezia, melena, hematuria, hemoptysis or other forms of blood loss. Repeat CBC in the morning. (2) General weakness Is this a current diagnosis for this admission?: Yes Plan: Patient has been experiencing poor appetite, anorexia and generalized weakness for almost 2 weeks now. Blood work is consistent with dehydration and likely some mild to moderate malnutrition. This is related to wasting from his cancer. We will continue IV fluids. YANNA seems to be resolved with IV fluid administration. Have instructed staff to get boost supplements for patient. I will also try an appetite stimulant. Dietitian has been consulted. Physical therapy (3) Metastatic lung cancer (metastasis from lung to other site) Qualifiers: Laterality: unspecified laterality Qualified Code(s): C34.90 - Malignant neoplasm of unspecified part of unspecified bronchus or lung Is this a current diagnosis for this admission?: Yes Plan: Patient last received chemo a year ago. Chest CT imaging results reviewed by me which shows right hilar/perihilar mass has worsened to 5.6 x 5.6 cm, still notes metastatic disease to left fourth and fifth ribs. CT also shows considerable opacification with groundglass of his left upper and left lower lung lobes with left pleural-based mass of 3.6 cm. Patient does have history of radiation to the left lung and some of the findings in the left lung may be secondary to radiation pneumonitis and not a pneumonia. Regarding patient's metastatic malignancy, Dr. Chavez will be following with plans to likely discuss goals of care. (4) Tachycardia Is this a current diagnosis for this admission?: Yes Plan: Tachycardic in the 120s. Will check EKG. I suspect this is likely secondary to anemia and dehydration. Hopefully she will improve with IV fluids and blood transfusion. (5) Ureteral stone with hydronephrosis Is this a current diagnosis for this admission?: Yes Plan: Noted with mild hydronephrosis of the left. Will give IV fluids and continue tamsulosin. Ureteric calculus is small and only about 5 mm and as such likely will not warrant any intervention at this time. (6) Hypokalemia Is this a current diagnosis for this admission?: Yes Plan: Continue KCl supplements (7) Hypomagnesemia Is this a current diagnosis for this admission?: Yes (8) HTN (hypertension) Qualifiers: Hypertension type: essential hypertension Qualified Code(s): I10 - Essential (primary) hypertension Is this a current diagnosis for this admission?: Yes Plan: Uncontrolled this morning. Lisinopril and hydrochlorothiazide resumed (9) History of DVT of lower extremity Is this a current diagnosis for this admission?: Yes Plan: Med reconciliation performed and he is not on any anticoagulation. AC may have been discontinued. I will defer to hematology regarding this. (10) Thrombocytopenia Is this a current diagnosis for this admission?: Yes Plan: Stable history of thrombocytopenia. No need for transfusion except if platelet drops below 10,000. - Time Time Spent with patient: 15-24 minutes
--- NOTE | 2019-11-08 13:20 | EKG REPORT ---
SEVERITY:- ABNORMAL ECG - SINUS TACHYCARDIA PROBABLE INFERIOR INFARCT, OLD : Confirmed by: Pato Farmer MD 08-Nov-2019 13:19:24
[2019-11-08] MEDS: MEGESTROL ACETATE SUSP 400 MG/10 ML UDCUP PO SCH (14:14)
[2019-11-08] MEDS ORDERED: SENNOSIDES/DOCUSATE 8.6-50 MG 1 EACH TABLET PO SCH (18:00)
[2019-11-08] MEDS: CHLORZOXAZONE 500 MG TABLET PO SCH (18:48)
[2019-11-08] MEDS: OXYCODONE HCL IR 5 MG TABLET PO PRN (22:01)
[2019-11-08] MEDS: MORPHINE SULFATE 10 MG/ML INJ IV PRN (23:42)
[2019-11-09 02:59] LABS: HEMATOCRIT 29.7 % (37.9-51.0); MEAN CORPUSCULAR HEMOGLOBIN 33.6 pg (27.0-33.4); MEAN CORPUSCULAR HGB CONC 35.3 g/dL (32.0-36.0); RED BLOOD COUNT 3.12 10^6/uL (4.35-5.55); RED CELL DISTRIBUTION WIDTH 20.9 % (11.5-14.0); WHITE BLOOD COUNT 6.9 10^3/uL (4.0-10.5)
[2019-11-09 03:04] LABS: HEMOGLOBIN 10.5 g/dL (13.5-17.0)
[2019-11-09 03:05] LABS: MEAN CORPUSCULAR VOLUME 95 fl (80-97); PLATELET COUNT 56 10^3/uL (150-450)
[2019-11-09 03:09] LABS: BLOOD UREA NITROGEN 21 mg/dL (7-20); CALCIUM 7.8 mg/dL (8.4-10.2); CARBON DIOXIDE 19 mmol/L (22-30); CHLORIDE 110 mmol/L (98-107); GLUCOSE 119 mg/dL (75-110)
[2019-11-09 03:16] LABS: ANION GAP 4 (5-19); POTASSIUM 2.9 mmol/L (3.6-5.0)
[2019-11-09 03:21] LABS: ABSOLUTE LYMPHOCYTES# (MANUAL) 0.3 10^3/uL (0.5-4.7); ABSOLUTE MONOCYTES # (MANUAL) 0.2 10^3/uL (0.1-1.4); BAND NEUTROPHILS % (MANUAL) 4 % (3-5); BASOPHILS % (MANUAL) 0 % (0-2); EOSINOPHILS % (MANUAL) 1 % (0-6); LYMPHOCYTES % (MANUAL) 4 % (13-45); MONOCYTES % (MANUAL) 3 % (3-13); SEGMENTED NEUTROPHILS % (MAN) 88 % (42-78); TOTAL CELLS COUNTED 100
[2019-11-09 03:25] LABS: ANISOCYTOSIS 2+
[2019-11-09 03:26] LABS: BURR CELLS SLIGHT; OVALOCYTES SLIGHT; POIKILOCYTOSIS SLIGHT
[2019-11-09 03:27] LABS: PLATELET COMMENT DECREASED; POLYCHROMASIA SLIGHT
[2019-11-09] MEDS ORDERED: POTASSIUM CHLORIDE 10 MEQ TABLET.ER PO ONE (04:00)
[2019-11-09] MEDS: MAGNESIUM SULFATE 1 GM/D5W 100 ML IV SCH ×2 (04:09→05:26)
[2019-11-09] MEDS: OXYCODONE HCL IR 5 MG TABLET PO PRN (04:10)
[2019-11-09] MEDS: POTASSI CL 20 MEQ/50 ML RIDER 20 MEQ/50 ML RTUPB IV SCH ×2 (08:38→10:53)
[2019-11-09] MEDS ORDERED: NORMAL SALINE 1000 ML 500 ML IV ONE (09:18)
[2019-11-09] MEDS: POTASSIUM CHLORIDE 10 MEQ TABLET.ER PO SCH (09:34)
[2019-11-09] MEDS: FERROUS SULFATE 325 MG TABLET PO SCH (09:35)
[2019-11-09] MEDS: LISINOPRIL 10 MG TABLET PO SCH (09:35)
[2019-11-09] MEDS: TAMSULOSIN HCL 0.4 MG CAP.SR.24H PO SCH (09:35)
[2019-11-09] MEDS: FOLIC ACID 1 MG TABLET PO SCH (09:35)
[2019-11-09] MEDS: AMLODIPINE BESYLATE 5 MG TABLET PO SCH (09:35)
[2019-11-09] MEDS ORDERED: HYDROCHLOROTHIAZIDE 12.5 MG TABLET PO SCH (10:00)
[2019-11-09] MEDS ORDERED: HYDROCHLOROTHIAZIDE 25 MG TABLET PO SCH (10:00)
[2019-11-09] MEDS: MEGESTROL ACETATE SUSP 400 MG/10 ML UDCUP PO SCH (10:04)
[2019-11-09] MEDS: CHLORZOXAZONE 500 MG TABLET PO SCH ×2 (10:04→17:55)
[2019-11-09] MEDS: GUAIFENESIN/D-METHORPHAN (200-20 MG) SYRUP 10 ML PO SCH ×3 (10:05→17:55)
[2019-11-09] MEDS: CODEINE SULF 15 MG TABLET PO SCH ×3 (10:52→17:54)
[2019-11-09] MEDS: CYPROHEPTADINE HCL 4 MG TABLET PO SCH (10:53)
[2019-11-09] MEDS: NICOTINE 14 MG/24 HR PATCH.TD24 TD PRN (13:24)
--- NOTE | 2019-11-09 14:54 | PDOC PROGRESS REPORT ---
Subjective Progress Note for:: 11/09/19 Subjective:: Patient started having hemoptysis this morning. Giving him a graduated cough to cough into so we can quantify it. Also having bouts of coughing fits. Denies chest pain. Still feels very weak and fatigued. Reason For Visit: YANNA/DEHYDRATION,WEAKNESS DUE TO ACUTE ANEMIA,STAGE Physical Exam Vital Signs: Temp Pulse Resp BP Pulse Ox 97.3 F 118 H 17 146/94 H 95 11/09/19 11:28 11/09/19 14:00 11/09/19 11:28 11/09/19 11:28 11/09/19 11:28 Intake & Output 11/08/19 11/09/19 11/10/19 06:59 06:59 06:59 Intake Total 1680 4026 580 Output Total 375 300 100 Balance 1305 3726 480 Weight 60 kg 61.7 kg General appearance: PRESENT: no acute distress, cooperative, thin, other - Appears fatigued Neck exam: ABSENT: JVD Respiratory exam: PRESENT: rhonchi, symmetrical, unlabored. ABSENT: accessory muscle use, retraction, tachypnea, wheezes Cardiovascular exam: PRESENT: +S1, +S2, tachycardia. ABSENT: irregular rhythm GI/Abdominal exam: PRESENT: soft. ABSENT: rebound, rigid, tenderness Neurological exam: PRESENT: alert, awake, oriented to person, oriented to place, oriented to time, oriented to situation Results Laboratory Results: 11/09/19 02:45 11/09/19 02:45 11/08/19 11/09/19 11/09/19 09:11 02:45 02:45 WBC 6.9 RBC 3.12 L Hgb 10.5 L D Hct 29.7 L MCV 95 D MCH 33.6 H MCHC 35.3 RDW 20.9 H Plt Count 56 L Seg Neutrophils % Not Reportable Sodium 132.7 L Potassium 2.9 L* Chloride 110 H Carbon Dioxide 19 L Anion Gap 4 L BUN 21 H Creatinine 1.08 Est GFR ( Amer) > 60 Glucose 119 H Calcium 7.8 L Magnesium 1.6 Blood Type A NEGATIVE Antibody Screen NEGATIVE 11/07/19 14:41 Clean Catch Midstream Urine Culture - Final Mixed Urogenital Martha Impressions: Chest X-Ray 11/07/19 13:35 IMPRESSION: Stable left upper lobe and right perihilar opacities from prior. Likely combination of known mass and postobstructive atelectasis/pneumonia. No evidence of new acute cardiopulmonary process. Abdomen/Pelvis CT 11/07/19 13:40 IMPRESSION: There is mild left hydroureter secondary to the presence of 5 mm calculus in the distal ureter. Intrarenal calculi are seen bilaterally. There is mild sigmoid diverticulosis. There is thickening of a segment of the sigmoid colon that could indicate inflammation or neoplasm. Chest CT 11/07/19 13:40 IMPRESSION: There is a worsening disease in the lungs and mediastinum. Metastatic disease to bone. Assessment and Plan - Diagnosis (1) Hemoptysis Is this a current diagnosis for this admission?: Yes Plan: Developed hemoptysis this morning. Graduated cup has been provided at bedside for adequate quantification of hemoptysis. Most likely cause of hemoptysis is lung cancer. 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 Tells me his last VTE episode was over a year ago. Also a potential etiology. I have kept his Xarelto on hold since admission. Start on Robitussin DM and codeine for his cough fits as this could be worsening his hemoptysis. IV fluid hydration. Monitor vital signs closely. Check CBC in the morning. I will await discussion between oncologist and patient regarding goals of care and potential hospice before deciding whether to pursue CTA chest for PE evaluation to determine if anticoagulation is needed. (2) General weakness Is this a current diagnosis for this admission?: Yes Plan: Patient has been experiencing poor appetite, anorexia and generalized weakness for almost 2 weeks now. Blood work is consistent with dehydration and likely some mild to moderate malnutrition. This is related to wasting from his cancer. We will continue IV fluids. YANNA seems to be resolved with IV fluid administration. Continue boost supplements. Dietitian consulted. Continue Megace. Patient declined physical therapy this afternoon. (3) Anemia of chronic disease Is this a current diagnosis for this admission?: Yes Plan: Anemia work-up last month was consistent with anemia of chronic disease. Likely secondary to malignancy. Does also have folic acid deficiency for which he is taking folate-we will continue. Hemoglobin up to 10 today after receiving blood transfusion yesterday. Continue to monitor CBC especially in light of hemoptysis. (4) Tachycardia Is this a current diagnosis for this admission?: Yes Plan: Remains tachycardic even despite improvement of anemia continue IV fluids. EKG showing sinus tachycardia. Placed on telemetry. (5) Metastatic lung cancer (metastasis from lung to other site) Qualifiers: Laterality: unspecified laterality Qualified Code(s): C34.90 - Malignant neoplasm of unspecified part of unspecified bronchus or lung Is this a current diagnosis for this admission?: Yes Plan: Patient states that he last received chemo a year ago. Chest CT shows right hilar/perihilar mass has worsened to 5.6 x 5.6 cm, still notes metastatic disease to left fourth and fifth ribs. CT also shows considerable opacification with groundglass of his left upper and left lower lung lobes with left pleural-based mass of 3.6 cm. Patient does have history of radiation to the left lung and some of the findings in the left lung may be secondary to radiation pneumonitis and not a pneumonia. Patient also has poor functional status at this time. This may inhibit his candidacy for chemo. Oncology consulted. (6) Ureteral stone with hydronephrosis Is this a current diagnosis for this admission?: Yes Plan: Noted with mild hydronephrosis of the left. IV fluids and continue tamsulosin. Ureteric calculus is small and only about 5 mm and as such likely will not warra nt any intervention at this time. (7) Hypokalemia Is this a current diagnosis for this admission?: Yes Plan: Potassium is 2.9 today. He denies nausea or vomiting but did admit to diarrhea. I have discontinued his stool softeners. Replete aggressively with IV and p.o. potassium. Recheck BMP this afternoon. (8) Hypomagnesemia Is this a current diagnosis for this admission?: Yes Plan: Resolved following repletion. (9) HTN (hypertension) Qualifiers: Hypertension type: essential hypertension Qualified Code(s): I10 - Essential (primary) hypertension Is this a current diagnosis for this admission?: Yes Plan: Uncontrolled this morning. Continue lisinopril. We will hold hydrochlorothiazide given hypokalemia. Placed on amlodipine in the meantime. (10) History of DVT of lower extremity Is this a current diagnosis for this admission?: Yes Plan: Have confirmed the patient is on Xarelto at home for DVT/PE history. Currently Xarelto is on hold due to hemoptysis. (11) Thrombocytopenia Is this a current diagnosis for this admission?: Yes Plan: Stable history of thrombocytopenia. No need for transfusion except if platelet drops below 10,000. - Time Time Spent with patient: 15-24 minutes Anticipated discharge: Home Within: within 72 hours
[2019-11-09 15:54] LABS: BLOOD UREA NITROGEN 20 mg/dL (7-20); CALCIUM 7.8 mg/dL (8.4-10.2); GLUCOSE 122 mg/dL (75-110)
[2019-11-09 15:59] LABS: ANION GAP 5 (5-19); CARBON DIOXIDE 18 mmol/L (22-30); CHLORIDE 109 mmol/L (98-107)
[2019-11-09 16:15] LABS: POTASSIUM 4.1 mmol/L (3.6-5.0)
[2019-11-09] MEDS: MAGNESIUM OXIDE 400 MG TABLET PO SCH (17:46)
[2019-11-09] MEDS: RINGERS SOLUTION,LACTATED 1,000 ML IV PRN (18:01)
--- NOTE | 2019-11-09 18:48 | PDOC CONSULTATION ---
Consultation Consult Date: 11/09/19 Provider Consulted: JANETH HAMM Consult reason:: Hematology/Oncology consultation was requested for patient with metastatic lung cancer receiving palliative treatment with worsening weakness and tachycardia. History of Present Illness Admission Date/PCP: 11/09/19 08:06 GRETA CEDILLO PA-C History of Present Illness: Mikael WHEATLEY II is a 54 year old male who has been receiving immunotherapy for his lung cancer, but most recent scans have shown progression of disease. He lives alone with no family or caregivers. He was sent to the ED by EMS from our [facility] due to inability to walk and progressive weakness. He has been treated for GI bleed and continues to have tachycardia, back pain, and continued weakness. He states that he is no longer able to walk or get to the bedside commode. He has continued pain in his back which radiates down his left lag and into the right hip. He has no appetite. Past Medical History Cardiac Medical History: Reports: DVT, Hypertension, Peripheral Vascular Disease Denies: Congestive Heart Failure, Myocardial Infarction Pulmonary Medical History: Reports: Pneumonia Denies: Asthma, Bronchitis, Chronic Obstructive Pulmonary Disease (COPD), Tuberculosis Neurological Medical History: Denies: Migraine, Seizures Endocrine Medical History: Denies: Diabetes Mellitus Type 2, Hyperthyroidism, Hypothyroidism Renal/ Medical History: Denies: End Stage Renal Disease Malignancy Medical History: Reports: Lung Cancer GI Medical History: Reports: Gastroesophageal Reflux Disease Denies: Cirrhosis Musculoskeltal Medical History: Denies: Arthritis Psychiatric Medical History: Denies: Bipolar Disorder, Depression Traumatic Medical History: Denies: Gunshot Wound, Traumatic Brain Injury Hematology: Reports: Anemia Denies: Bleeding Tendencies Past Surgical History Past Surgical History: Reports: Other - Bronchoscopy x2 Social History Lives with: Alone Smoking Status: Current Every Day Smoker Electronic Cigarette use?: No Frequency of Alcohol Use: Heavy Hx Recreational Drug Use: No Drugs: None Hx Prescription Drug Abuse: No Family History Family History: Reviewed & Not Pertinent, Hypertension, Malignancy - Mother with breast cancer Parental Family History Reviewed: Yes Children Family History Reviewed: No Sibling(s) Family History Reviewed.: No Medication/Allergy Home Medications: Lisinopril/Hydrochlorothiazide [Lisinopril-Hctz 20-25 mg Tab] 1 each PO DAILY 10/05/19 Potassium Chloride 20 meq PO DAILY 10/05/19 Chlorzoxazone [Parafon Forte Dsc 500 Mg Tablet] 500 mg PO BID #20 tablet 10/31/19 Cyproheptadine HCl [Periactin 4 Mg Tablet] 4 mg PO DAILY #10 tablet 10/31/19 Tamsulosin HCl [Flomax 0.4 mg Cap.sr] 0.4 mg PO DAILY #7 cap.sr.24h 11/05/19 Ferrous Sulfate [Feosol 325 mg Tablet] 325 mg PO DAILY 11/08/19 Folic Acid 1 mg PO DAILY 11/08/19 Ondansetron [Zofran Odt 4 mg Tablet] 1 tab PO Q4H PRN 11/08/19 Oxycodone HCl [Oxy-Ir 5 mg Tablet] 5 mg PO Q6HP PRN 11/08/19 Allergies/Adverse Reactions: Penicillins Allergy (Verified 09/20/18 11:13) Review of Systems Constitutional: PRESENT: fatigue. ABSENT: fever(s), headache(s) Eyes: ABSENT: visual disturbances Ears: ABSENT: hearing changes Nose, Mouth, and Throat: ABSENT: sore throat Cardiovascular: ABSENT: chest pain Respiratory: ABSENT: dyspnea Gastrointestinal: PRESENT: hematemesis Genitourinary: ABSENT: dysuria Musculoskeletal: PRESENT: back pain Integumentary: ABSENT: rash Neurological: PRESENT: lack of coordination, weakness Psychiatric: PRESENT: depression Hematologic/Lymphatic: ABSENT: easy bleeding Physical Exam Vital Signs: Temp Pulse Resp BP Pulse Ox 97.3 F 118 H 17 146/94 H 95 11/09/19 11:28 11/09/19 14:00 11/09/19 11:28 11/09/19 11:28 11/09/19 11:28 Intake & Output 11/08/19 11/09/19 11/10/19 06:59 06:59 06:59 Intake Total 1680 4026 1080 Output Total 375 300 100 Balance 1305 3726 980 Weight 60 kg 61.7 kg General appearance: PRESENT: no acute distress, thin, well-developed Exam: 54 year old male. Head exam: PRESENT: atraumatic, normocephalic Eye exam: PRESENT: EOMI Mouth exam: PRESENT: tongue midline Neck exam: ABSENT: lymphadenopathy, tenderness Respiratory exam: PRESENT: clear to auscultation joe, unlabored Cardiovascular exam: PRESENT: tachycardia GI/Abdominal exam: PRESENT: normal bowel sounds, soft. ABSENT: tenderness Extremities exam: PRESENT: other - chronic woody edema changes bilateral ankles. Neurological exam: PRESENT: alert, awake, oriented to person, oriented to place, oriented to time, oriented to situation Psychiatric exam: PRESENT: appropriate affect Skin exam: PRESENT: normal color Results Laboratory Results: 11/09/19 02:45 11/09/19 14:58 11/08/19 11/09/19 11/09/19 09:11 02:45 02:45 WBC 6.9 RBC 3.12 L Hgb 10.5 L D Hct 29.7 L MCV 95 D MCH 33.6 H MCHC 35.3 RDW 20.9 H Plt Count 56 L Seg Neutrophils % Not Reportable Sodium 132.7 L Potassium 2.9 L* Chloride 110 H Carbon Dioxide 19 L Anion Gap 4 L BUN 21 H Creatinine 1.08 Est GFR ( Amer) > 60 Glucose 119 H Calcium 7.8 L Magnesium 1.6 Blood Type A NEGATIVE Antibody Screen NEGATIVE 11/09/19 14:58 WBC RBC Hgb Hct MCV MCH MCHC RDW Plt Count Seg Neutrophils % Sodium 131.6 L Potassium 4.1 D Chloride 109 H Carbon Dioxide 18 L Anion Gap 5 BUN 20 Creatinine 1.00 Est GFR ( Amer) > 60 Glucose 122 H Calcium 7.8 L Magnesium Blood Type Antibody Screen 11/07/19 14:41 Clean Catch Midstream Urine Culture - Final Mixed Urogenital Martha Impressions: Chest X-Ray 11/07/19 13:35 IMPRESSION: Stable left upper lobe and right perihilar opacities from prior. Likely combination of known mass and postobstructive atelectasis/pneumonia. No evidence of new acute cardiopulmonary process. Abdomen/Pelvis CT 11/07/19 13:40 IMPRESSION: There is mild left hydroureter secondary to the presence of 5 mm calculus in the distal ureter. Intrarenal calculi are seen bilaterally. There is mild sigmoid diverticulosis. There is thickening of a segment of the sigmoid colon that could indicate inflammation or neoplasm. Chest CT 11/07/19 13:40 IMPRESSION: There is a worsening disease in the lungs and mediastinum. Metastatic disease to bone. Status: Image reviewed by me Assessment & Plan - Diagnosis (1) General weakness Is this a current diagnosis for this admission?: Yes Plan: I discussed overall plan with the patient in detail. Although he is open to the idea of Hospice, he does not believe he will be able to manage at home. He would like to have SNF placement. Although he would like to try physical therapy and rehabilitation, he is not sure if this will be possible. He has no family or caregivers. (2) Low back pain Qualifiers: Chronicity: unspecified Back pain laterality: bilateral Sciatica presence: unspecified whether sciatica present Qualified Code(s): M54.5 - Low back pain Is this a current diagnosis for this admission?: Yes Plan: Continue PRN medications and consider long-acting. (3) Lung cancer Qualifiers: Laterality: unspecified laterality Lung location: unspecified part of lung Qualified Code(s): C34.90 - Malignant neoplasm of unspecified part of unspecified bronchus or lung Is this a current diagnosis for this admission?: Yes Plan: I discussed with the patient the fact that his current treatment is no longer working. He is not strong enough to try a new type of chemo. He would need to be much stronger before this may be possible and if cancer continues to grow, he may never be able to get stronger. (4) Tachycardia Is this a current diagnosis for this admission?: Yes Plan: Most likely due to the cancer. He also has GI bleed. His blood thinners have been stopped. I do not believe aggressive work-up and treatment for this will benefit the patient. Again, would consider a palliative approach and only treat patient's symptoms. - Plan Summary Plan Summary: patient was discussed with Dr. Chavez and Dr. Thacker.
[2019-11-10] MEDS: MORPHINE SULFATE 10 MG/ML INJ IV PRN (05:07)
[2019-11-10] MEDS: RINGERS SOLUTION,LACTATED 1,000 ML IV PRN (05:08)
[2019-11-10 05:57] LABS: HEMATOCRIT 30.9 % (37.9-51.0); HEMOGLOBIN 10.8 g/dL (13.5-17.0); MEAN CORPUSCULAR HEMOGLOBIN 33.6 pg (27.0-33.4); MEAN CORPUSCULAR HGB CONC 34.9 g/dL (32.0-36.0); MEAN CORPUSCULAR VOLUME 96 fl (80-97); RED BLOOD COUNT 3.21 10^6/uL (4.35-5.55); RED CELL DISTRIBUTION WIDTH 21.3 % (11.5-14.0); WHITE BLOOD COUNT 7.1 10^3/uL (4.0-10.5)
[2019-11-10 06:15] LABS: PLATELET COUNT 48 10^3/uL (150-450)
[2019-11-10 09:04] LABS: ANION GAP 6 (5-19); BLOOD UREA NITROGEN 21 mg/dL (7-20); CALCIUM 8.2 mg/dL (8.4-10.2); CARBON DIOXIDE 17 mmol/L (22-30); CHLORIDE 109 mmol/L (98-107); GLUCOSE 93 mg/dL (75-110); POTASSIUM 3.5 mmol/L (3.6-5.0)
[2019-11-10] MEDS: TAMSULOSIN HCL 0.4 MG CAP.SR.24H PO SCH (09:06)
[2019-11-10] MEDS: AMLODIPINE BESYLATE 5 MG TABLET PO SCH (09:06)
[2019-11-10] MEDS: POTASSIUM CHLORIDE 10 MEQ TABLET.ER PO SCH (09:07)
[2019-11-10] MEDS: MAGNESIUM OXIDE 400 MG TABLET PO SCH ×2 (09:07→17:16)
[2019-11-10] MEDS: FERROUS SULFATE 325 MG TABLET PO SCH (09:07)
[2019-11-10] MEDS: FOLIC ACID 1 MG TABLET PO SCH (09:07)
[2019-11-10] MEDS: LISINOPRIL 10 MG TABLET PO SCH (09:07)
[2019-11-10] MEDS: CODEINE SULF 15 MG TABLET PO SCH ×4 (09:07→21:41)
[2019-11-10] MEDS: MEGESTROL ACETATE SUSP 400 MG/10 ML UDCUP PO SCH (09:08)
[2019-11-10] MEDS: CHLORZOXAZONE 500 MG TABLET PO SCH ×2 (09:09→17:16)
[2019-11-10] MEDS: GUAIFENESIN/D-METHORPHAN (200-20 MG) SYRUP 10 ML PO SCH ×3 (09:09→17:15)
[2019-11-10] MEDS: CYPROHEPTADINE HCL 4 MG TABLET PO SCH (09:09)
[2019-11-10] MEDS: METOPROLOL TARTRATE 25 MG TABLET PO SCH ×3 (09:11→17:16)
--- NOTE | 2019-11-10 13:23 | CDI QUERY ---
<KEV OWENS - Last Filed: 11/10/19 13:21> CDI Query CDI Review: Dear Provider: We are seeking further clarification of documentation to reflect the severity of illness of your patient. Per Oncology Notes: He was sent to the ED by EMS from our office due to inability to walk and progressive weakness. He has been treated for GI bleed and continues to have tachycardia, back pain, and continued weakness. Labs: Date 11/07/19 11/08/19 11/09/19 11/10/19 H/H 9.0 / 25.9 6.7 / 19.5 10.5 / 29.7 10.8 / 30.9 Plts 76 50 56 48 Transfused PRBC 11/08/2019 Per Progress Note 11/09/19: Patient started having hemoptysis this morning. Based on your medical judgement, please further clarify in the Progress Notes GI bleed No GI bleed Unable to determine Acute blood loss anemia 2/2 to GI bleed Acute blood loss anemia 2/2 to hemoptysis No acute blood loss anemia Anemia 2/2 to metastatic cancer only Unable to determine Thank you for your consideration. YAMILET WhiteN RN Clinical [facility] Counselor Physician Advisor <PATIENCE WILCOX - Last Filed: 11/10/19 13:51> CDI Query Agree with Query: No - patient is not having any GI bleed. Anemia of chronic disease 2/2 cancer.
--- NOTE | 2019-11-10 13:38 | RADIOLOGY REPORT (SQ) ---
EXAM DESCRIPTION: CHEST SINGLE VIEW IMAGES COMPLETED DATE/TIME: 11/10/2019 1:06 pm REASON FOR STUDY: shortness of breath, lung cancer. COMPARISON: 10/22/2019 EXAM PARAMETERS: NUMBER OF VIEWS: One view. TECHNIQUE: Single frontal radiographic view of the chest acquired. RADIATION DOSE: NA LIMITATIONS: None. FINDINGS: LUNGS AND PLEURA: Increasing opacity in the left upper lobe. Perihilar opacity on the rig ht. MEDIASTINUM AND HILAR STRUCTURES: Wide mediastinum related to adenopathy. HEART AND VASCULAR STRUCTURES: Heart normal in size. Normal vasculature. BONES: No acute findings. HARDWARE: None in the chest. OTHER: No other significant finding. IMPRESSION: Progression of disease. Increasing left upper lobe opacity. Increasing adenopathy in t he mediastinum. TECHNICAL DOCUMENTATION: JOB ID: [id number] 2010 [employer]- All Rights Reserved Reading location - IP/workstation name: [email or web address]
[2019-11-10] MEDS ORDERED: LORAZEPAM INJ 2 MG/1 ML VIAL IV PRN (13:57)
--- NOTE | 2019-11-10 14:06 | PDOC PROGRESS REPORT ---
Subjective Progress Note for:: 11/10/19 Subjective:: Patient still opting for full treatment after having conversation with oncology yesterday about hospice. Patient still admits to having quite a bit of hemoptysis. He does not feel any worsening of his shortness of breath but has remained tachycardic on telemetry. He also has notable airway rhonchi. Denies chest pain at this time. Reason For Visit: YANNA/DEHYDRATION,WEAKNESS DUE TO ACUTE ANEMIA,STAGE Physical Exam Vital Signs: Temp Pulse Resp BP Pulse Ox 97.9 F 129 H 24 H 128/81 H 97 11/10/19 07:50 11/10/19 07:50 11/10/19 07:50 11/10/19 07:50 11/10/19 07:50 Intake & Output 11/09/19 11/10/19 11/11/19 06:59 06:59 06:59 Intake Total 4026 2740 Output Total 300 102 Balance 3726 2638 Weight 61.7 kg 61.7 kg General appearance: PRESENT: no acute distress, cooperative Neck exam: ABSENT: JVD Respiratory exam: PRESENT: rhonchi - upper airway, symmetrical, tachypnea, unlabored. ABSENT: accessory muscle use, retraction, wheezes Cardiovascular exam: PRESENT: +S1, +S2, tachycardia. ABSENT: irregular rhythm GI/Abdominal exam: PRESENT: soft. ABSENT: rebound, rigid, tenderness Neurological exam: PRESENT: alert, awake, oriented to person, oriented to place, oriented to time, oriented to situation Results Laboratory Results: 11/10/19 05:19 11/10/19 05:19 11/09/19 11/10/19 11/10/19 14:58 05:19 05:19 WBC 7.1 RBC 3.21 L Hgb 10.8 L Hct 30.9 L MCV 96 MCH 33.6 H MCHC 34.9 RDW 21.3 H Plt Count 48 L Sodium 131.6 L Potassium 4.1 D Chloride 109 H Carbon Dioxide 18 L Anion Gap 5 BUN 20 Creatinine 1.00 Est GFR ( Amer) > 60 Glucose 122 H Calcium 7.8 L Magnesium 1.7 11/10/19 05:19 WBC RBC Hgb Hct MCV MCH MCHC RDW Plt Count Sodium 131.9 L Potassium 3.5 L Chloride 109 H Carbon Dioxide 17 L Anion Gap 6 BUN 21 H Creatinine 1.23 Est GFR ( Amer) > 60 Glucose 93 Calcium 8.2 L Magnesium 11/07/19 14:41 Clean Catch Midstream Urine Culture - Final Mixed Urogenital Martha Impressions: Abdomen/Pelvis CT 11/07/19 13:40 IMPRESSION: There is mild left hydroureter secondary to the presence of 5 mm calculus in the distal ureter. Intrarenal calculi are seen bilaterally. There is mild sigmoid diverticulosis. There is thickening of a segment of the sigmoid colon that could indicate inflammation or neoplasm. Chest CT 11/07/19 13:40 IMPRESSION: There is a worsening disease in the lungs and mediastinum. Metastatic disease to bone. Assessment and Plan - Diagnosis (1) Hemoptysis Is this a current diagnosis for this admission?: Yes Plan: Most likely cause of hemoptysis is lung cancer. 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 Tells me his last VTE episode was over a year ago. I have kept his Xarelto on hold since admission. Oncology also recommends keeping Xarelto on hold for now. Continue Robitussin DM and codeine for his cough fits as this could be worsening his hemoptysis. Unfortunately, patient was not given another graduated cup for quantification of hemoptysis after sample was sent for culture. I have instructed nurse to provide patient with a graduated cup at bedside so we can adequately quantify his hemoptysis. CBC is stable. We will continue to monitor. (2) Metastatic lung cancer (metastasis from lung to other site) Qualifiers: Laterality: unspecified laterality Qualified Code(s): C34.90 - Malignant neoplasm of unspecified part of unspecified bronchus or lung Is this a current diagnosis for this admission?: Yes Plan: Chest CT shows right hilar/perihilar mass has worsened to 5.6 x 5.6 cm, still notes metastatic disease to left fourth and fifth ribs. CT also shows considerable opacification with groundglass of his left upper and left lower lung lobes with left pleural-based mass of 3.6 cm. Patient does have history of radiation to the left lung and some of the findings in the left lung may be secondary to radiation pneumonitis. Patient of Dr. Chavez. Has been receiving immunotherapy. I have discussed case with Dr. Swann who has evaluated patient and has recommended hospice to patient especially as patient's current treatment is no longer working and poor functional status make him a poor candidate for a new type of chemo. Patient still not yet decided on hospice. Still on full treatment. I will have respiratory therapist work with patient and start chest physiotherapy to help break up his excess secretions. Continue guaifenesin. Morphine IV as needed. Follow-up sputum cultures. (3) General weakness Is this a current diagnosis for this admission?: Yes Plan: Patient has been experiencing poor appetite, anorexia and generalized weakness for almost 2 weeks now. Blood work is consistent with dehydration and likely some mild to moderate malnutrition. This is related to wasting from his cancer. Continue boost supplements. Dietitian consulted. Continue Megace. Physical therapy. (4) Anemia of chronic disease Is this a current diagnosis for this admission?: Yes Plan: Anemia work-up last month was consistent with anemia of chronic disease. Likely secondary to malignancy. Does also have folic acid deficiency for which he is taking folate-we will continue. Hemoglobin continues to hold steady. Continue to monitor CBC especially in light of hemoptysis. (5) Tachycardia Is this a current diagnosis for this admission?: Yes Plan: Remains in sinus tachycardia even despite improvement of anemia. Likely secondary to lung disease. Continue to monitor on telemetry. We will try some Ativan and address his secretions. If tachycardia persists, may have to try some Lopressor. Unfortunately, given the progressive nature of his untreatable lung disease, his tachycardia may not be controllable. (6) Thrombocytopenia Is this a current diagnosis for this admission?: Yes Plan: Platelet is 48k today. If platelet remains below 50k, may need to discuss w/ Hem/Onc about need for transfusion given hemoptysis. (7) History of DVT of lower extremity Is this a current diagnosis for this admission?: Yes Plan: Was on Xarelto at home for DVT/PE history. Currently Xarelto is on hold due to hemoptysis. (8) Hypokalemia Is this a current diagnosis for this admission?: Yes Plan: Secondary to diarrhea, hydrochlorothiazide. Improved with aggressive potassium supplementation. We will keep on daily p.o. potassium. Monitor BMP. HCTZ discontinued (9) Ureteral stone with hydronephrosis Is this a current diagnosis for this admission?: Yes Plan: Noted with mild hydronephrosis of the left. Received IV fluids. P.o. hydration and continue tamsulosin. Ureteric calculus is small and only about 5 mm and as such likely will not warrant any intervention at this time. (10) HTN (hypertension) Qualifiers: Hypertension type: essential hypertension Qualified Code(s): I10 - Ess ential (primary) hypertension Is this a current diagnosis for this admission?: Yes Plan: Uncontrolled this morning. Continue lisinopril. Holding hydrochlorothiazide given hypokalemia. Placed on amlodipine in the meantime. - Time Time Spent with patient: 15-24 minutes Anticipated discharge: SNF Within: Other - unknown at this time
[2019-11-10] MEDS ORDERED: POTASSIUM CHLORIDE 10 MEQ TABLET.ER PO ONE ×2 (14:30→17:13)
[2019-11-10] MEDS ORDERED: IPRATROPIUM/ALBUTEROL 0.5-2.5 MG/3 ML AMPUL NEB ONE (18:22)
[2019-11-10] MEDS ORDERED: IPRATROPIUM/ALBUTEROL 0.5-2.5 MG/3 ML AMPUL NEB PRN (18:32)
--- NOTE | 2019-11-10 19:14 | Progress Note ---
Provider Note Provider Note: Patient continues to deteriorate. He was noted to have a lotof upper airway secretions and retracting with significant work of breathing and tachypnea. Also hypoxic at 81% on room air at the time. Lung auscultation revealed significant upper airway rhonchi and some wheezing. Has not received any narcotics. Placed o n 3L nc with improvement of pulse ox to 91-93%. Had respiratory therapist perform thorough chest physiotherapy with deep nasal suctioning and pep therapy. He has very weak cough. After intensive physiotherapy, he was able to cough up good amount of secretions. Chest XR still shows EUSEBIO opacity which is consistent with site of mass prior CTs which has shown progressive disease at this admission. Confirmed goals of care and code status with patient in presence of nurse and patient confirms that he still wants full code and full treatment despite my explanation that not much be able to fix his progressed lung cancer which is playing the major role. I have placed patient on BiPAP. Pulling good volumes on BIpap and RR is 18-22. Though, no current clear evidence of infection, I will place patient on empiric antibiotics with Vanc and Cefepime and transfer to IMCU. Should he deteriorate, will need intubation. I fear that ultimately intubation may be futile in presence of his progressive stage 4 lung cancer and poor candidacy for chemo. 40mins critical care time spent.
--- NOTE | 2019-11-10 19:16 | RADIOLOGY REPORT (SQ) ---
EXAM DESCRIPTION: CHEST SINGLE VIEW IMAGES COMPLETED DATE/TIME: 11/10/2019 6:50 pm REASON FOR STUDY: SHORTNESS OF BREATH COMPARISON: 11/10/2019 NUMBER OF VIEWS: One view. TECHNIQUE: Single frontal radiographic image of the chest acquired. LIMITATIONS: None. FINDINGS: Known right hilar mass and mediastinal adenopathy. Left upper lobe airspace disease not s ignificantly changed. IMPRESSION: No significant change. TECHNICAL DOCUMENTATION: JOB ID: [id number] Reading location - IP/workstation name: [email or web address]
[2019-11-10 20:32] LABS: ARTERIAL BLOOD BASE EXCESS -10.3 mmol/L; ARTERIAL BLOOD H2CO3 0.91 mmol/L (1.05-1.35); ARTERIAL BLOOD HCO3 14.8 mmol/L (20-24); ARTERIAL BLOOD O2 SATURATION 96.9 % (94-98); ARTERIAL BLOOD PCO2 30.2 mmHg (35-45); ARTERIAL BLOOD PH 7.31 (7.35-7.45); ARTERIAL BLOOD PO2 96.7 mmHg (80-100); ARTERIAL BLOOD TOTAL CO2 15.8 mmol/L (23-27)
[2019-11-10 20:35] LABS: ARTERIAL BLOOD FIO2 30%
[2019-11-10] MEDS: IPRATROPIUM/ALBUTEROL 0.5-2.5 MG/3 ML AMPUL NEB SCH (20:39)
[2019-11-10] MEDS: VANCOMYCIN HCL INJ 1000 MG VIAL IV SCH (21:38)
[2019-11-10] MEDS ORDERED: CEFEPIME 2 GM/D5W RTU 2 GM/50 ML RTUPB IV SCH (22:00)
[2019-11-10] MEDS ORDERED: CEFEPIME 2 GM/D5W RTU 2 GM/50 ML RTUPB IV ONE (22:21)
[2019-11-11] MEDS: IPRATROPIUM/ALBUTEROL 0.5-2.5 MG/3 ML AMPUL NEB SCH ×4 (02:06→19:47)
[2019-11-11 05:33] LABS: HEMATOCRIT 29.6 % (37.9-51.0); HEMOGLOBIN 10.2 g/dL (13.5-17.0); MEAN CORPUSCULAR HEMOGLOBIN 33.2 pg (27.0-33.4); MEAN CORPUSCULAR HGB CONC 34.3 g/dL (32.0-36.0); MEAN CORPUSCULAR VOLUME 97 fl (80-97); RED BLOOD COUNT 3.06 10^6/uL (4.35-5.55); RED CELL DISTRIBUTION WIDTH 21.2 % (11.5-14.0); WHITE BLOOD COUNT 7.1 10^3/uL (4.0-10.5)
[2019-11-11 05:45] LABS: ANION GAP 5 (5-19); BLOOD UREA NITROGEN 31 mg/dL (7-20); CALCIUM 8.3 mg/dL (8.4-10.2); CARBON DIOXIDE 16 mmol/L (22-30); CHLORIDE 112 mmol/L (98-107); GLUCOSE 110 mg/dL (75-110)
[2019-11-11 05:50] LABS: PLATELET COUNT 38 10^3/uL (150-450)
[2019-11-11 05:56] LABS: POTASSIUM 4.5 mmol/L (3.6-5.0)
[2019-11-11] MEDS: CEFEPIME HCL 2 GM in DEXTROSE 5%-WATER 50 ML IV SCH ×2 (09:51→21:04)
[2019-11-11] MEDS: NICOTINE 14 MG/24 HR PATCH.TD24 TD PRN (09:51)
[2019-11-11] MEDS: FOLIC ACID 1 MG TABLET PO SCH (09:54)
[2019-11-11] MEDS: MAGNESIUM OXIDE 400 MG TABLET PO SCH ×2 (09:54→17:30)
[2019-11-11] MEDS: FERROUS SULFATE 325 MG TABLET PO SCH (09:54)
[2019-11-11] MEDS: LISINOPRIL 10 MG TABLET PO SCH (09:55)
[2019-11-11] MEDS: AMLODIPINE BESYLATE 5 MG TABLET PO SCH (09:55)
[2019-11-11] MEDS: CYPROHEPTADINE HCL 4 MG TABLET PO SCH (09:55)
[2019-11-11] MEDS: TAMSULOSIN HCL 0.4 MG CAP.SR.24H PO SCH (09:56)
[2019-11-11] MEDS: GUAIFENESIN/D-METHORPHAN (200-20 MG) SYRUP 10 ML PO SCH ×3 (09:56→17:30)
[2019-11-11] MEDS: POTASSIUM CHLORIDE 10 MEQ TABLET.ER PO SCH (09:56)
[2019-11-11] MEDS: CHLORZOXAZONE 500 MG TABLET PO SCH ×2 (09:57→17:30)
[2019-11-11] MEDS: MEGESTROL ACETATE SUSP 400 MG/10 ML UDCUP PO SCH (09:57)
--- NOTE | 2019-11-11 10:48 | PDOC PROGRESS REPORT ---
Subjective Progress Note for:: 11/11/19 Subjective:: The patient is currently on BiPAP. He is not markedly tachypneic. He reports that his hemoptysis is only intermittently at this point. He still has a decreased appetite. He reported to respiratory therapy that the chest physiotherapy was in fact causing pain at this point. Reason For Visit: YANNA/DEHYDRATION,WEAKNESS DUE TO ACUTE ANEMIA,STAGE Physical Exam Vital Signs: Temp Pulse Resp BP Pulse Ox 97.2 F 65 18 113/72 100 11/11/19 08:17 11/11/19 08:17 11/11/19 08:17 11/11/19 08:17 11/11/19 08:17 Intake & Output 11/10/19 11/11/19 11/12/19 06:59 06:59 06:59 Intake Total 2740 1050 Output Total 102 Balance 2638 1050 Weight 61.7 kg 61.7 kg General appearance: PRESENT: cooperative, mild distress, well-developed Head exam: PRESENT: atraumatic, normocephalic Eye exam: PRESENT: other - Patient wears eyeglasses Ear exam: PRESENT: normal external ear exam. ABSENT: bleeding, drainage Mouth exam: PRESENT: other - BiPAP mask in place Respiratory exam: PRESENT: rhonchi - Still with coarse rhonchorous breath sounds, symmetrical, tachypnea - Borderline tachypnea, unlabored - Does not appear to be exhibiting increased work of breathing at this time. ABSENT: accessory muscle use, rales, wheezes Cardiovascular exam: PRESENT: RRR, +S1, +S2, systolic murmur. ABSENT: gallop, irregular rhythm, rubs GI/Abdominal exam: PRESENT: normal bowel sounds, soft. ABSENT: distended, guarding, tenderness Rectal exam: PRESENT: deferred Gentrourinary exam: ABSENT: indwelling catheter Extremities exam: PRESENT: other - Some asymmetry with the left leg greater than the right. Signs of chronic edema including skin changes and pigment deposition. With the wrinkling present it looks like the edema has gone down significantly recently. Neurological exam: PRESENT: alert, altered, oriented to person, oriented to place, oriented to situation, CN II-XII grossly intact Psychiatric exam: PRESENT: flat affect. ABSENT: agitated, anxious Focused psych exam: ABSENT: delusional, paranoid, restlessness Skin exam: PRESENT: dry, other - Marked cobblestoning and pigment deposition on legs and feet. No ulcerations noted.. ABSENT: normal color Results Laboratory Results: 11/11/19 04:58 11/11/19 04:58 11/10/19 11/11/19 11/11/19 20:12 04:58 04:58 WBC 7.1 RBC 3.06 L Hgb 10.2 L Hct 29.6 L MCV 97 MCH 33.2 MCHC 34.3 RDW 21.2 H Plt Count 38 L Carbonic Acid 0.91 L HCO3/H2CO3 Ratio 16:1 ABG pH 7.31 L ABG pCO2 30.2 L ABG pO2 96.7 ABG HCO3 14.8 L ABG O2 Saturation 96.9 ABG Base Excess -10.3 FiO2 30% Sodium 133.2 L Potassium 4.5 D Chloride 112 H Carbon Dioxide 16 L Anion Gap 5 BUN 31 H Creatinine 1.28 H Est GFR ( Amer) > 60 Glucose 110 Calcium 8.3 L Magnesium 1.8 Impressions: Abdomen/Pelvis CT 11/07/19 13:40 IMPRESSION: There is mild left hydroureter secondary to the presence of 5 mm calculus in the distal ureter. Intrarenal calculi are seen bilaterally. There is mild sigmoid diverticulosis. There is thickening of a segment of the sigmoid colon that could indicate inflammation or neoplasm. Chest CT 11/07/19 13:40 IMPRESSION: There is a worsening disease in the lungs and mediastinum. Metastatic disease to bone. Chest X-Ray 11/10/19 00:00 IMPRESSION: No significant change. Assessment and Plan - Diagnosis (1) Hemoptysis Is this a current diagnosis for this admission?: Yes Plan: Patient reports that hemoptysis seems to be improving according to the patient. We are holding anticoagulation. Still without documentation quantifying hemoptysis. (2) Metastatic lung cancer (metastasis from lung to other site) Qualifiers: Laterality: unspecified laterality Qualified Code(s): C34.90 - Malignant neoplasm of unspecified part of unspecified bronchus or lung Is this a current diagnosis for this admission?: Yes Plan: The patient wishes to speak with Dr. Chavez tomorrow. The patient's treatment has become ineffective. The patient would be appropriate for hospice. The patient wishes to remain full code at this time. Hopefully Dr. Jayaram can enlighten him. (3) Thrombocytopenia Is this a current diagnosis for this admission?: Yes Plan: Platelet count is 38. Will recheck tomorrow. (4) Anemia of chronic disease Is this a current diagnosis for this admission?: Yes Plan: Hemoglobin is 10.2. Continue to monitor. (5) Hypokalemia Is this a current diagnosis for this admission?: Yes Plan: Serum potassium is normal. Continue to monitor and supplement to keep serum potassium in the normal range. (6) General weakness Is this a current diagnosis for this admission?: Yes Plan: Secondary to metastatic malignancy with associated weight loss. Likely to be progressive. (7) Tachycardia Is this a current diagnosis for this admission?: Yes Plan: Pulse rate has been in the normal range today. Continue to monitor. (8) HTN (hypertension) Qualifiers: Hypertension type: essential hypertension Qualified Code(s): I10 - Essential (primary) hypertension Is this a current diagnosis for this admission?: Yes Plan: Much better with the addition of amlodipine. Will need to monitor to avoid hypotension. (9) Ureteral stone with hydronephrosis Is this a current diagnosis for this admission?: Yes Plan: The stone is reported as about 5 mm. Stones of this size usually pass spontaneously. Supportive care. Diuretics on hold. (10) History of DVT of lower extremity Is this a current diagnosis for this admission?: Yes Plan: Holding anticoagulation due to hemoptysis. We will need to reevaluate prior to resuming. - Time Time Spent with patient: 15-24 minutes Medications reviewed and adjusted accordingly: Yes Anticipated discharge: Home Within: Other - Unknown at this time
[2019-11-11] MEDS: CODEINE SULF 15 MG TABLET PO SCH ×4 (11:06→21:04)
[2019-11-11] MEDS: VANCOMYCIN HCL 500 MG in DEXTROSE 5%-WATER 100 ML IV SCH ×2 (11:07→22:36)
[2019-11-11] MEDS: VANCOMYCIN HCL INJ 1000 MG VIAL IV SCH (22:37)
[2019-11-12] MEDS: IPRATROPIUM/ALBUTEROL 0.5-2.5 MG/3 ML AMPUL NEB SCH ×4 (02:18→19:48)
--- NOTE | 2019-11-12 07:53 | PDOC PROGRESS REPORT ---
Subjective Progress Note for:: 11/12/19 Subjective:: Long discussion w/ pt today. He agrees to DNR. Also agrees w/ hospice but does not have caregivers. Will have DC planning work with pt. Reason For Visit: YANNA/DEHYDRATION,WEAKNESS DUE TO ACUTE ANEMIA,STAGE Physical Exam Vital Signs: Temp Pulse Resp BP Pulse Ox 97.7 F 105 H 18 132/73 H 98 11/12/19 03:42 11/12/19 07:38 11/12/19 07:38 11/12/19 03:42 11/12/19 07:38 Intake & Output 11/11/19 11/12/19 11/13/19 06:59 06:59 06:59 Intake Total 1050 350 50 Balance 1050 350 50 Weight 61.7 kg 61.7 kg General appearance: PRESENT: no acute distress, well-developed, well-nourished Head exam: PRESENT: atraumatic, normocephalic Eye exam: PRESENT: conjunctiva pink, EOMI, PERRLA. ABSENT: scleral icterus Ear exam: PRESENT: normal external ear exam Mouth exam: PRESENT: moist, tongue midline Neck exam: ABSENT: carotid bruit, JVD, lymphadenopathy, thyromegaly Respiratory exam: PRESENT: clear to auscultation joe. ABSENT: rales, rhonchi, wheezes Cardiovascular exam: PRESENT: RRR. ABSENT: diastolic murmur, rubs, systolic murmur Pulses: PRESENT: normal dorsalis pedis pul Vascular exam: PRESENT: normal capillary refill GI/Abdominal exam: PRESENT: normal bowel sounds, soft. ABSENT: distended, guarding, mass, organolmegaly, rebound, tenderness Rectal exam: PRESENT: deferred Extremities exam: PRESENT: full ROM. ABSENT: calf tenderness, clubbing, pedal edema Neurological exam: PRESENT: alert, awake, oriented to person, oriented to place, oriented to time, oriented to situation, CN II-XII grossly intact. ABSENT: motor sensory deficit Psychiatric exam: PRESENT: appropriate affect, normal mood. ABSENT: homicidal ideation, suicidal ideation Skin exam: PRESENT: dry, intact, warm. ABSENT: cyanosis, rash Results Laboratory Results: 11/11/19 04:58 11/11/19 04:58 Impressions: Abdomen/Pelvis CT 11/07/19 13:40 IMPRESSION: There is mild left hydroureter secondary to the presence of 5 mm calculus in the distal ureter. Intrarenal calculi are seen bilaterally. There is mild sigmoid diverticulosis. There is thickening of a segment of the sigmoid colon that could indicate inflammation or neoplasm. Chest CT 11/07/19 13:40 IMPRESSION: There is a worsening disease in the lungs and mediastinum. Metastatic disease to bone. Chest X-Ray 11/10/19 00:00 IMPRESSION: No significant change. Status: Image reviewed by me Assessment & Plan - Diagnosis (1) Lung cancer Qualifiers: Laterality: right Lung location: upper lobe of lung Qualified Code(s): C 34.11 - Malignant neoplasm of upper lobe, right bronchus or lung Is this a current diagnosis for this admission?: Yes Plan: Stage IV lung cancer progressed w/ 2 lines therapy, not candidate for further therapy. is imminent, maybe w/in 2 weeks, he is inpt hospice appropriate or home hospice possible but needs caregiver. Will discuss with DC planning to see what they can come up with. He agrees to DNR, I placed order in chart. - Time Time Spent with patient: 35 or more minutes
--- NOTE | 2019-11-12 09:21 | PDOC PROGRESS REPORT ---
Subjective Progress Note for:: 11/12/19 Subjective:: Patient reports he has chronic discomfort. He did not request additional pain medications at this time. Dr. Chavez did visit the patient this morning and he will be a DNR with arrangements for hospice being made. Reason For Visit: YANNA/DEHYDRATION,WEAKNESS DUE TO ACUTE ANEMIA,STAGE Physical Exam Vital Signs: Temp Pulse Resp BP Pulse Ox 97.8 F 107 H 20 138/77 H 100 11/12/19 08:18 11/12/19 08:18 11/12/19 08:18 11/12/19 08:18 11/12/19 08:18 Intake & Output 11/11/19 11/12/19 11/13/19 06:59 06:59 06:59 Intake Total 1050 350 50 Balance 1050 350 50 Weight 61.7 kg 61.7 kg General appearance: PRESENT: mild distress Head exam: PRESENT: atraumatic, normocephalic Eye exam: PRESENT: conjunctiva pale. ABSENT: scleral icterus Ear exam: PRESENT: normal external ear exam. ABSENT: bleeding, drainage Mouth exam: PRESENT: dry mucosa Respiratory exam: PRESENT: rhonchi - Sparse rhonchi, symmetrical, unlabored. ABSENT: tachypnea, wheezes Cardiovascular exam: PRESENT: RRR, +S1, +S2, systolic murmur - 3/6 GI/Abdominal exam: PRESENT: normal bowel sounds, soft. ABSENT: distended, guarding, tenderness Rectal exam: PRESENT: deferred Extremities exam: PRESENT: pedal edema Neurological exam: PRESENT: alert, awake, oriented to person, oriented to place, oriented to situation, CN II-XII grossly intact Psychiatric exam: PRESENT: flat affect. ABSENT: agitated, anxious Focused psych exam: ABSENT: delusional, paranoid, restlessness Skin exam: PRESENT: other - Marked keratinization of lower extremity skin likely from chronic edema. Significant pigment deposition extending through the she ath. Results Laboratory Results: 11/11/19 04:58 11/11/19 04:58 Impressions: Abdomen/Pelvis CT 11/07/19 13:40 IMPRESSION: There is mild left hydroureter secondary to the presence of 5 mm calculus in the distal ureter. Intrarenal calculi are seen bilaterally. There is mild sigmoid diverticulosis. There is thickening of a segment of the sigmoid colon that could indicate inflammation or neoplasm. Chest CT 11/07/19 13:40 IMPRESSION: There is a worsening disease in the lungs and mediastinum. Metastatic disease to bone. Chest X-Ray 11/10/19 00:00 IMPRESSION: No significant change. Assessment and Plan - Diagnosis (1) Hemoptysis Is this a current diagnosis for this admission?: Yes Plan: Per the patient it appears to be improving (2) Metastatic lung cancer (metastasis from lung to other site) Qualifiers: Laterality: unspecified laterality Qualified Code(s): C34.90 - Malignant neoplasm of unspecified part of unspecified bronchus or lung Is this a current diagnosis for this admission?: Yes Plan: The patient will be DNR and placement at an inpatient hospice facility is being sought (3) Thrombocytopenia Is this a current diagnosis for this admission?: Yes Plan: Platelets again are decreased to 38,000 (4) Anemia of chronic disease Is this a current diagnosis for this admission?: Yes Plan: Stable (5) Hypokalemia Is this a current diagnosis for this admission?: Yes Plan: Testing was normal yesterday. I did not repeat laboratory studies today (6) General weakness Is this a current diagnosis for this admission?: Yes Plan: Compared to malignancy along with decreased appetite (7) Tachycardia Is this a current diagnosis for this admission?: Yes Plan: Still with windows of tachycardia. No additional treatment at this time. Patient will be transitioning to hospice. Continue to monitor. (8) HTN (hypertension) Qualifiers: Hypertension type: essential hypertension Qualified Code(s): I10 - Essential (primary) hypertension Is this a current diagnosis for this admission?: Yes Plan: Blood pressure slightly above the normal range however no intervention at this time (9) Ureteral stone with hydronephrosis Is this a current diagnosis for this admission?: Yes Plan: No intervention as patient is transitioning to hospice (10) History of DVT of lower extremity Is this a current diagnosis for this admission?: Yes Plan: Still holding anticoagulation due to hemoptysis. Will likely not resume as patient is transitioning to hospice. - Time Time Spent with patient: 15-24 minutes Medications reviewed and adjusted accordingly: Yes Anticipated discharge: Hospice Within: within 72 hours
[2019-11-12] MEDS: LISINOPRIL 10 MG TABLET PO SCH (09:37)
[2019-11-12] MEDS: GUAIFENESIN/D-METHORPHAN (200-20 MG) SYRUP 10 ML PO SCH ×3 (09:37→17:44)
[2019-11-12] MEDS: CEFEPIME HCL 2 GM in DEXTROSE 5%-WATER 50 ML IV SCH ×2 (09:37→21:18)
[2019-11-12] MEDS: CODEINE SULF 15 MG TABLET PO SCH ×4 (09:38→21:18)
[2019-11-12] MEDS: TAMSULOSIN HCL 0.4 MG CAP.SR.24H PO SCH (09:38)
[2019-11-12] MEDS: FERROUS SULFATE 325 MG TABLET PO SCH (09:38)
[2019-11-12] MEDS: POTASSIUM CHLORIDE 10 MEQ TABLET.ER PO SCH (09:38)
[2019-11-12] MEDS: MAGNESIUM OXIDE 400 MG TABLET PO SCH ×2 (09:38→17:45)
[2019-11-12] MEDS: FOLIC ACID 1 MG TABLET PO SCH (09:38)
[2019-11-12] MEDS: AMLODIPINE BESYLATE 5 MG TABLET PO SCH (09:39)
[2019-11-12] MEDS: CYPROHEPTADINE HCL 4 MG TABLET PO SCH (09:40)
[2019-11-12] MEDS: MEGESTROL ACETATE SUSP 400 MG/10 ML UDCUP PO SCH (09:41)
[2019-11-12] MEDS: CHLORZOXAZONE 500 MG TABLET PO SCH ×2 (09:41→17:44)
[2019-11-12] MEDS: VANCOMYCIN HCL 500 MG in DEXTROSE 5%-WATER 100 ML IV SCH ×2 (11:21→23:08)
[2019-11-12 11:37] LABS: VANCOMYCIN,TROUGH 13.6 ug/mL (5.0-20.0)
[2019-11-12] MEDS: MORPHINE SULFATE 10 MG/ML INJ IV PRN (18:20)
[2019-11-13] MEDS: IPRATROPIUM/ALBUTEROL 0.5-2.5 MG/3 ML AMPUL NEB SCH ×3 (02:08→13:48)
--- NOTE | 2019-11-13 08:10 | PDOC PROGRESS REPORT ---
Subjective Progress Note for:: 11/13/19 Subjective:: Patient is doing okay, DC planning working on discharge plans, patient changed from codeine to oxycodone which would be easier to obtain as an outpatient. Reason For Visit: YANNA/DEHYDRATION,WEAKNESS DUE TO ACUTE ANEMIA,STAGE Physical Exam Vital Signs: Temp Pulse Resp BP Pulse Ox 97.5 F 89 16 160/82 H 97 11/13/19 03:55 11/13/19 07:00 11/13/19 03:55 11/13/19 03:55 11/13/19 03:55 Intake & Output 11/12/19 11/13/19 11/14/19 06:59 06:59 06:59 Intake Total 350 850 Output Total 600 Balance 350 250 Weight 61.7 kg 60.7 kg General appearance: PRESENT: no acute distress, well-developed, well-nourished Head exam: PRESENT: atraumatic, normocephalic Eye exam: PRESENT: conjunctiva pink, EOMI, PERRLA. ABSENT: scleral icterus Ear exam: PRESENT: normal external ear exam Mouth exam: PRESENT: moist, tongue midline Neck exam: ABSENT: carotid bruit, JVD, lymphadenopathy, thyromegaly Respiratory exam: PRESENT: clear to auscultation joe. ABSENT: rales, rhonchi, wheezes Cardiovascular exam: PRESENT: RRR. ABSENT: diastolic murmur, rubs, systolic murmur Pulses: PRESENT: normal dorsalis pedis pul Vascular exam: PRESENT: normal capillary refill GI/Abdominal exam: PRESENT: normal bowel sounds, soft. ABSENT: distended, guarding, mass, organolmegaly, rebound, tenderness Rectal exam: PRESENT: deferred Extremities exam: PRESENT: full ROM. ABSENT: calf tenderness, clubbing, pedal edema Neurological exam: PRESENT: alert, awake, oriented to person, oriented to place, oriented to time, oriented to situation, CN II-XII grossly intact. ABSENT: motor sensory deficit Psychiatric exam: PRESENT: appropriate affect, normal mood. ABSENT: homicidal ideation, suicidal ideation Skin exam: PRESENT: dry, intact, warm. ABSENT: cyanosis, rash Results Laboratory Results: 11/11/19 04:58 11/12/19 10:57 11/12/19 10:57 Creatinine 1.26 H Est GFR ( Amer) > 60 11/09/19 12:00 Sputum Gram Stain - Final 11/09/19 12:00 Sputum Sputum Culture - Final NORMAL MANDY Impressions: Abdomen/Pelvis CT 11/07/19 13:40 IMPRESSION: There is mild left hydroureter secondary to the presence of 5 mm calculus in the distal ureter. Intrarenal calculi are seen bilaterally. There is mild sigmoid diverticulosis. There is thickening of a segment of the sigmoid colon that could indicate inflammation or neoplasm. Chest CT 11/07/19 13:40 IMPRESSION: There is a worsening disease in the lungs and mediastinum. Metastatic disease to bone. Chest X-Ray 11/10/19 00:00 IMPRESSION: No significant change. Assessment & Plan - Diagnosis (1) Lung cancer Qualifiers: Laterality: right Lung location: upper lobe of lung Qualified Code(s): C34.11 - Malignant neoplasm of upper lobe, right bronchus or lung Is this a current diagnosis for this admission?: Yes Plan: No further treatment planned, hospice appropriate, discharge planning working on this - Time Time Spent with patient: 15-24 minutes
[2019-11-13] MEDS: CEFEPIME HCL 2 GM in DEXTROSE 5%-WATER 50 ML IV SCH (11:01)
[2019-11-13] MEDS: CHLORZOXAZONE 500 MG TABLET PO SCH (11:01)
--- NOTE | 2019-11-13 11:03 | PDOC PROGRESS REPORT ---
Subjective Progress Note for:: 11/13/19 Subjective:: The patient had a restless night. He is still having pain. He reports that hemoptysis is minimal at this time. Reason For Visit: YANNA/DEHYDRATION,WEAKNESS DUE TO ACUTE ANEMIA,STAGE Physical Exam Vital Signs: Temp Pulse Resp BP Pulse Ox 97.8 F 104 H 14 146/83 H 97 11/13/19 07:24 11/13/19 08:02 11/13/19 08:02 11/13/19 07:24 11/13/19 08:02 Intake & Output 11/12/19 11/13/19 11/14/19 06:59 06:59 06:59 Intake Total 350 850 Output Total 600 Balance 350 250 Weight 61.7 kg 60.7 kg General appearance: PRESENT: cooperative, mild distress, thin, well-developed Head exam: PRESENT: atraumatic, normocephalic Eye exam: PRESENT: conjunctiva pink. ABSENT: scleral icterus Ear exam: PRESENT: normal external ear exam. ABSENT: bleeding, drainage Mouth exam: PRESENT: dry mucosa, tongue midline Respiratory exam: PRESENT: rhonchi - Right side, symmetrical, other - Congested breath sounds. ABSENT: rales, tachypnea, wheezes Cardiovascular exam: PRESENT: RRR, +S1, +S2, systolic murmur - 3/6 radiates laterally GI/Abdominal exam: PRESENT: diminished bowel sounds, soft. ABSENT: distended, guarding, tenderness Rectal exam: PRESENT: deferred Gentrourinary exam: ABSENT: indwelling catheter Extremities exam: ABSENT: pedal edema Musculoskeletal exam: PRESENT: other - Decreased muscle mass. ABSENT: ambulatory Neurological exam: PRESENT: alert, awake, oriented to person, oriented to place, oriented to time, oriented to situation. ABSENT: altered Psychiatric exam: PRESENT: flat affect. ABSENT: agitated, anxious Focused psych exam: ABSENT: delusional, paranoid, restlessness Results Laboratory Results: 11/11/19 04:58 11/12/19 10:57 11/12/19 10:57 Creatinine 1.26 H Est GFR ( Amer) > 60 11/09/19 12:00 Sputum Gram Stain - Final 11/09/19 12:00 Sputum Sputum Culture - Final NORMAL MANDY Impressions: Abdomen/Pelvis CT 11/07/19 13:40 IMPRESSION: There is mild left hydroureter secondary to the presence of 5 mm calculus in the distal ureter. Intrarenal calculi are seen bilaterally. There is mild sigmoid diverticulosis. There is thickening of a segment of the sigmoid colon that could indicate inflammation or neoplasm. Chest CT 11/07/19 13:40 IMPRESSION: There is a worsening disease in the lungs and mediastinum. Metastatic disease to bone. Chest X-Ray 11/10/19 00:00 IMPRESSION: No significant change. Assessment and Plan - Diagnosis (1) Hemoptysis Is this a current diagnosis for this admission?: Yes Plan: Per the patient it appears to be improving. He reports minimal hemoptysis at this time. (2) Metastatic lung cancer (metastasis from lung to other site) Qualifiers: Laterality: unspecified laterality Qualified Code(s): C34.90 - Malignant neoplasm of unspecified part of unspecified bronchus or lung Is this a current diagnosis for this admission?: Yes Plan: Patient has agreed to hospice care. Dr. Chavez is arranging placement. (3) Thrombocytopenia Is this a current diagnosis for this admission?: Yes Plan: We will gradually transition to hospice care therefore no further laboratory monitoring at this time (4) Anemia of chronic disease Is this a current diagnosis for this admission?: Yes Plan: We will gradually transition to hospice care therefore no further laboratory monitoring at this time (5) Hypokalemia Is this a current diagnosis for this admission?: Yes Plan: We will gradually transition to hospice level care therefore no further laboratory monitoring at this time (6) General weakness Is this a current diagnosis for this admission?: Yes Plan: Continue supportive care (7) Tachycardia Is this a current diagnosis for this admission?: Yes Plan: Borderline tachycardia today. We will continue to monitor on telemetry. (8) HTN (hypertension) Qualifiers: Hypertension type: essential hypertension Qualified Code(s): I10 - Essential (primary) hypertension Is this a current diagnosis for this admission?: Yes Plan: Blood pressures slightly high this morning. It could be related to pain. As he is transitioning to hospice care no change in medications at this time. (9) Ureteral stone with hydronephrosis Is this a current diagnosis for this admission?: Yes Plan: No intervention at this time. (10) History of DVT of lower extremity Is this a current diagnosis for this admission?: Yes Plan: Anticoagulation on hold due to hemoptysis. - Time Time Spent with patient: 15-24 minutes Medications reviewed and adjusted accordingly: Yes Anticipated discharge: Hospice Within: when bed available
[2019-11-13] MEDS: FOLIC ACID 1 MG TABLET PO SCH (11:11)
[2019-11-13] MEDS: TAMSULOSIN HCL 0.4 MG CAP.SR.24H PO SCH (11:11)
[2019-11-13] MEDS: FERROUS SULFATE 325 MG TABLET PO SCH (11:11)
[2019-11-13] MEDS: POTASSIUM CHLORIDE 10 MEQ TABLET.ER PO SCH (11:12)
[2019-11-13] MEDS: MAGNESIUM OXIDE 400 MG TABLET PO SCH (11:12)
[2019-11-13] MEDS: MEGESTROL ACETATE SUSP 400 MG/10 ML UDCUP PO SCH (11:15)
[2019-11-13] MEDS: AMLODIPINE BESYLATE 5 MG TABLET PO SCH (11:16)
[2019-11-13] MEDS: LISINOPRIL 10 MG TABLET PO SCH (11:16)
[2019-11-13] MEDS: CYPROHEPTADINE HCL 4 MG TABLET PO SCH (11:16)
[2019-11-13] MEDS: GUAIFENESIN/D-METHORPHAN (200-20 MG) SYRUP 10 ML PO SCH ×3 (11:16→14:36)
[2019-11-13] MEDS: VANCOMYCIN HCL 500 MG in DEXTROSE 5%-WATER 100 ML IV SCH (11:40)
[2019-11-13] MEDS ORDERED: OXYCODONE HCL IR 5 MG TABLET PO SCH (12:00)
[2019-11-13 12:08] VITALS: BP 153/85
[2019-11-13] MEDS: MORPHINE SULFATE 10 MG/ML INJ IV PRN (14:36)
[2019-11-13] MEDS ORDERED: MORPHINE SULFATE 10 MG/ML INJ IV PRN ×2 (14:54)
[2019-11-13] MEDS ORDERED: LORAZEPAM INJ 2 MG/1 ML VIAL IV PRN (14:56)
--- NOTE | 2019-11-13 15:26 | PDOC PROGRESS REPORT ---
Subjective Progress Note for:: 11/13/19 Subjective:: Called to the floor urgently by the patient's nurse due to significant change in clinical condition. She reports significant dyspnea, tachypnea and tachycardia. Reason For Visit: YANNA/DEHYDRATION,WEAKNESS DUE TO ACUTE ANEMIA,STAGE Physical Exam Vital Signs: Temp Pulse Resp BP Pulse Ox 97.8 F 101 H 22 H 153/85 H 88 L 11/13/19 07:24 11/13/19 14:00 11/13/19 13:49 11/13/19 11:09 11/13/19 13:49 Intake & Output 11/12/19 11/13/19 11/14/19 06:59 06:59 06:59 Intake Total 350 850 Output Total 600 Balance 350 250 Weight 61.7 kg 60.7 kg General appearance: PRESENT: severe distress Respiratory exam: PRESENT: accessory muscle use, crackles, symmetrical, tachypnea, other - Very decreased inspiratory phase. ABSENT: rhonchi Cardiovascular exam: PRESENT: +S1, +S2, systolic murmur, tachycardia GI/Abdominal exam: PRESENT: diminished bowel sounds, soft. ABSENT: distended, tenderness Rectal exam: PRESENT: deferred Gentrourinary exam: ABSENT: indwelling catheter Neurological exam: PRESENT: alert, awake, oriented to person, oriented to place, oriented to situation Psychiatric exam: PRESENT: anxious, unusual affect - Anxious. Affect reflects his struggling to breathe.. ABSENT: agitated Results Laboratory Results: 11/11/19 04:58 11/12/19 10:57 11/09/19 12:00 Sputum Gram Stain - Final 11/09/19 12:00 Sputum Sputum Culture - Final NORMAL MANDY Impressions: Abdomen/Pelvis CT 11/07/19 13:40 IMPRESSION: There is mild left hydroureter secondary to the presence of 5 mm calculus in the distal ureter. Intrarenal calculi are seen bilaterally. There is mild sigmoid diverticulosis. There is thickening of a segment of the sigmoid colon that could indicate inflammation or neoplasm. Chest CT 11/07/19 13:40 IMPRESSION: There is a worsening disease in the lungs and mediastinum. Metastatic disease to bone. Chest X-Ray 11/10/19 00:00 IMPRESSION: No significant change. Assessment and Plan - Diagnosis (1) Acute respiratory failure with hypoxemia Is this a current diagnosis for this admission?: Yes Plan: The patient is extremely dyspneic and tachycardic. It could be related to fluid or there could have been more bleeding in the lung. With the nurse at the bedside the I reviewed treatment options. The patient has been refusing medications all day. Aggressive treatment would include large dose of Lasix and Hawley cath placement. The patient clearly conveyed that he would prefer comfort measures only at this time. I did notify Dr. Chavez who put the confirmatory order in place. I will put in the necessary orders including discontinuing all medications not related directly to comfort and ordering those medications that are directly related to comfort. (2) Hemoptysis Is this a current diagnosis for this admission?: Yes (3) Metastatic lung cancer (metastasis from lung to other site) Qualifiers: Laterality: unspecified laterality Qualified Code(s): C34.90 - Malignant neoplasm of unspecified part of unspecified bronchus or lung Is this a current diagnosis for this admission?: Yes (4) Thrombocytopenia Is this a current diagnosis for this admission?: Yes (5) Anemia of chronic disease Is this a current diagnosis for this admission?: Yes (6) Hypokalemia Is this a current diagnosis for this admission?: Yes (7) General weakness Is this a current diagnosis for this admission?: Yes (8) Tachycardia Is this a current diagnosis for this admission?: Yes (9) HTN (hypertension) Qualifiers: Hypertension type: essential hypertension Qualified Code(s): I10 - Essential (primary) hypertension Is this a current diagnosis for this admission?: Yes (10) Ureteral stone with hydronephrosis Is this a current diagnosis for this admission?: Yes (11) History of DVT of lower extremity Is this a current diagnosis for this admission?: Yes - Time Time Spent with patient: 35 or more minutes Total Critical Time (Minutes): 45 Medications reviewed and adjusted accordingly: Yes Anticipated discharge: Other - Comfort measures Within: Other - Likely to within 24 hours
[2019-11-13] MEDS ORDERED: MORPHINE SULFATE 10 MG/ML INJ IV ONE (15:30)
[2019-11-13] MEDS ORDERED: FUROSEMIDE INJ/PF 40 MG/4 ML SDV IV ONE (15:30)
--- NOTE | 2019-11-13 16:07 | Death Summary ---
Summary Date : 11/13/19 Time of :: 15:45 Autopsy: No Resuscitation Status: Comfort Measures Only Primary Care Provider: Dr. Bateman Consulting Provider: Dr. Chavez - Final Diagnosis (1) Acute respiratory failure with hypoxemia Is this a current diagnosis for this admission?: Yes (2) Hemoptysis Is this a current diagnosis for this admission?: Yes (3) Metastatic lung cancer (metastasis from lung to other site) Is this a current diagnosis for this admission?: Yes (4) Thrombocytopenia Is this a current diagnosis for this admission?: Yes (5) Anemia of chronic disease Is this a current diagnosis for this admission?: Yes (6) Hypokalemia Is this a current diagnosis for this admission?: Yes (7) General weakness Is this a current diagnosis for this admission?: Yes (8) Tachycardia Is this a current diagnosis for this admission?: Yes (9) HTN (hypertension) Is this a current diagnosis for this admission?: Yes (10) Ureteral stone with hydronephrosis Is this a current diagnosis for this admission?: Yes (11) History of DVT of lower extremity Is this a current diagnosis for this admission?: Yes Hospital Course:: The patient had a difficult hospital course. He was struggling with decisions regarding CODE STATUS and hospice. After admission he developed hemoptysis and his anticoagulants were held. He received a transfusion for severe anemia related to his malignancy. This was prior to the hemoptysis starting. The patient had bilateral lung masses as well as adenopathy. 1 lesion started to erode the left fifth rib. He was in constant discomfort. He was requiring BiPAP. His condition continued to decline. Yesterday after discussion with Dr. Chavez the patient opted for hospice care. He is going to transition to [facility]. Unfortunately the patient took a significant turn for the worse this afternoon. He became extremely tachypneic and tachycardic. His lungs had coarse rhonchi. It is unknown if this was related to pulmonary hemorrhage or edema. I was called to the bedside and did an evaluation with the patient. At this point he did agree to comfort measures only. Because of the severity of the respiratory failure, tachypnea and tachycardia he was administered IV morphine sulfate. The patient could not seem to oxygenate well and began to exhibit bradycardia. Blood pressures were not taken but he could certainly feel a difference in his pulses as they became softer and softer. Eventually he displayed agonal breathing with severe bradycardia. At 15:45 the patient had a flatline on telemetry. He had no audible heart sounds. He did not respond to painful stimulus and his pupils were fixed and dilated. He was pronounced at 3:[address] Chavez was notified.
== END 2019-11-13 16:40 | disposition left against medical advice (07) | DRG 682 ==
LOC: ER 12:57 → EH 19:59 → INTOOBSV 19:59 → 4S 22:18 → OBSVTOIN 11-09 08:06 → 5 11-10 20:52
PROVIDERS: ADMIT Family Medicine; ATTEND Hospitalist
PROC: 30233N1 Transfusion of Nonautologous Red Blood Cells into Peripheral Vein, Percutaneous Approach (ICD-10-PCS; principal; 2019-11-08)
PROC: 5A09457 Assistance with Respiratory Ventilation, 24-96 Consecutive Hours, Continuous Positive Airway Pressure (ICD-10-PCS; 2019-11-10)
DX: N17.9 Acute kidney failure, unspecified (principal); J96.01 Acute respiratory failure with hypoxia; C79.9 Secondary malignant neoplasm of unspecified site; R04.2 Hemoptysis; C34.92 Malignant neoplasm of unspecified part of left bronchus or lung; C79.51 Secondary malignant neoplasm of bone; E44.0 Moderate protein-calorie malnutrition; C34.11 Malignant neoplasm of upper lobe, right bronchus or lung; Z68.1 Body mass index [BMI] 19.9 or less, adult; N18.4 Chronic kidney disease, stage 4 (severe); D69.6 Thrombocytopenia, unspecified; E87.6 Hypokalemia; I12.9 Hypertensive chronic kidney disease with stage 1 through stage 4 chronic kidney disease, or unspecified chronic kidney disease; R53.1 Weakness; R00.0 Tachycardia, unspecified; N13.2 Hydronephrosis with renal and ureteral calculous obstruction; Z86.718 Personal history of other venous thrombosis and embolism; D63.8 Anemia in other chronic diseases classified elsewhere; M54.5 Low back pain; R59.9 Enlarged lymph nodes, unspecified; R00.1 Bradycardia, unspecified; I73.9 Peripheral vascular disease, unspecified; K21.9 Gastro-esophageal reflux disease without esophagitis; Z60.2 Problems related to living alone; F17.210 Nicotine dependence, cigarettes, uncomplicated; E83.42 Hypomagnesemia; E86.0 Dehydration; Z66 Do not resuscitate; Z53.29 Procedure and treatment not carried out because of patient's decision for other reasons; Z79.899 Other long term (current) drug therapy; Z88.0 Allergy status to penicillin; Z79.01 Long term (current) use of anticoagulants; Z92.3 Personal history of irradiation; Z92.21 Personal history of antineoplastic chemotherapy
CPT/HCPCS: 36415; 36430; 71045; 71046; 71260; 74177; 80048; 80053; 80202; 81001; 82565; 82803; 83690; 83735; 85025; 85027; 85610; 85730; 86850; 86900; 86901; 86920; 87070; 87086; 87205; 93005; 93010; 94660; 94667; 94668; 94799; 96360; 96361; 99285; G0378; J0360; J0692; J1940; J2270; J3370; J3475; J3480; J3490; J7030; J7050; J7060; J7120; P9016